=== PATIENT | male | born 1995 | race Caucasian/White ===

== ENCOUNTER 2019-05-02 21:06 | Emergency (ER) | payer BC, SELFPAY ==
[2019-05-02 21:07] VITALS: BP 104/64; PULSE 92; RESP 21; TEMP 36.7; O2SAT 97; BMI 30.5
[2019-05-02 21:19] VITALS: BP 104/64; PULSE 79; RESP 24; TEMP 36.6; O2SAT 97
--- NOTE | 2019-05-02 21:21 | ED.VIS.GEN ---
History of Present Illness Chief Complaint: Shortness of Breath Detail of Chief Complaint: Sinus congestion x1.5 weeks, respiratory symptoms for 2 days Informant: Patient Onset: Days Context: Sudden Onset Timing: Continuous Quality: Cough, wheezing and dyspnea Location: Respiratory and sinuses Current Severity: Moderate Maximum Severity: Severe Worsened by: Activity Relieved by: Nothing Associated Symptoms: Headache, nasal congestion, shortness of breath and wheezing Narrative: Patient is a 23-year-old male who has history of asthmatic bronchitis who presents to the [facility] with malaise, headache, nasal congestion, cough with shortness of breath and wheezing. Nasal symptoms started 1.5 weeks ago. Cough and respiratory symptoms started 2 days ago. He does chew tobacco. He does admit to drinking. He denies fever, chills or night sweats. He denies change in vision or blurred vision. Does complain of his eyes being bloodshot. He denies myalgias arthralgias. He denies GI symptoms. He denies ill contacts. Prior similar symptoms: Yes - Year ago Recent Illness/Hospitalization: No - Past Medical History (1) History of bronchitis Status: Acute Past Medical History - Allergies and Home Meds Allergies/Adverse Reactions: Allergies No Known Allergies Allergy (Verified 05/02/19 21:30) Primary Care Physician: Care Physician,No Primary [Primary Care Provider] - Prior records reviewed: Yes Surgical History: no surgical history Lives: Alone Smoking Status: Current every day smoker Alcohol: Rare Drugs: None Review of Systems General: Denies: Chills, Fever, Malaise, Sweats Eyes: Denies: Visual changes - bilaterally, Blurred Vision - bilaterally ENT: Reports: Rhinorrhea. Denies: Bilateral ear pain, Sore throat Cardiovascular: Denies: Chest pain, Palpitations, Heart racing Respiratory: Reports: Dyspnea, Cough, Dyspnea on exertion. Denies: Sputum Gastrointestinal: Denies: Abdominal pain, Nausea, Vomiting, Diarrhea, Melena, Hematochezia Genitourinary: Denies: Dysuria, Hematuria, Frequency Musculoskeletal: Denies: Myalgias, Arthralgias, Neck pain, Back pain, Swelling, Extremity Pain Skin: Denies: Rash, Wounds Neurological: Reports: Headache. Denies: Weakness, Parasthesia Physical Exam Vital Signs/Narrative: Vital Signs Temp Pulse Resp BP Pulse Ox 05/02/19 21:07 98.0 F 92 21 H 104/64 97 Inital Vital Signs reviewed: Yes General: Well nourished, Well developed, No Acute Distress Head: Normocephalic, Atraumatic Eyes: Perrl, EOMI. Negative for: Pale conjunctiva, Scleral icterus ENT: Moist mucous membranes, No rhinorrhea, TM's clear Neck: Supple, Nontender Cardiovascular: Regular rate, Regular rhythm, No murmurs Respiratory: Chest nontender, Wheezing, Decreased Air Movement, Retractions. Negative for: No distress, CTA bilaterally Abdomen: Soft, Nontender, Nondistended, Normal bowel sounds Back: Nontender, Normal Inspection. Negative for: CVA tenderness Extremities: Nontender, No edema Skin: Normal color, No rash Neurological: Alert, Oriented x3, Cranial nerves II-XII grossly intact, Normal Strength, Normal Sensation Psychological: Normal affect, Normal Mood Diagnostic/Tx/Re-eval Chest X-Ray - ED: 2 View, Normal, Heart, Mediastinum, Bony Structures, No Acute Disease, - - Chest x-ray was in interpreted by me as normal other than hyperaeration. My read and reviewed was after radiologist had interpreted the x-ray. Impressions Chest X-Ray 05/02/19 21:50 IMPRESSION: Hyperinflated lungs. No acute cardiopulmonary disease process is seen. Electronically Signed: Pino Syed MD at 22:23 EST , Service support , 05/02/19 21:50 Chest PA and Lateral [RAD] Stat - Medical Decision Making Chest x-ray was obtained to assess for pneumonia versus bronchitis. He was treated with albuterol and prednisone. Will reevaluate after x-rays and treatment. Was reassessed at 2245. He is no longer wheezing. Is no longer coughing. Plan is to discharge with burst of prednisone, albuterol MDI with spacer and he was told to use the and inhaler when he has uncontrolled coughing. He requested a cough syrup. He was informed to use the inhaler. ED Disposition - Plan for ED Patient: Disposition: Home or Assisted Living Diagnosis: Acute bronchitis, Hyperactive airway disease Instructions: BRONCHITIS with Wheezing (Adult) Prescriptions: Prednisone [Deltasone] 40 mg PO DAILY #10 tab Prescription Printed Inhaler, Assist Devices [Space Chamber Plus] 1 ea MC UD #1 spacer Prescription Printed Albuterol Inhaler [Ventolin Hfa] 2 puff INHALATION Q4H PRN PRN #1 inhaler PRN Reason: Wheezing Prescription Printed Referrals: Care Physician,No Primary [Primary Care Provider] - Frank Joaquin III, MD [STAFF PHYSICIAN] - 3-5 Days if not improving
[2019-05-02 21:25] VITALS: PULSE 105; RESP 18
[2019-05-02] MEDS: Albuterol 2.5 MG/3 ML VIAL.NEB. INHALATION ×3 (21:27)
[2019-05-02] MEDS: predniSONE 20 MG Tablet 60 MG PO (21:30)
--- NOTE | 2019-05-02 21:50 | RAD_ITS ---
STUDY: X-RAY CHEST REASON FOR EXAM: Male, 23 years old. Cough TECHNIQUE: PA and lateral views of the chest. COMPARISON: None. FINDINGS: The lungs are hyperinflated. There is no demonstrated pleural abnormality. Normal size heart. Normal mediastinum and chacho. Normal visualized pulmonary arteries. Normal visualized aortic arch and descending thoracic aorta. Normal visualized thoracic spine. Normal visualized ribs, clavicles, and shoulders. There is no demonstrated abnormality of the visualized soft tissue structures of the upper abdomen. RAD/Chest PA and Lateral IMPRESSION: Hyperinflated lungs. No acute cardiopulmonary disease process is seen. Electronically Signed: Pino Syed MD at 22:23 EST , Service support ,
[2019-05-02 22:09] VITALS: BP 110/71; PULSE 87; RESP 20; TEMP 36.6; O2SAT 98
[2019-05-02 22:56] VITALS: BP 110/60; PULSE 87; RESP 16; O2SAT 100
== END 2019-05-02 22:57 | disposition home or self-care (01) ==
PROVIDERS: Emergency Provider Emergency Medicine
DX: J20.9 Acute bronchitis, unspecified (principal); J45.909 Unspecified asthma, uncomplicated; F17.220 Nicotine dependence, chewing tobacco, uncomplicated
CPT/HCPCS: 71046; 94640; 99251; 99283; G0463

== ENCOUNTER 2024-03-27 10:01 | Emergency (ER) | payer SELFPAY ==
[2024-03-27 10:01] VITALS: BP 154/90; PULSE 90; RESP 18; TEMP 36.8; O2SAT 99; BMI 36.7
[2024-03-27 11:26] VITALS: O2SAT 97
--- NOTE | 2024-03-27 11:38 | EX.ED.VIS.UR ---
HPI HPI - URI History of Present Illness Chief Complaint: Cold Sx Narrative Narrative: Patient presents with cough and congestion that has been getting worse over the past 3 days. Patient states today he is coughing up some green sputum. Patient states he has had some mild shortness of breath with this. Patient also admits to a headache. Patient admits to a sore throat. Patient describes his pain as sharp. Patient states nothing makes it worse and nothing makes it better. Patient denies any fevers or chills. ROS ROS ED Constitutional Constitutional ED: Denies chills or fever(s) Eyes Eyes: Denies blurry vision or change in vision ENT ENT ED: Reports sore throat; Denies rhinorrhea Cardiovascular Cardiovascular: Denies chest pain or palpitations Respiratory/Chest Respiratory/Chest: Reports cough and dyspnea Gastrointestinal Gastrointestinal: Reports diarrhea; Denies nausea or vomiting Genitourinary Genitourinary ED: Denies dysuria or hematuria Musculoskeletal Musculoskeletal: Denies back pain or neck pain Integumentary Denies abscess or rash Neurologic Neurologic: Reports headache(s); Denies weakness Allergic/Immunologic Allergic/Immunologic ED: Denies mouth swelling or urticaria PFSH PFS Medical History (Updated 03/27/24 @ 13:[address] German Zhang DO) Chronic neck and back pain Chest pain Severe headache Shortness of breath Home Medications ?Medication ?Instructions ?Recorded ?Last Taken ?Type azithromycin 250 mg tablet 250 mg PO DAILY 4 days #4 tabs 03/27/24 Unknown Rx Allergy/AdvReac Type Severity Reaction Status Date / Time No Known Allergies Allergy Verified 03/27/24 11:26 Surgical History (Updated 03/27/24 @ 11:[address] German Zhang DO) Hx of tonsillectomy Social History Smoking Status: Current some day smoker tobacco type: smokeless tobacco Smokeless tobacco user: chewing tobacco alcohol intake: current alcohol intake frequency: holidays/special occasions only EXAM Physical Exam Const Vital Signs: 03/27/24 10:01 03/27/24 11:25 03/27/24 11:26 Temperature 98.3 F Temperature Source Temporal Pulse Rate 90 Respiratory Rate 18 Respiratory Effort Normal Normal Respiratory Depth Normal Respiratory Pattern Normal Normal Blood Pressure 154/90 H Blood Pressure Mean 111 Pulse Ox 99 Oxygen Delivery Method Room Air Room Air Positive well nourished and well developed General Appearance ED: well developed and NAD HEENT Reports moist mucous membranes normocephalic Neck supple, no meningeal signs and no JVD Resp normal respiratory effort and clear to auscultation bilaterally Cardio Rate: regular rate Rhythm: regular rhythm GI non-tender and non-distended Palpation: soft Neuro oriented x3, CN's II-XII intact bilaterally and no sensory deficits noted Sensorium / Orientation: alert Motor Exam: strength 5/5 throughout Psych mental status grossly normal MDM MDM MDM Narrative Medical decision making narrative: Differential diagnosis includes strep pharyngitis, viral pharyngitis, bronchitis, and pneumonia. Chest x-ray will be obtained to assess for pneumonia and bronchitis. Rapid strep will be obtained to assess for strep pharyngitis. COVID-19, RSV, and influenza PCR will be obtained to assess for viral illness. Lab Data Lab results narrative: COVID-19 PCR was reviewed and was negative. Influenza PCR was reviewed and was negative for influenza A and influenza B. RSV PCR was reviewed and was negative. Radiography Chest X-Ray - ED: 2 View, Read by ED Physician, Read by Radiologist and Left Infiltrate Diagnostic Testing: Clinical Impression(s) from Imaging Studies Chest X-Ray 03/27/24 11:43 IMPRESSION: Mild left basilar opacity, likely pneumonia. Electronically Signed: Naomi Weaver MD at 12:50 EDT Reading Location ID and State: [facility] / [place] Tel , Service support , PA and lateral chest x-ray was obtained. There are 2 views. On my independent interpretation, lung collier show a left basilar infiltrate. There is normal cardiac silhouette. Bony thorax is normal. Radiologist also interpreted the x-ray and agrees. Treatment and Re-Evaluation Narrative: Tobacco cessation was discussed. The patient was advised of his findings. Patient was given a dose of Zithromax here. Patient was given a prescription for Zithromax. Patient was instructed to follow-up with his primary care physician in 5 to 7 days. Patient was instructed return if worse in any way. Patient instructed use [id number] cough medications and decongestant as needed. Patient understood and was agreeable with the plan. All questions were answered. Discharge Plan Triage Chief Complaint: Cold Sx ED Provider: German Zhang Dx/Rx/DC Orders Clinical Impression: Pneumonia, Tobacco use Instructions: ED Pneumonia (Adult) Prescriptions: Changed azithromycin 250 mg tablet 250 mg PO DAILY 4 Days Qty: 4 0RF Rx Instructions: 250 mg orally; Primary Care Provider: Care Physician,No Primary Referrals: John Paul Renee MD [Med Staff - Active Staff] - 5-7 Days Care Physician,No Primary [Primary Care Provider] - Print Language: Burmese Disposition Disposition: Home, Self Care
--- NOTE | 2024-03-27 11:43 | RAD_ITS ---
HISTORY: Cough. TECHNIQUE: XR Chest 2 Views. COMPARISON: 05/02/2019. FINDINGS: CARDIOMEDIASTINAL BORDERS: Cardiac silhouette within normal limits in size. Mediastinal contour unremarkable. LUNGS: Mild consolidation in the left lung base. PLEURA: No pleural effusion or pneumothorax seen. OSSEOUS STRUCTURES: Unremarkable. RAD/Chest PA and Lateral IMPRESSION: Mild left basilar opacity, likely pneumonia. Electronically Signed: Naomi Weaver MD at 12:50 EDT ,
[2024-03-27] MEDS: Azithromycin 250 MG Tablet 500 MG PO (13:36)
[2024-03-27 13:40] VITALS: BP 134/91; PULSE 112; RESP 20; TEMP 36.6; O2SAT 99
== END 2024-03-27 13:41 | disposition home or self-care (01) ==
PROVIDERS: Emergency Provider Emergency Medicine; Visit Provider Emergency Medicine
DX: J18.9 Pneumonia, unspecified organism (principal)
CPT/HCPCS: 71046; 87631; 87651; 99283

== ENCOUNTER → 2024-11-07 04:00 | Outpatient (REF) | payer MEDICAID, SELFPAY ==
--- OUTSIDE RECORDS SUMMARY | 2024-11-07 03:58 | XMS RPT_ITS | CCD ---
Author Organization [facility] Care Team Providers Care Preparation Department Supervisor Name Role Phone PHYSICIAN, NONE Primary Care Physician Unavailab le PHYSICIAN, NONE Primary Care Unavailable RAQUEL LOAIZA MD Attending Unavailable German Zhang Attending Unavailable Care Physician, No Primary Primary Care Unava GABRIELE Day Consulting Unavailable GANGA CASTELLANO Admitting Unavailable GANGA CASTELLANO Attending Unavailable NOAH COLVIN Referring Unavailable Generic Provider , No Assigned Pcp Primary Car e Provider Unavailable Sara Montelongo Unavailable Unavailable Allergies Allergy Classification Reported Allergen(s) Allergy Type Date of Onset Reaction(s) Facility (2 sources) Cat; Translations: [CATS] Propensity to adverse reactions (disorder) 9 [facility] Repository (1 source) Dust; Translations: [DUST] Propensity to adverse reactions (disorder) 9 [facility] Medications Current Medications Medication Drug Class(es) Dates Sig (Normalized) Sig (Original) acetaminophen 325 mg oral tablet (2 sources) Start: 11-06-2024 take 3 tablets by mouth every six hours acetaminophen (Tylenol) 325 mg tablet Indications: Displaced comminuted fracture of shaft of right fibula, initial encounter for closed fracture Take 3 tablets (975 mg) by mouth every 6 hours. 11/06/2024 Active Start: 11-01-2024 take 975 mg by mouth every six hours as needed for pain 975 mg, oral, Every 6 hours scheduled, First dose on [place] 11/01/24 at 1900, If ordered PRN for pain, nurse is permitted to administer this medication for higher pain scores based on patient preference? Yes calcium carbonate 1500 mg / cholecalciferol 0.01 mg oral tablet (2 sources) Vitamin D Start: 11-02-2024 End: 11-06-2024 take 1 tablet by mouth twice daily calcium carbonate-vitamin D3 600 mg-10 mcg (400 unit) tablet Indications: Displaced comminuted fracture of shaft of right fibula, initial encounter for closed fracture Take 1 tablet by mouth 2 times a day. 11/06/2024 Active cephalexin 500 mg oral capsule (1 source) Cephalosporin Antibacterial Start: 02-23-2024 End: 03-01-2024 cephalexin 500 mg oral capsule Dose : 500 mg = 1 cap(s), Oral, q8h, # 30 cap(s), 0 Refill(s), 03/01/24 11:13:00 PM EDT, 104.5 Start Date: 02/23/24 Stop Date: 03/01/24 Status: Ordered doxycycline hyclate 100 mg oral capsule (1 source) Tetracycline-clas s Drug Start: 02-23-2024 End: 03-04-2024 doxycycline hyclate 100 mg oral capsule Dose : 100 mg = 1 cap(s), Oral, BID, X 10 day(s), # 20 cap(s), 0 Refill(s), 03/04/24 11:12:00 PM EDT, 104.5 Start Date: 02/23/24 Stop Date: 03/04/24 Status: Ordered 0.3 ml enoxaparin sodium 100 mg/ml prefilled syringe (2 sources) Low Molecular Weight Heparin Start: 11-06-2024 inject 0.3 mL by subcutaneous injection every twelve hours enoxaparin (Lovenox) 30 mg/0.3 mL syringe Indications: Displaced comminuted fracture of shaft of right fibula, initial encounter for closed fracture Inject 0.3 mL (30 mg) under the skin every 12 hours. 11/06/2024 Active Start: 11-01-2024 inject 30 mg by subc utaneous injection every twelve hours 30 mg, subcutaneous, Every 12 hours, First dose on Tue11/01/24 at 1900 folic acid 1 mg oral tablet (2 sources) Start: 11-07-2024 take 1 tablet by mouth once daily folic acid (Folvite) 1 mg tablet Indications: Alcohol use Take 1 tablet (1 mg) by mouth once daily. 11/07/2024 Active Start: 11-01-2024 take 1 mg by mouth once daily 1 mg, oral, Daily, First dose on Tue11/01/24 at 0900 Lotrimin Ultra Athlete's Foot 1% topical cream (1 source) Start: 02-23-2024 End: 03-01-2024 Lotrimin Ultra Athlete's Foot 1% topical cream Apply 1 paz, Topical, BID, # 12 gram(s), 0 Refill(s), Cream, 104.5 Start Date: 02/23/24 Stop Date: 03/01/24 Status: Ordered melatonin 3 mg oral tablet (2 sources) Start: 11-01-2024 melatonin 3 mg tablet Indications: Insomnia, unspecified type Take 1 tablet (3 mg) by mouth as needed at bedtime for sleep. 11/06/2024 Active methocarbamol 500 mg oral tablet (3 sources) Muscle Relaxant Start: 11-05-2024 take 1 tablet by mouth every six hours methocarbamol (Robaxin) 500 mg tablet Indications: Displaced comminuted fracture of shaft of right fibula, initial encounter for closed fracture Take 1 tablet (500 mg) by mouth every 6 hours. 11/06/2024 Active Start: 11-02-2024 End: 11-02-2024 take 500 mg by mouth every eight hours 500 mg, oral, Every 8 hours scheduled, First dose (after last modification) on Tue11/02/24 at 1030 multivitamin with minerals 1 tablet (1 source) Start: 11-01-2024 take 1 tablet by mouth once daily 1 tablet, oral, Daily, First dose on Tue11/01/24 at 0900 multivitamin with minerals tablet (1 source) Start: 11-07-2024 take 1 tablet by mouth once daily multivitamin with minerals tablet Indications: Alcohol use Take 1 tablet by mouth once daily. 11/07/2024 Active 24 hr nicotine 0.583 mg/hr transdermal system (2 sources) Cholinergic Nicotinic Agonist Start: 11-07-2024 apply 1 dose transdermal route every twenty-four hours nicotine (Nicoderm CQ) 14 mg/24 hr patch Indications: Cigarette smoker Place 1 patch over 24 hours on the skin once daily. 11/07/2024 Active Start: 11-03-2024 apply 1 dose transde rmal route once daily 1 patch, transdermal, Administer over 24 Hours, Daily, First dose on Tue11/03/24 at 1245 oxyCODONE hydrochloride 5 mg oral tablet (3 sources) Opioid Agonist Start: 11-01-2024 End: 11-09-2024 take 1 tablet by mouth every six hours for pain oxyCODONE (Roxicodone) 5 mg immediate release tablet Indications: Displaced comminuted fracture of shaft of right fibula, initial encounter for closed fracture Take 1 tablet (5 mg) by mouth every 6 hours if needed for severe pain (7 - 10) for up to 3 days. 6 tablet 11/06/2024 11/09/2024 Active Start: 11-01-2024 take 1 tablet by rose th every four hours as needed 10 mg, oral, Every 4 hours PRN, pain severe (7-10), first line, Starting on Zuly 11/01/24 at 1835, If ordered PRN for pain, nurse is permitted to administer this medication for higher pain scores based on patient preference? Yes oxygen (O2) therapy (1 source) Start: 11-01-2024 PHENobarbital 64.8 mg oral tablet (3 sources) Start: 11-06-2024 take 1 tablet by mouth every six hours PHENobarbital (Luminal) 64.8 mg tablet Indications: Alcohol use Take 1 tablet (64.8 mg) by mouth every 6 hours if needed (RASS >=2 (agitation) AND/OR >=2 of the LYNDA symptoms (SBP > 160 mmHG, HR >110bpm, diaphoresis, tremors, hallucinations)). 11/06/2024 Active Start: 11-01-2024 take 1 tablet by rose th every six hours as needed 64.8 mg, oral, Every 6 hours PRN, RASS >=2 (agitation) AND/OR >=2 of the LYNDA symptoms (SBP > 160 mmHG, HR >110bpm, diaphoresis, tremors, hallucinations), Starting on Zuly 11/01/24 at 0412 Start: 11-01-2024 End: 11-01-2024 165.75 mg (rounded from 164. 16 mg = 2.4 mg/kg 68.4 kg [place] weight), intramuscular, Once, On Zuly 11/01/24 at 0415, For 1 dose polyethylene glycol 3350 56077 mg powder for oral solution (2 sources) Osmotic Laxative Start: 11-07-2024 polyethylene glycol (Glycolax, Miralax) 17 gram packet Indications: Drug-induced constipation Take 17 g by mouth once daily. 11/07/2024 Active Start: 11-01-2024 17 g, oral, Da alexandrea, First dose on [facility] 11/01/24 at 1900, Bowel Regimen - for prevention of constipation. thiamine 100 mg oral tablet (3 sources) Start: 11-07-2024 take 1 tablet by mouth once daily thiamine (Vitamin B-1) 100 mg tablet Indications: Alcohol use Take 1 tablet (100 mg) by mouth once daily. 11/07/2024 Active Start: 11-04-2024 100 mg, oral, Daily, First dose on [place] 11/04/24 at 0900, To start after three days of IV Start: 11-01-2024 End: 11-04-2024 100 mg, intravenous, Daily, First dose on [facility] 11/01/24 at 0900, For 3 doses, For IV push use, administer over 1-2 minutes. Completed/Discontinued Medications Medication Drug Class(es) Dates Sig (Normalized) Sig (Original) calcium chloride 0.0014 meq/ml / potassium chloride 0.004 meq/ml / sodium chloride 0.103 meq/ml / sodium lactate 0.028 meq/ml injectable solution (2 sources) Start: 11-01-2024 End: 11-01-2024 take 100 mL intravenously every hour 100 mL/hr, intravenous, Continuous, Starting on [facility] 11/01/24 at 1430, For 1 day, Recovery (only) Start: 11-01-2024 End: 11-01-2024 1,000 mL, intravenous, at 99 9 mL/hr, Administer over 1 Hours, Once, On [facility] 11/01/24 at 1055, For 1 dose ceFAZolin 2000 mg injection (1 source) Cephalosporin Antibacterial Start: 11-01-2024 End: 11-02-2024 take 2 g intravenously every eight hours 2 g, intravenous, Administer over 30 Minutes, Every 8 hours, First dose on [facility] 11/01/24 at 2100, For 2 doses, premix bag, Dosing of this medication varies based on severity of illness. Does this patient have sepsis or concern for sepsis (probable or documented infection plus systemic manifestations of infection)? No, Suspected Indication (Select all that apply): Surgical Prophylaxis, Indications: Surgical Prophylaxis 0.5 ml HYDROmorphone hydrochloride 1 mg/ml prefilled syringe (3 sources) Opioid Agonist Start: 11-01-2024 End: 11-05-2024 0.2 mg, intravenous, Every 2 hour PRN, pain breakthrough, Starting on Tue11/01/24 at 1835 Start: 11-01-2024 End: 11-01-2024 0.5 mg, intravenous, Every 5 min PRN, pain severe (7-10), first line, Starting on Tue11/01/24 at 1405, Recovery (only), Max total of 4 mg regardless of dose. Start: 11-01-2024 End: 11-02-2024 0.4 mg, intravenous, Every 3 hours PRN, pain severe (7-10), first line, Starting on Tue11/01/24 at 0753 iohexol (OMNIPaque) 350 mg iodine/mL solution 100 mL (1 source) Start: 11-01-2024 End: 11-01-2024 100 mL, intravenous, Once in imaging, Starting on Tue11/01/24 at 0017, For 1 dose 1 ml morphine sulfate 4 mg/ml injection (1 source) Opioid Agonist Start: 10-31-2024 End: 10-31-2024 2 mg, intravenous, Once, On Tue10/31/24 at 1945, For 1 dose Problems Problem Classification Problem Date Documented Da te Episodic/Chronic Alcohol-related disorders (1 source) Current drinker; Translations: [Alcohol use] 11-06-2024 Chronic Fracture of lower limb (8 sources) Displaced comminuted fracture of shaft of right fibula, initial encounter for closed fracture; Translations: [Closed fracture of shaft of fibula] Onset: 10-31-2024 Episodic Other gastrointestinal disorders (1 source) Drug-induced constipation; Translations: [Drug induced constipation] 11-06-2024 Episodic Other nutritional; endocrine; and metabolic disorders (2 sources) Obesity; Translations: [Obesity, unspecified] Onset: 11-01-2024 11-01-2024 Chronic Residual codes; unclassified (1 source) Insomnia; Translations: [Insomnia, unspecified] 11-06-2024 Episodic Substance-related disorders (1 source) Cigarette smoker ; Translations: [Nicotine dependence, cigarettes, uncomplicated] 11-06-2024 Chronic Unclassified (1 source) Cough, unspecified; Translations: [Cough, unspecified] Onset: 04-16-2024 Results Test Name Value Interpretation Reference Range Facility CBC panel Auto (Bld)on 11-03 Erythrocyte distribution width (RBC) [Ratio] 12.2 % 11.5 - 14.5 % [facility] Hematocrit (Bld) [Volume fraction] 42.7 % 41.0 - 52.0 % [facility] Hemoglobin (Bld) [Mass/Vol] 13.6 g/dL 13.5 - 17.5 g/dL [facility] Interpretation and review of laboratory results Abnormal [facility] MCH (RBC) [Entitic mass] 30 pg 26.0 - 34.0 pg [facility] MCHC (RBC) [Mass/Vol] 31.9 g/dL Low 32.0 - 36.0 g/dL [facility] MCV (RBC) [Entitic vol] 94 fL 80 - 100 fL [facility] Nucleated RBC/100 WBC (Bld) [Ratio] 0 % [facility] Platelets (Bld) [#/Vol] 174 10*3/uL [facility] RBC (Bld) [#/Vol] 4.54 10*6/uL [facility] WBC (Bld) [#/Vol] 8 10*3/uL [facility] Erythrocyte distribution width (RBC) [Ratio] 12.2 % Normal 11.5-14.5 [facility] Comment on above: Performed By: #### 5 8410-2 ####MIRANDA Sims ([id number])[facility] ([facility])[id number] [place] [address] Hematocrit (Bld) [Volume fraction] 42.7 % Normal 41.0-52.0 [facility] Comment on above: Performed By: #### 5 8410-2 ####MIRANDA Sims ([id number])[facility] ([facility])[id number] [place] [address] Hemoglobin (Bld) [Mass/Vol] 13.6 g/dL Normal 13.5-17.5 [facility] Comment on above: Performed By: #### 5 8410-2 ####MIRANDA Sims ([id number])[facility] ([facility])[address] [place] [address] MCH (RBC) [Entitic mass] 30.0 pg Normal 26.0-34.0 [facility] Comment on above: Performed By: #### 5 8410-2 ####MIRANDA Sims ([id number])[facility] ([facility])[address] [place] [address] MCHC (RBC) [Mass/Vol] 31.9 g/dL Low 32.0-36.0 [facility] Comment on above: Performed By: #### 5 8410-2 ####MIRANDA Sims ([id number])[facility] ([facility])[id number] [place] [address] MCV (RBC) [Entitic vol] 94 fL Normal 80-100 [facility] Comment on above: Performed By: #### 5 8410-2 ####MIRANDA Sims ([id number])[facility] ([facility])[address] [place] [address] Nucleated RBC/100 WBC (Bld) [Ratio] 0.0 /100 WBCs Normal 0.0-0.0 [facility] Comment on above: Performed By: #### 5 8410-2 ####MIRANDA Sims ([id number])[facility] ([facility])[address] [place] [address] Platelets (Bld) [#/Vol] 174 x10*3/uL Normal 150-450 [facility] Comment on above: Performed By: #### 5 8410-2 ####MIRANDA Sims ([id number])[facility] ([facility])[address] [place] [address] RBC (Bld) [#/Vol] 4.54 x10*6/uL Normal 4.50-5.90 [facility] Comment on above: Performed By: #### 5 8410-2 ####MIRANDA Sims ([id number])[facility] ([facility])[address] [place] [address] WBC (Bld) [#/Vol] 8.0 x10*3/uL Normal 4.4-11.3 [facility] Comment on above: Performed By: #### 5 8410-2 ####MIRANDA Sims ([id number])[facility] ([facility])[address] [place] [address] CBC panel Auto (Bld)on 11-02 Erythrocyte distribution width (RBC) [Ratio] 12.1 % 11.5 - 14.5 % [facility] Hematocrit (Bld) [Volume fraction] 41.3 % 41.0 - 52.0 % [facility] Hemoglobin (Bld) [Mass/Vol] 13.6 g/dL 13.5 - 17.5 g/dL [facility] Interpretation and review of laboratory results Abnormal [facility] MCH (RBC) [Entitic mass] 29.8 pg 26.0 - 34.0 pg [facility] MCHC (RBC) [Mass/Vol] 32.9 g/dL 32.0 - 36.0 g/dL [facility] MCV (RBC) [Entitic vol] 90 fL 80 - 100 fL [facility] Nucleated RBC/100 WBC (Bld) [Ratio] 0 % [facility] Platelets (Bld) [#/Vol] 209 10*3/uL [facility] RBC (Bld) [#/Vol] 4.57 10*6/uL [facility] WBC (Bld) [#/Vol] 13.9 10*3/uL [facility] Erythrocyte distribution width (RBC) [Ratio] 12.1 % Normal 11.5-14.5 [facility] Comment on above: Performed By: #### 5 8410-2 ####MIRANDA Sims ([id number])[facility] ([facility])[address] [place] [address] Hematocrit (Bld) [Volume fraction] 41.3 % Normal 41.0-52.0 [facility] Comment on above: Performed By: #### 5 8410-2 ####MIRANDA Sims ([id number])[facility] ([facility])[address] [place] [address] Hemoglobin (Bld) [Mass/Vol] 13.6 g/dL Normal 13.5-17.5 [facility] Comment on above: Performed By: #### 5 8410-2 ####MIRANDA Sims ([id number])[facility] ([facility])[address] [place] [address] MCH (RBC) [Entitic mass] 29.8 pg Normal 26.0-34.0 [facility] Comment on above: Performed By: #### 5 8410-2 ####MIRANDA Sims ([id number])[facility] ([facility])[address] [place] [address] MCHC (RBC) [Mass/Vol] 32.9 g/dL Normal 32.0-36.0 [facility] Comment on above: Performed By: #### 5 8410-2 ####MIRANDA Sims ([id number])[facility] ([facility])[address] [place] [address] MCV (RBC) [Entitic vol] 90 fL Normal 80-100 [facility] Comment on above: Performed By: #### 5 8410-2 ####MIRANDA Sims ([id number])[facility] ([facility])[address] [place] [address] Nucleated RBC/100 WBC (Bld) [Ratio] 0.0 /100 WBCs Normal 0.0-0.0 [facility] Comment on above: Performed By: #### 5 8410-2 ####MIRANDA Sims ([id number])[facility] ([facility])[address] [place] [address] Platelets (Bld) [#/Vol] 209 x10*3/uL Normal 150-450 [facility] Comment on above: Performed By: #### 5 8410-2 ####MIRANDA Sims ([id number])[facility] ([facility])[address] [place] [address] RBC (Bld) [#/Vol] 4.57 x10*6/uL Normal 4.50-5.90 [facility] Comment on above: Performed By: #### 5 8410-2 ####MIRANDACHATO ARANDABETTYE L ([id number])[facility] ([facility])[address] [place] [address] WBC (Bld) [#/Vol] 13.9 x10*3/uL High 4.4-11.3 [facility] Comment on above: Performed By: #### 5 8410-2 ####MIRANDA ROSIBETTYE L ([id number])[facility] ([facility])[address] [place] [address] Renal function 2000 panelon 11-02-2024 Albumin BCP dye [Mass/Vol] 3.9 g/dL 3.4 - 5.0 g/dL [facility] Anion gap [Moles/Vol] 14 mmol/L 10 - 20 mmol/L [facility] Calcium [Mass/Vol] 8.9 mg/dL 8.6 - 10. 6 mg/dL [facility] Chloride [Moles/Vol] 100 mmol/L 98 - 10 7 mmol/L [facility] CO2 [Moles/Vol] 28 mmol/L 21 - 32 mmol/L [facility] Creatinine [Mass/Vol] 1.02 mg/dL 0.50 - 1.30 mg/dL [facility] eGFR - PINF [facility] Comment on above: Calculations of davey mated GFR are performed using the 2020 CKD-EPI Study Refit equation without the race variable for the IDMS-Traceable creatinine methods. https://jasn.asnjournals.org/content//ASN.91300 92626 Glucose [Mass/Vol] 170 mg/dL High 74 - 99 mg/dL [facility] Interpretation and review of laboratory results Abnormal [facility] Phosphate [Mass/Vol] 3.3 mg/dL 2.5 - 4 .9 mg/dL [facility] Potassium [Moles/Vol] 4.2 mmol/L 3.5 - 5.3 mmol/L [facility] Sodium [Moles/Vol] 138 mmol/L 136 - 145 mmol/L [facility] Urea nitrogen [Mass/Vol] 14 mg/dL 6 - 23 mg/dL [facility] Albumin BCP dye [Mass/Vol] 3.9 g/dL Normal 3.4-5.0 [facility] Comment on above: Performed By: #### 2 4362-6 ####MIRANDA Sims ([id number])[facility] ([facility])[address] [place] [address] Anion gap [Moles/Vol] 14 mmol/L Normal 10-20 [facility] Comment on above: Performed By: #### 2 4362-6 ####MIRANDA Sims ([id number])[facility] ([facility])[address] [place] [address] Calcium [Mass/Vol] 8.9 mg/dL Normal 8.6-10.6 [facility] Comment on above: Performed By: #### 2 4362-6 ####MIRANDA Sims ([id number])[facility] ([facility])[address] [place] [address] Chloride [Moles/Vol] 100 mmol/L Normal 98-107 [facility] Comment on above: Performed By: #### 2 4362-6 ####MIRANDA Sims ([id number])[facility] ([facility])[address] [place] [address] CO2 [Moles/Vol] 28 mmol/L Normal 21-32 [facility] Comment on above: Performed By: #### 2 4362-6 ####MIRANDA Sims ([id number])[facility] ([facility])[address] [place] [address] Creatinine [Mass/Vol] 1.02 mg/dL Normal 0.50-1.30 [facility] Comment on above: Performed By: #### 2 4362-6 ####MIRANDA Sims ([id number])[facility] ([facility])[address] [place] [address] GFR/1.73 sq M.predicted MDRD (S/P/Bld) [Vol rate/Area] mL/min/{1.73_m2} Normal >60 [facility] Comment on above: Result Comment: Calc ulations of estimated GFR are performed using the 2020 CKD-EPI Study Refit equation without the race variable for the IDMS-Traceable creatinine methods. https://jasn.asnjournals.org/content/early/ASN.47403 55888 Performed By: #### 2 4362-6 ####MIRANDA Sims ([id number])[facility] ([facility])[address] [place] [address] Glucose [Mass/Vol] 170 mg/dL High 74-99 [facility] Comment on above: Performed By: #### 2 4362-6 ####MIRANDA Sims ([id number])[facility] ([facility])[address] [place] [address] Phosphate [Mass/Vol] 3.3 mg/dL Normal 2.5-4.9 [facility] Comment on above: Performed By: #### 2 4362-6 ####MIRANDA Sims ([id number])[facility] ([facility])[address] [place] [address] Potassium [Moles/Vol] 4.2 mmol/L Normal 3.5-5.3 [facility] Comment on above: Performed By: #### 2 4362-6 ####MIRANDA GONZALEZ L ([id number])[facility] ([facility])[address] [place] [address] Sodium [Moles/Vol] 138 mmol/L Normal 136-145 [facility] Comment on above: Performed By: #### 2 4362-6 ####MIRANDA GONZALEZ L ([id number])[facility] ([facility])[address] [place] [address] Urea nitrogen [Mass/Vol] 14 mg/dL Normal 6-23 [facility] Comment on above: Performed By: #### 2 4362-6 ####MIRANDA Sims ([id number])[facility] ([facility])[address] [place] [address] TSH WITH REFLEX TO FREE T4 I F ABNORMALon 11-02-2024 TSH Qn 1.52 m[IU]/L Normal 0.44-3.98 [facility] Comment on above: Order Comment: TSH t esting is performed using different testing methodology at [facility] than at [facility]. Direct result comparisons should only be made within the same method. Performed By: #### T HYDS ####MIRANDA Sims ([id number])[facility] ([facility])[address] [place] [address] TSH with reflex to Free T4 i f abnormalon 11-02-2024 Interpretation and review of laboratory results Normal [facility] TSH Qn 1.52 m[IU]/L [facility] TSH testing is performed using different testing methodology at [facility] than at [facility]. Direct result comparisons should only be made within the same method. [facility] Blood type and Indirect anti body screen panel (Bld)on 11-01-2024 ABO group Nom (Bld) A [facility] Blood group antibody screen Ql Negative [facility] D Ag Ql (Bld) Positive [facility] CBC panel Auto (Bld)on 11-01 Erythrocyte distribution width (RBC) [Ratio] 12.3 % 11.5 - 14.5 % [facility] Hematocrit (Bld) [Volume fraction] 45.5 % 41.0 - 52.0 % [facility] Hemoglobin (Bld) [Mass/Vol] 15.2 g/dL 13.5 - 17.5 g/dL [facility] Interpretation and review of laboratory results Normal [facility] MCH (RBC) [Entitic mass] 30.4 pg 26.0 - 34.0 pg [facility] MCHC (RBC) [Mass/Vol] 33.4 g/dL 32.0 - 36.0 g/dL [facility] MCV (RBC) [Entitic vol] 91 fL 80 - 100 fL [facility] Nucleated RBC/100 WBC (Bld) [Ratio] 0 % [facility] Platelets (Bld) [#/Vol] 204 10*3/uL [facility] RBC (Bld) [#/Vol] 5 10*6/uL [facility] WBC (Bld) [#/Vol] 10.2 10*3/uL [facility] Erythrocyte distribution width (RBC) [Ratio] 12.3 % Normal 11.5-14.5 [facility] Comment on above: Performed By: #### 5 8410-2 ####MIRANDA Sims ([id number])[facility] ([facility])[address] [place] [address] Hematocrit (Bld) [Volume fraction] 45.5 % Normal 41.0-52.0 [facility] Comment on above: Performed By: #### 5 8410-2 ####MIRANDA Sims ([id number])[facility] ([facility])[id number] [place] [address] Hemoglobin (Bld) [Mass/Vol] 15.2 g/dL Normal 13.5-17.5 [facility] Comment on above: Performed By: #### 5 8410-2 ####MIRANDA Sims ([id number])[facility] ([facility])[id number] [place] [address] MCH (RBC) [Entitic mass] 30.4 pg Normal 26.0-34.0 [facility] Comment on above: Performed By: #### 5 8410-2 ####MIRANDA Sims ([id number])[facility] ([facility])[id number] [place] [address] MCHC (RBC) [Mass/Vol] 33.4 g/dL Normal 32.0-36.0 [facility] Comment on above: Performed By: #### 5 8410-2 ####MIRANDA GONZALEZ L ([id number])[facility] ([facility])[address] [place] [address] MCV (RBC) [Entitic vol] 91 fL Normal 80-100 [facility] Comment on above: Performed By: #### 5 8410-2 ####MIRANDA STEVEMODEEPA L ([id number])[facility] ([facility])[address] [place] [address] Nucleated RBC/100 WBC (Bld) [Ratio] 0.0 /100 WBCs Normal 0.0-0.0 [facility] Comment on above: Performed By: #### 5 8410-2 ####MIRANDA GONZALEZ L ([id number])[facility] ([facility])[id number] [place] [address] Platelets (Bld) [#/Vol] 204 x10*3/uL Normal 150-450 [facility] Comment on above: Performed By: #### 5 8410-2 ####MIRANDA STEVEMODEEPA L ([id number])[facility] ([facility])[id number] [place] [address]69 RBC (Bld) [#/Vol] 5.00 x10*6/uL Normal 4.50-5.90 [facility] Comment on above: Performed By: #### 5 8410-2 ####MIRANDA STEVEMOTZBETTYE L ([id number])[facility] ([facility])[address] [place] [address] WBC (Bld) [#/Vol] 10.2 x10*3/uL Normal 4.4-11.3 [facility] Comment on above: Performed By: #### 5 8410-2 ####MIRANDA STEVEMOTZER L ([id number])[facility] ([facility])[id number] [place] [address] Cervical spine WO contras ton 11-01-2024 1. No acute fracture or traumatic malalignment of the cervical spine. I personally reviewed the images/study and resident's interpretation and I agree with the findings as stated by Anisa Mena MD (resident radiologist). This study was analyzed and interpreted at [place], [place]. MACRO: None. Signed by: Julián Mendez 11/01/2024 1:04 AM Dictation workstation: [id number] MMODAL Interpreted By: Julián Mendez and Hofer Lindsay STUDY: CT CERVICAL SPINE WO IV CONTRAST; 11/01/2024 12:31 am INDICATION: Signs/Symptoms:fall/s eizure. COMPARISON: None. ACCESSION NUMBER(S): [id number] ORDERING CLINICIAN: EDNA CHOUDHARY TECHNIQUE: Axial noncontrast images of the cervical spine with coronal and sagittal reconstructed images. FINDINGS: PREVERTEBRAL SOFT TISSUES: Within normal limits. CRANIOCERVICAL JUNCTION: Intact. ALIGNMENT: Straightening of the normal cervical lordosis, which may be positional or related to spasm. VERTEBRAE: No acute fracture. Vertebral body heights are maintained. SPINAL CANAL/INTERVERTEBRAL DISCS: No high-grade spinal canal stenosis. No significant disc height loss. NEURAL FORAMINA: No significant neural foraminal stenosis. OTHER: The visualized upper lung collier are clear. MMODAL Julián Mendez MD - 11/01/2024 Interpreted By: Julián Mendez and Hofer Lindsay STUDY: CT CERVICAL SPINE WO IV CONTRAST; 11/01/2024 12:31 am INDICATION: Signs/Symptoms:fall/s eizure. COMPARISON: None. ACCESSION NUMBER(S): [id number] ORDERING CLINICIAN: EDNA CHOUDHARY TECHNIQUE: Axial noncontrast images of the cervical spine with coronal and sagittal reconstructed images. FINDINGS: PREVERTEBRAL SOFT TISSUES: Within normal limits. CRANIOCERVICAL JUNCTION: Intact. ALIGNMENT: Straightening of the normal cervical lordosis, which may be positional or related to spasm. VERTEBRAE: No acute fracture. Vertebral body heights are maintained. SPINAL CANAL/INTERVERTEBRAL DISCS: No high-grade spinal canal stenosis. No significant disc height loss. NEURAL FORAMINA: No significant neural foraminal stenosis. OTHER: The visualized upper lung collier are clear. IMPRESSION: 1. No acute fracture or traumatic malalignment of the cervical spine. I personally reviewed the images/study and resident's interpretation and I agree with the findings as stated by Anisa Mena MD (resident radiologist). This study was analyzed and interpreted at [facility], [place], [place]. MACRO: None. Signed by: Julián Mendez 11/01/2024 1:04 AM Dictation workstation: [id number] [facility] Work Phone: [facility] Work Phone: Creatine Kinaseon 11-01-2024 CK [Catalytic activity/Vol] 56 U/L 0 - 325 U/L [facility] Creatine kinaseon 11-01-2024 CK [Catalytic activity/Vol] 56 U/L Normal 0-325 [facility] Comment on above: Performed By: #### 2 157-6 ####MIRANDA Sims ([id number])[facility] ([facility])[address] [place] [address] DRUG SCREEN,URINEon 11-02-19 25 Amphetamines Screen Ql (U) Negative Presumptive Negative [facility] Comment on above: CUTOFF LEVEL: 500 NG /ML Cross-reactivity has been reported with high concentrations of the following drugs: buproprion, chloroquine, chlorpromazine, ephedrine, mephentermine, fenfluramine, phentermine, phenylpropanolamine, pseudoephedrine, and propranolol. Barbiturates Screen Ql (U) Negative Presumptive Negative [facility] Comment on above: CUTOFF LEVEL: 200 NG /ML Benzodiazepines Ql (U) Negative Presu mptive Negative [facility] Comment on above: CUTOFF LEVEL: 200 NG /ML Benzoylecgonine Screen Ql (U) Positive Abnormal Presumptive Negative [facility] Comment on above: CUTOFF LEVEL: 150 NG /ML Cannabinoids Screen Ql (U) Positive Abnormal Presumptive Negative [facility] Comment on above: CUTOFF LEVEL: 50 NG/ ML fentaNYL+Norfentanyl Screen Ql (U) Negative Presumptive Negative [facility] Comment on above: CUTOFF LEVEL: 5 NG/M L Interpretation and review of laboratory results Abnormal [facility] Methadone Screen Ql (U) Negative Presumptive Negative [facility] Comment on above: CUTOFF LEVEL: 150 NG /ML The metabolite Z-ifzbe-pzehjnhfhzyoqz (LAAM) is not detected by this method in concentrations that would be found in the urine of patients on LAAM therapy. Opiates Screen Ql (U) Negative Presum ptive Negative [facility] Comment on above: CUTOFF LEVEL: 300 NG /ML The opiate screen does not detect fentanyl, meperidine, or tramadol. Oxycodone is not consistently detected (refer to Oxycodone Screen, Urine result). oxyCODONE+oxyMORphone Screen Ql (U) Negative Presumptive Negative [facility] Comment on above: CUTOFF LEVEL: 100 NG /ML This test will accurately detect both oxycodone and oxymorphone. Phencyclidine Ql (U) Negative Presump tive Negative [facility] Comment on above: CUTOFF LEVEL: 25 NG/ ML Cross-reactivity has been reported with dextromethorphan. Drug screen results are presumptive and should not be used to assess compliance with prescribed medication. Contact the performing [facility] laboratory to add-on definitive confirmatory testing if clinically indicated. Toxicology screening results are reported qualitatively. The concentration must be greater than or equal to the cutoff to be reported as positive. The concentration at which the screening test can detect an individual drug or metabolite varies. The absence of expected drug(s) and/or drug metabolite(s) may indicate non-compliance, inappropriate timing of specimen collection relative to drug administration, poor drug absorption, diluted/adulterated urine, or limitations of testing. For medical purposes only; not valid for forensic use. Interpretive questions should be directed to the laboratory medical directors. [facility] Amphetamines Screen Ql (U) Negative Normal Presumptive Negative [facility] Comment on above: Order Comment: Drug screen results are presumptive and should not be used to assesscompliance with prescribed medication. Contact the performing [facility] laboratoryto add-on definitive confirmatory testing if clinically indicated.Toxicology screening results are reported qualitatively. The concentration must???be greater than or equal to the cutoff to be reported as positive. The concentrationat which the screening test can detect an individual drug or metabolite varies.The absence of expected drug(s) and/or drug metabolite(s) may indicate non-compliance,inappropriate timing of specimen collection relative to drug administration, poor drugabsorption, diluted/adulterated urine, or limitations of testing. For medical purposesonly; not valid for forensic use.Interpretive questions should be directed to the laboratory medical directors. Result Comment: CUTO FF LEVEL: 500 NG/ML Cross-reactivity has been reported with high concentrations of the following drugs: buproprion, chloroquine, chlorpromazine, ephedrine, mephentermine, fenfluramine, phentermine, phenylpropanolamine, pseudoephedrine, and propranolol. Performed By: #### D RUG3 ####MIRANDA Sims ([id number])[facility] ([facility])[address] [place] [address] Barbiturates Screen Ql (U) Negative Normal Presumptive Negative [facility] Comment on above: Order Comment: Drug screen results are presumptive and should not be used to assesscompliance with prescribed medication. Contact the performing [facility] laboratoryto add-on definitive confirmatory testing if clinically indicated.Toxicology screening results are reported qualitatively. The concentration must???be greater than or equal to the cutoff to be reported as positive. The concentrationat which the screening test can detect an individual drug or metabolite varies.The absence of expected drug(s) and/or drug metabolite(s) may indicate non-compliance,inappropriate timing of specimen collection relative to drug administration, poor drugabsorption, diluted/adulterated urine, or limitations of testing. For medical purposesonly; not valid for forensic use.Interpretive questions should be directed to the laboratory medical directors. Result Comment: CUTO FF LEVEL: 200 NG/ML Performed By: #### D RUG3 ####MIRANDA Sims ([id number])[facility] ([facility])[address] [place], [place] [phone] Benzodiazepines Ql (U) Negative Normal Presu mptive Negative [facility] Comment on above: Order Comment: Drug screen results are presumptive and should not be used to assesscompliance with prescribed medication. Contact the performing [facility] laboratoryto add-on definitive confirmatory testing if clinically indicated.Toxicology screening results are reported qualitatively. The concentration must???be greater than or equal to the cutoff to be reported as positive. The concentrationat which the screening test can detect an individual drug or metabolite varies.The absence of expected drug(s) and/or drug metabolite(s) may indicate non-compliance,inappropriate timing of specimen collection relative to drug administration, poor drugabsorption, diluted/adulterated urine, or limitations of testing. For medical purposesonly; not valid for forensic use.Interpretive questions should be directed to the laboratory medical directors. Result Comment: CUTO FF LEVEL: 200 NG/ML Performed By: #### D RUG3 ####MIRANDA Sims ([id number])[facility] ([facility])[address] [place] [address] Benzoylecgonine Screen Ql (U) Positive Abnormal Presumptive Negative [facility] Comment on above: Order Comment: Drug screen results are presumptive and should not be used to assesscompliance with prescribed medication. Contact the performing [facility] laboratoryto add-on definitive confirmatory testing if clinically indicated.Toxicology screening results are reported qualitatively. The concentration must???be greater than or equal to the cutoff to be reported as positive. The concentrationat which the screening test can detect an individual drug or metabolite varies.The absence of expected drug(s) and/or drug metabolite(s) may indicate non-compliance,inappropriate timing of specimen collection relative to drug administration, poor drugabsorption, diluted/adulterated urine, or limitations of testing. For medical purposesonly; not valid for forensic use.Interpretive questions should be directed to the laboratory medical directors. Result Comment: CUTO FF LEVEL: 150 NG/ML Performed By: #### D RUG3 ####MIRANDA Sims ([id number])[facility] ([facility])[address] [place], [place] [phone] Cannabinoids Screen Ql (U) Positive Abnormal Presumptive Negative [facility] Comment on above: Order Comment: Drug screen results are presumptive and should not be used to assesscompliance with prescribed medication. Contact the performing [facility] laboratoryto add-on definitive confirmatory testing if clinically indicated.Toxicology screening results are reported qualitatively. The concentration must???be greater than or equal to the cutoff to be reported as positive. The concentrationat which the screening test can detect an individual drug or metabolite varies.The absence of expected drug(s) and/or drug metabolite(s) may indicate non-compliance,inappropriate timing of specimen collection relative to drug administration, poor drugabsorption, diluted/adulterated urine, or limitations of testing. For medical purposesonly; not valid for forensic use.Interpretive questions should be directed to the laboratory medical directors. Result Comment: CUTO FF LEVEL: 50 NG/ML Performed By: #### D RUG3 ####MIRANDA ARANDAER L ([id number])[facility] ([facility])[address] [place] [address] fentaNYL+Norfentanyl Screen Ql (U) Negative Normal Presumptive Negative [facility] Comment on above: Order Comment: Drug screen results are presumptive and should not be used to assesscompliance with prescribed medication. Contact the performing [facility] laboratoryto add-on definitive confirmatory testing if clinically indicated.Toxicology screening results are reported qualitatively. The concentration must???be greater than or equal to the cutoff to be reported as positive. The concentrationat which the screening test can detect an individual drug or metabolite varies.The absence of expected drug(s) and/or drug metabolite(s) may indicate non-compliance,inappropriate timing of specimen collection relative to drug administration, poor drugabsorption, diluted/adulterated urine, or limitations of testing. For medical purposesonly; not valid for forensic use.Interpretive questions should be directed to the laboratory medical directors. Result Comment: CUTO FF LEVEL: 5 NG/ML Performed By: #### D RUG3 ####MIRANDA ARANDAER L ([id number])[facility] ([facility])[address] [place], [place] [phone] Methadone Screen Ql (U) Negative Normal Presumptive Negative [facility] Comment on above: Order Comment: Drug screen results are presumptive and should not be used to assesscompliance with prescribed medication. Contact the performing [facility] laboratoryto add-on definitive confirmatory testing if clinically indicated.Toxicology screening results are reported qualitatively. The concentration must???be greater than or equal to the cutoff to be reported as positive. The concentrationat which the screening test can detect an individual drug or metabolite varies.The absence of expected drug(s) and/or drug metabolite(s) may indicate non-compliance,inappropriate timing of specimen collection relative to drug administration, poor drugabsorption, diluted/adulterated urine, or limitations of testing. For medical purposesonly; not valid for forensic use.Interpretive questions should be directed to the laboratory medical directors. Result Comment: CUTO FF LEVEL: 150 NG/ML The metabolite X-awtra-dcrrvevkkcynko (LAAM) is not detected by this method in concentrations that would be found in the urine of patients on LAAM therapy. Performed By: #### D RUG3 ####MIRANDA Sims ([id number])[facility] ([facility])[address] [place], [place] [phone] Opiates Screen Ql (U) Negative Normal Presum ptive Negative [facility] Comment on above: Order Comment: Drug screen results are presumptive and should not be used to assesscompliance with prescribed medication. Contact the performing [facility] laboratoryto add-on definitive confirmatory testing if clinically indicated.Toxicology screening results are reported qualitatively. The concentration must???be greater than or equal to the cutoff to be reported as positive. The concentrationat which the screening test can detect an individual drug or metabolite varies.The absence of expected drug(s) and/or drug metabolite(s) may indicate non-compliance,inappropriate timing of specimen collection relative to drug administration, poor drugabsorption, diluted/adulterated urine, or limitations of testing. For medical purposesonly; not valid for forensic use.Interpretive questions should be directed to the laboratory medical directors. Result Comment: CUTO FF LEVEL: 300 NG/ML The opiate screen does not detect fentanyl, meperidine, or tramadol. Oxycodone is not consistently detected (refer to Oxycodone Screen, Urine result). Performed By: #### D RUG3 ####MIRANDA Sims ([id number])[facility] ([facility])[address] [place], [place] [phone] oxyCODONE+oxyMORphone Screen Ql (U) Negative Normal Presumptive Negative [facility] Comment on above: Order Comment: Drug screen results are presumptive and should not be used to assesscompliance with prescribed medication. Contact the performing [facility] laboratoryto add-on definitive confirmatory testing if clinically indicated.Toxicology screening results are reported qualitatively. The concentration must???be greater than or equal to the cutoff to be reported as positive. The concentrationat which the screening test can detect an individual drug or metabolite varies.The absence of expected drug(s) and/or drug metabolite(s) may indicate non-compliance,inappropriate timing of specimen collection relative to drug administration, poor drugabsorption, diluted/adulterated urine, or limitations of testing. For medical purposesonly; not valid for forensic use.Interpretive questions should be directed to the laboratory medical directors. Result Comment: CUTO FF LEVEL: 100 NG/ML This test will accurately detect both oxycodone and oxymorphone. Performed By: #### [place] RUG3 ####MIRANDA Sims ([id number])[facility] ([facility])[address] [place] [address] Phencyclidine Ql (U) Negative Normal Presump tive Negative [facility] Comment on above: Order Comment: Drug screen results are presumptive and should not be used to assesscompliance with prescribed medication. Contact the performing [facility] laboratoryto add-on definitive confirmatory testing if clinically indicated.Toxicology screening results are reported qualitatively. The concentration must???be greater than or equal to the cutoff to be reported as positive. The concentrationat which the screening test can detect an individual drug or metabolite varies.The absence of expected drug(s) and/or drug metabolite(s) may indicate non-compliance,inappropriate timing of specimen collection relative to drug administration, poor drugabsorption, diluted/adulterated urine, or limitations of testing. For medical purposesonly; not valid for forensic use.Interpretive questions should be directed to the laboratory medical directors. Result Comment: CUTO FF LEVEL: 25 NG/ML Cross-reactivity has been reported with dextromethorphan. Performed By: #### [place] RUG3 ####MIRANDA Sims ([id number])[facility] ([facility])[address] [place] [address] FL FLUORO IMAGES NO CHARGEon 11-01-2024 FL FLUORO IMAGES NO CHARGE These images are not reportable by radiology and will not be interpreted by Radiologists. Normal [facility] Lactateon 11-01-2024 Lactate [Moles/Vol] 1.2 mmol/L 0.4 - 2. 0 mmol/L [facility] Lactate [Moles/Vol] 1.2 mmol/L Normal 0.4-2.0 [facility] Comment on above: Order Comment: Venip uncture immediately after or during the administration of Metamizole may lead to falsely low results. Testing should be performed immediately prior to Metamizole dosing. Performed By: #### 2 524-7 ####MIRANDA Sims ([id number])[facility] ([facility])[address] [place] [address] Lactate [Moles/Vol]on 2024 Venipuncture immediately after or during the administration of Metamizole may lead to falsely low results. Testing should be performed immediately prior to Metamizole dosing. [facility] No Panel Informationon 11-01 Interpretation and review of laboratory results Normal [facility] CT CHEST/ABDOMEN/PELVIS: *No acute traumatic injury. CT THORACIC AND LUMBAR SPINE: *No acute fracture or traumatic malalignment. I personally reviewed the images/study and I agree with the findings as stated by resident Horacio Loera. This study was interpreted at [place], [place]. MACRO: None. Signed by: Julián Mendez 11/01/2024 1:14 AM Dictation workstation: [id number] [facility] Interpreted By: Julián Mendez and Ritchie Brandon STUDY: CT CHEST ABDOMEN PELVIS W IV CONTRAST; CT THORACIC SPINE RETROSPECTIVE RECONSTRUCTION PROTOCOL; CT LUMBAR SPINE RETROSPECTIVE RECONSTRUCTION PROTOCOL; 11/01/2024 12:31 am INDICATION: Signs/Symptoms:fall/s eizure. COMPARISON: Radiograph of the chest 10/31/2024. ACCESSION NUMBER(S): [id number]; [id number]; [id number] ORDERING CLINICIAN: EDNA CHOUDHARY TECHNIQUE: Contiguous axial CT images of the chest, abdomen, and pelvis were obtained after the intravenous administration of 100 mL Omnipaque 350 IV contrast. Coronal and sagittal reformatted images were reconstructed from the axial data. Multiplanar reformatted images of the thoracic and lumbar spine were reconstructed from source data of concurrent CT chest/abdomen/pelvis acquisition. FINDINGS: CT CHEST: MEDIASTINUM AND LYMPH NODES: The esophagus appears within normal limits. No enlarged intrathoracic or axillary lymph nodes by imaging criteria. No pneumomediastinum. VESSELS: Normal caliber thoracic aorta. No evidence of traumatic aortic injury. No significant aortic atherosclerosis. HEART: Normal size. No significant coronary artery calcifications. No significant pericardial effusion. LUNG, AIRWAYS, PLEURA: No pulmonary contusion, laceration, pleural effusion or pneumothorax. CHEST WALL SOFT TISSUES: No discernible acute abnormality. OSSEOUS STRUCTURES: No acute osseous abnormality. CT ABDOMEN/PELVIS: ABDOMINAL WALL: Small fat containing umbilical hernia. Fat containing right inguinal hernia. LIVER: Normal attenuation. No focal lesions. No traumatic abnormality. BILE DUCTS: No significant intrahepatic or extrahepatic dilatation. GALLBLADDER: No significant abnormality. PANCREAS: No significant abnormality. SPLEEN: No significant abnormality. ADRENALS: No significant abnormality. KIDNEYS, URETERS, BLADDER: No significant abnormality. REPRODUCTIVE ORGANS: No significant abnormality. VESSELS: No acute vascular injury. LYMPH NODES/RETROPERITONEUM : No acute retroperitoneal abnormality. No enlarged lymph nodes. BOWEL/MESENTERY/PERIT ONEUM: No bowel wall thickening or dilatation. Normal appendix. No ascites, free air or fluid collection. MUSCULOSKELETAL: Mild amount of degenerative/scleroti c changes involving the sacroiliac joints. No evidence of acute osseous abnormality. CT THORACIC SPINE: PARASPINAL SOFT TISSUES: No paravertebral fluid collection or significant edema. ALIGNMENT: No traumatic spondylolisthesis or traumatic facet widening. VERTEBRAE: No acute fracture. Vertebral body heights are maintained. SPINAL CANAL/INTERVERTEBRAL DISCS: No high-grade spinal canal stenosis. No significant disc height loss. CT LUMBAR SPINE: PARASPINAL SOFT TISSUES: No paravertebral fluid collection or significant edema. ALIGNMENT: No traumatic spondylolisthesis or traumatic facet widening. VERTEBRAE: No acute fracture. Vertebral body heights are maintained. SPINAL CANAL/INTERVERTEBRAL DISCS: No high-grade spinal canal stenosis. No significant disc height loss. NEURAL FORAMINA: No significant neural foraminal stenosis. [facility] Julián Mendez MD - 11/01/2024 Interpreted By: Julián Mendez and Ritchie Brandon STUDY: CT CHEST ABDOMEN PELVIS W IV CONTRAST; CT THORACIC SPINE RETROSPECTIVE RECONSTRUCTION PROTOCOL; CT LUMBAR SPINE RETROSPECTIVE RECONSTRUCTION PROTOCOL; 11/01/2024 12:31 am INDICATION: Signs/Symptoms:fall/s eizure. COMPARISON: Radiograph of the chest 10/31/2024. ACCESSION NUMBER(S): [id number]; [id number]; [id number] ORDERING CLINICIAN: EDNA CHOUDHARY TECHNIQUE: Contiguous axial CT images of the chest, abdomen, and pelvis were obtained after the intravenous administration of 100 mL Omnipaque 350 IV contrast. Coronal and sagittal reformatted images were reconstructed from the axial data. Multiplanar reformatted images of the thoracic and lumbar spine were reconstructed from source data of concurrent CT chest/abdomen/pelvis acquisition. FINDINGS: CT CHEST: MEDIASTINUM AND LYMPH NODES: The esophagus appears within normal limits. No enlarged intrathoracic or axillary lymph nodes by imaging criteria. No pneumomediastinum. VESSELS: Normal caliber thoracic aorta. No evidence of traumatic aortic injury. No significant aortic atherosclerosis. HEART: Normal size. No significant coronary artery calcifications. No significant pericardial effusion. LUNG, AIRWAYS, PLEURA: No pulmonary contusion, laceration, pleural effusion or pneumothorax. CHEST WALL SOFT TISSUES: No discernible acute abnormality. OSSEOUS STRUCTURES: No acute osseous abnormality. CT ABDOMEN/PELVIS: ABDOMINAL WALL: Small fat containing umbilical hernia. Fat containing right inguinal hernia. LIVER: Normal attenuation. No focal lesions. No traumatic abnormality. BILE DUCTS: No significant intrahepatic or extrahepatic dilatation. GALLBLADDER: No significant abnormality. PANCREAS: No significant abnormality. SPLEEN: No significant abnormality. ADRENALS: No significant abnormality. KIDNEYS, URETERS, BLADDER: No significant abnormality. REPRODUCTIVE ORGANS: No significant abnormality. VESSELS: No acute vascular injury. LYMPH NODES/RETROPERITONEUM : No acute retroperitoneal abnormality. No enlarged lymph nodes. BOWEL/MESENTERY/PERIT ONEUM: No bowel wall thickening or dilatation. Normal appendix. No ascites, free air or fluid collection. MUSCULOSKELETAL: Mild amount of degenerative/scleroti c changes involving the sacroiliac joints. No evidence of acute osseous abnormality. CT THORACIC SPINE: PARASPINAL SOFT TISSUES: No paravertebral fluid collection or significant edema. ALIGNMENT: No traumatic spondylolisthesis or traumatic facet widening. VERTEBRAE: No acute fracture. Vertebral body heights are maintained. SPINAL CANAL/INTERVERTEBRAL DISCS: No high-grade spinal canal stenosis. No significant disc height loss. CT LUMBAR SPINE: PARASPINAL SOFT TISSUES: No paravertebral fluid collection or significant edema. ALIGNMENT: No traumatic spondylolisthesis or traumatic facet widening. VERTEBRAE: No acute fracture. Vertebral body heights are maintained. SPINAL CANAL/INTERVERTEBRAL DISCS: No high-grade spinal canal stenosis. No significant disc height loss. NEURAL FORAMINA: No significant neural foraminal stenosis. IMPRESSION: CT CHEST/ABDOMEN/PELVIS: *No acute traumatic injury. CT THORACIC AND LUMBAR SPINE: *No acute fracture or traumatic malalignment. I personally reviewed the images/study and I agree with the findings as stated by resident Horacio Loera. This study was interpreted at [place], [place]. MACRO: None. Signed by: Julián Mendez 11/01/2024 1:14 AM Dictation workstation: [id number] [facility] Work Phone: [facility] Work Phone: Radiology Study observation (narrative) [facility] Work Phone: Renal function 2000 panelon 11-01-2024 Albumin BCP dye [Mass/Vol] 4.4 g/dL 3.4 - 5.0 g/dL [facility] Anion gap [Moles/Vol] 12 mmol/L 10 - 20 mmol/L [facility] Calcium [Mass/Vol] 9.2 mg/dL 8.6 - 10. 6 mg/dL [facility] Chloride [Moles/Vol] 102 mmol/L 98 - 10 7 mmol/L [facility] CO2 [Moles/Vol] 28 mmol/L 21 - 32 mmol/L [facility] Creatinine [Mass/Vol] 0.9 mg/dL 0.50 - 1.30 mg/dL [facility] eGFR - PINF [facility] Comment on above: Calculations of davey mated GFR are performed using the 2020 CKD-EPI Study Refit equation without the race variable for the IDMS-Traceable creatinine methods. https://jasn.asnjournals.org/content//ASN.66295 84894 Glucose [Mass/Vol] 102 mg/dL High 74 - 99 mg/dL [facility] Interpretation and review of laboratory results Abnormal [facility] Phosphate [Mass/Vol] 3.5 mg/dL 2.5 - 4 .9 mg/dL [facility] Potassium [Moles/Vol] 4.5 mmol/L 3.5 - 5.3 mmol/L [facility] Sodium [Moles/Vol] 137 mmol/L 136 - 145 mmol/L [facility] Urea nitrogen [Mass/Vol] 13 mg/dL 6 - 23 mg/dL [facility] Albumin BCP dye [Mass/Vol] 4.4 g/dL Normal 3.4-5.0 [facility] Comment on above: Performed By: #### 2 4362-6 ####MIRANDA Sims ([id number])[facility] ([facility])[address] [place] [address] Anion gap [Moles/Vol] 12 mmol/L Normal 10-20 [facility] Comment on above: Performed By: #### 2 4362-6 ####MIRANDA GONZALEZ L ([id number])[facility] ([facility])[address] [place] [address] Calcium [Mass/Vol] 9.2 mg/dL Normal 8.6-10.6 [facility] Comment on above: Performed By: #### 2 4362-6 ####MIRANDA Sims ([id number])[facility] ([facility])[address] [place] [address] Chloride [Moles/Vol] 102 mmol/L Normal 98-107 [facility] Comment on above: Performed By: #### 2 4362-6 ####MIRANDA GONZALEZ L ([id number])[facility] ([facility])[address] [place] [address] CO2 [Moles/Vol] 28 mmol/L Normal 21-32 [facility] Comment on above: Performed By: #### 2 4362-6 ####MIRANDA GONZALEZ L ([id number])[facility] ([facility])[address] [place] [address] Creatinine [Mass/Vol] 0.90 mg/dL Normal 0.50-1.30 [facility] Comment on above: Performed By: #### 2 4362-6 ####MIRANDA GONZALEZ L ([id number])[facility] ([facility])[address] [place] [address] GFR/1.73 sq M.predicted MDRD (S/P/Bld) [Vol rate/Area] mL/min/{1.73_m2} Normal >60 [facility] Comment on above: Result Comment: Calc ulations of estimated GFR are performed using the 2020 CKD-EPI Study Refit equation without the race variable for the IDMS-Traceable creatinine methods. https://jasn.asnjournals.org/content//ASN.30353 05683 Performed By: #### 2 4362-6 ####MIRANDA Sims ([id number])[facility] ([facility])[address] [facility] [place] [place] [address] Glucose [Mass/Vol] 102 mg/dL High 74-99 [facility] Comment on above: Performed By: #### 2 4362-6 ####MIRANDA Sims ([id number])[facility] ([facility])[address] [place] [address] Phosphate [Mass/Vol] 3.5 mg/dL Normal 2.5-4.9 [facility] Comment on above: Performed By: #### 2 4362-6 ####MIRANDA Sims ([id number])[facility] ([facility])[address] [place] [address] Potassium [Moles/Vol] 4.5 mmol/L Normal 3.5-5.3 [facility] Comment on above: Performed By: #### 2 4362-6 ####MIRANDA GONZALEZ L ([id number])[facility] ([facility])[address] [place] [address] Sodium [Moles/Vol] 137 mmol/L Normal 136-145 [facility] Comment on above: Performed By: #### 2 4362-6 ####MIRANDA GONZALEZ L ([id number])[facility] ([facility])[address] [facility] [place] [address] Urea nitrogen [Mass/Vol] 13 mg/dL Normal 6-23 [facility] Comment on above: Performed By: #### 2 4362-6 ####MIRANDA STEVEMOTZBETTYE L ([id number])[facility] ([facility])[address] [facility] [place] [address] XR tomography Unspecified vanessa dy regionon 11-01-2024 These images are not reportable by radiology and will not be interpreted by Radiologists. IMAGING Blood type and Indirect anti body screen panel (Bld)on 10-31-2024 ABO group Nom (Bld) A Normal [facility] Comment on above: Performed By: #### 3 4532-2 ####MIRANDA Sims ([id number])[facility] ([facility])[address] [place] [address] Blood group antibody screen Ql Negative Normal [facility] Comment on above: Performed By: #### 3 4532-2 ####MIRANDA Sims ([id number])[facility] ([facility] [place] [address] D Ag Ql (Bld) Positive [facility] Comment on above: Performed By: #### 3 4532-2 ####MIRANDA Sims ([id number])[facility] ([facility])[address] [place] [address] CBC W Auto Differential pane l (Bld)on 10-31-2024 Basophils (Bld) [#/Vol] 0.07 10*3/uL [facility] Basophils/100 WBC (Bld) 0.5 % 0.0 - 2.0 % [facility] Eosinophils (Bld) [#/Vol] 0.09 10*3/uL [facility] Eosinophils/100 WBC (Bld) 0.7 % 0.0 - 6.0 % [facility] Erythrocyte distribution width (RBC) [Ratio] 12 % 11.5 - 14.5 % [facility] Hematocrit (Bld) [Volume fraction] 45.9 % 41.0 - 52.0 % [facility] Hemoglobin (Bld) [Mass/Vol] 16.3 g/dL 13.5 - 17.5 g/dL [facility] Immature granulocytes (Bld) [#/Vol] 0.09 10*3/uL [facility] Immature granulocytes/100 WBC (Bld) 0.7 % 0.0 - 0.9 % [facility] Comment on above: Immature Granulocyte Count (IG) includes promyelocytes, myelocytes and metamyelocytes but does not include bands. Percent differential counts (%) should be interpreted in the context of the absolute cell counts (cells/UL). Interpretation and review of laboratory results Abnormal [facility] Lymphocytes (Bld) [#/Vol] 2.28 10*3/uL [facility] Lymphocytes/100 WBC (Bld) 16.5 % 13.0 - 44.0 % [facility] MCH (RBC) [Entitic mass] 30.2 pg 26.0 - 34.0 pg [facility] MCHC (RBC) [Mass/Vol] 35.5 g/dL 32.0 - 36.0 g/dL [facility] MCV (RBC) [Entitic vol] 85 fL 80 - 100 fL [facility] Monocytes (Bld) [#/Vol] 0.96 10*3/uL [facility] Monocytes/100 WBC (Bld) 7 % 2.0 - 10.0 % [facility] Neutrophils (Bld) [#/Vol] 10.32 10*3/uL High [facility] Comment on above: Percent differential counts (%) should be interpreted in the context of the absolute cell counts (cells/uL). Neutrophils/100 WBC (Bld) 74.6 % 40.0 - 80.0 % [facility] Nucleated RBC/100 WBC (Bld) [Ratio] 0 % [facility] Platelets (Bld) [#/Vol] 230 10*3/uL [facility] RBC (Bld) [#/Vol] 5.4 10*6/uL [facility] WBC (Bld) [#/Vol] 13.8 10*3/uL [facility] Basophils (Bld) [#/Vol] 0.07 x10*3/uL Normal 0.00-0.10 [facility] Comment on above: Performed By: #### 5 7021-8 #### MIRANDA Sims ([id number]) [facility] ([facility]) [address] [place] [address] Basophils/100 WBC (Bld) 0.5 % Normal 0.0-2.0 [facility] Comment on above: Performed By: #### 5 7021-8 #### MIRANDA Sims ([id number]) [facility] ([facility]) [address] [place] [address] Eosinophils (Bld) [#/Vol] 0.09 x10*3/uL Normal 0.00-0.70 [facility] Comment on above: Performed By: #### 5 7021-8 #### MIRANDA Sims ([id number]) [facility] ([facility]) [address] [place] [address] Eosinophils/100 WBC (Bld) 0.7 % Normal 0.0-6.0 [facility] Comment on above: Performed By: #### 5 7021-8 #### MIRANDA Sims ([id number]) [facility] ([facility]) [address] [place] [address] Erythrocyte distribution width (RBC) [Ratio] 12.0 % Normal 11.5-14.5 [facility] Comment on above: Performed By: #### 5 7021-8 #### MIRANDA Sims ([id number]) [facility] ([facility]) [address] [place] [address] Hematocrit (Bld) [Volume fraction] 45.9 % Normal 41.0-52.0 [facility] Comment on above: Performed By: #### 5 7021-8 #### MIRANDA Sims ([id number]) [facility] ([facility]) [address] [place] [address] Hemoglobin (Bld) [Mass/Vol] 16.3 g/dL Normal 13.5-17.5 [facility] Comment on above: Performed By: #### 5 7021-8 #### MIRANDA Sims ([id number]) [facility] ([facility]) [address] [place] [address] Immature granulocytes (Bld) [#/Vol] 0.09 x10*3/uL Normal 0.00-0.70 [facility] Comment on above: Performed By: #### 5 7021-8 #### MIRANDA Sims ([id number]) [facility] ([facility]) [id number] [place] [address] Immature granulocytes/100 WBC (Bld) 0.7 % Normal 0.0-0.9 [facility] Comment on above: Result Comment: Zora ture Granulocyte Count (IG) includes promyelocytes, myelocytes and metamyelocytes but does not include bands. Percent differential counts (%) should be interpreted in the context of the absolute cell counts (cells/UL). Performed By: #### 5 7021-8 #### MIRANDA Sims ([id number]) [facility] ([facility]) [address] [place] [address] Lymphocytes (Bld) [#/Vol] 2.28 x10*3/uL Normal 1.20-4.80 [facility] Comment on above: Performed By: #### 5 7021-8 #### MIRANDA Sims ([id number]) [facility] ([facility]) [address] [place] [address] Lymphocytes/100 WBC (Bld) 16.5 % Normal 13.0-44.0 [facility] Comment on above: Performed By: #### 5 7021-8 #### MIRANDA Sims ([id number]) [facility] ([facility]) [address] [place] [address] MCH (RBC) [Entitic mass] 30.2 pg Normal 26.0-34.0 [facility] Comment on above: Performed By: #### 5 7021-8 #### MIRANDA Sims ([id number]) [facility] ([facility]) [address] [place] [address] MCHC (RBC) [Mass/Vol] 35.5 g/dL Normal 32.0-36.0 [facility] Comment on above: Performed By: #### 5 7021-8 #### MIRANDA Sims ([id number]) [facility] ([facility]) [address] [place] [address] 28818 MCV (RBC) [Entitic vol] 85 fL Normal 80-100 [facility] Comment on above: Performed By: #### 5 7021-8 #### MIRANDA Sims ([id number]) [facility] ([facility]) [address] [place] [address] Monocytes (Bld) [#/Vol] 0.96 x10*3/uL Normal 0.10-1.00 [facility] Comment on above: Performed By: #### 5 7021-8 #### MIRANDA Sims ([id number]) [facility] ([facility]) [address] [place] [address] 21752 Monocytes/100 WBC (Bld) 7.0 % Normal 2.0-10.0 [facility] Comment on above: Performed By: #### 5 7021-8 #### MIRANDA Sims ([id number]) [facility] ([facility]) [address] [place] [address] Neutrophils (Bld) [#/Vol] 10.32 x10*3/uL High 1.20-7.70 [facility] Comment on above: Result Comment: Perc ent differential counts (%) should be interpreted in the context of the absolute cell counts (cells/uL). Performed By: #### 5 7021-8 #### MIRANDA Sims ([id number]) [facility] ([facility]) [address] [place] [address] 25961 Neutrophils/100 WBC (Bld) 74.6 % Normal 40.0-80.0 [facility] Comment on above: Performed By: #### 5 7021-8 #### MIRANDA Sims ([id number]) [facility] ([facility]) [address] [place] [address] 18541 Nucleated RBC/100 WBC (Bld) [Ratio] 0.0 /100 WBCs Normal 0.0-0.0 [facility] Comment on above: Performed By: #### 5 7021-8 #### MIRANDA Sims ([id number]) [facility] ([facility]) [address] [place] [address] Platelets (Bld) [#/Vol] 230 x10*3/uL Normal 150-450 [facility] Comment on above: Performed By: #### 5 7021-8 #### MIRANDA KYAWTZER L ([id number]) [facility] ([facility]) [address] [place] [address] RBC (Bld) [#/Vol] 5.40 x10*6/uL Normal 4.50-5.90 [facility] Comment on above: Performed By: #### 5 7021-8 #### MIRANDA SCHMOTZER L ([id number]) [facility] ([facility]) [address] [place] [address] WBC (Bld) [#/Vol] 13.8 x10*3/uL High 4.4-11.3 [facility] Comment on above: Performed By: #### 5 7021-8 #### MIRANDA EVIMOTZER L ([id number]) [facility] ([facility]) [address] [place] [address] CT ANKLE RIGHT WO IV CONTRAS Ton 10-31-2024 CT ANKLE RIGHT WO IV CONTRAST Interpreted By: Julián Mendez and Ritchie Brandon STUDY: CT of right foot without contrast. INDICATION: Signs/Symptoms:ankle fx COMPARISON: Radiographs of the ankle 10/31/2024. ACCESSION NUMBER(S): [id number] ORDERING CLINICIAN: NOAH COLVIN TECHNIQUE: Contiguous axial CT images were obtained at 2 mm slice thickness of the right ankle without contrast. Coronal and sagittal reconstructions were performed. FINDINGS: Bones and joints: Redemonstration of acute comminuted fracture of the distal fibular diaphysis with minimal posterior displacement of the distal fracture fragment of 0.3 cm. There is no evidence of intra-articular extension/propagation of the fracture line into the ankle mortise. No definite widening of the syndesmosis. There is an acute avulsion fracture visualized of the tip of the distal medial malleolus (series 205, image 38). There appears to be mild amount of widening of the medial clear space in regards to the measurement interval between the lateral border of the medial malleolus in the medial side of the talus which measures up to 0.7 cm. Osseous structures of the hindfoot and forefoot are within normal limits. Midfoot joints including talonavicular, naviculocuneiform, calcaneocuboid joints are within normal limits. Soft tissues: There is a small tibiotalar joint effusion with soft tissue hematoma/stranding adjacent to the distal tibial avulsion fracture and the spiral fracture of the fibula. IMPRESSION: 1. Acute comminuted fracture of the distal fibular diaphysis with minimal posterior displacement of the distal fracture fragment as above without evidence syndesmotic widening. 2. Acute avulsion fracture of the distal tip of the medial malleolus. 3. Small tibiotalar joint effusion with suggestion of 7 mm of widening of the medial clear space, a component of which could be positional, however, a deltoid ligament injury is not excluded. I personally reviewed the images/study and I agree with the findings as stated by resident Horacoi Loera. This study was interpreted at [place], [place]. MACRO: None Signed by: Julián Mendez 10/31/2024 11:31 PM Dictation workstation: [id number] Normal [facility] CT Ankle - right WO contrast on 10-31-2024 1. Acute comminuted fracture of the distal fibular diaphysis with minimal posterior displacement of the distal fracture fragment as above without evidence syndesmotic widening. 2. Acute avulsion fracture of the distal tip of the medial malleolus. 3. Small tibiotalar joint effusion with suggestion of 7 mm of widening of the medial clear space, a component of which could be positional, however, a deltoid ligament injury is not excluded. I personally reviewed the images/study and I agree with the findings as stated by resident Horacio Loera. This study was interpreted at [place], [place]. MACRO: None Signed by: Julián Mendez 10/31/2024 11:31 PM Dictation workstation: [id number] [facility] Interpreted By: Julián Mendez and Ritchie Brandon STUDY: CT of right foot without contrast. INDICATION: Signs/Symptoms:ankle fx COMPARISON: Radiographs of the ankle 10/31/2024. ACCESSION NUMBER(S): [id number] ORDERING CLINICIAN: NAOH COLVIN TECHNIQUE: Contiguous axial CT images were obtained at 2 mm slice thickness of the right ankle without contrast. Coronal and sagittal reconstructions were performed. FINDINGS: Bones and joints: Redemonstration of acute comminuted fracture of the distal fibular diaphysis with minimal posterior displacement of the distal fracture fragment of 0.3 cm. There is no evidence of intra-articular extension/propagation of the fracture line into the ankle mortise. No definite widening of the syndesmosis. There is an acute avulsion fracture visualized of the tip of the distal medial malleolus (series 205, image 38). There appears to be mild amount of widening of the medial clear space in regards to the measurement interval between the lateral border of the medial malleolus in the medial side of the talus which measures up to 0.7 cm. Osseous structures of the hindfoot and forefoot are within normal limits. Midfoot joints including talonavicular, naviculocuneiform, calcaneocuboid joints are within normal limits. Soft tissues: There is a small tibiotalar joint effusion with soft tissue hematoma/stranding adjacent to the distal tibial avulsion fracture and the spiral fracture of the fibula. [facility] Julián Mendez MD - 10/31/2024 Interpreted By: Julián Mendez and Ritchie Brandon STUDY: CT of right foot without contrast. INDICATION: Signs/Symptoms:ankle fx COMPARISON: Radiographs of the ankle 10/31/2024. ACCESSION NUMBER(S): [id number] ORDERING CLINICIAN: NOAH COLVIN TECHNIQUE: Contiguous axial CT images were obtained at 2 mm slice thickness of the right ankle without contrast. Coronal and sagittal reconstructions were performed. FINDINGS: Bones and joints: Redemonstration of acute comminuted fracture of the distal fibular diaphysis with minimal posterior displacement of the distal fracture fragment of 0.3 cm. There is no evidence of intra-articular extension/propagation of the fracture line into the ankle mortise. No definite widening of the syndesmosis. There is an acute avulsion fracture visualized of the tip of the distal medial malleolus (series 205, image 38). There appears to be mild amount of widening of the medial clear space in regards to the measurement interval between the lateral border of the medial malleolus in the medial side of the talus which measures up to 0.7 cm. Osseous structures of the hindfoot and forefoot are within normal limits. Midfoot joints including talonavicular, naviculocuneiform, calcaneocuboid joints are within normal limits. Soft tissues: There is a small tibiotalar joint effusion with soft tissue hematoma/stranding adjacent to the distal tibial avulsion fracture and the spiral fracture of the fibula. IMPRESSION: 1. Acute comminuted fracture of the distal fibular diaphysis with minimal posterior displacement of the distal fracture fragment as above without evidence syndesmotic widening. 2. Acute avulsion fracture of the distal tip of the medial malleolus. 3. Small tibiotalar joint effusion with suggestion of 7 mm of widening of the medial clear space, a component of which could be positional, however, a deltoid ligament injury is not excluded. I personally reviewed the images/study and I agree with the findings as stated by resident Horacio Loera. This study was interpreted at [place], [place]. MACRO: None Signed by: Julián Mendez 10/31/2024 11:31 PM Dictation workstation: [id number] [facility] Work Phone: [facility] Work Phone: CT CERVICAL SPINE WO IV CONT [facility] 10-31-2024 CT CERVICAL SPINE WO IV CONTRAST Interpreted By: Julián Mendez and Hofer Lindsay STUDY: CT CERVICAL SPINE WO IV CONTRAST; 11/01/2024 12:31 am INDICATION: Signs/Symptoms:fall/s eizure. COMPARISON: None. ACCESSION NUMBER(S): [id number] ORDERING CLINICIAN: EDNA CHOUDHARY TECHNIQUE: Axial noncontrast images of the cervical spine with coronal and sagittal reconstructed images. FINDINGS: PREVERTEBRAL SOFT TISSUES: Within normal limits. CRANIOCERVICAL JUNCTION: Intact. ALIGNMENT: Straightening of the normal cervical lordosis, which may be positional or related to spasm. VERTEBRAE: No acute fracture. Vertebral body heights are maintained. SPINAL CANAL/INTERVERTEBRAL DISCS: No high-grade spinal canal stenosis. No significant disc height loss. NEURAL FORAMINA: No significant neural foraminal stenosis. OTHER: The visualized upper lung collier are clear. IMPRESSION: 1. No acute fracture or traumatic malalignment of the cervical spine. I personally reviewed the images/study and resident's interpretation and I agree with the findings as stated by Anisa Mena MD (resident radiologist). This study was analyzed and interpreted at [facility], [place], [place]. MACRO: None. Signed by: Julián Mendez 11/01/2024 1:04 AM Dictation workstation: [id number] Normal [facility] CT CHEST ABDOMEN PELVIS W IV CONTRASTon 10-31-2024 CT CHEST ABDOMEN PELVIS W IV CONTRAST Interpreted By: Julián Mendez, and Evaristo Leonard STUDY: CT CHEST ABDOMEN PELVIS W IV CONTRAST; CT THORACIC SPINE RETROSPECTIVE RECONSTRUCTION PROTOCOL; CT LUMBAR SPINE RETROSPECTIVE RECONSTRUCTION PROTOCOL; 11/01/2024 12:31 am INDICATION: Signs/Symptoms:fall/s eizure. COMPARISON: Radiograph of the chest 10/31/2024. ACCESSION NUMBER(S): [id number]; [id number]; [id number] ORDERING CLINICIAN: EDNA CHOUDHARY TECHNIQUE: Contiguous axial CT images of the chest, abdomen, and pelvis were obtained after the intravenous administration of 100 mL Omnipaque 350 IV contrast. Coronal and sagittal reformatted images were reconstructed from the axial data. Multiplanar reformatted images of the thoracic and lumbar spine were reconstructed from source data of concurrent CT chest/abdomen/pelvis acquisition. FINDINGS: CT CHEST: MEDIASTINUM AND LYMPH NODES: The esophagus appears within normal limits. No enlarged intrathoracic or axillary lymph nodes by imaging criteria. No pneumomediastinum. VESSELS: Normal caliber thoracic aorta. No evidence of traumatic aortic injury. No significant aortic atherosclerosis. HEART: Normal size. No significant coronary artery calcifications. No significant pericardial effusion. LUNG, AIRWAYS, PLEURA: No pulmonary contusion, laceration, pleural effusion or pneumothorax. CHEST WALL SOFT TISSUES: No discernible acute abnormality. OSSEOUS STRUCTURES: No acute osseous abnormality. CT ABDOMEN/PELVIS: ABDOMINAL WALL: Small fat containing umbilical hernia. Fat containing right inguinal hernia. LIVER: Normal attenuation. No focal lesions. No traumatic abnormality. BILE DUCTS: No significant intrahepatic or extrahepatic dilatation. GALLBLADDER: No significant abnormality. PANCREAS: No significant abnormality. SPLEEN: No significant abnormality. ADRENALS: No significant abnormality. KIDNEYS, URETERS, BLADDER: No significant abnormality. REPRODUCTIVE ORGANS: No significant abnormality. VESSELS: No acute vascular injury. LYMPH NODES/RETROPERITONEUM : No acute retroperitoneal abnormality. No enlarged lymph nodes. BOWEL/MESENTERY/PERIT ONEUM: No bowel wall thickening or dilatation. Normal appendix. No ascites, free air or fluid collection. MUSCULOSKELETAL: Mild amount of degenerative/scleroti c changes involving the sacroiliac joints. No evidence of acute osseous abnormality. CT THORACIC SPINE: PARASPINAL SOFT TISSUES: No paravertebral fluid collection or significant edema. ALIGNMENT: No traumatic spondylolisthesis or traumatic facet widening. VERTEBRAE: No acute fracture. Vertebral body heights are maintained. SPINAL CANAL/INTERVERTEBRAL DISCS: No high-grade spinal canal stenosis. No significant disc height loss. CT LUMBAR SPINE: PARASPINAL SOFT TISSUES: No paravertebral fluid collection or significant edema. ALIGNMENT: No traumatic spondylolisthesis or traumatic facet widening. VERTEBRAE: No acute fracture. Vertebral body heights are maintained. SPINAL CANAL/INTERVERTEBRAL DISCS: No high-grade spinal canal stenosis. No significant disc height loss. NEURAL FORAMINA: No significant neural foraminal stenosis. IMPRESSION: CT CHEST/ABDOMEN/PELVIS: *No acute traumatic injury. CT THORACIC AND LUMBAR SPINE: *No acute fracture or traumatic malalignment. I personally reviewed the images/study and I agree with the findings as stated by resident Horacio Loera. This study was interpreted at [place], [place]. MACRO: None. Signed by: Julián Mendez 11/01/2024 1:14 AM Dictation workstation: [id number] Normal [facility] CT HEAD WO IV CONTRASTon CT HEAD WO IV CONTRAST Interpreted By: Julián Mendez and Ritchie Brandon STUDY: CT HEAD WO IV CONTRAST; 10/31/2024 9:49 pm INDICATION: Signs/Symptoms:mult falls, LOC vs seizure COMPARISON: None. ACCESSION NUMBER(S): [id number] ORDERING CLINICIAN: NOAH COLVIN TECHNIQUE: Axial noncontrast CT images of head with coronal and sagittal reconstructed images. FINDINGS: CT HEAD: BRAIN PARENCHYMA: No acute intraparenchymal hemorrhage or parenchymal evidence of acute large territory ischemic infarct. No mass-effect. Loomis-white matter distinction is preserved. VENTRICLES and EXTRA-AXIAL SPACES: No acute extra-axial or intraventricular hemorrhage. No effacement of cerebral sulci. Ventricles and sulci are age-concordant. PARANASAL SINUSES/MASTOIDS: No hemorrhage or air-fluid levels within the visualized paranasal sinuses. The mastoids are well aerated. CALVARIUM/ORBITS: No skull fracture. The orbits and globes are intact to the extent visualized. EXTRACRANIAL SOFT TISSUES: No discernible hematoma. IMPRESSION: CT HEAD: *No acute intracranial abnormality or calvarial fracture. I personally reviewed the images/study and I agree with the findings as stated by resident Horacio Loera. This study was interpreted at [place], [place]. MACRO: None. Signed by: Julián Mendez 10/31/2024 10:31 PM Dictation workstation: [id number] Normal [facility] CT Head WO contraston 2024 CT HEAD: *No acute intracranial abnormality or calvarial fracture. I personally reviewed the images/study and I agree with the findings as stated by resident Horacio Loera. This study was interpreted at [place], [place]. MACRO: None. Signed by: Julián Mendez 10/31/2024 10:31 PM Dictation workstation: [id number] [facility] Interpreted By: Julián Mendez and Ritchie Brandon STUDY: CT HEAD WO IV CONTRAST; 10/31/2024 9:49 pm INDICATION: Signs/Symptoms:mult falls, LOC vs seizure COMPARISON: None. ACCESSION NUMBER(S): [id number] ORDERING CLINICIAN: NOAH COLVIN TECHNIQUE: Axial noncontrast CT images of head with coronal and sagittal reconstructed images. FINDINGS: CT HEAD: BRAIN PARENCHYMA: No acute intraparenchymal hemorrhage or parenchymal evidence of acute large territory ischemic infarct. No mass-effect. Loomis-white matter distinction is preserved. VENTRICLES and EXTRA-AXIAL SPACES: No acute extra-axial or intraventricular hemorrhage. No effacement of cerebral sulci. Ventricles and sulci are age-concordant. PARANASAL SINUSES/MASTOIDS: No hemorrhage or air-fluid levels within the visualized paranasal sinuses. The mastoids are well aerated. CALVARIUM/ORBITS: No skull fracture. The orbits and globes are intact to the extent visualized. EXTRACRANIAL SOFT TISSUES: No discernible hematoma. [facility] Julián Mendez MD - 10/31/2024 Interpreted By: Julián Mendez and Ritchie Brandon STUDY: CT HEAD WO IV CONTRAST; 10/31/2024 9:49 pm INDICATION: Signs/Symptoms:mult falls, LOC vs seizure COMPARISON: None. ACCESSION NUMBER(S): [id number] ORDERING CLINICIAN: NOAH COLVIN TECHNIQUE: Axial noncontrast CT images of head with coronal and sagittal reconstructed images. FINDINGS: CT HEAD: BRAIN PARENCHYMA: No acute intraparenchymal hemorrhage or parenchymal evidence of acute large territory ischemic infarct. No mass-effect. Loomis-white matter distinction is preserved. VENTRICLES and EXTRA-AXIAL SPACES: No acute extra-axial or intraventricular hemorrhage. No effacement of cerebral sulci. Ventricles and sulci are age-concordant. PARANASAL SINUSES/MASTOIDS: No hemorrhage or air-fluid levels within the visualized paranasal sinuses. The mastoids are well aerated. CALVARIUM/ORBITS: No skull fracture. The orbits and globes are intact to the extent visualized. EXTRACRANIAL SOFT TISSUES: No discernible hematoma. IMPRESSION: CT HEAD: *No acute intracranial abnormality or calvarial fracture. I personally reviewed the images/study and I agree with the findings as stated by resident Horacio Loera. This study was interpreted at [place], [place]. MACRO: None. Signed by: Julián Mendez 10/31/2024 10:31 PM Dictation workstation: [id number] [facility] Work Phone: [facility] Work Phone: CT LUMBAR SPINE RETROSPECTIV E RECONSTRUCTION PROTOCOLon 10-31-2024 CT LUMBAR SPINE RETROSPECTIVE RECONSTRUCTION PROTOCOL Interpreted By: Julián Mendez and Ritchie Brandon STUDY: CT CHEST ABDOMEN PELVIS W IV CONTRAST; CT THORACIC SPINE RETROSPECTIVE RECONSTRUCTION PROTOCOL; CT LUMBAR SPINE RETROSPECTIVE RECONSTRUCTION PROTOCOL; 11/01/2024 12:31 am INDICATION: Signs/Symptoms:fall/s eizure. COMPARISON: Radiograph of the chest 10/31/2024. ACCESSION NUMBER(S): [id number]; [id number]; [id number] ORDERING CLINICIAN: EDNA CHOUDHARY TECHNIQUE: Contiguous axial CT images of the chest, abdomen, and pelvis were obtained after the intravenous administration of 100 mL Omnipaque 350 IV contrast. Coronal and sagittal reformatted images were reconstructed from the axial data. Multiplanar reformatted images of the thoracic and lumbar spine were reconstructed from source data of concurrent CT chest/abdomen/pelvis acquisition. FINDINGS: CT CHEST: MEDIASTINUM AND LYMPH NODES: The esophagus appears within normal limits. No enlarged intrathoracic or axillary lymph nodes by imaging criteria. No pneumomediastinum. VESSELS: Normal caliber thoracic aorta. No evidence of traumatic aortic injury. No significant aortic atherosclerosis. HEART: Normal size. No significant coronary artery calcifications. No significant pericardial effusion. LUNG, AIRWAYS, PLEURA: No pulmonary contusion, laceration, pleural effusion or pneumothorax. CHEST WALL SOFT TISSUES: No discernible acute abnormality. OSSEOUS STRUCTURES: No acute osseous abnormality. CT ABDOMEN/PELVIS: ABDOMINAL WALL: Small fat containing umbilical hernia. Fat containing right inguinal hernia. LIVER: Normal attenuation. No focal lesions. No traumatic abnormality. BILE DUCTS: No significant intrahepatic or extrahepatic dilatation. GALLBLADDER: No significant abnormality. PANCREAS: No significant abnormality. SPLEEN: No significant abnormality. ADRENALS: No significant abnormality. KIDNEYS, URETERS, BLADDER: No significant abnormality. REPRODUCTIVE ORGANS: No significant abnormality. VESSELS: No acute vascular injury. LYMPH NODES/RETROPERITONEUM : No acute retroperitoneal abnormality. No enlarged lymph nodes. BOWEL/MESENTERY/PERIT ONEUM: No bowel wall thickening or dilatation. Normal appendix. No ascites, free air or fluid collection. MUSCULOSKELETAL: Mild amount of degenerative/scleroti c changes involving the sacroiliac joints. No evidence of acute osseous abnormality. CT THORACIC SPINE: PARASPINAL SOFT TISSUES: No paravertebral fluid collection or significant edema. ALIGNMENT: No traumatic spondylolisthesis or traumatic facet widening. VERTEBRAE: No acute fracture. Vertebral body heights are maintained. SPINAL CANAL/INTERVERTEBRAL DISCS: No high-grade spinal canal stenosis. No significant disc height loss. CT LUMBAR SPINE: PARASPINAL SOFT TISSUES: No paravertebral fluid collection or significant edema. ALIGNMENT: No traumatic spondylolisthesis or traumatic facet widening. VERTEBRAE: No acute fracture. Vertebral body heights are maintained. SPINAL CANAL/INTERVERTEBRAL DISCS: No high-grade spinal canal stenosis. No significant disc height loss. NEURAL FORAMINA: No significant neural foraminal stenosis. IMPRESSION: CT CHEST/ABDOMEN/PELVIS: *No acute traumatic injury. CT THORACIC AND LUMBAR SPINE: *No acute fracture or traumatic malalignment. I personally reviewed the images/study and I agree with the findings as stated by resident Horacio Loera. This study was interpreted at [facility], [place], [place]. MACRO: None. Signed by: Julián Mendez 11/01/2024 1:14 AM Dictation workstation: [id number] Normal [facility] CT THORACIC SPINE RETROSPECT IVONE RECONSTRUCTION PROTOCOLon 10-31-2024 CT THORACIC SPINE RETROSPECTIVE RECONSTRUCTION PROTOCOL Interpreted By: Julián Mendez and Evaristo Leonard STUDY: CT CHEST ABDOMEN PELVIS W IV CONTRAST; CT THORACIC SPINE RETROSPECTIVE RECONSTRUCTION PROTOCOL; CT LUMBAR SPINE RETROSPECTIVE RECONSTRUCTION PROTOCOL; 11/01/2024 12:31 am INDICATION: Signs/Symptoms:fall/s eizure. COMPARISON: Radiograph of the chest 10/31/2024. ACCESSION NUMBER(S): [id number]; [id number]; [id number] ORDERING CLINICIAN: EDNA CHOUDHARY TECHNIQUE: Contiguous axial CT images of the chest, abdomen, and pelvis were obtained after the intravenous administration of 100 mL Omnipaque 350 IV contrast. Coronal and sagittal reformatted images were reconstructed from the axial data. Multiplanar reformatted images of the thoracic and lumbar spine were reconstructed from source data of concurrent CT chest/abdomen/pelvis acquisition. FINDINGS: CT CHEST: MEDIASTINUM AND LYMPH NODES: The esophagus appears within normal limits. No enlarged intrathoracic or axillary lymph nodes by imaging criteria. No pneumomediastinum. VESSELS: Normal caliber thoracic aorta. No evidence of traumatic aortic injury. No significant aortic atherosclerosis. HEART: Normal size. No significant coronary artery calcifications. No significant pericardial effusion. LUNG, AIRWAYS, PLEURA: No pulmonary contusion, laceration, pleural effusion or pneumothorax. CHEST WALL SOFT TISSUES: No discernible acute abnormality. OSSEOUS STRUCTURES: No acute osseous abnormality. CT ABDOMEN/PELVIS: ABDOMINAL WALL: Small fat containing umbilical hernia. Fat containing right inguinal hernia. LIVER: Normal attenuation. No focal lesions. No traumatic abnormality. BILE DUCTS: No significant intrahepatic or extrahepatic dilatation. GALLBLADDER: No significant abnormality. PANCREAS: No significant abnormality. SPLEEN: No significant abnormality. ADRENALS: No significant abnormality. KIDNEYS, URETERS, BLADDER: No significant abnormality. REPRODUCTIVE ORGANS: No significant abnormality. VESSELS: No acute vascular injury. LYMPH NODES/RETROPERITONEUM : No acute retroperitoneal abnormality. No enlarged lymph nodes. BOWEL/MESENTERY/PERIT ONEUM: No bowel wall thickening or dilatation. Normal appendix. No ascites, free air or fluid collection. MUSCULOSKELETAL: Mild amount of degenerative/scleroti c changes involving the sacroiliac joints. No evidence of acute osseous abnormality. CT THORACIC SPINE: PARASPINAL SOFT TISSUES: No paravertebral fluid collection or significant edema. ALIGNMENT: No traumatic spondylolisthesis or traumatic facet widening. VERTEBRAE: No acute fracture. Vertebral body heights are maintained. SPINAL CANAL/INTERVERTEBRAL DISCS: No high-grade spinal canal stenosis. No significant disc height loss. CT LUMBAR SPINE: PARASPINAL SOFT TISSUES: No paravertebral fluid collection or significant edema. ALIGNMENT: No traumatic spondylolisthesis or traumatic facet widening. VERTEBRAE: No acute fracture. Vertebral body heights are maintained. SPINAL CANAL/INTERVERTEBRAL DISCS: No high-grade spinal canal stenosis. No significant disc height loss. NEURAL FORAMINA: No significant neural foraminal stenosis. IMPRESSION: CT CHEST/ABDOMEN/PELVIS: *No acute traumatic injury. CT THORACIC AND LUMBAR SPINE: *No acute fracture or traumatic malalignment. I personally reviewed the images/study and I agree with the findings as stated by resident Horacio Loera. This study was interpreted at [place], [place]. MACRO: None. Signed by: Julián Mendez 11/01/2024 1:14 AM Dictation workstation: [id number] Normal [facility] Comprehensive metabolic 2000 panelon 10-31-2024 Albumin BCP dye [Mass/Vol] 4.8 g/dL 3.4 - 5.0 g/dL [facility] ALP [Catalytic activity/Vol] 89 U/L 33 - 120 U/L [facility] ALT With P-5'-P [Catalytic activity/Vol] 39 U/L 10 - 52 U/L [facility] Comment on above: Patients treated wit h Sulfasalazine may generate falsely decreased results for ALT. Anion gap [Moles/Vol] 12 mmol/L 10 - 20 mmol/L [facility] AST With P-5'-P [Catalytic activity/Vol] 24 U/L 9 - 39 U/L [facility] Bilirubin [Mass/Vol] 0.6 mg/dL 0.0 - 1 .2 mg/dL [facility] Calcium [Mass/Vol] 10.1 mg/dL 8.6 - 10. 6 mg/dL [facility] Chloride [Moles/Vol] 98 mmol/L 98 - 10 7 mmol/L [facility] CO2 [Moles/Vol] 29 mmol/L 21 - 32 mmol/L [facility] Creatinine [Mass/Vol] 1.14 mg/dL 0.50 - 1.30 mg/dL [facility] GFR/1.73 sq M.predicted among non-blacks MDRD (S/P/Bld) [Vol rate/Area] 88 mL/min/{1.73_m2} - PINF [facility] Comment on above: Calculations of davey mated GFR are performed using the 2020 CKD-EPI Study Refit equation without the race variable for the IDMS-Traceable creatinine methods. https://jasn.asnjournals.org/content/early/ASN.39356 75006 Glucose [Mass/Vol] 101 mg/dL High 74 - 99 mg/dL [facility] Interpretation and review of laboratory results Abnormal [facility] Potassium [Moles/Vol] 4.4 mmol/L 3.5 - 5.3 mmol/L [facility] Protein [Mass/Vol] 8.2 g/dL 6.4 - 8.2 g/dL [facility] Sodium [Moles/Vol] 135 mmol/L Low 136 - 145 mmol/L [facility] Urea nitrogen [Mass/Vol] 15 mg/dL 6 - 23 mg/dL [facility] Albumin BCP dye [Mass/Vol] 4.8 g/dL Normal 3.4-5.0 [facility] Comment on above: Performed By: #### 2 4323-8 #### MIRANDA Sims ([id number]) [facility] ([facility]) [address] [place] [address] ALP [Catalytic activity/Vol] 89 U/L Normal 33-120 [facility] Comment on above: Performed By: #### 2 4323-8 #### MIRANDA Sims ([id number]) [facility] ([facility]) [address] [place] [address] ALT With P-5'-P [Catalytic activity/Vol] 39 U/L Normal 10-52 [facility] Comment on above: Result Comment: Chloe ents treated with Sulfasalazine may generate falsely decreased results for ALT. Performed By: #### 2 4323-8 #### MIRANDA Sims ([id number]) [facility] ([facility]) [address] [place] [address] Anion gap [Moles/Vol] 12 mmol/L Normal 10-20 [facility] Comment on above: Performed By: #### 2 4323-8 #### MIRANDA Sims ([id number]) [facility] ([facility]) [address] [place] [address] AST With P-5'-P [Catalytic activity/Vol] 24 U/L Normal 9-39 [facility] Comment on above: Performed By: #### 2 4323-8 #### MIRANDA GONZALEZ L ([id number]) [facility] ([facility]) [address] [place] [address] Bilirubin [Mass/Vol] 0.6 mg/dL Normal 0.0-1.2 [facility] Comment on above: Performed By: #### 2 4323-8 #### MIRANDA Sims ([id number]) [facility] ([facility]) [address] [place] [address] Calcium [Mass/Vol] 10.1 mg/dL Normal 8.6-10.6 [facility] Comment on above: Performed By: #### 2 4323-8 #### MIRANDA GONZALEZ L ([id number]) [facility] ([facility]) [address] [place] [address] Chloride [Moles/Vol] 98 mmol/L Normal 98-107 [facility] Comment on above: Performed By: #### 2 4323-8 #### MIRANDA GONZALEZ L ([id number]) [facility] ([facility]) [address] [place] [address] CO2 [Moles/Vol] 29 mmol/L Normal 21-32 [facility] Comment on above: Performed By: #### 2 4323-8 #### MIRANDA Sims ([id number]) [facility] ([facility]) [address] [place] [address] Creatinine [Mass/Vol] 1.14 mg/dL Normal 0.50-1.30 [facility] Comment on above: Performed By: #### 2 4323-8 #### MIRANDA Sims ([id number]) [facility] ([facility]) [address] [place] [address] 68908 Glomerular filtration rate/1.73 sq M.predicted 88 mL/min/1.73m*2 Normal >60 [facility] Comment on above: Result Comment: Calc ulations of estimated GFR are performed using the 2020 CKD-EPI Study Refit equation without the race variable for the IDMS-Traceable creatinine methods. https://jasn.asnjournals.org/content/early//ASN.02932 25350 Performed By: #### 2 4323-8 #### MIRANDA Sims ([id number]) [facility] ([facility]) [address] [place] [address] Glucose [Mass/Vol] 101 mg/dL High 74-99 [facility] Comment on above: Performed By: #### 2 4323-8 #### MIRANDA Sims ([id number]) [facility] ([facility]) [address] [place] [address] Potassium [Moles/Vol] 4.4 mmol/L Normal 3.5-5.3 [facility] Comment on above: Performed By: #### 2 4323-8 #### MIRANDA Sism ([id number]) [facility] ([facility]) [address] [place] [address]13 Protein [Mass/Vol] 8.2 g/dL Normal 6.4-8.2 [facility] Comment on above: Performed By: #### 2 4323-8 #### MIRANDA Sims ([id number]) [facility] ([facility]) [address] [place] [address] Sodium [Moles/Vol] 135 mmol/L Low 136-145 [facility] Comment on above: Performed By: #### 2 4323-8 #### MIRANDA Sims ([id number]) [facility] ([facility]) [address] [place] [address] 16187 Urea nitrogen [Mass/Vol] 15 mg/dL Normal 6- [facility] Comment on above: Performed By: #### 2 4323-8 #### MIRANDA Sims ([id number]) [facility] ([facility]) [address] [place] [address] ECG 12 leadOrdered By: Linda Rich on 10-31-2024 Atrial Rate 99 BPM [facility] Work Phone: [phone] P [place] 58 degrees [facility] Work Phone: [phone] P Offset 200 [facility] Work Phone: [phone] P Onset 148 [facility] Work Phone: [phone] DC Interval 156 ms [facility] Work Phone: [phone] Q Onset 226 ms [facility] Work Phone: [phone] QRS Count 16 beats [facility] Work Phone: [phone] QRS Duration 92 ms [facility] Work Phone: [phone] QT Interval 340 ms [facility] Work Phone: [phone] QTC Calculation(Bazett) 436 [facility] Work Phone: [phone] QTC Fredericia 401 [facility] Work Phone: [phone] R [place] 55 degrees [facility] Work Phone: [phone] T [place] 56 degrees [facility] Work Phone: [phone] T Offset 396 ms [facility] Work Phone: [phone] Ventricular Rate 99 BPM [facility] Work Phone: [facility] Work Phone: ECG 12 leadon 10-31-2024 Normal sinus rhythm Nonspecific ST abnormality Abnormal ECG No previous ECGs available See ED provider note for full interpretation and clinical correlation Confirmed by Linda Rich ([id number]) on 10/31/2024 7:19:36 PM Linda Madsen, DIRECT SALES CONSULTANT-[facility] - 10/31/2024 Normal sinus rhythm Nonspecific ST abnormality Abnormal ECG No previous ECGs available See ED provider note for full interpretation and clinical correlation Confirmed by Linda Rich ([id number]) on 10/31/2024 7:19:36 PM [facility] Work Phone: Ethanolon 10-31-2024 Ethanol [Mass/Vol] mg/dL NINF - 10 mg/dL [facility] Comment on above: For medical use only . Ethanol [Mass/Vol] mg/dL Normal <=10 [facility] Comment on above: Result Comment: For medical use only. Performed By: #### 5 643-2 ####MIRANDA Sims ([id number])[facility] ([facility])[address] [place] [address] Ethanol [Mass/Vol]on 025 Interpretation and review of laboratory results Normal [facility] Gas panel (BldV)on 5 Anion gap 4 (BldV) [Moles/Vol] 9 mmol/L Low 10.0 - 25.0 mmol/L [facility] Base excess Calc (BldV) [Moles/Vol] 2.7 mmol/L -2.0 - 3.0 mmol/L [facility] Calcium.ionized (BldV) [Moles/Vol] 1.23 mmol/L 1.10 - 1.33 mmol/L [facility] Chloride (BldV) [Moles/Vol] 99 mmol/L 98 - 107 mmol/L [facility] CO2 (BldV) [Partial pressure] 54 mm[Hg] High [facility] Glucose [Mass/Vol] 110 mg/dL High 74 - 99 mg/dL [facility] H[facility]3 (Bld) [Moles/Vol] 29.8 mmol/L High 22.0 - 26.0 mmol/L [facility] Hematocrit Est (Bld) [Volume fraction] 48 % 41.0 - 52.0 % [facility] Hemoglobin (Bld) [Mass/Vol] 16.1 g/dL 13.5 - 17.5 g/dL [facility] Inhaled oxygen concentration 21 % [facility] Interpretation and review of laboratory results Abnormal [facility] Lactate (BldV) [Moles/Vol] 1.3 mmol/L 0.4 - 2.0 mmol/L [facility] Oxygen (BldV) [Partial pressure] 24 mm[Hg] Low [facility] Oxygen saturation in Venous blood 37 % Low 45 - 75 % [facility] Oxyhemoglobin (BldV) [Mass fraction] 36.4 % Low 45.0 - 75.0 % [facility] pH (BldV) 7.35 [pH] 7.33 - 7.43 pH [facility] Potassium (BldV) [Moles/Vol] 4.6 mmol/L 3.5 - 5.3 mmol/L [facility] Sodium (BldV) [Moles/Vol] 133 mmol/L Low 136 - 145 mmol/L [facility] Anion gap 4 (BldV) [Moles/Vol] 9.0 mmol/L Low 10.0-25.0 [facility] Comment on above: Performed By: #### 2 4339-4 #### MIRANDA Sims ([id number]) [facility] ([facility]) [address] [place] [address] Base excess Calc (BldV) [Moles/Vol] 2.7 mmol/L Normal -2.0-3.0 [facility] Comment on above: Performed By: #### 2 4339-4 #### MIRANDA Sims ([id number]) [facility] ([facility]) [address] [place] [address]207 Calcium.ionized (BldV) [Moles/Vol] 1.23 mmol/L Normal 1.10-1.33 [facility] Comment on above: Performed By: #### 2 4339-4 #### MIRANDA Sims ([id number]) [facility] ([facility]) [address] [place] [address]169 Chloride (BldV) [Moles/Vol] 99 mmol/L Normal 98-107 [facility] Comment on above: Performed By: #### 2 4339-4 #### MIRANDA Sims ([id number]) [facility] ([facility]) [address] [place] [address] 25602 CO2 (BldV) [Partial pressure] 54 mm Hg High 41-51 [facility] Comment on above: Performed By: #### 2 4339-4 #### MIRANDA Sims ([id number]) [facility] ([facility]) [address] [place] [address]15 Glucose [Mass/Vol] 110 mg/dL High 74-99 [facility] Comment on above: Performed By: #### 2 4339-4 #### MIRANDA Smis ([id number]) [facility] ([facility]) [address] [place] [address] 62997 HCO3 (Bld) [Moles/Vol] 29.8 mmol/L High 22.0-26.0 [facility] Comment on above: Performed By: #### 2 4339-4 #### MIRANDA Sims ([id number]) [facility] ([facility]) [address] [place] [address] 89190 Hematocrit Est (Bld) [Volume fraction] 48.0 % Normal 41.0-52.0 [facility] Comment on above: Performed By: #### 2 4339-4 #### MIRANDA Sims ([id number]) [facility] ([facility]) [address] [place] [address] 32232 Hemoglobin (Bld) [Mass/Vol] 16.1 g/dL Normal 13.5-17.5 [facility] Comment on above: Performed By: #### 2 4339-4 #### MIRANDA Sims ([id number]) [facility] ([facility]) [address] [place] [address] 50915 Inhaled oxygen concentration 21 % Normal [facility] Comment on above: Performed By: #### 2 4339-4 #### MIRANDA Sims ([id number]) [facility] ([facility]) [address] [place] [address] 35419 Lactate (BldV) [Moles/Vol] 1.3 mmol/L Normal 0.4-2.0 [facility] Comment on above: Performed By: #### 2 4339-4 #### MIRANDA Sims ([id number]) [facility] ([facility]) [address] [place] [address] 14610 Oxygen (BldV) [Partial pressure] 24 mm Hg Low 35-45 [facility] Comment on above: Performed By: #### 2 4339-4 #### MIRANDA Sims ([id number]) [facility] ([facility]) [address] [place] [address] 87330 Oxygen saturation in Venous blood 37 % Low 45-75 [facility] Comment on above: Performed By: #### 2 4339-4 #### MIRANDA Sims ([id number]) [facility] ([facility]) [address] [place] [address] 08956 Oxyhemoglobin (BldV) [Mass fraction] 36.4 % Low 45.0-75.0 [facility] Comment on above: Performed By: #### 2 4339-4 #### MIRANDA Sims ([id number]) [facility] ([facility]) [address] [place] [address] 27935 pH (BldV) 7.35 [pH] Normal 7.33-7.43 [facility] Comment on above: Performed By: #### 2 4339-4 #### MIRANDA Sims ([id number]) [facility] ([facility]) [address] [place] [address] 99773 Potassium (BldV) [Moles/Vol] 4.6 mmol/L Normal 3.5-5.3 [facility] Comment on above: Performed By: #### 2 4339-4 #### MIRANDA Sims ([id number]) [facility] ([facility]) [address] [place] [address] 84124 Sodium (BldV) [Moles/Vol] 133 mmol/L Low 136-145 [facility] Comment on above: Performed By: #### 2 4339-4 #### MIRANDA Sims ([id number]) [facility] ([facility]) [address] [place] [address] 60099 Glucose Test strip manual (B ld) [Mass/Vol]on 10-31-2024 Glucose [Mass/Vol] 108 mg/dL High 74 - 99 mg/dL [facility] Interpretation and review of laboratory results Abnormal [facility] Glucose [Mass/Vol] 108 mg/dL High 74-99 [facility] Comment on above: Performed By: #### 2 341-6 #### MIRANDA Sims ([id number]) [facility] ([facility]) [address] [place] [address] 46129 Magnesiumon 10-31-2024 Magnesium [Mass/Vol] 2.37 mg/dL 1.60 - 2.40 mg/dL [facility] Magnesium [Mass/Vol] 2.37 mg/dL Normal 1.60-2.40 [facility] Comment on above: Performed By: #### 1 9123-9 #### MIRANDA Sims ([id number]) [facility] ([facility]) [address] [place] [address] 55753 Magnesium [Mass/Vol]on 10-31 Interpretation and review of laboratory results Normal [facility] No Panel Informationon 10-31 Radiology Study observation (narrative) [facility] Work Phone: [facility] Comminuted distal fibular fracture with additional medial malleolar avulsion injury. Suspected medial clear space widening. No evidence of syndesmotic widening. MACRO: None Signed by: Bryson Fam 10/31/2024 6:41 PM Dictation workstation: [id number] MMODAL Interpreted By: Bryson Fam, STUDY: XR TIBIA FIBULA RIGHT 2 VIEWS; XR ANKLE RIGHT 3+ VIEWS; XR KNEE RIGHT 4+ VIEWS; ; 10/31/2024 6:31 pm; 10/31/2024 6:32 pm INDICATION: Signs/Symptoms:pain after injury; Signs/Symptoms:r/o fx. COMPARISON: None. ACCESSION NUMBER(S): [id number]; [id number]; [id number] ORDERING CLINICIAN: NOAH STUART FINDINGS: Four views of the right knee. Two views of the right tibia/fibula. Three views of the right ankle. Soft tissue swelling about the ankle. There an avulsion fracture of the medial malleolus. Obliquely oriented comminuted distal fibular fracture above the level of the distal tibiofibular syndesmosis. There is suspected medial clear space widening. No evidence of syndesmotic widening. MMODAL Bryson Fam MD - 10/31/2024 Interpreted By: Bryson Fam, STUDY: XR TIBIA FIBULA RIGHT 2 VIEWS; XR ANKLE RIGHT 3+ VIEWS; XR KNEE RIGHT 4+ VIEWS; ; 10/31/2024 6:31 pm; 10/31/2024 6:32 pm INDICATION: Signs/Symptoms:pain after injury; Signs/Symptoms:r/o fx. COMPARISON: None. ACCESSION NUMBER(S): [id number]; [id number]; [id number] ORDERING CLINICIAN: NOAH STUART FINDINGS: Four views of the right knee. Two views of the right tibia/fibula. Three views of the right ankle. Soft tissue swelling about the ankle. There an avulsion fracture of the medial malleolus. Obliquely oriented comminuted distal fibular fracture above the level of the distal tibiofibular syndesmosis. There is suspected medial clear space widening. No evidence of syndesmotic widening. IMPRESSION: Comminuted distal fibular fracture with additional medial malleolar avulsion injury. Suspected medial clear space widening. No evidence of syndesmotic widening. MACRO: None Signed by: Bryson Fam 10/31/2024 6:41 PM Dictation workstation: [id number] [facility] Work Phone: Radiology Study observation (narrative) [facility] Work Phone: No Panel InformationOrdered By: Bryson Fam on 10-31-2024 [facility] Work Phone: PT and aPTT panel Coag (PPP) on 10-31-2024 aPTT Coag (PPP) [Time] 26 s [facility] INR Coag (PPP) [Relative time] 1 {INR} 0.9 - 1.1 [facility] Interpretation and review of laboratory results Normal [facility] PT Coag (PPP) [Time] 11 s [facility] The APTT is no longe r used for monitoring Unfractionated Heparin Therapy. For monitoring Heparin Therapy, use the Heparin Assay. [facility] aPTT Coag (PPP) [Time] 26 s Normal 26-36 [facility] Comment on above: Order Comment: The A PTT is no longer used for monitoring Unfractionated Heparin Therapy. For monitoring Heparin Therapy, use the Heparin Assay. Performed By: #### 3 4529-8 ####MIRANDA Sims ([id number])[facility] ([facility])[address] [place] [address] 41865 INR Coag (PPP) [Relative time] 1.0 Normal 0.9-1.1 [facility] Comment on above: Order Comment: The A PTT is no longer used for monitoring Unfractionated Heparin Therapy. For monitoring Heparin Therapy, use the Heparin Assay. Performed By: #### 3 4529-8 ####MIRANDA Sims ([id number])[facility] ([facility])[address] [place] [address] 40701 PT Coag (PPP) [Time] 11.0 s Normal 9.8-12.4 [facility] Comment on above: Order Comment: The A PTT is no longer used for monitoring Unfractionated Heparin Therapy. For monitoring Heparin Therapy, use the Heparin Assay. Performed By: #### 3 4529-8 ####MIRANDA Sims ([id number])[facility] ([facility])[address] [place] [address] Tropinin I.cardiac panel Hig h sensitivity methodon 10-31-2024 Interpretation and review of laboratory results Normal [facility] Less than 99th percentile of normal range cutoff- Female and children under 18 years old <35 ng/L; Male <54 ng/L: Negative Repeat testing should be performed if clinically indicated. Female and children under 18 years old 35-120 ng/L; Male 54-120 ng/L: Consistent with possible cardiac damage and possible increased clinical risk. Serial measurements may help to assess extent of myocardial damage. >120 ng/L: Consistent with cardiac damage, increased clinical risk and myocardial infarction. Serial measurements may help assess extent of myocardial damage. NOTE: Children less than 1 year old may have higher baseline troponin levels and results should be interpreted in conjunction with the overall clinical context. NOTE: Troponin I testing is performed using a different testing methodology at [facility] than at other [facility]. Direct result comparisons should only be made within the same method. [facility] Interpretation and review of laboratory results Normal [facility] Less than 99th percentile of normal range cutoff- Female and children under 18 years old <35 ng/L; Male <54 ng/L: Negative Repeat testing should be performed if clinically indicated. Female and children under 18 years old 35-120 ng/L; Male 54-120 ng/L: Consistent with possible cardiac damage and possible increased clinical risk. Serial measurements may help to assess extent of myocardial damage. >120 ng/L: Consistent with cardiac damage, increased clinical risk and myocardial infarction. Serial measurements may help assess extent of myocardial damage. NOTE: Children less than 1 year old may have higher baseline troponin levels and results should be interpreted in conjunction with the overall clinical context. NOTE: Troponin I testing is performed using a different testing methodology at [facility] than at other [facility]. Direct result comparisons should only be made within the same method. [facility] Troponin I, High Sensitivity , Initialon 10-31-2024 Tropinin I.cardiac panel High sensitivity method ng/L 0 - 53 ng/L [facility] Troponin I.cardiac panelon 0 10-31-2024 Tropinin I.cardiac panel High sensitivity method <3 Normal 0-53 [facility] Comment on above: Order Comment: Less than 99th percentile of normal range cutoff-Female and children under 18 years old <35 ng/L; Male <54 ng/L: NegativeRepeat testing should be performed if clinically indicated.Female and children under 18 years old 35-120 ng/L; Male 54-120 ng/L:Consistent with possible cardiac damage and possible increased clinicalrisk. Serial measurements may help to assess extent of myocardial damage.>120 ng/L: Consistent with cardiac damage, increased clinical risk andmyocardial infarction. Serial measurements may help assess extent ofmyocardial damage.NOTE: Children less than 1 year old may have higher baseline troponinlevels and results should be interpreted in conjunction with the overallclinical context.NOTE: Troponin I testing is performed using a differenttesting methodology at [facility] than at [facility]. Direct result comparisons should onlybe made within the same method. Performed By: #### 8 9577-1 ####MIRANDA Sims ([id number])[facility] ([facility])[address] [place] [address] Tropinin I.cardiac panel High sensitivity method <3 Normal 0-53 [facility] Comment on above: Order Comment: Less than 99th percentile of normal range cutoff- Female and children under 18 years old <35 ng/L; Male <54 ng/L: Negative Repeat testing should be performed if clinically indicated. Female and children under 18 years old 35-120 ng/L; Male 54-120 ng/L: Consistent with possible cardiac damage and possible increased clinical risk. Serial measurements may help to assess extent of myocardial damage. >120 ng/L: Consistent with cardiac damage, increased clinical risk and myocardial infarction. Serial measurements may help assess extent of myocardial damage. NOTE: Children less than 1 year old may have higher baseline troponin levels and results should be interpreted in conjunction with the overall clinical context. NOTE: Troponin I testing is performed using a different testing methodology at [facility] than at other [facility]. Direct result comparisons should only be made within the same method. Performed By: #### 8 9577-1 #### MIRANDA Sims ([id number]) [facility] ([facility]) [address] [place] [address] Troponin, High Sensitivity, 1 Houron 10-31-2024 Tropinin I.cardiac panel High sensitivity method ng/L 0 - 53 ng/L [facility] XR ANKLE RIGHT 3+ VIEWSon XR ANKLE RIGHT 3+ VIEWS Interpreted By: Julián Mendez and Ritchie Brandon STUDY: XR ANKLE RIGHT 3+ VIEWS; ; 10/31/2024 9:38 pm INDICATION: Signs/Symptoms:post reduction. COMPARISON: Radiograph of the right ankle 10/31/2024, 6:32 p.m.. ACCESSION NUMBER(S): [id number] ORDERING CLINICIAN: NOAH COLVIN TECHNIQUE: Three views of the right ankle were provided for review. FINDINGS: Redemonstration of comminuted distal fibular fracture above the level of the distal tibiofibular syndesmosis with similar alignment to prior examination. Interval casting/splinting material which obscures the avulsion fracture of the distal tip of the medial malleolus. The degree of medial clear space widening is less conspicuous on current examination. IMPRESSION: *Comminuted fibula fracture with similar alignment compared to prior imaging. Previously described medial malleolus avulsion fracture is not well visualized, likely obscured by overlying cast material. I personally reviewed the images/study and I agree with the findings as stated by resident Horacio Loera. This study was interpreted at [place], [place]. MACRO: None Signed by: Julián Mendez 10/31/2024 10:25 PM Dictation workstation: [id number] Normal [facility] XR ANKLE RIGHT 3+ VIEWS Interpreted By: Bryson Fam, STUDY: XR TIBIA FIBULA RIGHT 2 VIEWS; XR ANKLE RIGHT 3+ VIEWS; XR KNEE RIGHT 4+ VIEWS; ; 10/31/2024 6:31 pm; 10/31/2024 6:32 pm INDICATION: Signs/Symptoms:pain after injury; Signs/Symptoms:r/o fx. COMPARISON: None. ACCESSION NUMBER(S): [id number]; [id number]; [id number] ORDERING CLINICIAN: NOAH COLVIN; IKE STUART FINDINGS: Four views of the right knee. Two views of the right tibia/fibula. Three views of the right ankle. Soft tissue swelling about the ankle. There an avulsion fracture of the medial malleolus. Obliquely oriented comminuted distal fibular fracture above the level of the distal tibiofibular syndesmosis. There is suspected medial clear space widening. No evidence of syndesmotic widening. IMPRESSION: Comminuted distal fibular fracture with additional medial malleolar avulsion injury. Suspected medial clear space widening. No evidence of syndesmotic widening. MACRO: None Signed by: Bryson Fam 10/31/2024 6:41 PM Dictation workstation: [id number] Normal [facility] XR Ankle - right 3 Viewson 0 10-31-2024 *Comminuted fibula fracture with similar alignment compared to prior imaging. Previously described medial malleolus avulsion fracture is not well visualized, likely obscured by overlying cast material. I personally reviewed the images/study and I agree with the findings as stated by resident Horacio Loera. This study was interpreted at [place], [place]. MACRO: None Signed by: Julián Mendez 10/31/2024 10:25 PM Dictation workstation: [id number] [facility] Interpreted By: Julián Mendez and Ritchie Brandon STUDY: XR ANKLE RIGHT 3+ VIEWS; ; 10/31/2024 9:38 pm INDICATION: Signs/Symptoms:post reduction. COMPARISON: Radiograph of the right ankle 10/31/2024, 6:32 p.m.. ACCESSION NUMBER(S): [id number] ORDERING CLINICIAN: NOAH COLVIN TECHNIQUE: Three views of the right ankle were provided for review. FINDINGS: Redemonstration of comminuted distal fibular fracture above the level of the distal tibiofibular syndesmosis with similar alignment to prior examination. Interval casting/splinting material which obscures the avulsion fracture of the distal tip of the medial malleolus. The degree of medial clear space widening is less conspicuous on current examination. [facility] Julián Mendez MD - 10/31/2024 Interpreted By: VanessaJulián mniaya and Ritchie Brandon STUDY: XR ANKLE RIGHT 3+ VIEWS; ; 10/31/2024 9:38 pm INDICATION: Signs/Symptoms:post reduction. COMPARISON: Radiograph of the right ankle 10/31/2024, 6:32 p.m.. ACCESSION NUMBER(S): [id number] ORDERING CLINICIAN: NOAH COLVIN TECHNIQUE: Three views of the right ankle were provided for review. FINDINGS: Redemonstration of comminuted distal fibular fracture above the level of the distal tibiofibular syndesmosis with similar alignment to prior examination. Interval casting/splinting material which obscures the avulsion fracture of the distal tip of the medial malleolus. The degree of medial clear space widening is less conspicuous on current examination. IMPRESSION: *Comminuted fibula fracture with similar alignment compared to prior imaging. Previously described medial malleolus avulsion fracture is not well visualized, likely obscured by overlying cast material. I personally reviewed the images/study and I agree with the findings as stated by resident Horacio Loera. This study was interpreted at [place], [place]. MACRO: None Signed by: Julián Mendez 10/31/2024 10:25 PM Dictation workstation: [id number] [facility] Work Phone: Radiology Study observation (narrative) [facility] Work Phone: XR Ankle - right 3 ViewsOrde red By: Julián Mendez on 10-31-2024 [facility] Work Phone: XR CHEST 1 VIEWon 10-31-2024 XR CHEST 1 VIEW Interpreted By: Bryson Fam, STUDY: XR CHEST 1 VIEW; 10/31/2024 6:32 pm INDICATION: Signs/Symptoms:preop. COMPARISON: None. ACCESSION NUMBER(S): [id number] ORDERING CLINICIAN: IKE STUART FINDINGS: AP radiograph of the chest was provided. CARDIOMEDIASTINAL SILHOUETTE: Cardiomediastinal silhouette is normal in size and configuration. LUNGS: No focal consolidation, pleural effusion, or pneumothorax. ABDOMEN: No remarkable upper abdominal findings. BONES: No acute osseous changes. IMPRESSION: 1. No evidence of acute cardiopulmonary process. MACRO: None Signed by: Bryson Fam 10/31/2024 6:41 PM Dictation workstation: [id number] [facility] XR Chest Single viewon 10-31 1. No evidence of acute cardiopulmonary process. MACRO: None Signed by: Bryson Fam 10/31/2024 6:41 PM Dictation workstation: [id number] [facility] Interpreted By: Bryson Fam, STUDY: XR CHEST 1 VIEW; 10/31/2024 6:32 pm INDICATION: Signs/Symptoms:preop. COMPARISON: None. ACCESSION NUMBER(S): [id number] ORDERING CLINICIAN: IKE STUART FINDINGS: AP radiograph of the chest was provided. CARDIOMEDIASTINAL SILHOUETTE: Cardiomediastinal silhouette is normal in size and configuration. LUNGS: No focal consolidation, pleural effusion, or pneumothorax. ABDOMEN: No remarkable upper abdominal findings. BONES: No acute osseous changes. MMODAL Bryson Fam MD - 10/31/2024 Interpreted By: Bryson Fam, STUDY: XR CHEST 1 VIEW; 10/31/2024 6:32 pm INDICATION: Signs/Symptoms:preop. COMPARISON: None. ACCESSION NUMBER(S): [id number] ORDERING CLINICIAN: IKE STUART FINDINGS: AP radiograph of the chest was provided. CARDIOMEDIASTINAL SILHOUETTE: Cardiomediastinal silhouette is normal in size and configuration. LUNGS: No focal consolidation, pleural effusion, or pneumothorax. ABDOMEN: No remarkable upper abdominal findings. BONES: No acute osseous changes. IMPRESSION: 1. No evidence of acute cardiopulmonary process. MACRO: None Signed by: Bryson Fam 10/31/2024 6:41 PM Dictation workstation: [id number] [facility] Work Phone: [facility] Work Phone: XR KNEE RIGHT 4+ VIEWSon XR KNEE RIGHT 4+ VIEWS Interpreted By: Bryson Fam, STUDY: XR TIBIA FIBULA RIGHT 2 VIEWS; XR ANKLE RIGHT 3+ VIEWS; XR KNEE RIGHT 4+ VIEWS; ; 10/31/2024 6:31 pm; 10/31/2024 6:32 pm INDICATION: Signs/Symptoms:pain after injury; Signs/Symptoms:r/o fx. COMPARISON: None. ACCESSION NUMBER(S): [id number]; [id number]; [id number] ORDERING CLINICIAN: NOAH STUART FINDINGS: Four views of the right knee. Two views of the right tibia/fibula. Three views of the right ankle. Soft tissue swelling about the ankle. There an avulsion fracture of the medial malleolus. Obliquely oriented comminuted distal fibular fracture above the level of the distal tibiofibular syndesmosis. There is suspected medial clear space widening. No evidence of syndesmotic widening. IMPRESSION: Comminuted distal fibular fracture with additional medial malleolar avulsion injury. Suspected medial clear space widening. No evidence of syndesmotic widening. MACRO: None Signed by: Bryson Fam 10/31/2024 6:41 PM Dictation workstation: [id number] [facility] XR TIBIA FIBULA RIGHT 2 VIEW Son 10-31-2024 XR TIBIA FIBULA RIGHT 2 VIEWS Interpreted By: Bryson Fam, STUDY: XR TIBIA FIBULA RIGHT 2 VIEWS; XR ANKLE RIGHT 3+ VIEWS; XR KNEE RIGHT 4+ VIEWS; ; 10/31/2024 6:31 pm; 10/31/2024 6:32 pm INDICATION: Signs/Symptoms:pain after injury; Signs/Symptoms:r/o fx. COMPARISON: None. ACCESSION NUMBER(S): [id number]; [id number]; [id number] ORDERING CLINICIAN: NOAH STUART FINDINGS: Four views of the right knee. Two views of the right tibia/fibula. Three views of the right ankle. Soft tissue swelling about the ankle. There an avulsion fracture of the medial malleolus. Obliquely oriented comminuted distal fibular fracture above the level of the distal tibiofibular syndesmosis. There is suspected medial clear space widening. No evidence of syndesmotic widening. IMPRESSION: Comminuted distal fibular fracture with additional medial malleolar avulsion injury. Suspected medial clear space widening. No evidence of syndesmotic widening. MACRO: None Signed by: Bryson Fam 10/31/2024 6:41 PM Dictation workstation: [id number] [facility] XR Tibia and Fibula - right 2 Viewson 10-31-2024 Radiology Study observation (narrative) [facility] Work Phone: Chest PA and Lateralon 03-27 Chest PA and Lateral [facility] Imaging Services [address] [place] [address] Chest PA and Lateral MR#: [id number] Acct: [id number] Name: AVTARJAVED Rep #: [id number] : 1995 M 28 From: Naomi dillon MD PCP: Care Physician,No Primary Status: REG ER Study: Chest PA and Lateral Date of Exam: 03/27/24 Exam# [id number] Ordering Dr: German Zhang DO [id number] HISTORY: Cough. TECHNIQUE: XR Chest 2 Views. COMPARISON: 05/02/2019. FINDINGS: CARDIOMEDIASTINAL BORDERS: Cardiac silhouette within normal limits in size. Mediastinal contour unremarkable. LUNGS: Mild consolidation in the left lung base. PLEURA: No pleural effusion or pneumothorax seen. OSSEOUS STRUCTURES: Unremarkable. RAD/Chest PA and Lateral IMPRESSION: Mild left basilar opacity, likely pneumonia. Electronically Signed: Naomi Weaver MD at 12:50 EDT , CC: Dr. German Zhang DO; No Primary Care Physician Central Office Trouble Shooter: Signed Normal [facility] Emergency Department Summary on 03-27-2024 Emergency Department Summary [facility] Medical Records Department [address] [place] [address] Emergency Department Summary 03/27/24 MR#: [id number] Acct: [id number] Name: JAVED REYES Rep #: [id number] : 1995 28 From: German Zhang DO PCP: Care Physician,No Primary Status:DEP ER Location: ED HPI HPI - URI History of Present Illness Chief Complaint: Cold Sx Narrative Narrative: Patient presents with cough and congestion that has been getting worse over the past 3 days. Patient states today he is coughing up some green sputum. Patient states he has had some mild shortness of breath with this. Patient also admits to a headache. Patient admits to a sore throat. Patient describes his pain as sharp. Patient states nothing makes it worse and nothing makes it better. Patient denies any fevers or chills. ROS ROS ED Constitutional Constitutional ED: Denies chills or fever(s) Eyes Eyes: Denies blurry vision or change in vision ENT ENT ED: Reports sore throat; Denies rhinorrhea Cardiovascular Cardiovascular: Denies chest pain or palpitations Respiratory/Chest Respiratory/Chest: Reports cough and dyspnea Gastrointestinal Gastrointestinal: Reports diarrhea; Denies nausea or vomiting Genitourinary Genitourinary ED: Denies dysuria or hematuria Musculoskeletal Musculoskeletal: Denies back pain or neck pain Integumentary Denies abscess or rash Neurologic Neurologic: Reports headache(s); Denies weakness Allergic/Immunologic Allergic/Immunologic ED: Denies mouth swelling or urticaria PFSH PFSH Medical History (Updated 03/27/24 @ 13:[address] German Zhang DO) Chronic neck and back pain Chest pain Severe headache Shortness of breath Home Medications ???Medication ???Instructions ???Recorded ???Last Taken ???Type azithromycin 250 mg tablet 250 mg PO DAILY 4 days #4 tabs 03/27/24 Unknown Rx Allergy/AdvReac Type Severity Reaction Status Date / Time No Known Allergies Allergy Verified 03/27/24 11:26 Surgical History (Updated 03/27/24 @ 11:[address] German Zhang DO) Hx of tonsillectomy Social History Smoking Status: Current some day smoker tobacco type: smokeless tobacco Smokeless tobacco user: chewing tobacco alcohol intake: current alcohol intake frequency: holidays/special occasions only EXAM Physical Exam Const Vital Signs: 03/27/24 10:01 03/27/24 11:25 03/27/24 11:26 Temperature 98.3 F Temperature Source Temporal Pulse Rate 90 Respiratory Rate 18 Respiratory Effort Normal Normal Respiratory Depth Normal Respiratory Pattern Normal Normal Blood Pressure 154/90 H Blood Pressure Mean 111 Pulse Ox 99 Oxygen Delivery Method Room Air Room Air Positive well nourished and well developed General Appearance ED: well developed and NAD HEENT Reports moist mucous membranes normocephalic Neck supple, no meningeal signs and no JVD Resp normal respiratory effort and clear to auscultation bilaterally Cardio Rate: regular rate Rhythm: regular rhythm GI non-tender and non-distended Palpation: soft Neuro oriented x3, CN's II-XII intact bilaterally and no sensory deficits noted Sensorium / Orientation: alert Motor Exam: strength 5/5 throughout Psych mental status grossly normal MDM MDM MDM Narrative Medical decision making narrative: Differential diagnosis includes strep pharyngitis, viral pharyngitis, bronchitis, and pneumonia. Chest x-ray will be obtained to assess for pneumonia and bronchitis. Rapid strep will be obtained to assess for strep pharyngitis. COVID-19, RSV, and influenza PCR will be obtained to assess for viral illness. Lab Data Lab results narrative: COVID-19 PCR was reviewed and was negative. Influenza PCR was reviewed and was negative for influenza A and influenza B. RSV PCR was reviewed and was negative. Radiography Chest X-Ray - ED: 2 View, Read by ED Physician, Read by Radiologist and Left Infiltrate Diagnostic Testing: Clinical Impression(s) from Imaging Studies Chest X-Ray 03/27/24 11:43 IMPRESSION: Mild left basilar opacity, likely pneumonia. Electronically Signed: Naomi Weaver MD at 12:50 EDT , PA and lateral chest x-ray was obtained. There are 2 views. On my independent interpretation, lung collier show a left basilar infiltrate. There is normal cardiac silhouette. Bony thorax is normal. Radiologist also interpreted the x-ray and agrees. Treatment and Re-Evaluation Narrative: Tobacco cessation was discussed. The patient was advised of his findings. Patient was given a dose of Zithromax here. Patient was given a prescription for Zithromax. Pa (more content not included)... Normal [facility] M100.677on 03-27-2024 M100.677 Negative Normal [facility] Comment on above: Performed By: #### M 100.677, M100.678 #### [facility] [address] [place], [place], [address] M100.678on 03-27-2024 M100.678 Pending SARS-CoV-2 (COVID 19) Negative INFLUENZA A Negative INFLUENZA B Negative RSV PCR Negative Normal [facility] Comment on above: Performed By: #### M 100.677, M100.678 #### [facility] [address] [place], [place], [address] ED NOTEon 09-02-2023 ED NOTE HNO ID: [id number] Author: FLAQUITO CHOI RN Service: Emergency Medicine Author Type: Registered Nurse Type: ED Notes Filed: 09/03/2023 20:32 Note Text: Emergency Services: ED Call Back Questionnaire SERVICE DATE: 09/02/2023 Are you feeling better? No Any questions about discharge instructions and follow-up care? No Were you able to make a follow up appointment? Yes Do you have any further questions? No Is there anything that we could have done differently to improve your ED visit? No SIGNATURE: Flaquito Choi RN PATIENT NAME: Javed Reyes DATE: September 03, 2023 TIME: 8:32 PM Normal [facility] ED PROV NOTEon 09-02-2023 ED PROV NOTE HNO ID: [id number] Author: LIBERTAD SALES MD Service: Emergency Medicine Author Type: Physician Type: ED Provider Notes Filed: 09/02/2023 13:00 Note Text: ED Provider Note Patient Name: Javed Reyes : 1995 SERVICE DATE: 09/02/23 History Patient presents with: Sinus Problem Cough Flu Like Symptoms Headache HPI 28-year-old gentleman with history as below, denies known pulmonary history but does have extensive smoking history presenting with complaints of headache, congestion, sinus pressure and cough. History is provided by patient. Reports that he has had symptoms for about a month now but it seems to be acutely worsened last few days. Reports sinus pain, pressure, congestion postnasal drip and dry cough. States that he is unable to get any sleep or relief. Has tried some OTC but not getting any improvement. Denies history of asthma, COPD but states that he just keeps coughing time he tries to lay back. Due to feeling unwell still not able to work today presents for ED assessment. Does have a history of recurrent sinus infections with weather changes. No chest pain, no shortness of breath PAST MEDICAL HISTORY Diagnosis Date Brain trauma (HCC) PAST SURGICAL HISTORY Procedure Laterality Date TONSILLECTOMY HX FAMILY HISTORY Problem Relation Age of Onset other (lupus) Mother Psoriasis Father other (prediabetic) Maternal Grandmother Heart Attack Maternal Grandfather other (hypothyroid) Sister Social History Tobacco Use Smoking status: Former Types: Cigarettes Smokeless tobacco: Current Types: Chew Vaping Use Vaping Use: Never used Substance and Sexual Activity Alcohol use: Yes Comment: is quitting- has been one month without Drug use: Yes Types: Marijuana Comment: Once a week Sexual activity: Not Currently ALLERGIES Allergen Reactions Cats Other: See Comments Sneezing and itching Dust Other: See Comments Sneezing Review of Systems As per HPI Physical Exam Vitals BP Pulse Temp Temp src Resp SpO2 Weight Height 09/02/23 1142 09/02/23 1142 09/02/23 1142 -- 09/02/23 1142 09/02/23 1142 09/02/23 1139 09/02/23 1139 152/101 (!) 110 (!) 35.6 ?C (96.1 ?F) 20 98 % 104.3 kg (230 lb) 1.753 m (5' 9) Physical Exam Patient does look as if he feels unwell but not acutely ill. Slightly tachycardic on triage Maxillary pain bilaterally on palpation. Clear congestion noted Oropharynx with mild erythema, no exudate. Heart RRR w/o murmurs; Distal pulses intact Lungs CTAB Abd soft, NT, ND Patient moves all 4 extremities spontaneously and without deficit Diagnostic Testing ED Labs Ordered and Reviewed COVID AND INFLUENZA A/B AND RSV NAAT, EXPEDITED - Normal Narrative: This test has been authorized by FDA under an Emergency Use Authorization (EUA). Procedures ED Course / Clinical Impression Clinical Impressions as of 09/02/23 1256 Acute non-recurrent sinusitis, unspecified location COVID-19 test performed per [facility] policy for suspected COVID community exposure. MDM / Disposition / Plan MDM Patient is a 28-year-old male with history as above presenting with complaints of flu-like symptoms, URI. History and exam as above. Medical record reviewed. HPI obtained from patient DDx considered: Concern at this time for possible sinus infection given the duration of this patient's symptoms however also consider possible superimposed viral syndrome given acute worsening last few days. 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 He is having a hacking dry cough concern at this time for bronchospasm potentially exacerbated by viral illness versus sinusitis. ED COURSE: On assessment lung collier are clear so I have low suspicion for pneumonia, cough is also dry. He is given albuterol treatment for the bronchospasm with significant improvement and resolution of cough essentially. Viral testing was obtained given potential exposure but was negative for flu, COVID, RSV. Given patient is having this persisting symptoms for about a month now with second sickness in last few days recommended treatment for suspected bacterial sinusitis. Patient agreeable with plan of care. Will prescribe Augmentin, albuterol inhaler and plan for close outpatient follow-up. OTC adjuncts reviewed. Patient agreeable comfortable plan of care. Return precautions discussed Patient discharged from the Emergency Department. I do not feel that the patient's evaluation reveals any acute reason for admission at this time. I instructed them to either follow up with their primary care physician or promptly return to the Emergency Department for reevaluation should symptoms worsen or new symptoms develop. I explained what symptoms would indicate the need to return to the Emergency Department. Shared decision roopa (more content not included)... Normal [facility] FLUABV+SARS-CoV-2+RSV Pnl Re sp TOMAS+probeon 09-02-2023 FLUABV+SARS-CoV-2+RSV Pnl Resp TOMAS+probe COVID 19 RESULT: Not detected The method used is RT-PCR or an equivalent NAAT method. Reference Range(the expected result in uninfected individuals): Not detected INFLUENZA A PCR: Not detected INFLUENZA B PCR: Not detected RSV PCR: Not detected Normal [facility] Comment on above: Performed By: #### 9 [id number] #### [facility] CLIA [id number] [address] [place] [id number] [place] Vital Signs Date Time Vital Sign Value Performing Clinician Facility 11-06-2024 15:30-0400 Body temperature 97.3 [degF] Noah Colvin MD Work Phone: [facility] 11-06-2024 15:30-0400 Diastolic blood pressure 75 mm[Hg] Noah Colvin MD Work Phone: [facility] 11-06-2024 15:30-0400 Heart rate 70 /min Noah Colvin MD Work Phone: [facility] 11-06-2024 15:30-0400 Respiratory rate 15 /min Noah Colvin MD Work Phone: [facility] 11-06-2024 15:30-0400 SaO2% (BldA) [Mass fraction] 99 % Noah Colvin MD Work Phone: [facility] 11-06-2024 15:30-0400 Systolic blood pressure 109 mm[Hg] Noah Colvin MD Work Phone: [facility] 10-31-2024 19:12-0400 Body temperature 37 Noah Colvin MD Work Phone: [facility] 10-31-2024 19:05-0400 Body temperature 37.0 degrees Celsius [facility] Comment on above: Performed By: #### [id number] #### MIRANDA Sims ([id number]) [facility] ([facility]) [address] [place] [address] 10-31-2024 16:43-0400 Body height 172.7 cm Noah Colvin MD Work Phone: [facility] 10-31-2024 16:43-0400 Body mass index (BMI) [Ratio] 39.53 kg/m2 Noah Colvin MD Work Phone: [facility] 10-31-2024 16:43-0400 Body weight 117.94 kg Noah Colvin MD Work Phone: [facility] 02-23-2024 21:49-0400 Blood Pressure Location RAQUEL LOAIZA MD [facility] 02-23-2024 21:49-0400 Blood Pressure Method RAQUEL LOAIZA MD [facility] 02-23-2024 21:49-0400 Body height 172.7 cm RAQUEL LOAIZA MD [facility] 02-23-2024 21:49-0400 Body temperature 96.98 [degF] RAQUEL LOAIZA MD [facility] 02-23-2024 21:49-0400 Body weight 104.5 kg RAQUEL LOAIZA MD [facility] 02-23-2024 21:49-0400 Diastolic Blood Pressure Non-Invasive 78 mm[Hg] RAQUEL LOAIZA MD [facility] 02-23-2024 21:49-0400 Heart rate 98 /min RAQUEL LOAIZA MD [facility] 02-23-2024 21:49-0400 Respiratory rate 16 /min RAQUEL LOAIZA MD [facility] 02-23-2024 21:49-0400 Systolic Blood Pressure Non-Invasive 130 mm[Hg] RAQUEL LOAIZA MD [facility] Encounters Encounter Date Encounter Type Care Provider Facility Start: 10-31-2024 End: 11-06-2024 [facility] above: Displaced comminuted fracture of shaft of right fibula, initial encounter for closed fracture (Primary Dx); Alcohol use; Insomnia, unspecified type; Cigarette smoker; Drug-induced constipation Start: 10-31-2024 End: 10-31-2024 Emergency department patient visit [facility] Start: 03-27-2024 End: 03-27-2024 Emergency department patient visit German Zhang Facility:[facility] Start: 02-23-2024 End: 02-23-2024 Emergency department patient visit RAQUEL LOAIZA MD [facility] Start: 09-02-2023 Emergency department patient visit Facility:[facility] Procedures Date Procedure Procedure Detail Performing Clinician Start: 11-03-2024 Blood count complete automated Sushma Lopez PA-C Work Phone: Start: 11-02-2024 Renal function panel Ra garry Fitzgerald PA-C Work Phone: Start: 11-01-2024 PULSE OXIMETRY, CONTINUOUS Davis Echols DO Work Phone: Start: 11-01-2024 XR tomography Unspec ified body region Jhonny Bullock MD Work Phone: Start: 11-01-2024 End: 11-01-2024 Open tx distal fibular fracture lat malleolus Ike Stuart MD Work Phone: Start: 11-01-2024 Renal function panel Johnathon Shabazz MD Work Phone: Start: 11-01-2024 Drug tst prsmv instr mnt chem analyzers pr date Edna Choudhary PA-C Work Phone: Start: 11-01-2024 Ct cervical spine w/ o contrast material Edna NOLASCO-C Work Phone: Start: 11-01-2024 CT Thoracic spine WO contrast Edna NOLASCO-C Work Phone: Start: 11-01-2024 Ct thorax w/contrast material Edna NOLASCO-C Work Phone: Start: 10-31-2024 Blood typing serolog ic rh (d) Jhonny Bullock MD Work Phone: Start: 10-31-2024 Prothrombin time Jhonny Bullock MD Work Phone: Start: 10-31-2024 Ct head/brain w/o co ntrast material Noah Colvin MD Work Phone: Start: 10-31-2024 Ct lower extremity w /o contrast material Jhonny Bullock MD Work Phone: Start: 10-31-2024 Radex ankle complete minimum 3 views Noah Colvin MD Work Phone: Start: 10-31-2024 Assay of troponin quantitative Noah Colvin MD Work Phone: Start: 10-31-2024 Comprehensive metabo lic panel Noah Colvin MD Work Phone: Start: 10-31-2024 Ethanol [Mass/volume ] in Serum or Plasma Noah Colvin MD Work Phone: Start: 10-31-2024 Troponin I.cardiac p humberto - Serum or Plasma by High sensitivity method Noah Colvin MD Work Phone: Start: 10-31-2024 Radiologic exam ches t single view Francisco Ogden MD Work Phone: Start: 10-31-2024 End: 10-31-2024 Radiologic exam knee complete 4/more views Francisco Ogden MD Work Phone: Start: 10-31-2024 Glucose quantitative blood xcpt reagent strip Noah Colvin MD Work Phone: Start: 10-31-2024 Ecg routine ecg w/le ast 12 lds trcg only w/o i&r Noah Colvin MD Work Phone: Plan of Treatment Date Care Activity Detail Author Start: 2043 Zoster Vaccines (1 o f 2) Zoster Vaccines (1 of 2) [facility] Start: 01-28-2025 Influenza vaccination Influenz a Vaccine (Season Ended) [facility] Start: 11-20-2024 End: 11-20-2024 Patient encounter procedure 11/20/2024 1:00 PM EDT Office Visit [facility] [id number] [facility] [address]th [place] [id number] Toña Castillo PA-C [id number] [place] [address] [facility] Start: 01-29-2024 COVID-19 Vaccine ( season) COVID-19 Vaccine ( season) [facility] Start: 07-13-2020 Pneumococcal Vaccine : Pediatrics and At-Risk Adult Patients (2 of 2 - PCV) Pneumococcal Vaccine: Pediatrics and At-Risk Adult Patients (2 of 2 - PCV) [facility] Start: 2015 DTaP/Tdap/Td Vaccine s (1 - Tdap) DTaP/Tdap/Td Vaccines (1 - Tdap) [facility] Start: 2012 Hepatitis B Vaccines (1 of 3 - 19+ 3-dose series) Hepatitis B Vaccines (1 of 3 - 19+ 3-dose series) [facility] Start: 2011 Hepatitis C screening Hepatitis C Sc reening [facility] Start: 2006 Varicella vaccination Varicell a Vaccines (1 of 2 - 13+ 2-dose series) [facility] Start: 1994 MMR Vaccines (1 of 1 - Standard series) MMR Vaccines (1 of 1 - Standard series) [facility] Start: 1993 HIV screening HIV Screening [facility] Start: 1993 Lipid panel Lipid Panel [facility] Start: 1993 Yearly Adult Physical Yearly Adult P hysical [facility] Electrocardiogram, 12-lead PRN ACS symptoms Electrocardiogram, 12-lead PRN ACS symptoms ECG Routine As needed until discontinued starting 11/01/2024 [facility] Work Phone: Comment on above: As needed until disc ontinued starting 11/01/2024 End: 11-01-2024 Incentive spirometry Instruct Incentive spirometry Instruct Respiratory Care Routine Once for 1 Occurrences starting 11/01/2024 until 11/01/2024 [facility] Service Area Work Phone: Comment on above: Once for 1 Occurrenc es starting 11/01/2024 until 11/01/2024 Payers Date Payer Category Payer Medicaid MEDICAID [id number] 2024 Medicaid [id number] 2024 Self-pay 1997 Unknown [id number] 1993 Unknown [id number] 1993 Unknown [id number] 1993 Unknown [id number] Unknown [id number] Social History Date Type Detail Facility Start: 02-23-2024 Tobacco smoking status Light tobacco smoker (finding) [facility] Start: 1995 Sex Assigned At Male [facility] Start: 11-01-2024 Tobacco smoking status NHIS Smokes tobacco daily [facility] History of tobacco use Cigarette Smoker [facility] Work Phone: Start: 11-01-2024 Tobacco use and exposure Smokeless tobacco non-user [facility] Work Phone: Start: 11-01-2024 Alcoholic beverage intake Current drinker of alcohol (finding) [facility] Work Phone: Start: 11-01-2024 End: 11-02-2024 History of Social function [facility] Start: 11-01-2024 End: 11-02-2024 [facility] Utilities [facility] Has the electric, [employer], oil, or water company threatened to shut off services in your home in past 12Mo Yes [facility] Within the last year , have you been afraid of your partner or ex-partner? No [facility] Work Phone: How often to you hav e a drink containing alcohol? 4 or more times a week [facility] Work Phone: How many standard dr inks containing alcohol do you have on a typical day? 7 to 9 [facility] Work Phone: How often do you hav e 6 or more drinks on 1 occasion? Weekly [facility] Work Phone: How hard is it for y ou to pay for the very basics like food, housing, medical care, and heating Not very hard [facility] (I/We) worried pablo er (my/our) food would run out before (I/we) got money to buy more. Often true [facility] Work Phone: In the past 12 month s, has lack of transportation kept you from medical appointments or from getting medications? No [facility] Work Phone: Start: 10-31-2024 Gender identity Identifies as male gender (finding) [facility] Work Phone: Start: 10-22-2024 End: 11-01-2024 Exposure to SARS-CoV-2 (event) Not sure [facility] Work Phone: Medical Equipment Procedure Code Equipment Code Equipment Origin al Text Equipment Identifier Dates Device, Syndemos is Fixation, [place] Synchfix P5 - [id number] Start: 11-01-2024 Device, Syndemos is Fixation, [place] Synchfix P5 - [id number] Start: 11-01-2024 Plate, Fibula, Distal Lateral, 2.7/3.5mm 137mm 8h, Right - [id number] Start: 11-01-2024 Screw, Cortex 2. 7mm, T8, 20mm - [id number] Start: 11-01-2024 Screw, Cortex 2. 7mm, T8, 16mm - [id number] Start: 11-01-2024 Screw, Cortex 2. 7mm, T8, 22mm - [id number] Start: 11-01-2024 Screw, Cory 3.5 X 14 Ti - [id number] Start: 11-01-2024 Screw, Cory 3.5 X 16 Ti - [id number] Start: 11-01-2024 Screw, Cory 3.5 X 18 Ti - [id number] Start: 11-01-2024 Screw, Locking, 2.7mm, T8, 8mm - [id number] Start: 11-01-2024 Screw, Locking, 2.7mm, T8, 12mm - [id number] Start: 11-01-2024 Screw, Locking, 2.7mm, T8, 16mm - [id number] Start: 11-01-2024 Functional Status Date Assessment Result Facility 11-01-2024 Total score [AUDIT-C] 10 025 6:42 PM JANINET Emily Fernandez RN [facility] Work Phone: 11-01-2024 Patient Health Questionnaire 2 item (PHQ-2) [Reported] [facility] Work Phone: 10-31-2024 [place] - suicide s everity rating scale screener - recent [C-SSRS] [facility] Work Phone: 02-23-2024 Functional Status Assistive Device None [facility] 02-23-2024 Functional Status Standard Safet y ID band on, Allergy Band on, Call device within reach, Bed in low position, Wheels locked, personal items within reach, Bedside Cart Locked, Visitor at bedside [facility] Work Phone: Mental Status Date Assessment Result Facility 02-23-2024 Mental Status Orientation Oriented x 4 [facility] [place] 02-23-2024 Mental Status [facility] Clinical Notes 02-23-2024 to 11-06-2024 Enoch Jean-Baptiste RN - 11/06/2024 4:19 PM EDSharon Jean-Baptiste RN - 11/06/2024 4:19 PM EDTRagarry Fitzgerald PA-C - 11/06/2024 1:48 PM EDTCare Plan - Enoch Jean-Baptiste RN - 11/06/2024 11:26 AM EDT Note Date & Type Note Facility 11-06-2024 Nurse Note Patient has been discharged to [facility] via community care ambulance. Vitals stable, all IV's removed and after visit summary reviewed with patient. [facility] 11-06-2024 Nurse Note Patient has been discharged to [facility] via community care ambulance. Vitals stable, all IV's removed and after visit summary reviewed with patient. documented in this encounter [facility] Work Phone: 11-06-2024 Hospital course Narrative Discharge Diagnosis Displaced comminuted fracture of shaft of right fibula, initial encounter for closed fracture Issues Requiring Follow-Up Right distal fibula fracture, right ankle repair Test Results Pending At Discharge Pending Labs No current pending labs. Hospital Course 29 yo M s/p seizure with fall. Imaging revealed R fibula fracture. Hx of polysubstance use. Neuro consulted due to concern for seizure activity. Recommend likely substance related with no further workup or interventions necessary, no follow up needed. Ortho consulted, planning for surgical intervention, cleared for OR by trauma. Admitted to [facility]. Taken to OR on 11/01 for R ankle ORIF. Patient to follow up outpatient in [address] Stuart. PT/OT worked with patient while admitted, pt discharged to SNF at time of discharge. Pt sent with scripts and meds continued, follow up appointments placed. Pain well controlled, eating and drinking well. Pt verbalized understanding of discharge instructions. Pertinent Physical Exam At Time of Discharge Physical Exam Constitutional: General: He is not in acute distress. Appearance: He is not toxic-appearing. HENT: Head: Normocephalic and atraumatic. Mouth/Throat: Mouth: Mucous membranes are moist. Eyes: Extraocular Movements: Extraocular movements intact. Conjunctiva/sclera: Conjunctivae normal. Pulmonary: Effort: Pulmonary effort is normal. No respiratory distress. Breath sounds: Normal breath sounds. Comments: On room air Abdominal: General: There is no distension. Musculoskeletal: Comments: Right lower extremity in SLS, able to wiggle toes, sensation intact, dorsi/plantarflexion of toes right lower extremity 3/5, limited due to splint. Left lower extremity 5/5, sensation intact. Moving all extremities spontaneously Skin: General: Skin is warm and dry. Capillary Refill: Capillary refill takes less than 2 seconds. Neurological: Mental Status: He is alert and oriented to person, place, and time. Comments: GCS 15 Psychiatric: Mood and Affect: Mood normal. Behavior: Behavior normal. Home Medications Medication List START taking these medications acetaminophen 325 mg tablet; Commonly known as: Tylenol; Take 3 tablets (975 mg) by mouth every 6 hours. calcium carbonate-vitamin D3 600 mg-10 mcg (400 unit) tablet; Take 1 tablet by mouth 2 times a day. enoxaparin 30 mg/0.3 mL syringe; Commonly known as: Lovenox; Inject 0.3 mL (30 mg) under the skin every 12 hours. folic acid 1 mg tablet; Commonly known as: Folvite; Take 1 tablet (1 mg) by mouth once daily.; Start taking on: November 07, 2024 melatonin 3 mg tablet; Take 1 tablet (3 mg) by mouth as needed at bedtime for sleep. methocarbamol 500 mg tablet; Commonly known as: Robaxin; Take 1 tablet (500 mg) by mouth every 6 hours. multivitamin with minerals tablet; Take 1 tablet by mouth once daily.; Start taking on: November 07, 2024 nicotine 14 mg/24 hr patch; Commonly known as: Nicoderm CQ; Place 1 patch over 24 hours on the skin once daily.; Start taking on: November 07, 2024 oxyCODONE 5 mg immediate release tablet; Commonly known as: Roxicodone; Take 1 tablet (5 mg) by mouth every 6 hours if needed for severe pain (7 - 10) for up to 3 days. PHENobarbital 64.8 mg tablet; Commonly known as: Luminal; Take 1 tablet (64.8 mg) by mouth every 6 hours if needed (RASS >=2 (agitation) AND/OR >=2 of the LYNDA symptoms (SBP > 160 mmHG, HR >110bpm, diaphoresis, tremors, hallucinations)). polyethylene glycol 17 gram packet; Commonly known as: Glycolax, Miralax; Take 17 g by mouth once daily.; Start taking on: November 07, 2024 thiamine 100 mg tablet; Commonly known as: Vitamin B-1; Take 1 tablet (100 mg) by mouth once daily.; Start taking on: November 07, 2024 Outpatient Follow-Up Future Appointments Date Time Provider Department Center 11/20/2024 1:00 PM Toña Castillo PA-C [id number] Academic Anna Fitzgerald PA-C documented in this encounter [facility] Work Phone: 11-06-2024 Plan of care note The patient's goals for the shift include The clinical goals for the shift include remain free from falls [facility] Work Phone: 11-06-2024 Miscellaneous Notes The patient's goals for the shift include The clinical goals for the shift include remain free from falls The patient's goals for the shift include The clinical goals for the shift include pain control CHW met with patient at bedside, Patient stated that he is interested in community resources in [facility], Patient stated he received out to a facility for rehab [place] near his area after discharge. CHW provided a [facility] resources to assist with food housing financial assistance etc, [employer] for guidances and support, Patient mentioned applying for disability. CHW provided disability resources information, including steps on how to apply online. CHW also provided the rehab center patient is interested contact information. Community Resource Name: Phone Number: Staff Member: Discussed the following topics on behalf of the patient: [] Behavioral Health Assistance [] Case Management [] Customer Engagement Analyst Assistance [] Digital Equity Assistance [] Dental Health Assistance [] Education Assistance [] Employment Assistance [] Financial Strain Relief Assistance [x] Food Insecurity Assistance [] Healthcare Coverage Assistance [x] Housing Stability Assistance [] IP Violence Relief Assistance [] Legal Assistance [] Physical Activity Assistance [] Social Connection Assistance [] Stress Relief Assistance [] Substance Abuse Assistance [] Transportation Assistance [] Utility Assistance [x] Other: [insert comment here] Next Steps: MARIA DE JESUS Foster The patient's goals for the shift include The clinical goals for the shift include patient will remain free from injuries Problem: Skin Goal: Decreased wound size/increased tissue granulation at next dressing change Outcome: Progressing Goal: Participates in plan/prevention/treatment measures Outcome: Progressing Goal: Prevent/manage excess moisture Outcome: Progressing Goal: Prevent/minimize sheer/friction injuries Outcome: Progressing Goal: Promote/optimize nutrition Outcome: Progressing Goal: Promote skin healing Outcome: Progressing Problem: Safety - Adult Goal: Free from fall injury Outcome: Progressing Problem: Discharge Planning Goal: Discharge to home or other facility with appropriate resources Outcome: Progressing Problem: Chronic Conditions and Co-morbidities Goal: Patient's chronic conditions and co-morbidity symptoms are monitored and maintained or improved Outcome: Progressing Problem: Nutrition Goal: Nutrient intake appropriate for maintaining nutritional needs Outcome: Progressing The patient's goals for the shift include The clinical goals for the shift include Pt pain will be contolled The patient's goals for the shift include The clinical goals for the shift include pts pain will be controlled through shift Problem: Skin Goal: Decreased wound size/increased tissue granulation at next dressing change Outcome: Progressing Flowsheets (Taken 11/02/2024213) Decreased wound size/increased tissue granulation at next dressing change: Promote sleep for wound healing Goal: Participates in plan/prevention/treatment measures Outcome: Progressing Flowsheets (Taken 11/02/2024213) Participates in plan/prevention/treatment measures: Increase activity/out of bed for meals Elevate heels Goal: Prevent/manage excess moisture Outcome: Progressing Flowsheets (Taken 11/02/2024213) Prevent/manage excess moisture: Monitor for/manage infection if present Cleanse incontinence/protect with barrier cream Goal: Prevent/minimize sheer/friction injuries Outcome: Progressing Flowsheets (Taken 11/02/2024213) Prevent/minimize sheer/friction injuries: HOB 30 degrees or less Turn/reposition every 2 hours/use positioning/transfer devices Goal: Promote/optimize nutrition Outcome: Progressing Flowsheets (Taken 11/02/2024213) Promote/optimize nutrition: Assist with feeding Monitor/record intake including meals Goal: Promote skin healing Outcome: Progressing Flowsheets (Taken 11/02/2024213) Promote skin healing: Assess skin/pad under line(s)/device(s) Turn/reposition every 2 hours/use positioning/transfer devices 29 yo M s/p seizure with fall. Imaging revealed R fibula fracture. Hx of polysubstance use. Neuro consulted due to concern for seizure activity. Recommend likely substance related with no further workup or interventions necessary, no follow up needed. Ortho consulted, planning for surgical intervention, cleared for OR by trauma. Admitted to [facility]. Taken to OR on 11/01 for R ankle ORIF. Patient to follow up outpatient in [address] Stuart. PT/OT worked with patient while admitted, pt discharged to SNF at time of discharge. Pt sent with scripts and meds continued, follow up appointments placed. Pain well controlled, eating and drinking well. Pt verbalized understanding of discharge instructions. Neurology Final Assessment and Plan: # Convulsive syncope in the setting of polysubstance use and dehydration Javed Reyes is a 29 y.o. male with a prior history of ADHD and current polysubstance use (alcohol, tobacco, cocaine, marijuana) presenting to ED for first-time seizure-like event for which neurology was consulted. As noted in the history above patient recently involved with heavy binge drinking as well as cocaine/marijuana and tobacco use and appears severely dehydrated in the heat today waiting for his friend to pick him up when he had a spell loss of consciousness with reported convulsions. Patient is certainly at risk for provoked seizures in the setting of heavy binge drinking although does appear prodromal symptoms likely in the setting of severe dehydration could have contributed to a convulsive syncopal spell, will defer further syncope workup to primary. Given the brief duration and return to baseline I estimate this is more likely although provoked seizure certainly still possible. Regardless this is the first time event in the setting of severe substance use no further testing at this time no indication for antiepileptic therapy at this time. Patient is currently admitted under trauma/Ortho for correction of right ankle fracture. Counseled patient on the dangers of seizures as well as current substance abuse he is open to receiving counseling/resources and willing to stop at this time - resources to be provided per primary. Neurology will sign off. documented in this encounter [facility] Work Phone: 11-06-2024 History of Presen t illness Narrative [employer] Note: Patient discussed with medical team (trauma PA), per trauma team patient is medically ready. Discharge dispo: Plan for patient to discharge to [facility]. TCC met with patient introduced self and role to discuss discharge plan. TCC informed patient that he was accepted by [facility] and able to discharge to facility. Patient expressed wanting to discharge [facility] stating he wants to be in [facility] near his friends. TCC informed patient there has not been an official acceptance from [facility]. Patient requested for TCC to follow up with facility stating he spoke with facilities admit team who stated facility is able to accept patient. TCC sent updated clinicals to patient's FOC and requested update on acceptance. Yeny Tomas RN BSN [employer] [facility] TRAUMA SERVICE - PROGRESS NOTE Patient Name: Javed Reyes Admit Date: [id number] : 1995 AGE: 29 y.o. GENDER: male MECHANISM OF INJURY: Patient is a 29 year old male who presented after intoxication and being found down. Concern for seizure. Patient was brought to ED and found to have right distal fibular fracture. LOC (yes/no?): yes Anticoagulant / Anti-platelet Rx? (for what dx?): denies Referring Facility Name (N/A for scene EMR run): n/a INJURIES: Right distal fibular fracture OTHER MEDICAL PROBLEMS: Possible seizure Substance abuse INCIDENTAL FINDINGS: None PROCEDURES: ORIF right ankle with syndesmotic fixation 11/[address] Stuart TODAY'S ASSESSMENT AND PLAN OF CARE: ## right distal fibular fx - ortho consulted, recs - ORIF right ankle with syndesmotic fixation 11/01 - NWB RLE in SLS - follow up [address] Stuart - IV pain medications discontinued 11/05 - PT/OT -> no PT or OT needed at discharge ## LOC with reported convulsions - concern for seizure activity - neurology consulted, recs: - possible provoked seizure - pt with history of multiple substance use, likely cause vs or combination with dehydration - no further workup needed - no need for AEDs ## anesthesia concerns pre-op and intra-op - concern for SAL - pt ordered for continuous pulse ox post-op - 2L NC this morning 11/05 - wean as tolerated - concern for thyroid disease - TSH within normal limits ## FEN/GI - regular diet - BR ## DVT ppx - lovenox - SCD to left leg Dispo: continue RNF. Med ready. Patient homeless, can possibly get SNF placement per Pt seen and discussed with attending Dr. Navarro Total face to face time spent with patient/family of 20 minutes, with >50% of the time spent discussing plan of care/management, counseling/educating on disease processes, explaining results of diagnostic testing. Anna Fitzgerald PA-C Trauma, Critical Care, Acute Care Surgery Floor: [id number] TSICU: [id number] CHIEF COMPLAINT / OVERNIGHT EVENTS: No acute events overnight. Pt this morning notes that pain has improved, pain with getting up but moving a little better. Pt still noting significant pain with moving. Eating and drinking well. MEDICAL HISTORY / ROS: Admission history and ROS reviewed. Pertinent changes as follows: PHYSICAL EXAM: Heart Rate: [63-93] Temp: [36 C (96.8 F)-36.9 C (98.4 F)] Resp: [17-18] BP: (117-138)/(80-90) SpO2: [96 %-99 %] Physical Exam Vitals reviewed. Constitutional: General: He is not in acute distress. HENT: Head: Normocephalic and atraumatic. Nose: Nose normal. Mouth/Throat: Mouth: Mucous membranes are moist. Eyes: Extraocular Movements: Extraocular movements intact. Conjunctiva/sclera: Conjunctivae normal. Cardiovascular: Rate and Rhythm: Normal rate. Pulmonary: Effort: Pulmonary effort is normal. No respiratory distress. Breath sounds: Normal breath sounds. Comments: On 2L NC Abdominal: General: There is no distension. Musculoskeletal: Comments: SLS on right lower extremity. Can wiggle toes bilaterally, moving extremities spontaneously with exception of right leg, limited due to splint. Skin: General: Skin is warm and dry. Neurological: Mental Status: He is alert and oriented to person, place, and time. Comments: GCS 15 Psychiatric: Mood and Affect: Mood normal. Behavior: Behavior normal. IMAGING SUMMARY: (summary of new imaging findings, not a copy of dictation) LABS: Results from last 7 days Lab Units 11/03/24 1110 11/02/24 0811/01/24 11110/31/24 1905 WBC AUTO x10*3/uL 8.0 13.9* 10.2 13.8* HEMOGLOBIN g/dL 13.6 13.6 15.2 16.3 HEMATOCRIT % 42.7 41.3 45.5 45.9 PLATELETS AUTO x10*3/uL 174 209 204 230 NEUTROS PCT AUTO % -- -- -- 74.6 LYMPHS PCT AUTO % -- -- -- 16.5 MONOS PCT AUTO % -- -- -- 7.0 EOS PCT AUTO % -- -- -- 0.7 Results from last 7 days Lab Units 10/31/24 2228 APTT seconds 26 INR 1.0 Results from last 7 days Lab Units 11/02/24 0818 11/01/24 1113 10/31/24 1905 SODIUM mmol/L 138 137 135* POTASSIUM mmol/L 4.2 4.5 4.4 CHLORIDE mmol/L 100 102 98 CO2 mmol/L 28 28 29 BUN mg/dL 14 13 15 CREATININE mg/dL 1.02 0.90 1.14 CALCIUM mg/dL 8.9 9.2 10.1 PROTEIN TOTAL g/dL -- -- 8.2 BILIRUBIN TOTAL mg/dL -- -- 0.6 ALK PHOS U/L -- -- 89 ALT U/L -- -- 39 AST U/L -- -- 24 GLUCOSE mg/dL 170* 102* 101* Results from last 7 days Lab Units 10/31/24 1905 BILIRUBIN TOTAL mg/dL 0.6 I have reviewed all medications, laboratory results, and imaging pertinent for today's encounter. [facility] TRAUMA SERVICE - PROGRESS NOTE Patient Name: Javed Reyes Admit Date: [id number] : 1995 AGE: 29 y.o. GENDER: male MECHANISM OF INJURY: Patient is a 29 year old male who presented after intoxication and being found down. Concern for seizure. Patient was brought to ED and found to have right distal fibular fracture. LOC (yes/no?): yes Anticoagulant / Anti-platelet Rx? (for what dx?): denies Referring Facility Name (N/A for scene EMR run): n/a INJURIES: Right distal fibular fracture OTHER MEDICAL PROBLEMS: Possible seizure Substance abuse INCIDENTAL FINDINGS: None PROCEDURES: ORIF right ankle with syndesmotic fixation 11/[address] Stuart TODAY'S ASSESSMENT AND PLAN OF CARE: ## right distal fibular fx - ortho consulted, recs - ORIF right ankle with syndesmotic fixation 11/01 - NWB RLE in [facility] - follow up [address] Stuart - PT/OT -> no PT or OT needed at discharge ## LOC with reported convulsions - concern for seizure activity - neurology consulted, recs: - possible provoked seizure - pt with history of multiple substance use, likely cause vs or combination with dehydration - no further workup needed - no need for AEDs ## anesthesia concerns pre-op and intra-op - concern for SAL - pt ordered for continuous pulse ox post-op - 2L NC this morning 11/04 - wean as tolerated - concern for thyroid disease - TSH within normal limits ## FEN/GI - regular diet - BR ## DVT ppx - lovenox - SCD to left leg Dispo: continue RNF. Med ready. Patient homeless, working on dispo plan. Likely DC Tuesday to Javed's home vs friend's house Pt discussed with attending Dr. Dunlap Total face to face time spent with patient/family of 20 minutes, with >50% of the time spent discussing plan of care/management, counseling/educating on disease processes, explaining results of diagnostic testing. Anna Fitzgerald PA-C Trauma, Critical Care, Acute Care Surgery Floor: [id number] TSICU: [id number] CHIEF COMPLAINT / OVERNIGHT EVENTS: No acute events overnight. Pt this morning notes pain medicines help control pain, eating well. Denies any concerns at present MEDICAL HISTORY / ROS: Admission history and ROS reviewed. Pertinent changes as follows: PHYSICAL EXAM: Heart Rate: [73-97] Temp: [35.4 C (95.7 F)-36.5 C (97.7 F)] Resp: [17-19] BP: (108-155)/(73-82) SpO2: [94 %-99 %] Physical Exam Vitals reviewed. Constitutional: General: He is not in acute distress. HENT: Head: Normocephalic and atraumatic. Nose: Nose normal. Mouth/Throat: Mouth: Mucous membranes are moist. Eyes: Extraocular Movements: Extraocular movements intact. Conjunctiva/sclera: Conjunctivae normal. Cardiovascular: Rate and Rhythm: Normal rate. Pulmonary: Effort: Pulmonary effort is normal. No respiratory distress. Breath sounds: Normal breath sounds. Comments: On 2L NC Abdominal: General: There is no distension. Palpations: Abdomen is soft. Tenderness: There is no abdominal tenderness. Musculoskeletal: Comments: SLS on right lower extremity. Right lower extremity toes 2/5 with dorsi/plantarflexion, able to wiggle toes. Dorsi/plantarflexion 5/5 left lower extremity. Gripper Machine Operator strength 5/5 bilaterally. sensation intact throughout all extremities, moving all extremities spontaneously Skin: General: Skin is warm and dry. Neurological: Mental Status: He is alert and oriented to person, place, and time. Comments: GCS 15 Psychiatric: Mood and Affect: Mood normal. Behavior: Behavior normal. IMAGING SUMMARY: (summary of new imaging findings, not a copy of dictation) LABS: Results from last 7 days Lab Units 11/03/24 1110 11/02/24 0818 11/01/24 11110/31/24 1905 WBC AUTO x10*3/uL 8.0 13.9* 10.2 13.8* HEMOGLOBIN g/dL 13.6 13.6 15.2 16.3 HEMATOCRIT % 42.7 41.3 45.5 45.9 PLATELETS AUTO x10*3/uL 174 209 204 230 NEUTROS PCT AUTO % -- -- -- 74.6 LYMPHS PCT AUTO % -- -- -- 16.5 MONOS PCT AUTO % -- -- -- 7.0 EOS PCT AUTO % -- -- -- 0.7 Results from last 7 days Lab Units 10/31/24 2228 APTT seconds 26 INR 1.0 Results from last 7 days Lab Units 11/02/24 0818 11/01/24 1113 10/31/24 1905 SODIUM mmol/L 138 137 135* POTASSIUM mmol/L 4.2 4.5 4.4 CHLORIDE mmol/L 100 102 98 CO2 mmol/L 28 28 29 BUN mg/dL 14 13 15 CREATININE mg/dL 1.02 0.90 1.14 CALCIUM mg/dL 8.9 9.2 10.1 PROTEIN TOTAL g/dL -- -- 8.2 BILIRUBIN TOTAL mg/dL -- -- 0.6 ALK PHOS U/L -- -- 89 ALT U/L -- -- 39 AST U/L -- -- 24 GLUCOSE mg/dL 170* 102* 101* Results from last 7 days Lab Units 10/31/24 1905 BILIRUBIN TOTAL mg/dL 0.6 I have reviewed all medications, laboratory results, and imaging pertinent for today's encounter. Javed Reyes is a 29 y.o. male on day 2 of admission presenting with Displaced comminuted fracture of shaft of right fibula, initial encounter for closed fracture. Subjective SW stopped by pt's room after VM message left on phone. Pt had received VM and thanked SW for stopping by. Pt confirmed his housing situation and SW educated pt about PT/OT recommendations and SNF's base their ability to accept pts. Pt voiced understanding and reported today he tried went to the bathroom and had a hard time putting any weight on his foot and the pain is bad. SW advised that he talk with the doctor again and PT/OT. No return call or note in [facility] regarding referral to [facility]. Pt was updated regarding this agency for those who need medical care and in a housing crisis. Objective Physical Exam Assessment & Plan SW will continue to follow pt for a safe discharge. SW will update Trauma Team regarding pt's pain and feelings about needing PT. CHRISTINE VARGAS [facility] TRAUMA SERVICE - PROGRESS NOTE Patient Name: Javed Reyes Admit Date: [id number] : 1995 AGE: 29 y.o. GENDER: male MECHANISM OF INJURY: Patient is a 29 year old male who presented after intoxication and being found down. Concern for seizure. Patient was brought to ED and found to have right distal fibular fracture. LOC (yes/no?): yes Anticoagulant / Anti-platelet Rx? (for what dx?): denies Referring Facility Name (N/A for scene EMR run): n/a INJURIES: Right distal fibular fracture OTHER MEDICAL PROBLEMS: Possible seizure Substance abuse INCIDENTAL FINDINGS: None PROCEDURES: ORIF right ankle with syndesmotic fixation 11/[address] Stuart TODAY'S ASSESSMENT AND PLAN OF CARE: ## right distal fibular fx - ortho consulted, recs - ORIF right ankle with syndesmotic fixation 11/01 - NWB RLE in [facility] - follow up [address] Stuart - PT/OT -> no PT or OT needed at discharge ## LOC with reported convulsions - concern for seizure activity - neurology consulted, recs: - possible provoked seizure - pt with history of multiple substance use, likely cause vs or combination with dehydration - no further workup needed - no need for AEDs ## anesthesia concerns pre-op and intra-op - concern for SAL - pt ordered for continuous pulse ox post-op: satting well - concern for thyroid disease - TSH within normal limits ## FEN/GI - regular diet - BR ## DVT ppx - lovenox - SCD to left leg Dispo: continue RNF. Med ready. Patient homeless, working on dispo plan. Likely DC Tuesday to Javed's home vs friend's house Pt discussed with attending Dr. Dunlap Total face to face time spent with patient/family of 25 minutes, with >50% of the time spent discussing plan of care/management, counseling/educating on disease processes, explaining results of diagnostic testing. Anna Fitzgerald PA-C Trauma, Critical Care, Acute Care Surgery Floor: [id number] TSICU: [id number] CHIEF COMPLAINT / OVERNIGHT EVENTS: No acute events overnight. MEDICAL HISTORY / ROS: Admission history and ROS reviewed. Pertinent changes as follows: PHYSICAL EXAM: Heart Rate: [64-96] Temp: [35.6 C (96.1 F)-36.6 C (97.9 F)] Resp: [16-17] BP: (113-125)/(73-83) SpO2: [93 %-98 %] Physical Exam Vitals reviewed. Constitutional: General: He is not in acute distress. HENT: Head: Normocephalic and atraumatic. Nose: Nose normal. Mouth/Throat: Mouth: Mucous membranes are moist. Eyes: Extraocular Movements: Extraocular movements intact. Conjunctiva/sclera: Conjunctivae normal. Cardiovascular: Rate and Rhythm: Normal rate. Pulmonary: Effort: Pulmonary effort is normal. No respiratory distress. Breath sounds: Normal breath sounds. Comments: On room air, satting well Abdominal: General: There is no distension. Palpations: Abdomen is soft. Musculoskeletal: Comments: Able to wiggle toes right lower extremity. Dorsi/plantarflexion 5/5 left lower extremity. Gripper Machine Operator strength 5/5 bilaterally. sensation intact throughout all extremities, moving all extremities spontaneously Skin: General: Skin is warm and dry. Neurological: Mental Status: He is alert and oriented to person, place, and time. Comments: GCS 15 Psychiatric: Mood and Affect: Mood normal. Behavior: Behavior normal. IMAGING SUMMARY: (summary of new imaging findings, not a copy of dictation) LABS: Results from last 7 days Lab Units 11/03/24 1110 11/02/24 0818 11/01/24 1113 10/31/24 1905 WBC AUTO x10*3/uL 8.0 13.9* 10.2 13.8* HEMOGLOBIN g/dL 13.6 13.6 15.2 16.3 HEMATOCRIT % 42.7 41.3 45.5 45.9 PLATELETS AUTO x10*3/uL 174 209 204 230 NEUTROS PCT AUTO % -- -- -- 74.6 LYMPHS PCT AUTO % -- -- -- 16.5 MONOS PCT AUTO % -- -- -- 7.0 EOS PCT AUTO % -- -- -- 0.7 Results from last 7 days Lab Units 10/31/24 2228 APTT seconds 26 INR 1.0 Results from last 7 days Lab Units 11/02/24 0818 11/01/24 1113 10/31/24 1905 SODIUM mmol/L 138 137 135* POTASSIUM mmol/L 4.2 4.5 4.4 CHLORIDE mmol/L 100 102 98 CO2 mmol/L 28 28 29 BUN mg/dL 14 13 15 CREATININE mg/dL 1.02 0.90 1.14 CALCIUM mg/dL 8.9 9.2 10.1 PROTEIN TOTAL g/dL -- -- 8.2 BILIRUBIN TOTAL mg/dL -- -- 0.6 ALK PHOS U/L -- -- 89 ALT U/L -- -- 39 AST U/L -- -- 24 GLUCOSE mg/dL 170* 102* 101* Results from last 7 days Lab Units 10/31/24 1905 BILIRUBIN TOTAL mg/dL 0.6 I have reviewed all medications, laboratory results, and imaging pertinent for today's encounter. Social Work Assessment: 11/02/24 1133 Discharge Planning Living Arrangements Other (Comment) (homeless) Support Systems Friends/neighbors Assistance Needed none Type of Residence Homeless Do you have animals or pets at home? No Who is requesting discharge planning? Provider Home or Post Acute Services None Expected Discharge Disposition Home Financial Resource Strain How hard is it for you to pay for the very basics like food, housing, medical care, and heating? Not very Housing Stability In the last 12 months, was there a time when you were not able to pay the mortgage or rent on time? Y At any time in the past 12 months, were you homeless or living in a penitentiary (including now)? Y Transportation Needs In the past 12 months, has lack of transportation kept you from medical appointments or from getting medications? no In the past 12 months, has lack of transportation kept you from meetings, work, or from getting things needed for daily living? No Patient Choice Provider Choice list and [facility] website (https://medicare.gov/care-comp are#search) for post-acute Quality and Resource Measure Data were provided and reviewed with: Patient PCP: NONE DME: none previously Pharmacy: none EMERGENCY DISPATCH OPERATOR spoke with the patient on this date. Patient is homeless and hopping from couch to couch. Patient came in due to a displaced right fibula fracture. PT saw and recommended no needs. PT explained that patient is nonweight bearing to the right leg but is doing well on the walker. EMERGENCY DISPATCH OPERATOR explained that this EMERGENCY DISPATCH OPERATOR can order a walker for the patient. Patient explained that hed be interested in going to a physical rehab at discharge. EMERGENCY DISPATCH OPERATOR explained that she could send out some referrals but that she cannot guarantee he will be accepted due to his age and the fact he doesn't have PT or OT needs. EMERGENCY DISPATCH OPERATOR texted patient an [place] and SNF list. Patient also agreed to blanket referral. Patient confirmed he would find a place to say if he cannot go to SNF or [place]. Patient tested positive for cocaine and cannibis. EMERGENCY DISPATCH OPERATOR spoke with him about it. 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 EMERGENCY DISPATCH OPERATOR offered substance abuse resources or a referral to [facility], Patient explained that he doesn't not think he needs any resources and that he will just stop cold turkey. EMERGENCY DISPATCH OPERATOR will continue to follow ADD 11/02/24 2:59PM EMERGENCY DISPATCH OPERATOR attempted to call patient again to discuss alternate discharge plans besides SNF/AR since patient doesn't have therapy needs. EMERGENCY DISPATCH OPERATOR was unable to reach patient via phone. EMERGENCY DISPATCH OPERATOR spoke with patient's PA about making a [facility]' referral for the patient. EMERGENCY DISPATCH OPERATOR will continue to follow LISA Mims, LAUREN-S Occupational Therapy Evaluation Patient Name: Javed Reyes Today's Date: 11/02/2024 Room: [facility] Time Calculation Start Time: 930 Stop Time: 940 Time Calculation (min): 10 min Assessment IP OT Assessment OT Assessment: Pt demos the ability to complete ADLs and functional transfers close to baseline at this time. He demos ability to maintain NWB and perform functional mobility with FWW with SBA. Although pt is homeless, he has no further acute OT needs at this time. Signing off. Barriers to Discharge Home: Social Drivers of Health considerations Social Drivers of Health Considerations: Housing insecurity Evaluation/Treatment Tolerance: Patient tolerated treatment well Medical Staff Made Aware: Yes End of Session Communication: Bedside nurse End of Session Patient Position: Bed, 3 rail up, Alarm on Plan: Inpatient Plan No Skilled OT: No acute OT goals identified OT Frequency: OT eval only OT Discharge Recommendations: No OT needed after discharge, No further acute OT Equipment Recommended upon Discharge: Wheeled walker OT Recommended Transfer Status: Stand by assist, Assist of 1 OT - OK to Discharge: Yes OT Assessment Barriers to Discharge: None Evaluation/Treatment Tolerance: Patient tolerated treatment well Medical Staff Made Aware: Yes Strengths: Capable of completing ADLs semi/independent, Attitude of self, Premorbid level of function Barriers to Participation: Financial security Subjective Current Problem: 1. Displaced comminuted fracture of shaft of right fibula, initial encounter for closed fracture Case Request Operating Room: ORIF, ANKLE Case Request Operating Room: ORIF, ANKLE calcium carbonate-vitamin D3 600 mg-10 mcg (400 unit) tablet General: Reason for Referral: syncope and ankle fracture - ORIF R ankle, syndesmotic fixation on 11/01/[address] Stuart Past Medical History Relevant to Rehab: polysubstance abuse including ETOH and cocaine Prior to Session Communication: Bedside nurse Patient Position Received: Bed, 3 rail up, Alarm on Family/Caregiver Present: No General Comment: Pt pleasant and agreeable to OT evaluation Precautions: LE Weight Bearing Status: Right Non-Weight Bearing Medical Precautions: Fall precautions Pain: Pain Assessment Pain Assessment: 0-10 0-10 (Numeric) Pain Score: 6 Pain Type: Surgical pain Pain Location: Ankle Pain Orientation: Right Pain Interventions: Repositioned Response to Interventions: Content/relaxed Objective Cognition: Overall Cognitive Status: Within Functional Limits Arousal/Alertness: Appropriate responses to stimuli Orientation Level: Oriented X4 Following Commands: Follows all commands and directions without difficulty Home Living: Type of Home: Homeless Home Adaptive Equipment: None Prior Function: Level of Hitchcock: Independent with ADLs and functional transfers, Independent with homemaking with ambulation ADL Assistance: Independent Homemaking Assistance: Independent Ambulatory Assistance: Independent Vocational: Unemployed Leisure: Making music, guitar, cooking Hand Dominance: Right Prior Function Comments: - falls IADL History: Homemaking Responsibilities: Yes Meal Prep Responsibility: Primary Laundry Responsibility: Primary Cleaning Responsibility: Primary Bill Paying/Finance Responsibility: Primary Shopping Responsibility: Primary Homemaking Comments: Currently homeless Current License: No Mode of Transportation: Bicycle Occupation: Unemployed Leisure and Hobbies: Making music, guitar, cooking ADL: Eating Assistance: Independent (Anticipated) Grooming Assistance: Independent (Anticipated - seated) Bathing Assistance: Minimal (Anticipated) UE Dressing Assistance: Independent LE Dressing Assistance: Stand by LE Dressing Deficit: Supervision/safety Toileting Assistance with Device: Stand by Toileting Deficit: Supervison/safety ADL Comments: Good adherence to NWB Activity Tolerance: Endurance: Tolerates 10 - 20 min exercise with multiple rests Balance: Dynamic Standing Balance Dynamic Standing-Balance Support: Bilateral upper extremity supported Dynamic Standing-Level of Assistance: Close supervision Dynamic Standing-Comments: FWW Static Sitting Balance Static Sitting-Balance Support: No upper extremity supported, Feet supported Static Sitting-Level of Assistance: Independent Static Sitting-Comment/Number of Minutes: EOB Static Standing Balance Static Standing-Balance Support: Bilateral upper extremity supported Static Standing-Level of Assistance: Distant supervision Static Standing-Comment/Number of Minutes: FWW Bed Mobility/Transfers: Bed Mobility Bed Mobility: Yes Bed Mobility 1 Bed Mobility 1: Supine to sitting, Sitting to supine Level of Assistance 1: Independent Bed Mobility Comments 1: increased pain with bed mobility Functional Mobility Functional Mobility Performed: Yes Functional Mobility 1 Surface 1: Level tile Device 1: Rolling walker Assistance 1: Close supervision Comments 1: in/out of bathroom, hopping on L LE and Transfers Transfer: Yes Transfer 1 Transfer From 1: Sit to, Stand to Transfer to 1: Stand, Sit Technique 1: Sit to stand, Stand to sit Transfer Device 1: Walker Transfer Level of Assistance 1: Close supervision Trials/Comments 1: SBA - cues for hand placement Transfers 2 Transfer From 2: Bed to Transfer to 2: Toilet Technique 2: (Ambulating) Transfer Device 2: Walker Transfer Level of Assistance 2: Close supervision Trials/Comments 2: Use of grab bar - cues for positioning IADL's: Homemaking Responsibilities: Yes Meal Prep Responsibility: Primary Laundry Responsibility: Primary Cleaning Responsibility: Primary Bill Paying/Finance Responsibility: Primary Shopping Responsibility: Primary Homemaking Comments: Currently homeless Current License: No Mode of Transportation: Bicycle Occupation: Unemployed Leisure and Hobbies: Making music, guitar, cooking Vision: Vision - Basic Assessment Current Vision: No visual deficits and Sensation: Light Touch: No apparent deficits Strength: Strength Comments: Pineda UYoselin WFL Perception: Inattention/Neglect: Appears intact Coordination: Movements are Fluid and Coordinated: Yes Hand Function: Hand Function Gross Grasp: Functional Coordination: Functional Extremities: RUE RUE : Within Functional Limits, LUE LUE: Within Functional Limits, , and Outcome Measures: [facility] Daily Activity Putting on and taking off regular lower body clothing: A little Bathing (including washing, rinsing, drying): A little Putting on and taking off regular upper body clothing: None Toileting, which includes using toilet, bedpan or urinal: A little Taking care of personal grooming such as brushing teeth: None Eating Meals: None Daily Activity - Total Score: 21 , OT Adult Other Outcome Measures 4AT: 4 AT - Education Documentation Body Mechanics, taught by Moshe Mclain OT at 11/02/2024 10:32 AM. Learner: Patient Readiness: Acceptance Method: Explanation, Demonstration Response: Verbalizes Understanding, Demonstrated Understanding Comment: ADLs and safety Precautions, taught by Moshe Mclain OT at 11/02/2024 10:32 AM. Learner: Patient Readiness: Acceptance Method: Explanation, Demonstration Response: Verbalizes Understanding, Demonstrated Understanding Comment: ADLs and safety ADL Training, taught by Moshe Mclain OT at 11/02/2024 10:32 AM. Learner: Patient Readiness: Acceptance Method: Explanation, Demonstration Response: Verbalizes Understanding, Demonstrated Understanding Comment: ADLs and safety Education Comments No comments found. 11/02/24 at 10:35 AM Moshe Mclain OT Rehab Office: [phone] Physical Therapy Physical Therapy Evaluation Patient Name: Javed Reyes Department: [place] [id number] Room: 8058/8058-A Today's Date: 11/02/2024 Time Calculation Start Time: 821 Stop Time: 834 Time Calculation (min): 13 min Assessment/Plan PT Assessment PT Assessment Results: Decreased mobility Rehab Prognosis: (No acute PT needs.) Barriers to Discharge Home: Social Drivers of Health considerations Social Drivers of Health Considerations: Housing insecurity (Pt reports he's currently homeless. PT reached out to for further follow up. Otherwise no acute PT/rehab needs.) Evaluation/Treatment Tolerance: Patient tolerated treatment well End of Session Communication: Bedside nurse Assessment Comment: 29 y.o. M s/p fall admitted for work up of seizure and s/p ORIF of R ankle. Demonstrating independent gait with use of a wheeled walker for NWB RLE. Currently without acute PT needs though patient noting housing insecurity. made are. End of Session Patient Position: Bed, 3 rail up, Alarm off, not on at start of session IP OR SWING BED PT PLAN Inpatient or Swing Bed: Inpatient PT Plan Treatment/Interventions: (No planned interventions.) PT Plan: Ongoing PT PT Eval Only Reason: No acute PT needs identified PT Frequency: PT eval only PT Discharge Recommendations: No further acute PT, No PT needed after discharge Equipment Recommended upon Discharge: Wheeled walker PT Recommended Transfer Status: Independent PT - OK to Discharge: Yes Subjective PT Visit Info: PT Received On: 11/02/24 General Visit Information: General Reason for Referral: ankle fx, seizure work up. Past Medical History Relevant to Rehab: 29 y.o. male with a prior history of ADHD and current polysubstance use (alcohol, tobacco, cocaine, marijuana) presenting to ED for first-time seizure-like event and fall with ankle fx. Now s/p ORIF R ankle, syndesmotic fixation on 11/01/24. Post op pain. Prior to Session Communication: Bedside nurse Patient Position Received: Bed, 3 rail up, Alarm off, not on at start of session Preferred Learning Style: verbal, auditory General Comment: Pt resting in bed upon entry. Pleasant and cooperative. Noting post op pain though willing to work with PT. Home Living: Home Living Type of Home: Homeless Lives With: (pt reports not having any assist.) Home Adaptive Equipment: None Home Living Comments: Pt reports not having any available assist. Prior Level of Function: Prior Function Per Pt/Caregiver Report Level of Hitchcock: Independent with ADLs and functional transfers ADL Assistance: Independent Homemaking Assistance: Independent Ambulatory Assistance: Independent Prior Function Comments: No concerns with mobility at baseline. Precautions: Precautions LE Weight Bearing Status: Right Non-Weight Bearing Medical Precautions: Fall precautions Objective Pain: Pain Assessment Pain Assessment: 0-10 0-10 (Numeric) Pain Score: 6 Pain Type: Acute pain, Surgical pain Pain Location: Ankle Pain Orientation: Right Cognition: Cognition Overall Cognitive Status: Within Functional Limits Orientation Level: Oriented X4 Attention: Within Functional Limits Memory: Within Funtional Limits Insight: Within function limits Impulsive: Within functional limits Processing Speed: Within funtional limits General Assessments: Activity Tolerance Endurance: Decreased tolerance for upright activites Activity Tolerance Comments: post op pain Sensation Light Touch: No apparent deficits Strength Strength Comments: BUE WFL. LLE WFL. RLE grossly 4/5. Strength Strength Comments: BUE WFL. LLE WFL. RLE grossly 4/5. Perception Inattention/Neglect: Appears intact Coordination Movements are Fluid and Coordinated: Yes Postural Control Postural Control: Within Functional Limits Static Sitting Balance Static Sitting-Level of Assistance: Close supervision Static Standing Balance Static Standing-Balance Support: Bilateral upper extremity supported (on a wheeled walker) Static Standing-Level of Assistance: Contact guard Functional Assessments: Bed Mobility Bed Mobility: Yes Bed Mobility 1 Bed Mobility 1: Supine to sitting, Sitting to supine Level of Assistance 1: Independent Transfers Transfer: Yes Transfer 1 Transfer From 1: Sit to, Stand to Transfer to 1: Stand, Sit Transfer Level of Assistance 1: Close supervision Ambulation/Gait Training Ambulation/Gait Training Performed: Yes Ambulation/Gait Training 1 Surface 1: Level tile Device 1: Rolling walker Assistance 1: Close supervision Quality of Gait 1: (Safe demonstration of NWB RLE with a wheeled walker. Demonstrated good BUE strength to compensate.) Comments/Distance (ft) 1: 20ft Outcome Measures: [facility] Basic Mobility Turning from your back to your side while in a flat bed without using bedrails: None Moving from lying on your back to sitting on the side of a flat bed without using bedrails: None Moving to and from bed to chair (including a wheelchair): None Standing up from a chair using your arms (e.g. wheelchair or bedside chair): None To walk in hospital room: A little Climbing 3-5 steps with railing: A little Basic Mobility - Total Score: 22 Education Documentation Precautions, taught by Milton Inman PT at 11/02/2024 9:18 AM. Learner: Patient Readiness: Acceptance Method: Explanation Response: Verbalizes Understanding Comment: Gait training/use of a walker for NWB RLE. Mobility Training, taught by Milton Inman PT at 11/02/2024 9:18 AM. Learner: Patient Readiness: Acceptance Method: Explanation Response: Verbalizes Understanding Comment: Gait training/use of a walker for NWB RLE. Education Comments No comments found. Pharmacy Medication History Review Javed Reyes is a 29 y.o. male admitted for Displaced comminuted fracture of shaft of right fibula, initial encounter for closed fracture. Pharmacy reviewed the patient's [id number] medications and allergies for accuracy. Medications ADDED: None Medications CHANGED: None Medications REMOVED: None The list below reflects the updated [employer] list. None The list below reflects the updated allergy list. Please review each documented allergy for additional clarification and justification. Allergies Reviewed by Anupam Ellis PharmD on 11/02/2024 No Known Allergies Patient accepts M2B at discharge. Sources: [facility]AS Pharmacy dispense history Patient Interview Good historian Care Everywhere Additional Comments: No recent dispense history per OAS report No recent pharmacy dispense history No recent chart review notes Patient denied taking any prescription medications, vitamins, supplements or OTCs [employer] Anuapm Ellis PharmD Transitions of Care Pharmacist 11/02/24 Secure Chat preferred If no response call [phone] or [employer] [facility] TRAUMA [facility] - PROGRESS NOTE Patient Name: Javed Reyes Admit Date: [id number] : 1995 AGE: 29 y.o. GENDER: male MECHANISM OF INJURY: Patient is a 29 year old male who presented after intoxication and being found down. Concern for seizure. Patient was brought to ED and found to have right distal fibular fracture. LOC (yes/no?): yes Anticoagulant / Anti-platelet Rx? (for what dx?): denies Referring Facility Name (N/A for scene EMR run): n/a INJURIES: Right distal fibular fracture OTHER MEDICAL PROBLEMS: Possible seizure Substance abuse INCIDENTAL FINDINGS: None PROCEDURES: ORIF right ankle with syndesmotic fixation 11/[address] Stuart TODAY'S ASSESSMENT AND PLAN OF CARE: ## right distal fibular fx - ortho consulted, recs - ORIF right ankle with syndesmotic fixation 11/01 - NWB RLE in [facility] - follow up [address] Stuart - PT/OT -> no PT or OT needed at discharge ## LOC with reported convulsions - concern for seizure activity - neurology consulted, recs: - possible provoked seizure - pt with history of multiple substance use, likely cause vs or combination with dehydration - no further workup needed - no need for AEDs ## anesthesia concerns pre-op and intra-op - concern for SAL - pt ordered for continuous pulse ox post-op: satting well - concern for thyroid disease - TSH within normal limits ## FEN/GI - regular diet - BR ## DVT ppx - lovenox - SCD to left leg Dispo: continue RNF, working on pain control Pt discussed with attending Dr. Dunlap Total face to face time spent with patient/family of 25 minutes, with >50% of the time spent discussing plan of care/management, counseling/educating on disease processes, explaining results of diagnostic testing. Anna Fitzgerald PA-C Trauma, Critical Care, Acute Care Surgery Floor: [id number] TSICU: [id number] CHIEF COMPLAINT / OVERNIGHT EVENTS: No acute events overnight. Pt this morning using walker to ambulate in room to bed. Pt notes when in bed pain is ok, however when moving pain gets significantly worse. Eating and drinking going well, pt requesting gatorade. No other questions or concerns at present. MEDICAL HISTORY / ROS: Admission history and ROS reviewed. Pertinent changes as follows: PHYSICAL EXAM: Heart Rate: [73-106] Temp: [36 C (96.8 F)-36.9 C (98.4 F)] Resp: [10-25] BP: (113-165)/(62-98) SpO2: [92 %-99 %] Physical Exam Vitals reviewed. Constitutional: General: He is not in acute distress. HENT: Head: Normocephalic and atraumatic. Nose: Nose normal. Mouth/Throat: Mouth: Mucous membranes are moist. Eyes: Extraocular Movements: Extraocular movements intact. Conjunctiva/sclera: Conjunctivae normal. Cardiovascular: Rate and Rhythm: Normal rate. Pulmonary: Effort: Pulmonary effort is normal. No respiratory distress. Breath sounds: Normal breath sounds. Comments: On room air, satting well Abdominal: General: There is no distension. Palpations: Abdomen is soft. Musculoskeletal: Comments: Able to wiggle toes right lower extremity, able to flex and extend right toes, 2/5 strength. Dorsi/plantarflexion 5/5 left lower extremity. Gripper Machine Operator strength 5/5 bilaterally. sensation intact throughout all extremities, moving all extremities spontaneously Skin: General: Skin is warm and dry. Neurological: Mental Status: He is alert and oriented to person, place, and time. Comments: GCS 15 Psychiatric: Mood and Affect: Mood normal. Behavior: Behavior normal. IMAGING SUMMARY: (summary of new imaging findings, not a copy of dictation) LABS: Results from last 7 days Lab Units 11/01/24 1113 10/31/24 1905 WBC AUTO x10*3/uL 10.2 13.8* HEMOGLOBIN g/dL 15.2 16.3 HEMATOCRIT % 45.5 45.9 PLATELETS AUTO x10*3/uL 204 230 NEUTROS PCT AUTO % -- 74.6 LYMPHS PCT AUTO % -- 16.5 MONOS PCT AUTO % -- 7.0 EOS PCT AUTO % -- 0.7 Results from last 7 days Lab Units 10/31/24 2228 APTT seconds 26 INR 1.0 Results from last 7 days Lab Units 11/01/24 1113 10/31/24 1905 SODIUM mmol/L 137 135* POTASSIUM mmol/L 4.5 4.4 CHLORIDE mmol/L 102 98 CO2 mmol/L 28 29 BUN mg/dL 13 15 CREATININE mg/dL 0.90 1.14 CALCIUM mg/dL 9.2 10.1 PROTEIN TOTAL g/dL -- 8.2 BILIRUBIN TOTAL mg/dL -- 0.6 ALK PHOS U/L -- 89 ALT U/L -- 39 AST U/L -- 24 GLUCOSE mg/dL 102* 101* Results from last 7 days Lab Units 10/31/24 1905 BILIRUBIN TOTAL mg/dL 0.6 I have reviewed all medications, laboratory results, and imaging pertinent for today's encounter. [facility] TRAUMA SERVICE - PROGRESS NOTE Patient Name: Javed Reyes Admit Date: 6030704 : 1995 AGE: 29 y.o. GENDER: male MECHANISM OF INJURY: Patient is a 29 year old male who presented after intoxication and being found down. Concern for seizure. Patient was brought to ED and found to have right distal fibular fracture. LOC (yes/no?): yes Anticoagulant / Anti-platelet Rx? (for what dx?): denies Referring Facility Name (N/A for scene EMR run): n/a INJURIES: Right distal fibular fracture OTHER MEDICAL PROBLEMS: Possible seizure Substance abuse INCIDENTAL FINDINGS: None PROCEDURES: To OR with ortho today TODAY'S ASSESSMENT AND PLAN OF CARE: R distal fibular fracture -to OR with ortho today -clear for OR 2. Questionable seizure -neurology consulted and evaluated -feels this was likely a syncopal convulsive event secondary to hypovolemia and substance abuse -continue IV hydration 3. Hx of substance abuse -phenobarb taper ordered Dvt ppx: lovenox CHIEF COMPLAINT / OVERNIGHT EVENTS: Right lower extremity pain. States he does not remember much of event. MEDICAL HISTORY / ROS: Admission history and ROS reviewed. Pertinent changes as follows: none PHYSICAL EXAM: Heart Rate: [80-92] Temp: [36.7 C (98 F)-37.2 C (98.9 F)] Resp: [14-22] BP: (118-152)/(73-95) Height: [172.7 cm (5' 8)] Weight: [118 kg (260 lb)] SpO2: [95 %-98 %] Physical Exam Constitutional: Comments: Drowsy but arousable HENT: Head: Normocephalic and atraumatic. Eyes: Extraocular Movements: Extraocular movements intact. Cardiovascular: Rate and Rhythm: Normal rate and regular rhythm. Pulmonary: Effort: No respiratory distress. Breath sounds: No stridor. Abdominal: General: There is no distension. Palpations: Abdomen is soft. Tenderness: There is no abdominal tenderness. Musculoskeletal: General: Swelling present. Cervical back: No rigidity or tenderness. Comments: RLE swelling and pain to palpation Skin: General: Skin is warm and dry. Neurological: General: No focal deficit present. Mental Status: He is oriented to person, place, and time. IMAGING SUMMARY: (summary of new imaging findings, not a copy of dictation) CTH/ c spine: negative CT C/A/P: negative XR RLE: distal fibular fracture LABS: Results from last 7 days Lab Units 11/01/24 1113 10/31/24 1905 WBC AUTO x10*3/uL 10.2 13.8* HEMOGLOBIN g/dL 15.2 16.3 HEMATOCRIT % 45.5 45.9 PLATELETS AUTO x10*3/uL 204 230 NEUTROS PCT AUTO % -- 74.6 LYMPHS PCT AUTO % -- 16.5 MONOS PCT AUTO % -- 7.0 EOS PCT AUTO % -- 0.7 Results from last 7 days Lab Units 10/31/24 2228 APTT seconds 26 INR 1.0 Results from last 7 days Lab Units 11/01/24 1113 10/31/24 1905 SODIUM mmol/L 137 135* POTASSIUM mmol/L 4.5 4.4 CHLORIDE mmol/L 102 98 CO2 mmol/L 28 29 BUN mg/dL 13 15 CREATININE mg/dL 0.90 1.14 CALCIUM mg/dL 9.2 10.1 PROTEIN TOTAL g/dL -- 8.2 BILIRUBIN TOTAL mg/dL -- 0.6 ALK PHOS U/L -- 89 ALT U/L -- 39 AST U/L -- 24 GLUCOSE mg/dL 102* 101* Results from last 7 days Lab Units 10/31/24 1905 BILIRUBIN TOTAL mg/dL 0.6 I have reviewed all medications, laboratory results, and imaging pertinent for today's encounter. Liset Shabazz MD Surgical Critical Care Fellow Cosigned by Javed Espinoza MD at 11/02/2024 12:45 AM EDT Associated attestation - Javed Espinoza MD - 11/02/2024 12:45 AM EDT The patient was in the OR during my rounds. documented in this encounter [facility] Work Phone: 11-05-2024 Plan of care note The patient's goals for the shift include The clinical goals for the shift include pain control [facility] 11-05-2024 Plan of care note CHW met with patient at bedside, Patient stated that he is interested in community resources in [facility], Patient stated he received out to a facility for rehab [place] near his area after discharge. CHW provided a [facility] resources to assist with food housing financial assistance etc, [employer] for guidances and support, Patient mentioned applying for disability. CHW provided disability resources information, including steps on how to apply online. CHW also provided the rehab center patient is interested contact information. Community Resource Name: Phone Number: Staff Member: Discussed the following topics on behalf of the patient: [] Behavioral Health Assistance [] Case Management [] Customer Engagement Analyst Assistance [] Digital Equity Assistance [] Dental Health Assistance [] Education Assistance [] Employment Assistance [] Financial Strain Relief Assistance [x] Food Insecurity Assistance [] Healthcare Coverage Assistance [x] Housing Stability Assistance [] IP Violence Relief Assistance [] Legal Assistance [] Physical Activity Assistance [] Social Connection Assistance [] Stress Relief Assistance [] Substance Abuse Assistance [] Transportation Assistance [] Utility Assistance [x] Other: [insert comment here] Next Steps: MARIA DE JESUS Foster ast [facility] 11-05-2024 Plan of care note The patient's goals for the shift include The clinical goals for the shift include patient will remain free from injuries Problem: Skin Goal: Decreased wound size/increased tissue granulation at next dressing change Outcome: Progressing Goal: Participates in plan/prevention/treatment measures Outcome: Progressing Goal: Prevent/manage excess moisture Outcome: Progressing Goal: Prevent/minimize sheer/friction injuries Outcome: Progressing Goal: Promote/optimize nutrition Outcome: Progressing Goal: Promote skin healing Outcome: Progressing Problem: Safety - Adult Goal: Free from fall injury Outcome: Progressing Problem: Discharge Planning Goal: Discharge to home or other facility with appropriate resources Outcome: Progressing Problem: Chronic Conditions and Co-morbidities Goal: Patient's chronic conditions and co-morbidity symptoms are monitored and maintained or improved Outcome: Progressing Problem: Nutrition Goal: Nutrient intake appropriate for maintaining nutritional needs Outcome: Progressing [facility] 11-02-2024 Plan of care note The patient's goals for the shift include The clinical goals for the shift include Pt pain will be contolled [facility] 11-02-2024 Hospital Discharg e instructions Ivelisse Lorenzo MD - 11/02/2024 5:31 AM EDT Orthopaedic Surgery Discharge Instructions: Follow-Up Instructions You will need to be seen in clinic by Dr. Ike Stuart in 2 weeks for a post-operative evaluation. You will need to call and schedule an appointment, unless there is a previous appointment that appears on your discharge instructions. The direct orthopaedic clinic appointment line phone number is [phone]. Please do not delay in calling to make this appointment. You should also follow up with your primary care provider in 1-2 weeks. Activity Restrictions 1) No driving until further instructed by your orthopaedic physician, which will be addressed at your outpatient appointments. 2) No driving or operating heavy machinery while taking narcotic pain medication. 3) Weight bearing status --> non-weightbearing right lower extremity Splint/Cast care instructions: 1) Keep your splint on until your follow up visit with your surgeon. 2) Do not get your splint/cast wet for any reason. This includes protecting it from shower water, bath water, and the rain. If the cast/splint becomes wet for any reason, you need to be seen immediately, either in the emergency department or in the first available clinic appointment, in order to have the splint/cast changed. Allowing a wet splint/cast to sit on your skin may cause skin breakdown and infection. 3) Do not stick any sharp objects (knives, forks, clothes hangers, etc) inside your splint/cast to itch. These objects scratch the skin, which may become infected. Alternatively, you may blow a fine unhairer, on the cool air setting, in order to provide some relief. 4) You should keep your operative or injured extremity elevated at or above the level of your heart for the first 48-72 hours. This will help minimize the swelling in the immediate aftermath from surgery or from an acute fracture/injury. 5) You may ice your injured/operative extremity, which is especially useful to minimize swelling, in the first 48-72 hours. Make sure that the ice is not in direct contact with your skin, and that the ice does not leak out of it's bag. It will take ~30 minutes for the ice/cooling to move through your splint/cast material, but it will do so. Double-bagging ice is an effective technique. 6) If you begin to experience progressive and rapidly increasing pain that seems out of proportion to what you normally have been experiencing from your baseline pain after surgery/injury, or if your hand or foot become numb or turn blue and cold - you NEED TO CALL US IMMEDIATELY. Alternatively, you may come into the emergency department IMMEDIATELY for an emergent evaluation. documented in this encounter [facility] Work Phone: 11-02-2024 Plan of care note The patient's goals for the shift include The clinical goals for the shift include pts pain will be controlled through shift Problem: Skin Goal: Decreased wound size/increased tissue granulation at next dressing change Outcome: Progressing Flowsheets (Taken 11/02/2024213) Decreased wound size/increased tissue granulation at next dressing change: Promote sleep for wound healing Goal: Participates in plan/prevention/treatment measures Outcome: Progressing Flowsheets (Taken 11/02/2024213) Participates in plan/prevention/treatment measures: Increase activity/out of bed for meals Elevate heels Goal: Prevent/manage excess moisture Outcome: Progressing Flowsheets (Taken 11/02/2024213) Prevent/manage excess moisture: Monitor for/manage infection if present Cleanse incontinence/protect with barrier cream Goal: Prevent/minimize sheer/friction injuries Outcome: Progressing Flowsheets (Taken 11/02/2024213) Prevent/minimize sheer/friction injuries: HOB 30 degrees or less Turn/reposition every 2 hours/use positioning/transfer devices Goal: Promote/optimize nutrition Outcome: Progressing Flowsheets (Taken 11/02/2024213) Promote/optimize nutrition: Assist with feeding Monitor/record intake including meals Goal: Promote skin healing Outcome: Progressing Flowsheets (Taken 11/02/2024213) Promote skin healing: Assess skin/pad under line(s)/device(s) Turn/reposition every 2 hours/use positioning/transfer devices [facility] 11-01-2024 Hospital Note Formatting of t his note might be different from the original. 29 yo M s/p seizure with fall. Imaging revealed R fibula fracture. Hx of polysubstance use. Neuro consulted due to concern for seizure activity. Recommend likely substance related with no further workup or interventions necessary, no follow up needed. Ortho consulted, planning for surgical intervention, cleared for OR by trauma. Admitted to [facility]. Taken to OR on 11/01 for R ankle ORIF. Patient to follow up outpatient in [address] Stuart. PT/OT worked with patient while admitted, pt discharged to SNF at time of discharge. Pt sent with scripts and meds continued, follow up appointments placed. Pain well controlled, eating and drinking well. Pt verbalized understanding of discharge instructions. [facility] Work Phone: 11-01-2024 foreign exchange services manager Note Neurology Final Assessment and Plan: # Convulsive syncope in the setting of polysubstance use and dehydration Javed Reyes is a 29 y.o. male with a prior history of ADHD and current polysubstance use (alcohol, tobacco, cocaine, marijuana) presenting to ED for first-time seizure-like event for which neurology was consulted. As noted in the history above patient recently involved with heavy binge drinking as well as cocaine/marijuana and tobacco use and appears severely dehydrated in the heat today waiting for his friend to pick him up when he had a spell loss of consciousness with reported convulsions. Patient is certainly at risk for provoked seizures in the setting of heavy binge drinking although does appear prodromal symptoms likely in the setting of severe dehydration could have contributed to a convulsive syncopal spell, will defer further syncope workup to primary. Given the brief duration and return to baseline I estimate this is more likely although provoked seizure certainly still possible. Regardless this is the first time event in the setting of severe substance use no further testing at this time no indication for antiepileptic therapy at this time. Patient is currently admitted under trauma/Ortho for correction of right ankle fracture. Counseled patient on the dangers of seizures as well as current substance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 neurology was consulted. As noted in the history above patient recently involved with heavy binge drinking as well as cocaine/marijuana and tobacco use and appears severely dehydrated in the heat today waiting for his friend to pick him up when he had a spell loss of consciousness with reported convulsions. Patient is certainly at risk for provoked seizures in the setting of heavy binge drinking although does appear prodromal symptoms likely in the setting of severe dehydration could have contributed to a convulsive syncopal spell, will defer further syncope workup to primary. Given the brief duration and return to baseline I estimate this is more likely although provoked seizure certainly still possible. Regardless this is the first time event in the setting of severe substance use no further testing at this time no indication for antiepileptic therapy at this time. Patient is currently admitted under trauma/Ortho for correction of right ankle fracture. Counseled patient on the dangers of seizures as well as current substance abuse he is open to receiving counseling/resources and willing to stop at this time - resources to be provided per primary. Will formally staffed in a.m. with neurology attending if further testing is indicated this time we will reach out to primary. Davis Curry DO Cosigned by Anupam Mclean DO at 11/01/2024 6:32 PM EDT Associated attestation - Anupam Mclean DO - 11/01/2024 6:32 PM EDT I reviewed the resident/fellow's documentation and discussed the patient with the resident/fellow. I agree with the resident/fellow's medical decision making as documented in the note. I attempted to see the patient on multiple occasions today (11/01), however, he was in the operating room/recovery room following repair of his tibial fracture. The event described is most consistent with convulsive syncope. There is a low suspicion for seizure at this time, though he is at heightened risk given his alcohol and drug use. No need for EEG or antiepileptic medication at this time. Please see the neurology significant event note dated 11/01 for our detailed recommendations. documented in this encounter [facility] Work Phone: 10-31-2024 History and physical note [facility] - HISTORY AND PHYSICAL / CONSULT Patient Name: Javed Reyes Admit Date: [id number] : 1995 AGE: 29 y.o. GENDER: male ======== MECHANISM OF INJURY / CHIEF COMPLAINT: 29 yo M s/p possible seizure after being in the heat today and feeling dehydrated. Drank 2 beers today, had a few cigarettes and smoked marijuana. Denies prior confirmed seizure history but did recall does one other event of convulsions 1 week ago X1 when high on marijuana LOC (yes/no?): yes Anticoagulant / Anti-platelet Rx? (for what dx?): denies Referring Facility Name (N/A for scene EMR run): n/a INJURIES: #distal fibular fx with medial malleolar avulsion OTHER MEDICAL PROBLEMS: Denies INCIDENTAL FINDINGS: N/a ======== ADMISSION PLAN OF CARE: #distal fibular fx with medial malleolar avulsion -ortho consulted, recommending surgical intervention -RCRI of 0, clear for the OR from trauma perspective -multimodal pain control #possible seizure/syncopal fall -martini scan negative -tox screen -neuro consulted, recommend no further seizure workup as likely related to severe substance use #DVT ppx -Lovenox -SCDs #GI -NPO at midnight except clears 2 hrs prior to OR #ETOH -phenobarb taper -thiamine and folic acid Consultants notified (specialty, provider name, time): ortho Dispo: Admit to [facility] for PT/OT Pt seen and discussed with attending Dr. Castellano Total face to face time spent with patient/family of 30 minutes, with >50% of the time spent discussing plan of care/management, counseling/educating on disease processes, explaining results of diagnostic testing. I have reviewed all medications, laboratory results, and imaging pertinent for today's encounter. Edna Choudhary PA-C Trauma, Critical Care, Acute Care Surgery [facility] [id number] [facility] [id number] ======== PAST MEDICAL HISTORY: PMH: denies, one prior event 1.5 weeks ago where he had convulsions after smoking marijuana SOCIAL HISTORY: Smoking: cigarettes Alcohol: works in [employer] industry, often has a few drinks after work, endorses drinking most days, no withdrawal history Drug use: occasional coke use, frequent marijuana use MEDICATIONS: denies ALLERGIES: denies PHYSICAL EXAM: PRIMARY SURVEY: Airway Airway is patent. Breathing Breathing is normal. Right breath sounds are normal. Left breath sounds are normal. Circulation Cardiac rhythm is regular. Rate is regular. There is no murmur present. There is no pericardial rub present. Pulses Radial: 2+ on the right; 2+ on the left. Femoral: 2+ on the right; 2+ on the left. Pedal: 2+ on the right; 2+ on the left. Disability Caitlyn Coma Score Eye:4 Verbal:5 Motor:6 15 Pupils Right Pupil: round and reactive Left Pupil: round and reactive Motor Strength Gripper Machine Operator strength: 5/5 on the right 5/5 on the left Dorsiflex strength: 0/5 on the right 5/5 on the left Plantarflex strength: 0/5 on the right 5/5 on the left The patient does not have a sensory deficit. Interventions: Able to wiggle toes on right. RLE is in cast so mobility for plantar/dorsiflexion is limited. Pain well controlled. Sensation intact all extremities. SECONDARY SURVEY/PHYSICAL EXAM: Physical Exam Constitutional: Appearance: He is obese. HENT: Head: Normocephalic and atraumatic. Right Ear: External ear normal. Left Ear: External ear normal. Nose: Nose normal. Mouth/Throat: Mouth: Mucous membranes are moist. Pharynx: Oropharynx is clear. Eyes: Extraocular Movements: Extraocular movements intact. Pupils: Pupils are equal, round, and reactive to light. Cardiovascular: Rate and Rhythm: Normal rate and regular rhythm. Pulses: Normal pulses. Heart sounds: Normal heart sounds. Pulmonary: Effort: Pulmonary effort is normal. Breath sounds: Normal breath sounds. Abdominal: Palpations: Abdomen is soft. Tenderness: There is no abdominal tenderness. Musculoskeletal: General: Tenderness and signs of injury present. Normal range of motion. Cervical back: Normal range of motion. No tenderness. Comments: RLE in splint with overlying shabana wrap Skin: General: Skin is warm and dry. Capillary Refill: Capillary refill takes less than 2 seconds. Neurological: General: No focal deficit present. Mental Status: He is alert and oriented to person, place, and time. Sensory: No sensory deficit. IMAGING SUMMARY: (summary of findings, not a copy of dictation) CXR: no acute cardiopulmonary process R knee/R tib/fib/Ankle: distal fibular fx with medial malleolar avulsion CT Head/C/T/L/CAP: negative for traumatic injuries LABS: Results from last 7 days Lab Units 10/31/24 1905 WBC AUTO x10*3/uL 13.8* HEMOGLOBIN g/dL 16.3 HEMATOCRIT % 45.9 PLATELETS AUTO x10*3/uL 230 NEUTROS PCT AUTO % 74.6 LYMPHS PCT AUTO % 16.5 MONOS PCT AUTO % 7.0 EOS PCT AUTO % 0.7 Results from last 7 days Lab Units 10/31/24 1905 SODIUM mmol/L 135* POTASSIUM mmol/L 4.4 CHLORIDE mmol/L 98 CO2 mmol/L 29 BUN mg/dL 15 CREATININE mg/dL 1.14 CALCIUM mg/dL 10.1 PROTEIN TOTAL g/dL 8.2 BILIRUBIN TOTAL mg/dL 0.6 ALK PHOS U/L 89 ALT U/L 39 AST U/L 24 GLUCOSE mg/dL 101* Results from last 7 days Lab Units 10/31/24 1905 BILIRUBIN TOTAL mg/dL 0.6 I have reviewed all laboratory and imaging results ordered/pertinent for this encounter. Cosigned by Ganga Castellano DO at 11/01/2024 10:54 AM EDT Associated attestation - Ganga Castellano DO - 11/01/2024 10:54 AM EDT I saw and evaluated the patient. I personally obtained the bejarano and critical portions of the history and physical exam or was physically present for bejarano and critical portions performed by the resident/fellow. I reviewed the resident/fellow's documentation and discussed the patient with the resident/fellow. I agree with the resident/fellow's medical decision making as documented in the note. Cleared for OR with orthopedic surgery. Appreciate neurology consult. Ganga Castellano DO [facility] Work Phone: 10-31-2024 History and physical note [facility] TRAUMA [facility] - HISTORY AND PHYSICAL / CONSULT Patient Name: Javed Reyes Admit Date: [id number] : 1995 AGE: 29 y.o. GENDER: male ======== MECHANISM OF INJURY / CHIEF COMPLAINT: 29 yo M s/p possible seizure after being in the heat today and feeling dehydrated. Drank 2 beers today, had a few cigarettes and smoked marijuana. Denies prior confirmed seizure history but did recall does one other event of convulsions 1 week ago X1 when high on marijuana LOC (yes/no?): yes Anticoagulant / Anti-platelet Rx? (for what dx?): denies Referring Facility Name (N/A for scene EMR run): n/a INJURIES: #distal fibular fx with medial malleolar avulsion OTHER MEDICAL PROBLEMS: Denies INCIDENTAL FINDINGS: N/a ======== ADMISSION PLAN OF CARE: #distal fibular fx with medial malleolar avulsion -ortho consulted, recommending surgical intervention -RCRI of 0, clear for the OR from trauma perspective -multimodal pain control #possible seizure/syncopal fall -martini scan negative -tox screen -neuro consulted, recommend no further seizure workup as likely related to severe substance use #DVT ppx -Lovenox -SCDs #GI -NPO at midnight except clears 2 hrs prior to OR #ETOH -phenobarb taper -thiamine and folic acid Consultants notified (specialty, provider name, time): ortho Dispo: Admit to [facility] for PT/OT Pt seen and discussed with attending Dr. Castellano Total face to face time spent with patient/family of 30 minutes, with >50% of the time spent discussing plan of care/management, counseling/educating on disease processes, explaining results of diagnostic testing. I have reviewed all medications, laboratory results, and imaging pertinent for today's encounter. 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 Breathing Breathing is normal. Right breath sounds are normal. Left breath sounds are normal. Circulation Cardiac rhythm is regular. Rate is regular. There is no murmur present. There is no pericardial rub present. Pulses Radial: 2+ on the right; 2+ on the left. Femoral: 2+ on the right; 2+ on the left. Pedal: 2+ on the right; 2+ on the left. Disability Caitlyn Coma Score Eye:4 Verbal:5 Motor:6 15 Pupils Right Pupil: round and reactive Left Pupil: round and reactive Motor Strength Gripper Machine Operator strength: 5/5 on the right 5/5 on the left Dorsiflex strength: 0/5 on the right 5/5 on the left Plantarflex strength: 0/5 on the right 5/5 on the left The patient does not have a sensory deficit. Interventions: Able to wiggle toes on right. RLE is in cast so mobility for plantar/dorsiflexion is limited. Pain well controlled. Sensation intact all extremities. SECONDARY SURVEY/PHYSICAL EXAM: Physical Exam Constitutional: Appearance: He is obese. HENT: Head: Normocephalic and atraumatic. Right Ear: External ear normal. Left Ear: External ear normal. Nose: Nose normal. Mouth/Throat: Mouth: Mucous membranes are moist. Pharynx: Oropharynx is clear. Eyes: Extraocular Movements: Extraocular movements intact. Pupils: Pupils are equal, round, and reactive to light. Cardiovascular: Rate and Rhythm: Normal rate and regular rhythm. Pulses: Normal pulses. Heart sounds: Normal heart sounds. Pulmonary: Effort: Pulmonary effort is normal. Breath sounds: Normal breath sounds. Abdominal: Palpations: Abdomen is soft. Tenderness: There is no abdominal tenderness. Musculoskeletal: General: Tenderness and signs of injury present. Normal range of motion. Cervical back: Normal range of motion. No tenderness. Comments: RLE in splint with overlying shabana wrap Skin: General: Skin is warm and dry. Capillary Refill: Capillary refill takes less than 2 seconds. Neurological: General: No focal deficit present. Mental Status: He is alert and oriented to person, place, and time. Sensory: No sensory deficit. IMAGING SUMMARY: (summary of findings, not a copy of dictation) CXR: no acute cardiopulmonary process R knee/R tib/fib/Ankle: distal fibular fx with medial malleolar avulsion CT Head/C/T/L/CAP: negative for traumatic injuries LABS: Results from last 7 days Lab Units 10/31/24 1905 WBC AUTO x10*3/uL 13.8* HEMOGLOBIN g/dL 16.3 HEMATOCRIT % 45.9 PLATELETS AUTO x10*3/uL 230 NEUTROS PCT AUTO % 74.6 LYMPHS PCT AUTO % 16.5 MONOS PCT AUTO % 7.0 EOS PCT AUTO % 0.7 Results from last 7 days Lab Units 10/31/24 1905 SODIUM mmol/L 135* POTASSIUM mmol/L 4.4 CHLORIDE mmol/L 98 CO2 mmol/L 29 BUN mg/dL 15 CREATININE mg/dL 1.14 CALCIUM mg/dL 10.1 PROTEIN TOTAL g/dL 8.2 BILIRUBIN TOTAL mg/dL 0.6 ALK PHOS U/L 89 ALT U/L 39 AST U/L 24 GLUCOSE mg/dL 101* Results from last 7 days Lab Units 10/31/24 1905 BILIRUBIN TOTAL mg/dL 0.6 I have reviewed all laboratory and imaging results ordered/pertinent for this encounter. Cosigned by Ganga Castellano DO at 11/01/2024 10:54 AM EDT Associated attestation - Ganga Castellano DO - 11/01/2024 10:54 AM EDT I saw and evaluated the patient. I personally obtained the bejarano and critical portions of the history and physical exam or was physically present for bejarano and critical portions performed by the resident/fellow. I reviewed the resident/fellow's documentation and discussed the patient with the resident/fellow. I agree with the resident/fellow's medical decision making as documented in the note. Cleared for OR with orthopedic surgery. Appreciate neurology consult. Ganga Castellano DO documented in this encounter [facility] Work Phone: 10-31-2024 Emergency department Note History of Present Illness History provided by: Patient Limitations to History: Distracting Injury/Severe Pain External Records Reviewed with Brief Summary: None HPI: Javed Reyes is a 29 y.o. male with significant pmhx including polysubstance abuse including ETOH and cocaine presenting to ER for syncope and ankle fracture. Nuvia has been drinking a lot more than usual due to problems with housing and friends. Reports that he was at a restaurant when he lost consciousness and woke up on the floor. Upon waking his ankle was injured. Reports has not had syncope episode before. Reports witnesses state he may have had a seizure. Reports he had been using cocaine, marijuana and alcohol all together prior to seizure. Reports he has had seizure episode before. Denies headaches. Reports severe pain to the RLE. Physical Exam Triage vitals: T 36.7 C (98 F) HR 92 BP 118/73 RR 18 O2 95 % None (Room air) Physical Exam Constitutional: Appearance: He is obese. HENT: Head: Normocephalic and atraumatic. Nose: Nose normal. Mouth/Throat: Mouth: Mucous membranes are dry. Pharynx: Oropharynx is clear. No oropharyngeal exudate. Eyes: Pupils: Pupils are equal, round, and reactive to light. Comments: Left eye ptosis Cardiovascular: Rate and Rhythm: Normal rate. Pulmonary: Effort: Pulmonary effort is normal. Musculoskeletal: General: Tenderness and signs of injury present. Cervical back: Normal range of motion. Comments: Right ankle is diffusely erythematous. Non-pitting edema localized to ankle joint. It is Tender to touch. ROM and strength testing deferred at this time due to pain, ecchymosis noted to Right ankle Skin: General: Skin is warm and dry. Neurological: Mental Status: He is alert and oriented to person, place, and time. Mental status is at baseline. Medical Decision Making & ED Course Medical Decision Makin y.o. male presenting for evaluation of new onset of syncope which possibly led to a new right closed ankle fracture made worse by patient's pmhx of polysubstance abuse including cocaine and ETOH abuse. Neurologically intact. CT Head wo contrast ordered. Syncope episode possibly d/t chronic cocaine and EtOH abuse. Orthopedic and trauma consulted for evaluation of ankle fracture and new syncope episode. The fibula and tibia fracture was partially reduced in the ER. It will require surgical intervention. Patient will be admitted to trauma Dr. Castellano. Neurology has been consulted for seizures. Caitlyn Coma Scale Score: 15 Differential diagnoses considered include but are not limited to: closed, comminuted ankle fracture, Social Determinants of Health which Significantly Impact Care: None identified The following actions were taken to address these social determinants: Patient offered evaluation by Social Work EKG Independent Interpretation: EKG not obtained Independent Result Review and Interpretation: Relevant laboratory and radiographic results were reviewed and independently interpreted by myself. As necessary, they are commented on in the ED Course. Chronic conditions affecting the patient's care: As documented above in MDM The patient was discussed with the following consultants/services: None Care Considerations: As documented above in [facility] ED Course: ED Course as of 11/06/24442 Wed Oct 31, [id number] BLOOD GAS VENOUS FULL PANEL(!) VBG notable for hypercapnia with a PCO2 of 54 but normal pH and no other significant abnormalities appreciated. [RS] 1916 X-ray imaging personally interpreted by me showing no evidence of focal infiltrate, pulmonary edema or pleural effusion. Right knee, tib-fib and ankle x-rays reviewed which does show a distal comminuted fibular fracture with a right medial malleoli avulsion fracture. Will consult orthopedic surgery and have them evaluate the patient. [RS] 192 ECG 12 lead EKG personally interpreted by me showing normal sinus rhythm at a rate of 99 bpm with normal axis. Intervals are within normal limits. There is no ST elevation or depression appreciated. No concerning T wave abnormalities. No DIVINA. No previous EKGs available for comparison. [RS] ED Course User Index [RS] Noah Betancur DO Diagnoses as of 11/06/24442 Displaced comminuted fracture of shaft of right fibula, initial encounter for closed fracture Disposition As a result of their workup, the patient will require admission to the hospital. The patient was informed of his diagnosis. The patient was given the opportunity to ask questions and I answered them. The patient agreed to be admitted to the hospital. Patient seen and discussed with ED attending physician. Patrick Poole DPM Emergency Medicine Patrick Poole DPM Resident 11/01/24 0135 Patrick Poole DPM Resident 11/01/24 1805 The patient was seen by the resident/fellow. I have personally performed a substantive portion of the encounter. I have seen and examined the patient; agree with the workup, evaluation, MDM, management and diagnosis. The care plan has been discussed with the resident; I have reviewed the resident s note and agree with the documented findings. Noah Colvin MD 11/06/24442 Pt states that he possibly had a seizure per what he was told by bystanders, pt states that he just remembers walking into the restaurant and then waking up on the ground, pt states that he had a similar episode last week, pt states that he did drink 2 beers today and smoked some marijuana, pt is also c/o right ankle pain documented in this encounter [facility] Work Phone: 10-31-2024 Physician Emergency department Note History of Present Illness History provided by: Patient Limitations to History: Distracting Injury/Severe Pain External Records Reviewed with Brief Summary: None HPI: Javed Reyes is a 29 y.o. male with significant pmhx including polysubstance abuse including ETOH and cocaine presenting to ER for syncope and ankle fracture. Reports has been drinking a lot more than usual due to problems with housing and friends. Reports that he was at a restaurant when he lost consciousness and woke up on the floor. Upon waking his ankle was injured. Reports has not had syncope episode before. Reports witnesses state he may have had a seizure. Reports he had been using cocaine, marijuana and alcohol all together prior to seizure. Reports he has had seizure episode before. Denies headaches. Reports severe pain to the RLE. Physical Exam Triage vitals: T 36.7 C (98 F) HR 92 BP 118/73 RR 18 O2 95 % None (Room air) Physical Exam Constitutional: Appearance: He is obese. HENT: Head: Normocephalic and atraumatic. Nose: Nose normal. Mouth/Throat: Mouth: Mucous membranes are dry. Pharynx: Oropharynx is clear. No oropharyngeal exudate. Eyes: Pupils: Pupils are equal, round, and reactive to light. Comments: Left eye ptosis Cardiovascular: Rate and Rhythm: Normal rate. Pulmonary: Effort: Pulmonary effort is normal. Musculoskeletal: General: Tenderness and signs of injury present. Cervical back: Normal range of motion. Comments: Right ankle is diffusely erythematous. Non-pitting edema localized to ankle joint. It is Tender to touch. ROM and strength testing deferred at this time due to pain, ecchymosis noted to Right ankle Skin: General: Skin is warm and dry. Neurological: Mental Status: He is alert and oriented to person, place, and time. Mental status is at baseline. Medical Decision Making & ED Course Medical Decision Makin y.o. male presenting for evaluation of new onset of syncope which possibly led to a new right closed ankle fracture made worse by patient's pmhx of polysubstance abuse including cocaine and ETOH abuse. Neurologically intact. CT Head wo contrast ordered. Syncope episode possibly d/t chronic cocaine and EtOH abuse. Orthopedic and trauma consulted for evaluation of ankle fracture and new syncope episode. The fibula and tibia fracture was partially reduced in the ER. It will require surgical intervention. Patient will be admitted to trauma Dr. Castellano. Neurology has been consulted for seizures. Caitlyn Coma Scale Score: 15 Differential diagnoses considered include but are not limited to: closed, comminuted ankle fracture, Social Determinants of Health which Significantly Impact Care: None identified The following actions were taken to address these social determinants: Patient offered evaluation by Social Work EKG Independent Interpretation: EKG not obtained Independent Result Review and Interpretation: Relevant laboratory and radiographic results were reviewed and independently interpreted by myself. As necessary, they are commented on in the ED Course. Chronic conditions affecting the patient's care: As documented above in [facility] The patient was discussed with the following consultants/services: None Care Considerations: As documented above in [facility] ED Course: ED Course as of 11/06/24 0443 TueOct 31, [id number] BLOOD GAS VENOUS FULL PANEL(!) VBG notable for hypercapnia with a PCO2 of 54 but normal pH and no other significant abnormalities appreciated. [RS] 191 X-ray imaging personally interpreted by me showing no evidence of focal infiltrate, pulmonary edema or pleural effusion. Right knee, tib-fib and ankle x-rays reviewed which does show a distal comminuted fibular fracture with a right medial malleoli avulsion fracture. Will consult orthopedic surgery and have them evaluate the patient. [RS] 192 ECG 12 lead EKG personally interpreted by me showing normal sinus rhythm at a rate of 99 bpm with normal axis. Intervals are within normal limits. There is no ST elevation or depression appreciated. No concerning T wave abnormalities. No DIVINA. No previous EKGs available for comparison. [RS] ED Course User Index [RS] Noah Echevarriaese, DO Diagnoses as of 11/06/24442 Displaced comminuted fracture of shaft of right fibula, initial encounter for closed fracture Disposition As a result of their workup, the patient will require admission to the hospital. The patient was informed of his diagnosis. The patient was given the opportunity to ask questions and I answered them. The patient agreed to be admitted to the hospital. Patient seen and discussed with ED attending physician. Patrick Poole DPM Emergency Medicine Patrick Poole DPM Resident 11/01/24 0135 Patrick Poole DPM Resident 11/01/24 1805 The patient was seen by the resident/fellow. I have personally performed a substantive portion of the encounter. I have seen and examined the patient; agree with the workup, evaluation, MDM, management and diagnosis. The care plan has been discussed with the resident; I have reviewed the resident s note and agree with the documented findings. Noah Colvin MD 11/06/24442 [facility] Work Phone: 10-31-2024 Emergency department Triage note Pt states that he possibly had a seizure per what he was told by bystanders, pt states that he just remembers walking into the restaurant and then waking up on the ground, pt states that he had a similar episode last week, pt states that he did drink 2 beers today and smoked some marijuana, pt is also c/o right ankle pain [facility] Work Phone: 02-24-2024 Hospital Discharg e instructions Patient Education 02/23/2024 23:12:16 Athlete s Foot Athlete s Foot Athlete s foot (tinea pedis) is caused by a fungal infection in the skin. It affects the skin between the toes, causing cracks in the skin called fissures. It can also affect the bottom of the foot where it causes dry white scales and peeling of the skin. This infection is more likely to occur when the foot is in hot, sweaty socks and shoes for long periods of time. You may feel itching and burning between your toes. This infection is treated with skin creams or medicine taken by mouth. Home care The following are general care guidelines: It is important to keep the feet dry. Use absorbent cotton socks and change them if they become sweaty. Or wear an open-toe shoe or sandal. Wash the feet at least once a day with soap and water. Apply the antifungal cream as prescribed. Some antifungal creams are available without a prescription. It may take a week before the rash starts to improve. It can take about 3 to 4 weeks to completely clear. Continue the medicine until the rash is all gone. Use [id number]-[id number] antifungal powders or sprays on your feet after exposure to high-risk environments, such as public showers, gyms, and locker rooms. This can help prevent future infections. Wearing appropriate shoes in these situations can help. Prevention The following tips may help prevent athlete s foot: Don't share shoes or socks with someone who has athlete's foot. Don't walk barefoot in places where a fungal infection can spread quickly such as locker rooms, showers, and swimming pools. Change socks regularly. Alternate shoes to assist in drying. Follow-up care Follow up with your healthcare provider as recommended if the rash does not improve after 10 days of treatment, or if the rash continues to spread. When to seek medical care Get medical attention right away if any of the following occur: Fever of 100.4 F (38 C) or higher, or as directed Increasing redness or swelling of the foot Infection comes back soon after treatment Pus draining from cracks in the skin [phone] [employer]. [address] [place] [address]. All rights reserved. This information is not intended as a substitute for professional medical care. Always follow your healthcare professional's instructions. 02/23/2024 23:12:08 Abscess, Incision And Drainage Abscess (Incision & Drainage) An abscess is sometimes called a boil. It happens when bacteria get trapped under the skin and start to grow. Pus forms inside the abscess as the body responds to the bacteria. An abscess can happen with an insect bite, ingrown hair, blocked oil gland, pimple, cyst, or puncture wound. Your healthcare provider has drained the pus from your abscess. If the abscess pocket was large, your healthcare provider may have put in gauze packing. Your provider will need to remove it on your next visit. He or she may also replace it at that time. You may not need antibiotics to treat a simple abscess, unless the infection is spreading into the skin around the wound (cellulitis). The wound will take about 1 to 2 weeks to heal, depending on the size of the abscess. Healthy tissue will grow from the bottom and sides of the opening until it seals over. Home care These tips can help your wound heal: The wound may drain for the first 2 days. Cover the wound with a clean dry dressing. Change the dressing if it becomes soaked with blood or pus. If a gauze packing was placed inside the abscess pocket, you may be told to remove it yourself. You may do this in the shower. Once the packing is removed, you should wash the area in the shower, or clean the area as directed by your provider. Continue to do this until the skin opening has closed. Make sure you wash your hands after changing the packing or cleaning the wound. If you were prescribed antibiotics, take them as directed until they are all gone. You may use acetaminophen or ibuprofen to control pain, unless another pain medicine was prescribed. If you have liver disease or ever had a stomach ulcer, talk with your doctor before using these medicines. Follow-up care Follow up with your healthcare provider, or as advised. If a gauze packing was put in your wound, it should be removed in 1 to 2 days. Check your wound every day for any signs that the infection is getting worse. The signs are listed below. When to seek medical advice Call your healthcare provider right away if any of these occur: Increasing redness or swelling Red streaks in the skin leading away from the wound Increasing local pain or swelling Continued pus draining from the wound 2 days after treatment Fever of 100.4 F (38 C) or higher, or as directed by your healthcare provider Boil returns when you are at home [id number] [employer]. [address] [place] [id number]. All rights reserved. This information is not intended as a substitute for professional medical care. Always follow your healthcare professional's instructions. Follow Up Care 02/23/2024 21:43:59 [facility] [phone] Address:Unknown When:[facility] Note Discharge Instructions Thank you for allowing [facility] to assist you with your healthcare needs. The following is important discharge information regarding your hospital visit. What to Do Next Instructions from Your Care Team No qualifying data available. Post Acute Orders No qualifying data available. You Need to Schedule the Following Appointments Follow Up with [facility] [phone] When:Within 2-4 days Allergies Cats Dust Medications Please ask your primary doctor or pharmacist before taking any other medication not listed, including over the counter drugs, herbal medications, vitamins and or supplements as they may interact with your home medications. What How Much When Instructions Last Dose New butenafine topical (Lotrimin Ultra Athlete's Foot 1% topical cream) 1 application Topical Two (2) times a day Printed Prescription New cephalexin (cephalexin 500 mg oral capsule) 1 cap by mouth Every 8 hours Printed Prescription New doxycycline (doxycycline hyclate 100 mg oral capsule) 1 cap by mouth Two (2) times a day Duration: 10 Days Printed Prescription Please take this list to your next doctor s visit. Bring all medications you take, including over the counter medications, herbals and other supplements with you to your doctor s visit. Patients and families are reminded to discard old lists and to update any records with all medication providers or retail pharmacies. Medication Leaflets butenafine topical (bue TEN a fine TOP i iliana) Lotrimin Ultra Athlete's Foot, Lotrimin Ultra Jock Itch What is the most important information I should know about butenafine topical? Follow all directions on the label and package. Use exactly as directed. Tell your healthcare provider if you use other medicines or have other medical conditions or allergies. What is butenafine topical? Butenafine topical (for the skin) is used in adults and children at least 12 years old to treat fungal skin infections such as athlete's foot, jock itch, and ringworm. Butenafine topical (for the skin) also helps relieve symptoms associated with fungal skin infections including itching, burning, cracking, and scaling. Butenafine topical may also be used for purposes not listed in this medication guide. What should I discuss with my healthcare provider before using butenafine topical? You should not use butenafine topical if you are allergic to it. Do not use butenafine topical for the nails, scalp, in or near the mouth or eye, or vaginal yeast infections. Ask a doctor or pharmacist before using this medicine if you have health problems or use other medications, or if you are or . Do not give this medicine to a child younger than 12 years old without medical advice. How should I use butenafine topical? Use exactly as directed on the label, or as prescribed by your doctor. Do not use in larger amounts or for longer than recommended. Do not take by mouth. Topical medicine is for use only on the skin. Depending on what it is used for, butenafine topical is usually applied 1 to 2 times a day. Do not use this medicine more often or longer than directed. Your doctor can help determine how long you should use this medicine. Wash your hands before and after applying this medicine. Use a mild soap to clean the skin area to be treated. Apply the medicine once the affected area is completely dry. If you are using butenafine topical on your feet, apply the medicine to all areas including between and around your toes. Keep using this medicine even if your symptoms quickly improve. Your symptoms may improve before the infection is completely cleared. Call your doctor if your symptoms do not improve, or if they get worse. Do not use butenafine topical to treat any condition that has not been checked by your doctor. Store at room temperature away from moisture and heat. What happens if I miss a dose? Apply the medicine as soon as you can, but skip the missed dose if it is almost time for your next dose. Do not apply two doses at one time. What happens if I overdose? Seek emergency medical attention or call the Poison Help line at if anyone has accidentally swallowed the medicine. What should I avoid while using butenafine topical? Do not get this medicine in your eyes. If contact does occur, rinse with water. Avoid using other medications on the areas you applied butenafine topical, unless your doctor tells you to. Avoid wearing tight-fitting shoes that do not allow air circulation. Change your shoes and socks at least once daily while treating athlete's foot. What are the possible side effects of butenafine topical? Get emergency medical help if you have signs of an allergic reaction: hives, difficult breathing, swelling of your face, lips, tongue, or throat. Stop using butenafine topical and call your doctor at once if you have: severe burning, stinging, or irritation after using this medicine; or any new or worsening skin symptoms. Common side effects may include: stinging, burning, or itching where the medicine was applied. This is not a complete list of side effects and others may occur. Call your doctor for medical advice about side effects. You may report side effects to FDA at 7-059-ZBD-9215. What other drugs will affect butenafine topical? Medicine used on the skin is not likely to be affected by other drugs you use, but many drugs can interact. Tell your doctor about all your current medicines, including prescription and eybj-ygr-[id number] medicines, vitamins, and herbal products. Where can I get more information? Your doctor or pharmacist can provide more information about butenafine topical. Remember, keep this and all other medicines out of the reach of children, never share your medicines with others, and use this medication only for the indication prescribed. Every effort has been made to ensure that the information provided by [employer]. ('[employer]') is accurate, up-to-date, and complete, but no guarantee is made to that effect. Drug information contained herein may be time sensitive. Clinical Data information has been compiled for use by healthcare practitioners and consumers in the [place] and therefore Clinical Data does not warrant that uses outside of the [place] are appropriate, unless specifically indicated otherwise. [employer] drug information does not endorse drugs, diagnose patients or recommend therapy. [employer] drug information is an informational resource designed to assist licensed healthcare practitioners in caring for their patients and/or to serve consumers viewing this service as a supplement to, and not a substitute for, the expertise, skill, knowledge and judgment of healthcare practitioners. The absence of a warning for a given drug or drug combination in no way should be construed to indicate that the drug or drug combination is safe, effective or appropriate for any given patient. [facility] does not assume any responsibility for any aspect of healthcare administered with the aid of information [facility] provides. The information contained herein is not intended to cover all possible uses, directions, precautions, warnings, drug interactions, allergic reactions, or adverse effects. If you have questions about the drugs you are taking, check with your doctor, nurse or pharmacist. Copyright 3369-0809 [facility]. Version: 5.01. Revision Date: 08/04/2023. cephalexin (sef a FRANK in) What is the most important information I should know about cephalexin? You should not use this medicine if you are allergic to cephalexin or to similar antibiotics, such as Ceftin, Cefzil, Omnicef, and others. Tell your doctor if you are allergic to any drugs, especially penicillins or other antibiotics. What is cephalexin? Cephalexin is a cephalosporin (SEF a low spor in) antibiotic that is used to treat bacterial infections of the lungs, ear, skin, bones, bladder, and kidneys. Cephalexin is used to treat infections in adults and children who are at least 1 year old. Cephalexin may also be used for purposes not listed in this medication guide. What should I discuss with my healthcare provider before taking cephalexin? You should not use this medicine if you are allergic to cephalexin or any other cephalosporin antibiotic (cefdinir, cefadroxil, cefoxitin, cefprozil, ceftriaxone, cefuroxime, Omnicef, and others). Tell your doctor if you have ever had: an allergy to any drug (especially penicillin); liver or kidney disease; or intestinal problems, such as colitis. The liquid form of cephalexin may contain sugar. This may affect you if you have diabetes. Tell your doctor if you are or breast-feeding. How should I take cephalexin? Follow all directions on your prescription label and read all medication guides or instruction sheets. Use the medicine exactly as directed. Do not use cephalexin to treat any condition that has not been checked by your doctor. Measure liquid medicine carefully. Use the dosing syringe provided, or use a medicine dose-measuring device (not a kitchen spoon). Use this medicine for the full prescribed length of time, even if your symptoms quickly improve. Skipping doses can increase your risk of infection that is resistant to medication. Cephalexin will not treat a viral infection such as the flu or a common cold. Do not share cephalexin with another person, even if they have the same symptoms you have. This medicine can affect the results of certain medical tests. Tell any doctor who treats you that you are using cephalexin. Store the tablets and capsules at room temperature away from moisture, heat, and light. Store the liquid medicine in the refrigerator. Throw away any unused liquid after 14 days. What happens if I miss a dose? Take the medicine as soon as you can, but skip the missed dose if it is almost time for your next dose. Do not take two doses at one time. What happens if I overdose? Seek emergency medical attention or call the Poison Help line at . Overdose symptoms may include nausea, vomiting, stomach pain, diarrhea, and blood in your urine. What should I avoid while taking cephalexin? Antibiotic medicines can cause diarrhea, which may be a sign of a new infection. If you have diarrhea that is watery or bloody, call your doctor before using anti-diarrhea medicine. What are the possible side effects of cephalexin? Get emergency medical help if you have signs of an allergic reaction (hives, difficult breathing, swelling in your face or throat) or a severe skin reaction (fever, sore throat, burning eyes, skin pain, red or purple skin rash with blistering and peeling). Call your doctor at once if you have: severe stomach pain, diarrhea that is watery or bloody (even if it occurs months after your last dose); unusual tiredness, feeling light-headed or short of breath; easy bruising, unusual bleeding, purple or red spots under your skin; a seizure; pale skin, cold hands and feet; yellowed skin, dark colored urine; fever, weakness; or pain in your side or lower back, painful urination. Common side effects may include: diarrhea; nausea, vomiting; indigestion, stomach pain; or vaginal itching or discharge. This is not a complete list of side effects and others may occur. Call your doctor for medical advice about side effects. You may report side effects to FDA at 1-740-EFH-4267. What other drugs will affect cephalexin? Tell your doctor about all your other medicines, especially: metformin; or probenecid. This list is not complete. Other drugs may affect cephalexin, including prescription and tkuz-gkv-mcgpvvd medicines, vitamins, and herbal products. Not all possible drug interactions are listed here. Where can I get more information? Your pharmacist can provide more information about cephalexin. Remember, keep this and all other medicines out of the reach of children, never share your medicines with others, and use this medication only for the indication prescribed. Every effort has been made to ensure that the information provided by [employer]. ('[employer]') is accurate, up-to-date, and complete, but no guarantee is made to that effect. Drug information contained herein may be time sensitive. Clinical Data information has been compiled for use by healthcare practitioners and consumers in the [place] and therefore Clinical Data does not warrant that uses outside of the [place] are appropriate, unless specifically indicated otherwise. [employer] drug information does not endorse drugs, diagnose patients or recommend therapy. [employer] drug information is an informational resource designed to assist licensed healthcare practitioners in caring for their patients and/or to serve consumers viewing this service as a supplement to, and not a substitute for, the expertise, skill, knowledge and judgment of healthcare practitioners. The absence of a warning for a given drug or drug combination in no way should be construed to indicate that the drug or drug combination is safe, effective or appropriate for any given patient. [employer] does not assume any responsibility for any aspect of healthcare administered with the aid of information [employer] provides. The information contained herein is not intended to cover all possible uses, directions, precautions, warnings, drug interactions, allergic reactions, or adverse effects. If you have questions about the drugs you are taking, check with your doctor, nurse or pharmacist. Copyright 3195-6519 [employer]. Version: .. Revision Date: 12/29/2022. doxycycline (oral/injection) (DOX mauricio romo) Acticlate, Adoxa, Alodox, Avidoxy, Doryx, Doryx MPC, Lymepak, Mondoxyne NL, Monodox, Morgidox, Morgidox 7x933oh, Morgidox 0h212lk, Okebo, Oracea, Targadox, Vibramycin, Vibramycin Monohydrate What is the most important information I should know about doxycycline? You should not take this medicine if you are allergic to any tetracycline antibiotic. Children younger than 8 years old should use doxycycline only in cases of severe or life-threatening conditions. This medicine can cause permanent yellowing or graying of the teeth in children Using doxycycline during could harm the unborn baby or cause permanent tooth discoloration later in the baby's life. What is doxycycline? Doxycycline is a tetracycline antibiotic that Doxycycline is used to treat many different bacterial infections, such as acne, urinary tract infections, intestinal infections, eye infections, gonorrhea, chlamydia, periodontitis (gum disease), and others. Doxycycline is also used to treat blemishes, bumps, and acne-like lesions caused by rosacea. Doxycycline will not treat facial redness caused by rosacea. Some forms of doxycycline are used to prevent malaria, to treat anthrax, or to treat infections caused by mites, ticks, or lice. Doxycycline may also be used for purposes not listed in this medication guide. What should I discuss with my healthcare provider before taking doxycycline? You should not take this medicine if you are allergic to doxycycline or other tetracycline antibiotics such as demeclocycline, minocycline, tetracycline, or tigecycline. Tell your doctor if you have ever had: liver disease; kidney disease; asthma or sulfite allergy; increased pressure inside your skull; or if you also take isotretinoin, seizure medicine, or a blood thinner such as warfarin (Coumadin). If you are using doxycycline to treat gonorrhea, your doctor may test you to make sure you do not also have syphilis, another sexually transmitted disease. Taking this medicine during may affect tooth and bone development in the unborn baby. Taking doxycycline during the last half of can cause permanent tooth discoloration later in the baby's life. Tell your doctor if you are or if you become . Doxycycline can make control pills less effective. Ask your doctor about using a non-hormonal control (condom, diaphragm with spermicide) to prevent . Doxycycline can pass into breast milk and may affect bone and tooth development in a nursing . Do not breastfeed while you are taking doxycycline. Doxycycline can cause permanent yellowing or graying of the teeth in children younger than 8 years old. Children should use doxycycline only in cases of severe or life-threatening conditions such as anthrax or [place] spotted fever. The benefit of treating a serious condition may outweigh any risks to the child's tooth development. How should I take doxycycline? Follow all directions on your prescription label and read all medication guides or instruction sheets. Use the medicine exactly as directed. Take doxycycline with a full glass of water. Drink plenty of liquids while you are taking doxycycline. Read and carefully follow any Instructions for Use provided with your medicine. Ask your doctor or pharmacist if you do not understand these instructions. Most brands of doxycyline may be taken with food or milk if the medicine upsets your stomach. Different brands of doxycycline may have different instructions about taking them with or without food. Take Oracea on an empty stomach, at least 1 hour before or 2 hours after a meal. You may need to split a doxycycline tablet to get the correct dose. Follow your doctor's instructions. Swallow a delayed-release capsule or tablet whole. Do not crush, chew, break, or open it. Measure liquid medicine with the dosing syringe provided, or with a special dose-measuring spoon or medicine cup. If you do not have a dose-measuring device, ask your pharmacist for one. If you take doxycycline to prevent malaria: Start taking the medicine 1 or 2 days before entering an area where malaria is common. Continue taking the medicine every day during your stay and for at least 4 weeks after you leave the area. Doxycycline is usually given by injection only if you are unable to take the medicine by mouth. A healthcare provider will give you this injection as an infusion into a vein. Use this medicine for the full prescribed length of time, even if your symptoms quickly improve. Skipping doses can increase your risk of infection that is resistant to medication. Doxycycline will not treat a viral infection such as the flu or a common cold. Store at room temperature away from moisture, heat, and light. Throw away any unused medicine after the expiration date on the label has passed. Using doxycycline can cause damage to your kidneys. What happens if I miss a dose? Take the medicine as soon as you can, but skip the missed dose if it is almost time for your next dose. Do not take two doses at one time. What happens if I overdose? Seek emergency medical attention or call the Poison Help line at . What should I avoid while taking doxycycline? Do not take iron supplements, multivitamins, calcium supplements, antacids, or laxatives within 2 hours before or after taking doxycycline. Avoid taking any other antibiotics with doxycycline unless your doctor has told you to. Doxycycline could make you sunburn more easily. Avoid sunlight or tanning beds. Wear protective clothing and use sunscreen (SPF 30 or higher) when you are outdoors. Antibiotic medicines can cause diarrhea, which may be a sign of a new infection. If you have diarrhea that is watery or bloody, call your doctor. Do not use anti-diarrhea medicine unless your doctor tells you to. What are the possible side effects of doxycycline? Get emergency medical help if you have signs of an allergic reaction (hives, difficult breathing, swelling in your face or throat) or a severe skin reaction (fever, sore throat, burning in your eyes, skin pain, red or purple skin rash that spreads and causes blistering and peeling). Seek medical treatment if you have a serious drug reaction that can affect many parts of your body. Symptoms may include: skin rash, fever, swollen glands, flu-like symptoms, muscle aches, severe weakness, unusual bruising, or yellowing of your skin or eyes. This reaction may occur several weeks after you began using doxycycline. Call your doctor at once if you have: severe stomach pain, diarrhea that is watery or bloody; throat irritation, trouble swallowing; chest pain, irregular heart rhythm, feeling short of breath; little or no urination; low white blood cell counts--fever, chills, swollen glands, body aches, weakness, pale skin, easy bruising or bleeding; increased pressure inside the skull--severe headaches, ringing in your ears, dizziness, nausea, vision problems, pain behind your eyes; or signs of liver or pancreas problems--loss of appetite, upper stomach pain (that may spread to your back), tiredness, nausea or vomiting, fast heart rate, dark urine, jaundice (yellowing of the skin or eyes). Common side effects may include: nausea, vomiting, upset stomach, loss of appetite; mild diarrhea; skin rash or itching; darkened skin color; or vaginal itching or discharge. This is not a complete list of side effects and others may occur. Call your doctor for medical advice about side effects. You may report side effects to FDA at 8-398-JNL-3989. What other drugs will affect doxycycline? Sometimes it is not safe to use certain medications at the same time. Some drugs can affect your blood levels of other drugs you take, which may increase side effects or make the medications less effective. Other drugs may affect doxycycline, including prescription and siyd-ejt-uwzlogk medicines, vitamins, and herbal products. Tell your doctor about all your current medicines and any medicine you start or stop using. Where can I get more information? Your pharmacist can provide more information about doxycycline. Remember, keep this and all other medicines out of the reach of children, never share your medicines with others, and use this medication only for the indication prescribed. Every effort has been made to ensure that the information provided by [employer]. ('[employer]') is accurate, up-to-date, and complete, but no guarantee is made to that effect. Drug information contained herein may be time sensitive. Clinical Data information has been compiled for use by healthcare practitioners and consumers in the [place] and therefore Clinical Data does not warrant that uses outside of the [place] are appropriate, unless specifically indicated otherwise. [employer] drug information does not endorse drugs, diagnose patients or recommend therapy. [employer] drug information is an informational resource designed to assist licensed healthcare practitioners in caring for their patients and/or to serve consumers viewing this service as a supplement to, and not a substitute for, the expertise, skill, knowledge and judgment of healthcare practitioners. The absence of a warning for a given drug or drug combination in no way should be construed to indicate that the drug or drug combination is safe, effective or appropriate for any given patient. Clinical Data does not assume any responsibility for any aspect of healthcare administered with the aid of information Clinical Data provides. The information contained herein is not intended to cover all possible uses, directions, precautions, warnings, drug interactions, allergic reactions, or adverse effects. If you have questions about the drugs you are taking, check with your doctor, nurse or pharmacist. Copyright 3582-8531 [employer]. Version: 25.. Revision Date: 02/02/2023. Education Materials Athlete s Foot Athlete s foot (tinea pedis) is caused by a fungal infection in the skin. It affects the skin between the toes, causing cracks in the skin called fissures. It can also affect the bottom of the foot where it causes dry white scales and peeling of the skin. This infection is more likely to occur when the foot is in hot, sweaty socks and shoes for long periods of time. You may feel itching and burning between your toes. This infection is treated with skin creams or medicine taken by mouth. Home care The following are general care guidelines: It is important to keep the feet dry. Use absorbent cotton socks and change them if they become sweaty. Or wear an open-toe shoe or sandal. Wash the feet at least once a day with soap and water. Apply the antifungal cream as prescribed. Some antifungal creams are available without a prescription. It may take a week before the rash starts to improve. It can take about 3 to 4 weeks to completely clear. Continue the medicine until the rash is all gone. Use yiot-qbm-rfbdpll antifungal powders or sprays on your feet after exposure to high-risk environments, such as public showers, gyms, and locker rooms. This can help prevent future infections. Wearing appropriate shoes in these situations can help. Prevention The following tips may help prevent athlete s foot: Don't share shoes or socks with someone who has athlete's foot. Don't walk barefoot in places where a fungal infection can spread quickly such as locker rooms, showers, and swimming pools. Change socks regularly. Alternate shoes to assist in drying. Follow-up care Follow up with your healthcare provider as recommended if the rash does not improve after 10 days of treatment, or if the rash continues to spread. When to seek medical care Get medical attention right away if any of the following occur: Fever of 100.4 F (38 C) or higher, or as directed Increasing redness or swelling of the foot Infection comes back soon after treatment Pus draining from cracks in the skin [id number] [employer]. [address] [place] [id number]. All rights reserved. This information is not intended as a substitute for professional medical care. Always follow your healthcare professional's instructions. Abscess (Incision & Drainage) An abscess is sometimes called a boil. It happens when bacteria get trapped under the skin and start to grow. Pus forms inside the abscess as the body responds to the bacteria. An abscess can happen with an insect bite, ingrown hair, blocked oil gland, pimple, cyst, or puncture wound. Your healthcare provider has drained the pus from your abscess. If the abscess pocket was large, your healthcare provider may have put in gauze packing. Your provider will need to remove it on your next visit. He or she may also replace it at that time. You may not need antibiotics to treat a simple abscess, unless the infection is spreading into the skin around the wound (cellulitis). The wound will take about 1 to 2 weeks to heal, depending on the size of the abscess. Healthy tissue will grow from the bottom and sides of the opening until it seals over. Home care These tips can help your wound heal: The wound may drain for the first 2 days. Cover the wound with a clean dry dressing. Change the dressing if it becomes soaked with blood or pus. If a gauze packing was placed inside the abscess pocket, you may be told to remove it yourself. You may do this in the shower. Once the packing is removed, you should wash the area in the shower, or clean the area as directed by your provider. Continue to do this until the skin opening has closed. Make sure you wash your hands after changing the packing or cleaning the wound. If you were prescribed antibiotics, take them as directed until they are all gone. You may use acetaminophen or ibuprofen to control pain, unless another pain medicine was prescribed. If you have liver disease or ever had a stomach ulcer, talk with your doctor before using these medicines. Follow-up care Follow up with your healthcare provider, or as advised. If a gauze packing was put in your wound, it should be removed in 1 to 2 days. Check your wound every day for any signs that the infection is getting worse. The signs are listed below. When to seek medical advice Call your healthcare provider right away if any of these occur: Increasing redness or swelling Red streaks in the skin leading away from the wound Increasing local pain or swelling Continued pus draining from the wound 2 days after treatment Fever of 100.4 F (38 C) or higher, or as directed by your healthcare provider Boil returns when you are at home [phone] [employer]. [address] [place] [address], [place] [address]. All rights reserved. This information is not intended as a substitute for professional medical care. Always follow your healthcare professional's instructions. Additional Information VACCINATE! IT SAVES LIVES! Members of the community who have not yet received the COVID-19 vaccine and would like to receive it can visit one of [facility] vaccine clinics. There are many vaccine clinic locations within the [facility]. For locations and available times, please visit [email or web address].[email or web address] .gov/. It is important to note that some COVID mobile vaccine clinics are held outdoors and may be canceled in rainy or stormy conditions. To learn more about pediatric vaccinations (ages 5-11), we invite you to visit the [facility] webpage. [email or web address] To learn more about the COVID-19 vaccine, we invite you to visit the CDC website for a list of frequently asked questions. https://www.cdc.gov/coronavirus /2019-ncov/vaccines/faq.html [place] [facility] Patient Portal Access Instructions: Stay connected with your healthcare team and access your personal medical information anytime with the [facility] Patient Portal. If you would like a full copy of your medical records please contact the [facility] Medical Records Department Tuesday through Tuesday between 8a.m. and 4:30p.m. Please follow the directions below to access the portal: 1.Access the email account you provided upon registration to the hospital.2.Look for an invitation email from [facility].3.Open the email and access the invitation link: Accept Invitation to [facility]4.Fill in the required collier to create your account. Sign into www.[employer] with your username and password that you created in the above steps to stay up to date. You can then view a summary of results, a summary of your visits, and the ability to download your summaries to your computer or send the information securely to a physician. Remember that your healthcare information is confidential, so carefully consider who you will allow to register on the [facility] Patient Portal for access to your information. You can also access the [facility] Patient Portal on the [employer] paz. Simply click on Health Records under Health Data and then click on the [facility] logo. HOW TO SAFELY DISPOSE OF PRESCRIPTION MEDICATIONS Please use one of the following methods to safely dispose of your unused medications. 1.Use a drug disposal kit: the drug disposal pouch allows you to safely discard your old and unused drugs. Ask your nurse to give you one when you are discharged.2.Visit a local take-back location: Many local pharmacies and police departments have programs that collect old and unwanted prescription drugs. Call your local pharmacy or go to http://Kenshoo.Singular/4D8Pg6k to find one close to you.3.Make use of household items: Use cat litter or old coffee grounds to dispose medications if other options are not available. Mix your drugs with these household products, seal them in an airtight container and throw it into the garbage. Call [facility]: [phone] to be sure your drugs can be disposed of in this way. Some medicines may require a different approach.4.Never flush your medications down the toilet. IF YOU HAVE BEEN PRESCRIBED AN OPIOIDS FOR PAIN If you have been prescribed an opioid (such as hydrocodone, oxycodone or morphine), it is critical to understand the possible side effects and risks of opioid pain medications. Even when taken as directed, opioids can have several side effects including: Tolerance, meaning you might need to take more of a medication for the same pain relief. Nausea, vomiting and/or constipation. Sleepiness, dizziness, dry mouth, confusion, depression or itching. Physical dependence, meaning you have withdrawal symptoms when a medication is stopped ? this can develop within a few days. KNOW YOUR RESPONSIBILITIES It is important to know exactly how much and how often to take the opioid pain medications you are prescribed. Never take opioids in higher amounts or more often than prescribed. Do not combine opioids with alcohol or other drugs that cause drowsiness, such as benzodiazepines, also known as benzos, including diazepam and alprazolam, muscle relaxants or sleep aids. Never sell or share prescription opioids. This is illegal. Store opioids in a secure place and out of reach of others (including children, family, friends and visitors). The last page(s) of this document has been signed and retained as a CHART COPY Signatures Patient Education Materials Athlete s Foot Abscess, Incision And Drainage Medication Leaflets butenafine topical, cephalexin, doxycycline (oral/injection) My discharge plan and instructions have been reviewed and explained to me and I,JAVED REYES understand my current condition and have read and understand these discharge instructions. I have received a written copy of the plan/instructions. If I have questions, I am aware that I should contact my doctor. 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 Signature: Date/Time: Relationship to Patient: Witness Name/Signature: Date/Time: [facility] Evaluation + Plan note No data available for this section [facility] Evaluation note Diagnosis Displaced comminuted fracture of shaft of right fibula, initial encounter for closed fracture- Primary Displaced comminuted fracture of shaft of right fibula, initial encounter for closed fracture Alcohol use Other problems related to lifestyle Insomnia, unspecified type Cigarette smoker Tobacco use disorder Drug-induced constipation Other constipation Avulsion fracture of medial malleolus of right tibia Obesity Obesity, unspecified documented in this encounter [facility] Work Phone: Summary Purpose Family History No Family History Records Found No data available for this section No Family History Records FoundNo Family History Records FoundNo Family History Records Found Advance Directives Date Activated Date Inactivated Comments 11/01/2024 6:35 PM Question Answer Comments Plan of Care: Code Status Discussion Not Compl eted Decision Maker: Provider Rationale: Patient condition does not warra nt discussion Additional Source Comments (unrecognized sect ion and content) No Status Records FoundNo Status Records FoundNo Status Records FoundNo Status Records Found INFORMATION SOURCE (unrecogn ized section and content) DATE CREATED AUTHOR 09/03/2023 [facility] DATE CREATED AUTHOR AUTHOR'S ORGANIZ ATION 02/29/2024 [facility] DATE CREATED AUTHOR AUTHOR'S ORGANIZ ATION 04/17/2024 [facility] DATE CREATED AUTHOR AUTHOR'S ORGANIZ ATION 11/06/2024 [facility] Reason for Visit (unrecogniz ed section and content) Reason Comments Syncope Ankle Pain Specialty Diagnoses / Procedures Referred By Toby t Referred To Contact Diagnoses Displaced comminuted fracture of shaft of right fibula, [place] [address] [place] [address] Phone: tel: fax: [facility] [address] [place] [address] Phone: tel: fax: Referral ID Status Reason Start Date Expiration Date Visits Re quested Visits Authorized [id number] Scheduled Active and Recently Administ ered Medications (unrecognized section and content) Medication Order 11/04/2024 11/05/2024 11/06/2024 acetaminophen (Tylenol) tablet 975 mg 975 mg, oral, Every 6 hours scheduled, First dose on Zuly 11/01/24 at 1900, If ordered PRN for pain, nurse is permitted to administer this medication for higher pain scores based on patient preference? Yes 0034 (Given - Provider: Do Varela RN)0625 (Given - Provider: Do Varela RN)1200 (Not Given - Provider: Uziel Ibarra RN - Reason: Other - Comment: pt. sleeping)1809 (Given - Provider: Uziel Ibarra RN) 0051 (Given - Provider: Nika Morrell RN)0557 (Given - Provider: Nika Morrell RN)1347 (Given - Provider: Uziel Ibarra RN)1835 (Given - Provider: Uziel Ibarra RN)2328 (Not Given - Provider: Meghann Johnson RN - Reason: Other) 0524 (Given - Provider: Meghann Johnson RN)1204 (Given - Provider: Enoch Jean-Baptiste RN)1800 (Due) enoxaparin (Lovenox) syringe 30 mg 30 mg, subcutaneous, Every 12 hours, First dose on Zuly 11/01/24 at 1900 0624 (Given - Provider: Do Varela RN)1809 (Given - Provider: Uziel Ibarra RN) 0557 (Given - Provider: Nika Morrell RN)1835 (Given - Provider: Uziel Ibarra RN) 0830 (Given - Provider: Enoch Jean-Baptiste RN - Comment: rn work flow)1900 (Due) folic acid (Folvite) tablet 1 mg 1 mg, oral, Daily, First dose on Zuly 11/01/24 at 0900 0938 (Given - Provider: Uziel Ibarra RN) 0823 (Given - Provider: Enoch Jean-Baptiste RN) 0830 (Given - Provider: Enoch Jean-Baptiste RN) methocarbamol (Robaxin) tablet 500 mg 500 mg, oral, Every 6 hours scheduled, First dose on 11/05/24 at 1345 1347 (Given - Provider: Uziel Ibarra RN)1835 (Given - Provider: Uziel Ibarra RN)2328 (Given - Provider: Meghann Johnson RN) 0524 (Given - Provider: Meghann Johnson RN)1204 (Given - Provider: Enoch Jean-Baptiste RN)1800 (Due) multivitamin with minerals 1 tablet 1 tablet, oral, Daily, First dose on Zuly 11/01/24 at 0900 0938 (Given - Provider: Uziel Ibarra RN) 0823 (Given - Provider: Enoch Jean-Baptiste RN) 0830 (Given - Provider: Enoch Jean-Baptiste RN) nicotine (Nicoderm CQ) 14 mg/24 hr patch 1 patch 1 patch, transdermal, Administer over 24 Hours, Daily, First dose on 11/03/24 at 1245 0830 (Medication Removed - Provider: Uziel Ibarra RN)0938 (Medication Applied - Provider: Uziel Ibarra RN) 0824 (Medication Applied - Provider: Enoch Jean-Baptiste RN) 0827 (Medication Removed - Provider: Enoch Jean-Baptiste RN)0830 (Medication Applied - Provider: Enoch Jean-Baptiste RN) PHENobarbital (Luminal) tablet 32.4 mg (COMPLETED)(Linked Group 1) 32.4 mg, oral, 3 times daily, First dose on Tue11/04/24 at 0900, For 6 doses, Days 3 and 4 0938 (Given - Provider: Uziel Ibarra RN)1810 (Given - Provider: Uziel Ibarra RN)2303 (Given - Provider: Uziel Ibarra RN) 08 (Given - Provider: Enoch Jean-Baptiste RN)170 (Given - Provider: Uziel Ibarra RN)2118 (Given - Provider: Meghann Johnson RN) polyethylene glycol (Glycolax, Miralax) packet 17 g 17 g, oral, Daily, First dose on Zuly 11/01/24 at 1900, Bowel Regimen - for prevention of constipation. 0937 (Not Given - Provider: Uziel Ibarra RN - Reason: Patient/family refused - Comment: bm this morning) 0824 (Given - Provider: Enoch Jean-Baptiste, RIKY) 0830 (Given - Provider: Enoch Jean-Baptiste RN) thiamine (Vitamin B-1) tablet 100 mg 100 mg, oral, Daily, First dose on 11/04/24 at 0900, To start after three days of IV 0938 (Given - Provider: Uziel Ibarra RN) 0823 (Given - Provider: Enoch Jean-Baptiste RN) 0830 (Given - Provider: Enoch Jean-Baptiste RN) PRN Medication Order 11/04/2024 11/05/2024 11/06/2024 HYDROmorphone (Dilaudid) injection 0.2 mg (CANCELED) 0.2 mg, intravenous, Every 2 hour PRN, pain breakthrough, Starting on Zuly 11/01/24 at 1835 2111 (Given - Provider: Uziel Ibarra RN) melatonin tablet 3 mg 3 mg, oral, Nightly PRN, sleep, Starting on Zuly 11/01/24 at 1835 oxyCODONE (Roxicodone) immediate release tablet 10 mg 10 mg, oral, Every 4 hours PRN, pain severe (7-10), first line, Starting on Zuly 11/01/24 at 1835, If ordered PRN for pain, nurse is permitted to administer this medication for higher pain scores based on patient preference? Yes 0942 (Given - Provider: Uziel Ibarra RN)181 (Given - Provider: Uziel Ibarra RN) 101 (Given - Provider: Enoch Zabrocki, RN)1838 (Given - Provider: Uziel Ibarra, RIKY)2328 (Given - Provider: Meghann Johnson, RIKY) 0915 (Given - Provider: Enoch Jean-Baptiste RN) oxyCODONE (Roxicodone) immediate release tablet 5 mg 5 mg, oral, Every 6 hours PRN, pain moderate (4-6), first line, Starting on Zuly 11/01/24 at 1835, If ordered PRN for pain, nurse is permitted to administer this medication for higher pain scores based on patient preference? Yes 1458 (Return to Cabinet - Provider: Uziel Ibarra RN) 0058 (Given - Provider: Nika Morrell RN) oxygen (O2) therapy inhalation, Continuous PRN - O2/gases, other, Starting on Zuly 11/01/24 at 1835, Device: Nasal Cannula, Rate in liters per minute: 2 LPM, Keep O2 Sat Above: 92% PHENobarbital (Luminal) tablet 64.8 mg 64.8 mg, oral, Every 6 hours PRN, RASS >=2 (agitation) AND/OR >=2 of the LYNDA symptoms (SBP > 160 mmHG, HR >110bpm, diaphoresis, tremors, hallucinations), Starting on Zuly 11/01/24 at 0412 Linked Groups Order Group 1: PHENobarbital (Luminal) tablet 64.8 mg (COMPLETED) 64.8 mg, oral, 3 times daily, First dose on Tue11/02/24 at 0900, For 6 doses, Days 1 and 2 Followed by PHENobarbital (Luminal) tablet 32.4 mg (COMPLETED)Jump to med 32.4 mg, oral, 3 times daily, First dose on Tue11/04/24 at 0900, For 6 doses, Days 3 and 4 Care Teams (unrecognized sec tion and content) Preparation Department Supervisor Relationship Specialty Start Date End Date Generic Provider, No Assigned Pcp, [place] [address] PCP - General Flatwork Ironer 10/31/24 Sara Garcia, [facility] Hay BalerOutside Collector 11/06/24 FOR RECORDS PERTAINING TO PATIENTS WHO ARE OR HAVE BEEN ENROLLED IN A CHEMICAL DEPENDENCY/SUBSTANCEABUSE PROGRAM, SOME INFORMATION MAY BE OMITTED. This clinical summary was aggregated from multiple sources. Caution should be exercised in using it in the provision of clinical care. This summary normalizes information from multiple sources, and as a consequence, information in this document may materially change the coding, format and clinical context of patient data. In addition, data may be omitted in some cases. CLINICAL DECISIONS SHOULD BE BASED ON THE PRIMARY CLINICAL RECORDS. [facility] [employer] [facility]. provides no warranty or guarantee of the accuracy or completeness of information in this document.
--- OUTSIDE RECORDS SUMMARY | 2024-11-07 03:58 | XMS RPT_ITS | CCD ---
Author Organization [facility] Care Team Providers Care Proof Plate Maker Name Role Phone PHYSICIAN, NONE Primary Care [...] Propensity to adverse reactions (disorder) 9 Dust [facility] (1 source) Dust; Translations: [DUST] Propensity to adverse reactions (disorder) 9 [facility] Medications Current Medications Medication Drug Class(es) [...] 16 mg = 2.4 mg/kg 68.4 kg [place] weight), intramuscular, Once, On [place] 11/01/24 at 0415, For 1 dose polyethylene glycol 3350 15317 mg powder for oral solution (2 sources) Osmotic Laxative Start: 11-07-2024 polyethylene glycol (Glycolax, Miralax) 17 gram packet Indications: Drug-induced constipation Take 17 g by mouth once daily. 11/07/2024 Active Start: 11-01-2024 17 g, oral, Da alexandrea, First dose on [facility] 11/01/24 at 1900, Bowel Regimen - for prevention of constipation. thiamine 100 mg oral tablet (3 sources) Start: 11-07-2024 take 1 tablet by mouth once daily thiamine (Vitamin B-1) 100 mg tablet Indications: Alcohol use Take 1 tablet (100 mg) by mouth once daily. 11/07/2024 Active Start: 11-04-2024 100 mg, oral, Daily, First dose on [place] 11/04/24 at 0900, To start after three days of IV Start: 11-01-2024 End: 11-04-2024 100 mg, intravenous, Daily, First dose on [facility] 11/01/24 at 0900, For 3 doses, [...] hour 100 mL/hr, intravenous, Continuous, Starting on [facility] 11/01/24 at 1430, For 1 day, Recovery (only) Start: 11-01-2024 End: 11-01-2024 1,000 mL, intravenous, at 99 9 mL/hr, Administer over 1 Hours, Once, On [facility] 11/01/24 at 1055, For 1 dose ceFAZolin 2000 mg injection (1 source) Cephalosporin Antibacterial Start: 11-01-2024 End: 11-02-2024 take 2 g intravenously every eight hours 2 g, intravenous, Administer over 30 Minutes, Every 8 hours, First dose on [facility] 11/01/24 at 2100, For 2 doses, [...] [Ratio] 12.2 % 11.5 - 14.5 % [facility] Hematocrit (Bld) [Volume fraction] 42.7 % 41.0 - 52.0 % [facility] Hemoglobin (Bld) [Mass/Vol] 13.6 g/dL 13.5 - 17.5 g/dL [facility] Interpretation and review of laboratory results Abnormal [facility] MCH (RBC) [Entitic mass] 30 pg 26.0 - 34.0 pg [facility] MCHC (RBC) [Mass/Vol] 31.9 g/dL Low 32.0 - 36.0 g/dL [facility] MCV (RBC) [Entitic vol] 94 fL 80 - 100 fL [facility] Nucleated RBC/100 WBC (Bld) [Ratio] 0 % [facility] Platelets (Bld) [#/Vol] 174 10*3/uL [facility] RBC (Bld) [#/Vol] 4.54 10*6/uL [facility] WBC (Bld) [#/Vol] 8 10*3/uL [facility] Erythrocyte distribution width (RBC) [Ratio] 12.2 % Normal 11.5-14.5 [facility] Comment on above: Performed By: #### 5 8410-2 ####MIRANDA Sims ([id number])[facility] ([facility])[address] [place] [address] Hematocrit (Bld) [Volume fraction] 42.7 % Normal 41.0-52.0 [facility] Comment on above: Performed By: #### 5 8410-2 ####MIRANDA Sims ([id number])[facility] ([facility])[address] [place] [address] Hemoglobin (Bld) [Mass/Vol] 13.6 g/dL Normal 13.5-17.5 [facility] Comment on above: Performed By: #### 5 8410-2 ####MIRANDA Sims ([id number])[facility] ([facility])[address] [place] [address] MCH (RBC) [Entitic mass] 30.0 pg Normal 26.0-34.0 [facility] Comment on above: Performed By: #### 5 8410-2 ####MIRANDA Sims ([id number])[facility] ([facility])[address] [place] [address] MCHC (RBC) [Mass/Vol] 31.9 g/dL Low 32.0-36.0 [facility] Comment on above: Performed By: #### 5 8410-2 ####MIRANDA Sims ([id number])[facility] ([facility])[address] [place] [address] MCV (RBC) [Entitic vol] 94 fL Normal 80-100 [facility] Comment on above: Performed By: #### 5 8410-2 ####MIRANDA Sims ([id number])[facility] ([facility])[address] [place] [address] Nucleated RBC/100 WBC (Bld) [Ratio] 0.0 /100 WBCs Normal 0.0-0.0 [facility] Comment on above: Performed By: #### 5 8410-2 ####MIRANDA Sims ([id number])[facility] ([facility])[address] [place] [address] Platelets (Bld) [#/Vol] 174 x10*3/uL Normal 150-450 [facility] Comment on above: Performed By: #### 5 8410-2 ####MIRANDA Sims ([id number])[facility] ([facility])[address] [place] [address] RBC (Bld) [#/Vol] 4.54 x10*6/uL Normal 4.50-5.90 [facility] Comment on above: Performed By: #### 5 8410-2 ####MIRANDA Sims ([id number])[facility] ([facility])[address] [place] [address] WBC (Bld) [#/Vol] 8.0 x10*3/uL Normal 4.4-11.3 [facility] Comment on above: Performed By: #### 5 8410-2 ####MIRANDA Sims ([id number])[facility] ([facility])[address] [place] [address] CBC panel Auto (Bld)on 11-02 Erythrocyte distribution width (RBC) [Ratio] 12.1 % 11.5 - 14.5 % [facility] Hematocrit (Bld) [Volume fraction] 41.3 % 41.0 - 52.0 % [facility] Hemoglobin (Bld) [Mass/Vol] 13.6 g/dL 13.5 - 17.5 g/dL [facility] Interpretation and review of laboratory results Abnormal [facility] MCH (RBC) [Entitic mass] 29.8 pg 26.0 - 34.0 pg [facility] MCHC (RBC) [Mass/Vol] 32.9 g/dL 32.0 - 36.0 g/dL [facility] MCV (RBC) [Entitic vol] 90 fL 80 - 100 fL [facility] Nucleated RBC/100 WBC (Bld) [Ratio] 0 % [facility] Platelets (Bld) [#/Vol] 209 10*3/uL [facility] RBC (Bld) [#/Vol] 4.57 10*6/uL [facility] WBC (Bld) [#/Vol] 13.9 10*3/uL [facility] Erythrocyte distribution width (RBC) [Ratio] 12.1 % Normal 11.5-14.5 [facility] Comment on above: Performed By: #### 5 8410-2 ####MIRANDA Sims ([id number])[facility] ([facility])[address] [place] [address] Hematocrit (Bld) [Volume fraction] 41.3 % Normal 41.0-52.0 [facility] Comment on above: Performed By: #### 5 8410-2 ####MIRANDA Sims ([id number])[facility] ([facility])[address] [place] [address] Hemoglobin (Bld) [Mass/Vol] 13.6 g/dL Normal 13.5-17.5 [facility] Comment on above: Performed By: #### 5 8410-2 ####MIRANDA Sims ([id number])[facility] ([facility])[address] [place] [address] MCH (RBC) [Entitic mass] 29.8 pg Normal 26.0-34.0 [facility] Comment on above: Performed By: #### 5 8410-2 ####MIRANDA Sims ([id number])[facility] ([facility])[address] [place] [address] MCHC (RBC) [Mass/Vol] 32.9 g/dL Normal 32.0-36.0 [facility] Comment on above: Performed By: #### 5 8410-2 ####MIRANDA Sims ([id number])[facility] ([facility])[address] [place] [address] MCV (RBC) [Entitic vol] 90 fL Normal 80-100 [facility] Comment on above: Performed By: #### 5 8410-2 ####MIRANDA Sims ([id number])[facility] ([facility])[address] [place] [address] Nucleated RBC/100 WBC (Bld) [Ratio] 0.0 /100 WBCs Normal 0.0-0.0 [facility] Comment on above: Performed By: #### 5 8410-2 ####MIRANDA Sims ([id number])[facility] ([facility])[address] [place] [address] Platelets (Bld) [#/Vol] 209 x10*3/uL Normal 150-450 [facility] Comment on above: Performed By: #### 5 8410-2 ####MIRANDA Sims ([id number])[facility] ([facility])[address] [place] [address] RBC (Bld) [#/Vol] 4.57 x10*6/uL Normal 4.50-5.90 [facility] Comment on above: Performed By: #### 5 8410-2 ####MIRANDACHATO ARANDABETTYE L ([id number])[facility] ([facility])[address] [place] [address] WBC (Bld) [#/Vol] 13.9 x10*3/uL High 4.4-11.3 [facility] Comment on above: Performed By: #### 5 8410-2 ####MIRANDA ROSIBETTYE L ([id number])[facility] ([facility])[address] [place] [address] Renal function 2000 panelon 11-02-2024 Albumin BCP dye [Mass/Vol] 3.9 g/dL 3.4 - 5.0 g/dL [facility] Anion gap [Moles/Vol] 14 mmol/L 10 - 20 mmol/L [facility] Calcium [Mass/Vol] 8.9 mg/dL 8.6 - 10. 6 mg/dL [facility] Chloride [Moles/Vol] 100 mmol/L 98 - 10 7 mmol/L [facility] CO2 [Moles/Vol] 28 mmol/L 21 - 32 mmol/L [facility] Creatinine [Mass/Vol] 1.02 mg/dL 0.50 - 1.30 mg/dL [facility] eGFR - PINF [facility] Comment on above: Calculations of davey mated GFR are performed using the 2020 CKD-EPI Study Refit equation without the race variable for the IDMS-Traceable creatinine methods. https://jasn.asnjournals.org/content//ASN.15572 94051 Glucose [Mass/Vol] 170 mg/dL High 74 - 99 mg/dL [facility] Interpretation and review of laboratory results Abnormal [facility] Phosphate [Mass/Vol] 3.3 mg/dL 2.5 - 4 .9 mg/dL [facility] Potassium [Moles/Vol] 4.2 mmol/L 3.5 - 5.3 mmol/L [facility] Sodium [Moles/Vol] 138 mmol/L 136 - 145 mmol/L [facility] Urea nitrogen [Mass/Vol] 14 mg/dL 6 - 23 mg/dL [facility] Albumin BCP dye [Mass/Vol] 3.9 g/dL Normal 3.4-5.0 [facility] Comment on above: Performed By: #### 2 4362-6 ####MIRANDA Sims ([id number])[facility] ([facility])[address] [place] [address] Anion gap [Moles/Vol] 14 mmol/L Normal 10-20 [facility] Comment on above: Performed By: #### 2 4362-6 ####MIRANDA Sims ([id number])[facility] ([facility])[address] [place] [address] Calcium [Mass/Vol] 8.9 mg/dL Normal 8.6-10.6 [facility] Comment on above: Performed By: #### 2 4362-6 ####MIRANDA Sims ([id number])[facility] ([facility])[address] [place] [address] Chloride [Moles/Vol] 100 mmol/L Normal 98-107 [facility] Comment on above: Performed By: #### 2 4362-6 ####MIRANDA Sims ([id number])[facility] ([facility])[address] [place] [address] CO2 [Moles/Vol] 28 mmol/L Normal 21-32 [facility] Comment on above: Performed By: #### 2 4362-6 ####MIRANDA Sims ([id number])[facility] ([facility])[address] [place] [address] Creatinine [Mass/Vol] 1.02 mg/dL Normal 0.50-1.30 [facility] Comment on above: Performed By: #### 2 4362-6 ####MIRANDA Sims ([id number])[facility] ([facility])[address] [place] [address] GFR/1.73 sq M.predicted MDRD (S/P/Bld) [Vol rate/Area] mL/min/{1.73_m2} Normal >60 [facility] Comment on above: Result Comment: Calc ulations of estimated GFR are performed using the 2020 CKD-EPI Study Refit equation without the race variable for the IDMS-Traceable creatinine methods. https://jasn.asnjournals.org/content/early/ASN.32833 88887 Performed By: #### 2 4362-6 ####MIRANDA Sims ([id number])[facility] ([facility])[address] [place] [address] Glucose [Mass/Vol] 170 mg/dL High 74-99 [facility] Comment on above: Performed By: #### 2 4362-6 ####MIRANDA Sims ([id number])[facility] ([facility])[address] [place] [address] Phosphate [Mass/Vol] 3.3 mg/dL Normal 2.5-4.9 [facility] Comment on above: Performed By: #### 2 4362-6 ####MIRANDA Sims ([id number])[facility] ([facility])[address] [place] [address] Potassium [Moles/Vol] 4.2 mmol/L Normal 3.5-5.3 [facility] Comment on above: Performed By: #### 2 4362-6 ####MIRANDA GONZALEZ L ([id number])[facility] ([facility])[address] [place] [address] Sodium [Moles/Vol] 138 mmol/L Normal 136-145 [facility] Comment on above: Performed By: #### 2 4362-6 ####MIRANDA GONZALEZ L ([id number])[facility] ([facility])[address] [place] [address] Urea nitrogen [Mass/Vol] 14 mg/dL Normal 6-23 [facility] Comment on above: Performed By: #### 2 4362-6 ####MIRANDA Sims ([id number])[facility] ([facility])[address] [place] [address] TSH WITH REFLEX TO FREE T4 I F ABNORMALon 11-02-2024 TSH Qn 1.52 m[IU]/L Normal 0.44-3.98 [facility] Comment on above: Order Comment: TSH t esting is performed using different testing methodology at [facility] than [facility]. Direct result comparisons should only be made within the same method. Performed By: #### T HYDS ####MIRANDA Sims ([id number])[facility] ([facility])[address] [place] [address] TSH with reflex to Free T4 i f abnormalon 11-02-2024 Interpretation and review of laboratory results Normal [facility] TSH Qn 1.52 m[IU]/L [facility] TSH testing is performed using different testing methodology at [facility] than [facility]. Direct result comparisons should only be made within the same method. [facility] Blood type and Indirect anti body screen panel (Bld)on 11-01-2024 ABO group Nom (Bld) A [facility] Blood group antibody screen Ql Negative [facility] D Ag Ql (Bld) Positive [facility] CBC panel Auto (Bld)on 11-01 Erythrocyte distribution width (RBC) [Ratio] 12.3 % 11.5 - 14.5 % [facility] Hematocrit (Bld) [Volume fraction] 45.5 % 41.0 - 52.0 % [facility] Hemoglobin (Bld) [Mass/Vol] 15.2 g/dL 13.5 - 17.5 g/dL [facility] Interpretation and review of laboratory results Normal [facility] MCH (RBC) [Entitic mass] 30.4 pg 26.0 - 34.0 pg [facility] MCHC (RBC) [Mass/Vol] 33.4 g/dL 32.0 - 36.0 g/dL [facility] MCV (RBC) [Entitic vol] 91 fL 80 - 100 fL [facility] Nucleated RBC/100 WBC (Bld) [Ratio] 0 % [facility] Platelets (Bld) [#/Vol] 204 10*3/uL [facility] RBC (Bld) [#/Vol] 5 10*6/uL [facility] WBC (Bld) [#/Vol] 10.2 10*3/uL [facility] Erythrocyte distribution width (RBC) [Ratio] 12.3 % Normal 11.5-14.5 [facility] Comment on above: Performed By: #### 5 8410-2 ####MIRANDA Sims ([id number])[facility] ([facility])[address] [place] [address] Hematocrit (Bld) [Volume fraction] 45.5 % Normal 41.0-52.0 [facility] Comment on above: Performed By: #### 5 8410-2 ####MIRANDA Sims ([id number])[facility] ([facility])[address] [place] [address] Hemoglobin (Bld) [Mass/Vol] 15.2 g/dL Normal 13.5-17.5 [facility] Comment on above: Performed By: #### 5 8410-2 ####MIRANDA Sims ([id number])[facility] ([facility])[address] [place] [address] MCH (RBC) [Entitic mass] 30.4 pg Normal 26.0-34.0 [facility] Comment on above: Performed By: #### 5 8410-2 ####MIRANDA Sims ([id number])[facility] ([facility])[address] [place] [address] MCHC (RBC) [Mass/Vol] 33.4 g/dL Normal 32.0-36.0 [facility] Comment on above: Performed By: #### 5 8410-2 ####MIRANDA GONZALEZ L ([id number])[facility] ([facility])[address] [place] [address] MCV (RBC) [Entitic vol] 91 fL Normal 80-100 [facility] Comment on above: Performed By: #### 5 8410-2 ####MIRANDA STEVEMODEEPA L ([id number])[facility] ([facility])[address] [place] [address] Nucleated RBC/100 WBC (Bld) [Ratio] 0.0 /100 WBCs Normal 0.0-0.0 [facility] Comment on above: Performed By: #### 5 8410-2 ####MIRANDA GONZALEZ L ([id number])[facility] ([facility])[address] [place] [address] Platelets (Bld) [#/Vol] 204 x10*3/uL Normal 150-450 [facility] Comment on above: Performed By: #### 5 8410-2 ####MIRANDA STEVEMODEEPA L ([id number])[facility] ([facility])[address] [place] [address] RBC (Bld) [#/Vol] 5.00 x10*6/uL Normal 4.50-5.90 [facility] Comment on above: Performed By: #### 5 8410-2 ####MIRANDA STEVEMOTZBETTYE L ([id number])[facility] ([facility])[address] [place] [address] WBC (Bld) [#/Vol] 10.2 x10*3/uL Normal 4.4-11.3 [facility] Comment on above: Performed By: #### 5 8410-2 ####MIRANDA STEVEMOTZER L ([id number])[facility] ([facility])[address] [place] [address] Cervical spine WO contras ton 11-01-2024 1. No acute fracture or traumatic malalignment of the cervical spine. I personally reviewed the images/study and resident's interpretation and I agree with the findings as stated by Anisa Mena MD (resident radiologist). This study was analyzed and interpreted at [place], [place]. MACRO: None. Signed by: Julián Mendez 11/01/2024 1:04 AM Dictation workstation: [id number] MMODAL Interpreted By: Juláin Mendez and Hofer Lindsay STUDY: CT CERVICAL SPINE WO IV CONTRAST; 11/01/2024 12:31 am INDICATION: Signs/Symptoms:fall/s eizure. COMPARISON: None. ACCESSION NUMBER(S): [id number] ORDERING CLINICIAN: EDNA CHOUDHARY TECHNIQUE: Axial noncontrast [...] INDICATION: Signs/Symptoms:fall/s eizure. COMPARISON: None. ACCESSION NUMBER(S): [id number] ORDERING CLINICIAN: EDNA CHOUDHARY TECHNIQUE: Axial noncontrast [...] This study was analyzed and interpreted at [facility], [place], [place]. MACRO: None. Signed by: Julián Mendez 11/01/2024 1:04 AM Dictation workstation: [id number] [facility] Work Phone: [facility] Work Phone: Creatine Kinaseon 11-01-2024 CK [Catalytic activity/Vol] 56 U/L 0 - 325 U/L [facility] Creatine kinaseon 11-01-2024 CK [Catalytic activity/Vol] 56 U/L Normal 0-325 [facility] Comment on above: Performed By: #### 2 157-6 ####MIRANDA Sims ([id number])[facility] ([facility])[address] [place] [address] DRUG SCREEN,URINEon 11-02-19 25 Amphetamines Screen Ql (U) Negative Presumptive Negative [facility] Comment on above: CUTOFF LEVEL: 500 NG /ML Cross-reactivity has been reported with high concentrations of the following drugs: buproprion, chloroquine, chlorpromazine, ephedrine, mephentermine, fenfluramine, phentermine, phenylpropanolamine, pseudoephedrine, and propranolol. Barbiturates Screen Ql (U) Negative Presumptive Negative [facility] Comment on above: CUTOFF LEVEL: 200 NG /ML Benzodiazepines Ql (U) Negative Presu mptive Negative [facility] Comment on above: CUTOFF LEVEL: 200 NG /ML Benzoylecgonine Screen Ql (U) Positive Abnormal Presumptive Negative [facility] Comment on above: CUTOFF LEVEL: 150 NG /ML Cannabinoids Screen Ql (U) Positive Abnormal Presumptive Negative [facility] Comment on above: CUTOFF LEVEL: 50 NG/ ML fentaNYL+Norfentanyl Screen Ql (U) Negative Presumptive Negative [facility] Comment on above: CUTOFF LEVEL: 5 NG/M L Interpretation and review of laboratory results Abnormal [facility] Methadone Screen Ql (U) Negative Presumptive Negative [facility] Comment on above: CUTOFF LEVEL: 150 NG /ML The metabolite K-athaj-[id number] (LAAM) is not detected by this method in concentrations that would be found in the urine of patients on LAAM therapy. Opiates Screen Ql (U) Negative Presum ptive Negative [facility] Comment on above: CUTOFF LEVEL: 300 NG /ML The opiate screen does not detect fentanyl, meperidine, or tramadol. Oxycodone is not consistently detected (refer to Oxycodone Screen, Urine result). oxyCODONE+oxyMORphone Screen Ql (U) Negative Presumptive Negative [facility] Comment on above: CUTOFF LEVEL: 100 NG /ML This test will accurately detect both oxycodone and oxymorphone. Phencyclidine Ql (U) Negative Presump tive Negative [facility] Comment on above: CUTOFF LEVEL: 25 NG/ ML Cross-reactivity has been reported with dextromethorphan. Drug screen results are presumptive and should not be used to assess compliance with prescribed medication. Contact the performing [facility] laboratory to add-on definitive confirmatory testing if [...] be directed to the laboratory medical directors. [facility] Amphetamines Screen Ql (U) Negative Normal Presumptive Negative [facility] Comment on above: Order Comment: Drug screen results are presumptive and should not be used to assesscompliance with prescribed medication. Contact the performing [facility] laboratoryto add-on definitive confirmatory testing if clinically [...] Performed By: #### D RUG3 ####MIRANDA Sims ([id number])[facility] ([facility])[address] [place] [address] Barbiturates Screen Ql (U) Negative Normal Presumptive Negative [facility] Comment on above: Order Comment: Drug screen results are presumptive and should not be used to assesscompliance with prescribed medication. Contact the performing [facility] laboratoryto add-on definitive confirmatory testing if clinically [...] Performed By: #### D RUG3 ####MIRANDA Sims ([id number])[facility] ([facility])[address] [place], [place] [id number] Benzodiazepines Ql (U) Negative Normal Presu mptive Negative [facility] Comment on above: Order Comment: Drug screen results are presumptive and should not be used to assesscompliance with prescribed medication. Contact the performing [facility] laboratoryto add-on definitive confirmatory testing if clinically [...] Performed By: #### D RUG3 ####MIRANDA Sims ([id number])[facility] ([facility])[address] [place] [address] Benzoylecgonine Screen Ql (U) Positive Abnormal Presumptive Negative [facility] Comment on above: Order Comment: Drug screen results are presumptive and should not be used to assesscompliance with prescribed medication. Contact the performing [facility] laboratoryto add-on definitive confirmatory testing if clinically [...] Performed By: #### D RUG3 ####MIRANDA Sims ([id number])[facility] ([facility])[address] [place], [place] [address] Cannabinoids Screen Ql (U) Positive Abnormal Presumptive Negative [facility] Comment on above: Order Comment: Drug screen results are presumptive and should not be used to assesscompliance with prescribed medication. Contact the performing [facility] laboratoryto add-on definitive confirmatory testing if clinically [...] By: #### D RUG3 ####MIRANDA ARANDAER L ([id number])[facility] ([facility])[address] [place] [address] fentaNYL+Norfentanyl Screen Ql (U) Negative Normal Presumptive Negative [facility] Comment on above: Order Comment: Drug screen results are presumptive and should not be used to assesscompliance with prescribed medication. Contact the performing [facility] laboratoryto add-on definitive confirmatory testing if clinically [...] By: #### D RUG3 ####MIRANDA ARANDAER L ([id number])[facility] ([facility])[address] [place], [place] [id number] Methadone Screen Ql (U) Negative Normal Presumptive Negative [facility] Comment on above: Order Comment: Drug screen results are presumptive and should not be used to assesscompliance with prescribed medication. Contact the performing [facility] laboratoryto add-on definitive confirmatory testing if clinically [...] CUTO FF LEVEL: 150 NG/ML The metabolite Y-fauof-jwrhvpjojjydtx (LAAM) is not detected by this method in concentrations that would be found in the urine of patients on LAAM therapy. Performed By: #### D RUG3 ####MIRANDA Sims ([id number])[facility] ([facility])[address] [place], [place] [address] Opiates Screen Ql (U) Negative Normal Presum ptive Negative [facility] Comment on above: Order Comment: Drug screen results are presumptive and should not be used to assesscompliance with prescribed medication. Contact the performing [facility] laboratoryto add-on definitive confirmatory testing if clinically [...] Performed By: #### D RUG3 ####MIRANDA Sims ([id number])[facility] ([facility])[address] [place], [place] [address] oxyCODONE+oxyMORphone Screen Ql (U) Negative Normal Presumptive Negative [facility] Comment on above: Order Comment: Drug screen results are presumptive and should not be used to assesscompliance with prescribed medication. Contact the performing [facility] laboratoryto add-on definitive confirmatory testing if clinically [...] Performed By: #### [place] RUG3 ####MIRANDA Sims ([id number])[facility] ([facility])[address] [place] [address] Phencyclidine Ql (U) Negative Normal Presump tive Negative [facility] Comment on above: Order Comment: Drug screen results are presumptive and should not be used to assesscompliance with prescribed medication. Contact the performing [facility] laboratoryto add-on definitive confirmatory testing if clinically [...] Performed By: #### [place] RUG3 ####MIRANDA Sims ([id number])[facility] ([facility])[address] [place] [address] FL FLUORO IMAGES NO CHARGEon 11-01-2024 FL FLUORO IMAGES NO CHARGE These images are not reportable by radiology and will not be interpreted by Radiologists. Normal [facility] Lactateon 11-01-2024 Lactate [Moles/Vol] 1.2 mmol/L 0.4 - 2. 0 mmol/L [facility] Lactate [Moles/Vol] 1.2 mmol/L Normal 0.4-2.0 [facility] Comment on above: Order Comment: Venip uncture immediately after or during the administration of Metamizole may lead to falsely low results. Testing should be performed immediately prior to Metamizole dosing. Performed By: #### 2 524-7 ####MIRANDA Sims ([id number])[facility] ([facility])[address] [place] [address] Lactate [Moles/Vol]on 2024 Venipuncture immediately after or during the administration of Metamizole may lead to falsely low results. Testing should be performed immediately prior to Metamizole dosing. [facility] No Panel Informationon 11-01 Interpretation and review of laboratory results Normal [facility] CT CHEST/ABDOMEN/PELVIS: *No acute traumatic injury. CT THORACIC AND LUMBAR SPINE: *No acute fracture or traumatic malalignment. I personally reviewed the images/study and I agree with the findings as stated by resident Horacio Loera. This study was interpreted at [place], [place]. MACRO: None. Signed by: Julián Mendez 11/01/2024 1:14 AM Dictation workstation: [id number] [facility] Interpreted By: Julián Mendez and Ritchie Brandon STUDY: CT CHEST ABDOMEN PELVIS W IV CONTRAST; CT THORACIC SPINE RETROSPECTIVE RECONSTRUCTION PROTOCOL; CT LUMBAR SPINE RETROSPECTIVE RECONSTRUCTION PROTOCOL; 11/01/2024 12:31 am INDICATION: Signs/Symptoms:fall/s eizure. COMPARISON: Radiograph of the chest 10/31/2024. ACCESSION NUMBER(S): [id number]; [id number]; [id number] ORDERING CLINICIAN: EDNA CHOUDHARY TECHNIQUE: Contiguous axial [...] Radiograph of the chest 10/31/2024. ACCESSION NUMBER(S): [id number]; [id number]; [id number] ORDERING CLINICIAN: EDNA CHOUDHARY TECHNIQUE: Contiguous axial [...] Horacio Loera. This study was interpreted at [place], [place]. MACRO: None. Signed by: Julián Mendez 11/01/2024 1:14 AM Dictation workstation: [id number] [facility] Work Phone: [facility] Work Phone: Radiology Study observation (narrative) [facility] Work Phone: Renal function 2000 panelon 11-01-2024 Albumin BCP dye [Mass/Vol] 4.4 g/dL 3.4 - 5.0 g/dL [facility] Anion gap [Moles/Vol] 12 mmol/L 10 - 20 mmol/L [facility] Calcium [Mass/Vol] 9.2 mg/dL 8.6 - 10. 6 mg/dL [facility] Chloride [Moles/Vol] 102 mmol/L 98 - 10 7 mmol/L [facility] CO2 [Moles/Vol] 28 mmol/L 21 - 32 mmol/L [facility] Creatinine [Mass/Vol] 0.9 mg/dL 0.50 - 1.30 mg/dL [facility] eGFR - PINF [facility] Comment on above: Calculations of davey mated GFR are performed using the 2020 CKD-EPI Study Refit equation without the race variable for the IDMS-Traceable creatinine methods. https://jasn.asnjournals.org/content//ASN.66778 68633 Glucose [Mass/Vol] 102 mg/dL High 74 - 99 mg/dL [facility] Interpretation and review of laboratory results Abnormal [facility] Phosphate [Mass/Vol] 3.5 mg/dL 2.5 - 4 .9 mg/dL [facility] Potassium [Moles/Vol] 4.5 mmol/L 3.5 - 5.3 mmol/L [facility] Sodium [Moles/Vol] 137 mmol/L 136 - 145 mmol/L [facility] Urea nitrogen [Mass/Vol] 13 mg/dL 6 - 23 mg/dL [facility] Albumin BCP dye [Mass/Vol] 4.4 g/dL Normal 3.4-5.0 [facility] Comment on above: Performed By: #### 2 4362-6 ####MIRANDA Sims ([id number])[facility] ([facility])[address] [place] [address] Anion gap [Moles/Vol] 12 mmol/L Normal 10-20 [facility] Comment on above: Performed By: #### 2 4362-6 ####MIRANDA GONZALEZ L ([id number])[facility] ([facility])[address] [place] [address] Calcium [Mass/Vol] 9.2 mg/dL Normal 8.6-10.6 [facility] Comment on above: Performed By: #### 2 4362-6 ####MIRANDA Sims ([id number])[facility] ([facility])[address] [place] [address] Chloride [Moles/Vol] 102 mmol/L Normal 98-107 [facility] Comment on above: Performed By: #### 2 4362-6 ####MIRANDA GONZALEZ L ([id number])[facility] ([facility])[address] [place] [address] CO2 [Moles/Vol] 28 mmol/L Normal 21-32 [facility] Comment on above: Performed By: #### 2 4362-6 ####MIRANDA GONZALEZ L ([id number])[facility] ([facility])[address] [place] [address] Creatinine [Mass/Vol] 0.90 mg/dL Normal 0.50-1.30 [facility] Comment on above: Performed By: #### 2 4362-6 ####MIRANDA GONZALEZ L ([id number])[facility] ([facility])[address] [place] [address] GFR/1.73 sq M.predicted MDRD (S/P/Bld) [Vol rate/Area] mL/min/{1.73_m2} Normal >60 [facility] Comment on above: Result Comment: Calc ulations of estimated GFR are performed using the 2020 CKD-EPI Study Refit equation without the race variable for the IDMS-Traceable creatinine methods. https://jasn.asnjournals.org/content//ASN.32391 25488 Performed By: #### 2 4362-6 ####MIRANDA Sims ([id number])[facility] ([facility])[address] [place] [address] Glucose [Mass/Vol] 102 mg/dL High 74-99 [facility] Comment on above: Performed By: #### 2 4362-6 ####MIRANDA Sims ([id number])[facility] ([facility])[address] [place] [address] Phosphate [Mass/Vol] 3.5 mg/dL Normal 2.5-4.9 [facility] Comment on above: Performed By: #### 2 4362-6 ####MIRANDA Sims ([id number])[facility] ([facility])[address] [place] [address] Potassium [Moles/Vol] 4.5 mmol/L Normal 3.5-5.3 [facility] Comment on above: Performed By: #### 2 4362-6 ####MIRANDA GONZALEZ L ([id number])[facility] ([facility])[address] [place] [address] Sodium [Moles/Vol] 137 mmol/L Normal 136-145 [facility] Comment on above: Performed By: #### 2 4362-6 ####MIRANDA GONZALEZ L ([id number])[facility] ([facility])[address] [place] [address] Urea nitrogen [Mass/Vol] 13 mg/dL Normal 6-23 [facility] Comment on above: Performed By: #### 2 4362-6 ####MIRANDA STEVEMOTZBETTYE L ([id number])[facility] ([facility])[address] [place] [address] XR tomography Unspecified vanessa dy regionon 11-01-2024 These images are not reportable by radiology and will not be interpreted by Radiologists. IMAGING Blood type and Indirect anti body screen panel (Bld)on 10-31-2024 ABO group Nom (Bld) A Normal [facility] Comment on above: Performed By: #### 3 4532-2 ####MIRANDA Sims ([id number])[facility] ([facility])[address] [place] [address] Blood group antibody screen Ql Negative Normal [facility] Comment on above: Performed By: #### 3 4532-2 ####MIRANDA Sims ([id number])[facility] [place] [address] D Ag Ql (Bld) Positive [facility] Comment on above: Performed By: #### 3 4532-2 ####MIRANDA Sims ([id number])[facility] ([facility])[address] [place] [address] CBC W Auto Differential pane l (Bld)on 10-31-2024 Basophils (Bld) [#/Vol] 0.07 10*3/uL [facility] Basophils/100 WBC (Bld) 0.5 % 0.0 - 2.0 % [facility] Eosinophils (Bld) [#/Vol] 0.09 10*3/uL [facility] Eosinophils/100 WBC (Bld) 0.7 % 0.0 - 6.0 % [facility] Erythrocyte distribution width (RBC) [Ratio] 12 % 11.5 - 14.5 % [facility] Hematocrit (Bld) [Volume fraction] 45.9 % 41.0 - 52.0 % [facility] Hemoglobin (Bld) [Mass/Vol] 16.3 g/dL 13.5 - 17.5 g/dL [facility] Immature granulocytes (Bld) [#/Vol] 0.09 10*3/uL [facility] Immature granulocytes/100 WBC (Bld) 0.7 % 0.0 - 0.9 % [facility] Comment on above: Immature Granulocyte Count (IG) includes promyelocytes, myelocytes and metamyelocytes but does not include bands. Percent differential counts (%) should be interpreted in the context of the absolute cell counts (cells/UL). Interpretation and review of laboratory results Abnormal [facility] Lymphocytes (Bld) [#/Vol] 2.28 10*3/uL [facility] Lymphocytes/100 WBC (Bld) 16.5 % 13.0 - 44.0 % [facility] MCH (RBC) [Entitic mass] 30.2 pg 26.0 - 34.0 pg [facility] MCHC (RBC) [Mass/Vol] 35.5 g/dL 32.0 - 36.0 g/dL [facility] MCV (RBC) [Entitic vol] 85 fL 80 - 100 fL [facility] Monocytes (Bld) [#/Vol] 0.96 10*3/uL [facility] Monocytes/100 WBC (Bld) 7 % 2.0 - 10.0 % [facility] Neutrophils (Bld) [#/Vol] 10.32 10*3/uL High [facility] Comment on above: Percent differential counts (%) should be interpreted in the context of the absolute cell counts (cells/uL). Neutrophils/100 WBC (Bld) 74.6 % 40.0 - 80.0 % [facility] Nucleated RBC/100 WBC (Bld) [Ratio] 0 % [facility] Platelets (Bld) [#/Vol] 230 10*3/uL [facility] RBC (Bld) [#/Vol] 5.4 10*6/uL [facility] WBC (Bld) [#/Vol] 13.8 10*3/uL [facility] Basophils (Bld) [#/Vol] 0.07 x10*3/uL Normal 0.00-0.10 [facility] Comment on above: Performed By: #### 5 7021-8 #### MIRANDA Sims ([id number]) [facility] ([facility]) [address] [place] [address] Basophils/100 WBC (Bld) 0.5 % Normal 0.0-2.0 [facility] Comment on above: Performed By: #### 5 7021-8 #### MIRANDA Sims ([id number]) [facility] ([facility]) [address] [place] [address] Eosinophils (Bld) [#/Vol] 0.09 x10*3/uL Normal 0.00-0.70 [facility] Comment on above: Performed By: #### 5 7021-8 #### MIRANDA Sims ([id number]) [facility] ([facility]) [address] [place] [address] Eosinophils/100 WBC (Bld) 0.7 % Normal 0.0-6.0 [facility] Comment on above: Performed By: #### 5 7021-8 #### MIRANDA Sims ([id number]) [facility] ([facility]) [address] [place] [address] 269[address] Erythrocyte distribution width (RBC) [Ratio] 12.0 % Normal 11.5-14.5 [facility] Comment on above: Performed By: #### 5 7021-8 #### MIRANDA Sims ([id number]) [facility] ([facility]) [address] [place] [address] Hematocrit (Bld) [Volume fraction] 45.9 % Normal 41.0-52.0 [facility] Comment on above: Performed By: #### 5 7021-8 #### MIRANDA Sims ([id number]) [facility] ([facility]) [address] [place] [address]73 Hemoglobin (Bld) [Mass/Vol] 16.3 g/dL Normal 13.5-17.5 [facility] Comment on above: Performed By: #### 5 7021-8 #### MIRANDA Sims ([id number]) [facility] ([facility]) [address] [place] [address] Immature granulocytes (Bld) [#/Vol] 0.09 x10*3/uL Normal 0.00-0.70 [facility] Comment on above: Performed By: #### 5 7021-8 #### MIRANDA Sims ([id number]) [facility] ([facility]) [address] [place] [address] Immature granulocytes/100 WBC (Bld) 0.7 % Normal 0.0-0.9 [facility] Comment on above: Result Comment: Zora ture Granulocyte Count (IG) includes promyelocytes, myelocytes and metamyelocytes but does not include bands. Percent differential counts (%) should be interpreted in the context of the absolute cell counts (cells/UL). Performed By: #### 5 7021-8 #### MIRANDA Sims ([id number]) [facility] ([facility]) [address] [place] [address] Lymphocytes (Bld) [#/Vol] 2.28 x10*3/uL Normal 1.20-4.80 [facility] Comment on above: Performed By: #### 5 7021-8 #### MIRANDA Sims ([id number]) [facility] ([facility]) [address] [place] [address]07[address] Lymphocytes/100 WBC (Bld) 16.5 % Normal 13.0-44.0 [facility] Comment on above: Performed By: #### 5 7021-8 #### MIRANDA Sims ([id number]) [facility] ([facility]) [address] [place] [address] MCH (RBC) [Entitic mass] 30.2 pg Normal 26.0-34.0 [facility] Comment on above: Performed By: #### 5 7021-8 #### MIRANDA Sims ([id number]) [facility] ([facility]) [address] [place] [address] 66[address] MCHC (RBC) [Mass/Vol] 35.5 g/dL Normal 32.0-36.0 [facility] Comment on above: Performed By: #### 5 7021-8 #### MIRANDA Sims ([id number]) [facility] ([facility]) [address] [place] [address] MCV (RBC) [Entitic vol] 85 fL Normal 80-100 [facility] Comment on above: Performed By: #### 5 7021-8 #### MIRANDA Sims ([id number]) [facility] ([facility]) [address] [place] [address] Monocytes (Bld) [#/Vol] 0.96 x10*3/uL Normal 0.10-1.00 [facility] Comment on above: Performed By: #### 5 7021-8 #### MIRANDA Sims ([id number]) [facility] ([facility]) [address] [place] [address]14[address] Monocytes/100 WBC (Bld) 7.0 % Normal 2.0-10.0 [facility] Comment on above: Performed By: #### 5 7021-8 #### MIRANDA Sims ([id number]) [facility] ([facility]) [address] [place] [address] 12205 Neutrophils (Bld) [#/Vol] 10.32 x10*3/uL High 1.20-7.70 [facility] Comment on above: Result Comment: Perc ent differential counts (%) should be interpreted in the context of the absolute cell counts (cells/uL). Performed By: #### 5 7021-8 #### MIRANDA Sims ([id number]) [facility] ([facility]) [address] [place] [address] Neutrophils/100 WBC (Bld) 74.6 % Normal 40.0-80.0 [facility] Comment on above: Performed By: #### 5 7021-8 #### MIRANDA Sims ([id number]) [facility] ([facility]) [address] [place] [address] 914[address] Nucleated RBC/100 WBC (Bld) [Ratio] 0.0 /100 WBCs Normal 0.0-0.0 [facility] Comment on above: Performed By: #### 5 7021-8 #### MIRANDA Sims ([id number]) [facility] ([facility]) [address] [place] [address] Platelets (Bld) [#/Vol] 230 x10*3/uL Normal 150-450 [facility] Comment on above: Performed By: #### 5 7021-8 #### MIRANDA KYAWTZER L ([id number]) [facility] ([facility]) [address] [place] [address] RBC (Bld) [#/Vol] 5.40 x10*6/uL Normal 4.50-5.90 [facility] Comment on above: Performed By: #### 5 7021-8 #### MIRANDA SCHMOTZER L ([id number]) [facility] ([facility]) [address] [place] [address] WBC (Bld) [#/Vol] 13.8 x10*3/uL High 4.4-11.3 [facility] Comment on above: Performed By: #### 5 7021-8 #### MIRANDA EVIMOTZER L ([id number]) [facility] ([facility]) [address] [place] [address] CT ANKLE RIGHT WO IV CONTRAS Ton 10-31-2024 CT ANKLE RIGHT WO IV CONTRAST Interpreted By: Julián Mendez and Ritchie Brandon STUDY: CT of right foot without contrast. INDICATION: Signs/Symptoms:ankle fx COMPARISON: Radiographs of the ankle 10/31/2024. ACCESSION NUMBER(S): [id number] ORDERING CLINICIAN: NOAH COLVIN TECHNIQUE: Contiguous axial [...] Horacio Loera. This study was interpreted at [place], [place]. MACRO: None Signed by: Julián Mendez 10/31/2024 11:31 PM Dictation workstation: [id number] Normal [facility] CT Ankle - right WO contrast on [...] Horacio Loera. This study was interpreted at [place], [place]. MACRO: None Signed by: Julián Mendez 10/31/2024 11:31 PM Dictation workstation: [id number] Interpreted By: Julián Mendez and Ritchie Brandon STUDY: CT of right foot without contrast. INDICATION: Signs/Symptoms:ankle fx COMPARISON: Radiographs of the ankle 10/31/2024. ACCESSION NUMBER(S): [id number] ORDERING CLINICIAN: NOAH COLVIN TECHNIQUE: Contiguous axial [...] Radiographs of the ankle 10/31/2024. ACCESSION NUMBER(S): [id number] ORDERING CLINICIAN: NOAH COLVIN TECHNIQUE: Contiguous axial [...] Horacio Loera. This study was interpreted at [place], [place]. MACRO: None Signed by: Julián Mendez 10/31/2024 11:31 PM Dictation workstation: [id number] [facility] Work Phone: [facility] Work Phone: CT CERVICAL SPINE WO IV CONT [facility] 10-31-2024 CT CERVICAL SPINE WO IV CONTRAST Interpreted By: Julián Mendez and Hofer Lindsay STUDY: CT CERVICAL SPINE WO IV CONTRAST; 11/01/2024 12:31 am INDICATION: Signs/Symptoms:fall/s eizure. COMPARISON: None. ACCESSION NUMBER(S): [id number] ORDERING CLINICIAN: EDNA CHOUDHARY TECHNIQUE: Axial noncontrast [...] This study was analyzed and interpreted at [facility], [place], [place]. MACRO: None. Signed by: Julián Mendez 11/01/2024 1:04 AM Dictation workstation: [id number] Normal [facility] CT CHEST ABDOMEN PELVIS W IV CONTRASTon 10-31-2024 CT CHEST ABDOMEN PELVIS W IV CONTRAST Interpreted By: Julián Mendez, and Evaristo Leonard STUDY: CT CHEST ABDOMEN PELVIS W IV CONTRAST; CT THORACIC SPINE RETROSPECTIVE RECONSTRUCTION PROTOCOL; CT LUMBAR SPINE RETROSPECTIVE RECONSTRUCTION PROTOCOL; 11/01/2024 12:31 am INDICATION: Signs/Symptoms:fall/s eizure. COMPARISON: Radiograph of the chest 10/31/2024. ACCESSION NUMBER(S): [id number]; [id number]; [id number] ORDERING CLINICIAN: EDNA CHOUDHARY TECHNIQUE: Contiguous axial [...] Horacio Loera. This study was interpreted at [place], [place]. MACRO: None. Signed by: Julián Mendez 11/01/2024 1:14 AM Dictation workstation: [id number] Normal [facility] CT HEAD WO IV CONTRASTon CT HEAD WO IV CONTRAST Interpreted By: Julián Mendez and Ritchie Brandon STUDY: CT HEAD WO IV CONTRAST; 10/31/2024 9:49 pm INDICATION: Signs/Symptoms:mult falls, LOC vs seizure COMPARISON: None. ACCESSION NUMBER(S): [id number] ORDERING CLINICIAN: NOAH COLVIN TECHNIQUE: Axial noncontrast [...] Horacio Loera. This study was interpreted at [place], [place]. MACRO: None. Signed by: Julián Mendez 10/31/2024 10:31 PM Dictation workstation: [id number] Normal [facility] CT Head WO contraston 2024 CT HEAD: *No acute intracranial abnormality or calvarial fracture. I personally reviewed the images/study and I agree with the findings as stated by resident Horacio Loera. This study was interpreted at [place], [place]. MACRO: None. Signed by: Julián Mendez 10/31/2024 10:31 PM Dictation workstation: [id number] MMODAL Interpreted By: Julián Mendez and Ritchie Brandon STUDY: CT HEAD WO IV CONTRAST; 10/31/2024 9:49 pm INDICATION: Signs/Symptoms:mult falls, LOC vs seizure COMPARISON: None. ACCESSION NUMBER(S): [id number] ORDERING CLINICIAN: NOAH COLVIN TECHNIQUE: Axial noncontrast [...] LOC vs seizure COMPARISON: None. ACCESSION NUMBER(S): [id number] ORDERING CLINICIAN: NOAH COLVIN TECHNIQUE: Axial noncontrast [...] Horacio Loera. This study was interpreted at [place], [place]. MACRO: None. Signed by: Julián Mendez 10/31/2024 10:31 PM Dictation workstation: [id number] [facility] Work Phone: [facility] Work Phone: CT LUMBAR SPINE RETROSPECTIV E RECONSTRUCTION PROTOCOLon 10-31-2024 CT LUMBAR SPINE RETROSPECTIVE RECONSTRUCTION PROTOCOL Interpreted By: Julián Mendez and Ritchie Brandon STUDY: CT CHEST ABDOMEN PELVIS W IV CONTRAST; CT THORACIC SPINE RETROSPECTIVE RECONSTRUCTION PROTOCOL; CT LUMBAR SPINE RETROSPECTIVE RECONSTRUCTION PROTOCOL; 11/01/2024 12:31 am INDICATION: Signs/Symptoms:fall/s eizure. COMPARISON: Radiograph of the chest 10/31/2024. ACCESSION NUMBER(S): [id number]; [id number]; [id number] ORDERING CLINICIAN: EDNA CHOUDHARY TECHNIQUE: Contiguous axial [...] Horacio Loera. This study was interpreted at [facility], [place], [place]. MACRO: None. Signed by: Julián Mendez 11/01/2024 1:14 AM Dictation workstation: [id number] Normal [facility] CT THORACIC SPINE RETROSPECT IVONE RECONSTRUCTION PROTOCOLon 10-31-2024 CT THORACIC SPINE RETROSPECTIVE RECONSTRUCTION PROTOCOL Interpreted By: Julián Mendez and Evaristo Leonard STUDY: CT CHEST ABDOMEN PELVIS W IV CONTRAST; CT THORACIC SPINE RETROSPECTIVE RECONSTRUCTION PROTOCOL; CT LUMBAR SPINE RETROSPECTIVE RECONSTRUCTION PROTOCOL; 11/01/2024 12:31 am INDICATION: Signs/Symptoms:fall/s eizure. COMPARISON: Radiograph of the chest 10/31/2024. ACCESSION NUMBER(S): [id number]; [id number]; [id number] ORDERING CLINICIAN: EDNA CHOUDHARY TECHNIQUE: Contiguous axial [...] Horacio Loera. This study was interpreted at [place], [place]. MACRO: None. Signed by: Julián Mendez 11/01/2024 1:14 AM Dictation workstation: [id number] Normal [facility] Comprehensive metabolic 2000 panelon 10-31-2024 Albumin BCP dye [Mass/Vol] 4.8 g/dL 3.4 - 5.0 g/dL [facility] ALP [Catalytic activity/Vol] 89 U/L 33 - 120 U/L [facility] Company ALT With P-5'-P [Catalytic activity/Vol] 39 U/L 10 - 52 U/L [facility] Comment on above: Patients treated wit h Sulfasalazine may generate falsely decreased results for ALT. Anion gap [Moles/Vol] 12 mmol/L 10 - 20 mmol/L [facility] AST With P-5'-P [Catalytic activity/Vol] 24 U/L 9 - 39 U/L [facility] Bilirubin [Mass/Vol] 0.6 mg/dL 0.0 - 1 .2 mg/dL [facility] Calcium [Mass/Vol] 10.1 mg/dL 8.6 - 10. 6 mg/dL [facility] Chloride [Moles/Vol] 98 mmol/L 98 - 10 7 mmol/L [facility] CO2 [Moles/Vol] 29 mmol/L 21 - 32 mmol/L [facility] Creatinine [Mass/Vol] 1.14 mg/dL 0.50 - 1.30 mg/dL [facility] GFR/1.73 sq M.predicted among non-blacks MDRD (S/P/Bld) [Vol rate/Area] 88 mL/min/{1.73_m2} - PINF [facility] Comment on above: Calculations of davey mated GFR are performed using the 2020 CKD-EPI Study Refit equation without the race variable for the IDMS-Traceable creatinine methods. https://jasn.asnjournals.org/content/early/ASN.80384 52471 Glucose [Mass/Vol] 101 mg/dL High 74 - 99 mg/dL [facility] Interpretation and review of laboratory results Abnormal [facility] Potassium [Moles/Vol] 4.4 mmol/L 3.5 - 5.3 mmol/L [facility] Protein [Mass/Vol] 8.2 g/dL 6.4 - 8.2 g/dL [facility] Sodium [Moles/Vol] 135 mmol/L Low 136 - 145 mmol/L [facility] Urea nitrogen [Mass/Vol] 15 mg/dL 6 - 23 mg/dL [facility] Albumin BCP dye [Mass/Vol] 4.8 g/dL Normal 3.4-5.0 [facility] Comment on above: Performed By: #### 2 4323-8 #### MIRANDA Sims ([id number]) [facility] ([facility]) [address] [place] [address] ALP [Catalytic activity/Vol] 89 U/L Normal 33-120 [facility] Comment on above: Performed By: #### 2 4323-8 #### MIRANDA Sims ([id number]) [facility] ([facility]) [address] [place] [address] ALT With P-5'-P [Catalytic activity/Vol] 39 U/L Normal 10-52 [facility] Comment on above: Result Comment: Chloe ents treated with Sulfasalazine may generate falsely decreased results for ALT. Performed By: #### 2 4323-8 #### MIRANDA Sims ([id number]) [facility] ([facility]) [address] [place] [address] Anion gap [Moles/Vol] 12 mmol/L Normal 10-20 [facility] Comment on above: Performed By: #### 2 4323-8 #### MIRANDA Sims ([id number]) [facility] ([facility]) [address] [place] [address] AST With P-5'-P [Catalytic activity/Vol] 24 U/L Normal 9-39 [facility] Comment on above: Performed By: #### 2 4323-8 #### MIRANDA GONZALEZ L ([id number]) [facility] ([facility]) [address] [place] [address] Bilirubin [Mass/Vol] 0.6 mg/dL Normal 0.0-1.2 [facility] Comment on above: Performed By: #### 2 4323-8 #### MIRANDA Sims ([id number]) [facility] ([facility]) [address] [place] [address] Calcium [Mass/Vol] 10.1 mg/dL Normal 8.6-10.6 [facility] Comment on above: Performed By: #### 2 4323-8 #### MIRANDA GONZALEZ L ([id number]) [facility] ([facility]) [address] [place] [address] Chloride [Moles/Vol] 98 mmol/L Normal 98-107 [facility] Comment on above: Performed By: #### 2 4323-8 #### MIRANDA GONZALEZ L ([id number]) [facility] ([facility]) [address] [place] [address] CO2 [Moles/Vol] 29 mmol/L Normal 21-32 [facility] Comment on above: Performed By: #### 2 4323-8 #### MIRANDA Sims ([id number]) [facility] ([facility]) [address] [place] [address] Creatinine [Mass/Vol] 1.14 mg/dL Normal 0.50-1.30 [facility] Comment on above: Performed By: #### 2 4323-8 #### MIRANDA Sims ([id number]) [facility] ([facility]) [address] [place] [address] Glomerular filtration rate/1.73 sq M.predicted 88 mL/min/1.73m*2 Normal >60 [facility] Comment on above: Result Comment: Calc ulations of estimated GFR are performed using the 2020 CKD-EPI Study Refit equation without the race variable for the IDMS-Traceable creatinine methods. https://jasn.asnjournals.org/content/early//ASN.38170 00672 Performed By: #### 2 4323-8 #### MIRANDA Sims ([id number]) [facility] ([facility]) [address] [place] [address]994 Glucose [Mass/Vol] 101 mg/dL High 74-99 [facility] Comment on above: Performed By: #### 2 4323-8 #### MIRANDA Sims ([id number]) [facility] ([facility]) [address] [place] [address] Potassium [Moles/Vol] 4.4 mmol/L Normal 3.5-5.3 [facility] Comment on above: Performed By: #### 2 4323-8 #### MIRANDA Sims ([id number]) [facility] ([facility]) [address] [place] [address] Protein [Mass/Vol] 8.2 g/dL Normal 6.4-8.2 [facility] Comment on above: Performed By: #### 2 4323-8 #### MIRANDA Sims ([id number]) [facility] ([facility]) [address] [place] [address] Sodium [Moles/Vol] 135 mmol/L Low 136-145 [facility] Comment on above: Performed By: #### 2 4323-8 #### MIRANDA Sims ([id number]) [facility] ([facility]) [address] [place] [address] 52163 Urea nitrogen [Mass/Vol] 15 mg/dL Normal 6- [facility] Comment on above: Performed By: #### 2 4323-8 #### MIRANDA Sims ([id number]) [facility] ([facility]) [address] [place] [address] 16443 ECG 12 leadOrdered By: Linda Rich on 10-31-2024 Atrial Rate 99 BPM [facility] Work Phone: [phone] P Buxton 58 degrees [facility] Work Phone: [phone] P Offset 200 [facility] Work Phone: [phone] P Onset 148 [facility] Work Phone: [phone] SC Interval 156 ms [facility] Work Phone: [phone] Q Onset 226 ms [facility] Work Phone: [phone] QRS Count 16 beats [facility] Work Phone: [phone] QRS Duration 92 ms [facility] Work Phone: [phone] QT Interval 340 ms [facility] Work Phone: [phone] QTC Calculation(Bazett) 436 [facility] Work Phone: [phone] QTC Fredericia 401 [facility] Work Phone: [phone] R Buxton 55 degrees [facility] Work Phone: [phone] T Buxton 56 degrees [facility] Work Phone: [phone] T Offset 396 ms [facility] Work Phone: [phone] Ventricular Rate 99 BPM [facility] Work Phone: [facility] Work Phone: ECG 12 leadon 10-31-2024 Normal sinus rhythm Nonspecific ST abnormality Abnormal ECG No previous ECGs available See ED provider note for full interpretation and clinical correlation Confirmed by Linda Rich ([id number]) on 10/31/2024 7:19:36 PM Linda Madsen, TRAFFIC INCIDENT MANAGEMENT MANAGER-[facility] - 10/31/2024 Normal sinus rhythm Nonspecific ST abnormality Abnormal ECG No previous ECGs available See ED provider note for full interpretation and clinical correlation Confirmed by Linda Rich ([id number]) on 10/31/2024 7:19:36 PM [facility] Work Phone: Ethanolon 10-31-2024 Ethanol [Mass/Vol] mg/dL NINF - 10 mg/dL [facility] Comment on above: For medical use only . Ethanol [Mass/Vol] mg/dL Normal <=10 [facility] Comment on above: Result Comment: For medical use only. Performed By: #### 5 643-2 ####MIRANDA Sims ([id number])[facility] ([facility])[address] [place] [address] Ethanol [Mass/Vol]on 025 Interpretation and review of laboratory results Normal [facility] Gas panel (BldV)on 5 Anion gap 4 (BldV) [Moles/Vol] 9 mmol/L Low 10.0 - 25.0 mmol/L [facility] Base excess Calc (BldV) [Moles/Vol] 2.7 mmol/L -2.0 - 3.0 mmol/L [facility] Calcium.ionized (BldV) [Moles/Vol] 1.23 mmol/L 1.10 - 1.33 mmol/L [facility] Chloride (BldV) [Moles/Vol] 99 mmol/L 98 - 107 mmol/L [facility] CO2 (BldV) [Partial pressure] 54 mm[Hg] High [facility] Glucose [Mass/Vol] 110 mg/dL High 74 - 99 mg/dL [facility] HCO3 (Bld) [Moles/Vol] 29.8 mmol/L High 22.0 - 26.0 mmol/L [facility] Hematocrit Est (Bld) [Volume fraction] 48 % 41.0 - 52.0 % [facility] Hemoglobin (Bld) [Mass/Vol] 16.1 g/dL 13.5 - 17.5 g/dL [facility] Inhaled oxygen concentration 21 % [facility] Interpretation and review of laboratory results Abnormal [facility] Lactate (BldV) [Moles/Vol] 1.3 mmol/L 0.4 - 2.0 mmol/L [facility] Oxygen (BldV) [Partial pressure] 24 mm[Hg] Low [facility] Oxygen saturation in Venous blood 37 % Low 45 - 75 % [facility] Oxyhemoglobin (BldV) [Mass fraction] 36.4 % Low 45.0 - 75.0 % [facility] pH (BldV) 7.35 [pH] 7.33 - 7.43 pH [facility] Potassium (BldV) [Moles/Vol] 4.6 mmol/L 3.5 - 5.3 mmol/L [facility] Sodium (BldV) [Moles/Vol] 133 mmol/L Low 136 - 145 mmol/L [facility] Anion gap 4 (BldV) [Moles/Vol] 9.0 mmol/L Low 10.0-25.0 [facility] Comment on above: Performed By: #### 2 4339-4 #### MIRANDA Sims ([id number]) [facility] ([facility]) [address] [place] [address] 22647 Base excess Calc (BldV) [Moles/Vol] 2.7 mmol/L Normal -2.0-3.0 [facility] Comment on above: Performed By: #### 2 4339-4 #### MIRANDA Sims ([id number]) [facility] ([facility]) [address] [place] [address] 96912 Calcium.ionized (BldV) [Moles/Vol] 1.23 mmol/L Normal 1.10-1.33 [facility] Comment on above: Performed By: #### 2 4339-4 #### MIRANDA Sims ([id number]) [facility] ([facility]) [address] [place] [address] Chloride (BldV) [Moles/Vol] 99 mmol/L Normal 98-107 [facility] Comment on above: Performed By: #### 2 4339-4 #### MIRANDA Sims ([id number]) [facility] ([facility]) [address] [place] [address] 09713 CO2 (BldV) [Partial pressure] 54 mm Hg High 41-51 [facility] Comment on above: Performed By: #### 2 4339-4 #### MIRANDA Sims ([id number]) [facility] ([facility]) [address] [place] [address] 82393 Glucose [Mass/Vol] 110 mg/dL High 74-99 [facility] Comment on above: Performed By: #### 2 4339-4 #### MIRANDA Sims ([id number]) [facility] ([facility]) [address] [place] [address] 71304 HCO3 (Bld) [Moles/Vol] 29.8 mmol/L High 22.0-26.0 [facility] Comment on above: Performed By: #### 2 4339-4 #### MIRANDA Sims ([id number]) [facility] ([facility]) [address] [place] [address] 75947 Hematocrit Est (Bld) [Volume fraction] 48.0 % Normal 41.0-52.0 [facility] Comment on above: Performed By: #### 2 4339-4 #### MIRANDA Sims ([id number]) [facility] ([facility]) [address] [place] [address] 20075 Hemoglobin (Bld) [Mass/Vol] 16.1 g/dL Normal 13.5-17.5 [facility] Comment on above: Performed By: #### 2 4339-4 #### MIRANDA Sims ([id number]) [facility] ([facility]) [address] [place] [address] 36475 Inhaled oxygen concentration 21 % Normal [facility] Comment on above: Performed By: #### 2 4339-4 #### MIRANDA Sims ([id number]) [facility] ([facility]) [address] [place] [address] 85416 Lactate (BldV) [Moles/Vol] 1.3 mmol/L Normal 0.4-2.0 [facility] Comment on above: Performed By: #### 2 4339-4 #### MIRANAD iSms ([id number]) [facility] ([facility]) [address] [place] [address] 76141 Oxygen (BldV) [Partial pressure] 24 mm Hg Low 35-45 [facility] Comment on above: Performed By: #### 2 4339-4 #### MIRANDA Sims ([id number]) [facility] ([facility]) [address] [place] [address] 00522 Oxygen saturation in Venous blood 37 % Low 45-75 [facility] Comment on above: Performed By: #### 2 4339-4 #### MIRANDA Sims ([id number]) [facility] ([facility]) [address] [place] [address] 44413 Oxyhemoglobin (BldV) [Mass fraction] 36.4 % Low 45.0-75.0 [facility] Comment on above: Performed By: #### 2 4339-4 #### MIRANDA Sims ([id number]) [facility] ([facility]) [address] [place] [address] 62492 pH (BldV) 7.35 [pH] Normal 7.33-7.43 [facility] Comment on above: Performed By: #### 2 4339-4 #### MIRANDA Sims ([id number]) [facility] ([facility]) [address] [place] [address] 83403 Potassium (BldV) [Moles/Vol] 4.6 mmol/L Normal 3.5-5.3 [facility] Comment on above: Performed By: #### 2 4339-4 #### MIRANDA Sims ([id number]) [facility] ([facility]) [address] [place] [address] 18314 Sodium (BldV) [Moles/Vol] 133 mmol/L Low 136-145 [facility] Comment on above: Performed By: #### 2 4339-4 #### MIRANDA Sims ([id number]) [facility] ([facility]) [address] [place] [address] 11318 Glucose Test strip manual (B ld) [Mass/Vol]on 10-31-2024 Glucose [Mass/Vol] 108 mg/dL High 74 - 99 mg/dL [facility] Interpretation and review of laboratory results Abnormal [facility] Glucose [Mass/Vol] 108 mg/dL High 74-99 [facility] Comment on above: Performed By: #### 2 341-6 #### MIRANDA Sims ([id number]) [facility] ([facility]) [address] [place] [address] 04410 Magnesiumon 10-31-2024 Magnesium [Mass/Vol] 2.37 mg/dL 1.60 - 2.40 mg/dL [facility] Magnesium [Mass/Vol] 2.37 mg/dL Normal 1.60-2.40 [facility] Comment on above: Performed By: #### 1 9123-9 #### MIRANDA Sims ([id number]) [facility] ([facility]) [address] [place] [address] 28713 Magnesium [Mass/Vol]on 10-31 Interpretation and review of laboratory results Normal [facility] No Panel Informationon 10-31 Radiology Study observation (narrative) [facility] Work Phone: [facility] Comminuted distal fibular fracture with additional medial malleolar avulsion injury. Suspected medial clear space widening. No evidence of syndesmotic widening. MACRO: None Signed by: Bryson Fam 10/31/2024 6:41 PM Dictation workstation: [id number] MMODAL Interpreted By: Bryson Fam, STUDY: XR TIBIA FIBULA RIGHT 2 VIEWS; XR ANKLE RIGHT 3+ VIEWS; XR KNEE RIGHT 4+ VIEWS; ; 10/31/2024 6:31 pm; 10/31/2024 6:32 pm INDICATION: Signs/Symptoms:pain after injury; Signs/Symptoms:r/o fx. COMPARISON: None. ACCESSION NUMBER(S): [id number]; [id number]; [id number] ORDERING CLINICIAN: NOAH STUART FINDINGS: Four views [...] injury; Signs/Symptoms:r/o fx. COMPARISON: None. ACCESSION NUMBER(S): [id number]; [id number]; [id number] ORDERING CLINICIAN: NOAH STUART FINDINGS: Four views [...] Bryson Fam 10/31/2024 6:41 PM Dictation workstation: [id number] [facility] Work Phone: Radiology Study observation (narrative) [facility] Work Phone: No Panel InformationOrdered By: Bryson Fam on 10-31-2024 [facility] Work Phone: PT and aPTT panel Coag (PPP) on 10-31-2024 aPTT Coag (PPP) [Time] 26 s [facility] INR Coag (PPP) [Relative time] 1 {INR} 0.9 - 1.1 [facility] Interpretation and review of laboratory results Normal [facility] PT Coag (PPP) [Time] 11 s [facility] The APTT is no longe r used for monitoring Unfractionated Heparin Therapy. For monitoring Heparin Therapy, use the Heparin Assay. [facility] aPTT Coag (PPP) [Time] 26 s Normal 26-36 [facility] Comment on above: Order Comment: The A PTT is no longer used for monitoring Unfractionated Heparin Therapy. For monitoring Heparin Therapy, use the Heparin Assay. Performed By: #### 3 4529-8 ####MIRANDA Sims ([id number])[facility] ([facility])[address] [place] [address] 84384 INR Coag (PPP) [Relative time] 1.0 Normal 0.9-1.1 [facility] Comment on above: Order Comment: The A PTT is no longer used for monitoring Unfractionated Heparin Therapy. For monitoring Heparin Therapy, use the Heparin Assay. Performed By: #### 3 4529-8 ####MIRANDA Sims ([id number])[facility] ([facility])[address] [place] [address] 73791 PT Coag (PPP) [Time] 11.0 s Normal 9.8-12.4 [facility] Comment on above: Order Comment: The A PTT is no longer used for monitoring Unfractionated Heparin Therapy. For monitoring Heparin Therapy, use the Heparin Assay. Performed By: #### 3 4529-8 ####MIRANDA Sims ([id number])[facility] ([facility])[address] [place] [address] Tropinin I.cardiac panel Hig h sensitivity methodon 10-31-2024 Interpretation and review of laboratory results Normal [facility] Less than 99th percentile of normal range [...] performed using a different testing methodology at [facility] than [facility]. Direct result comparisons should only be made within the same method. [facility] Interpretation and review of laboratory results Normal [facility] Less than 99th percentile of normal range [...] performed using a different testing methodology at [facility] than at other [facility]. Direct result comparisons should only be made within the same method. [facility] Troponin I, High Sensitivity , Initialon 10-31-2024 Tropinin I.cardiac panel High sensitivity method ng/L 0 - 53 ng/L [facility] Troponin I.cardiac panelon 0 10-31-2024 Tropinin I.cardiac panel High sensitivity method <3 Normal 0-53 [facility] Comment on above: Order Comment: Less than [...] is performed using a differenttesting methodology at [facility] than at [facility]. Direct result comparisons should onlybe made within the same method. Performed By: #### 8 9577-1 ####MIRANDA Sims ([id number])[facility] ([facility])[address] [place] [address] Tropinin I.cardiac panel High sensitivity method <3 Normal 0-53 [facility] Comment on above: Order Comment: Less than [...] performed using a different testing methodology at [facility] than at other [facility]. Direct result comparisons should only be made within the same method. Performed By: #### 8 9577-1 #### MIRANDA Sims ([id number]) [facility] ([facility]) [address] [place] [address] Troponin, High Sensitivity, 1 Houron 10-31-2024 Tropinin I.cardiac panel High sensitivity method ng/L 0 - 53 ng/L [facility] XR ANKLE RIGHT 3+ VIEWSon XR ANKLE RIGHT 3+ VIEWS Interpreted By: Julián Mendez and Ritchie Brandon STUDY: XR ANKLE RIGHT 3+ VIEWS; ; 10/31/2024 9:38 pm INDICATION: Signs/Symptoms:post reduction. COMPARISON: Radiograph of the right ankle 10/31/2024, 6:32 p.m.. ACCESSION NUMBER(S): [id number] ORDERING CLINICIAN: NOAH COLVIN TECHNIQUE: Three views [...] Horacio Loera. This study was interpreted at [place], [place]. MACRO: None Signed by: Julián Mendez 10/31/2024 10:25 PM Dictation workstation: [id number] Normal [facility] XR ANKLE RIGHT 3+ VIEWS Interpreted By: Bryson Fam, STUDY: XR TIBIA FIBULA RIGHT 2 VIEWS; XR ANKLE RIGHT 3+ VIEWS; XR KNEE RIGHT 4+ VIEWS; ; 10/31/2024 6:31 pm; 10/31/2024 6:32 pm INDICATION: Signs/Symptoms:pain after injury; Signs/Symptoms:r/o fx. COMPARISON: None. ACCESSION NUMBER(S): [id number]; [id number]; [id number] ORDERING CLINICIAN: NOAH COLVIN; IKE STUART FINDINGS: [...] Bryson Fam 10/31/2024 6:41 PM Dictation workstation: [id number] Normal [facility] XR Ankle - right 3 Viewson 0 10-31-2024 *Comminuted fibula fracture with similar alignment compared to prior imaging. Previously described medial malleolus avulsion fracture is not well visualized, likely obscured by overlying cast material. I personally reviewed the images/study and I agree with the findings as stated by resident Horacio Loera. This study was interpreted at [place], [place]. MACRO: None Signed by: Julián Mendez 10/31/2024 10:25 PM Dictation workstation: [id number] MMODAL Interpreted By: Julián Mendez and Ritchie Brandon STUDY: XR ANKLE RIGHT 3+ VIEWS; ; 10/31/2024 9:38 pm INDICATION: Signs/Symptoms:post reduction. COMPARISON: Radiograph of the right ankle 10/31/2024, 6:32 p.m.. ACCESSION NUMBER(S): [id number] ORDERING CLINICIAN: NOAH COLVIN TECHNIQUE: Three views [...] Mendez MD - 10/31/2024 Interpreted By: VanessaJulián minaya and Ritchie Brandon STUDY: XR ANKLE RIGHT 3+ VIEWS; ; 10/31/2024 9:38 pm INDICATION: Signs/Symptoms:post reduction. COMPARISON: Radiograph of the right ankle 10/31/2024, 6:32 p.m.. ACCESSION NUMBER(S): [id number] ORDERING CLINICIAN: NOAH COLVIN TECHNIQUE: Three views [...] Horacio Loera. This study was interpreted at [place], [place]. MACRO: None Signed by: Julián Mendez 10/31/2024 10:25 PM Dictation workstation: [id number] [facility] Work Phone: Radiology Study observation (narrative) [facility] Work Phone: XR Ankle - right 3 ViewsOrde red By: Julián Mendez on 10-31-2024 [facility] Work Phone: XR CHEST 1 VIEWon 10-31-2024 XR CHEST 1 VIEW Interpreted By: Bryson Fam, STUDY: XR CHEST 1 VIEW; 10/31/2024 6:32 pm INDICATION: Signs/Symptoms:preop. COMPARISON: None. ACCESSION NUMBER(S): [id number] ORDERING CLINICIAN: IKE STUART FINDINGS: AP radiograph of the chest was provided. CARDIOMEDIASTINAL SILHOUETTE: Cardiomediastinal silhouette is normal in size and configuration. LUNGS: No focal consolidation, pleural effusion, or pneumothorax. ABDOMEN: No remarkable upper abdominal findings. BONES: No acute osseous changes. IMPRESSION: 1. No evidence of acute cardiopulmonary process. MACRO: None Signed by: Bryson Fam 10/31/2024 6:41 PM Dictation workstation: [id number] [facility] XR Chest Single viewon 10-31 1. No evidence of acute cardiopulmonary process. MACRO: None Signed by: Bryson Fam 10/31/2024 6:41 PM Dictation workstation: [id number] MMODAL Interpreted By: Bryson Fam, STUDY: XR CHEST 1 VIEW; 10/31/2024 6:32 pm INDICATION: Signs/Symptoms:preop. COMPARISON: None. ACCESSION NUMBER(S): [id number] ORDERING CLINICIAN: IKE STUART FINDINGS: AP radiograph [...] pm INDICATION: Signs/Symptoms:preop. COMPARISON: None. ACCESSION NUMBER(S): [id number] ORDERING CLINICIAN: IKE STUART FINDINGS: AP radiograph of the chest was provided. CARDIOMEDIASTINAL SILHOUETTE: Cardiomediastinal silhouette is normal in size and configuration. LUNGS: No focal consolidation, pleural effusion, or pneumothorax. ABDOMEN: No remarkable upper abdominal findings. BONES: No acute osseous changes. IMPRESSION: 1. No evidence of acute cardiopulmonary process. MACRO: None Signed by: Bryson Fam 10/31/2024 6:41 PM Dictation workstation: [id number] [facility] [facility] Work Phone[facility] Work Phone: XR KNEE RIGHT 4+ VIEWSon XR KNEE RIGHT 4+ VIEWS Interpreted By: Bryson Fam, STUDY: XR TIBIA FIBULA RIGHT 2 VIEWS; XR ANKLE RIGHT 3+ VIEWS; XR KNEE RIGHT 4+ VIEWS; ; 10/31/2024 6:31 pm; 10/31/2024 6:32 pm INDICATION: Signs/Symptoms:pain after injury; Signs/Symptoms:r/o fx. COMPARISON: None. ACCESSION NUMBER(S): [id number]; [id number]; [id number] ORDERING CLINICIAN: NOAH STUART FINDINGS: Four views [...] Bryson Fam 10/31/2024 6:41 PM Dictation workstation: [id number] [facility] XR TIBIA FIBULA RIGHT 2 VIEW Son 10-31-2024 XR TIBIA FIBULA RIGHT 2 VIEWS Interpreted By: Bryson Fam, STUDY: XR TIBIA FIBULA RIGHT 2 VIEWS; XR ANKLE RIGHT 3+ VIEWS; XR KNEE RIGHT 4+ VIEWS; ; 10/31/2024 6:31 pm; 10/31/2024 6:32 pm INDICATION: Signs/Symptoms:pain after injury; Signs/Symptoms:r/o fx. COMPARISON: None. ACCESSION NUMBER(S): [id number]; [id number]; [id number] ORDERING CLINICIAN: NOAH STUART FINDINGS: Four views [...] Bryson Fam 10/31/2024 6:41 PM Dictation workstation: [id number] [facility] XR Tibia and Fibula - right 2 Viewson 10-31-2024 Radiology Study observation (narrative) [facility] Work Phone: Chest PA and Lateralon 03-27 Chest PA and Lateral [facility] Imaging Services [address] [place] [address] Chest PA and Lateral MR#: [id number] Acct: [id number] Name: AVTARJAVED Rep #: [id number] : 1995 M 28 From: Naomi dillon MD PCP: Care Physician,No Primary Status: REG ER Study: Chest PA and Lateral Date of Exam: 03/27/24 Exam# [id number] Ordering Dr: German Zhang DO [id number] HISTORY: Cough. TECHNIQUE: XR Chest 2 Views. [...] German Zhang DO; No Primary Care Physician Mercerizing Range Controller: Signed Normal [facility] Emergency Department Summary on 03-27-2024 Emergency Department Summary [facility] Medical Records Department [address] [place] [address] Emergency Department Summary 03/27/24 MR#: [id number] Acct: [id number] Name: JAVED REYES Rep #: [id number] : 1995 28 From: German Zhang DO [...] Zithromax. Pa (more content not included)... Normal [facility] M100.677on 03-27-2024 M100.677 Negative Normal [facility] Comment on above: Performed By: #### M 100.677, M100.678 #### [facility] [address] [place], [place], [address] M100.678on 03-27-2024 M100.678 Pending SARS-CoV-2 (COVID 19) Negative INFLUENZA A Negative INFLUENZA B Negative RSV PCR Negative Normal [facility] Comment on above: Performed By: #### M 100.677, M100.678 #### [facility] [address] [place], [place], [address] ED NOTEon 09-02-2023 ED NOTE HNO ID: [id number] Author: FLAQUITO CHOI RN Service: Emergency Medicine [...] September 03, 2023 TIME: 8:32 PM Normal [facility] ED PROV NOTEon 09-02-2023 ED PROV NOTE HNO ID: [id number] Author: LIBERTAD SALES MD Service: Emergency Medicine [...] sinusitis, unspecified location COVID-19 test performed per [facility] [place] policy for suspected COVID community exposure. MDM [...] last few days. 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 Normal [facility] FLUABV+SARS-CoV-2+RSV Pnl Re sp TOMAS+probeon 09-02-2023 FLUABV+SARS-CoV-2+RSV Pnl Resp TOMAS+probe COVID 19 RESULT: Not detected The method used is RT-PCR or an equivalent NAAT method. Reference Range(the expected result in uninfected individuals): Not detected INFLUENZA A PCR: Not detected INFLUENZA B PCR: Not detected RSV PCR: Not detected Normal [facility] Comment on above: Performed By: #### 9 [id number] #### [facility] CLIA [id number] [address] [place] [id number] [place] Vital Signs Date Time Vital Sign Value Performing Clinician Facility 11-06-2024 15:30-0400 Body temperature 97.3 [degF] Noah Colvin MD Work Phone: [facility] 11-06-2024 15:30-0400 Diastolic blood pressure 75 mm[Hg] Noah Colvin MD Work Phone: [facility] 11-06-2024 15:30-0400 Heart rate 70 /min Noah Colvin MD Work Phone: [facility] 11-06-2024 15:30-0400 Respiratory rate 15 /min Noah Colvin MD Work Phone: [facility] 11-06-2024 15:30-0400 SaO2% (BldA) [Mass fraction] 99 % Noah Colvin MD Work Phone: [facility] 11-06-2024 15:30-0400 Systolic blood pressure 109 mm[Hg] Noah Colvin MD Work Phone: [facility] 10-31-2024 19:12-0400 Body temperature 37 Noah Colvin MD Work Phone: [facility] 10-31-2024 19:05-0400 Body temperature 37.0 degrees Celsius [facility] Comment on above: Performed By: #### [id number] #### MIRANDA Sims ([id number]) [facility] ([facility]) [address] [place] [address] 10-31-2024 16:43-0400 Body height 172.7 cm Noah Colvin MD Work Phone: [facility] 10-31-2024 16:43-0400 Body mass index (BMI) [Ratio] 39.53 kg/m2 Noah Colvin MD Work Phone: [facility] 10-31-2024 16:43-0400 Body weight 117.94 kg Noah Colvin MD Work Phone: [facility] 02-23-2024 21:49-0400 Blood Pressure Location RAQUEL LOAIZA MD [facility] 02-23-2024 21:49-0400 Blood Pressure Method RAQUEL LOAIZA MD [facility] 02-23-2024 21:49-0400 Body height 172.7 cm ARQUEL LOAIZA MD [facility] 02-23-2024 21:49-0400 Body temperature 96.98 [degF] RAQUEL LOAIZA MD [facility] 02-23-2024 21:49-0400 Body weight 104.5 kg RAQUEL LOAIZA MD [facility] 02-23-2024 21:49-0400 Diastolic Blood Pressure Non-Invasive 78 mm[Hg] RAQUEL LOAIZA MD [facility] 02-23-2024 21:49-0400 Heart rate 98 /min RAQUEL LOAIZA MD [facility] 02-23-2024 21:49-0400 Respiratory rate 16 /min RAQUEL LOAIZA MD [facility] 02-23-2024 21:49-0400 Systolic Blood Pressure Non-Invasive 130 mm[Hg] RAQUEL LOAIZA MD [facility] Encounters Encounter Date Encounter Type Care Provider Facility Start: 10-31-2024 End: 11-06-2024 [facility] on above: Displaced comminuted fracture of shaft of right fibula, initial encounter for closed fracture (Primary Dx); Alcohol use; Insomnia, unspecified type; Cigarette smoker; Drug-induced constipation Start: 10-31-2024 End: 10-31-2024 Emergency department patient visit [facility] Start: 03-27-2024 End: 03-27-2024 Emergency department patient visit German Zhang Facility:[facility] Start: 02-23-2024 End: 02-23-2024 Emergency department patient visit RAQUEL LOAIZA MD [facility] Start: 09-02-2023 Emergency department patient visit Facility:[facility] Procedures Date Procedure Procedure Detail Performing Clinician [...] f 2) Zoster Vaccines (1 of 2) [facility] Start: 01-28-2025 Influenza vaccination Influenz a Vaccine (Season Ended) [facility] Start: 11-20-2024 End: 11-20-2024 Patient encounter procedure 11/20/2024 1:00 PM EDT Office Visit [facility] [address] [facility] [address] [place] [id number] Toña Castillo PA-C [address] [place] [address] [facility] Start: 01-29-2024 COVID-19 Vaccine ( season) COVID-19 Vaccine ( season) [facility] Start: 07-13-2020 Pneumococcal Vaccine : Pediatrics and At-Risk Adult Patients (2 of 2 - PCV) Pneumococcal Vaccine: Pediatrics and At-Risk Adult Patients (2 of 2 - PCV) [facility] Start: 2015 DTaP/Tdap/Td Vaccine s (1 - Tdap) DTaP/Tdap/Td Vaccines (1 - Tdap) [facility] Start: 2012 Hepatitis B Vaccines (1 of 3 - 19+ 3-dose series) Hepatitis B Vaccines (1 of 3 - 19+ 3-dose series) [facility] Start: 2011 Hepatitis C screening Hepatitis C Sc reening [facility] Start: 2006 Varicella vaccination Varicell a Vaccines (1 of 2 - 13+ 2-dose series) [facility] Start: 1994 MMR Vaccines (1 of 1 - Standard series) MMR Vaccines (1 of 1 - Standard series) [facility] Start: 1993 HIV screening HIV Screening [facility] Start: 1993 Lipid panel Lipid Panel [facility] Start: 1993 Yearly Adult Physical Yearly Adult P hysical [facility] Electrocardiogram, 12-lead PRN ACS symptoms Electrocardiogram, 12-lead PRN ACS symptoms ECG Routine As needed until discontinued starting 11/01/2024 [facility] Work Phone: Comment on above: As needed until disc ontinued starting 11/01/2024 End: 11-01-2024 Incentive spirometry Instruct Incentive spirometry Instruct Respiratory Care Routine Once for 1 Occurrences starting 11/01/2024 until 11/01/2024 [facility] Service Area Work Phone: Comment on above: Once for 1 Occurrenc es starting 11/01/2024 until 11/01/2024 Payers Date Payer Category Payer Medicaid MEDICAID [id number] 2024 Medicaid [id number] 2024 Self-pay 1997 Unknown [id number] 1995 Unknown [id number] 1995 Unknown [id number] 1995 Unknown [id number] Unknown [id number] Social History Date Type Detail Facility Start: 02-23-2024 Tobacco smoking status Light tobacco smoker (finding) [facility] Start: 1995 Sex Assigned At Male [facility] Start: 11-01-2024 Tobacco smoking status NHIS Smokes tobacco daily [facility] History of tobacco use Cigarette Smoker [facility] Work Phone: Start: 11-01-2024 Tobacco use and exposure Smokeless tobacco non-user [facility] Work Phone: Start: 11-01-2024 Alcoholic beverage intake Current drinker of alcohol (finding) [facility] Work Phone: Start: 11-01-2024 End: 11-02-2024 History of Social function [facility] Start: 11-01-2024 End: 11-02-2024 [facility] Utilities [facility] Has the electric, [email or web address], oil, or water company threatened to shut off services in your home in past 12Mo Yes [facility] Within the last year , have you been afraid of your partner or ex-partner? No [facility] Work Phone: How often to you hav e a drink containing alcohol? 4 or more times a week [facility] Work Phone: How many standard dr inks containing alcohol do you have on a typical day? 7 to 9 [facility] Work Phone: How often do you hav e 6 or more drinks on 1 occasion? Weekly [facility] Work Phone: How hard is it for y ou to pay for the very basics like food, housing, medical care, and heating Not very hard [facility] (I/We) worried pablo er (my/our) food would run out before (I/we) got money to buy more. Often true [facility] Work Phone: In the past 12 month s, has lack of transportation kept you from medical appointments or from getting medications? No [facility] Work Phone: Start: 10-31-2024 Gender identity Identifies as male gender (finding) [facility] Work Phone: Start: 10-22-2024 End: 11-01-2024 Exposure to SARS-CoV-2 (event) Not sure [facility] Work Phone: Medical Equipment Procedure Code Equipment Code Equipment Origin al Text Equipment Identifier Dates Device, Syndemos is Fixation, Gunlock Synchfix P5 - [id number] Start: 11-01-2024 Device, Syndemos is Fixation, Gunlock Synchfix P5 - [id number] Start: 11-01-2024 Plate, Fibula, Distal Lateral, 2.7/3.5mm 137mm 8h, Right - [id number] Start: 11-01-2024 Screw, Cortex 2. 7mm, T8, 20mm - [id number] Start: 11-01-2024 Screw, Cortex 2. 7mm, T8, 16mm - [id number] Start: 11-01-2024 Screw, Cortex 2. 7mm, T8, 22mm - [id number] Start: 11-01-2024 Screw, Cory 3.5 X 14 Ti - [id number] Start: 11-01-2024 Screw, Cory 3.5 X 16 Ti - [id number] Start: 11-01-2024 Screw, Cory 3.5 X 18 Ti - [id number] Start: 11-01-2024 Screw, Locking, 2.7mm, T8, 8mm - [id number] Start: 11-01-2024 Screw, Locking, 2.7mm, T8, 12mm - [id number] Start: 11-01-2024 Screw, Locking, 2.7mm, T8, 16mm - [id number] Start: 11-01-2024 Functional Status Date Assessment Result Facility 11-01-2024 Total score [AUDIT-C] 10 025 6:42 PM JANINET Emily Fernandez RN [facility] Work Phone: 11-01-2024 Patient Health Questionnaire 2 item (PHQ-2) [Reported] [facility] Work Phone: 10-31-2024 [place] - suicide s everity rating scale screener - recent [C-SSRS] [facility] Work Phone: 02-23-2024 Functional Status Assistive Device None [facility] 02-23-2024 Functional Status Standard Safet y ID band on, Allergy Band on, Call device within reach, Bed in low position, Wheels locked, personal items within reach, Bedside Cart Locked, Visitor at bedside [facility] Work Phone: Mental Status Date Assessment Result Facility 02-23-2024 Mental Status Orientation Oriented x 4 [facility] [place] 02-23-2024 Mental Status [facility] Clinical Notes 02-23-2024 to 11-06-2024 Enoch Jean-Baptiste RN - 11/06/2024 4:19 PM EDSharon Jean-Baptiste RN - 11/06/2024 4:19 PM EDTRagarry Fitzgerald PA-C - 11/06/2024 1:48 PM EDTCare Plan - Enoch Jean-Baptiste RN - 11/06/2024 11:26 AM EDT Note Date & Type Note Facility 11-06-2024 Nurse Note Patient has been discharged to [facility] via community care ambulance. Vitals stable, all IV's removed and after visit summary reviewed with patient. [facility] 11-06-2024 Nurse Note Patient has been discharged to [facility] via community care ambulance. Vitals stable, all IV's removed and after visit summary reviewed with patient. documented in this encounter [facility] Work Phone: 11-06-2024 Hospital course Narrative Discharge [...] cleared for OR by trauma. Admitted to [facility]. Taken to OR on 11/01 for R [...] Center 11/20/2024 1:00 PM Toña Castillo PA-C [id number] Academic Anna Fitzgerald PA-C documented in this encounter [facility] Work Phone: 11-06-2024 Plan of care note The patient's goals for the shift include The clinical goals for the shift include remain free from falls [facility] Work Phone: 11-06-2024 Miscellaneous Notes The patient's goals for the shift include The clinical goals for the shift include remain free from falls The patient's goals for the shift include The clinical goals for the shift include pain control CHW met with patient at bedside, Patient stated that he is interested in community resources in [facility], Patient stated he received out to a facility for rehab [place] near his area after discharge. CHW provided a [facility] resources to assist with food housing financial assistance etc, [employer] for guidances and support, Patient mentioned applying for disability. CHW provided disability resources information, including steps on how to apply online. CHW also provided the rehab center patient is interested contact information. Community Resource Name: Phone Number: Staff Member: Discussed the following topics on behalf of the patient: [] Behavioral Health Assistance [] Case Management [] Application Support Administrator Assistance [] Digital Equity Assistance [] Dental [...] cleared for OR by trauma. Admitted to [facility]. Taken to OR on 11/01 for R [...] will sign off. documented in this encounter [facility] Work Phone: 11-06-2024 History of Presen t illness Narrative Transitional Dough Raiser Note: Patient discussed with medical team (trauma PA), per trauma team patient is medically ready. Discharge dispo: Plan for patient to discharge to [facility]. TCC met with patient introduced self and role to discuss discharge plan. TCC informed patient that he was accepted by [facility] and able to discharge to facility. Patient expressed wanting to discharge [facility] stating he wants to be in [facility] near his friends. TCC informed patient there has not been an official acceptance from [facility]. Patient requested for TCC to follow up with facility stating he spoke with facilities admit team who stated facility is able to accept patient. TCC sent updated clinicals to patient's FOC and requested update on acceptance. Yeny Tomas RN BSN Transitional Dough Raiser [facility] TRAUMA SERVICE - PROGRESS NOTE Patient Name: [...] Trauma, Critical Care, Acute Care Surgery Floor: 39791 TSICU: 78554 CHIEF COMPLAINT / OVERNIGHT EVENTS: No acute [...] results, and imaging pertinent for today's encounter. [facility] TRAUMA SERVICE - PROGRESS NOTE Patient Name: [...] syndesmotic fixation 11/01 - NWB RLE in [facility] - follow up 2 weeks with [...] Trauma, Critical Care, Acute Care Surgery Floor: 56950 TSICU: 77899 CHIEF COMPLAINT / OVERNIGHT EVENTS: No acute [...] wiggle toes. Dorsi/plantarflexion 5/5 left lower extremity. Soybean Grower strength 5/5 bilaterally. sensation intact throughout all [...] PT/OT. No return call or note in [facility] regarding referral to [facility]. Pt was updated regarding this agency for those who need medical care and in a housing crisis. Objective Physical Exam Assessment & Plan SW will continue to follow pt for a safe discharge. SW will update Trauma Team regarding pt's pain and feelings about needing PT. CHRISTINE VARGAS [facility] TRAUMA SERVICE - PROGRESS NOTE Patient Name: [...] syndesmotic fixation 11/01 - NWB RLE in [facility] - follow up 2 weeks with [...] Trauma, Critical Care, Acute Care Surgery Floor: 80044 TSICU: 17931 CHIEF COMPLAINT / OVERNIGHT EVENTS: No acute [...] lower extremity. Dorsi/plantarflexion 5/5 left lower extremity. Soybean Grower strength 5/5 bilaterally. sensation intact throughout all [...] were you homeless or living in a fci (including now)? Y Transportation Needs In the past 12 months, has lack of transportation kept you from medical appointments or from getting medications? no In the past 12 months, has lack of transportation kept you from meetings, work, or from getting things needed for daily living? No Patient Choice Provider Choice list and [facility] website (https://medicare.gov/care-comp are#search) for post-acute Quality and Resource Measure Data were provided and reviewed with: Patient PCP: NONE DME: none previously Pharmacy: none [employer] PR[employer] FEEDER spoke with the patient on this date. Patient is homeless and hopping from couch to couch. Patient came in due to a displaced right fibula fracture. PT saw and recommended no needs. PT explained that patient is nonweight bearing to the right leg but is doing well on the walker. [employer] PR[employer]EDER explained that this [employer] PRESS FEEDER can order a walker for the patient. Patient explained that hed be interested in going to a physical rehab at discharge. PLAT[employer] PRESS FEEDER explained that she could send out some referrals but that she cannot guarantee he will be accepted due to his age and the fact he doesn't have PT or OT needs. [employer] PR[employer] FEEDER texted patient an [place] and SNF list. Patient also agreed to blanket referral. Patient confirmed he would find a place to say if he cannot go to SNF or [place]. Patient tested positive for cocaine and cannibis. PLAT[employer] PRESS FEEDER spoke with him about it. 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 PLAT[employer] PR[employer] FEEDER offered substance abuse resources or a referral to [facility], Patient explained that he doesn't not think he needs any resources and that he will just stop cold turkey. PLATEN PRESS FEEDER will continue to follow ADD 11/02/24 2:59PM PLAT[employer] PRESS FEEDER attempted to call patient again to discuss alternate discharge plans besides SNF/[place] since patient doesn't have therapy needs. [employer]ATEN PR[employer] FEEDER was unable to reach patient via phone. [employer] PR[employer] FE[employer]ER spoke with patient's PA about making a [facility]' referral for the patient. [employer]AT[employer] PR[employer] FEEDER will continue to follow LISA Mims, LAUREN-S Occupational Therapy Evaluation Patient Name: Javed Reyes Today's Date: 11/02/2024 Room: [facility] Time Calculation Start Time: 930 Stop [...] Adaptive Equipment: None Prior Function: Level of Dixie: Independent with ADLs and functional transfers, Independent [...] Within Functional Limits, , and Outcome Measures: [facility] Daily Activity Putting on and taking off [...] 10:35 AM Moshe Mclain OT Rehab Office: [phone] Physical Therapy Physical Therapy Evaluation Patient Name: Javed Reyes Department: [place] [address] Room: 8058/8058-A Today's Date: 11/02/2024 Time Calculation [...] Prior Function Per Pt/Caregiver Report Level of Dixie: Independent with ADLs and functional transfers ADL [...] compensate.) Comments/Distance (ft) 1: 20ft Outcome Measures: [facility] Basic Mobility Turning from your back to [...] for closed fracture. Pharmacy reviewed the patient's iwybi-zk-bjuvqdfxy medications and allergies for accuracy. Medications ADDED: None Medications CHANGED: None Medications REMOVED: None The list below reflects the updated ART FRAMING MANAGER list. None The list below reflects the [...] any prescription medications, vitamins, supplements or OTCs ART FRAMING MANAGER Anupam Ellis PharmD Transitions of Care Pharmacist 11/02/24 Secure Chat preferred If no response call [phone] or [employer] Rec [facility] TRAUMA SERVICE - PROGRESS NOTE Patient Name: [...] syndesmotic fixation 11/01 - NWB RLE in [facility] - follow up 2 weeks with [...] Trauma, Critical Care, Acute Care Surgery Floor: 02179 TSICU: 16045 CHIEF COMPLAINT / OVERNIGHT EVENTS: No acute [...] 2/5 strength. Dorsi/plantarflexion 5/5 left lower extremity. Soybean Grower strength 5/5 bilaterally. sensation intact throughout all [...] results, and imaging pertinent for today's encounter. [facility] TRAUMA SERVICE - PROGRESS NOTE Patient Name: [...] during my rounds. documented in this encounter [facility] Work Phone: 11-05-2024 Plan of care note The patient's goals for the shift include The clinical goals for the shift include pain control [facility] 11-05-2024 Plan of care note CHW met with patient at bedside, Patient stated that he is interested in community resources in [facility], Patient stated he received out to a facility for rehab [place] near his area after discharge. CHW provided a [facility] resources to assist with food housing financial assistance etc, [employer] for guidances and support, Patient mentioned applying for disability. CHW provided disability resources information, including steps on how to apply online. CHW also provided the rehab center patient is interested contact information. Community Resource Name: Phone Number: Staff Member: Discussed the following topics on behalf of the patient: [] Behavioral Health Assistance [] Case Management [] Application Support Administrator Assistance [] Digital Equity Assistance [] Dental [...] here] Next Steps: MARIA DE JESUS [facility] 11-05-2024 Plan of care note The [...] appropriate for maintaining nutritional needs Outcome: Progressing [facility] 11-02-2024 Plan of care note The patient's goals for the shift include The clinical goals for the shift include Pt pain will be contolled [facility] 11-02-2024 Hospital Discharg e instructions Ivelisse Lorenzo [...] orthopaedic clinic appointment line phone number is [phone]. Please do not delay in calling to [...] become infected. Alternatively, you may blow a religion department chair, on the cool air setting, in order [...] an emergent evaluation. documented in this encounter [facility] Work Phone: 11-02-2024 Plan of care note [...] line(s)/device(s) Turn/reposition every 2 hours/use positioning/transfer devices [facility] 11-01-2024 Hospital Note Formatting of t his [...] cleared for OR by trauma. Admitted to [facility]. Taken to OR on 11/01 for R ankle ORIF. Patient to follow up outpatient in [address] Stuart. PT/OT worked with patient while admitted, pt discharged to SNF at time of discharge. Pt sent with scripts and meds continued, follow up appointments placed. Pain well controlled, eating and drinking well. Pt verbalized understanding of discharge instructions. [facility] Work Phone: 11-01-2024 coding manager Note Neurology Final Assessment and Plan: [...] provided per primary. Neurology will sign off. [facility] Work Phone: 11-01-2024 Consult note Formatting of [...] friend was having surgery at a hospital [facility] and he went to visit afterwards he [...] a few seconds to minutes the director of employer services was present and at his side with [...] given rapid COORDINATION: In both upper extremities, wukkbh-nbdo-hfkidh was intact without dysmetria or overshoot. GAIT: [...] Horacio Loera. This study was interpreted at [place], [place]. MACRO: None. Signed by: Julián Mendez 11/01/2024 1:14 AM Dictation workstation: [id number] CT lumbar spine retrospective reconstruction protocol Result Date: 11/01/2024 CT CHEST/ABDOMEN/PELVIS: *No acute traumatic injury. CT THORACIC AND LUMBAR SPINE: *No acute fracture or traumatic malalignment. I personally reviewed the images/study and I agree with the findings as stated by resident Horacio Loera. This study was interpreted at [place], [place]. MACRO: None. Signed by: Julián Mendez 11/01/2024 1:14 AM Dictation workstation: [id number] CT thoracic spine retrospective reconstruction protocol Result Date: 11/01/2024 CT CHEST/ABDOMEN/PELVIS: *No acute traumatic injury. CT THORACIC AND LUMBAR SPINE: *No acute fracture or traumatic malalignment. I personally reviewed the images/study and I agree with the findings as stated by resident Horacio Loera. This study was interpreted at [place], [place]. MACRO: None. Signed by: Julián Mendez 11/01/2024 1:14 AM Dictation workstation: [id number] CT cervical spine wo IV contrast Result Date: 11/01/2024 1. No acute fracture or traumatic malalignment of the cervical spine. I personally reviewed the images/study and resident's interpretation and I agree with the findings as stated by Anisa Mena MD (resident radiologist). This study was analyzed and interpreted at [place], [place]. MACRO: None. Signed by: Julián Mendez 11/01/2024 1:04 AM Dictation workstation: [id number] CT ankle right wo IV contrast Result [...] Horacio Loera. This study was interpreted at [place], [place]. MACRO: None Signed by: Julián Mendez 10/31/2024 11:31 PM Dictation workstation: [id number] CT head wo IV contrast Result Date: 10/31/2024 CT HEAD: *No acute intracranial abnormality or calvarial fracture. I personally reviewed the images/study and I agree with the findings as stated by resident Horacio Loera. This study was interpreted at [place], [place]. MACRO: None. Signed by: Julián Mendez 10/31/2024 10:31 PM Dictation workstation: [id number] XR ankle right 3+ views Result Date: 10/31/2024 *Comminuted fibula fracture with similar alignment compared to prior imaging. Previously described medial malleolus avulsion fracture is not well visualized, likely obscured by overlying cast material. I personally reviewed the images/study and I agree with the findings as stated by resident Horacio Loera. This study was interpreted at [place], [place]. MACRO: None Signed by: Julián Mendze 10/31/2024 10:25 PM Dictation workstation: [id number] XR chest 1 view Result Date: 10/31/2024 1. No evidence of acute cardiopulmonary process. MACRO: None Signed by: Bryson Fam 10/31/2024 6:41 PM Dictation workstation: [id number] XR ankle right 3+ views Result Date: 10/31/2024 Comminuted distal fibular fracture with additional medial malleolar avulsion injury. Suspected medial clear space widening. No evidence of syndesmotic widening. MACRO: None Signed by: Bryson Alvinovince 10/31/2024 6:41 PM Dictation workstation: [id number] XR tibia fibula right 2 views Result Date: 10/31/2024 Comminuted distal fibular fracture with additional medial malleolar avulsion injury. Suspected medial clear space widening. No evidence of syndesmotic widening. MACRO: None Signed by: Bryson Alvinovince 10/31/2024 6:41 PM Dictation workstation: [id number] XR knee right 4+ views Result Date: 10/31/2024 Comminuted distal fibular fracture with additional medial malleolar avulsion injury. Suspected medial clear space widening. No evidence of syndesmotic widening. MACRO: None Signed by: Bryson Alvinovince 10/31/2024 6:41 PM Dictation workstation: [id number] Cardiology, Vascular, and Other Imaging ECG 12 [...] note dated 11/01 for our detailed recommendations. [facility] Work Phone: 11-01-2024 Consult note Formatting of [...] [facility] and he went to visit afterwards he [...] a few seconds to minutes the director of employer services was present and at his side with [...] given rapid COORDINATION: In both upper extremities, mxracz-izhd-juswdl was intact without dysmetria or overshoot. GAIT: [...] Horacio Loera. This study was interpreted at [place], [place]. MACRO: None. Signed by: Julián Mendez 11/01/2024 1:14 AM Dictation workstation: [id number] CT lumbar spine retrospective reconstruction protocol Result Date: 11/01/2024 CT CHEST/ABDOMEN/PELVIS: *No acute traumatic injury. CT THORACIC AND LUMBAR SPINE: *No acute fracture or traumatic malalignment. I personally reviewed the images/study and I agree with the findings as stated by resident Horacio Loera. This study was interpreted at [place], [place]. MACRO: None. Signed by: Julián Mendez 11/01/2024 1:14 AM Dictation workstation: [id number] CT thoracic spine retrospective reconstruction protocol Result Date: 11/01/2024 CT CHEST/ABDOMEN/PELVIS: *No acute traumatic injury. CT THORACIC AND LUMBAR SPINE: *No acute fracture or traumatic malalignment. I personally reviewed the images/study and I agree with the findings as stated by resident Horacio Loera. This study was interpreted at [place], [place]. MACRO: None. Signed by: Julián Mendez 11/01/2024 1:14 AM Dictation workstation: [id number] CT cervical spine wo IV contrast Result Date: 11/01/2024 1. No acute fracture or traumatic malalignment of the cervical spine. I personally reviewed the images/study and resident's interpretation and I agree with the findings as stated by Anisa Mena MD (resident radiologist). This study was analyzed and interpreted at [place], [place]. MACRO: None. Signed by: Julián Mendez 11/01/2024 1:04 AM Dictation workstation: [id number] CT ankle right wo IV contrast Result [...] Horacio Loera. This study was interpreted at [place], [place]. MACRO: None Signed by: Julián Mendez 10/31/2024 11:31 PM Dictation workstation: [id number] CT head wo IV contrast Result Date: 10/31/2024 CT HEAD: *No acute intracranial abnormality or calvarial fracture. I personally reviewed the images/study and I agree with the findings as stated by resident Horacio Loera. This study was interpreted at [place], [place]. MACRO: None. Signed by: Julián Mendez 10/31/2024 10:31 PM Dictation workstation: [id number] XR ankle right 3+ views Result Date: 10/31/2024 *Comminuted fibula fracture with similar alignment compared to prior imaging. Previously described medial malleolus avulsion fracture is not well visualized, likely obscured by overlying cast material. I personally reviewed the images/study and I agree with the findings as stated by resident Horacio Loera. This study was interpreted at [place], [place]. MACRO: None Signed by: Julián Mendez 10/31/2024 10:25 PM Dictation workstation: [id number] XR chest 1 view Result Date: 10/31/2024 1. No evidence of acute cardiopulmonary process. MACRO: None Signed by: Bryson Fam 10/31/2024 6:41 PM Dictation workstation: [id number] XR ankle right 3+ views Result Date: 10/31/2024 Comminuted distal fibular fracture with additional medial malleolar avulsion injury. Suspected medial clear space widening. No evidence of syndesmotic widening. MACRO: None Signed by: Bryson Fam 10/31/2024 6:41 PM Dictation workstation: [id number] XR tibia fibula right 2 views Result Date: 10/31/2024 Comminuted distal fibular fracture with additional medial malleolar avulsion injury. Suspected medial clear space widening. No evidence of syndesmotic widening. MACRO: None Signed by: Bryson Fam 10/31/2024 6:41 PM Dictation workstation: [id number] XR knee right 4+ views Result Date: 10/31/2024 Comminuted distal fibular fracture with additional medial malleolar avulsion injury. Suspected medial clear space widening. No evidence of syndesmotic widening. MACRO: None Signed by: Bryson Fam 10/31/2024 6:41 PM Dictation workstation: [id number] Cardiology, Vascular, and Other Imaging ECG 12 [...] our detailed recommendations. documented in this encounter [facility] Work Phone: 10-31-2024 History and physical note [facility] TRAUMA SERVICE - HISTORY AND PHYSICAL / [...] provider name, time): ortho Dispo: Admit to [facility] for PT/OT Pt seen and discussed with attending Dr. Castellano Total face to face time spent with patient/family of 30 minutes, with >50% of the time spent discussing plan of care/management, counseling/educating on disease processes, explaining results of diagnostic testing. I have reviewed all medications, laboratory results, and imaging pertinent for today's encounter. Edna Choudhary PA-C Trauma, Critical Care, Acute Care Surgery [facility]: [address] [facility] [id number] [facility] PAST MEDICAL HISTORY: PMH: denies, one prior event 1.5 weeks ago where he had convulsions after smoking marijuana SOCIAL HISTORY: Smoking: cigarettes Alcohol: works in [employer], often has a few drinks after [...] Left Pupil: round and reactive Motor Strength Soybean Grower strength: 5/5 on the right 5/5 on [...] surgery. Appreciate neurology consult. Ganga Castellano DO [facility] Work Phone: 10-31-2024 History and physical note [facility] TRAUMA SERVICE - HISTORY AND PHYSICAL / [...] provider name, time): ortho Dispo: Admit to [facility] for PT/OT Pt seen and discussed with attending Dr. Castellano Total face to face time spent with patient/family of 30 minutes, with >50% of the time spent discussing plan of care/management, counseling/educating on disease processes, explaining results of diagnostic testing. I have reviewed all medications, laboratory results, and imaging pertinent for today's encounter. Edna Choudhary PA-C Trauma, Critical Care, Acute Care Surgery [facility]: [address] [facility] [id number] ======== PAST MEDICAL HISTORY: PMH: denies, one [...] Left Pupil: round and reactive Motor Strength Soybean Grower strength: 5/5 on the right 5/5 on [...] Ganga Castellano DO documented in this encounter [facility] Work Phone: 10-31-2024 Emergency department Note History [...] None Care Considerations: As documented above in [facility] ED Course: ED Course as of 11/06/24442 [...] right ankle pain documented in this encounter [facility] Work Phone: 10-31-2024 Physician Emergency department Note [...] the patient's care: As documented above in [facility] The patient was discussed with the following consultants/services: None Care Considerations: As documented above in [facility] ED Course: ED Course as of 11/06/24 [...] the documented findings. Noah Colvin MD 11/06/24442 [facility] Work Phone: 10-31-2024 Emergency department Triage note [...] pt is also c/o right ankle pain [facility] Work Phone: 02-24-2024 Hospital Discharg e instructions [...] until the rash is all gone. Use fowl-hek-nglndbl antifungal powders or sprays on your feet [...] Pus draining from cracks in the skin 1395-6972 [employer]. [address] [place] [address]. All rights reserved. This information is not [...] Boil returns when you are at home 3839-6840 [employer]. [address] [place] [address]. All rights reserved. This information is not intended as a substitute for professional medical care. Always follow your healthcare professional's instructions. Follow Up Care 02/23/2024 21:43:59 With:[facility] [phone] Address:Unknown When:2-4 days [facility] Note Discharge Instructions Thank you for allowing [facility] to assist you with your healthcare needs. The following is important discharge information regarding your hospital visit. What to Do Next Instructions from Your Care Team No qualifying data available. Post Acute Orders No qualifying data available. You Need to Schedule the Following Appointments Follow Up with Call [phone] When:Within 2-4 days Allergies Cats Dust Medications [...] may report side effects to FDA at 2-123-OHX-0805. What other drugs will affect butenafine topical? Medicine used on the skin is not likely to be affected by other drugs you use, but many drugs can interact. Tell your doctor about all your current medicines, including prescription and mbjk-lrt-gdkvkbg medicines, vitamins, and herbal products. Where can I get more information? Your doctor or pharmacist can provide more information about butenafine topical. Remember, keep this and all other medicines out of the reach of children, never share your medicines with others, and use this medication only for the indication prescribed. Every effort has been made to ensure that the information provided by [employer]. ('[employer]') is accurate, up-to-date, and complete, but no guarantee is made to that effect. Drug information contained herein may be time sensitive. [employer] information has been compiled for use by healthcare practitioners and consumers in the [place] and therefore [employer] does not warrant that uses outside of the [place] are appropriate, unless specifically indicated otherwise. [employer]umbis drug information does not endorse drugs, diagnose patients or recommend therapy. [employer]is drug information is an informational resource designed [...] effective or appropriate for any given patient. [facility] does not assume any responsibility for any aspect of healthcare administered with the aid of information [facility] provides. The information contained herein is not intended to cover all possible uses, directions, precautions, warnings, drug interactions, allergic reactions, or adverse effects. If you have questions about the drugs you are taking, check with your doctor, nurse or pharmacist. Copyright 1035-7602 [facility] [place] [facility]. Version: 5.01. Revision Date: 08/04/2023. cephalexin (sef [...] may report side effects to FDA at 0-211-IYP-1916. What other drugs will affect cephalexin? Tell your doctor about all your other medicines, especially: metformin; or probenecid. This list is not complete. Other drugs may affect cephalexin, including prescription and sugx-uey-hxxnhwq medicines, vitamins, and herbal products. Not all [...] to ensure that the information provided by [employer]. ('[employer]) is accurate, up-to-date, and complete, but no guarantee is made to that effect. Drug information contained herein may be time sensitive. [employer] information has been compiled for use by healthcare practitioners and consumers in the [place] and therefore [employer] does not warrant that uses outside of the [place] are appropriate, unless specifically indicated otherwise. [employer] drug information does not endorse drugs, diagnose patients or recommend therapy. [employer]is drug information is an informational resource designed [...] effective or appropriate for any given patient. [employer] does not assume any responsibility for any aspect of healthcare administered with the aid of information [employer] provides. The information contained herein is not intended to cover all possible uses, directions, precautions, warnings, drug interactions, allergic reactions, or adverse effects. If you have questions about the drugs you are taking, check with your doctor, nurse or pharmacist. Copyright 9773-5714 [employer]. Version: .. Revision Date: 12/29/2022. doxycycline (oral/injection) (DOX mauricio romo) Acticlate, Adoxa, Alodox, Avidoxy, Doryx, Doryx MPC, Lymepak, Mondoxyne NL, Monodox, Morgidox, Morgidox 2x890pj, Morgidox 7r411ki, Okebo, Oracea, Targadox, Vibramycin, Vibramycin Monohydrate What [...] or life-threatening conditions such as anthrax or Ottertail spotted fever. The benefit of treating a [...] may report side effects to FDA at 0-305-QUN-4777. What other drugs will affect doxycycline? Sometimes it is not safe to use certain medications at the same time. Some drugs can affect your blood levels of other drugs you take, which may increase side effects or make the medications less effective. Other drugs may affect doxycycline, including prescription and wvgx-qbv-jlsxgnj medicines, vitamins, and herbal products. Tell your [...] to ensure that the information provided by [employer] ('[employer]') is accurate, up-to-date, and complete, but no guarantee is made to that effect. Drug information contained herein may be time sensitive. [employer] information has been compiled for use by healthcare practitioners and consumers in the [place] and therefore [employer] does not warrant that uses outside of the [place] are appropriate, unless specifically indicated otherwise. drumbis drug information does not endorse drugs, diagnose patients or recommend therapy. [employer]umbis drug information is an informational resource designed [...] effective or appropriate for any given patient. [employer] does not assume any responsibility for any aspect of healthcare administered with the aid of information [employer] provides. The information contained herein is not intended to cover all possible uses, directions, precautions, warnings, drug interactions, allergic reactions, or adverse effects. If you have questions about the drugs you are taking, check with your doctor, nurse or pharmacist. Copyright 7312-8793 [employer]. Version: 25.. Revision Date: 02/02/2023. Education Materials [...] until the rash is all gone. Use zroe-ubn-fwjarsw antifungal powders or sprays on your feet [...] Pus draining from cracks in the skin 5978-8759 [employer]. [address] [place] [address]. All rights reserved. This information is not [...] Boil returns when you are at home 1150-9280 [employer]. [address] [place] [address], [place] [address]. All rights reserved. This information is not intended as a substitute for professional medical care. Always follow your healthcare professional's instructions. Additional Information VACCINATE! IT SAVES LIVES! Members of the community who have not yet received the COVID-19 vaccine and would like to receive it can visit one of [facility] vaccine clinics. There are many vaccine clinic locations within the [facility]. For locations and available times, please visit www.gettheot.coronavirus.[place] .gov/. It is important to note that some COVID mobile vaccine clinics are held outdoors and may be canceled in rainy or stormy conditions. To learn more about pediatric vaccinations (ages 5-11), we invite you to visit the [facility] webpage. https://[email or web address].org/ pages/1831-Vfixr-Qofjqzoeezy-Fr wlawvfzo-Cclip-Fglsbwscp.html To learn more about the COVID-19 vaccine, we invite you to visit the CDC website for a list of frequently asked questions. https://www.cdc.gov/coronavirus /2019-ncov/vaccines/faq.html [facility] Patient Portal Access Instructions: Stay connected with your healthcare team and access your personal medical information anytime with the [facility] Patient Portal. If you would like a full copy of your medical records please contact the [facility] Medical Records Department Tuesday through Tuesday between 8a.m. and 4:30p.m. Please follow the directions below to access the portal: 1.Access the email account you provided upon registration to the hospital.2.Look for an invitation email from [facility].3.Open the email and access the invitation link: Accept Invitation to [facility]4.Fill in the required collier to create your account. Sign into [email or web address] with your username and password that you [...] you will allow to register on the [employer] [facility] Patient Portal for access to your information. You can also access the [facility] Patient Portal on the [employer] paz. Simply click on Health Records under [...] Call your local pharmacy or go to [email or web address] to find one close to you.3.Make use of household items: Use cat litter or old coffee grounds to dispose medications if other options are not available. Mix your drugs with these household products, seal them in an airtight container and throw it into the garbage. Call [facility]: [phone] to be sure your drugs can be [...] aware that I should contact my doctor. 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: Date/Time: Relationship to Patient: Witness Name/Signature: Date/Time: [facility] Evaluation + Plan note No data available for this section [facility] Evaluation note Diagnosis Displaced comminuted fracture of [...] Obesity Obesity, unspecified documented in this encounter [facility] Work Phone: Summary Purpose Family History No [...] section and content) DATE CREATED AUTHOR 09/03/2023 [facility] DATE CREATED AUTHOR AUTHOR'S ORGANIZ ATION 02/29/2024 [facility] DATE CREATED AUTHOR AUTHOR'S ORGANIZ ATION 04/17/2024 [facility] DATE CREATED AUTHOR AUTHOR'S ORGANIZ ATION 11/06/2024 [facility] Reason for Visit (unrecogniz ed section and content) Reason Comments Syncope Ankle Pain Specialty Diagnoses / Procedures Referred By Toby t Referred To Contact Diagnoses Displaced comminuted fracture of shaft of right fibula, initial [place] [address] [place] [address] Phone: tel: fax: [facility] [address] [place] [address] Phone: tel: fax: Referral ID Status Reason Start Date Expiration Date Visits Re quested Visits Authorized [id number] 1 Scheduled Active and Recently Administ ered [...] Care Teams (unrecognized sec tion and content) Proof Plate Maker Relationship Specialty Start Date End Date Generic Provider, No Assigned Pcp, [place] [id number] PCP - General Labor Representative 10/31/24 Sara Garcia, [facility] Line Repairer TowerBand Edger 11/06/24 FOR RECORDS PERTAINING TO PATIENTS WHO [...] BE BASED ON THE PRIMARY CLINICAL RECORDS. [facility] [employer] [facility]. provides no warranty or guarantee of the accuracy or completeness of information in this document.
[2024-11-07 07:40] LABS: Hematocrit 43.5 % (40-54); Hemoglobin 14.6 g/dL (13.0-16.5); Mean Corp Hgb Conc 33.6 g/dL (32-36); Mean Corpuscular Volume 89.3 fL (80-94); Mean Platelet Vol. 10.8 fl (6.2-12.0); Platelet Count 227 K/mm3 (150-450); RBC Distribution Width CV 12.3 % (11.6-14.6); Red Blood Count 4.87 M/mm3 (4.6-6.2); White Blood Count 8.1 K/mm3 (4.4-11.0)
[2024-11-07 08:01] LABS: ALB/GLOB Ratio 1.3 RATIO (0.9-2.4); AST(SGOT) 61 U/L (<=37); Alanine Aminotransfer ALT/SGPT 86 U/L (<=46); Albumin, Serum 4.1 g/dL (3.5-5.0); Alkaline Phosphatase 80 U/L (40-129); Anion Gap 11 (5-15); BUN 18 mg/dL (4-19); BUN/Creat Ratio 21.5 RATIO (10-20); Calcium,Total 9.7 mg/dL (7.6-11.0); Carbon Dioxide 25.1 mmol/L (21.0-32.0); Chloride 100 mmol/L (98-108); Creatinine, Serum 0.84 mg/dL (0.70-1.20); EST Glomerular Filtration Rate 120 (>60); Globulin 3.3 g/dL (2.2-4.2); Glucose 117 mg/dL (70-99); Potassium 4.2 mmol/L (3.3-5.1); Protein, Total 7.4 g/dL (5.9-8.4); Sodium Level 136 mmol/L (133-145); Total Bilirubin 0.27 mg/dL (0.00-1.30)
== END ==
LOC: OLS.SW 04:00
PROVIDERS: Referring Provider Internal Medicine; Visit Provider Internal Medicine
DX: Z02.2 Encounter for examination for admission to residential institution (principal); S82.839A Other fracture of upper and lower end of unspecified fibula, initial encounter for closed fracture
CPT/HCPCS: 36415; 80053; 85027

== ENCOUNTER → 2024-11-12 05:00 | Outpatient (REF) | payer MEDICAID, SELFPAY ==
--- OUTSIDE RECORDS SUMMARY | 2024-11-12 04:43 | XMS RPT_ITS | CCD ---
Author Organization [facility] Inform ion Partnership [facility] Care Team Providers Care Washer Assembler Name Role Phone PHYSICIAN, NONE Primary Care Physician Unavailab le PHYSICIAN, NONE Primary Care Unavailable RAQUEL LOAIZA MD Attending Unavailable Generic Provider MD, No Assigned Pcp Primary Car e Provider Unavailable Radha PRETTY, Sara Allen Unavailable Unavailable GABRIELE COHEN Consulting Unavailable GANGA CASTELLANO Admitting Unavailable GANGA CASTELLANO Attending Unavailable NOAH COLVIN Referring Unavailable German Zhang Attending Unavailable Care Physician, No Primary Primary Care Unava ilable Shabnam Bhatia Attending Unavailable Care Physician, No Primary Primary Care Unava ilable Allergies Allergy Classification Reported Allergen(s) Allergy Type Date of Onset Reaction(s) Facility (2 sources) Cat; Translations: [CATS] Propensity to adverse reactions (disorder) 9 Dust [facility] Repository (1 source) Dust; Translations: [DUST] Propensity to adverse reactions (disorder) 9 [facility] Repository Medications Current Medications Medication Drug [...] 16 mg = 2.4 mg/kg 68.4 kg Barnum weight), intramuscular, Once, On Zuly 11/01/24 at 0415, For 1 dose polyethylene glycol 3350 97806 mg powder for oral solution (2 sources) Osmotic Laxative Start: 11-07-2024 polyethylene glycol (Glycolax, Miralax) 17 gram packet Indications: Drug-induced constipation Take 17 g by mouth once daily. 11/07/2024 Active Start: 11-01-2024 17 g, oral, Da alexandrea, First dose on [facility] 11/01/24 at 1900, Bowel Regimen - for prevention of constipation. thiamine 100 mg oral tablet (3 sources) Start: 11-07-2024 take 1 tablet by mouth once daily thiamine (Vitamin B-1) 100 mg tablet Indications: Alcohol use Take 1 tablet (100 mg) by mouth once daily. 11/07/2024 Active Start: 11-04-2024 100 mg, oral, Daily, First dose on Tue11/04/24 at 0900, To start after three days of IV Start: 11-01-2024 End: 11-04-2024 100 mg, intravenous, Daily, First dose on [facility] 11/01/24 at 0900, For 3 doses, For IV push use, administer over 1-2 minutes. Completed/Discontinued Medications Medication Drug Class(es) Dates Sig (Normalized) Sig (Original) calcium chloride 0.0014 meq/ml / potassium chloride 0.004 meq/ml / sodium chloride 0.103 meq/ml / sodium lactate 0.028 meq/ml injectable solution (2 sources) Start: 11-01-2024 End: 11-01-2024 take 100 mL intravenously every hour 100 mL/hr, intravenous, Continuous, Starting on [facility] 11/01/24 at 1430, For 1 day, Recovery (only) Start: 11-01-2024 End: 11-01-2024 1,000 mL, intravenous, at 99 9 mL/hr, Administer over 1 Hours, Once, On [facility] 11/01/24 at 1055, For 1 dose ceFAZolin 2000 mg injection (1 source) Cephalosporin Antibacterial Start: 11-01-2024 End: 11-02-2024 take 2 g intravenously every eight hours 2 g, intravenous, Administer over 30 Minutes, Every 8 hours, First dose on [facility] 11/01/24 at 2100, For 2 doses, premix [...] Tue10/31/24 at 1945, For 1 dose Problems Active Problems Problem Classification Problem Date Documented Da te Episodic/Chronic Alcohol-related disorders (1 source) Current drinker; Translations: [Alcohol use] 11-06-2024 Chronic Fracture of lower limb (8 sources) Closed fracture of shaft of fibula; Translations: [Displaced comminuted fracture of shaft of right fibula, initial encounter for closed fracture] Onset: 10-31-2024 11-06-2024 Episodic Other gastrointestinal disorders (1 source) Drug-induced constipation; Translations: [Drug induced constipation] 11-06-2024 Episodic Other gastrointestinal disorders (2 sources) Drug induced constipation; Translations: [Drug induced constipation] Onset: 10-31-2024 Episodic Other nutritional; endocrine; and metabolic disorders (2 sources) Obesity; Translations: [Obesity, unspecified] Onset: 11-01-2024 11-01-2024 Chronic Residual codes; unclassified (1 source) Insomnia; Translations: [Insomnia, unspecified] 11-06-2024 Episodic Residual codes; unclassified (2 sources) Insomnia, unspecified; Translations: [Insomnia, unspecified] Onset: 10-31-2024 Episodic Substance-related disorders (3 sources) Cigarette smoker ; Translations: [Nicotine dependence, cigarettes, uncomplicated] Onset: 10-31-2024 11-06-2024 Chronic Unclassified (1 source) Alcohol use, unspecified, uncomplicated; Translations: [Alcohol use, unspecified, uncomplicated] Onset: 10-31-2024 Unclassified (1 source) Cough, unspecified; Translations: [Cough, unspecified] Onset: 04-16-2024 Past or Other Problems Problem Classification Problem Date Documented Da te Episodic/Chronic Unclassified (1 source) Alcohol use, unspecified, uncomplicated; Translations: [Alcohol use, unspecified, uncomplicated] Onset: 10-31-2024 Results Test Name Value Interpretation Reference Range Facility CBC-Complete Blood Cnt No Di ffon 11-07-2024 Erythrocyte distribution width (RBC) [Ratio] 12.3 % Normal 11.6-14.6 [facility] Comment on above: Order Comment: 106 Performed By: #### L 100.0500, L500.4050 #### [facility] [address] [place], [address] Hematocrit (Bld) [Volume fraction] 43.5 % Normal 40-54 [facility] Comment on above: Order Comment: 106 Performed By: #### L 100.0500, L500.4050 #### [facility] [address] [place], [address] Hemoglobin (Bld) [Mass/Vol] 14.6 g/dL Normal 13.0-16.5 [facility] Comment on above: Order Comment: 106 Performed By: #### L 100.0500, L500.4050 #### [facility] [address] [place], [address] MCH (RBC) [Entitic mass] 30.0 pg Normal 27.0-32.0 [facility] Comment on above: Order Comment: 106 Performed By: #### L 100.0500, L500.4050 #### [facility] [address] [place], [address] MCHC (RBC) [Mass/Vol] 33.6 g/dL Normal 32-36 [facility] Comment on above: Order Comment: 106 Performed By: #### L 100.0500, L500.4050 #### [facility] [address] [place], [address] MCV (RBC) [Entitic vol] 89.3 fL Normal 80-94 [facility] Comment on above: Order Comment: 106 Performed By: #### L 100.0500, L500.4050 #### [facility] [address] [place], [address] Platelet mean volume (Bld) [Entitic vol] 10.8 fL Normal 6.2-12.0 [facility] Comment on above: Order Comment: 106 Performed By: #### L 100.0500, L500.4050 #### [facility] [address] [place], [address] Platelets (Bld) [#/Vol] 227 10*3/uL Normal 150-450 [facility] Comment on above: Order Comment: 106 Performed By: #### L 100.0500, L500.4050 #### [facility] [address] [place], [address] RBC (Bld) [#/Vol] 4.87 10*6/uL Normal 4.6-6.2 [facility] Comment on above: Order Comment: 106 Performed By: #### L 100.0500, L500.4050 #### [facility] [address] [place], [address] RDW SD 40.0 fl Normal 35.1-43.9 [facility] Comment on above: Order Comment: 106 Performed By: #### L 100.0500, L500.4050 #### [facility] [address] [place], [address] WBC (Bld) [#/Vol] 8.1 10*3/uL Normal 4.4-11.0 [facility] Comment on above: Order Comment: 106 Performed By: #### L 100.0500, L500.4050 #### [facility] [address] [place], [address] Comprehensive Metabolic Prof ilon 11-07-2024 Albumin [Mass/Vol] 4.1 g/dL Normal 3.5-5.0 [facility] Comment on above: Order Comment: 106 Performed By: #### L 100.0500, L500.4050 #### [facility] [address] [place], [address] Albumin/Globulin [Mass ratio] 1.3 {ratio} Normal 0.9-2.4 [facility] Comment on above: Order Comment: 106 Performed By: #### L 100.0500, L500.4050 #### [facility] [address] [place], [address] ALK PHOS 80 U/L Normal 40-129 [facility] Comment on above: Order Comment: 106 Performed By: #### L 100.0500, L500.4050 #### [facility] [address] [place], [address] ALT [Catalytic activity/Vol] 86 U/L High <=46 [facility] Comment on above: Order Comment: 106 Performed By: #### L 100.0500, L500.4050 #### [facility] [address] [place], [address] AST [Catalytic activity/Vol] 61 U/L High <=37 [facility] Comment on above: Order Comment: 106 Performed By: #### L 100.0500, L500.4050 #### [facility] [address] [place], [address] Bilirubin [Mass/Vol] 0.27 mg/dL Normal 0.00-1.30 [facility] Comment on above: Order Comment: 106 Performed By: #### L 100.0500, L500.4050 #### [facility] [address] [place], [address] BUN/CRE 21.5 RATIO High 10-20 [facility] Comment on above: Order Comment: 106 Performed By: #### L 100.0500, L500.4050 #### [facility] [address] [place], [address] Calcium [Mass/Vol] 9.7 mg/dL Normal 7.6-11.0 [facility] Comment on above: Order Comment: 106 Performed By: #### L 100.0500, L500.4050 #### [facility] [address] [place], [address] Chloride [Moles/Vol] 100 mmol/L Normal 98-108 [facility] Comment on above: Order Comment: 106 Performed By: #### L 100.0500, L500.4050 #### [facility] [address] [place], [address] CO2 [Moles/Vol] 25.1 mmol/L Normal 21.0-32.0 [facility] Comment on above: Order Comment: 106 Performed By: #### L 100.0500, L500.4050 #### [facility] [address] [place], [address] Creatinine [Mass/Vol] 0.84 mg/dL Normal 0.70-1.20 [facility] Comment on above: Order Comment: 106 Performed By: #### L 100.0500, L500.4050 #### [facility] [address] [place], [address] GAP 11 Normal 5-15 [facility] Comment on above: Order Comment: 106 Performed By: #### L 100.0500, L500.4050 #### [facility] [address] [place], [address] GFR/1.73 sq M.predicted among non-blacks MDRD (S/P/Bld) [Vol rate/Area] 120 mL/min/{1.73_m2} Normal >60 [facility] Comment on above: Order Comment: 106 Result Comment: mL/m in/1.73m2 CKD-EPI Creatinine Equation (2020) Performed By: #### L 100.0500, L500.4050 #### [facility] [address] [place], [address] Globulin (S) [Mass/Vol] 3.3 g/dL Normal 2.2-4.2 [facility] Comment on above: Order Comment: 106 Performed By: #### L 100.0500, L500.4050 #### [facility] [address] [place], [address] Glucose [Mass/Vol] 117 mg/dL High 70-99 [facility] Comment on above: Order Comment: 106 Performed By: #### L 100.0500, L500.4050 #### [facility] [address] [place], [address] Potassium [Moles/Vol] 4.2 mmol/L Normal 3.3-5.1 [facility] Comment on above: Order Comment: 106 Performed By: #### L 100.0500, L500.4050 #### [facility] [address] [place], [address] Sodium [Moles/Vol] 136 mmol/L Normal 133-145 [facility] Comment on above: Order Comment: 106 Performed By: #### L 100.0500, L500.4050 #### [facility] [address] [place], [address] T PROT 7.4 g/dL Normal 5.9-8.4 [facility] Comment on above: Order Comment: 106 Performed By: #### L 100.0500, L500.4050 #### [facility] [address] [place], [address] Urea nitrogen [Mass/Vol] 18 mg/dL Normal 4-19 [facility] Comment on above: Order Comment: 106 Performed By: #### L 100.0500, L500.4050 #### [facility] [address] [place], [place], [address] CBC panel Auto (Bld)on 11-03 Erythrocyte distribution width (RBC) [Ratio] 12.2 % 11.5 - 14.5 % [facility] Hematocrit (Bld) [Volume fraction] 42.7 % 41.0 - 52.0 % [facility] Hemoglobin (Bld) [Mass/Vol] 13.6 g/dL 13.5 - 17.5 g/dL [facility] Interpretation and review of laboratory results Abnormal [facility] MCH (RBC) [Entitic mass] 30 pg 26.0 - 34.0 pg [facility] MCHC (RBC) [Mass/Vol] 31.9 g/dL Low 32.0 - 36.0 g/dL [facility] MCV (RBC) [Entitic vol] 94 fL 80 - 100 fL [facility] Nucleated RBC/100 WBC (Bld) [Ratio] 0 % [facility] Platelets (Bld) [#/Vol] 174 10*3/uL [facility] RBC (Bld) [#/Vol] 4.54 10*6/uL [facility] WBC (Bld) [#/Vol] 8 10*3/uL [facility] Erythrocyte distribution width (RBC) [Ratio] 12.2 % Normal 11.5-14.5 [facility] Comment on above: Performed By: #### 5 8410-2 ####MIRANDA Sims ([id number])[facility] ([facility])[address] [place] [address] Hematocrit (Bld) [Volume fraction] 42.7 % Normal 41.0-52.0 [facility] Comment on above: Performed By: #### 5 8410-2 ####MIRANDA Sims ([id number])[facility] ([facility])[id number] [place] [address] Hemoglobin (Bld) [Mass/Vol] 13.6 g/dL Normal 13.5-17.5 [facility] Comment on above: Performed By: #### 5 8410-2 ####MIRANDA Sims ([id number])[facility] ([facility])[address] [place] [address] MCH (RBC) [Entitic mass] 30.0 pg Normal 26.0-34.0 [facility] Comment on above: Performed By: #### 5 8410-2 ####MIRANDA Sims ([id number])[facility] ([facility])[address] [place] [address] MCHC (RBC) [Mass/Vol] 31.9 g/dL Low 32.0-36.0 [facility] Comment on above: Performed By: #### 5 8410-2 ####MIRNADA Sims ([id number])[facility] ([facility])[address] [place] [address] MCV (RBC) [Entitic vol] 94 fL Normal 80-100 [facility] Comment on above: Performed By: #### 5 8410-2 ####MIRANDA Sims ([id number])[facility] ([facility])[address] [place] [address] Nucleated RBC/100 WBC (Bld) [Ratio] 0.0 /100 WBCs Normal 0.0-0.0 [facility] Comment on above: Performed By: #### 5 8410-2 ####MIRANDA Sims ([id number])[facility] ([facility])[id number] [place] [address] Platelets (Bld) [#/Vol] 174 x10*3/uL Normal 150-450 [facility] Comment on above: Performed By: #### 5 8410-2 ####MIRANDA Sims ([id number])[facility] ([facility])[address] [place] [address] RBC (Bld) [#/Vol] 4.54 x10*6/uL Normal 4.50-5.90 [facility] Comment on above: Performed By: #### 5 8410-2 ####MIRANDA Sims ([id number])[facility] ([facility])[address] [place] [address] WBC (Bld) [#/Vol] 8.0 x10*3/uL Normal 4.4-11.3 [facility] Comment on above: Performed By: #### 5 8410-2 ####MIRANDA Sims ([id number])[facility] ([facility])[address] [place] [address] CBC panel Auto (Bld)on 11-02 Erythrocyte distribution width (RBC) [Ratio] 12.1 % 11.5 - 14.5 % [facility] Hematocrit (Bld) [Volume fraction] 41.3 % 41.0 - 52.0 % [facility] Hemoglobin (Bld) [Mass/Vol] 13.6 g/dL 13.5 - 17.5 g/dL [facility] Interpretation and review of laboratory results Abnormal [facility] MCH (RBC) [Entitic mass] 29.8 pg 26.0 - 34.0 pg [facility] MCHC (RBC) [Mass/Vol] 32.9 g/dL 32.0 - 36.0 g/dL [facility] MCV (RBC) [Entitic vol] 90 fL 80 - 100 fL [facility] Nucleated RBC/100 WBC (Bld) [Ratio] 0 % [facility] Platelets (Bld) [#/Vol] 209 10*3/uL [facility] RBC (Bld) [#/Vol] 4.57 10*6/uL [facility] WBC (Bld) [#/Vol] 13.9 10*3/uL [facility] Erythrocyte distribution width (RBC) [Ratio] 12.1 % Normal 11.5-14.5 [facility] Comment on above: Performed By: #### 5 8410-2 ####MIRANDA Sims ([id number])[facility] ([facility])[address] [place] [address] Hematocrit (Bld) [Volume fraction] 41.3 % Normal 41.0-52.0 [facility] Comment on above: Performed By: #### 5 8410-2 ####MIRANDA Sims ([id number])[facility] ([facility])[address] [place] [address] Hemoglobin (Bld) [Mass/Vol] 13.6 g/dL Normal 13.5-17.5 [facility] Comment on above: Performed By: #### 5 8410-2 ####MIRANDA Sims ([id number])[facility] ([facility])[address] [place] [address] MCH (RBC) [Entitic mass] 29.8 pg Normal 26.0-34.0 [facility] Comment on above: Performed By: #### 5 8410-2 ####MIRANDA Sims ([id number])[facility] ([facility])[address] [place] [address] MCHC (RBC) [Mass/Vol] 32.9 g/dL Normal 32.0-36.0 [facility] Comment on above: Performed By: #### 5 8410-2 ####MIRANDA Sims ([id number])[facility] ([facility])[address] [place] [address] MCV (RBC) [Entitic vol] 90 fL Normal 80-100 [facility] Comment on above: Performed By: #### 5 8410-2 ####MIRANDA Sims ([id number])[facility] ([facility])[address] [place] [address] Nucleated RBC/100 WBC (Bld) [Ratio] 0.0 /100 WBCs Normal 0.0-0.0 [facility] Comment on above: Performed By: #### 5 8410-2 ####MIRANDA Sims ([id number])[facility] ([facility])[address] [place] [address] Platelets (Bld) [#/Vol] 209 x10*3/uL Normal 150-450 [facility] Comment on above: Performed By: #### 5 8410-2 ####MIRANDA Sims ([id number])[facility] ([facility])[address] [place] [address] RBC (Bld) [#/Vol] 4.57 x10*6/uL Normal 4.50-5.90 [facility] Comment on above: Performed By: #### 5 8410-2 ####MIRANDA Sims ([id number])[facility] ([facility])[address] [place] [address] WBC (Bld) [#/Vol] 13.9 x10*3/uL High 4.4-11.3 [facility] Comment on above: Performed By: #### 5 8410-2 ####MIRANDA Sims ([id number])[facility] ([facility])[address] [place] [address] Renal function 2000 panelon 11-02-2024 Albumin BCP dye [Mass/Vol] 3.9 g/dL 3.4 - 5.0 g/dL [facility] Anion gap [Moles/Vol] 14 mmol/L 10 - 20 mmol/L [facility] Calcium [Mass/Vol] 8.9 mg/dL 8.6 - 10. 6 mg/dL [facility] Chloride [Moles/Vol] 100 mmol/L 98 - 10 7 mmol/L [facility] CO2 [Moles/Vol] 28 mmol/L 21 - 32 mmol/L [facility] Creatinine [Mass/Vol] 1.02 mg/dL 0.50 - 1.30 mg/dL [facility] eGFR - PINF [facility] Comment on above: Calculations of davey mated GFR are performed using the 2020 CKD-EPI Study Refit equation without the race variable for the IDMS-Traceable creatinine methods. https://jasn.asnjournals.org/content//ASN.25910 37440 Glucose [Mass/Vol] 170 mg/dL High 74 - 99 mg/dL [facility] Interpretation and review of laboratory results Abnormal [facility] Phosphate [Mass/Vol] 3.3 mg/dL 2.5 - 4 .9 mg/dL [facility] Potassium [Moles/Vol] 4.2 mmol/L 3.5 - 5.3 mmol/L [facility] Sodium [Moles/Vol] 138 mmol/L 136 - 145 mmol/L [facility] Urea nitrogen [Mass/Vol] 14 mg/dL 6 - 23 mg/dL [facility] Albumin BCP dye [Mass/Vol] 3.9 g/dL Normal 3.4-5.0 [facility] Comment on above: Performed By: #### 2 4362-6 ####MIRANDA Sims ([id number])[facility] ([facility])[address] [place] [address] Anion gap [Moles/Vol] 14 mmol/L Normal 10-20 [facility] Comment on above: Performed By: #### 2 4362-6 ####MIRANDA Sims ([id number])[facility] ([facility])[address] [place] [address] Calcium [Mass/Vol] 8.9 mg/dL Normal 8.6-10.6 [facility] Comment on above: Performed By: #### 2 4362-6 ####MIRANDA GONZALEZ L ([id number])[facility] ([facility])[address] [place] [address] Chloride [Moles/Vol] 100 mmol/L Normal 98-107 [facility] Comment on above: Performed By: #### 2 4362-6 ####MIRANDA Sims ([id number])[facility] ([facility])[address] [place] [address] CO2 [Moles/Vol] 28 mmol/L Normal 21-32 [facility] Comment on above: Performed By: #### 2 4362-6 ####MIRANDA Sims ([id number])[facility] ([facility])[address] [place] [address] Creatinine [Mass/Vol] 1.02 mg/dL Normal 0.50-1.30 [facility] Comment on above: Performed By: #### 2 4362-6 ####MIRANDA Sims ([id number])[facility] ([facility])[address] [place] [address] GFR/1.73 sq M.predicted MDRD (S/P/Bld) [Vol rate/Area] mL/min/{1.73_m2} Normal >60 [facility] Comment on above: Result Comment: Calc ulations of estimated GFR are performed using the 2020 CKD-EPI Study Refit equation without the race variable for the IDMS-Traceable creatinine methods. https://jasn.asnjournals.org/content//ASN.82886 11250 Performed By: #### 2 4362-6 ####MIRANDA Sims ([id number])[facility] ([facility])[address] [place] [address] Glucose [Mass/Vol] 170 mg/dL High 74-99 [facility] Comment on above: Performed By: #### 2 4362-6 ####MIRANDA Sims ([id number])[facility] ([facility])[address] [place] [address] Phosphate [Mass/Vol] 3.3 mg/dL Normal 2.5-4.9 [facility] Comment on above: Performed By: #### 2 4362-6 ####MIRANDA Sims ([id number])[facility] ([facility])[address] [place] [address] Potassium [Moles/Vol] 4.2 mmol/L Normal 3.5-5.3 [facility] Comment on above: Performed By: #### 2 4362-6 ####MIRANDA Sims ([id number])[facility] ([facility])[address] [place] [address] Sodium [Moles/Vol] 138 mmol/L Normal 136-145 [facility] Comment on above: Performed By: #### 2 4362-6 ####MIRANDA GONZALEZ L ([id number])[facility] ([facility])[address] [place] [address] Urea nitrogen [Mass/Vol] 14 mg/dL Normal 6-23 [facility] Comment on above: Performed By: #### 2 4362-6 ####MIRANDA Sims ([id number])[facility] ([facility])[id number] [place] [address] TSH WITH REFLEX TO FREE T4 I F ABNORMALon 11-02-2024 TSH Qn 1.52 m[IU]/L Normal 0.44-3.98 [facility] Comment on above: Order Comment: TSH t esting is performed using different testing methodology at [facility] than at other [facility]. Direct result comparisons should only be made within the same method. Performed By: #### T HYDS ####MIRANDA Sims ([id number])[facility] ([facility])[id number] [place] [address] TSH with reflex to Free T4 i f abnormalon 11-02-2024 Interpretation and review of laboratory results Normal [facility] TSH Qn 1.52 m[IU]/L [facility] TSH testing is performed using different testing methodology at [facility] than at other [facility]. Direct result comparisons should only be made within the same method. [facility] Blood type and Indirect anti body screen panel (Bld)on 11-01-2024 ABO group Nom (Bld) A [facility] Blood group antibody screen Ql Negative [facility] D Ag Ql (Bld) Positive [facility] CBC panel Auto (Bld)on 11-01 Erythrocyte distribution width (RBC) [Ratio] 12.3 % 11.5 - 14.5 % [facility] Hematocrit (Bld) [Volume fraction] 45.5 % 41.0 - 52.0 % [facility] Hemoglobin (Bld) [Mass/Vol] 15.2 g/dL 13.5 - 17.5 g/dL [facility] Interpretation and review of laboratory results Normal [facility] MCH (RBC) [Entitic mass] 30.4 pg 26.0 - 34.0 pg [facility] MCHC (RBC) [Mass/Vol] 33.4 g/dL 32.0 - 36.0 g/dL [facility] MCV (RBC) [Entitic vol] 91 fL 80 - 100 fL [facility] Nucleated RBC/100 WBC (Bld) [Ratio] 0 % [facility] Platelets (Bld) [#/Vol] 204 10*3/uL [facility] RBC (Bld) [#/Vol] 5 10*6/uL [facility] WBC (Bld) [#/Vol] 10.2 10*3/uL [facility] Erythrocyte distribution width (RBC) [Ratio] 12.3 % Normal 11.5-14.5 [facility] Comment on above: Performed By: #### 5 8410-2 ####MIRANDA Sims ([id number])[facility] ([facility])[address] [place] [address] Hematocrit (Bld) [Volume fraction] 45.5 % Normal 41.0-52.0 [facility] Comment on above: Performed By: #### 5 8410-2 ####MIRANDA Sims ([id number])[facility] ([facility])[address] [place] [address] Hemoglobin (Bld) [Mass/Vol] 15.2 g/dL Normal 13.5-17.5 [facility] Comment on above: Performed By: #### 5 8410-2 ####MIRANDA Sims ([id number])[facility] ([facility])[address] [place] [address] MCH (RBC) [Entitic mass] 30.4 pg Normal 26.0-34.0 [facility] Comment on above: Performed By: #### 5 8410-2 ####MIRANDA Sims ([id number])[facility] ([facility])[address] [place] [address] MCHC (RBC) [Mass/Vol] 33.4 g/dL Normal 32.0-36.0 [facility] Comment on above: Performed By: #### 5 8410-2 ####MIRANDA Sims ([id number])[facility] ([facility])[address] [place] [address] MCV (RBC) [Entitic vol] 91 fL Normal 80-100 [facility] Comment on above: Performed By: #### 5 8410-2 ####MIRANDA Sims ([id number])[facility] ([facility])[address] [place] [address] Nucleated RBC/100 WBC (Bld) [Ratio] 0.0 /100 WBCs Normal 0.0-0.0 [facility] Comment on above: Performed By: #### 5 8410-2 ####MIRANDA Sims ([id number])[facility] ([facility])[address] [place] [address] Platelets (Bld) [#/Vol] 204 x10*3/uL Normal 150-450 [facility] Comment on above: Performed By: #### 5 8410-2 ####MIRANDA Sims ([id number])[facility] ([facility])[address] [place] [address] RBC (Bld) [#/Vol] 5.00 x10*6/uL Normal 4.50-5.90 [facility] Comment on above: Performed By: #### 5 8410-2 ####MIRANDA Sims ([id number])[facility] ([facility])[address] [place] [address] WBC (Bld) [#/Vol] 10.2 x10*3/uL Normal 4.4-11.3 [facility] Comment on above: Performed By: #### 5 8410-2 ####MIRANDA Sims ([id number])[facility] ([facility])[address] [place] [id number] CT Cervical spine WO contras ton 11-01-2024 1. No acute fracture or traumatic malalignment of the cervical spine. I personally reviewed the images/study and resident's interpretation and I agree with the findings as stated by Anisa Mena MD (resident radiologist). This study was analyzed and interpreted at [facility], [place], [place]. MACRO: None. Signed by: Julián Mendez 11/01/2024 1:04 AM Dictation workstation: [id number] Interpreted By: Julián Mendez and Hofer Lindsay STUDY: CT CERVICAL SPINE WO IV CONTRAST; 11/01/2024 12:31 am INDICATION: Signs/Symptoms:fall/s eizure. COMPARISON: None. ACCESSION NUMBER(S): [id number] ORDERING CLINICIAN: EDNA CHOUDHARY TECHNIQUE: Axial noncontrast [...] INDICATION: Signs/Symptoms:fall/s eizure. COMPARISON: None. ACCESSION NUMBER(S): [id number] ORDERING CLINICIAN: EDNA CHOUDHARY TECHNIQUE: Axial noncontrast [...] foraminal stenosis. OTHER: The visualized upper lung collire are clear. IMPRESSION: 1. No acute fracture or traumatic malalignment of the cervical spine. I personally reviewed the images/study and resident's interpretation and I agree with the findings as stated by Anisa Mena MD (resident radiologist). This study was analyzed and interpreted at [place], [place]. MACRO: None. Signed by: Julián Mendez 11/01/2024 1:04 AM Dictation workstation: [id number] [facility] Work Phone: [facility] Work Phone: Creatine Kinaseon 11-01-2024 CK [Catalytic activity/Vol] 56 U/L 0 - 325 U/L [facility] Creatine kinaseon 11-01-2024 CK [Catalytic activity/Vol] 56 U/L Normal 0-325 [facility] Comment on above: Performed By: #### 2 157-6 ####MIRANDA Sims ([id number])[facility] ([facility])[address] [place], [place] [address] DRUG SCREEN,URINEon 11-02-19 25 Amphetamines Screen Ql (U) Negative Presumptive Negative [facility] Comment on above: CUTOFF LEVEL: 500 NG /ML Cross-reactivity has been reported with high concentrations of the following drugs: buproprion, chloroquine, chlorpromazine, ephedrine, mephentermine, fenfluramine, phentermine, phenylpropanolamine, pseudoephedrine, and propranolol. Barbiturates Screen Ql (U) Negative Presumptive Negative [facility] Comment on above: CUTOFF LEVEL: 200 NG /ML Benzodiazepines Ql (U) Negative Presu mptive Negative [facility] Comment on above: CUTOFF LEVEL: 200 NG /ML Benzoylecgonine Screen Ql (U) Positive Abnormal Presumptive Negative [facility] Comment on above: CUTOFF LEVEL: 150 NG /ML Cannabinoids Screen Ql (U) Positive Abnormal Presumptive Negative [facility] Comment on above: CUTOFF LEVEL: 50 NG/ ML fentaNYL+Norfentanyl Screen Ql (U) Negative Presumptive Negative [facility] Comment on above: CUTOFF LEVEL: 5 NG/M L Interpretation and review of laboratory results Abnormal [facility] Methadone Screen Ql (U) Negative Presumptive Negative [facility] Comment on above: CUTOFF LEVEL: 150 NG /ML The metabolite P-cbycm-berjehycqzevip (LAAM) is not detected by this method in concentrations that would be found in the urine of patients on LAAM therapy. Opiates Screen Ql (U) Negative Presum ptive Negative [facility] Comment on above: CUTOFF LEVEL: 300 NG /ML The opiate screen does not detect fentanyl, meperidine, or tramadol. Oxycodone is not consistently detected (refer to Oxycodone Screen, Urine result). oxyCODONE+oxyMORphone Screen Ql (U) Negative Presumptive Negative [facility] Comment on above: CUTOFF LEVEL: 100 NG /ML This test will accurately detect both oxycodone and oxymorphone. Phencyclidine Ql (U) Negative Presump tive Negative [facility] Comment on above: CUTOFF LEVEL: 25 NG/ ML Cross-reactivity has been reported with dextromethorphan. Drug screen results are presumptive and should not be used to assess compliance with prescribed medication. Contact the performing [facility] laboratory to add-on definitive confirmatory testing [...] be directed to the laboratory medical directors. [facility] Amphetamines Screen Ql (U) Negative Normal Presumptive Negative [facility] Comment on above: Order Comment: Drug screen results are presumptive and should not be used to assesscompliance with prescribed medication. Contact the performing [facility] laboratoryto add-on definitive confirmatory testing if [...] Performed By: #### D RUG3 ####MIRANDA Sims ([id number])[facility] ([facility])[address] [place] [address] Barbiturates Screen Ql (U) Negative Normal Presumptive Negative [facility] Comment on above: Order Comment: Drug screen results are presumptive and should not be used to assesscompliance with prescribed medication. Contact the performing [facility] laboratoryto add-on definitive confirmatory testing if [...] NG/ML Performed By: #### D RUG3 ####MIRANDA GONZALEZ L ([id number])[facility] ([facility])[address] [place] [address] Benzodiazepines Ql (U) Negative Normal Presu mptive Negative [facility] Comment on above: Order Comment: Drug screen results are presumptive and should not be used to assesscompliance with prescribed medication. Contact the performing [facility] laboratoryto add-on definitive confirmatory testing if [...] NG/ML Performed By: #### D RUG3 ####MIRANDA GONZALEZ L ([id number])[facility] ([facility])[address] [place] [address] Benzoylecgonine Screen Ql (U) Positive Abnormal Presumptive Negative [facility] Comment on above: Order Comment: Drug screen results are presumptive and should not be used to assesscompliance with prescribed medication. Contact the performing [facility] laboratoryto add-on definitive confirmatory testing if [...] NG/ML Performed By: #### D RUG3 ####MIRANDA CARDTZBETTYE L ([id number])[facility] ([facility])[address] [place] [address] Cannabinoids Screen Ql (U) Positive Abnormal Presumptive Negative [facility] Comment on above: Order Comment: Drug screen results are presumptive and should not be used to assesscompliance with prescribed medication. Contact the performing [facility] laboratoryto add-on definitive confirmatory testing if [...] Performed By: #### D RUG3 ####MIRANDA Sims ([id number])[facility] ([facility])[address] [place] [address] fentaNYL+Norfentanyl Screen Ql (U) Negative Normal Presumptive Negative [facility] Comment on above: Order Comment: Drug screen results are presumptive and should not be used to assesscompliance with prescribed medication. Contact the performing [facility] laboratoryto add-on definitive confirmatory testing if [...] NG/ML Performed By: #### D RUG3 ####MIRANDA GONZALEZ L ([id number])[facility] ([facility])[address] [place], [place] [address] Methadone Screen Ql (U) Negative Normal Presumptive Negative [facility] Comment on above: Order Comment: Drug screen results are presumptive and should not be used to assesscompliance with prescribed medication. Contact the performing [facility] laboratoryto add-on definitive confirmatory testing if [...] CUTO FF LEVEL: 150 NG/ML The metabolite J-asata-hdjvwqamlwruqq (LAAM) is not detected by this method in concentrations that would be found in the urine of patients on LAAM therapy. Performed By: #### D RUG3 ####MIRANDA Sims ([id number])[facility] ([facility])[address] [place] [address] Opiates Screen Ql (U) Negative Normal Presum ptive Negative [facility] Comment on above: Order Comment: Drug screen results are presumptive and should not be used to assesscompliance with prescribed medication. Contact the performing [facility] laboratoryto add-on definitive confirmatory testing if [...] Performed By: #### D RUG3 ####MIRANDA Sims ([id number])[facility] ([facility])[address] [place], [place] [address] oxyCODONE+oxyMORphone Screen Ql (U) Negative Normal Presumptive Negative [facility] Comment on above: Order Comment: Drug screen results are presumptive and should not be used to assesscompliance with prescribed medication. Contact the performing [facility] laboratoryto add-on definitive confirmatory testing if [...] both oxycodone and oxymorphone. Performed By: #### D RUG3 ####MIRANDA Sims ([id number])[facility] ([facility])[address] [place] [address] Phencyclidine Ql (U) Negative Normal Presump tive Negative [facility] Comment on above: Order Comment: Drug screen results are presumptive and should not be used to assesscompliance with prescribed medication. Contact the performing [facility] laboratoryto add-on definitive confirmatory testing if [...] been reported with dextromethorphan. Performed By: #### D RUG3 ####MIRANDA Sims ([id number])[facility] ([facility])[address] [place] [address] FL FLUORO IMAGES NO CHARGEon 11-01-2024 FL FLUORO IMAGES NO CHARGE These images are not reportable by radiology and will not be interpreted by Radiologists. Normal [facility] Lactateon 11-01-2024 Lactate [Moles/Vol] 1.2 mmol/L 0.4 - 2. 0 mmol/L [facility] Lactate [Moles/Vol] 1.2 mmol/L Normal 0.4-2.0 [facility] Comment on above: Order Comment: Venip uncture immediately after or during the administration of Metamizole may lead to falsely low results. Testing should be performed immediately prior to Metamizole dosing. Performed By: #### 2 524-7 ####MIRANDA Sims ([id number])[facility] ([facility])[address] [place] [address] Lactate [Moles/Vol]on 2024 Venipuncture immediately after or during the administration of Metamizole may lead to falsely low results. Testing should be performed immediately prior to Metamizole dosing. [facility] No Panel Informationon 11-01 Interpretation and review of laboratory results Normal [facility] CT CHEST/ABDOMEN/PELVIS: *No acute traumatic injury. CT THORACIC AND LUMBAR SPINE: *No acute fracture or traumatic malalignment. I personally reviewed the images/study and I agree with the findings as stated by resident Horacio Loera. This study was interpreted at [place], [place]. MACRO: None. Signed by: Julián Mendez 11/01/2024 1:14 AM Dictation workstation: [id number] Interpreted By: Julián Mendez and Ritchie Brandon STUDY: CT CHEST ABDOMEN PELVIS W IV CONTRAST; CT THORACIC SPINE RETROSPECTIVE RECONSTRUCTION PROTOCOL; CT LUMBAR SPINE RETROSPECTIVE RECONSTRUCTION PROTOCOL; 11/01/2024 12:31 am INDICATION: Signs/Symptoms:fall/s eizure. COMPARISON: Radiograph of the chest 10/31/2024. ACCESSION NUMBER(S): [id number]; [id number]; [id number] ORDERING CLINICIAN: EDNA CHOUDHARY TECHNIQUE: Contiguous axial [...] Mendez MD - 11/01/2024 Interpreted By: Julián Mendez, Errol Leonard STUDY: CT CHEST ABDOMEN PELVIS W IV CONTRAST; CT THORACIC SPINE RETROSPECTIVE RECONSTRUCTION PROTOCOL; CT LUMBAR SPINE RETROSPECTIVE RECONSTRUCTION PROTOCOL; 11/01/2024 12:31 am INDICATION: Signs/Symptoms:fall/s eizure. COMPARISON: Radiograph of the chest 10/31/2024. ACCESSION NUMBER(S): [id number]; [id number]; [id number] ORDERING CLINICIAN: EDNA CHOUDHARY TECHNIQUE: Contiguous axial [...] Horacio Loera. This study was interpreted at [place], [place]. MACRO: None. Signed by: Julián Mendez 11/01/2024 1:14 AM Dictation workstation: [id number] [facility] Work Phone: [facility] Work Phone: Radiology Study observation (narrative) [facility] Work Phone: Renal function 2000 panelon 11-01-2024 Albumin BCP dye [Mass/Vol] 4.4 g/dL 3.4 - 5.0 g/dL [facility] Anion gap [Moles/Vol] 12 mmol/L 10 - 20 mmol/L [facility] Calcium [Mass/Vol] 9.2 mg/dL 8.6 - 10. 6 mg/dL [facility] Chloride [Moles/Vol] 102 mmol/L 98 - 10 7 mmol/L [facility] CO2 [Moles/Vol] 28 mmol/L 21 - 32 mmol/L [facility] Creatinine [Mass/Vol] 0.9 mg/dL 0.50 - 1.30 mg/dL [facility] eGFR - PINF [facility] Comment on above: Calculations of davey mated GFR are performed using the 2020 CKD-EPI Study Refit equation without the race variable for the IDMS-Traceable creatinine methods. https://jasn.asnjournals.org/content//ASN.05320 89391 Glucose [Mass/Vol] 102 mg/dL High 74 - 99 mg/dL [facility] Interpretation and review of laboratory results Abnormal [facility] Phosphate [Mass/Vol] 3.5 mg/dL 2.5 - 4 .9 mg/dL [facility] Potassium [Moles/Vol] 4.5 mmol/L 3.5 - 5.3 mmol/L [facility] Sodium [Moles/Vol] 137 mmol/L 136 - 145 mmol/L [facility] Urea nitrogen [Mass/Vol] 13 mg/dL 6 - 23 mg/dL [facility] Albumin BCP dye [Mass/Vol] 4.4 g/dL Normal 3.4-5.0 [facility] Comment on above: Performed By: #### 2 4362-6 ####MIRANDA Sims ([id number])[facility] ([facility])[address] [place] [address] Anion gap [Moles/Vol] 12 mmol/L Normal 10-20 [facility] Comment on above: Performed By: #### 2 4362-6 ####MIRANDA Sims ([id number])[facility] ([facility])[address] [place] [address] Calcium [Mass/Vol] 9.2 mg/dL Normal 8.6-10.6 [facility] Comment on above: Performed By: #### 2 4362-6 ####MIRANDA Sims ([id number])[facility] ([facility])[address] [place] [address] Chloride [Moles/Vol] 102 mmol/L Normal 98-107 [facility] Comment on above: Performed By: #### 2 4362-6 ####MIRANDA GONZALEZ L ([id number])[facility] ([facility])[address] [place] [address] CO2 [Moles/Vol] 28 mmol/L Normal 21-32 [facility] Comment on above: Performed By: #### 2 4362-6 ####MIRANDA Sims ([id number])[facility] ([facility])[address] [place] [address] Creatinine [Mass/Vol] 0.90 mg/dL Normal 0.50-1.30 [facility] Comment on above: Performed By: #### 2 4362-6 ####MIRANDA Sims ([id number])[facility] ([facility])[address] [place] [address] GFR/1.73 sq M.predicted MDRD (S/P/Bld) [Vol rate/Area] mL/min/{1.73_m2} Normal >60 [facility] Comment on above: Result Comment: Calc ulations of estimated GFR are performed using the 2020 CKD-EPI Study Refit equation without the race variable for the IDMS-Traceable creatinine methods. https://jasn.asnjournals.org/content/early/ASN.73438 63329 Performed By: #### 2 4362-6 ####MIRANDA Sims ([id number])[facility] ([facility])[address] [place] [address] Glucose [Mass/Vol] 102 mg/dL High 74-99 [facility] Comment on above: Performed By: #### 2 4362-6 ####MIRANDA Sims ([id number])[facility] ([facility])[address] [place] [address] Phosphate [Mass/Vol] 3.5 mg/dL Normal 2.5-4.9 [facility] Comment on above: Performed By: #### 2 4362-6 ####MIRANDA Sims ([id number])[facility] ([facility])[address] [place] [address] Potassium [Moles/Vol] 4.5 mmol/L Normal 3.5-5.3 [facility] Comment on above: Performed By: #### 2 4362-6 ####MIRANDA Sims ([id number])[facility] ([facility])[address] [place] [address] Sodium [Moles/Vol] 137 mmol/L Normal 136-145 [facility] Comment on above: Performed By: #### 2 4362-6 ####MIRANDA Sims ([id number])[facility] ([facility])[address] [place] [address] Urea nitrogen [Mass/Vol] 13 mg/dL Normal - [facility] Comment on above: Performed By: #### 2 4362-6 ####MIRANDA Sims ([id number])[facility] ([facility])[address] [place] [address] XR tomography Unspecified vanessa dy regionon 11-01-2024 These images are not reportable by radiology and will not be interpreted by Radiologists. IMAGING Blood type and Indirect anti body screen panel (Bld)on 10-31-2024 ABO group Nom (Bld) A Normal [facility] Comment on above: Performed By: #### 3 4532-2 ####MIRANDA Sims ([id number])[facility] ([facility])[address] [place] [phone] Blood group antibody screen Ql Negative Normal [facility] Comment on above: Performed By: #### 3 4532-2 ####MIRANDA Sims ([id number])[facility] ([facility])[address] [place], [place] [address] D Ag Ql (Bld) Positive Normal [facility] Comment on above: Performed By: #### 3 4532-2 ####MIRANDA Sims ([id number])[facility] ([facility])[address] [place] [address] CBC W Auto Differential pane l (Bld)on 10-31-2024 Basophils (Bld) [#/Vol] 0.07 10*3/uL [facility] Basophils/100 WBC (Bld) 0.5 % 0.0 - 2.0 % [facility] Eosinophils (Bld) [#/Vol] 0.09 10*3/uL [facility] Eosinophils/100 WBC (Bld) 0.7 % 0.0 - 6.0 % [facility] Erythrocyte distribution width (RBC) [Ratio] 12 % 11.5 - 14.5 % [facility] Hematocrit (Bld) [Volume fraction] 45.9 % 41.0 - 52.0 % [facility] Hemoglobin (Bld) [Mass/Vol] 16.3 g/dL 13.5 - 17.5 g/dL [facility] Immature granulocytes (Bld) [#/Vol] 0.09 10*3/uL [facility] Immature granulocytes/100 WBC (Bld) 0.7 % 0.0 - 0.9 % [facility] Comment on above: Immature Granulocyte Count (IG) includes promyelocytes, myelocytes and metamyelocytes but does not include bands. Percent differential counts (%) should be interpreted in the context of the absolute cell counts (cells/UL). Interpretation and review of laboratory results Abnormal [facility] Lymphocytes (Bld) [#/Vol] 2.28 10*3/uL [facility] Lymphocytes/100 WBC (Bld) 16.5 % 13.0 - 44.0 % [facility] MCH (RBC) [Entitic mass] 30.2 pg 26.0 - 34.0 pg [facility] MCHC (RBC) [Mass/Vol] 35.5 g/dL 32.0 - 36.0 g/dL [facility] MCV (RBC) [Entitic vol] 85 fL 80 - 100 fL [facility] Monocytes (Bld) [#/Vol] 0.96 10*3/uL [facility] Monocytes/100 WBC (Bld) 7 % 2.0 - 10.0 % [facility] Neutrophils (Bld) [#/Vol] 10.32 10*3/uL High [facility] Comment on above: Percent differential counts (%) should be interpreted in the context of the absolute cell counts (cells/uL). Neutrophils/100 WBC (Bld) 74.6 % 40.0 - 80.0 % [facility] Nucleated RBC/100 WBC (Bld) [Ratio] 0 % [facility] Platelets (Bld) [#/Vol] 230 10*3/uL [facility] RBC (Bld) [#/Vol] 5.4 10*6/uL [facility] WBC (Bld) [#/Vol] 13.8 10*3/uL [facility] Basophils (Bld) [#/Vol] 0.07 x10*3/uL Normal 0.00-0.10 [facility] Comment on above: Performed By: #### 5 7021-8 #### MIRANDA Sims ([id number]) [facility] ([facility]) [address] [place] [address] Basophils/100 WBC (Bld) 0.5 % Normal 0.0-2.0 [facility] Comment on above: Performed By: #### 5 7021-8 #### MIRANDA Sims ([id number]) [facility] ([facility]) [address] [place] [address] Eosinophils (Bld) [#/Vol] 0.09 x10*3/uL Normal 0.00-0.70 [facility] Comment on above: Performed By: #### 5 7021-8 #### MIRANDA GONZALEZ L ([id number]) [facility] ([facility]) [address] [place] [address] 16951 Eosinophils/100 WBC (Bld) 0.7 % Normal 0.0-6.0 [facility] Comment on above: Performed By: #### 5 7021-8 #### MIRANDA Sims ([id number]) [facility] ([facility]) [address] [place] [address] 27221 Erythrocyte distribution width (RBC) [Ratio] 12.0 % Normal 11.5-14.5 [facility] Comment on above: Performed By: #### 5 7021-8 #### MIRANDA GONZALEZ L ([id number]) [facility] ([facility]) [address] [place] [address] 23544 Hematocrit (Bld) [Volume fraction] 45.9 % Normal 41.0-52.0 [facility] Comment on above: Performed By: #### 5 7021-8 #### MIRANDA GONZALEZ L ([id number]) [facility] ([facility]) [address] [place] [address] 19003 Hemoglobin (Bld) [Mass/Vol] 16.3 g/dL Normal 13.5-17.5 [facility] Comment on above: Performed By: #### 5 7021-8 #### MIRANDA Sims ([id number]) [facility] ([facility]) [address] [place] [address] 21485 Immature granulocytes (Bld) [#/Vol] 0.09 x10*3/uL Normal 0.00-0.70 [facility] Comment on above: Performed By: #### 5 7021-8 #### MIRANDA Sims ([id number]) [facility] ([facility]) [address] [place] [address] 04469 Immature granulocytes/100 WBC (Bld) 0.7 % Normal 0.0-0.9 [facility] Comment on above: Result Comment: Zora ture Granulocyte Count (IG) includes promyelocytes, myelocytes and metamyelocytes but does not include bands. Percent differential counts (%) should be interpreted in the context of the absolute cell counts (cells/UL). Performed By: #### 5 7021-8 #### MIRANDA Sims ([id number]) [facility] ([facility]) [address] [place] [address] 08251 Lymphocytes (Bld) [#/Vol] 2.28 x10*3/uL Normal 1.20-4.80 [facility] Comment on above: Performed By: #### 5 7021-8 #### MIRANDA Sims ([id number]) [facility] ([facility]) [address] [place] [address] 33271 Lymphocytes/100 WBC (Bld) 16.5 % Normal 13.0-44.0 [facility] Comment on above: Performed By: #### 5 7021-8 #### MIRANDA Sims ([id number]) [facility] ([facility]) [address] [place] [address] 87954 MCH (RBC) [Entitic mass] 30.2 pg Normal 26.0-34.0 [facility] Comment on above: Performed By: #### 5 7021-8 #### MIRANDA Sims ([id number]) [facility] ([facility]) [address] [place] [address] MCHC (RBC) [Mass/Vol] 35.5 g/dL Normal 32.0-36.0 [facility] Comment on above: Performed By: #### 5 7021-8 #### MIRANDA Sims ([id number]) [facility] ([facility]) [address] [place] [address] 95320 MCV (RBC) [Entitic vol] 85 fL Normal 80-100 [facility] Comment on above: Performed By: #### 5 7021-8 #### MIRANDA Sims ([id number]) [facility] ([facility]) [address] [place] [address] 71298 Monocytes (Bld) [#/Vol] 0.96 x10*3/uL Normal 0.10-1.00 [facility] Comment on above: Performed By: #### 5 7021-8 #### MIRANDA Sims ([id number]) [facility] ([facility]) [address] [place] [address] 60872 Monocytes/100 WBC (Bld) 7.0 % Normal 2.0-10.0 [facility] Comment on above: Performed By: #### 5 7021-8 #### MIRANDA Sims ([id number]) [facility] ([facility]) [address] [place] [address] 52589 Neutrophils (Bld) [#/Vol] 10.32 x10*3/uL High 1.20-7.70 [facility] Comment on above: Result Comment: Perc ent differential counts (%) should be interpreted in the context of the absolute cell counts (cells/uL). Performed By: #### 5 7021-8 #### MIRANDA GONZALEZ L ([id number]) [facility] ([facility]) [address] [place] [address] Neutrophils/100 WBC (Bld) 74.6 % Normal 40.0-80.0 [facility] Comment on above: Performed By: #### 5 7021-8 #### MIRANDA ARANDAER L ([id number]) [facility] ([facility]) [address] [place] [address] Nucleated RBC/100 WBC (Bld) [Ratio] 0.0 /100 WBCs Normal 0.0-0.0 [facility] Comment on above: Performed By: #### 5 7021-8 #### MIRANDA SCHMOTZER L ([id number]) [facility] ([facility]) [address] [place] [address] 41620 Platelets (Bld) [#/Vol] 230 x10*3/uL Normal 150-450 [facility] Comment on above: Performed By: #### 5 7021-8 #### MIRANDA SCHMOTZER L ([id number]) [facility] ([facility]) [address] [place] [address] 95841 RBC (Bld) [#/Vol] 5.40 x10*6/uL Normal 4.50-5.90 [facility] Comment on above: Performed By: #### 5 7021-8 #### MIRANDA STEVEMOTZER L ([id number]) [facility] ([facility]) [address] [place] [address] 06820 WBC (Bld) [#/Vol] 13.8 x10*3/uL High 4.4-11.3 [facility] Comment on above: Performed By: #### 5 7021-8 #### MIRANDA STEVEMOTZER L ([id number]) [facility] ([facility]) [address] [place] [address] ANKLE RIGHT WO IV CONTRAS Ton 10-31-2024 CT ANKLE RIGHT WO IV CONTRAST Interpreted By: Julián Mendez and Ritchie Brandon STUDY: CT of right foot without contrast. INDICATION: Signs/Symptoms:ankle fx COMPARISON: Radiographs of the ankle 10/31/2024. ACCESSION NUMBER(S): [id number] ORDERING CLINICIAN: NOAH COLVIN TECHNIQUE: Contiguous axial [...] Horacio Loera. This study was interpreted at [place], [place]. MACRO: None Signed by: Julián Mendez 10/31/2024 11:31 PM Dictation workstation: [id number] Normal [facility] CT Ankle - right WO contrast [...] Horacio Loera. This study was interpreted at [place], [place]. MACRO: None Signed by: Julián Mendez 10/31/2024 11:31 PM Dictation workstation: [id number] MMODAL Interpreted By: Julián Mendez and Evaristo Leonard STUDY: CT of right foot without contrast. INDICATION: Signs/Symptoms:ankle fx COMPARISON: Radiographs of the ankle 10/31/2024. ACCESSION NUMBER(S): [id number] ORDERING CLINICIAN: NOAH COLVIN TECHNIQUE: Contiguous axial [...] and the spiral fracture of the fibula. MMODAL Julián Mendez MD - 10/31/2024 Interpreted By: Julián Mendez and Ritchie Brandon STUDY: CT of right foot without contrast. INDICATION: Signs/Symptoms:ankle fx COMPARISON: Radiographs of the ankle 10/31/2024. ACCESSION NUMBER(S): [id number] ORDERING CLINICIAN: NOAH COLVIN TECHNIQUE: Contiguous axial [...] Horacio Loera. This study was interpreted at [facility], [place], [place]. MACRO: None Signed by: Julián Mendez 10/31/2024 11:31 PM Dictation workstation: [id number] [facility] Work Phone: [facility] Work Phone: [facility] CERVICAL SPINE WO IV CONTRAST Interpreted By: Julián Mendez, Paulina Lange STUDY: CT CERVICAL SPINE WO IV CONTRAST; 11/01/2024 12:31 am INDICATION: Signs/Symptoms:fall/s eizure. COMPARISON: None. ACCESSION NUMBER(S): [id number] ORDERING CLINICIAN: EDNA CHOUDHARY TECHNIQUE: Axial noncontrast [...] This study was analyzed and interpreted at [place], [place]. MACRO: None. Signed by: Julián Mendez 11/01/2024 1:04 AM Dictation workstation: [id number] [facility] CT CHEST ABDOMEN PELVIS W IV CONTRASTon 10-31-2024 CT CHEST ABDOMEN PELVIS W IV CONTRAST Interpreted By: Julián Mendez and Evaristo Leonard STUDY: CT CHEST ABDOMEN PELVIS W IV CONTRAST; CT THORACIC SPINE RETROSPECTIVE RECONSTRUCTION PROTOCOL; CT LUMBAR SPINE RETROSPECTIVE RECONSTRUCTION PROTOCOL; 11/01/2024 12:31 am INDICATION: Signs/Symptoms:fall/s eizure. COMPARISON: Radiograph of the chest 10/31/2024. ACCESSION NUMBER(S): [id number]; [id number]; [id number] ORDERING CLINICIAN: EDNA CHOUDHARY TECHNIQUE: Contiguous axial [...] Horacio Loera. This study was interpreted at [facility], [place], [place]. MACRO: None. Signed by: Julián Mendez 11/01/2024 1:14 AM Dictation workstation: [id number] Normal [facility] CT HEAD WO IV CONTRASTon CT HEAD WO IV CONTRAST Interpreted By: Julián Mendez, Errol Leonard STUDY: CT HEAD WO IV CONTRAST; 10/31/2024 9:49 pm INDICATION: Signs/Symptoms:mult falls, LOC vs seizure COMPARISON: None. ACCESSION NUMBER(S): [id number] ORDERING CLINICIAN: NOAH COLVIN TECHNIQUE: Axial noncontrast [...] Horacio Loera. This study was interpreted at [place], [place]. MACRO: None. Signed by: Julián Mendez 10/31/2024 10:31 PM Dictation workstation: [id number] [facility] CT Head WO contraston 2024 CT HEAD: *No acute intracranial abnormality or calvarial fracture. I personally reviewed the images/study and I agree with the findings as stated by resident Horacio Loera. This study was interpreted at [place], [place]. MACRO: None. Signed by: Julián Mendez 10/31/2024 10:31 PM Dictation workstation: [id number] MMODAL Interpreted By: Julián Mendez and Ritchie Brandon STUDY: CT HEAD WO IV CONTRAST; 10/31/2024 9:49 pm INDICATION: Signs/Symptoms:mult falls, LOC vs seizure COMPARISON: None. ACCESSION NUMBER(S): [id number] ORDERING CLINICIAN: NOAH COLVIN TECHNIQUE: Axial noncontrast [...] visualized. EXTRACRANIAL SOFT TISSUES: No discernible hematoma. MMODAL Julián Mendez MD - 10/31/2024 Interpreted By: Julián Mendez and Ritchie Brandon STUDY: CT HEAD WO IV CONTRAST; 10/31/2024 9:49 pm INDICATION: Signs/Symptoms:mult falls, LOC vs seizure COMPARISON: None. ACCESSION NUMBER(S): [id number] ORDERING CLINICIAN: NOAH COLVIN TECHNIQUE: Axial noncontrast [...] Horacio Loera. This study was interpreted at [facility], [place], [place]. MACRO: None. Signed by: Juilán Mendez 10/31/2024 10:31 PM Dictation workstation: [id number] [facility] Work Phone: [facility] Work Phone: CT LUMBAR SPINE RETROSPECTIV E RECONSTRUCTION PROTOCOLon 10-31-2024 CT LUMBAR SPINE RETROSPECTIVE RECONSTRUCTION PROTOCOL Interpreted By: Julián Mendez and Ritchie Brandon STUDY: CT CHEST ABDOMEN PELVIS W IV CONTRAST; CT THORACIC SPINE RETROSPECTIVE RECONSTRUCTION PROTOCOL; CT LUMBAR SPINE RETROSPECTIVE RECONSTRUCTION PROTOCOL; 11/01/2024 12:31 am INDICATION: Signs/Symptoms:fall/s eizure. COMPARISON: Radiograph of the chest 10/31/2024. ACCESSION NUMBER(S): [id number]; [id number]; [id number] ORDERING CLINICIAN: EDNA CHOUDHARY TECHNIQUE: Contiguous axial [...] with the findings as stated by resident Horaico Loera. This study was interpreted at [place], [place]. MACRO: None. Signed by: Julián Mendez 11/01/2024 1:14 AM Dictation workstation: [id number] Normal [facility] CT THORACIC SPINE RETROSPECT IVONE RECONSTRUCTION PROTOCOLon 10-31-2024 CT THORACIC SPINE RETROSPECTIVE RECONSTRUCTION PROTOCOL Interpreted By: Julián Mendez and Ritchie Brandon STUDY: CT CHEST ABDOMEN PELVIS W IV CONTRAST; CT THORACIC SPINE RETROSPECTIVE RECONSTRUCTION PROTOCOL; CT LUMBAR SPINE RETROSPECTIVE RECONSTRUCTION PROTOCOL; 11/01/2024 12:31 am INDICATION: Signs/Symptoms:fall/s eizure. COMPARISON: Radiograph of the chest 10/31/2024. ACCESSION NUMBER(S): [id number]; [id number]; [id number] ORDERING CLINICIAN: EDNA CHOUDHARY TECHNIQUE: Contiguous axial [...] Horacio Loera. This study was interpreted at [facility], [place], [place]. MACRO: None. Signed by: Julián Mendez 11/01/2024 1:14 AM Dictation workstation: [id number] Normal [facility] Comprehensive metabolic 2000 panelon 10-31-2024 Albumin BCP dye [Mass/Vol] 4.8 g/dL 3.4 - 5.0 g/dL [facility] ALP [Catalytic activity/Vol] 89 U/L 33 - 120 U/L [facility] ALT With P-5'-P [Catalytic activity/Vol] 39 U/L 10 - 52 U/L [facility] Comment on above: Patients treated wit h Sulfasalazine may generate falsely decreased results for ALT. Anion gap [Moles/Vol] 12 mmol/L 10 - 20 mmol/L [facility] AST With P-5'-P [Catalytic activity/Vol] 24 U/L 9 - 39 U/L [facility] Bilirubin [Mass/Vol] 0.6 mg/dL 0.0 - 1 .2 mg/dL [facility] Calcium [Mass/Vol] 10.1 mg/dL 8.6 - 10. 6 mg/dL [facility] Chloride [Moles/Vol] 98 mmol/L 98 - 10 7 mmol/L [facility] CO2 [Moles/Vol] 29 mmol/L 21 - 32 mmol/L [facility] Creatinine [Mass/Vol] 1.14 mg/dL 0.50 - 1.30 mg/dL [facility] GFR/1.73 sq M.predicted among non-blacks MDRD (S/P/Bld) [Vol rate/Area] 88 mL/min/{1.73_m2} - PINF [facility] Comment on above: Calculations of davey mated GFR are performed using the 2020 CKD-EPI Study Refit equation without the race variable for the IDMS-Traceable creatinine methods. https://jasn.asnjournals.org/content//ASN.33163 06974 Glucose [Mass/Vol] 101 mg/dL High 74 - 99 mg/dL [facility] Interpretation and review of laboratory results Abnormal [facility] Potassium [Moles/Vol] 4.4 mmol/L 3.5 - 5.3 mmol/L [facility] Protein [Mass/Vol] 8.2 g/dL 6.4 - 8.2 g/dL [facility] Sodium [Moles/Vol] 135 mmol/L Low 136 - 145 mmol/L [facility] Urea nitrogen [Mass/Vol] 15 mg/dL 6 - 23 mg/dL [facility] Albumin BCP dye [Mass/Vol] 4.8 g/dL Normal 3.4-5.0 [facility] Comment on above: Performed By: #### 2 4323-8 #### MIRANDA Sims ([id number]) [facility] ([facility]) [address] [place] [address] 24654 ALP [Catalytic activity/Vol] 89 U/L Normal 33-120 [facility] Comment on above: Performed By: #### 2 4323-8 #### MIRANDA Sims ([id number]) [facility] ([facility]) [address] [place] [address] 94559 ALT With P-5'-P [Catalytic activity/Vol] 39 U/L Normal 10-52 [facility] Comment on above: Result Comment: Chloe ents treated with Sulfasalazine may generate falsely decreased results for ALT. Performed By: #### 2 4323-8 #### MIRANDA Sims ([id number]) [facility] ([facility]) [address] [place] [address] 30429 Anion gap [Moles/Vol] 12 mmol/L Normal 10-20 [facility] Comment on above: Performed By: #### 2 4323-8 #### MIRANDA Sims ([id number]) [facility] ([facility]) [address] [place] [address] 55961 AST With P-5'-P [Catalytic activity/Vol] 24 U/L Normal 9-39 [facility] Comment on above: Performed By: #### 2 4323-8 #### MIRANDA Sims ([id number]) [facility] ([facility]) [address] [place] [address] 69004 Bilirubin [Mass/Vol] 0.6 mg/dL Normal 0.0-1.2 [facility] Comment on above: Performed By: #### 2 4323-8 #### MIRANDA Sims ([id number]) [facility] ([facility]) [address] [place] [address] 54902 Calcium [Mass/Vol] 10.1 mg/dL Normal 8.6-10.6 [facility] Comment on above: Performed By: #### 2 4323-8 #### MIRANDA Sims ([id number]) [facility] ([facility]) [address] [place] [address] Chloride [Moles/Vol] 98 mmol/L Normal 98-107 [facility] Comment on above: Performed By: #### 2 4323-8 #### MIRANDA Sims ([id number]) [facility] ([facility]) [address] [place] [address] CO2 [Moles/Vol] 29 mmol/L Normal 21-32 [facility] Comment on above: Performed By: #### 2 4323-8 #### MIRANDA Sims ([id number]) [facility] ([facility]) [address] [place] [address] 32441 Creatinine [Mass/Vol] 1.14 mg/dL Normal 0.50-1.30 [facility] Comment on above: Performed By: #### 2 4323-8 #### MIRANDA Sims ([id number]) [facility] ([facility]) [address] [place] [address] Glomerular filtration rate/1.73 sq M.predicted 88 mL/min/1.73m*2 Normal >60 [facility] Comment on above: Result Comment: Calc ulations of estimated GFR are performed using the 2020 CKD-EPI Study Refit equation without the race variable for the IDMS-Traceable creatinine methods. https://jasn.asnjournals.org/content/early//ASN.10587 43843 Performed By: #### 2 4323-8 #### MIRANDA Sims ([id number]) [facility] ([facility]) [address] [place] [address] 78153 Glucose [Mass/Vol] 101 mg/dL High 74-99 [facility] Comment on above: Performed By: #### 2 4323-8 #### MIRANDA Sims ([id number]) [facility] ([facility]) [address] [place] [address] 54641 Potassium [Moles/Vol] 4.4 mmol/L Normal 3.5-5.3 [facility] Comment on above: Performed By: #### 2 4323-8 #### MIRANDA Sims ([id number]) [facility] ([facility]) [address] [place] [address] 41844 Protein [Mass/Vol] 8.2 g/dL Normal 6.4-8.2 [facility] Comment on above: Performed By: #### 2 4323-8 #### MIRANDA Sims ([id number]) [facility] ([facility]) [address] [place] [address] 16702 Sodium [Moles/Vol] 135 mmol/L Low 136-145 [facility] Comment on above: Performed By: #### 2 4323-8 #### MIRANDA Sims ([id number]) [facility] ([facility]) [address] [place] [address] 99892 Urea nitrogen [Mass/Vol] 15 mg/dL Normal 6-23 [facility] Comment on above: Performed By: #### 2 9254-8 #### MIRANDA Sims ([id number]) [facility] ([facility]) [address] [place] [address] 22528 ECG 12 leadOrdered By: Linda Rich on 10-31-2024 Atrial Rate 99 BPM [facility] Work Phone: P Okay 58 degrees [facility] Work Phone: [phone] P Offset 200 ms [facility] Work Phone: [phone] P Onset 148 ms [facility] Work Phone: [phone] [place] Interval 156 ms [facility] Work Phone: Q Onset 226 ms [facility] Work Phone: [phone] QRS Count 16 beats [facility] Work Phone: [phone] QRS Duration 92 ms [facility] Work Phone: QT Interval 340 ms [facility] Work Phone: [phone] QTC Calculation(Bazett) 436 ms [facility] Work Phone: [phone] QTC Fredericia [address] [facility] Work Phone: [phone] R Okay 55 degrees [facility] Work Phone: [phone] T Okay 56 degrees [facility] Work Phone: [phone] T Offset 396 ms [facility] Work Phone: [phone] Ventricular Rate 99 BPM [facility] Work Phone: [phone] [facility] Work Phone: [phone] ECG 12 leadon 10-31-2024 Normal sinus rhythm Nonspecific ST abnormality Abnormal ECG No previous ECGs available See ED provider note for full interpretation and clinical correlation Confirmed by Linda Rich ([id number]) on 10/31/2024 7:19:36 PM Linda Madsen, [employer] - 10/31/2024 Normal sinus rhythm Nonspecific ST abnormality Abnormal ECG No previous ECGs available See ED provider note for full interpretation and clinical correlation Confirmed by Linda Rich ([id number]) on 10/31/2024 7:19:36 PM [facility] Work Phone: Ethanolon 10-31-2024 Ethanol [Mass/Vol] mg/dL NINF - 10 mg/dL [facility] Comment on above: For medical use only . Ethanol [Mass/Vol] mg/dL Normal <=10 [facility] Comment on above: Result Comment: For medical use only. Performed By: #### 5 643-2 ####MIRANDA Sims ([id number])[facility] ([facility])[address] [place] [address] Ethanol [Mass/Vol]on 025 Interpretation and review of laboratory results Normal [facility] Gas panel (BldV)on 5 Anion gap 4 (BldV) [Moles/Vol] 9 mmol/L Low 10.0 - 25.0 mmol/L [facility] Base excess Calc (BldV) [Moles/Vol] 2.7 mmol/L -2.0 - 3.0 mmol/L [facility] Calcium.ionized (BldV) [Moles/Vol] 1.23 mmol/L 1.10 - 1.33 mmol/L [facility] Chloride (BldV) [Moles/Vol] 99 mmol/L 98 - 107 mmol/L [facility] CO2 (BldV) [Partial pressure] 54 mm[Hg] High [facility] Glucose [Mass/Vol] 110 mg/dL High 74 - 99 mg/dL [facility] HCO3 (Bld) [Moles/Vol] 29.8 mmol/L High 22.0 - 26.0 mmol/L [facility] Hematocrit Est (Bld) [Volume fraction] 48 % 41.0 - 52.0 % [facility] Hemoglobin (Bld) [Mass/Vol] 16.1 g/dL 13.5 - 17.5 g/dL [facility] Inhaled oxygen concentration 21 % [facility] Interpretation and review of laboratory results Abnormal [facility] Lactate (BldV) [Moles/Vol] 1.3 mmol/L 0.4 - 2.0 mmol/L [facility] Oxygen (BldV) [Partial pressure] 24 mm[Hg] Low [facility] Oxygen saturation in Venous blood 37 % Low 45 - 75 % [facility] Oxyhemoglobin (BldV) [Mass fraction] 36.4 % Low 45.0 - 75.0 % [facility] pH (BldV) 7.35 [pH] 7.33 - 7.43 pH [facility] Potassium (BldV) [Moles/Vol] 4.6 mmol/L 3.5 - 5.3 mmol/L [facility] Sodium (BldV) [Moles/Vol] 133 mmol/L Low 136 - 145 mmol/L [facility] Anion gap 4 (BldV) [Moles/Vol] 9.0 mmol/L Low 10.0-25.0 [facility] Comment on above: Performed By: #### 2 4339-4 #### MIRANDA Sims ([id number]) [facility] ([facility]) [address] [place] [address] 22537 Base excess Calc (BldV) [Moles/Vol] 2.7 mmol/L Normal -2.0-3.0 [facility] Comment on above: Performed By: #### 2 4339-4 #### MIRANDA Sims ([id number]) [facility] ([facility]) [address] [place] [address] 38331 Calcium.ionized (BldV) [Moles/Vol] 1.23 mmol/L Normal 1.10-1.33 [facility] Comment on above: Performed By: #### 2 4339-4 #### MIRANDA Sims ([id number]) [facility] ([facility]) [address] [place] [address] 99885 Chloride (BldV) [Moles/Vol] 99 mmol/L Normal 98-107 [facility] Comment on above: Performed By: #### 2 4339-4 #### MIRANDA Sims ([id number]) [facility] ([facility]) [address] [place] [address] 13708 CO2 (BldV) [Partial pressure] 54 mm Hg High 41-51 [facility] Comment on above: Performed By: #### 2 4339-4 #### MIRANDA Sims ([id number]) [facility] ([facility]) [address] [place] [address] 83631 Glucose [Mass/Vol] 110 mg/dL High 74-99 [facility] Comment on above: Performed By: #### 2 4339-4 #### MIRANDA Sims ([id number]) [facility] ([facility]) [address] [place] [address]2983 HCO3 (Bld) [Moles/Vol] 29.8 mmol/L High 22.0-26.0 [facility] Comment on above: Performed By: #### 2 4339-4 #### MIRANDA Sims ([id number]) [facility] ([facility]) [id number] [place] [id number] Hematocrit Est (Bld) [Volume fraction] 48.0 % Normal 41.0-52.0 [facility] Comment on above: Performed By: #### 2 4339-4 #### MIRANDA Sims ([id number]) [facility] ([facility]) [id number] [place] [address] 12797 Hemoglobin (Bld) [Mass/Vol] 16.1 g/dL Normal 13.5-17.5 [facility] Comment on above: Performed By: #### 2 4339-4 #### MIRANDA Sims ([id number]) [facility] ([facility]) [address] [place] [address] [address] Inhaled oxygen concentration 21 % Normal [facility] Comment on above: Performed By: #### 2 4339-4 #### MIRANDA Sims ([id number]) [facility] ([facility]) [address] [place] [address] 04159 Lactate (BldV) [Moles/Vol] 1.3 mmol/L Normal 0.4-2.0 [facility] Comment on above: Performed By: #### 2 4339-4 #### MIRANDA Sims ([id number]) [facility] ([facility]) [address] [place] [address] 36490 Oxygen (BldV) [Partial pressure] 24 mm Hg Low 35-45 [facility] Comment on above: Performed By: #### 2 4339-4 #### MIRANDA Sims ([id number]) [facility] ([facility]) [address] [place] [address] 22513 Oxygen saturation in Venous blood 37 % Low 45-75 [facility] Comment on above: Performed By: #### 2 4339-4 #### MIRANDA Sims ([id number]) [facility] ([facility]) [address] [place] [address] 85443 Oxyhemoglobin (BldV) [Mass fraction] 36.4 % Low 45.0-75.0 [facility] Comment on above: Performed By: #### 2 4339-4 #### MIRANDA Sims ([id number]) [facility] ([facility]) [address] [place] [address] 07387 pH (BldV) 7.35 [pH] Normal 7.33-7.43 [facility] Comment on above: Performed By: #### 2 4339-4 #### MIRANDA Sims ([id number]) [facility] ([facility]) [address] [place] [address] 66062 Potassium (BldV) [Moles/Vol] 4.6 mmol/L Normal 3.5-5.3 [facility] Comment on above: Performed By: #### 2 4339-4 #### MIRANDA Sims ([id number]) [facility] ([facility]) [address] [place] [address] 08478 Sodium (BldV) [Moles/Vol] 133 mmol/L Low 136-145 [facility] Comment on above: Performed By: #### 2 4339-4 #### MIRANDA Sims ([id number]) [facility] ([facility]) [address] [place] [address] 00853 Glucose Test strip manual (B ld) [Mass/Vol]on 10-31-2024 Glucose [Mass/Vol] 108 mg/dL High 74 - 99 mg/dL [facility] Interpretation and review of laboratory results Abnormal [facility] Glucose [Mass/Vol] 108 mg/dL High 74-99 [facility] Comment on above: Performed By: #### 2 341-6 #### MIRANDA Sims ([id number]) [facility] ([facility]) [address] [place] [address] 23347 Magnesiumon 10-31-2024 Magnesium [Mass/Vol] 2.37 mg/dL 1.60 - 2.40 mg/dL [facility] Magnesium [Mass/Vol] 2.37 mg/dL Normal 1.60-2.40 [facility] Comment on above: Performed By: #### 1 9123-9 #### MIRANDA Sims ([id number]) [facility] ([facility]) [address] [place] [address] Magnesium [Mass/Vol]on 10-31 Interpretation and review of laboratory results Normal [facility] No Panel Informationon 10-31 Radiology Study observation (narrative) [facility] Work Phone: [facility] Comminuted distal fibular fracture with additional medial malleolar avulsion injury. Suspected medial clear space widening. No evidence of syndesmotic widening. MACRO: None Signed by: Bryson Fam 10/31/2024 6:41 PM Dictation workstation: [id number] MMODAL Interpreted By: Bryson Fam, STUDY: XR TIBIA FIBULA RIGHT 2 VIEWS; XR ANKLE RIGHT 3+ VIEWS; XR KNEE RIGHT 4+ VIEWS; ; 10/31/2024 6:31 pm; 10/31/2024 6:32 pm INDICATION: Signs/Symptoms:pain after injury; Signs/Symptoms:r/o fx. COMPARISON: None. ACCESSION NUMBER(S): [id number]; [id number]; [id number] ORDERING CLINICIAN: NOAH STUART FINDINGS: Four views [...] injury; Signs/Symptoms:r/o fx. COMPARISON: None. ACCESSION NUMBER(S): [id number]; [id number]; [id number] ORDERING CLINICIAN: NOAH COLVIN; IKE STUART FINDINGS: [...] syndesmotic widening. MACRO: None Signed by: Bryson aFm 10/31/2024 6:41 PM Dictation workstation: [id number] [facility] Work Phone: Radiology Study observation (narrative) [facility] Work Phone: No Panel InformationOrdered By: Bryson Fam on 10-31-2024 [facility] Work Phone: PT and aPTT panel Coag (PPP) on 10-31-2024 aPTT Coag (PPP) [Time] 26 s [facility] INR Coag (PPP) [Relative time] 1 {INR} 0.9 - 1.1 [facility] Interpretation and review of laboratory results Normal [facility] PT Coag (PPP) [Time] 11 s [facility] The APTT is no longe r used for monitoring Unfractionated Heparin Therapy. For monitoring Heparin Therapy, use the Heparin Assay. [facility] aPTT Coag (PPP) [Time] 26 s Normal 26-36 [facility] Comment on above: Order Comment: The A PTT is no longer used for monitoring Unfractionated Heparin Therapy. For monitoring Heparin Therapy, use the Heparin Assay. Performed By: #### 3 4529-8 ####MIRANDA Sims ([id number])[facility] ([facility])[address] [place] [address] INR Coag (PPP) [Relative time] 1.0 Normal 0.9-1.1 [facility] Comment on above: Order Comment: The A PTT is no longer used for monitoring Unfractionated Heparin Therapy. For monitoring Heparin Therapy, use the Heparin Assay. Performed By: #### 3 4529-8 ####MIRANDA Sims ([id number])[facility] ([facility])[address] [place] [address] PT Coag (PPP) [Time] 11.0 s Normal 9.8-12.4 [facility] Comment on above: Order Comment: The A PTT is no longer used for monitoring Unfractionated Heparin Therapy. For monitoring Heparin Therapy, use the Heparin Assay. Performed By: #### 3 4529-8 ####MIRANDA CARDTZBETTYE Sims ([id number])[facility] ([facility])[address] [place] [address] Tropinin I.cardiac panel Hig h sensitivity methodon 10-31-2024 Interpretation and review of laboratory results Normal [facility] Less than 99th percentile of normal [...] performed using a different testing methodology at [facility] than at other [facility]. Direct result comparisons should only be made within the same method. [facility] Interpretation and review of laboratory results Normal [facility] Less than 99th percentile of normal [...] performed using a different testing methodology at [facility] than at other [facility]. Direct result comparisons should only be made within the same method. [facility] Troponin I, High Sensitivity , Initialon 10-31-2024 Tropinin I.cardiac panel High sensitivity method ng/L 0 - 53 ng/L [facility] Troponin I.cardiac panelon 0 10-31-2024 Tropinin I.cardiac panel High sensitivity method <3 Normal 0-53 [facility] Comment on above: Order Comment: Less [...] is performed using a differenttesting methodology at [facility] than at [facility]. Direct result comparisons should onlybe made within the same method. Performed By: #### 8 9577-1 ####MIRANDA Sims ([id number])[facility] ([facility])[address] [place] [address] Tropinin I.cardiac panel High sensitivity method <3 Normal 0-53 [facility] Comment on above: Order Comment: Less [...] performed using a different testing methodology at [facility] than at other [facility]. Direct result comparisons should only be made within the same method. Performed By: #### 8 9577-1 #### MIRANDA Sims ([id number]) [facility] ([facility]) [address] [place] [address] Troponin, High Sensitivity, 1 Houron 10-31-2024 Tropinin I.cardiac panel High sensitivity method ng/L 0 - 53 ng/L [facility] XR ANKLE RIGHT 3+ VIEWSon XR ANKLE RIGHT 3+ VIEWS Interpreted By: Julián Mendez and Ritchie Brandon STUDY: XR ANKLE RIGHT 3+ VIEWS; ; 10/31/2024 9:38 pm INDICATION: Signs/Symptoms:post reduction. COMPARISON: Radiograph of the right ankle 10/31/2024, 6:32 p.m.. ACCESSION NUMBER(S): [id number] ORDERING CLINICIAN: NOAH COLVIN TECHNIQUE: Three views [...] Horacio Loera. This study was interpreted at [facility], [place], [place]. MACRO: None Signed by: Julián Mendez 10/31/2024 10:25 PM Dictation workstation: [id number] [facility] XR ANKLE RIGHT 3+ VIEWS Interpreted By: Bryson Fam, STUDY: XR TIBIA FIBULA RIGHT 2 VIEWS; XR ANKLE RIGHT 3+ VIEWS; XR KNEE RIGHT 4+ VIEWS; ; 10/31/2024 6:31 pm; 10/31/2024 6:32 pm INDICATION: Signs/Symptoms:pain after injury; Signs/Symptoms:r/o fx. COMPARISON: None. ACCESSION NUMBER(S): [id number]; [id number]; [id number] ORDERING CLINICIAN: NOAH STUART FINDINGS: Four views [...] Bryson Fam 10/31/2024 6:41 PM Dictation workstation: [id number] [facility] XR Ankle - right 3 Viewson 0 10-31-2024 *Comminuted fibula fracture with similar alignment compared to prior imaging. Previously described medial malleolus avulsion fracture is not well visualized, likely obscured by overlying cast material. I personally reviewed the images/study and I agree with the findings as stated by resident Horacio Loera. This study was interpreted at [place], [place]. MACRO: None Signed by: Julián Mendez 10/31/2024 10:25 PM Dictation workstation: [id number] [facility]AL Interpreted By: Julián Mendez and Ritchie Brandon STUDY: XR ANKLE RIGHT 3+ VIEWS; ; 10/31/2024 9:38 pm INDICATION: Signs/Symptoms:post reduction. COMPARISON: Radiograph of the right ankle 10/31/2024, 6:32 p.m.. ACCESSION NUMBER(S): [id number] ORDERING CLINICIAN: NOAH COLVIN TECHNIQUE: Three views [...] right ankle 10/31/2024, 6:32 p.m.. ACCESSION NUMBER(S): [id number] ORDERING CLINICIAN: NOAH COLVIN TECHNIQUE: Three views [...] Horacio Loera. This study was interpreted at [place], [place]. MACRO: None Signed by: Julián Mendez 10/31/2024 10:25 PM Dictation workstation: [id number] [facility] Work Phone: Radiology Study observation (narrative) [facility] Work Phone: XR Ankle - right 3 ViewsOrde red By: Julián Mendez on 10-31-2024 [facility] Work Phone: XR CHEST 1 VIEWon 10-31-2024 XR CHEST 1 VIEW Interpreted By: Bryson Fam, STUDY: XR CHEST 1 VIEW; 10/31/2024 6:32 pm INDICATION: Signs/Symptoms:preop. COMPARISON: None. ACCESSION NUMBER(S): [id number] ORDERING CLINICIAN: IKE STUART FINDINGS: AP radiograph of the chest was provided. CARDIOMEDIASTINAL SILHOUETTE: Cardiomediastinal silhouette is normal in size and configuration. LUNGS: No focal consolidation, pleural effusion, or pneumothorax. ABDOMEN: No remarkable upper abdominal findings. BONES: No acute osseous changes. IMPRESSION: 1. No evidence of acute cardiopulmonary process. MACRO: None Signed by: Bryson Fam 10/31/2024 6:41 PM Dictation workstation: [id number] [facility] XR Chest Single viewon 10-31 1. No evidence of acute cardiopulmonary process. MACRO: None Signed by: Bryson Fam 10/31/2024 6:41 PM Dictation workstation: [id number] MMODAL Interpreted By: Bryson Fam, STUDY: XR CHEST 1 VIEW; 10/31/2024 6:32 pm INDICATION: Signs/Symptoms:preop. COMPARISON: None. ACCESSION NUMBER(S): [id number] ORDERING CLINICIAN: IKE STUART FINDINGS: AP radiograph of the chest was provided. CARDIOMEDIASTINAL SILHOUETTE: Cardiomediastinal silhouette is normal in size and configuration. LUNGS: No focal consolidation, pleural effusion, or pneumothorax. ABDOMEN: No remarkable upper abdominal findings. BONES: No acute osseous changes. [facility] MMODAL Bryson Fam MD - 10/31/2024 Interpreted By: Bryson Fam, STUDY: XR CHEST 1 VIEW; 10/31/2024 6:32 pm INDICATION: Signs/Symptoms:preop. COMPARISON: None. ACCESSION NUMBER(S): [id number] ORDERING CLINICIAN: IKE STUART FINDINGS: AP radiograph of the chest was provided. CARDIOMEDIASTINAL SILHOUETTE: Cardiomediastinal silhouette is normal in size and configuration. LUNGS: No focal consolidation, pleural effusion, or pneumothorax. ABDOMEN: No remarkable upper abdominal findings. BONES: No acute osseous changes. IMPRESSION: 1. No evidence of acute cardiopulmonary process. MACRO: None Signed by: Bryson Fam 10/31/2024 6:41 PM Dictation workstation: [id number] [facility] Work Phone: [facility] Work Phone: XR KNEE RIGHT 4+ VIEWSon XR KNEE RIGHT 4+ VIEWS Interpreted By: Bryson Fam, STUDY: XR TIBIA FIBULA RIGHT 2 VIEWS; XR ANKLE RIGHT 3+ VIEWS; XR KNEE RIGHT 4+ VIEWS; ; 10/31/2024 6:31 pm; 10/31/2024 6:32 pm INDICATION: Signs/Symptoms:pain after injury; Signs/Symptoms:r/o fx. COMPARISON: None. ACCESSION NUMBER(S): [id number]; [id number]; [id number] ORDERING CLINICIAN: NOAH STUART FINDINGS: Four views [...] Bryson Fam 10/31/2024 6:41 PM Dictation workstation: [id number] [facility] XR TIBIA FIBULA RIGHT 2 VIEW Son 10-31-2024 XR TIBIA FIBULA RIGHT 2 VIEWS Interpreted By: Bryson Fam, STUDY: XR TIBIA FIBULA RIGHT 2 VIEWS; XR ANKLE RIGHT 3+ VIEWS; XR KNEE RIGHT 4+ VIEWS; ; 10/31/2024 6:31 pm; 10/31/2024 6:32 pm INDICATION: Signs/Symptoms:pain after injury; Signs/Symptoms:r/o fx. COMPARISON: None. ACCESSION NUMBER(S): [id number]; [id number]; [id number] ORDERING CLINICIAN: NOAH COLVIN; IKE STUART FINDINGS: [...] Bryson Fam 10/31/2024 6:41 PM Dictation workstation: [id number] [facility] XR Tibia and Fibula - right 2 Viewson 10-31-2024 Radiology Study observation (narrative) [facility] Work Phone: Chest PA and Lateralon 03-27 Chest PA and Lateral [facility] Imaging Services [address] [place] [address]62 Chest PA and Lateral MR#: [id number] Acct: [id number] Name: JAVED REYES Rep #: [id number] : 1995 M 28 From: Naomi dillon MD PCP: Care Physician,No Primary Status: REG ER Study: Chest PA and Lateral Date of Exam: 03/27/24 Exam# [id number] Ordering Dr: German Zhang DO [id number] HISTORY: Cough. TECHNIQUE: XR Chest 2 Views. [...] German Zhang DO; No Primary Care Physician Foreign Languages Professor: Signed Normal [facility] Emergency Department Summary on 03-27-2024 Emergency Department Summary [facility] Medical Records Department [address] [place] [address] Emergency Department Summary 03/27/24 MR#: [id number] Acct: [id number] Name: JAVED REYES Rep #: [id number] : 1995 28 From: German Zhang DO [...] Allergic/Immunologic ED: Denies mouth swelling or urticaria [facility] Medical History (Updated 03/27/24 @ 13:18 by [...] Zithromax. Pa (more content not included)... Normal [facility] M100.677on 03-27-2024 M100.677 Negative Normal [facility] Comment on above: Performed By: #### M 100.677, M100.678 #### [facility] Laboratory [address] [facility] [place], [place], [address] M100.678on 03-27-2024 M100.678 Pending SARS-CoV-2 (COVID 19) Negative INFLUENZA A Negative INFLUENZA B Negative RSV PCR Negative [facility] Comment on above: Performed By: #### M 100.677, M100.678 #### [facility] [address] [place], [place], [address] ED NOTEon 09-02-2023 ED NOTE HNO ID: [id number] Author: FLAQUITO CHOI RN Service: Emergency Medicine [...] September 03, 2023 TIME: 8:32 PM Normal [facility] ED PROV NOTEon 09-02-2023 ED PROV NOTE HNO ID: [id number] Author: LIBERTAD SALES MD Service: Emergency Medicine [...] sinusitis, unspecified location COVID-19 test performed per [facility] [place] policy for suspected COVID community exposure. MDM [...] last few days. 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 Normal [facility] FLUABV+SARS-CoV-2+RSV Pnl Re sp TOMAS+probeon 09-02-2023 FLUABV+SARS-CoV-2+RSV Pnl Resp TOMAS+probe COVID 19 RESULT: Not detected The method used is RT-PCR or an equivalent NAAT method. Reference Range(the expected result in uninfected individuals): Not detected INFLUENZA A PCR: Not detected INFLUENZA B PCR: Not detected RSV PCR: Not detected Normal [facility] Comment on above: Performed By: #### 9 5941-1 #### [facility] CLIA [id number] [address] [place] [address] OF IRINA Vital Signs Date Time Vital Sign Value Performing Clinician Facility 11-06-2024 15:30-0400 Body temperature 97.3 [degF] Noah Colvin MD Work Phone: [facility] 11-06-2024 15:30-0400 Diastolic blood pressure 75 mm[Hg] Noah Colvin MD Work Phone: [facility] 11-06-2024 15:30-0400 Heart rate 70 /min Noah Colvin MD Work Phone: [facility] 11-06-2024 15:30-0400 Respiratory rate 15 /min Noah Colvin MD Work Phone: [facility] 11-06-2024 15:30-0400 SaO2% (BldA) [Mass fraction] 99 % Noah Colvin MD Work Phone: [facility] 11-06-2024 15:30-0400 Systolic blood pressure 109 mm[Hg] Noah Colvin MD Work Phone: [facility] 10-31-2024 19:12-0400 Body temperature 37 Noah Colvin MD Work Phone: [facility] 10-31-2024 19:05-0400 Body temperature 37.0 degrees Celsius [facility] Comment on above: Performed By: #### 53548-9 #### MIRANDA Sims ([id number]) [facility] ([facility]) [address] [place] [address] 10-31-2024 16:43-0400 Body height 172.7 cm Noah Colvin MD Work Phone: [facility] 10-31-2024 16:43-0400 Body mass index (BMI) [Ratio] 39.53 kg/m2 Noah Colvin MD Work Phone: [facility] 10-31-2024 16:43-0400 Body weight 117.94 kg Noah Colvin MD Work Phone: [facility] 02-23-2024 21:49-0400 Blood Pressure Location RAQUEL LOAIZA MD [facility] 02-23-2024 21:49-0400 Blood Pressure Method RAQUEL LOAIZA MD [facility] 02-23-2024 21:49-0400 Body height 172.7 cm RAQUEL LOAIZA MD [facility] 02-23-2024 21:49-0400 Body temperature 96.98 [degF] RAQUEL LOAIZA MD [facility] 02-23-2024 21:49-0400 Body weight 104.5 kg RAQUEL LOAIZA MD [facility] 02-23-2024 21:49-0400 Diastolic Blood Pressure Non-Invasive 78 mm[Hg] RAQUEL LOAIZA MD [facility] 02-23-2024 21:49-0400 Heart rate 98 /min RAQUEL LOAIZA MD [facility] 02-23-2024 21:49-0400 Respiratory rate 16 /min RAQUEL LOAIZA MD [facility] 02-23-2024 21:49-0400 Systolic Blood Pressure Non-Invasive 130 mm[Hg] RAQUEL LOAIZA MD [facility] Encounters Encounter Date Encounter Type Care Provider Facility Start: 11-07-2024 ambulatory Shabnam Meek ty:[facility] Start: 10-31-2024 End: 11-06-2024 Evaluation and management of inpatient Noah Colvin MD Work Phone: [facility] Candy Byrne 8 Comment on above: Displaced comminuted fracture of shaft of right fibula, initial encounter for closed fracture (Primary Dx); Alcohol use; Insomnia, unspecified type; Cigarette smoker; Drug-induced constipation Start: 10-31-2024 End: 10-31-2024 Emergency department patient visit [facility] Start: 03-27-2024 End: 03-27-2024 Emergency department patient visit German Zhang Facility:[facility] Start: 02-23-2024 End: 02-23-2024 Emergency department patient visit RAQUEL LOAIZA MD [facility] Start: 09-02-2023 Emergency department patient visit Facility:[facility] Procedures Date Procedure Procedure Detail Performing [...] instr mnt chem analyzers pr date Edna Arjun Jimmy PA-C Work Phone: Start: 11-01-2024 Ct cervical spine w/ o contrast material Edna Arjun Jimmy PA-C Work Phone: Start: 11-01-2024 CT Thoracic spine WO contrast Edna Arjun Choudhary PA-C Work Phone: Start: 11-01-2024 Ct thorax w/contrast material Edna Arjun Jimmy PA-C Work Phone: Start: 10-31-2024 Blood typing serolog [...] f 2) Zoster Vaccines (1 of 2) [facility] Start: 01-28-2025 Influenza vaccination Influenz a Vaccine (Season Ended) [facility] Start: 11-20-2024 End: 11-20-2024 Patient encounter procedure 11/20/2024 1:00 PM EDT Office Visit [facility] [address] [facility] [address] [place] [address] Toña Castillo PA-C [address] Department of Orthopedics [place] [id number] [facility] Start: 01-29-2024 COVID-19 Vaccine ( season) COVID-19 Vaccine ( season) [facility] Start: 07-13-2020 Pneumococcal Vaccine : Pediatrics and At-Risk Adult Patients (2 of 2 - PCV) Pneumococcal Vaccine: Pediatrics and At-Risk Adult Patients (2 of 2 - PCV) [facility] Start: 2015 DTaP/Tdap/Td Vaccine s (1 - Tdap) DTaP/Tdap/Td Vaccines (1 - Tdap) [facility] Start: 2012 Hepatitis B Vaccines (1 of 3 - 19+ 3-dose series) Hepatitis B Vaccines (1 of 3 - 19+ 3-dose series) [facility] Start: 2011 Hepatitis C screening Hepatitis C Sc eamon [facility] Start: 2006 Varicella vaccination Varicell a Vaccines (1 of 2 - 13+ 2-dose series) [facility] Start: 1994 MMR Vaccines (1 of 1 - Standard series) MMR Vaccines (1 of 1 - Standard series) [facility] Start: 1993 HIV screening HIV Screening [facility] Start: 1993 Lipid panel Lipid Panel [facility] Start: 1993 Yearly Adult Physical Yearly Adult P hysical [facility] Electrocardiogram, 12-lead PRN ACS symptoms Electrocardiogram, 12-lead PRN ACS symptoms ECG Routine As needed until discontinued starting 11/01/2024 [facility] Work Phone: Comment on above: As needed until disc ontinued starting 11/01/2024 End: 11-01-2024 Incentive spirometry Instruct Incentive spirometry Instruct Respiratory Care Routine Once for 1 Occurrences starting 11/01/2024 until 11/01/2024 [facility] Service Area Work Phone: Comment on above: Once for 1 Occurrenc es starting 11/01/2024 until 11/01/2024 Payers Date Payer Category Payer Medicaid MEDICAID [id number] 2024 Medicaid [id number] 2024 Self-pay 1997 Unknown [id number] 1995 Unknown [id number] 1995 Unknown [id number] 1995 Unknown [id number] Unknown [id number] Unknown [id number] Social History Date Type Detail Facility Start: 02-23-2024 Tobacco smoking status Light tobacco smoker (finding) [facility] Start: 1995 Sex Assigned At Male [facility] Start: 11-01-2024 Tobacco smoking status NHIS Smokes tobacco daily [facility] tobacco use [facility] Start: 11-01-2024 Tobacco use and exposure Smokeless tobacco non-user [facility] Work Phone: Start: 11-01-2024 Alcoholic beverage intake Current drinker of alcohol (finding) [facility] Work Phone: Start: 11-01-2024 End: 11-02-2024 History of Social function [facility] Start: 11-01-2024 End: 11-02-2024 [facility] [employer] [facility] Has the [employer], [employer], [employer], or water company threatened to shut off services in your home in past 12Mo Yes [facility] Within the last year , have you been afraid of your partner or ex-partner? No [facility] Work Phone: How often to you hav e a drink containing alcohol? 4 or more times a week [facility] Work Phone: How many standard dr inks containing alcohol do you have on a typical day? 7 to 9 [facility] Work Phone: How often do you hav e 6 or more drinks on 1 occasion? Weekly [facility] Work Phone: How hard is it for y ou to pay for the very basics like food, housing, medical care, and heating Not very hard [facility] (I/We) worried pablo er (my/our) food would run out before (I/we) got money to buy more. Often true [facility] Work Phone: In the past 12 month s, has lack of transportation kept you from medical appointments or from getting medications? No [facility] Work Phone: Start: 10-31-2024 Gender identity Identifies as male gender (finding) [facility] Work Phone: Start: 10-22-2024 End: 11-01-2024 Exposure to SARS-CoV-2 (event) Not sure [facility] Work Phone: Medical Equipment Procedure Code Equipment Code Equipment Origin al Text Equipment Identifier Dates Device, Syndemos is Fixation, [place] Synchfix P5 - [id number] Start: 11-01-2024 Device, Syndemos is Fixation, [place] Synchfix P5 - [id number] Start: 11-01-2024 Plate, Fibula, Distal Lateral, 2.7/3.5mm 137mm 8h, Right - [id number] Start: 11-01-2024 Screw, Cortex 2. 7mm, T8, 20mm - [id number] Start: 11-01-2024 Screw, Cortex 2. 7mm, T8, 16mm - [id number] Start: 11-01-2024 Screw, Cortex 2. 7mm, T8, 22mm - [id number] Start: 11-01-2024 Screw, Cory 3.5 X 14 Ti - [id number] Start: 11-01-2024 Screw, Cory 3.5 X 16 Ti - [id number] Start: 11-01-2024 Screw, Cory 3.5 X 18 Ti - [id number] Start: 11-01-2024 Screw, Locking, 2.7mm, T8, 8mm - [id number] Start: 11-01-2024 Screw, Locking, 2.7mm, T8, 12mm - [id number] Start: 11-01-2024 Screw, Locking, 2.7mm, T8, 16mm - [id number] Start: 11-01-2024 Functional Status Date Assessment Result Facility 11-01-2024 Total score [AUDIT-C] 025 6:42 PM EDT Emily Fernandez RN [facility] Work Phone: 11-01-2024 Patient Health Questionnaire 2 item (PHQ-2) [Reported] [facility] Work Phone: 10-31-2024 [place] - suicide s everity rating scale screener - recent [C-SSRS] [facility] Work Phone: 02-23-2024 Functional Status Assistive Device None A [facility] 02-23-2024 Functional Status Standard Safet y ID band on, Allergy Band on, Call device within reach, Bed in low position, Wheels locked, personal items within reach, Bedside Cart Locked, Visitor at bedside [facility] Work Phone: Mental Status Date Assessment Result Facility 02-23-2024 Mental Status Orientation Oriented x 4 [facility] 02-23-[address] [facility] Clinical Notes 02-23-2024 to 11-06-2024 Enoch Jean-Baptiste RN - 11/06/2024 4:19 PM Nitish Jean-Baptiste RN - 11/06/2024 4:19 PM EDJessica Fitzgerald PA-C - 11/06/2024 1:48 PM EDTCare Plan - Enoch Jean-Baptiste RN - 11/06/2024 11:26 AM EDT Note Date & Type Note Facility 11-06-2024 Nurse Note Patient has been discharged to [facility] via community care ambulance. Vitals stable, all IV's removed and after visit summary reviewed with patient. [facility] 11-06-2024 Nurse Note Patient has been discharged to [facility] via community care ambulance. Vitals stable, all IV's removed and after visit summary reviewed with patient. documented in this encounter [facility] Work Phone: 11-06-2024 Hospital course Narrative [...] cleared for OR by trauma. Admitted to [facility]. Taken to OR on 11/01 for R [...] Center 11/20/2024 1:00 PM Toña Castillo PA-C [id number] Academic Anna Fitzgerald PA-C documented in this encounter [facility] Work Phone: 11-06-2024 Plan of care note The patient's goals for the shift include The clinical goals for the shift include remain free from falls [facility] Work Phone: 11-06-2024 Miscellaneous Notes The patient's goals for the shift include The clinical goals for the shift include remain free from falls The patient's goals for the shift include The clinical goals for the shift include pain control CHW met with patient at bedside, Patient stated that he is interested in community resources in [facility], Patient stated he received out to a facility for rehab [place] near his area after discharge. CHW provided a [facility] resources to assist with food housing financial assistance etc, [employer] for guidances and support, Patient mentioned applying for disability. CHW provided disability resources information, including steps on how to apply online. CHW also provided the rehab center patient is interested contact information. Community Resource Name: Phone Number: Staff Member: Discussed the following topics on behalf of the patient: [] Behavioral Health Assistance [] Case Management [] Impregnator Operator Assistance [] Digital Equity Assistance [] Dental [...] cleared for OR by trauma. Admitted to [facility]. Taken to OR on 11/01 for R [...] will sign off. documented in this encounter [facility] Work Phone: 11-06-2024 History of Presen t illness Narrative Transitional Senior Assistant Manager Note: Patient discussed with medical team (trauma PA), per trauma team patient is medically ready. Discharge dispo: Plan for patient to discharge to SNF. TCC met with patient introduced self and role to discuss discharge plan. TCC informed patient that he was accepted by [facility] and able to discharge to facility. Patient expressed wanting to discharge [facility] stating he wants to be in [facility] near his friends. TCC informed patient there has not been an official acceptance from [facility]. Patient requested for TCC to follow up with facility stating he spoke with facilities admit team who stated facility is able to accept patient. TCC sent updated clinicals to patient's FOC and requested update on acceptance. Yeny Tomas RN BSN Transitional Senior Assistant Manager [facility] - PROGRESS NOTE Patient Name: [...] fixation 11/01 - NWB RLE in [facility] - follow up [address] [...] homeless, can possibly get SNF placement per SW Pt seen and discussed with attending Dr. Navarro Total face to face time spent with patient/family of 20 minutes, with >50% of the time spent discussing plan of care/management, counseling/educating on disease processes, explaining results of diagnostic testing. Anna Fitzgerald PA-C Trauma, Critical Care, Acute Care Surgery Floor: [id number] TSICU: [id number] CHIEF COMPLAINT / OVERNIGHT EVENTS: No acute [...] results, and imaging pertinent for today's encounter. [facility] - PROGRESS NOTE Patient Name: [...] fixation 11/01 - NWB RLE in [facility] - follow up [address] [...] processes, explaining results of diagnostic testing. Anna Fair PA-C Trauma, Critical Care, Acute Care Surgery Floor: [id number] TSICU: [id number] CHIEF COMPLAINT / OVERNIGHT EVENTS: No acute [...] wiggle toes. Dorsi/plantarflexion 5/5 left lower extremity. Granulating Blender strength 5/5 bilaterally. sensation intact throughout all [...] PT/OT. No return call or note in Epic regarding referral to [facility]. Pt was updated regarding this agency for those who need medical care and in a housing crisis. Objective Physical Exam Assessment & Plan SW will continue to follow pt for a safe discharge. SW will update Trauma Team regarding pt's pain and feelings about needing PT. CHRISTINE VARGAS [facility] - PROGRESS NOTE Patient Name: [...] fixation 11/01 - NWB RLE in [facility] - follow up [address] Ochenjele - PT/OT -> no PT or OT [...] Trauma, Critical Care, Acute Care Surgery Floor: 87754 TSICU: [id number] CHIEF COMPLAINT / OVERNIGHT EVENTS: No acute [...] lower extremity. Dorsi/plantarflexion 5/5 left lower extremity. Granulating Blender strength 5/5 bilaterally. sensation intact throughout all [...] were you homeless or living in a [place] (including now)? Y Transportation Needs In the past 12 months, has lack of transportation kept you from medical appointments or from getting medications? no In the past 12 months, has lack of transportation kept you from meetings, work, or from getting things needed for daily living? No Patient Choice Provider Choice list and [facility] website (https://medicare.gov/care-comp are#search) for post-acute Quality and Resource Measure Data were provided and reviewed with: Patient PCP: NONE DME: none previously Pharmacy: none CHECKER/STOCKER spoke with the patient on this date. Patient is homeless and hopping from couch to couch. Patient came in due to a displaced right fibula fracture. PT saw and recommended no needs. PT explained that patient is nonweight bearing to the right leg but is doing well on the walker. CHECKER/STOCKER explained that this CHECKER/STOCKER can order a walker for the patient. Patient explained that hed be interested in going to a physical rehab at discharge. CHECKER/STOCKER explained that she could send out some referrals but that she cannot guarantee he will be accepted due to his age and the fact he doesn't have PT or OT needs. CHECKER/STOCKER texted patient an [place] and SNF list. Patient also agreed to blanket referral. Patient confirmed he would find a place to say if he cannot go to SNF or [place]. Patient tested positive for cocaine and cannibis. CHECKER/STOCKER spoke with him about it. 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 CHECKER/STOCKER offered substance abuse resources or a referral to [facility], Patient explained that he doesn't not think he needs any resources and that he will just stop cold turkey. CHECKER/STOCKER will continue to follow ADD 11/02/24 2:59PM CHECKER/STOCKER attempted to call patient again to discuss alternate discharge plans besides SNF/AR since patient doesn't have therapy needs. CHECKER/STOCKER was unable to reach patient via phone. CHECKER/STOCKER spoke with patient's PA about making a [facility] referral for the patient. CHECKER/STOCKER will continue to follow LISA Mims, LAUREN-S Occupational Therapy Evaluation Patient Name: Javed Reyes Today's Date: 11/02/2024 Room: [address] [place] [address] Time Calculation Start Time: 930 Stop Time: [...] Adaptive Equipment: None Prior Function: Level of [place]: Independent with ADLs and functional transfers, Independent [...] Touch: No apparent deficits Strength: Strength Comments: B UEs WFL Perception: Inattention/Neglect: Appears intact Coordination: Movements are Fluid and Coordinated: Yes Hand Function: Hand Function Gross Grasp: Functional Coordination: Functional Extremities: RUE RUE : Within Functional Limits, LUE LUE: Within Functional Limits, , and Outcome Measures: [facility] Daily Activity Putting on and taking off [...] 10:35 AM Moshe Mclain OT Rehab Office: [phone] Physical Therapy Physical Therapy Evaluation Patient Name: Javed Reyes Department: [place] [id number] Room: [address] [place] [address] Today's Date: 11/02/2024 Time Calculation Start Time: 821 Stop Time: 08 Time Calculation (min): 13 min Assessment/Plan PT [...] PT needs though patient noting housing insecurity. SW made are. End of Session Patient Position: [...] Prior Function Per Pt/Caregiver Report Level of [place]: Independent with ADLs and functional transfers ADL [...] compensate.) Comments/Distance (ft) 1: 20ft Outcome Measures: [facility] Basic Mobility Turning from your back to [...] for closed fracture. Pharmacy reviewed the patient's jwrdj-lt-cncgfdwpn medications and allergies for accuracy. Medications ADDED: None Medications CHANGED: None Medications REMOVED: None The list below reflects the updated ETIQUETTE TEACHER list. None The list below reflects the updated allergy list. Please review each documented allergy for additional clarification and justification. Allergies Reviewed by Anupam Ellis PharmD on 11/02/2024 No Known Allergies Patient accepts M2B at discharge. Sources: OARRS Pharmacy dispense history Patient Interview Good historian Care Everywhere Additional Comments: No recent dispense history per OARRS report No recent pharmacy dispense history No recent chart review notes Patient denied taking any prescription medications, vitamins, supplements or OTCs ETIQUETTE TEACHER Anupam Ellis PharmD Transitions of Care Pharmacist 11/02/24 Secure Chat preferred If no response call [phone] or [place] [employer] [facility] - PROGRESS NOTE Patient Name: [...] fixation 11/01 - NWB RLE in [facility] - follow up [address] [...] Trauma, Critical Care, Acute Care Surgery Floor: 37433 TSICU: [id number] CHIEF COMPLAINT / OVERNIGHT EVENTS: No acute [...] 2/5 strength. Dorsi/plantarflexion 5/5 left lower extremity. Granulating Blender strength 5/5 bilaterally. sensation intact throughout all [...] results, and imaging pertinent for today's encounter. [facility] - PROGRESS NOTE Patient Name: [...] during my rounds. documented in this encounter [facility] Work Phone: 11-05-2024 Plan of care note The patient's goals for the shift include The clinical goals for the shift include pain control [facility] 11-05-2024 Plan of care note CHW met with patient at bedside, Patient stated that he is interested in community resources in [facility], Patient stated he received out to a facility for rehab [place] near his area after discharge. CHW provided a [facility] resources to assist with food housing financial assistance etc, [employer] for guidances and support, Patient mentioned applying for disability. CHW provided disability resources information, including steps on how to apply online. CHW also provided the rehab center patient is interested contact information. Community Resource Name: Phone Number: Staff Member: Discussed the following topics on behalf of the patient: [] Behavioral Health Assistance [] Case Management [] Impregnator Operator Assistance [] Digital Equity Assistance [] Dental [...] here] Next Steps: MARIA DE JESUS Foster [facility] 11-05-2024 Plan of care note The [...] appropriate for maintaining nutritional needs Outcome: Progressing [facility] 11-02-2024 Plan of care note The patient's goals for the shift include The clinical goals for the shift include Pt pain will be contolled [facility] 11-02-2024 Hospital Discharg e instructions Ivelisse [...] orthopaedic clinic appointment line phone number is [phone]. Please do not delay in calling to [...] become infected. Alternatively, you may blow a department of sociology chair, on the cool air setting, in [...] an emergent evaluation. documented in this encounter [facility] Work Phone: 11-02-2024 Plan of care [...] line(s)/device(s) Turn/reposition every 2 hours/use positioning/transfer devices [facility] 11-01-2024 Hospital Note Formatting of t [...] cleared for OR by trauma. Admitted to [facility]. Taken to OR on 11/01 for R ankle ORIF. Patient to follow up outpatient in [address] Stuart. PT/OT worked with patient while admitted, pt discharged to SNF at time of discharge. Pt sent with scripts and meds continued, follow up appointments placed. Pain well controlled, eating and drinking well. Pt verbalized understanding of discharge instructions. [facility] Work Phone: 11-01-2024 demand generation manager Note Neurology Final Assessment and Plan: [...] provided per primary. Neurology will sign off. [facility] Work Phone: 11-01-2024 Consult note Formatting [...] friend was having surgery at a hospital [place] and he went to visit afterwards he [...] was a few seconds to minutes the management expert was present and at his side with [...] given rapid COORDINATION: In both upper extremities, crrbbf-giml-juxdne was intact without dysmetria or overshoot. GAIT: [...] Horacio Loera. This study was interpreted at [place], [place]. MACRO: None. Signed by: Julián Mendez 11/01/2024 1:14 AM Dictation workstation: [id number] CT lumbar spine retrospective reconstruction protocol Result Date: 11/01/2024 CT CHEST/ABDOMEN/PELVIS: *No acute traumatic injury. CT THORACIC AND LUMBAR SPINE: *No acute fracture or traumatic malalignment. I personally reviewed the images/study and I agree with the findings as stated by resident Horacio Loera. This study was interpreted at [place], [place]. MACRO: None. Signed by: Julián Mendez 11/01/2024 1:14 AM Dictation workstation: [id number] CT thoracic spine retrospective reconstruction protocol Result Date: 11/01/2024 CT CHEST/ABDOMEN/PELVIS: *No acute traumatic injury. CT THORACIC AND LUMBAR SPINE: *No acute fracture or traumatic malalignment. I personally reviewed the images/study and I agree with the findings as stated by resident Horacio Loera. This study was interpreted at [place], [place]. MACRO: None. Signed by: Julián Mendez 11/01/2024 1:14 AM Dictation workstation: [id number] CT cervical spine wo IV contrast Result Date: 11/01/2024 1. No acute fracture or traumatic malalignment of the cervical spine. I personally reviewed the images/study and resident's interpretation and I agree with the findings as stated by Anisa Mena MD (resident radiologist). This study was analyzed and interpreted at [place], [place]. MACRO: None. Signed by: Julián Mendez 11/01/2024 1:04 AM Dictation workstation: [id number] CT ankle right wo IV contrast Result [...] Horacio Loera. This study was interpreted at [place], [place]. MACRO: None Signed by: Julián Mendez 10/31/2024 11:31 PM Dictation workstation: [id number] CT head wo IV contrast Result Date: 10/31/2024 CT HEAD: *No acute intracranial abnormality or calvarial fracture. I personally reviewed the images/study and I agree with the findings as stated by resident Horacio Loera. This study was interpreted at [place], [place]. MACRO: None. Signed by: Julián Mendez 10/31/2024 10:31 PM Dictation workstation: [id number] XR ankle right 3+ views Result Date: 10/31/2024 *Comminuted fibula fracture with similar alignment compared to prior imaging. Previously described medial malleolus avulsion fracture is not well visualized, likely obscured by overlying cast material. I personally reviewed the images/study and I agree with the findings as stated by resident Horacio Loera. This study was interpreted at [place], [place]. MACRO: None Signed by: Julián Mendez 10/31/2024 10:25 PM Dictation workstation: [id number] XR chest 1 view Result Date: 10/31/2024 1. No evidence of acute cardiopulmonary process. MACRO: None Signed by: Bryson Fam 10/31/2024 6:41 PM Dictation workstation: [id number] XR ankle right 3+ views Result Date: 10/31/2024 Comminuted distal fibular fracture with additional medial malleolar avulsion injury. Suspected medial clear space widening. No evidence of syndesmotic widening. MACRO: None Signed by: Bryson Fam 10/31/2024 6:41 PM Dictation workstation: [id number] XR tibia fibula right 2 views Result Date: 10/31/2024 Comminuted distal fibular fracture with additional medial malleolar avulsion injury. Suspected medial clear space widening. No evidence of syndesmotic widening. MACRO: None Signed by: Bryson Fam 10/31/2024 6:41 PM Dictation workstation: [id number] XR knee right 4+ views Result Date: 10/31/2024 Comminuted distal fibular fracture with additional medial malleolar avulsion injury. Suspected medial clear space widening. No evidence of syndesmotic widening. MACRO: None Signed by: Bryson Fam 10/31/2024 6:41 PM Dictation workstation: [id number] Cardiology, Vascular, and Other Imaging ECG 12 [...] note dated 11/01 for our detailed recommendations. [facility] Work Phone: 11-01-2024 Consult note Formatting [...] friend was having [place] and he went to visit afterwards he stopped the [employer] for lunch and had 2 beers which [...] was a few seconds to minutes the management expert was present and at his side with [...] given rapid COORDINATION: In both upper extremities, phketz-prnt-tgpxkf was intact without dysmetria or overshoot. GAIT: [...] Horacio Loera. This study was interpreted at [place], [place]. MACRO: None. Signed by: Julián Mendez 11/01/2024 1:14 AM Dictation workstation: [id number] CT lumbar spine retrospective reconstruction protocol Result Date: 11/01/2024 CT CHEST/ABDOMEN/PELVIS: *No acute traumatic injury. CT THORACIC AND LUMBAR SPINE: *No acute fracture or traumatic malalignment. I personally reviewed the images/study and I agree with the findings as stated by resident Horacio Loera. This study was interpreted at [place], [place]. MACRO: None. Signed by: Julián Mendez 11/01/2024 1:14 AM Dictation workstation: [id number] CT thoracic spine retrospective reconstruction protocol Result Date: 11/01/2024 CT CHEST/ABDOMEN/PELVIS: *No acute traumatic injury. CT THORACIC AND LUMBAR SPINE: *No acute fracture or traumatic malalignment. I personally reviewed the images/study and I agree with the findings as stated by resident Horacio Loera. This study was interpreted at [place], [place]. MACRO: None. Signed by: Julián Mendez 11/01/2024 1:14 AM Dictation workstation: [id number] CT cervical spine wo IV contrast Result Date: 11/01/2024 1. No acute fracture or traumatic malalignment of the cervical spine. I personally reviewed the images/study and resident's interpretation and I agree with the findings as stated by Anisa Mena MD (resident radiologist). This study was analyzed and interpreted at [place], [place]. MACRO: None. Signed by: Julián Mendez 11/01/2024 1:04 AM Dictation workstation: [id number] CT ankle right wo IV contrast Result [...] Horacio Loera. This study was interpreted at [place], [place]. MACRO: None Signed by: Julián Mendez 10/31/2024 11:31 PM Dictation workstation: [id number] CT head wo IV contrast Result Date: 10/31/2024 CT HEAD: *No acute intracranial abnormality or calvarial fracture. I personally reviewed the images/study and I agree with the findings as stated by resident Horacio Loera. This study was interpreted at [place], [place]. MACRO: None. Signed by: Julián Mendez 10/31/2024 10:31 PM Dictation workstation: [id number] XR ankle right 3+ views Result Date: 10/31/2024 *Comminuted fibula fracture with similar alignment compared to prior imaging. Previously described medial malleolus avulsion fracture is not well visualized, likely obscured by overlying cast material. I personally reviewed the images/study and I agree with the findings as stated by resident Horacio Loera. This study was interpreted at [place], [place]. MACRO: None Signed by: Julián Mendez 10/31/2024 10:25 PM Dictation workstation: [id number] XR chest 1 view Result Date: 10/31/2024 1. No evidence of acute cardiopulmonary process. MACRO: None Signed by: [place]son Fam 10/31/2024 6:41 PM Dictation workstation: [id number] XR ankle right 3+ views Result Date: 10/31/2024 Comminuted distal fibular fracture with additional medial malleolar avulsion injury. Suspected medial clear space widening. No evidence of syndesmotic widening. MACRO: None Signed by: Bryson Fam 10/31/2024 6:41 PM Dictation workstation: [id number] XR tibia fibula right 2 views Result Date: 10/31/2024 Comminuted distal fibular fracture with additional medial malleolar avulsion injury. Suspected medial clear space widening. No evidence of syndesmotic widening. MACRO: None Signed by: Bryson aFm 10/31/2024 6:41 PM Dictation workstation: [id number] XR knee right 4+ views Result Date: 10/31/2024 Comminuted distal fibular fracture with additional medial malleolar avulsion injury. Suspected medial clear space widening. No evidence of syndesmotic widening. MACRO: None Signed by: Bryson Fam 10/31/2024 6:41 PM Dictation workstation: [id number] Cardiology, Vascular, and Other Imaging ECG 12 lead Result Date: 10/31/2024 Normal sinus rhythm Nonspecific ST abnormality Abnormal ECG No previous ECGs available See ED provider note for full interpretation and clinical correlation Confirmed by Linda Rich ([id number]) on 10/31/2024 7:19:36 PM Assessment/Plan # Acute [...] our detailed recommendations. documented in this encounter [facility] Work Phone: 10-31-2024 History and physical note [facility] - HISTORY AND PHYSICAL / [...] provider name, time): ortho Dispo: Admit to [facility] for PT/OT Pt seen and discussed with attending Dr. Castellano Total face to face time spent with patient/family of 30 minutes, with >50% of the time spent discussing plan of care/management, counseling/educating on disease processes, explaining results of diagnostic testing. I have reviewed all medications, laboratory results, and imaging pertinent for today's encounter. Edna Choudhary PA-C Trauma, Critical Care, Acute Care Surgery Floor: [id number] TSICU: [id number] ======== PAST MEDICAL HISTORY: PMH: denies, one [...] Left Pupil: round and reactive Motor Strength Granulating Blender strength: 5/5 on the right 5/5 on [...] surgery. Appreciate neurology consult. Ganga Castellano DO [facility] Work Phone: 10-31-2024 History and physical note [facility] - HISTORY AND PHYSICAL / [...] provider name, time): ortho Dispo: Admit to [facility] for PT/OT Pt seen and discussed with attending Dr. Castellano Total face to face time spent with patient/family of 30 minutes, with >50% of the time spent discussing plan of care/management, counseling/educating on disease processes, explaining results of diagnostic testing. I have reviewed all medications, laboratory results, and imaging pertinent for today's encounter. Edna Choudhary PA-C Trauma, Critical Care, Acute Care Surgery Floor: [id number] TSICU: [id number] ======== PAST MEDICAL HISTORY: PMH: denies, one [...] the right; 2+ on the left. Disability [place] Coma Score Eye:4 Verbal:5 Motor:6 15 Pupils Right Pupil: round and reactive Left Pupil: round and reactive Motor Strength Granulating Blender strength: 5/5 on the right 5/5 on [...] Ganga Castellano DO documented in this encounter [facility] Work Phone: 10-31-2024 Emergency department Note [...] the patient's care: As documented above in [facility] The patient was discussed with the following consultants/services: None Care Considerations: As documented above in [facility] ED Course: ED Course as of 11/06/24442Oct 31, 20241915 BLOOD GAS VENOUS FULL PANEL(!) [...] [RS] ED Course User Index [RS] Noah Betancur, DO Diagnoses as of 11/06/24442 Displaced comminuted [...] with the documented findings. Noah Colvin MD 11/06/24 0443 Pt states that he possibly had a [...] right ankle pain documented in this encounter [facility] Work Phone: 10-31-2024 Physician Emergency department [...] Castellano. Neurology has been consulted for seizures. [place] Coma Scale Score: 15 Differential diagnoses considered [...] None Care Considerations: As documented above in [facility] ED Course: ED Course as of 11/06/24442Oct 31, 20241915 BLOOD GAS VENOUS FULL PANEL(!) [...] [RS] ED Course User Index [RS] Noah Betancur, DO Diagnoses as of 11/06/24442 Displaced comminuted [...] the documented findings. Noah Colvin MD 11/06/[address] [facility] Work Phone: 10-31-2024 Emergency department Triage [...] pt is also c/o right ankle pain [facility] Work Phone: 02-24-2024 Hospital Discharg e [...] until the rash is all gone. Use kumy-agr-edacnop antifungal powders or sprays on your feet [...] Pus draining from cracks in the skin [id number] [employer]. [address] [place] [address]. All rights reserved. This information is not [...] Boil returns when you are at home [phone] [employer]. [address] [place] [address]. All rights reserved. This information is not intended as a substitute for professional medical care. Always follow your healthcare professional's instructions. Follow Up Care 02/23/2024 21:43:59 With:Call KRISTA Rodriguez Pt. Refferral [phone] Address:Unknown When:2-4 days [facility] 02-23-2024 Note Discharge Instructions Thank you for allowing [facility] to assist you with your healthcare needs. The following is important discharge information regarding your hospital visit. What to Do Next Instructions from Your Care Team No qualifying data available. Post Acute Orders No qualifying data available. You Need to Schedule the Following Appointments Follow Up with Call KRISTA Rodriguez Pt. Refferral [phone] When:Within 2-4 days Allergies Cats Dust Medications [...] may report side effects to FDA at 3-808-ADI-1243. What other drugs will affect butenafine topical? Medicine used on the skin is not likely to be affected by other drugs you use, but many drugs can interact. Tell your doctor about all your current medicines, including prescription and jdan-ghg-uezdlcu medicines, vitamins, and herbal products. Where can I get more information? Your doctor or pharmacist can provide more information about butenafine topical. Remember, keep this and all other medicines out of the reach of children, never share your medicines with others, and use this medication only for the indication prescribed. Every effort has been made to ensure that the information provided by [employer]') is accurate, up-to-date, and complete, but no guarantee is made to that effect. Drug information contained herein may be time sensitive. [employer] information has been compiled for use by healthcare practitioners and consumers in the [place] and therefore [employer] does not warrant that uses outside of the [place] are appropriate, unless specifically indicated otherwise. [employer] drug information does not endorse drugs, diagnose patients or recommend therapy. [employer] drug information is an informational resource designed [...] effective or appropriate for any given patient. [employer] does not assume any responsibility for any aspect of healthcare administered with the aid of information [employer] provides. The information contained herein is not intended to cover all possible uses, directions, precautions, warnings, drug interactions, allergic reactions, or adverse effects. If you have questions about the drugs you are taking, check with your doctor, nurse or pharmacist. Copyright 2754-8835 [employer] Version: 5.01. Revision Date: 08/04/2023. cephalexin (sef [...] may report side effects to FDA at 1-722-QQA-3498. What other drugs will affect cephalexin? Tell your doctor about all your other medicines, especially: metformin; or probenecid. This list is not complete. Other drugs may affect cephalexin, including prescription and pjmr-ayl-gsvtpcn medicines, vitamins, and herbal products. Not all [...] to ensure that the information provided by [employer] is accurate, up-to-date, and complete, but no guarantee is made to that effect. Drug information contained herein may be time sensitive. [employer] information has been compiled for use by healthcare practitioners and consumers in the [place] and therefore [employer] does not warrant that uses outside of the [place] are appropriate, unless specifically indicated otherwise. [employer] drug information does not endorse drugs, diagnose patients or recommend therapy. [employer] drug information is an informational resource designed [...] effective or appropriate for any given patient. [facility] does not assume any responsibility for any aspect of healthcare administered with the aid of information [facility] provides. The information contained herein is not intended to cover all possible uses, directions, precautions, warnings, drug interactions, allergic reactions, or adverse effects. If you have questions about the drugs you are taking, check with your doctor, nurse or pharmacist. Copyright 8617-5865 [facility] [employer]. Version: 04.29. Revision Date: 12/29/2022. doxycycline (oral/injection) (DOX mauricio VERASEdgar demetrius) Acticlate, Adoxa, Alodox, Avidoxy, Doryx, Doryx MPC, Lymepak, Mondoxyne NL, Monodox, Morgidox, Morgidox 4a499lt, Morgidox 0v767bt, Okebo, Oracea, Targadox, Vibramycin, Vibramycin Monohydrate What [...] bone and tooth development in a nursing infant. Do not breastfeed while you are taking doxycycline. Doxycycline can cause permanent yellowing or graying of the teeth in children younger than 8 years old. Children should use doxycycline only in cases of severe or life-threatening conditions such as anthrax or [place] spotted fever. The benefit of treating a [...] may report side effects to FDA at 8-296-JJP-8148. What other drugs will affect doxycycline? Sometimes it is not safe to use certain medications at the same time. Some drugs can affect your blood levels of other drugs you take, which may increase side effects or make the medications less effective. Other drugs may affect doxycycline, including prescription and lbcp-uzd-kyiguzx medicines, vitamins, and herbal products. Tell your [...] to ensure that the information provided by [employer] is accurate, up-to-date, and complete, but no guarantee is made to that effect. Drug information contained herein may be time sensitive. [employer] information has been compiled for use by healthcare practitioners and consumers in the [place] and therefore [employer] does not warrant that uses outside of the [place] are appropriate, unless specifically indicated otherwise. [employer] drug information does not endorse drugs, diagnose patients or recommend therapy. [employer] drug information is an informational resource designed [...] effective or appropriate for any given patient. [facility] does not assume any responsibility for any aspect of healthcare administered with the aid of information [facility] provides. The information contained herein is not intended to cover all possible uses, directions, precautions, warnings, drug interactions, allergic reactions, or adverse effects. If you have questions about the drugs you are taking, check with your doctor, nurse or pharmacist. Copyright 7308-4219 [facility] [employer]. Version: 25.. Revision Date: 02/02/2023. Education Materials [...] until the rash is all gone. Use mpkj-nwe-ziyptac antifungal powders or sprays on your feet [...] Pus draining from cracks in the skin 8803-8769 [employer]. [address] [place] [address]. All rights reserved. This information is not [...] Boil returns when you are at home 3951-4503 [employer]. [address] [place], [place] [address]. All rights reserved. This information is not intended as a substitute for professional medical care. Always follow your healthcare professional's instructions. Additional Information VACCINATE! IT SAVES LIVES! Members of the community who have not yet received the COVID-19 vaccine and would like to receive it can visit one of [facility] vaccine clinics. There are many vaccine clinic locations within the [facility]. For locations and available times, please visit www.[email or web address] .gov/. It is important to note that some COVID mobile vaccine clinics are held outdoors and may be canceled in rainy or stormy conditions. To learn more about pediatric vaccinations (ages 5-11), we invite you to visit the [facility] webpage. https://www.[email or web address]/ pages/2852-Mafjq-Fueyzkekygi-Fr vuyjszkv-Ejksd-Ihcxwbner.html To learn more about the COVID-19 vaccine, we invite you to visit the CDC website for a list of frequently asked questions. https://www.cdc.gov/coronavirus /2019-ncov/vaccines/faq.html [facility] Patient Portal Access Instructions: Stay connected with your healthcare team and access your personal medical information anytime with the [facility] Patient Portal. If you would like a full copy of your medical records please contact the [facility] Medical Records Department Tuesday through Tuesday between 8a.m. and 4:30p.m. Please follow the directions below to access the portal: 1.Access the email account you provided upon registration to the [facility].2.Look for an invitation email from [facility].3.Open the email and access the invitation link: Accept Invitation to [facility].Fill in the required collier to create your account. Sign into [email or web address] with your username and password that you [...] you will allow to register on the [facility] Patient Portal for access to your information. You can also access the [facility] Patient Portal on the [employer]. Simply click on Health Records under Health Data and then click on the [employer] logo. HOW TO SAFELY DISPOSE OF PRESCRIPTION [...] Call your local pharmacy or go to [email or web address]/[email or web address] to find one close to you.3.Make use of household items: Use cat litter or old coffee grounds to dispose medications if other options are not available. Mix your drugs with these household products, seal them in an airtight container and throw it into the garbage. Call [facility]: [phone] to be sure your drugs can be [...] aware that I should contact my doctor. Patient/Procedural Nurse Signature: Date/Time: Relationship to Patient: Witness Name/Signature: Date/Time: [facility] Evaluation + Plan note No data available for this section [facility] Evaluation note Diagnosis Displaced comminuted fracture of [...] Obesity Obesity, unspecified documented in this encounter [facility] Work Phone: Summary Purpose Family History No Family History Records Found No data available for this section No Family History Records FoundNo Family History Records FoundNo Family History Records Found Advance Directives No Advanced Directives Records Found Date Activated Date Inactivated Comments 11/01/2024 6:35 PM Question Answer Comments Plan of Care: Code Status Discussion Not Compl eted Decision Maker: Provider Rationale: Patient condition does not warra nt discussion Additional Source Comments (unrecognized sect ion and content) No Status Records FoundNo Status Records FoundNo Status Records FoundNo Status Records Found INFORMATION SOURCE (unrecogn ized section and content) DATE CREATED AUTHOR 09/03/2023 [facility] DATE CREATED AUTHOR AUTHOR'S ORGANIZ ATION 02/29/2024 [facility] DATE CREATED AUTHOR AUTHOR'S ORGANIZ ATION 11/07/2024 [facility] DATE CREATED AUTHOR AUTHOR'S ORGANIZ ATION 11/09/2024 [facility] Reason for Visit (unrecogniz ed section and content) Reason Comments Syncope Ankle Pain Specialty Diagnoses / Procedures Referred By Toby t Referred To Contact Diagnoses Displaced comminuted fracture of shaft of right fibula, initial [place] [address] [place] [address] Phone: tel: fax: [facility] [address] [place] [address] Phone: tel: fax: Referral ID Status Reason Start Date Expiration Date Visits Re quested Visits Authorized [id number] 1 1 Scheduled Active and Recently Administ ered [...] hours, First dose on Tue11/01/24 at 1900 0624 (Given - Provider: Do Varela RN)1809 (Given - Provider: Uziel Ibarra RN) 0557 (Given - Provider: Nika Morrell RN)1835 (Given - Provider: Uziel Ibarra RN) 0830 (Given - Provider: Enoch Jean-Baptiste RN - Comment: rn work flow)1900 (Due) folic acid (Folvite) tablet 1 mg 1 mg, oral, Daily, First dose on Tue11/01/24 at 0900 0938 (Given - Provider: Uziel Ibarra RN) 0823 (Given - Provider: Enoch Jean-Baptiste RN) 0830 (Given - Provider: Enoch Jean-Baptiste RN) methocarbamol (Robaxin) tablet 500 mg 500 mg, oral, Every 6 hours scheduled, First dose on Tue11/05/24 at 1345 1347 (Given - Provider: Uziel [...] Jean-Baptiste RN) 0830 (Given - Provider: Enoch Jean-Baptiste, RIKY) nicotine (Nicoderm CQ) 14 mg/24 hr patch 1 patch 1 patch, transdermal, Administer over 24 Hours, Daily, First dose on 11/03/24 at 1245 0830 (Medication Removed - Provider: Uziel Ibarra RN)0938 (Medication Applied - Provider: Uziel Ibarra RN) 0824 (Medication Applied - Provider: Enoch Jean-Baptiste RN) 0827 (Medication Removed - Provider: Enoch Jean-Baptiste, RIKY)0830 (Medication Applied - Provider: Enoch Jean-Baptiste, RIKY) PHENobarbital (Luminal) tablet 32.4 mg (COMPLETED)(Linked Group 1) 32.4 mg, oral, 3 times daily, First dose on 11/04/24 at 0900, For 6 doses, Days 3 and 4 0938 (Given - Provider: Uziel Ibarra RN)1810 (Given - Provider: Uziel Ibarra RN)2303 (Given - Provider: Uziel Ibarra RN) 0826 (Given - Provider: Enoch Jean-Baptiste, RIKY)1709 (Given - Provider: Uziel Ibarra RN)2119 (Given - Provider: Meghann Johnson RN) polyethylene glycol (Glycolax, Miralax) packet 17 g 17 g, oral, Daily, First dose on Zuly 11/01/24 at 1900, Bowel Regimen - for prevention of constipation. 0937 (Not Given - Provider: Uziel Ibarra RN - Reason: Patient/family refused - Comment: bm this morning) 0824 (Given - Provider: Enoch Jean-Baptiste RN) 0830 (Given - Provider: Enoch Jean-Baptiste, RIKY) thiamine (Vitamin B-1) tablet 100 mg 100 mg, oral, Daily, First dose on 11/04/24 at 0900, To start after three days of IV 0938 (Given - Provider: Uziel Ibarra RN) 0823 (Given - Provider: Enoch Jean-Baptiste, RIKY) 0830 (Given - Provider: Enoch Jean-Baptiste, RIKY) PRN Medication Order 11/04/2024 11/05/2024 11/06/2024 HYDROmorphone (Dilaudid) injection 0.2 mg (CANCELED) 0.2 mg, intravenous, Every 2 hour PRN, pain breakthrough, Starting on Zuly 11/01/24 at 1835 2112 (Given - Provider: Uziel Ibarra, RIKY) melatonin tablet 3 mg 3 mg, oral, [...] patient preference? 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 [facility]. provides no warranty or guarantee of the accuracy or completeness of information in this document.
--- OUTSIDE RECORDS SUMMARY | 2024-11-12 04:43 | XMS RPT_ITS | CCD ---
Author Organization [facility] Inform ion Partnership [facility] Care Team Providers Care Rug Inspector Name Role Phone PHYSICIAN, NONE Primary Care [...] Propensity to adverse reactions (disorder) 9 [facility] Repository (1 source) Dust; Translations: [DUST] Propensity to adverse reactions (disorder) 9 [facility] Medications Current Medications Medication Drug [...] HR >110bpm, diaphoresis, tremors, hallucinations), Starting on Zuyl 11/01/24 at 0412 Start: 11-01-2024 End: 11-01-2024 165.75 mg (rounded from 164. 16 mg = 2.4 mg/kg 68.4 kg [place] weight), intramuscular, Once, On Zuly 11/01/24 at 0415, For 1 dose polyethylene glycol 3350 06849 mg powder for oral solution (2 sources) Osmotic Laxative Start: 11-07-2024 polyethylene glycol (Glycolax, Miralax) 17 gram packet Indications: Drug-induced constipation Take 17 g by mouth once daily. 11/07/2024 Active Start: 11-01-2024 17 g, oral, Da alexandrea, First dose on [facility] 11/01/24 at 1900, Bowel Regimen - [...] 100 mg, intravenous, Daily, First dose on [facility] 11/01/24 at 0900, For 3 doses, [...] hour 100 mL/hr, intravenous, Continuous, Starting on [facility] 11/01/24 at 1430, For 1 day, Recovery (only) Start: 11-01-2024 End: 11-01-2024 1,000 mL, intravenous, at 99 9 mL/hr, Administer over 1 Hours, Once, On [facility] 11/01/24 at 1055, For 1 dose ceFAZolin 2000 mg injection (1 source) Cephalosporin Antibacterial Start: 11-01-2024 End: 11-02-2024 take 2 g intravenously every eight hours 2 g, intravenous, Administer over 30 Minutes, Every 8 hours, First dose on [facility] 11/01/24 at 2100, For 2 doses, [...] width (RBC) [Ratio] 12.3 % Normal 11.6-14.6 [facility] Comment on above: Order Comment: 106 Performed By: #### L 100.0500, L500.4050 #### [facility] [address] [place], [address] Hematocrit (Bld) [Volume fraction] 43.5 % Normal 40-54 [facility] Comment on above: Order Comment: 106 Performed By: #### L 100.0500, L500.4050 #### [facility] [address] [place], [address] Hemoglobin (Bld) [Mass/Vol] 14.6 g/dL Normal 13.0-16.5 [facility] Comment on above: Order Comment: 106 Performed By: #### L 100.0500, L500.4050 #### [facility] [address] [facility] [place], [address] MCH (RBC) [Entitic mass] 30.0 pg Normal 27.0-32.0 [facility] Comment on above: Order Comment: 106 Performed By: #### L 100.0500, L500.4050 #### [facility] [address] [place], [address] MCHC (RBC) [Mass/Vol] 33.6 g/dL Normal 32-36 [facility] Comment on above: Order Comment: 106 Performed By: #### L 100.0500, L500.4050 #### [facility] [address] [place], [address] MCV (RBC) [Entitic vol] 89.3 fL Normal 80-94 [facility] Comment on above: Order Comment: 106 Performed By: #### L 100.0500, L500.4050 #### [facility] [address] [place], [address] Platelet mean volume (Bld) [Entitic vol] 10.8 fL Normal 6.2-12.0 [facility] Comment on above: Order Comment: 106 Performed By: #### L 100.0500, L500.4050 #### [facility] [address] [place], [address] Platelets (Bld) [#/Vol] 227 10*3/uL Normal 150-450 [facility] Comment on above: Order Comment: 106 Performed By: #### L 100.0500, L500.4050 #### [facility] [address] [place], [address] RBC (Bld) [#/Vol] 4.87 10*6/uL Normal 4.6-6.2 [facility] Comment on above: Order Comment: 106 Performed By: #### L 100.0500, L500.4050 #### [facility] [address] [place], [address] RDW SD 40.0 fl Normal 35.1-43.9 [facility] Comment on above: Order Comment: 106 Performed By: #### L 100.0500, L500.4050 #### [facility] [address] [place], [address] WBC (Bld) [#/Vol] 8.1 10*3/uL Normal 4.4-11.0 [facility] Comment on above: Order Comment: 106 Performed By: #### L 100.0500, L500.4050 #### [facility] [address] [place], [address] Comprehensive Metabolic Prof ilon 11-07-2024 Albumin [Mass/Vol] 4.1 g/dL Normal 3.5-5.0 [facility] Comment on above: Order Comment: 106 Performed By: #### L 100.0500, L500.4050 #### [facility] [address] [place], [address] Albumin/Globulin [Mass ratio] 1.3 {ratio} Normal 0.9-2.4 [facility] Comment on above: Order Comment: 106 Performed By: #### L 100.0500, L500.4050 #### [facility] [address] [place], [address] ALK PHOS 80 U/L Normal 40-129 [facility] Comment on above: Order Comment: 106 Performed By: #### L 100.0500, L500.4050 #### [facility] [address] [place], [address] ALT [Catalytic activity/Vol] 86 U/L High <=46 [facility] Comment on above: Order Comment: 106 Performed By: #### L 100.0500, L500.4050 #### [facility] [address] [place], [address] AST [Catalytic activity/Vol] 61 U/L High <=37 [facility] Comment on above: Order Comment: 106 Performed By: #### L 100.0500, L500.4050 #### [facility] [address] [place], [address] Bilirubin [Mass/Vol] 0.27 mg/dL Normal 0.00-1.30 [facility] Comment on above: Order Comment: 106 Performed By: #### L 100.0500, L500.4050 #### [facility] [address] [place], [address] BUN/CRE 21.5 RATIO High 10-20 [facility] Comment on above: Order Comment: 106 Performed By: #### L 100.0500, L500.4050 #### [facility] [address] [place], [address] Calcium [Mass/Vol] 9.7 mg/dL Normal 7.6-11.0 [facility] Comment on above: Order Comment: 106 Performed By: #### L 100.0500, L500.4050 #### [facility] [address] [place], [address] Chloride [Moles/Vol] 100 mmol/L Normal 98-108 [facility] Comment on above: Order Comment: 106 Performed By: #### L 100.0500, L500.4050 #### [facility] [address] [place], [address] CO2 [Moles/Vol] 25.1 mmol/L Normal 21.0-32.0 [facility] Comment on above: Order Comment: 106 Performed By: #### L 100.0500, L500.4050 #### [facility] [address] [place], [address] Creatinine [Mass/Vol] 0.84 mg/dL Normal 0.70-1.20 [facility] Comment on above: Order Comment: 106 Performed By: #### L 100.0500, L500.4050 #### [facility] [address] [place], [address] GAP 11 Normal 5-15 [facility] Comment on above: Order Comment: 106 Performed By: #### L 100.0500, L500.4050 #### [facility] [address] [place], [address] GFR/1.73 sq M.predicted among non-blacks MDRD (S/P/Bld) [Vol rate/Area] 120 mL/min/{1.73_m2} Normal >60 [facility] Comment on above: Order Comment: 106 Result Comment: mL/m in/1.73m2 CKD-EPI Creatinine Equation (2020) Performed By: #### L 100.0500, L500.4050 #### [facility] [address] [place], [address] Globulin (S) [Mass/Vol] 3.3 g/dL Normal 2.2-4.2 [facility] Comment on above: Order Comment: 106 Performed By: #### L 100.0500, L500.4050 #### [facility] [address] [place], [address] Glucose [Mass/Vol] 117 mg/dL High 70-99 [facility] Comment on above: Order Comment: 106 Performed By: #### L 100.0500, L500.4050 #### [facility] [address] [place], [address] Potassium [Moles/Vol] 4.2 mmol/L Normal 3.3-5.1 [facility] Comment on above: Order Comment: 106 Performed By: #### L 100.0500, L500.4050 #### [facility] [address] [place], [address] Sodium [Moles/Vol] 136 mmol/L Normal 133-145 [facility] Comment on above: Order Comment: 106 Performed By: #### L 100.0500, L500.4050 #### [facility] [address] [place], [address] T PROT 7.4 g/dL Normal 5.9-8.4 [facility] Comment on above: Order Comment: 106 Performed By: #### L 100.0500, L500.4050 #### [facility] [address] [place], [address] Urea nitrogen [Mass/Vol] 18 mg/dL Normal 4-19 [facility] Comment on above: Order Comment: 106 Performed By: #### L 100.0500, L500.4050 #### [facility] [address] [place], [place], [address] CBC panel Auto (Bld)on 11-03 Erythrocyte distribution width (RBC) [Ratio] 12.2 % 11.5 - 14.5 % [facility] Hematocrit (Bld) [Volume fraction] 42.7 % 41.0 - 52.0 % [facility] Hemoglobin (Bld) [Mass/Vol] 13.6 g/dL 13.5 - 17.5 g/dL [facility] Interpretation and review of laboratory results Abnormal [facility] MCH (RBC) [Entitic mass] 30 pg 26.0 - 34.0 pg [facility] MCHC (RBC) [Mass/Vol] 31.9 g/dL Low 32.0 - 36.0 g/dL [facility] MCV (RBC) [Entitic vol] 94 fL 80 - 100 fL [facility] Nucleated RBC/100 WBC (Bld) [Ratio] 0 % [facility] Platelets (Bld) [#/Vol] 174 10*3/uL [facility] RBC (Bld) [#/Vol] 4.54 10*6/uL [facility] WBC (Bld) [#/Vol] 8 10*3/uL [facility] Erythrocyte distribution width (RBC) [Ratio] 12.2 % Normal 11.5-14.5 [facility] Comment on above: Performed By: #### 5 8410-2 ####MIRANDA Sims ([id number])[facility] ([facility])[address] [place] [address] Hematocrit (Bld) [Volume fraction] 42.7 % Normal 41.0-52.0 [facility] Comment on above: Performed By: #### 5 8410-2 ####MIRANDA Sims ([id number])[facility] ([facility])[id number] [place] [address] Hemoglobin (Bld) [Mass/Vol] 13.6 g/dL Normal 13.5-17.5 [facility] Comment on above: Performed By: #### 5 8410-2 ####MIRANDA Sims ([id number])[facility] ([facility])[address] [place] [address] MCH (RBC) [Entitic mass] 30.0 pg Normal 26.0-34.0 [facility] Comment on above: Performed By: #### 5 8410-2 ####MIRANDA Sims ([id number])[facility] ([facility])[address] [place] [address] MCHC (RBC) [Mass/Vol] 31.9 g/dL Low 32.0-36.0 [facility] Comment on above: Performed By: #### 5 8410-2 ####MIRANDA Sims ([id number])[facility] ([facility])[id number] [place] [address] MCV (RBC) [Entitic vol] 94 fL Normal 80-100 [facility] Comment on above: Performed By: #### 5 8410-2 ####MIRANDA Sims ([id number])[facility] ([facility])[address] [place] [address] Nucleated RBC/100 WBC (Bld) [Ratio] 0.0 /100 WBCs Normal 0.0-0.0 [facility] Comment on above: Performed By: #### 5 8410-2 ####MIRANDA Sims ([id number])[facility] ([facility])[address] [place] [address] Platelets (Bld) [#/Vol] 174 x10*3/uL Normal 150-450 [facility] Comment on above: Performed By: #### 5 8410-2 ####MIRANDA Sims ([id number])[facility] ([facility])[address] [place] [address] RBC (Bld) [#/Vol] 4.54 x10*6/uL Normal 4.50-5.90 [facility] Comment on above: Performed By: #### 5 8410-2 ####MIRANDA Sims ([id number])[facility] ([facility])[address] [place] [address] WBC (Bld) [#/Vol] 8.0 x10*3/uL Normal 4.4-11.3 [facility] Comment on above: Performed By: #### 5 8410-2 ####MIRANDA Sims ([id number])[facility] ([facility])[address] [place] [address] CBC panel Auto (Bld)on 11-02 Erythrocyte distribution width (RBC) [Ratio] 12.1 % 11.5 - 14.5 % [facility] Hematocrit (Bld) [Volume fraction] 41.3 % 41.0 - 52.0 % [facility] Hemoglobin (Bld) [Mass/Vol] 13.6 g/dL 13.5 - 17.5 g/dL [facility] Interpretation and review of laboratory results Abnormal [facility] MCH (RBC) [Entitic mass] 29.8 pg 26.0 - 34.0 pg [facility] MCHC (RBC) [Mass/Vol] 32.9 g/dL 32.0 - 36.0 g/dL [facility] MCV (RBC) [Entitic vol] 90 fL 80 - 100 fL [facility] Nucleated RBC/100 WBC (Bld) [Ratio] 0 % [facility] Platelets (Bld) [#/Vol] 209 10*3/uL [facility] RBC (Bld) [#/Vol] 4.57 10*6/uL [facility] WBC (Bld) [#/Vol] 13.9 10*3/uL [facility] Erythrocyte distribution width (RBC) [Ratio] 12.1 % Normal 11.5-14.5 [facility] Comment on above: Performed By: #### 5 8410-2 ####MIRANDA Sims ([id number])[facility] ([facility])[address] [place] [address] Hematocrit (Bld) [Volume fraction] 41.3 % Normal 41.0-52.0 [facility] Comment on above: Performed By: #### 5 8410-2 ####MIRANDA Sims ([id number])[facility] ([facility])[address] [place] [address] Hemoglobin (Bld) [Mass/Vol] 13.6 g/dL Normal 13.5-17.5 [facility] Comment on above: Performed By: #### 5 8410-2 ####MIRANDA Sims ([id number])[facility] ([facility])[address] [place] [address] MCH (RBC) [Entitic mass] 29.8 pg Normal 26.0-34.0 [facility] Comment on above: Performed By: #### 5 8410-2 ####MIRANDA Sims ([id number])[facility] ([facility])[address] [place] [address] MCHC (RBC) [Mass/Vol] 32.9 g/dL Normal 32.0-36.0 [facility] Comment on above: Performed By: #### 5 8410-2 ####MIRANDA Sims ([id number])[facility] ([facility])[address] [place] [address] MCV (RBC) [Entitic vol] 90 fL Normal 80-100 [facility] Comment on above: Performed By: #### 5 8410-2 ####MIRANDA Sims ([id number])[facility] ([facility])[address] [place] [address] Nucleated RBC/100 WBC (Bld) [Ratio] 0.0 /100 WBCs Normal 0.0-0.0 [facility] Comment on above: Performed By: #### 5 8410-2 ####MIRANDA Sims ([id number])[facility] ([facility])[address] [place] [address] Platelets (Bld) [#/Vol] 209 x10*3/uL Normal 150-450 [facility] Comment on above: Performed By: #### 5 8410-2 ####MIRANDA Sims ([id number])[facility] ([facility])[address] [place] [address] RBC (Bld) [#/Vol] 4.57 x10*6/uL Normal 4.50-5.90 [facility] Comment on above: Performed By: #### 5 8410-2 ####MIRANDA Sims ([id number])[facility] ([facility])[address] [place] [address] WBC (Bld) [#/Vol] 13.9 x10*3/uL High 4.4-11.3 [facility] Comment on above: Performed By: #### 5 8410-2 ####MIRANDA Sims ([id number])[facility] ([facility])[address] [place] [address] Renal function 2000 panelon 11-02-2024 Albumin BCP dye [Mass/Vol] 3.9 g/dL 3.4 - 5.0 g/dL [facility] Anion gap [Moles/Vol] 14 mmol/L 10 - 20 mmol/L [facility] Calcium [Mass/Vol] 8.9 mg/dL 8.6 - 10. 6 mg/dL [facility] Chloride [Moles/Vol] 100 mmol/L 98 - 10 7 mmol/L [facility] CO2 [Moles/Vol] 28 mmol/L 21 - 32 mmol/L [facility] Creatinine [Mass/Vol] 1.02 mg/dL 0.50 - 1.30 mg/dL [facility] eGFR - PINF [facility] Comment on above: Calculations of davey mated GFR are performed using the 2020 CKD-EPI Study Refit equation without the race variable for the IDMS-Traceable creatinine methods. https://jasn.asnjournals.org/content//ASN.15462 75016 Glucose [Mass/Vol] 170 mg/dL High 74 - 99 mg/dL [facility] Interpretation and review of laboratory results Abnormal [facility] Phosphate [Mass/Vol] 3.3 mg/dL 2.5 - 4 .9 mg/dL [facility] Potassium [Moles/Vol] 4.2 mmol/L 3.5 - 5.3 mmol/L [facility] Sodium [Moles/Vol] 138 mmol/L 136 - 145 mmol/L [facility] Urea nitrogen [Mass/Vol] 14 mg/dL 6 - 23 mg/dL [facility] Albumin BCP dye [Mass/Vol] 3.9 g/dL Normal 3.4-5.0 [facility] Comment on above: Performed By: #### 2 4362-6 ####MIRANDA Sims ([id number])[facility] ([facility])[address] [place] [address] Anion gap [Moles/Vol] 14 mmol/L Normal 10-20 [facility] Comment on above: Performed By: #### 2 4362-6 ####MIRANDA Sims ([id number])[facility] ([facility])[address] [place] [address] Calcium [Mass/Vol] 8.9 mg/dL Normal 8.6-10.6 [facility] Comment on above: Performed By: #### 2 4362-6 ####MIRANDA GONZALEZ L ([id number])[facility] ([facility])[address] [place] [address] Chloride [Moles/Vol] 100 mmol/L Normal 98-107 [facility] Comment on above: Performed By: #### 2 4362-6 ####MIRANDA Sims ([id number])[facility] ([facility])[address] [place] [address] CO2 [Moles/Vol] 28 mmol/L Normal 21-32 [facility] Comment on above: Performed By: #### 2 4362-6 ####MIRANDA Sims ([id number])[facility] ([facility])[address] [place] [address] Creatinine [Mass/Vol] 1.02 mg/dL Normal 0.50-1.30 [facility] Comment on above: Performed By: #### 2 4362-6 ####MIRANDA Sims ([id number])[facility] ([facility])[address] [place] [address] GFR/1.73 sq M.predicted MDRD (S/P/Bld) [Vol rate/Area] mL/min/{1.73_m2} Normal >60 [facility] Comment on above: Result Comment: Calc ulations of estimated GFR are performed using the 2020 CKD-EPI Study Refit equation without the race variable for the IDMS-Traceable creatinine methods. https://jasn.asnjournals.org/content//ASN.19315 08499 Performed By: #### 2 4362-6 ####MIRANDA Sims ([id number])[facility] ([facility])[address] [place] [address] Glucose [Mass/Vol] 170 mg/dL High 74-99 [facility] Comment on above: Performed By: #### 2 4362-6 ####MIRANDA Sims ([id number])[facility] ([facility])[address] [place] [address] Phosphate [Mass/Vol] 3.3 mg/dL Normal 2.5-4.9 [facility] Comment on above: Performed By: #### 2 4362-6 ####MIRANDA Sims ([id number])[facility] ([facility])[address] [place] [address] Potassium [Moles/Vol] 4.2 mmol/L Normal 3.5-5.3 [facility] Comment on above: Performed By: #### 2 4362-6 ####MIRANDA Sims ([id number])[facility] ([facility])[address] [place] [address] Sodium [Moles/Vol] 138 mmol/L Normal 136-145 [facility] Comment on above: Performed By: #### 2 4362-6 ####MIRANDA GONZALEZ L ([id number])[facility] ([facility])[address] [place] [address] Urea nitrogen [Mass/Vol] 14 mg/dL Normal 6-23 [facility] Comment on above: Performed By: #### 2 4362-6 ####MIRANDA Sims ([id number])[facility] ([facility])[address] [place] [address] TSH WITH REFLEX TO FREE T4 I F ABNORMALon 11-02-2024 TSH Qn 1.52 m[IU]/L Normal 0.44-3.98 [facility] Comment on above: Order Comment: TSH t esting is performed using different testing methodology at [facility] than at other [facility]. Direct result comparisons should only be made within the same method. Performed By: #### T HYDS ####MIRANDA Sims ([id number])[facility] ([facility])[id number] [place] [address] TSH with reflex to Free T4 i f abnormalon 11-02-2024 Interpretation and review of laboratory results Normal [facility] TSH Qn 1.52 m[IU]/L [facility] TSH testing is performed using different testing methodology at [facility] than at other [facility]. Direct result comparisons should only be made within the same method. [facility] Blood type and Indirect anti body screen panel (Bld)on 11-01-2024 ABO group Nom (Bld) [facility] Blood group antibody screen Ql Negative [facility] D Ag Ql (Bld) Positive [facility] CBC panel Auto (Bld)on 11-01 Erythrocyte distribution width (RBC) [Ratio] 12.3 % 11.5 - 14.5 % [facility] Hematocrit (Bld) [Volume fraction] 45.5 % 41.0 - 52.0 % [facility] Hemoglobin (Bld) [Mass/Vol] 15.2 g/dL 13.5 - 17.5 g/dL [facility] Interpretation and review of laboratory results Normal [facility] MCH (RBC) [Entitic mass] 30.4 pg 26.0 - 34.0 pg [facility] MCHC (RBC) [Mass/Vol] 33.4 g/dL 32.0 - 36.0 g/dL [facility] MCV (RBC) [Entitic vol] 91 fL 80 - 100 fL [facility] Nucleated RBC/100 WBC (Bld) [Ratio] 0 % [facility] Platelets (Bld) [#/Vol] 204 10*3/uL [facility] RBC (Bld) [#/Vol] 5 10*6/uL [facility] WBC (Bld) [#/Vol] 10.2 10*3/uL [facility] Erythrocyte distribution width (RBC) [Ratio] 12.3 % Normal 11.5-14.5 [facility] Comment on above: Performed By: #### 5 8410-2 ####MIRANDA Sims ([id number])[facility] ([facility])[id number] [place] [address] Hematocrit (Bld) [Volume fraction] 45.5 % Normal 41.0-52.0 [facility] Comment on above: Performed By: #### 5 8410-2 ####MIRANDA Sims ([id number])[facility] ([facility])[id number] [place] [address] Hemoglobin (Bld) [Mass/Vol] 15.2 g/dL Normal 13.5-17.5 [facility] Comment on above: Performed By: #### 5 8410-2 ####MIRANDA Sims ([id number])[facility] ([facility])[id number] [place] [address] MCH (RBC) [Entitic mass] 30.4 pg Normal 26.0-34.0 [facility] Comment on above: Performed By: #### 5 8410-2 ####MIRANDA Sims ([id number])[facility] ([facility])[address] [place] [address] MCHC (RBC) [Mass/Vol] 33.4 g/dL Normal 32.0-36.0 [facility] Comment on above: Performed By: #### 5 8410-2 ####MIRANDA Sims ([id number])[facility] ([facility])[address] [place] [address] MCV (RBC) [Entitic vol] 91 fL Normal 80-100 [facility] Comment on above: Performed By: #### 5 8410-2 ####MIRANDA Sims ([id number])[facility] ([facility])[address] [place] [address] Nucleated RBC/100 WBC (Bld) [Ratio] 0.0 /100 WBCs Normal 0.0-0.0 [facility] Comment on above: Performed By: #### 5 8410-2 ####MIRANDA Sims ([id number])[facility] ([facility])[address] [place] [address] Platelets (Bld) [#/Vol] 204 x10*3/uL Normal 150-450 [facility] Comment on above: Performed By: #### 5 8410-2 ####MIRANDA Sims ([id number])[facility] ([facility])[address] [place] [address] RBC (Bld) [#/Vol] 5.00 x10*6/uL Normal 4.50-5.90 [facility] Comment on above: Performed By: #### 5 8410-2 ####MIRANDA Sims ([id number])[facility] ([facility])[address] [place] [address] WBC (Bld) [#/Vol] 10.2 x10*3/uL Normal 4.4-11.3 [facility] Comment on above: Performed By: #### 5 8410-2 ####MIRANDA Sims ([id number])[facility] ([facility])[address] [place] [id number] Cervical spine WO contras ton 11-01-2024 1. No acute fracture or traumatic malalignment of the cervical spine. I personally reviewed the images/study and resident's interpretation and I agree with the findings as stated by Anisa Mena MD (resident radiologist). This study was analyzed and interpreted at [facility], [place], [place]. MACRO: None. Signed by: Julián Mendez 11/01/2024 1:04 AM Dictation workstation: [id number] Interpreted By: Julián Mnedez and Hofer Lindsay STUDY: CT CERVICAL SPINE WO IV CONTRAST; 11/01/2024 12:31 am INDICATION: Signs/Symptoms:fall/s eizure. COMPARISON: None. ACCESSION NUMBER(S): [id number] ORDERING CLINICIAN: EDNA CHOUDHARY TECHNIQUE: Axial noncontrast [...] INDICATION: Signs/Symptoms:fall/s eizure. COMPARISON: None. ACCESSION NUMBER(S): [id number] ORDERING CLINICIAN: EDNA CHOUDHARY TECHNIQUE: Axial noncontrast [...] This study was analyzed and interpreted at [place], [place]. MACRO: None. Signed by: Julián Mendez 11/01/2024 1:04 AM Dictation workstation: [id number] [facility] Work Phone: [facility] Work Phone: Creatine Kinaseon 11-01-2024 CK [Catalytic activity/Vol] 56 U/L 0 - 325 U/L [facility] Creatine kinaseon 11-01-2024 CK [Catalytic activity/Vol] 56 U/L Normal 0-325 [facility] Comment on above: Performed By: #### 2 157-6 ####MIRANDA Sims ([id number])[facility] ([facility])[address] [place], [place] [address] DRUG SCREEN,URINEon 11-02-19 25 Amphetamines Screen Ql (U) Negative Presumptive Negative [facility] Comment on above: CUTOFF LEVEL: 500 NG /ML Cross-reactivity has been reported with high concentrations of the following drugs: buproprion, chloroquine, chlorpromazine, ephedrine, mephentermine, fenfluramine, phentermine, phenylpropanolamine, pseudoephedrine, and propranolol. Barbiturates Screen Ql (U) Negative Presumptive Negative [facility] Comment on above: CUTOFF LEVEL: 200 NG /ML Benzodiazepines Ql (U) Negative Presu mptive Negative [facility] Comment on above: CUTOFF LEVEL: 200 NG /ML Benzoylecgonine Screen Ql (U) Positive Abnormal Presumptive Negative [facility] Comment on above: CUTOFF LEVEL: 150 NG /ML Cannabinoids Screen Ql (U) Positive Abnormal Presumptive Negative [facility] Comment on above: CUTOFF LEVEL: 50 NG/ ML fentaNYL+Norfentanyl Screen Ql (U) Negative Presumptive Negative [facility] Comment on above: CUTOFF LEVEL: 5 NG/M L Interpretation and review of laboratory results Abnormal [facility] Methadone Screen Ql (U) Negative Presumptive Negative [facility] Comment on above: CUTOFF LEVEL: 150 NG /ML The metabolite F-qtykz-feweeppgnkeols (LAAM) is not detected by this method in concentrations that would be found in the urine of patients on LAAM therapy. Opiates Screen Ql (U) Negative Presum ptive Negative [facility] Comment on above: CUTOFF LEVEL: 300 NG /ML The opiate screen does not detect fentanyl, meperidine, or tramadol. Oxycodone is not consistently detected (refer to Oxycodone Screen, Urine result). oxyCODONE+oxyMORphone Screen Ql (U) Negative Presumptive Negative [facility] Comment on above: CUTOFF LEVEL: 100 NG /ML This test will accurately detect both oxycodone and oxymorphone. Phencyclidine Ql (U) Negative Presump tive Negative [facility] Comment on above: CUTOFF LEVEL: 25 NG/ ML Cross-reactivity has been reported with dextromethorphan. Drug screen results are presumptive and should not be used to assess compliance with prescribed medication. Contact the performing [facility] laboratory to add-on definitive confirmatory testing [...] directed to the laboratory medical directors. [facility] Amphetamines Screen Ql (U) Negative Normal Presumptive Negative [facility] Comment on above: Order Comment: Drug screen results are presumptive and should not be used to assesscompliance with prescribed medication. Contact the performing [facility] laboratoryto add-on definitive confirmatory testing if [...] Performed By: #### D RUG3 ####MIRANDA Sims ([id number])[facility] ([facility])[address] [place] [address] Barbiturates Screen Ql (U) Negative Normal Presumptive Negative [facility] Comment on above: Order Comment: Drug screen results are presumptive and should not be used to assesscompliance with prescribed medication. Contact the performing [facility] laboratoryto add-on definitive confirmatory testing if [...] By: #### D RUG3 ####MIRANDA GONZALEZ L ([id number])[facility] ([facility])[address] [place] [address] Benzodiazepines Ql (U) Negative Normal Presu mptive Negative [facility] Comment on above: Order Comment: Drug screen results are presumptive and should not be used to assesscompliance with prescribed medication. Contact the performing [facility] laboratoryto add-on definitive confirmatory testing if [...] By: #### D RUG3 ####MIRANDA GONZALEZ L ([id number])[facility] ([facility])[address] [place] [address] Benzoylecgonine Screen Ql (U) Positive Abnormal Presumptive Negative [facility] Comment on above: Order Comment: Drug screen results are presumptive and should not be used to assesscompliance with prescribed medication. Contact the performing [facility] laboratoryto add-on definitive confirmatory testing if [...] By: #### D RUG3 ####MIRANDA CARDTZBETTYE L ([id number])[facility] ([facility])[address] [place] [address] Cannabinoids Screen Ql (U) Positive Abnormal Presumptive Negative [facility] Comment on above: Order Comment: Drug screen results are presumptive and should not be used to assesscompliance with prescribed medication. Contact the performing [facility] laboratoryto add-on definitive confirmatory testing if [...] Performed By: #### D RUG3 ####MIRANDA Sims ([id number])[facility] ([facility])[address] [place] [address] fentaNYL+Norfentanyl Screen Ql (U) Negative Normal Presumptive Negative [facility] Comment on above: Order Comment: Drug screen results are presumptive and should not be used to assesscompliance with prescribed medication. Contact the performing [facility] laboratoryto add-on definitive confirmatory testing if [...] By: #### D RUG3 ####MIRANDA GONZALEZ L ([id number])[facility] ([facility])[address] [place], [place] [address] Methadone Screen Ql (U) Negative Normal Presumptive Negative [facility] Comment on above: Order Comment: Drug screen results are presumptive and should not be used to assesscompliance with prescribed medication. Contact the performing [facility] laboratoryto add-on definitive confirmatory testing if [...] CUTO FF LEVEL: 150 NG/ML The metabolite W-jfvfp-pftibsbtoxjybg (LAAM) is not detected by this method in concentrations that would be found in the urine of patients on LAAM therapy. Performed By: #### D RUG3 ####MIRANDA Sims ([id number])[facility] ([facility])[address] [place] [address] Opiates Screen Ql (U) Negative Normal Presum ptive Negative [facility] Comment on above: Order Comment: Drug screen results are presumptive and should not be used to assesscompliance with prescribed medication. Contact the performing [facility] laboratoryto add-on definitive confirmatory testing if [...] Performed By: #### D RUG3 ####MIRANDA Sims ([id number])[facility] ([facility])[address] [place], [place] [address] oxyCODONE+oxyMORphone Screen Ql (U) Negative Normal Presumptive Negative [facility] Comment on above: Order Comment: Drug screen results are presumptive and should not be used to assesscompliance with prescribed medication. Contact the performing [facility] laboratoryto add-on definitive confirmatory testing if [...] Performed By: #### D RUG3 ####MIRANDA Sims ([id number])[facility] ([facility])[address] [place] [address] Phencyclidine Ql (U) Negative Normal Presump tive Negative [facility] Comment on above: Order Comment: Drug screen results are presumptive and should not be used to assesscompliance with prescribed medication. Contact the performing [facility] laboratoryto add-on definitive confirmatory testing if [...] Performed By: #### D RUG3 ####MIRANDA Sims ([id number])[facility] ([facility])[address] [place] [address] [place] FLUORO IMAGES NO CHARGEon 11-01-2024 FL FLUORO IMAGES NO CHARGE These images are not reportable by radiology and will not be interpreted by Radiologists. Normal [facility] Lactateon 11-01-2024 Lactate [Moles/Vol] 1.2 mmol/L 0.4 - 2. 0 mmol/L [facility] Lactate [Moles/Vol] 1.2 mmol/L Normal 0.4-2.0 [facility] Comment on above: Order Comment: Venip uncture immediately after or during the administration of Metamizole may lead to falsely low results. Testing should be performed immediately prior to Metamizole dosing. Performed By: #### 2 524-7 ####MIRANDA Sims ([id number])[facility] ([facility])[address] [place] [address] Lactate [Moles/Vol]on 2024 Venipuncture immediately after or during the administration of Metamizole may lead to falsely low results. Testing should be performed immediately prior to Metamizole dosing. [facility] No Panel Informationon 11-01 Interpretation and review of laboratory results Normal [facility] CT CHEST/ABDOMEN/PELVIS: *No acute traumatic injury. CT THORACIC AND LUMBAR SPINE: *No acute fracture or traumatic malalignment. I personally reviewed the images/study and I agree with the findings as stated by resident Horacio Loera. This study was interpreted at [place], [place]. MACRO: None. Signed by: Julián Mendez 11/01/2024 1:14 AM Dictation workstation: [id number] Interpreted By: Julián Mendez and Ritchie Brandon STUDY: CT CHEST ABDOMEN PELVIS W IV CONTRAST; CT THORACIC SPINE RETROSPECTIVE RECONSTRUCTION PROTOCOL; CT LUMBAR SPINE RETROSPECTIVE RECONSTRUCTION PROTOCOL; 11/01/2024 12:31 am INDICATION: Signs/Symptoms:fall/s eizure. COMPARISON: Radiograph of the chest 10/31/2024. ACCESSION NUMBER(S): [id number]; [id number]; [id number] ORDERING CLINICIAN: EDNA CHOUDHARY TECHNIQUE: Contiguous axial [...] Radiograph of the chest 10/31/2024. ACCESSION NUMBER(S): [id number]; [id number]; [id number] ORDERING CLINICIAN: EDNA CHOUDHARY TECHNIQUE: Contiguous axial [...] Horacio Loera. This study was interpreted at [place], [place]. MACRO: None. Signed by: Julián Mendez 11/01/2024 1:14 AM Dictation workstation: [id number] [facility] Work Phone: [facility] Work Phone: Radiology Study observation (narrative) [facility] Work Phone: Renal function 2000 panelon 11-01-2024 Albumin BCP dye [Mass/Vol] 4.4 g/dL 3.4 - 5.0 g/dL [facility] Anion gap [Moles/Vol] 12 mmol/L 10 - 20 mmol/L [facility] Calcium [Mass/Vol] 9.2 mg/dL 8.6 - 10. 6 mg/dL [facility] Chloride [Moles/Vol] 102 mmol/L 98 - 10 7 mmol/L [facility] CO2 [Moles/Vol] 28 mmol/L 21 - 32 mmol/L [facility] Creatinine [Mass/Vol] 0.9 mg/dL 0.50 - 1.30 mg/dL [facility] eGFR - PINF [facility] Comment on above: Calculations of davey mated GFR are performed using the 2020 CKD-EPI Study Refit equation without the race variable for the IDMS-Traceable creatinine methods. https://jasn.asnjournals.org/content//ASN.71203 42712 Glucose [Mass/Vol] 102 mg/dL High 74 - 99 mg/dL [facility] Interpretation and review of laboratory results Abnormal [facility] Phosphate [Mass/Vol] 3.5 mg/dL 2.5 - 4 .9 mg/dL [facility] Potassium [Moles/Vol] 4.5 mmol/L 3.5 - 5.3 mmol/L [facility] Sodium [Moles/Vol] 137 mmol/L 136 - 145 mmol/L [facility] Urea nitrogen [Mass/Vol] 13 mg/dL 6 - 23 mg/dL [facility] Albumin BCP dye [Mass/Vol] 4.4 g/dL Normal 3.4-5.0 [facility] Comment on above: Performed By: #### 2 4362-6 ####MIRANDA Sims ([id number])[facility] ([facility])[address] [place] [address] Anion gap [Moles/Vol] 12 mmol/L Normal 10-20 [facility] Comment on above: Performed By: #### 2 4362-6 ####MIRANDA Sims ([id number])[facility] ([facility])[address] [place] [address] Calcium [Mass/Vol] 9.2 mg/dL Normal 8.6-10.6 [facility] Comment on above: Performed By: #### 2 4362-6 ####MIRANDA Sims ([id number])[facility] ([facility])[address] [place] [address] Chloride [Moles/Vol] 102 mmol/L Normal 98-107 [facility] Comment on above: Performed By: #### 2 4362-6 ####MIRANDA GONZALEZ L ([id number])[facility] ([facility])[address] [place] [address] CO2 [Moles/Vol] 28 mmol/L Normal 21-32 [facility] Comment on above: Performed By: #### 2 4362-6 ####MIRANDA Sims ([id number])[facility] ([facility])[address] [place] [address] Creatinine [Mass/Vol] 0.90 mg/dL Normal 0.50-1.30 [facility] Comment on above: Performed By: #### 2 4362-6 ####MIRANDA Sims ([id number])[facility] ([facility])[address] [place] [address] GFR/1.73 sq M.predicted MDRD (S/P/Bld) [Vol rate/Area] mL/min/{1.73_m2} Normal >60 [facility] Comment on above: Result Comment: Calc ulations of estimated GFR are performed using the 2020 CKD-EPI Study Refit equation without the race variable for the IDMS-Traceable creatinine methods. https://jasn.asnjournals.org/content/early/ASN.35313 86716 Performed By: #### 2 4362-6 ####MIRANDA Sims ([id number])[facility] ([facility])[address] [place] [address] Glucose [Mass/Vol] 102 mg/dL High 74-99 [facility] Comment on above: Performed By: #### 2 4362-6 ####MIRANDA Sims ([id number])[facility] ([facility])[address] [place] [address] Phosphate [Mass/Vol] 3.5 mg/dL Normal 2.5-4.9 [facility] Comment on above: Performed By: #### 2 4362-6 ####MIRANDA Sims ([id number])[facility] ([facility])[address] [place] [address] Potassium [Moles/Vol] 4.5 mmol/L Normal 3.5-5.3 [facility] Comment on above: Performed By: #### 2 4362-6 ####MIRANDA Sims ([id number])[facility] ([facility])[address] [place] [address] Sodium [Moles/Vol] 137 mmol/L Normal 136-145 [facility] Comment on above: Performed By: #### 2 4362-6 ####MIRANDA Sims ([id number])[facility] ([facility])[address] [place] [address] Urea nitrogen [Mass/Vol] 13 mg/dL Normal - [facility] Comment on above: Performed By: #### 2 4362-6 ####MIRANDA Sims ([id number])[facility] ([facility])[address] [place] [address] XR tomography Unspecified vanessa dy regionon 11-01-2024 These images are not reportable by radiology and will not be interpreted by Radiologists. IMAGING Blood type and Indirect anti body screen panel (Bld)on 10-31-2024 ABO group Nom (Bld) A Normal [facility] Comment on above: Performed By: #### 3 4532-2 ####MIRANDA Sims ([id number])[facility] ([facility])[address] [place] [phone] Blood group antibody screen Ql Negative Normal [facility] Comment on above: Performed By: #### 3 4532-2 ####MIRANDA Sims ([id number])[facility] ([facility])[address] [place], [place] [address] D Ag Ql (Bld) Positive Normal [facility] Comment on above: Performed By: #### 3 4532-2 ####MIRANDA Sims ([id number])[facility] ([facility])[address] [place] [address] CBC W Auto Differential pane l (Bld)on 10-31-2024 Basophils (Bld) [#/Vol] 0.07 10*3/uL [facility] Basophils/100 WBC (Bld) 0.5 % 0.0 - 2.0 % [facility] Eosinophils (Bld) [#/Vol] 0.09 10*3/uL [facility] Eosinophils/100 WBC (Bld) 0.7 % 0.0 - 6.0 % [facility] Erythrocyte distribution width (RBC) [Ratio] 12 % 11.5 - 14.5 % [facility] Hematocrit (Bld) [Volume fraction] 45.9 % 41.0 - 52.0 % [facility] Hemoglobin (Bld) [Mass/Vol] 16.3 g/dL 13.5 - 17.5 g/dL [facility] Immature granulocytes (Bld) [#/Vol] 0.09 10*3/uL [facility] Immature granulocytes/100 WBC (Bld) 0.7 % 0.0 - 0.9 % [facility] Comment on above: Immature Granulocyte Count (IG) includes promyelocytes, myelocytes and metamyelocytes but does not include bands. Percent differential counts (%) should be interpreted in the context of the absolute cell counts (cells/UL). Interpretation and review of laboratory results Abnormal [facility] Lymphocytes (Bld) [#/Vol] 2.28 10*3/uL [facility] Lymphocytes/100 WBC (Bld) 16.5 % 13.0 - 44.0 % [facility] MCH (RBC) [Entitic mass] 30.2 pg 26.0 - 34.0 pg [facility] MCHC (RBC) [Mass/Vol] 35.5 g/dL 32.0 - 36.0 g/dL [facility] MCV (RBC) [Entitic vol] 85 fL 80 - 100 fL [facility] Monocytes (Bld) [#/Vol] 0.96 10*3/uL [facility] Monocytes/100 WBC (Bld) 7 % 2.0 - 10.0 % [facility] Neutrophils (Bld) [#/Vol] 10.32 10*3/uL High [facility] Comment on above: Percent differential counts (%) should be interpreted in the context of the absolute cell counts (cells/uL). Neutrophils/100 WBC (Bld) 74.6 % 40.0 - 80.0 % [facility] Nucleated RBC/100 WBC (Bld) [Ratio] 0 % [facility] Platelets (Bld) [#/Vol] 230 10*3/uL [facility] RBC (Bld) [#/Vol] 5.4 10*6/uL [facility] WBC (Bld) [#/Vol] 13.8 10*3/uL [facility] Basophils (Bld) [#/Vol] 0.07 x10*3/uL Normal 0.00-0.10 [facility] Comment on above: Performed By: #### 5 7021-8 #### MIRANDA Sims ([id number]) [facility] ([facility]) [address] [place] [address] Basophils/100 WBC (Bld) 0.5 % Normal 0.0-2.0 [facility] Comment on above: Performed By: #### 5 7021-8 #### MIRANDA Sims ([id number]) [facility] ([facility]) [address] [place] [address] Eosinophils (Bld) [#/Vol] 0.09 x10*3/uL Normal 0.00-0.70 [facility] Comment on above: Performed By: #### 5 7021-8 #### MIRANDA GONZALEZ L ([id number]) [facility] ([facility]) [address] [place] [address] Eosinophils/100 WBC (Bld) 0.7 % Normal 0.0-6.0 [facility] Comment on above: Performed By: #### 5 7021-8 #### MIRANDA Sims ([id number]) [facility] ([facility]) [address] [place] [address] Erythrocyte distribution width (RBC) [Ratio] 12.0 % Normal 11.5-14.5 [facility] Comment on above: Performed By: #### 5 7021-8 #### MIRANDA GONZALEZ L ([id number]) [facility] ([facility]) [address] [place] [address] Hematocrit (Bld) [Volume fraction] 45.9 % Normal 41.0-52.0 [facility] Comment on above: Performed By: #### 5 7021-8 #### MIRANDA GONZALEZ L ([id number]) [facility] ([facility]) [address] [place] [address] Hemoglobin (Bld) [Mass/Vol] 16.3 g/dL Normal 13.5-17.5 [facility] Comment on above: Performed By: #### 5 7021-8 #### MIRANDA Sims ([id number]) [facility] ([facility]) [address] [place] [address] Immature granulocytes (Bld) [#/Vol] 0.09 x10*3/uL Normal 0.00-0.70 [facility] Comment on above: Performed By: #### 5 7021-8 #### MIRANDA Sims ([id number]) [facility] ([facility]) [id number] [place] [address] Immature granulocytes/100 WBC (Bld) 0.7 % Normal 0.0-0.9 [facility] Comment on above: Result Comment: Zora ture Granulocyte Count (IG) includes promyelocytes, myelocytes and metamyelocytes but does not include bands. Percent differential counts (%) should be interpreted in the context of the absolute cell counts (cells/UL). Performed By: #### 5 7021-8 #### MIRANDA Sims ([id number]) [facility] ([facility]) [address] [place] [address] Lymphocytes (Bld) [#/Vol] 2.28 x10*3/uL Normal 1.20-4.80 [facility] Comment on above: Performed By: #### 5 7021-8 #### MIRANDA Sims ([id number]) [facility] ([facility]) [address] [place] [address] Lymphocytes/100 WBC (Bld) 16.5 % Normal 13.0-44.0 [facility] Comment on above: Performed By: #### 5 7021-8 #### MIRANDA Sims ([id number]) [facility] ([facility]) [address] [place] [address] MCH (RBC) [Entitic mass] 30.2 pg Normal 26.0-34.0 [facility] Comment on above: Performed By: #### 5 7021-8 #### MIRANDA Sims ([id number]) [facility] ([facility]) [address] [place] [address] MCHC (RBC) [Mass/Vol] 35.5 g/dL Normal 32.0-36.0 [facility] Comment on above: Performed By: #### 5 7021-8 #### MIRANDA Sims ([id number]) [facility] ([facility]) [address] [place] [address] 04682 MCV (RBC) [Entitic vol] 85 fL Normal 80-100 [facility] Comment on above: Performed By: #### 5 7021-8 #### MIRANDA Sims ([id number]) [facility] ([facility]) [address] [place] [address] 49608 Monocytes (Bld) [#/Vol] 0.96 x10*3/uL Normal 0.10-1.00 [facility] Comment on above: Performed By: #### 5 7021-8 #### MIRANDA Sims ([id number]) [facility] ([facility]) [address] [place] [address] 59806 Monocytes/100 WBC (Bld) 7.0 % Normal 2.0-10.0 [facility] Comment on above: Performed By: #### 5 7021-8 #### MIRANDA Sims ([id number]) [facility] ([facility]) [address] [place] [address] 85052 Neutrophils (Bld) [#/Vol] 10.32 x10*3/uL High 1.20-7.70 [facility] Comment on above: Result Comment: Perc ent differential counts (%) should be interpreted in the context of the absolute cell counts (cells/uL). Performed By: #### 5 7021-8 #### MIRANDA GONZALEZ L ([id number]) [facility] ([facility]) [address] [place] [address] Neutrophils/100 WBC (Bld) 74.6 % Normal 40.0-80.0 [facility] Comment on above: Performed By: #### 5 7021-8 #### MIRANDA ARANDAER L ([id number]) [facility] ([facility]) [address] [place] [address] Nucleated RBC/100 WBC (Bld) [Ratio] 0.0 /100 WBCs Normal 0.0-0.0 [facility] Comment on above: Performed By: #### 5 7021-8 #### MIRANDA SCHMOTZER L ([id number]) [facility] ([facility]) [address] [place] [address] 40289 Platelets (Bld) [#/Vol] 230 x10*3/uL Normal 150-450 [facility] Comment on above: Performed By: #### 5 7021-8 #### MIRANDA SCHMOTZER L ([id number]) [facility] ([facility]) [address] [place] [address] 59151 RBC (Bld) [#/Vol] 5.40 x10*6/uL Normal 4.50-5.90 [facility] Comment on above: Performed By: #### 5 7021-8 #### MIRANDA STEVEMOTZER L ([id number]) [facility] ([facility]) [address] [place] [address] 97166 WBC (Bld) [#/Vol] 13.8 x10*3/uL High 4.4-11.3 [facility] Comment on above: Performed By: #### 5 7021-8 #### MIRANDA STEVEMOTZER L ([id number]) [facility] ([facility]) [address] [place] [address] ANKLE RIGHT WO IV CONTRAS Ton 10-31-2024 CT ANKLE RIGHT WO IV CONTRAST Interpreted By: Julián Mendez and Ritchie Brandon STUDY: CT of right foot without contrast. INDICATION: Signs/Symptoms:ankle fx COMPARISON: Radiographs of the ankle 10/31/2024. ACCESSION NUMBER(S): [id number] ORDERING CLINICIAN: NOAH COLVIN TECHNIQUE: Contiguous axial [...] Horacio Loera. This study was interpreted at [place], [place]. MACRO: None Signed by: Julián Mendez 10/31/2024 11:31 PM Dictation workstation: [id number] Normal [facility] CT Ankle - right WO [...] Horacio Loera. This study was interpreted at [place], [place]. MACRO: None Signed by: Julián Mendez 10/31/2024 11:31 PM Dictation workstation: [id number] Interpreted By: Julián Mendez and Evaristo Leonard STUDY: CT of right foot without contrast. INDICATION: Signs/Symptoms:ankle fx COMPARISON: Radiographs of the ankle 10/31/2024. ACCESSION NUMBER(S): [id number] ORDERING CLINICIAN: NOAH COLVIN TECHNIQUE: Contiguous axial [...] Radiographs of the ankle 10/31/2024. ACCESSION NUMBER(S): [id number] ORDERING CLINICIAN: NOAH COLVIN TECHNIQUE: Contiguous axial [...] Horacio Loera. This study was interpreted at [facility], [place], [place]. MACRO: None Signed by: Julián Mendez 10/31/2024 11:31 PM Dictation workstation: [id number] [facility] Work Phone: [facility] Work Phone: [facility] CERVICAL SPINE WO IV CONTRAST Interpreted By: Julián Mendez, Paulina Lange STUDY: CT CERVICAL SPINE WO IV CONTRAST; 11/01/2024 12:31 am INDICATION: Signs/Symptoms:fall/s eizure. COMPARISON: None. ACCESSION NUMBER(S): [id number] ORDERING CLINICIAN: EDNA CHOUDHARY TECHNIQUE: Axial noncontrast [...] This study was analyzed and interpreted at [place], [place]. MACRO: None. Signed by: Julián Mendez 11/01/2024 1:04 AM Dictation workstation: [id number] [facility] CT CHEST ABDOMEN PELVIS W IV CONTRASTon 10-31-2024 CT CHEST ABDOMEN PELVIS W IV CONTRAST Interpreted By: Julián Mendez and Evaristo Leonard STUDY: CT CHEST ABDOMEN PELVIS W IV CONTRAST; CT THORACIC SPINE RETROSPECTIVE RECONSTRUCTION PROTOCOL; CT LUMBAR SPINE RETROSPECTIVE RECONSTRUCTION PROTOCOL; 11/01/2024 12:31 am INDICATION: Signs/Symptoms:fall/s eizure. COMPARISON: Radiograph of the chest 10/31/2024. ACCESSION NUMBER(S): [id number]; [id number]; [id number] ORDERING CLINICIAN: EDNA CHOUDHARY TECHNIQUE: Contiguous axial [...] Horacio Loera. This study was interpreted at [facility], [place], [place]. MACRO: None. Signed by: Julián Mendez 11/01/2024 1:14 AM Dictation workstation: [id number] Normal [facility] CT HEAD WO IV CONTRASTon CT HEAD WO IV CONTRAST Interpreted By: Julián Mendez, Errol Leonard STUDY: CT HEAD WO IV CONTRAST; 10/31/2024 9:49 pm INDICATION: Signs/Symptoms:mult falls, LOC vs seizure COMPARISON: None. ACCESSION NUMBER(S): [id number] ORDERING CLINICIAN: NOAH COLVIN TECHNIQUE: Axial noncontrast [...] Horacio Loera. This study was interpreted at [place], [place]. MACRO: None. Signed by: Julián Mendez 10/31/2024 10:31 PM Dictation workstation: [id number] [facility] CT Head WO contraston 2024 CT HEAD: *No acute intracranial abnormality or calvarial fracture. I personally reviewed the images/study and I agree with the findings as stated by resident Horacio Loera. This study was interpreted at [place], [place]. MACRO: None. Signed by: Julián Mendez 10/31/2024 10:31 PM Dictation workstation: [id number] MMODAL Interpreted By: Julián Mendez and Ritchie Brandon STUDY: CT HEAD WO IV CONTRAST; 10/31/2024 9:49 pm INDICATION: Signs/Symptoms:mult falls, LOC vs seizure COMPARISON: None. ACCESSION NUMBER(S): [id number] ORDERING CLINICIAN: NOAH COLVIN TECHNIQUE: Axial noncontrast [...] LOC vs seizure COMPARISON: None. ACCESSION NUMBER(S): [id number] ORDERING CLINICIAN: NOAH COLVIN TECHNIQUE: Axial noncontrast [...] Horacio Loera. This study was interpreted at [facility], [place], [place]. MACRO: None. Signed by: Julián Mendez 10/31/2024 10:31 PM Dictation workstation: [id number] [facility] Work Phone: [facility] Work Phone: CT LUMBAR SPINE RETROSPECTIV E RECONSTRUCTION PROTOCOLon 10-31-2024 CT LUMBAR SPINE RETROSPECTIVE RECONSTRUCTION PROTOCOL Interpreted By: Julián Mendez and Ritchie Brandon STUDY: CT CHEST ABDOMEN PELVIS W IV CONTRAST; CT THORACIC SPINE RETROSPECTIVE RECONSTRUCTION PROTOCOL; CT LUMBAR SPINE RETROSPECTIVE RECONSTRUCTION PROTOCOL; 11/01/2024 12:31 am INDICATION: Signs/Symptoms:fall/s eizure. COMPARISON: Radiograph of the chest 10/31/2024. ACCESSION NUMBER(S): [id number]; [id number]; [id number] ORDERING CLINICIAN: EDNA CHOUDHARY TECHNIQUE: Contiguous axial [...] Horacio Loera. This study was interpreted at [place], [place]. MACRO: None. Signed by: Julián Mendez 11/01/2024 1:14 AM Dictation workstation: [id number] Normal [facility] CT THORACIC SPINE RETROSPECT IVONE RECONSTRUCTION PROTOCOLon 10-31-2024 CT THORACIC SPINE RETROSPECTIVE RECONSTRUCTION PROTOCOL Interpreted By: Julián Mendez and Ritchie Brandon STUDY: CT CHEST ABDOMEN PELVIS W IV CONTRAST; CT THORACIC SPINE RETROSPECTIVE RECONSTRUCTION PROTOCOL; CT LUMBAR SPINE RETROSPECTIVE RECONSTRUCTION PROTOCOL; 11/01/2024 12:31 am INDICATION: Signs/Symptoms:fall/s eizure. COMPARISON: Radiograph of the chest 10/31/2024. ACCESSION NUMBER(S): [id number]; [id number]; [id number] ORDERING CLINICIAN: EDNA CHOUDHARY TECHNIQUE: Contiguous axial [...] Horacio Loera. This study was interpreted at [facility], [place], [place]. MACRO: None. Signed by: Julián Mendez 11/01/2024 1:14 AM Dictation workstation: [id number] Normal [facility] Comprehensive metabolic 2000 panelon 10-31-2024 Albumin BCP dye [Mass/Vol] 4.8 g/dL 3.4 - 5.0 g/dL [facility] ALP [Catalytic activity/Vol] 89 U/L 33 - 120 U/L [facility] ALT With P-5'-P [Catalytic activity/Vol] 39 U/L 10 - 52 U/L [facility] Comment on above: Patients treated wit h Sulfasalazine may generate falsely decreased results for ALT. Anion gap [Moles/Vol] 12 mmol/L 10 - 20 mmol/L [facility] AST With P-5'-P [Catalytic activity/Vol] 24 U/L 9 - 39 U/L [facility] Bilirubin [Mass/Vol] 0.6 mg/dL 0.0 - 1 .2 mg/dL [facility] Calcium [Mass/Vol] 10.1 mg/dL 8.6 - 10. 6 mg/dL [facility] Chloride [Moles/Vol] 98 mmol/L 98 - 10 7 mmol/L [facility] CO2 [Moles/Vol] 29 mmol/L 21 - 32 mmol/L [facility] Creatinine [Mass/Vol] 1.14 mg/dL 0.50 - 1.30 mg/dL [facility] GFR/1.73 sq M.predicted among non-blacks MDRD (S/P/Bld) [Vol rate/Area] 88 mL/min/{1.73_m2} - PINF [facility] Comment on above: Calculations of davey mated GFR are performed using the 2020 CKD-EPI Study Refit equation without the race variable for the IDMS-Traceable creatinine methods. https://jasn.asnjournals.org/content//ASN.76278 37863 Glucose [Mass/Vol] 101 mg/dL High 74 - 99 mg/dL [facility] Interpretation and review of laboratory results Abnormal [facility] Potassium [Moles/Vol] 4.4 mmol/L 3.5 - 5.3 mmol/L [facility] Protein [Mass/Vol] 8.2 g/dL 6.4 - 8.2 g/dL Un [facility] Sodium [Moles/Vol] 135 mmol/L Low 136 - 145 mmol/L [facility] Urea nitrogen [Mass/Vol] 15 mg/dL 6 - 23 mg/dL [facility] Albumin BCP dye [Mass/Vol] 4.8 g/dL Normal 3.4-5.0 [facility] Comment on above: Performed By: #### 2 4323-8 #### MIRANDA Sims ([id number]) [facility] ([facility]) [address] [place] [address] 07999 ALP [Catalytic activity/Vol] 89 U/L Normal 33-120 [facility] Comment on above: Performed By: #### 2 4323-8 #### MIRANDA Sims ([id number]) [facility] ([facility]) [address] [place] [address] 51053 ALT With P-5'-P [Catalytic activity/Vol] 39 U/L Normal 10-52 [facility] Comment on above: Result Comment: Chloe ents treated with Sulfasalazine may generate falsely decreased results for ALT. Performed By: #### 2 4323-8 #### MIRANDA Sims ([id number]) [facility] ([facility]) [address] [place] [address] 39303 Anion gap [Moles/Vol] 12 mmol/L Normal 10-20 [facility] Comment on above: Performed By: #### 2 4323-8 #### MIRANDA Sims ([id number]) [facility] ([facility]) [address] [place] [address] 82328 AST With P-5'-P [Catalytic activity/Vol] 24 U/L Normal 9-39 [facility] Comment on above: Performed By: #### 2 4323-8 #### MIRANDA Sims ([id number]) [facility] ([facility]) [address] [place] [address] 90211 Bilirubin [Mass/Vol] 0.6 mg/dL Normal 0.0-1.2 [facility] Comment on above: Performed By: #### 2 4323-8 #### MIRANDA Sims ([id number]) [facility] ([facility]) [address] [place] [address] 46311 Calcium [Mass/Vol] 10.1 mg/dL Normal 8.6-10.6 [facility] Comment on above: Performed By: #### 2 4323-8 #### MIRANDA Sims ([id number]) [facility] ([facility]) [address] [place] [address] Chloride [Moles/Vol] 98 mmol/L Normal 98-107 [facility] Comment on above: Performed By: #### 2 4323-8 #### MIRANDA Sims ([id number]) [facility] ([facility]) [address] [place] [address] CO2 [Moles/Vol] 29 mmol/L Normal 21-32 [facility] Comment on above: Performed By: #### 2 4323-8 #### MIRANDA Sims ([id number]) [facility] ([facility]) [address] [place] [address] 05676 Creatinine [Mass/Vol] 1.14 mg/dL Normal 0.50-1.30 [facility] Comment on above: Performed By: #### 2 4323-8 #### MIRANDA Sims ([id number]) [facility] ([facility]) [address] [place] [address] Glomerular filtration rate/1.73 sq M.predicted 88 mL/min/1.73m*2 Normal >60 [facility] Comment on above: Result Comment: Calc ulations of estimated GFR are performed using the 2020 CKD-EPI Study Refit equation without the race variable for the IDMS-Traceable creatinine methods. https://jasn.asnjournals.org/content/early//ASN.93506 04637 Performed By: #### 2 4323-8 #### MIRANDA Sims ([id number]) [facility] ([facility]) [address] [place] [address] 21349 Glucose [Mass/Vol] 101 mg/dL High 74-99 [facility] Comment on above: Performed By: #### 2 4323-8 #### MIRANDA Sims ([id number]) [facility] ([facility]) [address] [place] [address] 65043 Potassium [Moles/Vol] 4.4 mmol/L Normal 3.5-5.3 [facility] Comment on above: Performed By: #### 2 4323-8 #### MIRANDA Sims ([id number]) [facility] ([facility]) [address] [place] [address] 86270 Protein [Mass/Vol] 8.2 g/dL Normal 6.4-8.2 [facility] Comment on above: Performed By: #### 2 4323-8 #### MIRANDA Sims ([id number]) [facility] ([facility]) [address] [place] [address] 17117 Sodium [Moles/Vol] 135 mmol/L Low 136-145 [facility] Comment on above: Performed By: #### 2 4323-8 #### MIRANDA Sims ([id number]) [facility] ([facility]) [address] [place] [address] 00571 Urea nitrogen [Mass/Vol] 15 mg/dL Normal 6-23 [facility] Comment on above: Performed By: #### 2 1472-8 #### MIRANDA Sims ([id number]) [facility] ([facility]) [address] [place] [address] 17164 ECG 12 leadOrdered By: Linda Rich on 10-31-2024 Atrial Rate 99 BPM [facility] Work Phone: P [place] 58 degrees [facility] Work Phone: [phone] P Offset 200 ms [facility] Work Phone: [phone] P Onset 148 ms [facility] Work Phone: [phone] PA Interval 156 ms [facility] Work Phone: Q Onset 226 ms [facility] Work Phone: [phone] QRS Count 16 beats [facility] Work Phone: [phone] QRS Duration 92 ms [facility] Work Phone: QT Interval 340 ms [facility] Work Phone: [phone] QTC Calculation(Bazett) 436 ms [facility] Work Phone: [phone] QTC Fredericia [address] [facility] Work Phone: [phone] R [place] 55 degrees [facility] Work Phone: [phone] T [place] 56 degrees [facility] Work Phone: [phone] T Offset 396 ms [facility] Work Phone: [phone] Ventricular Rate 99 BPM [facility] Work Phone: [phone] [facility] Work Phone: [phone] ECG 12 leadon 10-31-2024 Normal sinus rhythm Nonspecific ST abnormality Abnormal ECG No previous ECGs available See ED provider note for full interpretation and clinical correlation Confirmed by Linda Rich ([id number]) on 10/31/2024 7:19:36 PM Linda Madsen, INFANTRY INDIRECT FIRE [facility] - 10/31/2024 Normal sinus rhythm Nonspecific ST abnormality Abnormal ECG No previous ECGs available See ED provider note for full interpretation and clinical correlation Confirmed by Linda Rich ([id number]) on 10/31/2024 7:19:36 PM [facility] Work Phone: Ethanolon 10-31-2024 Ethanol [Mass/Vol] mg/dL NINF - 10 mg/dL [facility] Comment on above: For medical use only . Ethanol [Mass/Vol] mg/dL Normal <=10 [facility] Comment on above: Result Comment: For medical use only. Performed By: #### 5 643-2 ####MIRANDA Sims ([id number])[facility] ([facility])[address] [place] [address] Ethanol [Mass/Vol]on 025 Interpretation and review of laboratory results Normal [facility] Gas panel (BldV)on 5 Anion gap 4 (BldV) [Moles/Vol] 9 mmol/L Low 10.0 - 25.0 mmol/L [facility] Base excess Calc (BldV) [Moles/Vol] 2.7 mmol/L -2.0 - 3.0 mmol/L [facility] Calcium.ionized (BldV) [Moles/Vol] 1.23 mmol/L 1.10 - 1.33 mmol/L [facility] Chloride (BldV) [Moles/Vol] 99 mmol/L 98 - 107 mmol/L [facility] CO2 (BldV) [Partial pressure] 54 mm[Hg] High [facility] Glucose [Mass/Vol] 110 mg/dL High 74 - 99 mg/dL [facility] HCO3 (Bld) [Moles/Vol] 29.8 mmol/L High 22.0 - 26.0 mmol/L [facility] Hematocrit Est (Bld) [Volume fraction] 48 % 41.0 - 52.0 % [facility] Hemoglobin (Bld) [Mass/Vol] 16.1 g/dL 13.5 - 17.5 g/dL [facility] Inhaled oxygen concentration 21 % [facility] Interpretation and review of laboratory results Abnormal [facility] Lactate (BldV) [Moles/Vol] 1.3 mmol/L 0.4 - 2.0 mmol/L [facility] Oxygen (BldV) [Partial pressure] 24 mm[Hg] Low [facility] Oxygen saturation in Venous blood 37 % Low 45 - 75 % [facility] Oxyhemoglobin (BldV) [Mass fraction] 36.4 % Low 45.0 - 75.0 % [facility] pH (BldV) 7.35 [pH] 7.33 - 7.43 pH [facility] Potassium (BldV) [Moles/Vol] 4.6 mmol/L 3.5 - 5.3 mmol/L [facility] Sodium (BldV) [Moles/Vol] 133 mmol/L Low 136 - 145 mmol/L [facility] Anion gap 4 (BldV) [Moles/Vol] 9.0 mmol/L Low 10.0-25.0 [facility] Comment on above: Performed By: #### 2 4339-4 #### MIRANDA Sims ([id number]) [facility] ([facility]) [address] [place] [address] 60236 Base excess Calc (BldV) [Moles/Vol] 2.7 mmol/L Normal -2.0-3.0 [facility] Comment on above: Performed By: #### 2 4339-4 #### MIRANDA Sims ([id number]) [facility] ([facility]) [address] [place] [address] 94903 Calcium.ionized (BldV) [Moles/Vol] 1.23 mmol/L Normal 1.10-1.33 [facility] Comment on above: Performed By: #### 2 4339-4 #### MIRANDA Sims ([id number]) [facility] ([facility]) [address] [place] [address] 37729 Chloride (BldV) [Moles/Vol] 99 mmol/L Normal 98-107 [facility] Comment on above: Performed By: #### 2 4339-4 #### MIRANDA Sims ([id number]) [facility] ([facility]) [address] [place] [address] 40574 CO2 (BldV) [Partial pressure] 54 mm Hg High 41-51 [facility] Comment on above: Performed By: #### 2 4339-4 #### MIRANDA Sims ([id number]) [facility] ([facility]) [address] [place] [address] 64950 Glucose [Mass/Vol] 110 mg/dL High 74-99 [facility] Comment on above: Performed By: #### 2 4339-4 #### MIRANDA Sims ([id number]) [facility] ([facility]) [address] [place] [address] 96922 HCO3 (Bld) [Moles/Vol] 29.8 mmol/L High 22.0-26.0 [facility] Comment on above: Performed By: #### 2 4339-4 #### MIRANDA Sims ([id number]) [facility] ([facility]) [address] [place] [address] 08308 Hematocrit Est (Bld) [Volume fraction] 48.0 % Normal 41.0-52.0 [facility] Comment on above: Performed By: #### 2 4339-4 #### MIRANDA Sims ([id number]) [facility] ([facility]) [address] [place] [address] 13486 Hemoglobin (Bld) [Mass/Vol] 16.1 g/dL Normal 13.5-17.5 [facility] Comment on above: Performed By: #### 2 4339-4 #### MIRANDA Sims ([id number]) [facility] ([facility]) [address] [place] [address] 20449 Inhaled oxygen concentration 21 % Normal [facility] Comment on above: Performed By: #### 2 4339-4 #### MIRANDA Sims ([id number]) [facility] ([facility]) [address] [place] [address] 45439 Lactate (BldV) [Moles/Vol] 1.3 mmol/L Normal 0.4-2.0 [facility] Comment on above: Performed By: #### 2 4339-4 #### MIRANDA Sims ([id number]) [facility] ([facility]) [address] [place] [address] 05112 Oxygen (BldV) [Partial pressure] 24 mm Hg Low 35-45 [facility] Comment on above: Performed By: #### 2 4339-4 #### MIRANDA Sims ([id number]) [facility] ([facility]) [address] [place] [address] 36811 Oxygen saturation in Venous blood 37 % Low 45-75 [facility] Comment on above: Performed By: #### 2 4339-4 #### MIRANDA Sims ([id number]) [facility] ([facility]) [address] [place] [address] 25934 Oxyhemoglobin (BldV) [Mass fraction] 36.4 % Low 45.0-75.0 [facility] Comment on above: Performed By: #### 2 4339-4 #### MIRANDA Sims ([id number]) [facility] ([facility]) [address] [place] [address] 75889 pH (BldV) 7.35 [pH] Normal 7.33-7.43 [facility] Comment on above: Performed By: #### 2 4339-4 #### MIRANDA Sims ([id number]) [facility] ([facility]) [address] [place] [address] 66509 Potassium (BldV) [Moles/Vol] 4.6 mmol/L Normal 3.5-5.3 [facility] Comment on above: Performed By: #### 2 4339-4 #### MIRANDA Sims ([id number]) [facility] ([facility]) [address] [place] [address] 75520 Sodium (BldV) [Moles/Vol] 133 mmol/L Low 136-145 [facility] Comment on above: Performed By: #### 2 4339-4 #### MIRANDA Sims ([id number]) [facility] ([facility]) [address] [place] [id number] Glucose Test strip manual (B ld) [Mass/Vol]on 10-31-2024 Glucose [Mass/Vol] 108 mg/dL High 74 - 99 mg/dL [facility] Interpretation and review of laboratory results Abnormal [facility] Glucose [Mass/Vol] 108 mg/dL High 74-99 [facility] Comment on above: Performed By: #### 2 341-6 #### MIRANDA Sims ([id number]) [facility] ([facility]) [address] [place] [phone] Magnesiumon 10-31-2024 Magnesium [Mass/Vol] 2.37 mg/dL 1.60 - 2.40 mg/dL [facility] Magnesium [Mass/Vol] 2.37 mg/dL Normal 1.60-2.40 [facility] Comment on above: Performed By: #### 1 9123-9 #### MIRANDA Sims ([id number]) [facility] ([facility]) [address] [place] [address] Magnesium [Mass/Vol]on 10-31 Interpretation and review of laboratory results Normal [facility] No Panel Informationon 10-31 Radiology Study observation (narrative) [facility] Work Phone: [facility] Comminuted distal fibular fracture with additional medial malleolar avulsion injury. Suspected medial clear space widening. No evidence of syndesmotic widening. MACRO: None Signed by: Bryson Fam 10/31/2024 6:41 PM Dictation workstation: [id number] Interpreted By: Bryson Fam, STUDY: XR TIBIA FIBULA RIGHT 2 VIEWS; XR ANKLE RIGHT 3+ VIEWS; XR KNEE RIGHT 4+ VIEWS; ; 10/31/2024 6:31 pm; 10/31/2024 6:32 pm INDICATION: Signs/Symptoms:pain after injury; Signs/Symptoms:r/o fx. COMPARISON: None. ACCESSION NUMBER(S): [id number]; [id number]; [id number] ORDERING CLINICIAN: NOAH STUART FINDINGS: Four views [...] injury; Signs/Symptoms:r/o fx. COMPARISON: None. ACCESSION NUMBER(S): [id number]; [id number]; [id number] ORDERING CLINICIAN: NOAH COLVIN; IKE STUART FINDINGS: [...] Bryson Fam 10/31/2024 6:41 PM Dictation workstation: [id number] [facility] Work Phone: Radiology Study observation (narrative) [facility] Work Phone: No Panel InformationOrdered By: Bryson Fam on 10-31-2024 [facility] Work Phone: PT and aPTT panel Coag (PPP) on 10-31-2024 aPTT Coag (PPP) [Time] 26 s [facility] INR Coag (PPP) [Relative time] 1 {INR} 0.9 - 1.1 [facility] Interpretation and review of laboratory results Normal [facility] PT Coag (PPP) [Time] 11 s [facility] The APTT is no longe r used for monitoring Unfractionated Heparin Therapy. For monitoring Heparin Therapy, use the Heparin Assay. [facility] aPTT Coag (PPP) [Time] 26 s Normal 26-36 Un [facility] Comment on above: Order Comment: The A PTT is no longer used for monitoring Unfractionated Heparin Therapy. For monitoring Heparin Therapy, use the Heparin Assay. Performed By: #### 3 4529-8 ####MIRANDA Sims ([id number])[facility] ([facility])[address] [place] [address] INR Coag (PPP) [Relative time] 1.0 Normal 0.9-1.1 [facility] Comment on above: Order Comment: The A PTT is no longer used for monitoring Unfractionated Heparin Therapy. For monitoring Heparin Therapy, use the Heparin Assay. Performed By: #### 3 4529-8 ####MIRANDA Sims ([id number])[facility] ([facility])[address] [place] [address] PT Coag (PPP) [Time] 11.0 s Normal 9.8-12.4 [facility] Comment on above: Order Comment: The A PTT is no longer used for monitoring Unfractionated Heparin Therapy. For monitoring Heparin Therapy, use the Heparin Assay. Performed By: #### 3 4529-8 ####MIRANDA CARDTZBETTYE Sims ([id number])[facility] ([facility])[address] [place] [address] Tropinin I.cardiac panel Hig h sensitivity methodon 10-31-2024 Interpretation and review of laboratory results Normal [facility] Less than 99th percentile of normal [...] performed using a different testing methodology at [facility] than at other [facility]. Direct result comparisons should only be made within the same method. [facility] Interpretation and review of laboratory results Normal [facility] Less than 99th percentile of normal [...] performed using a different testing methodology at [facility] than at other [facility]. Direct result comparisons should only be made within the same method. [facility] Troponin I, High Sensitivity , Initialon 10-31-2024 Tropinin I.cardiac panel High sensitivity method ng/L 0 - 53 ng/L [facility] Troponin I.cardiac panelon 0 10-31-2024 Tropinin I.cardiac panel High sensitivity method <3 Normal 0-53 [facility] Comment on above: Order Comment: [...] is performed using a differenttesting methodology at [facility] than at [facility]. Direct result comparisons should onlybe made within the same method. Performed By: #### 8 9577-1 ####MIRANDA Sims ([id number])[facility] ([facility])[address] [place] [address] Tropinin I.cardiac panel High sensitivity method <3 Normal 0-53 [facility] Comment on above: Order Comment: [...] performed using a different testing methodology at [facility] than at other [facility]. Direct result comparisons should only be made within the same method. Performed By: #### 8 9577-1 #### MIRANDA Sims ([id number]) [facility] ([facility]) [address] [place] [address] Troponin, High Sensitivity, 1 Houron 10-31-2024 Tropinin I.cardiac panel High sensitivity method ng/L 0 - 53 ng/L [facility] XR ANKLE RIGHT 3+ VIEWSon XR ANKLE RIGHT 3+ VIEWS Interpreted By: Julián Mendez and Ritchie Brandon STUDY: XR ANKLE RIGHT 3+ VIEWS; ; 10/31/2024 9:38 pm INDICATION: Signs/Symptoms:post reduction. COMPARISON: Radiograph of the right ankle 10/31/2024, 6:32 p.m.. ACCESSION NUMBER(S): [id number] ORDERING CLINICIAN: NOAH COLVIN TECHNIQUE: Three views [...] Horacio Loera. This study was interpreted at [facility], [place], [place]. MACRO: None Signed by: Julián Mendez 10/31/2024 10:25 PM Dictation workstation: [id number] [facility] XR ANKLE RIGHT 3+ VIEWS Interpreted By: Bryson Fam, STUDY: XR TIBIA FIBULA RIGHT 2 VIEWS; XR ANKLE RIGHT 3+ VIEWS; XR KNEE RIGHT 4+ VIEWS; ; 10/31/2024 6:31 pm; 10/31/2024 6:32 pm INDICATION: Signs/Symptoms:pain after injury; Signs/Symptoms:r/o fx. COMPARISON: None. ACCESSION NUMBER(S): [id number]; [id number]; [id number] ORDERING CLINICIAN: NOAH STUART FINDINGS: Four views [...] Bryson Fam 10/31/2024 6:41 PM Dictation workstation: [id number] [facility] XR Ankle - right 3 Viewson 0 10-31-2024 *Comminuted fibula fracture with similar alignment compared to prior imaging. Previously described medial malleolus avulsion fracture is not well visualized, likely obscured by overlying cast material. I personally reviewed the images/study and I agree with the findings as stated by resident Horacio Loera. This study was interpreted at [place], [place]. MACRO: None Signed by: Julián Mendez 10/31/2024 10:25 PM Dictation workstation: [id number] MMODAL Interpreted By: Julián Mendez and Ritchie Brandon STUDY: XR ANKLE RIGHT 3+ VIEWS; ; 10/31/2024 9:38 pm INDICATION: Signs/Symptoms:post reduction. COMPARISON: Radiograph of the right ankle 10/31/2024, 6:32 p.m.. ACCESSION NUMBER(S): [id number] ORDERING CLINICIAN: NOAH COLVIN TECHNIQUE: Three views [...] right ankle 10/31/2024, 6:32 p.m.. ACCESSION NUMBER(S): [id number] ORDERING CLINICIAN: NOAH COLVIN TECHNIQUE: Three views [...] Horacio Loera. This study was interpreted at [place], [place]. MACRO: None Signed by: Julián Mendez 10/31/2024 10:25 PM Dictation workstation: [id number] [facility] Work Phone: Radiology Study observation (narrative) [facility] Work Phone: XR Ankle - right 3 ViewsOrde red By: Julián Mendez on 10-31-2024 [facility] Work Phone: XR CHEST 1 VIEWon 10-31-2024 XR CHEST 1 VIEW Interpreted By: Bryson Fam, STUDY: XR CHEST 1 VIEW; 10/31/2024 6:32 pm INDICATION: Signs/Symptoms:preop. COMPARISON: None. ACCESSION NUMBER(S): [id number] ORDERING CLINICIAN: IKE STUART FINDINGS: AP radiograph of the chest was provided. CARDIOMEDIASTINAL SILHOUETTE: Cardiomediastinal silhouette is normal in size and configuration. LUNGS: No focal consolidation, pleural effusion, or pneumothorax. ABDOMEN: No remarkable upper abdominal findings. BONES: No acute osseous changes. IMPRESSION: 1. No evidence of acute cardiopulmonary process. MACRO: None Signed by: Bryson Fam 10/31/2024 6:41 PM Dictation workstation: [id number] [facility] XR Chest Single viewon 10-31 1. No evidence of acute cardiopulmonary process. MACRO: None Signed by: Bryson Fam 10/31/2024 6:41 PM Dictation workstation: [id number] MMODAL Interpreted By: Bryson Fam, STUDY: XR CHEST 1 VIEW; 10/31/2024 6:32 pm INDICATION: Signs/Symptoms:preop. COMPARISON: None. ACCESSION NUMBER(S): [id number] ORDERING CLINICIAN: IKE STUART FINDINGS: AP radiograph [...] pm INDICATION: Signs/Symptoms:preop. COMPARISON: None. ACCESSION NUMBER(S): [id number] ORDERING CLINICIAN: IKE STUART FINDINGS: AP radiograph of the chest was provided. CARDIOMEDIASTINAL SILHOUETTE: Cardiomediastinal silhouette is normal in size and configuration. LUNGS: No focal consolidation, pleural effusion, or pneumothorax. ABDOMEN: No remarkable upper abdominal findings. BONES: No acute osseous changes. IMPRESSION: 1. No evidence of acute cardiopulmonary process. MACRO: None Signed by: Bryson Fam 10/31/2024 6:41 PM Dictation workstation: [id number] [facility] Work Phone: [facility] Work Phone: XR KNEE RIGHT 4+ VIEWSon XR KNEE RIGHT 4+ VIEWS Interpreted By: Bryson Fam, STUDY: XR TIBIA FIBULA RIGHT 2 VIEWS; XR ANKLE RIGHT 3+ VIEWS; XR KNEE RIGHT 4+ VIEWS; ; 10/31/2024 6:31 pm; 10/31/2024 6:32 pm INDICATION: Signs/Symptoms:pain after injury; Signs/Symptoms:r/o fx. COMPARISON: None. ACCESSION NUMBER(S): [id number]; [id number]; [id number] ORDERING CLINICIAN: NOAH STUART FINDINGS: Four views [...] Bryson Fam 10/31/2024 6:41 PM Dictation workstation: [id number] [facility] XR TIBIA FIBULA RIGHT 2 VIEW Son 10-31-2024 XR TIBIA FIBULA RIGHT 2 VIEWS Interpreted By: Bryson Fam, STUDY: XR TIBIA FIBULA RIGHT 2 VIEWS; XR ANKLE RIGHT 3+ VIEWS; XR KNEE RIGHT 4+ VIEWS; ; 10/31/2024 6:31 pm; 10/31/2024 6:32 pm INDICATION: Signs/Symptoms:pain after injury; Signs/Symptoms:r/o fx. COMPARISON: None. ACCESSION NUMBER(S): [id number]; [id number]; [id number] ORDERING CLINICIAN: NOAH COLVIN; IKE STUART FINDINGS: [...] Bryson Fam 10/31/2024 6:41 PM Dictation workstation: [id number] [facility] XR Tibia and Fibula - right 2 Viewson 10-31-2024 Radiology Study observation (narrative) [facility] Work Phone: Chest PA and Lateralon 03-27 Chest PA and Lateral [facility] [address] [place] [address] Chest PA and Lateral MR#: [id number] Acct: [id number] Name: JAVED REYES Rep #: [id number] : 1995 M 28 From: Naomi dillon MD PCP: Care Physician,No Primary Status: REG ER Study: Chest PA and Lateral Date of Exam: 03/27/24 Exam# [id number] Ordering Dr: German Zhang DO [id number] HISTORY: Cough. TECHNIQUE: XR Chest 2 Views. [...] German Zhang DO; No Primary Care Physician Athletic Events Scorer: Signed Normal [facility] Emergency Department Summary on 03-27-2024 Emergency Department Summary [facility] Medical Records Department [address] [place] [address] Emergency Department Summary 03/27/24 MR#: [id number] Acct: [id number] Name: JAVED REYES Rep #: [id number] : 1995 28 From: German Zhang DO [...] Allergic/Immunologic ED: Denies mouth swelling or urticaria [facility] Medical History (Updated 03/27/24 @ 13:18 by [...] Zithromax. Pa (more content not included)... Normal [facility] M100.677on 03-27-2024 M100.677 Negative Normal [facility] Comment on above: Performed By: #### M 100.677, M100.678 #### [facility] [address] [place], [place], [address] M100.678on 03-27-2024 M100.678 Pending SARS-CoV-2 (COVID 19) Negative INFLUENZA A Negative INFLUENZA B Negative RSV PCR Negative [facility] Comment on above: Performed By: #### M 100.677, M100.678 #### [facility] [address] [place], [place], [address] ED NOTEon 09-02-2023 ED NOTE HNO ID: [id number] Author: FLAQUITO CHOI RN Service: Emergency Medicine [...] September 03, 2023 TIME: 8:32 PM Normal [facility] ED PROV NOTEon 09-02-2023 ED PROV NOTE HNO ID: [id number] Author: LIBERTAD SALES MD Service: Emergency Medicine [...] sinusitis, unspecified location COVID-19 test performed per [facility] policy for suspected COVID community exposure. MDM [...] last few days. 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 Normal [facility] FLUABV+SARS-CoV-2+RSV Pnl Re sp TOMAS+probeon 09-02-2023 FLUABV+SARS-CoV-2+RSV Pnl Resp TOMAS+probe COVID 19 RESULT: Not detected The method used is RT-PCR or an equivalent NAAT method. Reference Range(the expected result in uninfected individuals): Not detected INFLUENZA A PCR: Not detected INFLUENZA B PCR: Not detected RSV PCR: Not detected Normal [facility] Comment on above: Performed By: #### 9 5941-1 #### [facility] CLIA [id number] [address] [place] [address] OF IRINA Vital Signs Date Time Vital Sign Value Performing Clinician Facility 11-06-2024 15:30-0400 Body temperature 97.3 [degF] Noah Colvin MD Work Phone: [facility] 11-06-2024 15:30-0400 Diastolic blood pressure 75 mm[Hg] Noah Colvin MD Work Phone: [facility] 11-06-2024 15:30-0400 Heart rate 70 /min Noah Colvin MD Work Phone: [facility] 11-06-2024 15:30-0400 Respiratory rate 15 /min Noah Colvin MD Work Phone: [facility] 11-06-2024 15:30-0400 SaO2% (BldA) [Mass fraction] 99 % Noah Colvin MD Work Phone: [facility] 11-06-2024 15:30-0400 Systolic blood pressure 109 mm[Hg] Noah Colvin MD Work Phone: [facility] 10-31-2024 19:12-0400 Body temperature 37 Noah Colvin MD Work Phone: [facility] 10-31-2024 19:05-0400 Body temperature 37.0 degrees Celsius [facility] Comment on above: Performed By: #### [id number] #### MIRANDA Sims ([id number]) [facility] ([facility]) [address] [place] [address] 10-31-2024 16:43-0400 Body height 172.7 cm Noah Colvin MD Work Phone: [facility] 10-31-2024 16:43-0400 Body mass index (BMI) [Ratio] 39.53 kg/m2 Noah Colvin MD Work Phone: [facility] 10-31-2024 16:43-0400 Body weight 117.94 kg Noah Colvin MD Work Phone: [facility] 02-23-2024 21:49-0400 Blood Pressure Location RAQUEL LOAIZA MD [facility] 02-23-2024 21:49-0400 Blood Pressure Method RAQUEL LOAIZA MD [facility] 02-23-2024 21:49-0400 Body height 172.7 cm RAQUEL LOAIZA MD [facility] 02-23-2024 21:49-0400 Body temperature 96.98 [degF] RAQUEL LOAIZA MD [facility] 02-23-2024 21:49-0400 Body weight 104.5 kg RAQUEL LOAIZA MD [facility] 02-23-2024 21:49-0400 Diastolic Blood Pressure Non-Invasive 78 mm[Hg] RAQUEL LOAIZA MD [facility] 02-23-2024 21:49-0400 Heart rate 98 /min RAQUEL LOAIZA MD [facility] 02-23-2024 21:49-0400 Respiratory rate 16 /min RAQUEL LOAIZA MD [facility] 02-23-2024 21:49-0400 Systolic Blood Pressure Non-Invasive 130 mm[Hg] RAQUEL LOAIZA MD [facility] Encounters Encounter Date Encounter Type Care Provider Facility Start: 11-07-2024 ambulatory Shabnam Meek ty:[facility] Start: 10-31-2024 End: 11-06-2024 Evaluation and management of inpatient Noah Colvin MD Work Phone: [facility] Candy Byrne 8 Comment on above: Displaced comminuted fracture of shaft of right fibula, initial encounter for closed fracture (Primary Dx); Alcohol use; Insomnia, unspecified type; Cigarette smoker; Drug-induced constipation Start: 10-31-2024 End: 10-31-2024 Emergency department patient visit [facility] Start: 03-27-2024 End: 03-27-2024 Emergency department patient visit German Zhang Facility:[facility] Start: 02-23-2024 End: 02-23-2024 Emergency department patient visit RAQUEL LOAIZA MD [facility] Start: 09-02-2023 Emergency department patient visit Facility:[facility] Procedures Date Procedure Procedure Detail [...] f 2) Zoster Vaccines (1 of 2) [facility] Start: 01-28-2025 Influenza vaccination Influenz a Vaccine (Season Ended) [facility] Start: 11-20-2024 End: 11-20-2024 Patient encounter procedure 11/20/2024 1:00 PM EDT Office Visit [facility] [id number] [facility] [address] [place] [address] Toña Castillo PA-C [address] Department of Orthopedics [place] [id number] [facility] Start: 01-29-2024 COVID-19 Vaccine ( season) COVID-19 Vaccine ( season) [facility] Start: 07-13-2020 Pneumococcal Vaccine : Pediatrics and At-Risk Adult Patients (2 of 2 - PCV) Pneumococcal Vaccine: Pediatrics and At-Risk Adult Patients (2 of 2 - PCV) [facility] Start: 2015 DTaP/Tdap/Td Vaccine s (1 - Tdap) DTaP/Tdap/Td Vaccines (1 - Tdap) [facility] Start: 2012 Hepatitis B Vaccines (1 of 3 - 19+ 3-dose series) Hepatitis B Vaccines (1 of 3 - 19+ 3-dose series) [facility] Start: 2011 Hepatitis C screening Hepatitis C Sc eamon [facility] Start: 2006 Varicella vaccination Varicell a Vaccines (1 of 2 - 13+ 2-dose series) [facility] Start: 1994 MMR Vaccines (1 of 1 - Standard series) MMR Vaccines (1 of 1 - Standard series) [facility] Start: 1993 HIV screening HIV Screening [facility] Start: 1993 Lipid panel Lipid Panel [facility] Start: 1993 Yearly Adult Physical Yearly Adult P hysical [facility] Electrocardiogram, 12-lead PRN ACS symptoms Electrocardiogram, 12-lead PRN ACS symptoms ECG Routine As needed until discontinued starting 11/01/2024 [facility] Work Phone: Comment on above: As needed until disc ontinued starting 11/01/2024 End: 11-01-2024 Incentive spirometry Instruct Incentive spirometry Instruct Respiratory Care Routine Once for 1 Occurrences starting 11/01/2024 until 11/01/2024 [facility] Service Area Work Phone: Comment on above: Once for 1 Occurrenc es starting 11/01/2024 until 11/01/2024 Payers Date Payer Category Payer Medicaid MEDICAID [id number] 2024 Medicaid [id number] 2024 Self-pay 1997 Unknown [id number] 1995 Unknown [id number] 1995 Unknown [id number] 1995 Unknown [id number] Unknown [id number] Unknown [id number] Social History Date Type Detail Facility Start: 02-23-2024 Tobacco smoking status Light tobacco smoker (finding) [facility] Start: 1995 Sex Assigned At Male [facility] Start: 11-01-2024 Tobacco smoking status NHIS Smokes tobacco daily [facility] of tobacco use [facility] Start: 11-01-2024 Tobacco use and exposure Smokeless tobacco non-user [facility] Work Phone: Start: 11-01-2024 Alcoholic beverage intake Current drinker of alcohol (finding) [facility] Work Phone: Start: 11-01-2024 End: 11-02-2024 History of Social function [facility] Start: 11-01-2024 End: 11-02-2024 [facility] [employer] [facility] Has the [employer], [employer], [employer], or water company threatened to shut off services in your home in past 12Mo Yes [facility] Within the last year , have you been afraid of your partner or ex-partner? No [facility] Work Phone: How often to you hav e a drink containing alcohol? 4 or more times a week [facility] Work Phone: How many standard dr inks containing alcohol do you have on a typical day? 7 to 9 [facility] Work Phone: How often do you hav e 6 or more drinks on 1 occasion? Weekly [facility] Work Phone: How hard is it for y ou to pay for the very basics like food, housing, medical care, and heating Not very hard [facility] (I/We) worried pablo er (my/our) food would run out before (I/we) got money to buy more. Often true [facility] Work Phone: In the past 12 month s, has lack of transportation kept you from medical appointments or from getting medications? No [facility] Work Phone: Start: 10-31-2024 Gender identity Identifies as male gender (finding) [facility] Work Phone: Start: 10-22-2024 End: 11-01-2024 Exposure to SARS-CoV-2 (event) Not sure [facility] Work Phone: Medical Equipment Procedure Code Equipment Code Equipment Origin al Text Equipment Identifier Dates Device, Syndemos is Fixation, Speonk Synchfix P5 - [id number] Start: 11-01-2024 Device, Syndemos is Fixation, Speonk Synchfix P5 - [id number] Start: 11-01-2024 Plate, Fibula, Distal Lateral, 2.7/3.5mm 137mm 8h, Right - [id number] Start: 11-01-2024 Screw, Cortex 2. 7mm, T8, 20mm - [id number] Start: 11-01-2024 Screw, Cortex 2. 7mm, T8, 16mm - [id number] Start: 11-01-2024 Screw, Cortex 2. 7mm, T8, 22mm - [id number] Start: 11-01-2024 Screw, Cory 3.5 X 14 Ti - [id number] Start: 11-01-2024 Screw, Cory 3.5 X 16 Ti - [id number] Start: 11-01-2024 Screw, Cory 3.5 X 18 Ti - [id number] Start: 11-01-2024 Screw, Locking, 2.7mm, T8, 8mm - [id number] Start: 11-01-2024 Screw, Locking, 2.7mm, T8, 12mm - [id number] Start: 11-01-2024 Screw, Locking, 2.7mm, T8, 16mm - [id number] Start: 11-01-2024 Functional Status Date Assessment Result Facility 11-01-2024 Total score [AUDIT-C] 025 6:42 PM EDT Emily Fernandez RN [facility] Work Phone: 11-01-2024 Patient Health Questionnaire 2 item (PHQ-2) [Reported] [facility] Work Phone: 10-31-2024 [place] - suicide s everity rating scale screener - recent [C-SSRS] [facility] Work Phone: 02-23-2024 Functional Status Assistive Device None A [facility] 02-23-2024 Functional Status Standard Safet y ID band on, Allergy Band on, Call device within reach, Bed in low position, Wheels locked, personal items within reach, Bedside Cart Locked, Visitor at bedside [facility] Work Phone: Mental Status Date Assessment Result Facility 02-23-2024 Mental Status Orientation Oriented x 4 [facility] 02-23-2024 Mental Status [facility] Clinical Notes 02-23-2024 to 11-06-2024 Enoch Jean-Baptiste RN - 11/06/2024 4:19 PM Nitish Jean-Baptiste RN - 11/06/2024 4:19 PM EDJessica Fitzgerald PA-C - 11/06/2024 1:48 PM EDTCare Plan - Enoch Jean-Baptiste RN - 11/06/2024 11:26 AM EDT Note Date & Type Note Facility 11-06-2024 Nurse Note Patient has been discharged to [facility] via community care ambulance. Vitals stable, all IV's removed and after visit summary reviewed with patient. [facility] 11-06-2024 Nurse Note Patient has been discharged to [facility] via community care ambulance. Vitals stable, all IV's removed and after visit summary reviewed with patient. documented in this encounter [facility] Work Phone: 11-06-2024 Hospital course Narrative [...] cleared for OR by trauma. Admitted to [facility]. Taken to OR on 11/01 for R [...] Center 11/20/2024 1:00 PM Toña Castillo PA-C [id number] Academic Anna Fitzgerald PA-C documented in this encounter [facility] Work Phone: 11-06-2024 Plan of care note The patient's goals for the shift include The clinical goals for the shift include remain free from falls [facility] Work Phone: 11-06-2024 Miscellaneous Notes The patient's goals for the shift include The clinical goals for the shift include remain free from falls The patient's goals for the shift include The clinical goals for the shift include pain control CHW met with patient at bedside, Patient stated that he is interested in community resources in [facility], Patient stated he received out to a facility for rehab [place] near his area after discharge. CHW provided a [facility] resources to assist with food housing financial assistance etc, [employer] for guidances and support, Patient mentioned applying for disability. CHW provided disability resources information, including steps on how to apply online. CHW also provided the rehab center patient is interested contact information. Community Resource Name: Phone Number: Staff Member: Discussed the following topics on behalf of the patient: [] Behavioral Health Assistance [] Case Management [] Chief Bank Examiner Assistance [] Digital Equity Assistance [] Dental [...] cleared for OR by trauma. Admitted to [facility]. Taken to OR on 11/01 for R [...] will sign off. documented in this encounter [facility] Work Phone: 11-06-2024 History of Presen t illness Narrative Transitional Youth Career Specialist Note: Patient discussed with medical team (trauma PA), per trauma team patient is medically ready. Discharge dispo: Plan for patient to discharge to SNF. TCC met with patient introduced self and role to discuss discharge plan. TCC informed patient that he was accepted by [facility] and able to discharge to facility. Patient expressed wanting to discharge [facility] stating he wants to be in [facility] near his friends. TCC informed patient there has not been an official acceptance from [facility]. Patient requested for TCC to follow up with facility stating he spoke with facilities admit team who stated facility is able to accept patient. TCC sent updated clinicals to patient's FOC and requested update on acceptance. Yeny Tomas RN BSN Transitional Youth Career Specialist [facility] - PROGRESS NOTE Patient [...] syndesmotic fixation 11/01 - NWB RLE in [facility] - follow up [address] [...] Trauma, Critical Care, Acute Care Surgery Floor: 77972 TSICU: [id number] CHIEF COMPLAINT / OVERNIGHT EVENTS: No acute [...] results, and imaging pertinent for today's encounter. [facility] - PROGRESS NOTE Patient [...] syndesmotic fixation 11/01 - NWB RLE in [facility] - follow up [address] [...] Trauma, Critical Care, Acute Care Surgery Floor: 95864 TSICU: [id number] CHIEF COMPLAINT / OVERNIGHT EVENTS: No acute [...] wiggle toes. Dorsi/plantarflexion 5/5 left lower extremity. Engineering And Scientific Programmer strength 5/5 bilaterally. sensation intact throughout all [...] or note in Epic regarding referral to [place]. Pt was updated regarding this agency for those who need medical care and in a housing crisis. Objective Physical Exam Assessment & Plan SW will continue to follow pt for a safe discharge. SW will update Trauma Team regarding pt's pain and feelings about needing PT. CHRISTINE VARGAS [facility] - PROGRESS NOTE Patient [...] syndesmotic fixation 11/01 - NWB RLE in [facility] - follow up [address] [...] Trauma, Critical Care, Acute Care Surgery Floor: 16946 TSICU: [id number] CHIEF COMPLAINT / OVERNIGHT EVENTS: No acute [...] lower extremity. Dorsi/plantarflexion 5/5 left lower extremity. Engineering And Scientific Programmer strength 5/5 bilaterally. sensation intact throughout all [...] were you homeless or living in a long term (including now)? Y Transportation Needs In the past 12 months, has lack of transportation kept you from medical appointments or from getting medications? no In the past 12 months, has lack of transportation kept you from meetings, work, or from getting things needed for daily living? No Patient Choice Provider Choice list and [facility] website (https://medicare.gov/care-comp are#search) for post-acute Quality and Resource Measure Data were provided and reviewed with: Patient PCP: NONE DME: none previously Pharmacy: none FREIGHT FORWARDER spoke with the patient on this date. Patient is homeless and hopping from couch to couch. Patient came in due to a displaced right fibula fracture. PT saw and recommended no needs. PT explained that patient is nonweight bearing to the right leg but is doing well on the walker. FREIGHT FORWARDER explained that this FREIGHT FORWARDER can order a walker for the patient. Patient explained that hed be interested in going to a physical rehab at discharge. FREIGHT FORWARDER explained that she could send out some referrals but that she cannot guarantee he will be accepted due to his age and the fact he doesn't have PT or OT needs. FREIGHT FORWARDER texted patient an [place] and SNF list. Patient also agreed to blanket referral. Patient confirmed he would find a place to say if he cannot go to SNF or [place]. Patient tested positive for cocaine and cannibis. FREIGHT FORWARDER spoke with him about it. 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 FREIGHT FORWARDER offered substance abuse resources or a referral to [facility], Patient explained that he doesn't not think he needs any resources and that he will just stop cold turkey. FREIGHT FORWARDER will continue to follow ADD 11/02/24 2:59PM FREIGHT FORWARDER attempted to call patient again to discuss alternate discharge plans besides SNF/[place] since patient doesn't have therapy needs. FREIGHT FORWARDER was unable to reach patient via phone. FREIGHT FORWARDER spoke with patient's PA about making a [facility] referral for the patient. FREIGHT FORWARDER will continue to follow LISA Mims, LAUREN-S Occupational Therapy Evaluation Patient Name: Javed Reyes Today's Date: 11/02/2024 Room: [address] [place] [address] Time Calculation Start Time: 930 Stop Time: [...] Adaptive Equipment: None Prior Function: Level of [place]: Independent with ADLs and functional transfers, Independent [...] Within Functional Limits, , and Outcome Measures: [facility] Daily Activity Putting on and taking [...] 10:35 AM Moshe Mclain OT Rehab Office: [phone] Physical Therapy Physical Therapy Evaluation Patient Name: Javed Reyes Department: [place] [id number] Room: [address] [place] [address] Today's Date: 11/02/2024 Time Calculation Start Time: [...] Prior Function Per Pt/Caregiver Report Level of [place]: Independent with ADLs and functional transfers ADL [...] compensate.) Comments/Distance (ft) 1: 20ft Outcome Measures: [facility] Basic Mobility Turning from your back [...] for closed fracture. Pharmacy reviewed the patient's bmvpm-lx-pdczazcmc medications and allergies for accuracy. Medications ADDED: None Medications CHANGED: None Medications REMOVED: None The list below reflects the updated PROCESS SAFETY ENGINEER list. None The list below reflects the [...] any prescription medications, vitamins, supplements or OTCs PROCESS SAFETY ENGINEER Anupam Ellis PharmD Transitions of Care Pharmacist 11/02/24 Secure Chat preferred If no response call [phone] or Buru Buru Rec [facility] - PROGRESS NOTE Patient [...] syndesmotic fixation 11/01 - NWB RLE in [facility] - follow up [address] [...] Trauma, Critical Care, Acute Care Surgery Floor: 33519 TSICU: [id number] CHIEF COMPLAINT / OVERNIGHT EVENTS: No acute [...] 2/5 strength. Dorsi/plantarflexion 5/5 left lower extremity. Engineering And Scientific Programmer strength 5/5 bilaterally. sensation intact throughout all [...] results, and imaging pertinent for today's encounter. [facility] - PROGRESS NOTE Patient [...] during my rounds. documented in this encounter [facility] Work Phone: 11-05-2024 Plan of care note The patient's goals for the shift include The clinical goals for the shift include pain control [facility] 11-05-2024 Plan of care note CHW met with patient at bedside, Patient stated that he is interested in community resources in [facility], Patient stated he received out to a facility for rehab [place] near his area after discharge. CHW provided a [facility] resources to assist with food housing financial assistance etc, [employer] for guidances and support, Patient mentioned applying for disability. CHW provided disability resources information, including steps on how to apply online. CHW also provided the rehab center patient is interested contact information. Community Resource Name: Phone Number: Staff Member: Discussed the following topics on behalf of the patient: [] Behavioral Health Assistance [] Case Management [] Chief Bank Examiner Assistance [] Digital Equity Assistance [] Dental [...] here] Next Steps: MARIA DE JESUS Foster [facility] 11-05-2024 Plan of care note The [...] appropriate for maintaining nutritional needs Outcome: Progressing [facility] 11-02-2024 Plan of care note The patient's goals for the shift include The clinical goals for the shift include Pt pain will be contolled [facility] 11-02-2024 Hospital Discharg e instructions [...] orthopaedic clinic appointment line phone number is [phone]. Please do not delay in calling to [...] become infected. Alternatively, you may blow a chair finisher, on the cool air setting, in order [...] an emergent evaluation. documented in this encounter [facility] Work Phone: 11-02-2024 Plan of care [...] line(s)/device(s) Turn/reposition every 2 hours/use positioning/transfer devices [facility] 11-01-2024 Hospital Note Formatting of t [...] cleared for OR by trauma. Admitted to [facility]. Taken to OR on 11/01 for R ankle ORIF. Patient to follow up outpatient in [address] Stuart. PT/OT worked with patient while admitted, pt discharged to SNF at time of discharge. Pt sent with scripts and meds continued, follow up appointments placed. Pain well controlled, eating and drinking well. Pt verbalized understanding of discharge instructions. [facility] Work Phone: 11-01-2024 seed corn manager production Note Neurology Final Assessment and Plan: # [...] provided per primary. Neurology will sign off. [facility] Work Phone: 11-01-2024 Consult note Formatting [...] was a few seconds to minutes the network specialist was present and at his side with [...] given rapid COORDINATION: In both upper extremities, ebesan-wgfg-cmwqmx was intact without dysmetria or overshoot. GAIT: [...] Horacio Loera. This study was interpreted at [place], [place]. MACRO: None. Signed by: Julián Mendez 11/01/2024 1:14 AM Dictation workstation: [id number] CT lumbar spine retrospective reconstruction protocol Result Date: 11/01/2024 CT CHEST/ABDOMEN/PELVIS: *No acute traumatic injury. CT THORACIC AND LUMBAR SPINE: *No acute fracture or traumatic malalignment. I personally reviewed the images/study and I agree with the findings as stated by resident Horacio Loera. This study was interpreted at [place], [place]. MACRO: None. Signed by: Julián Mendez 11/01/2024 1:14 AM Dictation workstation: [id number] CT thoracic spine retrospective reconstruction protocol Result Date: 11/01/2024 CT CHEST/ABDOMEN/PELVIS: *No acute traumatic injury. CT THORACIC AND LUMBAR SPINE: *No acute fracture or traumatic malalignment. I personally reviewed the images/study and I agree with the findings as stated by resident Horacio Loera. This study was interpreted at [place], [place]. MACRO: None. Signed by: Julián Mendez 11/01/2024 1:14 AM Dictation workstation: [id number] CT cervical spine wo IV contrast Result Date: 11/01/2024 1. No acute fracture or traumatic malalignment of the cervical spine. I personally reviewed the images/study and resident's interpretation and I agree with the findings as stated by Anisa Mena MD (resident radiologist). This study was analyzed and interpreted at [place], [place]. MACRO: None. Signed by: Julián Mendez 11/01/2024 1:04 AM Dictation workstation: [id number] CT ankle right wo IV contrast Result [...] Horacio Loera. This study was interpreted at [place], [place]. MACRO: None Signed by: Julián Mendez 10/31/2024 11:31 PM Dictation workstation: [id number] CT head wo IV contrast Result Date: 10/31/2024 CT HEAD: *No acute intracranial abnormality or calvarial fracture. I personally reviewed the images/study and I agree with the findings as stated by resident Horacio Loera. This study was interpreted at [place], [place]. MACRO: None. Signed by: Julián Mendez 10/31/2024 10:31 PM Dictation workstation: [id number] XR ankle right 3+ views Result Date: 10/31/2024 *Comminuted fibula fracture with similar alignment compared to prior imaging. Previously described medial malleolus avulsion fracture is not well visualized, likely obscured by overlying cast material. I personally reviewed the images/study and I agree with the findings as stated by resident Horacio Loera. This study was interpreted at [place], [place]. MACRO: None Signed by: Julián Mendez 10/31/2024 10:25 PM Dictation workstation: [id number] XR chest 1 view Result Date: 10/31/2024 1. No evidence of acute cardiopulmonary process. MACRO: None Signed by: Bryson Fam 10/31/2024 6:41 PM Dictation workstation: [id number] XR ankle right 3+ views Result Date: 10/31/2024 Comminuted distal fibular fracture with additional medial malleolar avulsion injury. Suspected medial clear space widening. No evidence of syndesmotic widening. MACRO: None Signed by: Bryson Fam 10/31/2024 6:41 PM Dictation workstation: [id number] XR tibia fibula right 2 views Result Date: 10/31/2024 Comminuted distal fibular fracture with additional medial malleolar avulsion injury. Suspected medial clear space widening. No evidence of syndesmotic widening. MACRO: None Signed by: Bryson Fam 10/31/2024 6:41 PM Dictation workstation: [id number] XR knee right 4+ views Result Date: 10/31/2024 Comminuted distal fibular fracture with additional medial malleolar avulsion injury. Suspected medial clear space widening. No evidence of syndesmotic widening. MACRO: None Signed by: Bryson Fam 10/31/2024 6:41 PM Dictation workstation: [id number] Cardiology, Vascular, and Other Imaging ECG 12 [...] to primary. Davis Curry DO Cosigned by Anuapm Mclean DO at 11/01/2024 6:32 PM EDT [...] note dated 11/01 for our detailed recommendations. [facility] Work Phone: 11-01-2024 Consult note Formatting [...] went to visit afterwards he stopped the [employer] for lunch and had 2 beers which [...] was a few seconds to minutes the network specialist was present and at his side with [...] given rapid COORDINATION: In both upper extremities, bvrcmy-zlft-ztfpdb was intact without dysmetria or overshoot. GAIT: [...] Horacio Loera. This study was interpreted at [place], [place]. MACRO: None. Signed by: Julián Mendez 11/01/2024 1:14 AM Dictation workstation: [id number] CT lumbar spine retrospective reconstruction protocol Result Date: 11/01/2024 CT CHEST/ABDOMEN/PELVIS: *No acute traumatic injury. CT THORACIC AND LUMBAR SPINE: *No acute fracture or traumatic malalignment. I personally reviewed the images/study and I agree with the findings as stated by resident Horacio Loera. This study was interpreted at [place], [place]. MACRO: None. Signed by: Julián Mendez 11/01/2024 1:14 AM Dictation workstation: [id number] CT thoracic spine retrospective reconstruction protocol Result Date: 11/01/2024 CT CHEST/ABDOMEN/PELVIS: *No acute traumatic injury. CT THORACIC AND LUMBAR SPINE: *No acute fracture or traumatic malalignment. I personally reviewed the images/study and I agree with the findings as stated by resident Horacio Loera. This study was interpreted at [place], [place]. MACRO: None. Signed by: Julián Mendez 11/01/2024 1:14 AM Dictation workstation: [id number] CT cervical spine wo IV contrast Result Date: 11/01/2024 1. No acute fracture or traumatic malalignment of the cervical spine. I personally reviewed the images/study and resident's interpretation and I agree with the findings as stated by Anisa Mena MD (resident radiologist). This study was analyzed and interpreted at [place], [place]. MACRO: None. Signed by: Julián Mendez 11/01/2024 1:04 AM Dictation workstation: [id number] CT ankle right wo IV contrast Result [...] Horacio Loera. This study was interpreted at [place], [place]. MACRO: None Signed by: Julián Mendez 10/31/2024 11:31 PM Dictation workstation: [id number] CT head wo IV contrast Result Date: 10/31/2024 CT HEAD: *No acute intracranial abnormality or calvarial fracture. I personally reviewed the images/study and I agree with the findings as stated by resident Horacio Loera. This study was interpreted at [place], [place]. MACRO: None. Signed by: Julián Mendez 10/31/2024 10:31 PM Dictation workstation: [id number] XR ankle right 3+ views Result Date: 10/31/2024 *Comminuted fibula fracture with similar alignment compared to prior imaging. Previously described medial malleolus avulsion fracture is not well visualized, likely obscured by overlying cast material. I personally reviewed the images/study and I agree with the findings as stated by resident Horacio Loera. This study was interpreted at [place], [place]. MACRO: None Signed by: Julián Mendez 10/31/2024 10:25 PM Dictation workstation: [id number] XR chest 1 view Result Date: 10/31/2024 1. No evidence of acute cardiopulmonary process. MACRO: None Signed by: Bryson Fam 10/31/2024 6:41 PM Dictation workstation: [id number] XR ankle right 3+ views Result Date: 10/31/2024 Comminuted distal fibular fracture with additional medial malleolar avulsion injury. Suspected medial clear space widening. No evidence of syndesmotic widening. MACRO: None Signed by: Bryson Fam 10/31/2024 6:41 PM Dictation workstation: [id number] XR tibia fibula right 2 views Result Date: 10/31/2024 Comminuted distal fibular fracture with additional medial malleolar avulsion injury. Suspected medial clear space widening. No evidence of syndesmotic widening. MACRO: None Signed by: Bryson Fam 10/31/2024 6:41 PM Dictation workstation: [id number] XR knee right 4+ views Result Date: 10/31/2024 Comminuted distal fibular fracture with additional medial malleolar avulsion injury. Suspected medial clear space widening. No evidence of syndesmotic widening. MACRO: None Signed by: Bryson Fam 10/31/2024 6:41 PM Dictation workstation: [id number] Cardiology, Vascular, and Other Imaging ECG 12 lead Result Date: 10/31/2024 Normal sinus rhythm Nonspecific ST abnormality Abnormal ECG No previous ECGs available See ED provider note for full interpretation and clinical correlation Confirmed by Linda Rich ([id number]) on 10/31/2024 7:19:36 PM Assessment/Plan # Acute [...] our detailed recommendations. documented in this encounter [facility] Work Phone: 10-31-2024 History and physical note [facility] - HISTORY AND PHYSICAL [...] provider name, time): ortho Dispo: Admit to [facility] for PT/OT Pt seen and discussed with attending Dr. Castellano Total face to face time spent with patient/family of 30 minutes, with >50% of the time spent discussing plan of care/management, counseling/educating on disease processes, explaining results of diagnostic testing. I have reviewed all medications, laboratory results, and imaging pertinent for today's encounter. 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 Appreciate neurology consult. Ganga Castellano DO [facility] Work Phone: 10-31-2024 History and physical note [facility] - HISTORY AND PHYSICAL [...] provider name, time): ortho Dispo: Admit to [facility] for PT/OT Pt seen and discussed with attending Dr. Castellano Total face to face time spent with patient/family of 30 minutes, with >50% of the time spent discussing plan of care/management, counseling/educating on disease processes, explaining results of diagnostic testing. I have reviewed all medications, laboratory results, and imaging pertinent for today's encounter. Edna Choudhary PA-C Trauma, Critical Care, Acute Care Surgery Floor: 51788 TSICU: [id number] ======== PAST MEDICAL HISTORY: PMH: denies, one [...] the right; 2+ on the left. 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: 5/5 on the right 5/5 on [...] Ganga Castellano DO documented in this encounter [facility] Work Phone: 10-31-2024 Emergency department Note [...] the patient's care: As documented above in [facility] The patient was discussed with the following consultants/services: None Care Considerations: As documented above in [facility] ED Course: ED Course as of 11/06/24442Oct [...] right ankle pain documented in this encounter [facility] Work Phone: 10-31-2024 Physician Emergency department [...] Castellano. Neurology has been consulted for seizures. Oden Coma Scale Score: 15 Differential diagnoses considered [...] None Care Considerations: As documented above in [facility] ED Course: ED Course as of 11/06/24442Oct [...] the documented findings. Noah Colvin MD 11/06/24442 [facility] Work Phone: 10-31-2024 Emergency department Triage [...] pt is also c/o right ankle pain [facility] Work Phone: 02-24-2024 Hospital Discharg e [...] until the rash is all gone. Use rveu-kaw-recpnyv antifungal powders or sprays on your feet [...] Pus draining from cracks in the skin [id number] [employer]. [address] [address]. All rights reserved. This information is not [...] Boil returns when you are at home [phone] [employer]. [address] [address]. All rights reserved. This information is not intended as a substitute for professional medical care. Always follow your healthcare professional's instructions. Follow Up Care 02/23/2024 21:43:59 With:Call KRISTA Rodriguez Pt. Refferral [phone] Address:Unknown When:2-4 days [facility] 02-23-2024 Note Discharge Instructions Thank you for allowing [place] to assist you with your healthcare needs. The following is important discharge information regarding your hospital visit. What to Do Next Instructions from Your Care Team No qualifying data available. Post Acute Orders No qualifying data available. You Need to Schedule the Following Appointments Follow Up with Call KRISTA Rodriguez Pt. Refferral [phone] When:Within 2-4 days Allergies Cats Dust Medications [...] may report side effects to FDA at [phone]. What other drugs will affect butenafine topical? Medicine used on the skin is not likely to be affected by other drugs you use, but many drugs can interact. Tell your doctor about all your current medicines, including prescription and ylnx-cco-hztpkqn medicines, vitamins, and herbal products. Where can I get more information? Your doctor or pharmacist can provide more information about butenafine topical. Remember, keep this and all other medicines out of the reach of children, never share your medicines with others, and use this medication only for the indication prescribed. Every effort has been made to ensure that the information provided by [employer]. ('[employer]') is accurate, up-to-date, and complete, but no guarantee is made to that effect. Drug information contained herein may be time sensitive. [employer] information has been compiled for use by healthcare practitioners and consumers in the [place] and therefore [employer] does not warrant that uses outside of the [place] are appropriate, unless specifically indicated otherwise. [employer] drug information does not endorse drugs, diagnose patients or recommend therapy. [employer] drug information is an informational resource designed [...] effective or appropriate for any given patient. [employer] does not assume any responsibility for any aspect of healthcare administered with the aid of information [employer] provides. The information contained herein is not intended to cover all possible uses, directions, precautions, warnings, drug interactions, allergic reactions, or adverse effects. If you have questions about the drugs you are taking, check with your doctor, nurse or pharmacist. Copyright 1602-3942 [employer]. Version: 5.01. Revision Date: 08/04/2023. cephalexin (sef [...] may report side effects to FDA at 6-781-DEE-2044. What other drugs will affect cephalexin? Tell your doctor about all your other medicines, especially: metformin; or probenecid. This list is not complete. Other drugs may affect cephalexin, including prescription and gkxt-qph-rljqhfk medicines, vitamins, and herbal products. Not all [...] to ensure that the information provided by [employer] is accurate, up-to-date, and complete, but no guarantee is made to that effect. Drug information contained herein may be time sensitive. [employer] information has been compiled for use by healthcare practitioners and consumers in the [place] and therefore [employer] does not warrant that uses outside of the [place] are appropriate, unless specifically indicated otherwise. [employer] drug information does not endorse drugs, diagnose patients or recommend therapy. [employer] drug information is an informational resource designed [...] effective or appropriate for any given patient. [facility] does not assume any responsibility for any aspect of healthcare administered with the aid of information [facility] provides. The information contained herein is not intended to cover all possible uses, directions, precautions, warnings, drug interactions, allergic reactions, or adverse effects. If you have questions about the drugs you are taking, check with your doctor, nurse or pharmacist. Copyright 3390-8503 [facility] [employer]. Version: 04.29. Revision Date: 12/29/2022. doxycycline (oral/injection) (DOX mauricio VERASEdgar demetrius) Acticlate, Adoxa, Alodox, Avidoxy, Doryx, Doryx MPC, Lymepak, Mondoxyne NL, Monodox, Morgidox, Morgidox 2t397px, Morgidox 3m554ph, Okebo, Oracea, Targadox, Vibramycin, Vibramycin Monohydrate What [...] or life-threatening conditions such as anthrax or Sumter spotted fever. The benefit of treating a [...] may report side effects to FDA at 1-976-OFN-8207. What other drugs will affect doxycycline? Sometimes it is not safe to use certain medications at the same time. Some drugs can affect your blood levels of other drugs you take, which may increase side effects or make the medications less effective. Other drugs may affect doxycycline, including prescription and tyzt-doh-pwognew medicines, vitamins, and herbal products. Tell your [...] to ensure that the information provided by [employer] is accurate, up-to-date, and complete, but no guarantee is made to that effect. Drug information contained herein may be time sensitive. [employer] information has been compiled for use by healthcare practitioners and consumers in the [place] and therefore [employer] does not warrant that uses outside of the [place] are appropriate, unless specifically indicated otherwise. [employer] drug information does not endorse drugs, diagnose patients or recommend therapy. [employer] drug information is an informational resource designed [...] effective or appropriate for any given patient. [facility] does not assume any responsibility for any aspect of healthcare administered with the aid of information [facility] provides. The information contained herein is not intended to cover all possible uses, directions, precautions, warnings, drug interactions, allergic reactions, or adverse effects. If you have questions about the drugs you are taking, check with your doctor, nurse or pharmacist. Copyright 5238-0361 [facility] [employer]. Version: 25.. Revision Date: 02/02/2023. Education Materials [...] until the rash is all gone. Use skwx-ryk-fclwlmd antifungal powders or sprays on your feet [...] Pus draining from cracks in the skin 1130-5092 [employer]. [address] [address]. All rights reserved. This information is not [...] Boil returns when you are at home 7714-0351 [employer]. [address] [place], [place] [address]. All rights reserved. This information is not intended as a substitute for professional medical care. Always follow your healthcare professional's instructions. Additional Information VACCINATE! IT SAVES LIVES! Members of the community who have not yet received the COVID-19 vaccine and would like to receive it can visit one of [facility] vaccine clinics. There are many vaccine clinic locations within the [facility]. For locations and available times, please visit www.[email or web address].[place] .gov/. It is important to note that some COVID mobile vaccine clinics are held outdoors and may be canceled in rainy or stormy conditions. To learn more about pediatric vaccinations (ages 5-11), we invite you to visit the [facility] webpage. [email or web address]/ pages/[email or web address]-[email or web address] [email or web address]-[email or web address] To learn more about the COVID-19 vaccine, we invite you to visit the CDC website for a list of frequently asked questions. https://www.cdc.gov/coronavirus /2019-ncov/vaccines/faq.html [facility] Access Instructions: Stay connected with your healthcare team and access your personal medical information anytime with the [facility] Patient [facility]. If you would like a full copy of your medical records please contact the [facility] Medical Records Department Tuesday through Tuesday between 8a.m. and 4:30p.m. Please follow the directions below to access the portal: 1.Access the email account you provided upon registration to the [facility].2.Look for an invitation email from [facility].3.Open the email and access the invitation link: Accept Invitation to [facility]4.Fill in the required collier to create your account. Sign into [email or web address] with your username and password that you [...] you will allow to register on the [facility] Patient Portal for access to your information. You can also access the [facility] Patient Portal on the [employer]. Simply click on Health Records under Health Data and then click on the [employer] logo. HOW TO SAFELY DISPOSE OF PRESCRIPTION [...] Call your local pharmacy or go to [email or web address] to find one close to you.3.Make use of household items: Use cat litter or old coffee grounds to dispose medications if other options are not available. Mix your drugs with these household products, seal them in an airtight container and throw it into the garbage. Call [facility]: [phone] to be sure your drugs can be [...] aware that I should contact my doctor. 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: Date/Time: Relationship to Patient: Witness Name/Signature: Date/Time: [facility] Evaluation + Plan note No data available for this section [facility] Evaluation note Diagnosis Displaced comminuted fracture [...] Obesity Obesity, unspecified documented in this encounter [facility] Work Phone: Summary Purpose Family History [...] DATE CREATED AUTHOR AUTHOR'S ORGANIZ ATION 02/29/2024 [facility] DATE CREATED AUTHOR AUTHOR'S ORGANIZ ATION 11/07/2024 [facility] DATE CREATED AUTHOR AUTHOR'S ORGANIZ ATION 11/09/2024 [facility] Reason for Visit (unrecogniz ed section and content) Reason Comments Syncope Ankle Pain Specialty Diagnoses / Procedures Referred By Toby t Referred To Contact Diagnoses Displaced comminuted fracture of shaft of right fibula, [place] [address] [place] [address] Phone: tel: fax: [facility] [address] [place] [address] Phone: tel: fax: Referral ID Status Reason Start Date Expiration Date Visits Re quested Visits Authorized [id number] 1 1 Scheduled Active and Recently Administ [...] Tue11/01/24 at 0900 0938 (Given - Provider: Uzile Ibarra RN) 0823 (Given - Provider: Enoch [...] Yes 0942 (Given - Provider: Uziel Ibarra RN)1810 (Given [...] Care Teams (unrecognized sec tion and content) 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 [employer] [facility]. provides no warranty or guarantee of the accuracy or completeness of information in this document.
[2024-11-12 09:28] LABS: Absolute Lymphocyte Count 2.46 X10^3/uL (0.83-4.51); Absolute Neutrophil Count 4.5 X10^3/uL (2.0-7.7); Basophil# 0.05 X10^3/uL; Basophil% 0.6 % (0-1); Eosinophil# 0.16 X10^3/uL; Hematocrit 39.9 % (40-54); Hemoglobin 13.4 g/dL (13.0-16.5); Lymphocyte # 2.46 X10^3/ul (0.83-4.51); Lymphocyte % 30.7 % (19-41); Mean Corp Hgb Conc 33.6 g/dL (32-36); Mean Corpuscular Hgb 30.1 pg (27.0-32.0); Mean Corpuscular Volume 89.7 fL (80-94); Mean Platelet Vol. 10.9 fl (6.2-12.0); Monocyte# 0.82 X10^3/uL; Monocyte% 10.2 % (0-10); NRBC Flagged by Analyzer 0 % (0-5); Neutrophil # 4.46 X10^3/uL (2.7-7.7); Neutrophil % 55.6 % (47-70); Platelet Count 224 K/mm3 (150-450); RBC Distribution Width CV 12.2 % (11.6-14.6); RBC Distribution Width SD 40.2 fl (35.1-43.9); Red Blood Count 4.45 M/mm3 (4.6-6.2)
[2024-11-12 10:00] LABS: Magnesium 2.2 mg/dL (1.5-2.2)
[2024-11-12 18:11] LABS: ALB/GLOB Ratio 1.4 RATIO (0.9-2.4); AST(SGOT) 25 U/L (<=37); Alanine Aminotransfer ALT/SGPT 46 U/L (<=46); Albumin, Serum 4.2 g/dL (3.5-5.0); Alkaline Phosphatase 70 U/L (40-129); Anion Gap 11 (5-15); BUN 18 mg/dL (4-19); BUN/Creat Ratio 24.3 RATIO (10-20); Calcium,Total 9.7 mg/dL (7.6-11.0); Carbon Dioxide 23.8 mmol/L (21.0-32.0); Chloride 103 mmol/L (98-108); Creatinine, Serum 0.74 mg/dL (0.70-1.20); EST Glomerular Filtration Rate 124 (>60); Globulin 2.9 g/dL (2.2-4.2); Glucose 98 mg/dL (70-99); Potassium 4.1 mmol/L (3.3-5.1); Protein, Total 7.1 g/dL (5.9-8.4); Sodium Level 138 mmol/L (133-145); Vitamin B12 647 pg/mL (180-914); Vitamin D,25 Hydroxy 16.1 ng/mL (30-100)
[2024-11-13 15:58] LABS: Total Bilirubin 0.17 mg/dL (0.00-1.30)
== END ==
LOC: OLS.SW 05:00
PROVIDERS: Visit Provider Internal Medicine
DX: R56.9 Unspecified convulsions (principal); Z91.81 History of falling; S82.61XD Displaced fracture of lateral malleolus of right fibula, subsequent encounter for closed fracture with routine healing; S82.51XD Displaced fracture of medial malleolus of right tibia, subsequent encounter for closed fracture with routine healing
CPT/HCPCS: 36415; 80053; 80184; 82306; 82607; 83735; 85025

== ENCOUNTER → 2024-11-19 | Outpatient (REF) | payer MEDICAID, SELFPAY ==
--- OUTSIDE RECORDS SUMMARY | 2024-11-19 04:17 | XMS RPT_ITS | CCD ---
Author Organization [facility] Inform ion Partnership [facility] Care Team Providers Care Correctional Therapy Director Name Role Phone PHYSICIAN, NONE Primary Care Physician Unavailab le PHYSICIAN, NONE Primary Care Unavailable RAQUEL LOAIZA MD Attending Unavailable Generic Provider , No Assigned Pcp Primary Car e Provider Unavailable Sara Montelongo Unavailable Unavailable Care Physician, No Primary Primary Care Unava ilable German Zhang Attending Unavailable Care Physician, No Primary Primary Care Unava ilable Shabnam Bhatia Attending Unavailable Shabnam Bhtaia Attending Unavailable Care Physician, No Primary Primary Care Unava ilable Care Physician, No Primary Primary Care Unava ilable Gudla MORRIS, Shabnam Attending Unavailable GABRIELE COHEN Consulting Unavailable GANGA CASTELLANO Admitting Unavailable GANGA CASTELLANO Attending Unavailable NOAH COLVIN Referring Unavailable Allergies Allergy Classification Reported Allergen(s) Allergy Type Date of Onset Reaction(s) Facility (2 sources) Cat; Translations: [CATS] Propensity to adverse reactions (disorder) 9 Dust [facility] (1 source) Dust; Translations: [DUST] Propensity to adverse reactions (disorder) 9 [facility] Medications Current Medications Medication Drug Class(es) [...] First dose on [facility] 11/01/24 at 1900 folic acid 1 mg oral [...] over 24 Hours, Daily, First dose on [facility] 11/03/24 at 1245 oxyCODONE hydrochloride 5 mg oral [...] 16 mg = 2.4 mg/kg 68.4 kg [place] weight), intramuscular, Once, On [facility] 11/01/24 at 0415, For 1 dose polyethylene glycol 3350 [id number] mg powder for oral solution (2 sources) Osmotic Laxative Start: 11-07-2024 polyethylene glycol (Glycolax, Miralax) 17 gram packet Indications: Drug-induced constipation Take 17 g by mouth once daily. 11/07/2024 Active Start: 11-01-2024 17 g, oral, Da alexandrea, First dose on [facility] 11/01/24 at 1900, Bowel Regimen - for prevention of constipation. thiamine 100 mg oral tablet (3 sources) Start: 11-07-2024 take 1 tablet by mouth once daily thiamine (Vitamin B-1) 100 mg tablet Indications: Alcohol use Take 1 tablet (100 mg) by mouth once daily. 11/07/2024 Active Start: 11-04-2024 100 mg, oral, Daily, First dose on [facility] 11/04/24 at 0900, To start after three days of IV Start: 11-01-2024 End: 11-04-2024 100 mg, intravenous, Daily, First dose on [facility] 11/01/24 at 0900, For 3 doses, [...] hour 100 mL/hr, intravenous, Continuous, Starting on [facility] 11/01/24 at 1430, For 1 day, Recovery (only) Start: 11-01-2024 End: 11-01-2024 1,000 mL, intravenous, at 99 9 mL/hr, Administer over 1 Hours, Once, On [facility] 11/01/24 at 1055, For 1 dose ceFAZolin 2000 mg injection (1 source) Cephalosporin Antibacterial Start: 11-01-2024 End: 11-02-2024 take 2 g intravenously every eight hours 2 g, intravenous, Administer over 30 Minutes, Every 8 hours, First dose on [facility] 11/01/24 at 2100, For 2 doses, [...] breakthrough, Starting on [facility] 11/01/24 at 1835 Start: 11-01-2024 End: 11-01-2024 0.5 mg, intravenous, Every 5 min PRN, pain severe (7-10), first line, Starting on [facility] 11/01/24 at 1405, Recovery (only), Max total of 4 mg regardless of dose. Start: 11-01-2024 End: 11-02-2024 0.4 mg, intravenous, Every 3 hours PRN, pain severe (7-10), first line, Starting on [facility] 11/01/24 at 0753 iohexol (OMNIPaque) 350 mg iodine/mL solution 100 mL (1 source) Start: 11-01-2024 End: 11-01-2024 100 mL, intravenous, Once in imaging, Starting on [facility] 11/01/24 at 0017, For 1 dose 1 ml [...] Onset: 10-31-2024 11-06-2024 Chronic Unclassified (1 source) Cough, unspecified; Translations: [Cough, unspecified] Onset: 04-16-2024 Unclassified (1 source) Alcohol use, unspecified, uncomplicated; Translations: [Alcohol use, unspecified, uncomplicated] Onset: 10-31-2024 Past or Other Problems Problem Classification Problem Date Documented Da te Episodic/Chronic Unclassified (1 source) Alcohol use, unspecified, uncomplicated; Translations: [Alcohol use, unspecified, uncomplicated] Onset: 10-31-2024 Results Test Name Value Interpretation Reference Range Facility Comprehensive Metabolic Prof ilon 11-13-2024 Bilirubin [Mass/Vol] 0.17 mg/dL Normal 0.00-1.30 [facility] Comment on above: Order Comment: 106.1 Performed By: #### L 3700.3000, L503.0106, L500.4050, L501.5200, L100.0100, L506.1001 #### [facility] [address] [place] [address], [address] L3700.3000on 11-13-2024 PHENobarbital [Mass/Vol] ug/mL Abnormal 15-40 [facility] Comment on above: Order Comment: 106.1 Result Comment: Ve rified by repeat analysis Detection Limit = 3 Performed at: [address] [id number] Director Global: Kennedy Morse PhD, Phone: [phone] Performed By: #### L 3700.3000, L503.0106, L500.4050, L501.5200, L100.0100, L506.1001 #### [facility] [address] [place], [address] CBC W/Diff, Automatedon 10-28-2024 Absolute Lymph 2.46 X10 3/uL Normal 0.83-4.51 [facility] Comment on above: Order Comment: 106.1 Performed By: #### L 3700.3000, L503.0106, L500.4050, L501.5200, L100.0100, L506.1001 #### [facility] [address] [place], [address] Absolute Neut 4.5 X10 3/uL Normal 2.0-7.7 [facility] Comment on above: Order Comment: 106.1 Performed By: #### L 3700.3000, L503.0106, L500.4050, L501.5200, L100.0100, L506.1001 #### [facility] [address] [place], [address] Basophils/100 WBC (Bld) 0.6 % Normal 0-1 [facility] Comment on above: Order Comment: 106.1 Performed By: #### L 3700.3000, L503.0106, L500.4050, L501.5200, L100.0100, L506.1001 #### [facility] [address] [place], [address] Eosinophils/100 WBC (Bld) 2.0 % Normal 0-5 [facility] Comment on above: Order Comment: 106.1 Performed By: #### L 3700.3000, L503.0106, L500.4050, L501.5200, L100.0100, L506.1001 #### [facility] [address] [place], [address] Erythrocyte distribution width (RBC) [Ratio] 12.2 % Normal 11.6-14.6 [facility] Comment on above: Order Comment: 106.1 Performed By: #### L 3700.3000, L503.0106, L500.4050, L501.5200, L100.0100, L506.1001 #### [facility] [address] [place], [address] Hematocrit (Bld) [Volume fraction] 39.9 % Low 40-54 [facility] Comment on above: Order Comment: 106.1 Performed By: #### L 3700.3000, L503.0106, L500.4050, L501.5200, L100.0100, L506.1001 #### [facility] [address] [place], [address] Hemoglobin (Bld) [Mass/Vol] 13.4 g/dL Normal 13.0-16.5 [facility] Comment on above: Order Comment: 106.1 Performed By: #### L 3700.3000, L503.0106, L500.4050, L501.5200, L100.0100, L506.1001 #### [facility] [address] [place], [address] IG% 0.900 Normal 0.0-0.9 [facility] Comment on above: Order Comment: 106.1 Result Comment: IG% - Immature Granulocytes (promyelocytes, myelocytes and metamyelocytes) > 1% indicates that a LEFT SHIFT is Present. Performed By: #### L 3700.3000, L503.0106, L500.4050, L501.5200, L100.0100, L506.1001 #### [facility] [address] [place], [address] Lymphocytes/100 WBC (Bld) 30.7 % Normal 19-41 [facility] Comment on above: Order Comment: 106.1 Performed By: #### L 3700.3000, L503.0106, L500.4050, L501.5200, L100.0100, L506.1001 #### [facility] [address] [place], [address] MCH (RBC) [Entitic mass] 30.1 pg Normal 27.0-32.0 [facility] Comment on above: Order Comment: 106.1 Performed By: #### L 3700.3000, L503.0106, L500.4050, L501.5200, L100.0100, L506.1001 #### [facility] [address] [place], [address] MCHC (RBC) [Mass/Vol] 33.6 g/dL Normal 32-36 [facility] Comment on above: Order Comment: 106.1 Performed By: #### L 3700.3000, L503.0106, L500.4050, L501.5200, L100.0100, L506.1001 #### [facility] [address] [place], [address] MCV (RBC) [Entitic vol] 89.7 fL Normal 80-94 [facility] Comment on above: Order Comment: 106.1 Performed By: #### L 3700.3000, L503.0106, L500.4050, L501.5200, L100.0100, L506.1001 #### [facility] [address] [place], [address] Monocytes/100 WBC (Bld) 10.2 % High 0-10 [facility] Comment on above: Order Comment: 106.1 Performed By: #### L 3700.3000, L503.0106, L500.4050, L501.5200, L100.0100, L506.1001 #### [facility] [address] [place], [address] Neutrophils/100 WBC (Bld) 55.6 % Normal 47-70 [facility] Comment on above: Order Comment: 106.1 Performed By: #### L 3700.3000, L503.0106, L500.4050, L501.5200, L100.0100, L506.1001 #### [facility] [address] [place], [address] Nucleated RBC (Bld) [#/Vol] 0 10*3/uL Normal 0-5 [facility] Comment on above: Order Comment: 106.1 Performed By: #### L 3700.3000, L503.0106, L500.4050, L501.5200, L100.0100, L506.1001 #### [facility] [address] [place], [address] Platelet mean volume (Bld) [Entitic vol] 10.9 fL Normal 6.2-12.0 [facility] Comment on above: Order Comment: 106.1 Performed By: #### L 3700.3000, L503.0106, L500.4050, L501.5200, L100.0100, L506.1001 #### [facility] [address] [place], [address] Platelets (Bld) [#/Vol] 224 10*3/uL Normal 150-450 [facility] Comment on above: Order Comment: 106.1 Performed By: #### L 3700.3000, L503.0106, L500.4050, L501.5200, L100.0100, L506.1001 #### [facility] [address] [place], [address] RBC (Bld) [#/Vol] 4.45 10*6/uL Low 4.6-6.2 [facility] Comment on above: Order Comment: 106.1 Performed By: #### L 3700.3000, L503.0106, L500.4050, L501.5200, L100.0100, L506.1001 #### [facility] [address] [place], [address] RDW SD 40.2 fl Normal 35.1-43.9 [facility] Comment on above: Order Comment: 106.1 Performed By: #### L 3700.3000, L503.0106, L500.4050, L501.5200, L100.0100, L506.1001 #### [facility] [address] [place], [address] WBC (Bld) [#/Vol] 8.0 10*3/uL Normal 4.4-11.0 [facility] Comment on above: Order Comment: 106.1 Performed By: #### L 3700.3000, L503.0106, L500.4050, L501.5200, L100.0100, L506.1001 #### [facility] [address] [place], [address] Magnesiumon 11-12-2024 Magnesium [Mass/Vol] 2.2 mg/dL Normal 1.5-2.2 [facility] Comment on above: Order Comment: 106.1 Performed By: #### L 3700.3000, L503.0106, L500.4050, L501.5200, L100.0100, L506.1001 #### [facility] [address] [place], [address] Vitamin B12on 11-12-2024 Cobalamin (Vitamin B12) [Mass/Vol] 647 pg/mL Normal 180-914 [facility] Comment on above: Order Comment: 106.1 Performed By: #### L 3700.3000, L503.0106, L500.4050, L501.5200, L100.0100, L506.1001 #### [facility] [address] [place], [address] Vitamin D,25 Hydroxyon 11-12 Vitamin D 25-OH 16.1 ng/mL Low 30-100 [facility] Comment on above: Order Comment: 106.1 Result Comment: Eleanor min D Status Deficiency: <20 ng/mL (50nmol/L) Insufficiency: 20-30 ng/mL (50-75 nmol/L) Sufficiency: 30-100 ng/mL (75-250 nmol/L) Toxicity: >100 ng/mL (>250 nmol/L) Performed By: #### L 3700.3000, L503.0106, L500.4050, L501.5200, L100.0100, L506.1001 #### [facility] [address] [place] [address] Urine Drug Screen (VISTA)on 11-09-2024 AMPHETAMINES Negative Normal <1000 ng/mL [facility] Comment on above: Order Comment: BENZO DIAZEPNES, COCAINE Performed By: #### L 505.5000 #### [facility] [address] [place] [address] BARBITIURATES Positive Normal < 200 ng/mL [facility] Comment on above: Order Comment: BENZO DIAZEPNES, COCAINE Result Comment: If c onfirmation testing is needed, a separate order will be required to send out testing to the reference laboratory. Performed By: #### L 505.5000 #### [facility] [address] [place] [address] BENZODIAZIPINE Negative Normal < 200 ng/mL [facility] Comment on above: Order Comment: BENZO DIAZEPNES, COCAINE Performed By: #### L 505.5000 #### [facility] [address] [place], [address] BUP Ur Drug Scr Negative Normal < 200 ng/mL [facility] Comment on above: Order Comment: BENZO DIAZEPNES, COCAINE Performed By: #### L 505.5000 #### [facility] [address] [place], [address] COCAINE Negative Normal < 300 ng/mL [facility] Comment on above: Order Comment: BENZO DIAZEPNES, COCAINE Performed By: #### L 505.5000 #### [facility] [address] [place] [id number] Fentanyl Negative Normal [facility] Comment on above: Order Comment: BENZO DIAZEPNES, COCAINE Performed By: #### L 505.5000 #### [facility] [address] [place], [address] METHADONE Negative Normal < 300 ng/mL [facility] Comment on above: Order Comment: BENZO DIAZEPNES, COCAINE Performed By: #### L 505.5000 #### [facility] [address] [place], [address] OPIATES Negative Normal < 300 ng/mL [facility] Comment on above: Order Comment: BENZO DIAZEPNES, COCAINE Performed By: #### L 505.5000 #### [facility] [address] [place], [place], [facility] OXYCODONE Positive Normal < 100 ng/mL [facility] Comment on above: Order Comment: BENZO DIAZEPNES, COCAINE Result Comment: If c onfirmation testing is needed, a separate order will be required to send out testing to the reference laboratory. Performed By: #### L 505.5000 #### [facility] [address] [place], [place], [facility] PCP Negative Normal < 25 ng/mL [facility] Comment on above: Order Comment: BENZO DIAZEPNES, COCAINE Performed By: #### L 505.5000 #### [facility] [address] [place], [place], [facility] THC Positive Normal < 50 ng/mL [facility] Comment on above: Order Comment: BENZO DIAZEPNES, COCAINE Result Comment: If c onfirmation testing is needed, a separate order will be required to send out testing to the reference laboratory. Performed By: #### L 505.5000 #### [facility] [address] [place], [address] CBC-Complete Blood Cnt No Di ffon 11-07-2024 Erythrocyte distribution width (RBC) [Ratio] 12.3 % Normal 11.6-14.6 [facility] Comment on above: Order Comment: 106.1 Performed By: #### L 3700.3000, L503.0106, L500.4050, L501.5200, L100.0100, L506.1001 #### [facility] [address] [place], [address] Hematocrit (Bld) [Volume fraction] 43.5 % Normal 40-54 [facility] Comment on above: Order Comment: 106.1 Performed By: #### L 3700.3000, L503.0106, L500.4050, L501.5200, L100.0100, L506.1001 #### [facility] [address] [place], [address] Hemoglobin (Bld) [Mass/Vol] 14.6 g/dL Normal 13.0-16.5 [facility] Comment on above: Order Comment: 106.1 Performed By: #### L 3700.3000, L503.0106, L500.4050, L501.5200, L100.0100, L506.1001 #### [facility] [address] [place], [address] MCH (RBC) [Entitic mass] 30.0 pg Normal 27.0-32.0 [facility] Comment on above: Order Comment: 106.1 Performed By: #### L 3700.3000, L503.0106, L500.4050, L501.5200, L100.0100, L506.1001 #### [facility] [address] [place], [address] MCHC (RBC) [Mass/Vol] 33.6 g/dL Normal 32-36 [facility] Comment on above: Order Comment: 106.1 Performed By: #### L 3700.3000, L503.0106, L500.4050, L501.5200, L100.0100, L506.1001 #### [facility] [address] [place], [address] MCV (RBC) [Entitic vol] 89.3 fL Normal 80-94 [facility] Comment on above: Order Comment: 106.1 Performed By: #### L 3700.3000, L503.0106, L500.4050, L501.5200, L100.0100, L506.1001 #### [facility] [address] [place], [address] Platelet mean volume (Bld) [Entitic vol] 10.8 fL Normal 6.2-12.0 [facility] Comment on above: Order Comment: 106.1 Performed By: #### L 3700.3000, L503.0106, L500.4050, L501.5200, L100.0100, L506.1001 #### [facility] [address] [place], [address] Platelets (Bld) [#/Vol] 227 10*3/uL Normal 150-450 [facility] Comment on above: Order Comment: 106.1 Performed By: #### L 3700.3000, L503.0106, L500.4050, L501.5200, L100.0100, L506.1001 #### [facility] [address] [place], [address] RBC (Bld) [#/Vol] 4.87 10*6/uL Normal 4.6-6.2 [facility] Comment on above: Order Comment: 106.1 Performed By: #### L 3700.3000, L503.0106, L500.4050, L501.5200, L100.0100, L506.1001 #### [facility] [address] [place], [address] RDW SD 40.0 fl Normal 35.1-43.9 [facility] Comment on above: Order Comment: 106.1 Performed By: #### L 3700.3000, L503.0106, L500.4050, L501.5200, L100.0100, L506.1001 #### [facility] [address] [place], [address] WBC (Bld) [#/Vol] 8.1 10*3/uL Normal 4.4-11.0 [facility] Comment on above: Order Comment: 106.1 Performed By: #### L 3700.3000, L503.0106, L500.4050, L501.5200, L100.0100, L506.1001 #### [facility] [address] [place], [address] Comprehensive Metabolic Prof ilon 11-07-2024 Albumin [Mass/Vol] 4.1 g/dL Normal 3.5-5.0 [facility] Comment on above: Order Comment: 106.1 Performed By: #### L 3700.3000, L503.0106, L500.4050, L501.5200, L100.0100, L506.1001 #### [facility] [address] [place], [address] Albumin/Globulin [Mass ratio] 1.3 {ratio} Normal 0.9-2.4 [facility] Comment on above: Order Comment: 106.1 Performed By: #### L 3700.3000, L503.0106, L500.4050, L501.5200, L100.0100, L506.1001 #### [facility] [address] [place], [address] ALK PHOS 80 U/L Normal 40-129 [facility] Comment on above: Order Comment: 106.1 Performed By: #### L 3700.3000, L503.0106, L500.4050, L501.5200, L100.0100, L506.1001 #### [facility] [address] [place], [address] ALT [Catalytic activity/Vol] 86 U/L High <=46 [facility] Comment on above: Order Comment: 106.1 Performed By: #### L 3700.3000, L503.0106, L500.4050, L501.5200, L100.0100, L506.1001 #### [facility] [address] [place], [address] AST [Catalytic activity/Vol] 61 U/L High <=37 [facility] Comment on above: Order Comment: 106.1 Performed By: #### L 3700.3000, L503.0106, L500.4050, L501.5200, L100.0100, L506.1001 #### [facility] [address] [place], [address] Bilirubin [Mass/Vol] 0.27 mg/dL Normal 0.00-1.30 [facility] Comment on above: Order Comment: 106.1 Performed By: #### L 3700.3000, L503.0106, L500.4050, L501.5200, L100.0100, L506.1001 #### [facility] [address] [place], [address] BUN/CRE 21.5 RATIO High 10-20 [facility] Comment on above: Order Comment: 106.1 Performed By: #### L 3700.3000, L503.0106, L500.4050, L501.5200, L100.0100, L506.1001 #### [facility] [address] [place], [address] Calcium [Mass/Vol] 9.7 mg/dL Normal 7.6-11.0 [facility] Comment on above: Order Comment: 106.1 Performed By: #### L 3700.3000, L503.0106, L500.4050, L501.5200, L100.0100, L506.1001 #### [facility] [address] [place], [address] Chloride [Moles/Vol] 100 mmol/L Normal 98-108 [facility] Comment on above: Order Comment: 106.1 Performed By: #### L 3700.3000, L503.0106, L500.4050, L501.5200, L100.0100, L506.1001 #### [facility] [address] [place], [address] CO2 [Moles/Vol] 25.1 mmol/L Normal 21.0-32.0 [facility] Comment on above: Order Comment: 106.1 Performed By: #### L 3700.3000, L503.0106, L500.4050, L501.5200, L100.0100, L506.1001 #### [facility] [address] [place], [address] Creatinine [Mass/Vol] 0.84 mg/dL Normal 0.70-1.20 [facility] Comment on above: Order Comment: 106.1 Performed By: #### L 3700.3000, L503.0106, L500.4050, L501.5200, L100.0100, L506.1001 #### [facility] [address] [place], [address] GAP 11 Normal 5-15 [facility] Comment on above: Order Comment: 106.1 Performed By: #### L 3700.3000, L503.0106, L500.4050, L501.5200, L100.0100, L506.1001 #### [facility] [address] [place], [address] GFR/1.73 sq M.predicted among non-blacks MDRD (S/P/Bld) [Vol rate/Area] 120 mL/min/{1.73_m2} Normal >60 [facility] Comment on above: Order Comment: 106.1 Result Comment: mL/m in/1.73m2 CKD-EPI Creatinine Equation (2020) Performed By: #### L 3700.3000, L503.0106, L500.4050, L501.5200, L100.0100, L506.1001 #### [facility] [address] [place], [address] Globulin (S) [Mass/Vol] 3.3 g/dL Normal 2.2-4.2 [facility] Comment on above: Order Comment: 106.1 Performed By: #### L 3700.3000, L503.0106, L500.4050, L501.5200, L100.0100, L506.1001 #### [facility] [address] [place], [address] Glucose [Mass/Vol] 117 mg/dL High 70-99 [facility] Comment on above: Order Comment: 106.1 Performed By: #### L 3700.3000, L503.0106, L500.4050, L501.5200, L100.0100, L506.1001 #### [facility] [address] [place], [address] Potassium [Moles/Vol] 4.2 mmol/L Normal 3.3-5.1 [facility] Comment on above: Order Comment: 106.1 Performed By: #### L 3700.3000, L503.0106, L500.4050, L501.5200, L100.0100, L506.1001 #### [facility] [address] [place], [address] Sodium [Moles/Vol] 136 mmol/L Normal 133-145 [facility] Comment on above: Order Comment: 106.1 Performed By: #### L 3700.3000, L503.0106, L500.4050, L501.5200, L100.0100, L506.1001 #### [facility] [address] [place], [address] T PROT 7.4 g/dL Normal 5.9-8.4 [facility] Comment on above: Order Comment: 106.1 Performed By: #### L 3700.3000, L503.0106, L500.4050, L501.5200, L100.0100, L506.1001 #### [facility] [address] [place], [place], [id number] Urea nitrogen [Mass/Vol] 18 mg/dL Normal 4-19 [facility] Comment on above: Order Comment: 106.1 Performed By: #### L 3700.3000, L503.0106, L500.4050, L501.5200, L100.0100, L506.1001 #### [facility] [address] [place], [place], [id number] CBC panel Auto (Bld)on 11-03 Erythrocyte distribution width (RBC) [Ratio] 12.2 % 11.5 - 14.5 % [facility] Hematocrit (Bld) [Volume fraction] 42.7 % 41.0 - 52.0 % [facility] Hemoglobin (Bld) [Mass/Vol] 13.6 g/dL 13.5 - 17.5 g/dL [facility] Interpretation and review of laboratory results Abnormal [facility] MCH (RBC) [Entitic mass] 30 pg 26.0 - 34.0 pg [facility] MCHC (RBC) [Mass/Vol] 31.9 g/dL Low 32.0 - 36.0 g/dL [facility] MCV (RBC) [Entitic vol] 94 fL 80 - 100 fL [facility] Nucleated RBC/100 WBC (Bld) [Ratio] 0 % [facility] Platelets (Bld) [#/Vol] 174 10*3/uL [facility] RBC (Bld) [#/Vol] 4.54 10*6/uL [facility] WBC (Bld) [#/Vol] 8 10*3/uL [facility] Erythrocyte distribution width (RBC) [Ratio] 12.2 % Normal 11.5-14.5 [facility] Comment on above: Performed By: #### 5 8410-2 ####MIRANDA Sims ([id number])[facility])[address] [place] [address] Hematocrit (Bld) [Volume fraction] 42.7 % Normal 41.0-52.0 [facility] Comment on above: Performed By: #### 5 8410-2 ####MIRANDA Sims ([id number])[facility])[address] [place] [address] Hemoglobin (Bld) [Mass/Vol] 13.6 g/dL Normal 13.5-17.5 [facility] Comment on above: Performed By: #### 5 8410-2 ####MIRANDA Sims ([id number])[facility])[address] [place] [address] MCH (RBC) [Entitic mass] 30.0 pg Normal 26.0-34.0 [facility] Comment on above: Performed By: #### 5 8410-2 ####MIRANDA Sims ([id number])[facility])[address] [place] [address] MCHC (RBC) [Mass/Vol] 31.9 g/dL Low 32.0-36.0 [facility] Comment on above: Performed By: #### 5 8410-2 ####MIRANDA Sims ([id number])[facility])[address] [place] [address] MCV (RBC) [Entitic vol] 94 fL Normal 80-100 [facility] Comment on above: Performed By: #### 5 8410-2 ####MIRANDA Sims ([id number])[facility])[address] [place] [address] Nucleated RBC/100 WBC (Bld) [Ratio] 0.0 /100 WBCs Normal 0.0-0.0 [facility] Comment on above: Performed By: #### 5 8410-2 ####MIRANDA Sims ([id number])[facility])[address] [place] [address] Platelets (Bld) [#/Vol] 174 x10*3/uL Normal 150-450 [facility] Comment on above: Performed By: #### 5 8410-2 ####MIRANDA Sims ([id number])[facility])[address] [place] [address] RBC (Bld) [#/Vol] 4.54 x10*6/uL Normal 4.50-5.90 [place] Comment on above: Performed By: #### 5 8410-2 ####MIRANDA Sims ([id number])[facility])[address] [place] [address] WBC (Bld) [#/Vol] 8.0 x10*3/uL Normal 4.4-11.3 [facility] Comment on above: Performed By: #### 5 8410-2 ####MIRANDA Sims ([id number])[facility])[address] [place] [address] CBC panel Auto (Bld)on 11-02 Erythrocyte distribution width (RBC) [Ratio] 12.1 % 11.5 - 14.5 % [facility] Hematocrit (Bld) [Volume fraction] 41.3 % 41.0 - 52.0 % [facility] Hemoglobin (Bld) [Mass/Vol] 13.6 g/dL 13.5 - 17.5 g/dL [facility] Interpretation and review of laboratory results Abnormal [facility] MCH (RBC) [Entitic mass] 29.8 pg 26.0 - 34.0 pg [facility] MCHC (RBC) [Mass/Vol] 32.9 g/dL 32.0 - 36.0 g/dL [facility] MCV (RBC) [Entitic vol] 90 fL 80 - 100 fL [facility] Nucleated RBC/100 WBC (Bld) [Ratio] 0 % [facility] Platelets (Bld) [#/Vol] 209 10*3/uL [facility] RBC (Bld) [#/Vol] 4.57 10*6/uL [facility] WBC (Bld) [#/Vol] 13.9 10*3/uL [facility] Erythrocyte distribution width (RBC) [Ratio] 12.1 % Normal 11.5-14.5 [facility] Comment on above: Performed By: #### 5 8410-2 ####MIRANDA Sims ([id number])[facility])[id number] [place] [address] Hematocrit (Bld) [Volume fraction] 41.3 % Normal 41.0-52.0 [facility] Comment on above: Performed By: #### 5 8410-2 ####MIRANDA Sims ([id number])[facility])[address] [place] [address] Hemoglobin (Bld) [Mass/Vol] 13.6 g/dL Normal 13.5-17.5 [facility] Comment on above: Performed By: #### 5 8410-2 ####MIRANDA Sims ([id number])[facility])[address] [place] [address] MCH (RBC) [Entitic mass] 29.8 pg Normal 26.0-34.0 [facility] Comment on above: Performed By: #### 5 8410-2 ####MIRANDA Sims ([id number])[facility])[address] [place] [address] MCHC (RBC) [Mass/Vol] 32.9 g/dL Normal 32.0-36.0 [facility] Comment on above: Performed By: #### 5 8410-2 ####MIRANDA Sims ([id number])[facility])[address] [place] [address] MCV (RBC) [Entitic vol] 90 fL Normal 80-100 [facility] Comment on above: Performed By: #### 5 8410-2 ####MIRANDA Smis ([id number])[facility])[address] [place] [address] Nucleated RBC/100 WBC (Bld) [Ratio] 0.0 /100 WBCs Normal 0.0-0.0 [facility] Comment on above: Performed By: #### 5 8410-2 ####MIRANDA Sims ([id number])[facility])[address] [place] [address] Platelets (Bld) [#/Vol] 209 x10*3/uL Normal 150-450 [facility] Comment on above: Performed By: #### 5 8410-2 ####MIRANDA Sims ([id number])[facility])[address] [place] [address] RBC (Bld) [#/Vol] 4.57 x10*6/uL Normal 4.50-5.90 [place] Comment on above: Performed By: #### 5 8410-2 ####MIRANDA Sims ([id number])[facility])[address] [place] [address] WBC (Bld) [#/Vol] 13.9 x10*3/uL High 4.4-11.3 [place] Comment on above: Performed By: #### 5 8410-2 ####MIRANDA Sims ([id number])[facility])[address] [place] [address] Renal function 2000 panelon 11-02-2024 Albumin BCP dye [Mass/Vol] 3.9 g/dL 3.4 - 5.0 g/dL [facility] Anion gap [Moles/Vol] 14 mmol/L 10 - 20 mmol/L [facility] Calcium [Mass/Vol] 8.9 mg/dL 8.6 - 10. 6 mg/dL [facility] Chloride [Moles/Vol] 100 mmol/L 98 - 10 7 mmol/L [facility] CO2 [Moles/Vol] 28 mmol/L 21 - 32 mmol/L [facility] Creatinine [Mass/Vol] 1.02 mg/dL 0.50 - 1.30 mg/dL [facility] eGFR - PINF [facility] Comment on above: Calculations of davey mated GFR are performed using the 2020 CKD-EPI Study Refit equation without the race variable for the IDMS-Traceable creatinine methods. https://jasn.asnjournals.org/content//ASN.13749 57874 Glucose [Mass/Vol] 170 mg/dL High 74 - 99 mg/dL [facility] Interpretation and review of laboratory results Abnormal [facility] Phosphate [Mass/Vol] 3.3 mg/dL 2.5 - 4 .9 mg/dL [facility] Potassium [Moles/Vol] 4.2 mmol/L 3.5 - 5.3 mmol/L [facility] Sodium [Moles/Vol] 138 mmol/L 136 - 145 mmol/L [facility] Urea nitrogen [Mass/Vol] 14 mg/dL 6 - 23 mg/dL [facility] Albumin BCP dye [Mass/Vol] 3.9 g/dL Normal 3.4-5.0 [facility] Comment on above: Performed By: #### 2 4362-6 ####MIRANDA Sims ([id number])[facility])[address] [place] [address] Anion gap [Moles/Vol] 14 mmol/L Normal 10-20 [facility] Comment on above: Performed By: #### 2 4362-6 ####MIRANDA Sims ([id number])[facility])[address] [place] [address] Calcium [Mass/Vol] 8.9 mg/dL Normal 8.6-10.6 [facility] Comment on above: Performed By: #### 2 4362-6 ####MIRANDA Sims ([id number])[facility])[address] [place] [address] Chloride [Moles/Vol] 100 mmol/L Normal 98-107 [place] Comment on above: Performed By: #### 2 4362-6 ####MIRANDA Sims ([id number])[facility])[address] [place] [address] CO2 [Moles/Vol] 28 mmol/L Normal 21-32 [facility] Comment on above: Performed By: #### 2 4362-6 ####MIRANDA Sims ([id number])[facility])[address] [place] [address] Creatinine [Mass/Vol] 1.02 mg/dL Normal 0.50-1.30 [facility] Comment on above: Performed By: #### 2 4362-6 ####MIRANDA Sims ([id number])[facility])[address] [place] [address] GFR/1.73 sq M.predicted MDRD (S/P/Bld) [Vol rate/Area] mL/min/{1.73_m2} Normal >60 [facility] Comment on above: Result Comment: Calc ulations of estimated GFR are performed using the 2020 CKD-EPI Study Refit equation without the race variable for the IDMS-Traceable creatinine methods. https://jasn.asnjournals.org/content/early//ASN.56350 68193 Performed By: #### 2 4362-6 ####MIRANDA Sims ([id number])[facility])[address] [place] [address] Glucose [Mass/Vol] 170 mg/dL High 74-99 [facility] Comment on above: Performed By: #### 2 4362-6 ####MIRANDA Sims ([id number])[facility])[address] [place] [address] Phosphate [Mass/Vol] 3.3 mg/dL Normal 2.5-4.9 [place] Comment on above: Performed By: #### 2 4362-6 ####MIRANDA Sims ([id number])[facility])[address] [place] [address] Potassium [Moles/Vol] 4.2 mmol/L Normal 3.5-5.3 [facility] Comment on above: Performed By: #### 2 4362-6 ####MIRANDA Sims ([id number])[facility])[address] [place] [address] Sodium [Moles/Vol] 138 mmol/L Normal 136-145 [facility] Comment on above: Performed By: #### 2 4362-6 ####MIRANDA Sims ([id number])[facility])[address] [place] [address] Urea nitrogen [Mass/Vol] 14 mg/dL Normal 6-23 [facility] Comment on above: Performed By: #### 2 4362-6 ####MIRANDA Sims ([id number])[facility])[address] [place] [address] TSH WITH REFLEX TO FREE T4 I F ABNORMALon 11-02-2024 TSH Qn 1.52 m[IU]/L Normal 0.44-3.98 [facility] Comment on above: Order Comment: TSH t esting is performed using different testing methodology at [facility] than at other [facility]. Direct result comparisons should only be made within the same method. Performed By: #### T HYDS ####MIRANDA Sims ([id number])[facility])[address] [place] [address] TSH with reflex to Free T4 i f abnormalon 11-02-2024 Interpretation and review of laboratory results Normal [facility] TSH Qn 1.52 m[IU]/L [facility] TSH testing is performed using different testing methodology at [facility] than at other [facility]. Direct result comparisons should only be made within the same method. [facility] Blood type and Indirect anti body screen panel (Bld)on 11-01-2024 ABO group Nom (Bld) A [facility] Blood group antibody screen Ql Negative [facility] D Ag Ql (Bld) Positive [facility] CBC panel Auto (Bld)on 11-01 Erythrocyte distribution width (RBC) [Ratio] 12.3 % 11.5 - 14.5 % [facility] Hematocrit (Bld) [Volume fraction] 45.5 % 41.0 - 52.0 % [facility] Hemoglobin (Bld) [Mass/Vol] 15.2 g/dL 13.5 - 17.5 g/dL [facility] Interpretation and review of laboratory results Normal [facility] MCH (RBC) [Entitic mass] 30.4 pg 26.0 - 34.0 pg [facility] MCHC (RBC) [Mass/Vol] 33.4 g/dL 32.0 - 36.0 g/dL [facility] MCV (RBC) [Entitic vol] 91 fL 80 - 100 fL [facility] Nucleated RBC/100 WBC (Bld) [Ratio] 0 % [facility] Platelets (Bld) [#/Vol] 204 10*3/uL [facility] RBC (Bld) [#/Vol] 5 10*6/uL [facility] WBC (Bld) [#/Vol] 10.2 10*3/uL [facility] Erythrocyte distribution width (RBC) [Ratio] 12.3 % Normal 11.5-14.5 [facility] Comment on above: Performed By: #### 5 8410-2 ####MIRANDA Sims ([id number])[facility])[id number] [place] [address] Hematocrit (Bld) [Volume fraction] 45.5 % Normal 41.0-52.0 [facility] Comment on above: Performed By: #### 5 8410-2 ####MIRANDA Sims ([id number])[facility])[address] [place] [address] Hemoglobin (Bld) [Mass/Vol] 15.2 g/dL Normal 13.5-17.5 [facility] Comment on above: Performed By: #### 5 8410-2 ####MIRANDA Sims ([id number])[facility])[address] [place] [address] MCH (RBC) [Entitic mass] 30.4 pg Normal 26.0-34.0 [facility] Comment on above: Performed By: #### 5 8410-2 ####MIRANDA Sims ([id number])[facility])[address] [place] [address] MCHC (RBC) [Mass/Vol] 33.4 g/dL Normal 32.0-36.0 [facility] Comment on above: Performed By: #### 5 8410-2 ####MIRANDA Sims ([id number])[facility])[address] [place] [address] MCV (RBC) [Entitic vol] 91 fL Normal 80-100 [facility] Comment on above: Performed By: #### 5 8410-2 ####MIRANDA Sims ([id number])[facility])[address] [place] [address] Nucleated RBC/100 WBC (Bld) [Ratio] 0.0 /100 WBCs Normal 0.0-0.0 [facility] Comment on above: Performed By: #### 5 8410-2 ####MIRANDA Sims ([id number])[facility])[address] [place] [address] Platelets (Bld) [#/Vol] 204 x10*3/uL Normal 150-450 [facility] Comment on above: Performed By: #### 5 8410-2 ####MIRANDA Sims ([id number])[facility])[address] [place] [address] RBC (Bld) [#/Vol] 5.00 x10*6/uL Normal 4.50-5.90 [place] Comment on above: Performed By: #### 5 8410-2 ####MIRANDA Sims ([id number])[facility])[address] [place] [address] WBC (Bld) [#/Vol] 10.2 x10*3/uL Normal 4.4-11.3 [place] Comment on above: Performed By: #### 5 8410-2 ####MIRANDA ARANDABETTYE Sims ([id number])[facility])[address] [place] [address] CT Cervical spine WO contras ton 11-01-2024 1. No acute fracture or traumatic malalignment of the cervical spine. I personally reviewed the images/study and resident's interpretation and I agree with the findings as stated by Anisa Mena MD (resident radiologist). This study was analyzed and interpreted at [place], [place]. MACRO: None. Signed by: Julián Mendez 11/01/2024 1:04 AM Dictation workstation: [id number] Interpreted By: Julián Mendez and Hofer Lindsay STUDY: CT CERVICAL SPINE WO IV CONTRAST; 11/01/2024 12:31 am INDICATION: Signs/Symptoms:fall/s eizure. COMPARISON: None. ACCESSION NUMBER(S): [id number] ORDERING CLINICIAN: EDNA CHOUDHARY TECHNIQUE: Axial noncontrast [...] INDICATION: Signs/Symptoms:fall/s eizure. COMPARISON: None. ACCESSION NUMBER(S): [id number] ORDERING CLINICIAN: EDNA CHOUDHARY TECHNIQUE: Axial noncontrast [...] This study was analyzed and interpreted at [place], [place]. MACRO: None. Signed by: Julián Mendez 11/01/2024 1:04 AM Dictation workstation: [id number] [facility] Work Phone: [facility] Work Phone: Creatine Kinaseon 11-01-2024 CK [Catalytic activity/Vol] 56 U/L 0 - 325 U/L [facility] Creatine kinaseon 11-01-2024 CK [Catalytic activity/Vol] 56 U/L Normal 0-325 [facility] Comment on above: Performed By: #### 2 157-6 ####MIRANDA Sims ([id number])[facility])[address] [place], [place] [address] DRUG SCREEN,URINEon 11-02-19 25 Amphetamines Screen Ql (U) Negative Presumptive Negative [facility] Comment on above: CUTOFF LEVEL: 500 NG /ML Cross-reactivity has been reported with high concentrations of the following drugs: buproprion, chloroquine, chlorpromazine, ephedrine, mephentermine, fenfluramine, phentermine, phenylpropanolamine, pseudoephedrine, and propranolol. Barbiturates Screen Ql (U) Negative Presumptive Negative [facility] Comment on above: CUTOFF LEVEL: 200 NG /ML Benzodiazepines Ql (U) Negative Presu mptive Negative [facility] Comment on above: CUTOFF LEVEL: 200 NG /ML Benzoylecgonine Screen Ql (U) Positive Abnormal Presumptive Negative [facility] Comment on above: CUTOFF LEVEL: 150 NG /ML Cannabinoids Screen Ql (U) Positive Abnormal Presumptive Negative [facility] Comment on above: CUTOFF LEVEL: 50 NG/ ML fentaNYL+Norfentanyl Screen Ql (U) Negative Presumptive Negative [facility] Comment on above: CUTOFF LEVEL: 5 NG/M L Interpretation and review of laboratory results Abnormal [facility] Methadone Screen Ql (U) Negative Presumptive Negative [facility] Comment on above: CUTOFF LEVEL: 150 NG /ML The metabolite K-lrlnt-oargsfiqhlfkgc (LAAM) is not detected by this method in concentrations that would be found in the urine of patients on LAAM therapy. Opiates Screen Ql (U) Negative Presum ptive Negative [facility] Comment on above: CUTOFF LEVEL: 300 NG /ML The opiate screen does not detect fentanyl, meperidine, or tramadol. Oxycodone is not consistently detected (refer to Oxycodone Screen, Urine result). oxyCODONE+oxyMORphone Screen Ql (U) Negative Presumptive Negative [facility] Comment on above: CUTOFF LEVEL: 100 NG /ML This test will accurately detect both oxycodone and oxymorphone. Phencyclidine Ql (U) Negative Presump tive Negative [facility] Comment on above: CUTOFF LEVEL: 25 NG/ ML Cross-reactivity has been reported with dextromethorphan. Drug screen results are presumptive and should not be used to assess compliance with prescribed medication. Contact the performing [facility] laboratory to add-on definitive confirmatory testing if [...] directed to the laboratory medical directors. [facility] Amphetamines Screen Ql (U) Negative Normal Presumptive Negative [facility] Comment on above: Order Comment: Drug screen results are presumptive and should not be used to assesscompliance with prescribed medication. Contact the performing [facility] laboratoryto add-on definitive confirmatory testing if clinically [...] Performed By: #### D RUG3 ####MIRANDA Sims ([id number])[facility])[address] [place] [address] Barbiturates Screen Ql (U) Negative Normal Presumptive Negative [facility] Comment on above: Order Comment: Drug screen results are presumptive and should not be used to assesscompliance with prescribed medication. Contact the performing [facility] laboratoryto add-on definitive confirmatory testing if clinically [...] By: #### D RUG3 ####MIRANDA GONZALEZ L ([id number])[facility])[address] [place] [address] Benzodiazepines Ql (U) Negative Normal Presu mptive Negative [facility] Comment on above: Order Comment: Drug screen results are presumptive and should not be used to assesscompliance with prescribed medication. Contact the performing [facility] laboratoryto add-on definitive confirmatory testing if clinically [...] Performed By: #### D RUG3 ####MIRANDA Sims ([id number])[facility])[address] [place] [address] Benzoylecgonine Screen Ql (U) Positive Abnormal Presumptive Negative [facility] Comment on above: Order Comment: Drug screen results are presumptive and should not be used to assesscompliance with prescribed medication. Contact the performing [facility] laboratoryto add-on definitive confirmatory testing if clinically [...] NG/ML Performed By: #### D RUG3 ####MIRANDA STEVEMOTZER L ([id number])[facility])[address] [place] [address] Cannabinoids Screen Ql (U) Positive Abnormal Presumptive Negative [facility] Comment on above: Order Comment: Drug screen results are presumptive and should not be used to assesscompliance with prescribed medication. Contact the performing [facility] laboratoryto add-on definitive confirmatory testing if clinically [...] Performed By: #### D RUG3 ####MIRANDA Sims ([id number])[facility])[address] [place] [address] fentaNYL+Norfentanyl Screen Ql (U) Negative Normal Presumptive Negative [facility] Comment on above: Order Comment: Drug screen results are presumptive and should not be used to assesscompliance with prescribed medication. Contact the performing [facility] laboratoryto add-on definitive confirmatory testing if clinically [...] Performed By: #### D RUG3 ####MIRANDA Sims ([id number])[facility])[address] [place], [place] [address] Methadone Screen Ql (U) Negative Normal Presumptive Negative [facility] Comment on above: Order Comment: Drug screen results are presumptive and should not be used to assesscompliance with prescribed medication. Contact the performing [facility] laboratoryto add-on definitive confirmatory testing if clinically [...] CUTO FF LEVEL: 150 NG/ML The metabolite F-oyakb-nkyfdebkrnydkp (LAAM) is not detected by this method in concentrations that would be found in the urine of patients on LAAM therapy. Performed By: #### D RUG3 ####MIRANDA Sims ([id number])[facility])[address] [place] [address] Opiates Screen Ql (U) Negative Normal Presum ptive Negative [facility] Comment on above: Order Comment: Drug screen results are presumptive and should not be used to assesscompliance with prescribed medication. Contact the performing [facility] laboratoryto add-on definitive confirmatory testing if clinically [...] Performed By: #### D RUG3 ####MIRANDA Sims ([id number])[facility])[address] [place] [address] oxyCODONE+oxyMORphone Screen Ql (U) Negative Normal Presumptive Negative [facility] Comment on above: Order Comment: Drug screen results are presumptive and should not be used to assesscompliance with prescribed medication. Contact the performing [facility] laboratoryto add-on definitive confirmatory testing if clinically [...] Performed By: #### D RUG3 ####MIRANDA Sims ([id number])[facility])[address] [place] [address] Phencyclidine Ql (U) Negative Normal Presump tive Negative [facility] Comment on above: Order Comment: Drug screen results are presumptive and should not be used to assesscompliance with prescribed medication. Contact the performing [facility] laboratoryto add-on definitive confirmatory testing if clinically [...] Performed By: #### D RUG3 ####MIRANDA Sims ([id number])[facility])[address] [place] [address] FL FLUORO IMAGES NO CHARGEon 11-01-2024 FL FLUORO IMAGES NO CHARGE These images are not reportable by radiology and will not be interpreted by Radiologists. Normal [facility] Lactateon 11-01-2024 Lactate [Moles/Vol] 1.2 mmol/L 0.4 - 2. 0 mmol/L [facility] Lactate [Moles/Vol] 1.2 mmol/L Normal 0.4-2.0 [facility] Comment on above: Order Comment: Venip uncture immediately after or during the administration of Metamizole may lead to falsely low results. Testing should be performed immediately prior to Metamizole dosing. Performed By: #### 2 524-7 ####MIRANDA Sims ([id number])[facility])[id number] [place], [place] [address] Lactate [Moles/Vol]on 2024 Venipuncture immediately after or during the administration of Metamizole may lead to falsely low results. Testing should be performed immediately prior to Metamizole dosing. [facility] No Panel Informationon 11-01 Interpretation and review of laboratory results Normal [facility] CT CHEST/ABDOMEN/PELVIS: *No acute traumatic injury. CT THORACIC AND LUMBAR SPINE: *No acute fracture or traumatic malalignment. I personally reviewed the images/study and I agree with the findings as stated by resident Horacio Loera. This study was interpreted at [place], [place]. MACRO: None. Signed by: Julián Mendez 11/01/2024 1:14 AM Dictation workstation: [id number] MMODAL Interpreted By: Julián Mendez and Ritchie Brandon STUDY: CT CHEST ABDOMEN PELVIS W IV CONTRAST; CT THORACIC SPINE RETROSPECTIVE RECONSTRUCTION PROTOCOL; CT LUMBAR SPINE RETROSPECTIVE RECONSTRUCTION PROTOCOL; 11/01/2024 12:31 am INDICATION: Signs/Symptoms:fall/s eizure. COMPARISON: Radiograph of the chest 10/31/2024. ACCESSION NUMBER(S): [id number]; [id number]; [id number] ORDERING CLINICIAN: EDNA CHOUDHARY TECHNIQUE: Contiguous axial [...] NEURAL FORAMINA: No significant neural foraminal stenosis. MMODAL Julián Mendez MD - 11/01/2024 Interpreted By: Julián Mendez and Ritchie Brandon STUDY: CT CHEST ABDOMEN PELVIS W IV CONTRAST; CT THORACIC SPINE RETROSPECTIVE RECONSTRUCTION PROTOCOL; CT LUMBAR SPINE RETROSPECTIVE RECONSTRUCTION PROTOCOL; 11/01/2024 12:31 am INDICATION: Signs/Symptoms:fall/s eizure. COMPARISON: Radiograph of the chest 10/31/2024. ACCESSION NUMBER(S): [id number]; [id number]; [id number] ORDERING CLINICIAN: EDNA CHOUDHARY TECHNIQUE: Contiguous axial [...] Horacio Loera. This study was interpreted at [place], [place]. MACRO: None. Signed by: Julián Mendez 11/01/2024 1:14 AM Dictation workstation: [id number] [facility] Work Phone: [facility] Work Phone: Radiology Study observation (narrative) [facility] Work Phone: Renal function 2000 panelon 11-01-2024 Albumin BCP dye [Mass/Vol] 4.4 g/dL 3.4 - 5.0 g/dL [facility] Anion gap [Moles/Vol] 12 mmol/L 10 - 20 mmol/L [facility] Calcium [Mass/Vol] 9.2 mg/dL 8.6 - 10. 6 mg/dL [facility] Chloride [Moles/Vol] 102 mmol/L 98 - 10 7 mmol/L [facility] CO2 [Moles/Vol] 28 mmol/L 21 - 32 mmol/L [facility] Creatinine [Mass/Vol] 0.9 mg/dL 0.50 - 1.30 mg/dL [facility] eGFR - PINF [facility] Comment on above: Calculations of davey mated GFR are performed using the 2020 CKD-EPI Study Refit equation without the race variable for the IDMS-Traceable creatinine methods. https://jasn.asnjournals.org/content//ASN.34888 28811 Glucose [Mass/Vol] 102 mg/dL High 74 - 99 mg/dL [facility] Interpretation and review of laboratory results Abnormal [facility] Phosphate [Mass/Vol] 3.5 mg/dL 2.5 - 4 .9 mg/dL [facility] Potassium [Moles/Vol] 4.5 mmol/L 3.5 - 5.3 mmol/L [facility] Sodium [Moles/Vol] 137 mmol/L 136 - 145 mmol/L [facility] Urea nitrogen [Mass/Vol] 13 mg/dL 6 - 23 mg/dL [facility] Albumin BCP dye [Mass/Vol] 4.4 g/dL Normal 3.4-5.0 [facility] Comment on above: Performed By: #### 2 4362-6 ####MIRANDA Sims ([id number])[facility])[address] [place] [address] Anion gap [Moles/Vol] 12 mmol/L Normal 10-20 [facility] Comment on above: Performed By: #### 2 4362-6 ####MIRANDA Sims ([id number])[facility])[address] [place] [address] Calcium [Mass/Vol] 9.2 mg/dL Normal 8.6-10.6 [facility] Comment on above: Performed By: #### 2 4362-6 ####MIRANDA Sims ([id number])[facility])[address] [place] [address] Chloride [Moles/Vol] 102 mmol/L Normal 98-107 [place] Comment on above: Performed By: #### 2 4362-6 ####MIRANDA Sims ([id number])[facility])[address] [place] [address] CO2 [Moles/Vol] 28 mmol/L Normal 21-32 [facility] Comment on above: Performed By: #### 2 4362-6 ####MIRANDA Sims ([id number])[facility])[address] [place] [address] Creatinine [Mass/Vol] 0.90 mg/dL Normal 0.50-1.30 [facility] Comment on above: Performed By: #### 2 4362-6 ####MIRANDA Sims ([id number])[facility])[address] [place] [address] GFR/1.73 sq M.predicted MDRD (S/P/Bld) [Vol rate/Area] mL/min/{1.73_m2} Normal >60 [facility] Comment on above: Result Comment: Calc ulations of estimated GFR are performed using the 2020 CKD-EPI Study Refit equation without the race variable for the IDMS-Traceable creatinine methods. https://jasn.asnjournals.org/content/early/ASN.80457 27453 Performed By: #### 2 4362-6 ####MIRANDA Sims ([id number])[facility])[address] [place] [address] Glucose [Mass/Vol] 102 mg/dL High 74-99 [facility] Comment on above: Performed By: #### 2 4362-6 ####MIRANDA Sism ([id number])[facility])[address] [place] [address] Phosphate [Mass/Vol] 3.5 mg/dL Normal 2.5-4.9 [place] Comment on above: Performed By: #### 2 4362-6 ####MIRANDA Sims ([id number])[facility])[address] [place] [address] Potassium [Moles/Vol] 4.5 mmol/L Normal 3.5-5.3 [facility] Comment on above: Performed By: #### 2 4362-6 ####MIRANDA Sims ([id number])[facility])[address] [place] [address] Sodium [Moles/Vol] 137 mmol/L Normal 136-145 [facility] Comment on above: Performed By: #### 2 4362-6 ####MIRANDA Sims ([id number])[facility])[address] [place] [address] Urea nitrogen [Mass/Vol] 13 mg/dL Normal 6-23 [facility] Comment on above: Performed By: #### 2 4362-6 ####MIRANDA Sims ([id number])[facility])[address] [place] [address] XR tomography Unspecified vanessa dy regionon 11-01-2024 These images are not reportable by radiology and will not be interpreted by Radiologists. IMAGING Blood type and Indirect anti body screen panel (Bld)on 10-31-2024 ABO group Nom (Bld) A Normal [facility] Comment on above: Performed By: #### 3 4532-2 ####MIRANDA Sims ([id number])[facility] ([facility])[address] [place] [address] Blood group antibody screen Ql Negative [facility] Comment on above: Performed By: #### 3 4532-2 ####MIRANDA Sims ([id number])[facility] ([facility])[address] [place] [address] D Ag Ql (Bld) Positive [facility] Comment on above: Performed By: #### 3 4532-2 ####MIRANDA Sims ([id number])[facility] [place] [address] CBC W Auto Differential pane l (Bld)on 10-31-2024 Basophils (Bld) [#/Vol] 0.07 10*3/uL [facility] Basophils/100 WBC (Bld) 0.5 % 0.0 - 2.0 % [facility] Eosinophils (Bld) [#/Vol] 0.09 10*3/uL [facility] Eosinophils/100 WBC (Bld) 0.7 % 0.0 - 6.0 % [facility] Erythrocyte distribution width (RBC) [Ratio] 12 % 11.5 - 14.5 % [facility] Hematocrit (Bld) [Volume fraction] 45.9 % 41.0 - 52.0 % [facility] Hemoglobin (Bld) [Mass/Vol] 16.3 g/dL 13.5 - 17.5 g/dL [facility] Immature granulocytes (Bld) [#/Vol] 0.09 10*3/uL [facility] Immature granulocytes/100 WBC (Bld) 0.7 % 0.0 - 0.9 % [facility] Comment on above: Immature Granulocyte Count (IG) includes promyelocytes, myelocytes and metamyelocytes but does not include bands. Percent differential counts (%) should be interpreted in the context of the absolute cell counts (cells/UL). Interpretation and review of laboratory results Abnormal [facility] Lymphocytes (Bld) [#/Vol] 2.28 10*3/uL [facility] Lymphocytes/100 WBC (Bld) 16.5 % 13.0 - 44.0 % [facility] MCH (RBC) [Entitic mass] 30.2 pg 26.0 - 34.0 pg [facility] MCHC (RBC) [Mass/Vol] 35.5 g/dL 32.0 - 36.0 g/dL [facility] MCV (RBC) [Entitic vol] 85 fL 80 - 100 fL [facility] Monocytes (Bld) [#/Vol] 0.96 10*3/uL [facility] Monocytes/100 WBC (Bld) 7 % 2.0 - 10.0 % [facility] Neutrophils (Bld) [#/Vol] 10.32 10*3/uL High [facility] Comment on above: Percent differential counts (%) should be interpreted in the context of the absolute cell counts (cells/uL). Neutrophils/100 WBC (Bld) 74.6 % 40.0 - 80.0 % [facility] Nucleated RBC/100 WBC (Bld) [Ratio] 0 % [facility] Platelets (Bld) [#/Vol] 230 10*3/uL [facility] RBC (Bld) [#/Vol] 5.4 10*6/uL [facility] WBC (Bld) [#/Vol] 13.8 10*3/uL [facility] Basophils (Bld) [#/Vol] 0.07 x10*3/uL Normal 0.00-0.10 [facility] Comment on above: Performed By: #### 5 7021-8 #### MIRANDA Sims ([id number]) [facility]) [address] [place] [address] Basophils/100 WBC (Bld) 0.5 % Normal 0.0-2.0 [facility] Comment on above: Performed By: #### 5 7021-8 #### MIRANDA Sims ([id number]) [facility]) [address] [place] [address] Eosinophils (Bld) [#/Vol] 0.09 x10*3/uL Normal 0.00-0.70 [facility] Comment on above: Performed By: #### 7021-8 #### MIRANDA Sims ([id number]) [facility]) [address] [place] [address] Eosinophils/100 WBC (Bld) 0.7 % Normal 0.0-6.0 [facility] Comment on above: Performed By: #### 5 7021-8 #### MIRANDA Sims ([id number]) [facility]) [address] [place] [address] Erythrocyte distribution width (RBC) [Ratio] 12.0 % Normal 11.5-14.5 [facility] Comment on above: Performed By: #### 5 7021-8 #### MIRANDA Sims ([id number]) [facility]) [address] [place] [address] Hematocrit (Bld) [Volume fraction] 45.9 % Normal 41.0-52.0 [facility] Comment on above: Performed By: #### 5 70-8 #### MIRANDA Sims ([id number]) [facility]) [address] [place] [address] Hemoglobin (Bld) [Mass/Vol] 16.3 g/dL Normal 13.5-17.5 [facility] Comment on above: Performed By: #### 5 7021-8 #### MIRANDA Sims ([id number]) [facility]) [address] [place] [address] Immature granulocytes (Bld) [#/Vol] 0.09 x10*3/uL Normal 0.00-0.70 [facility] Comment on above: Performed By: #### 5 7021-8 #### MIRANDA Sims ([id number]) [facility]) [address] [place] [address] Immature granulocytes/100 WBC (Bld) 0.7 % Normal 0.0-0.9 [facility] Comment on above: Result Comment: Zora ture Granulocyte Count (IG) includes promyelocytes, myelocytes and metamyelocytes but does not include bands. Percent differential counts (%) should be interpreted in the context of the absolute cell counts (cells/UL). Performed By: #### 5 7021-8 #### MIRANDA Sims ([id number]) [facility]) [address] [place] [address] Lymphocytes (Bld) [#/Vol] 2.28 x10*3/uL Normal 1.20-4.80 [facility] Comment on above: Performed By: #### 5 7021-8 #### MIRANDA Sims ([id number]) [facility]) [address] [place] [address] Lymphocytes/100 WBC (Bld) 16.5 % Normal 13.0-44.0 [facility] Comment on above: Performed By: #### 5 7021-8 #### MIRANDA Sims ([id number]) [facility]) [address] [place] [address] MCH (RBC) [Entitic mass] 30.2 pg Normal 26.0-34.0 [facility] Comment on above: Performed By: #### 5 7021-8 #### MIRANDA Sims ([id number]) [facility]) [address] [place] [address] MCHC (RBC) [Mass/Vol] 35.5 g/dL Normal 32.0-36.0 [facility] Comment on above: Performed By: #### 5 7021-8 #### MIRANDA Sims ([id number]) [facility]) [address] [place] [address] MCV (RBC) [Entitic vol] 85 fL Normal 80-100 [facility] Comment on above: Performed By: #### 5 7021-8 #### MIRANDA Sims ([id number]) [facility]) [address] [place] [address] Monocytes (Bld) [#/Vol] 0.96 x10*3/uL Normal 0.10-1.00 [facility] Comment on above: Performed By: #### 5 7021-8 #### MIRANDA Sims ([id number]) [facility]) [address] [place] [address] Monocytes/100 WBC (Bld) 7.0 % Normal 2.0-10.0 [facility] Comment on above: Performed By: #### 5 7021-8 #### MIRANDA Sims ([id number]) [facility]) [address] [place] [address] Neutrophils (Bld) [#/Vol] 10.32 x10*3/uL High 1.20-7.70 [facility] Comment on above: Result Comment: Perc ent differential counts (%) should be interpreted in the context of the absolute cell counts (cells/uL). Performed By: #### 5 7021-8 #### MIRANDA Sims ([id number]) [facility]) [address] [place] [address] Neutrophils/100 WBC (Bld) 74.6 % Normal 40.0-80.0 [facility] Comment on above: Performed By: #### 5 7021-8 #### MIRANDA Sims ([id number]) [facility]) [address] [place] [address] Nucleated RBC/100 WBC (Bld) [Ratio] 0.0 /100 WBCs Normal 0.0-0.0 [facility] Comment on above: Performed By: #### 5 7021-8 #### MIRANDA Sims ([id number]) [facility]) [address] [place] [address] Platelets (Bld) [#/Vol] 230 x10*3/uL Normal 150-450 [facility] Comment on above: Performed By: #### 5 7021-8 #### MIRANDA Sims ([id number]) [facility]) [address] [place] [address] RBC (Bld) [#/Vol] 5.40 x10*6/uL Normal 4.50-5.90 [place] Comment on above: Performed By: #### 5 7021-8 #### MIRANDA Sims ([id number]) [facility]) [address] [place] [address] WBC (Bld) [#/Vol] 13.8 x10*3/uL High 4.4-11.3 [place] Comment on above: Performed By: #### 5 7021-8 #### MIRANDA Sims ([id number]) [facility]) [address] [place] [address] ANKLE RIGHT WO IV CONTRAS Ton 10-31-2024 CT ANKLE RIGHT WO IV CONTRAST Interpreted By: Julián Mendez and Ritchie Brandon STUDY: CT of right foot without contrast. INDICATION: Signs/Symptoms:ankle fx COMPARISON: Radiographs of the ankle 10/31/2024. ACCESSION NUMBER(S): [id number] ORDERING CLINICIAN: NOAH COLVIN TECHNIQUE: Contiguous axial [...] Horacio Loera. This study was interpreted at [place], [place]. MACRO: None Signed by: Julián Mendez 10/31/2024 11:31 PM Dictation workstation: [id number] Normal [facility] CT Ankle - right WO [...] Horacio Loera. This study was interpreted at [place], [place]. MACRO: None Signed by: Julián Mendez 10/31/2024 11:31 PM Dictation workstation: [id number] MMODAL Interpreted By: Julián Mendez and Ritchie Brandon STUDY: CT of right foot without contrast. INDICATION: Signs/Symptoms:ankle fx COMPARISON: Radiographs of the ankle 10/31/2024. ACCESSION NUMBER(S): [id number] ORDERING CLINICIAN: NOAH COLVIN TECHNIQUE: Contiguous axial [...] Radiographs of the ankle 10/31/2024. ACCESSION NUMBER(S): [id number] ORDERING CLINICIAN: NOAH COLVIN TECHNIQUE: Contiguous axial [...] Horacio Loera. This study was interpreted at [place], [place]. MACRO: None Signed by: Julián Mendez 10/31/2024 11:31 PM Dictation workstation: [id number] [facility] Work Phone: [facility] Work Phone: CT CERVICAL SPINE WO IV CONT [facility] 10-31-2024 CT CERVICAL SPINE WO IV CONTRAST Interpreted By: Julián Mendez, and Rajesh Lange STUDY: CT CERVICAL SPINE WO IV CONTRAST; 11/01/2024 12:31 am INDICATION: Signs/Symptoms:fall/s eizure. COMPARISON: None. ACCESSION NUMBER(S): [id number] ORDERING CLINICIAN: EDNA CHOUDHARY TECHNIQUE: Axial noncontrast [...] This study was analyzed and interpreted at [place], [place]. MACRO: None. Signed by: Julián Mendez 11/01/2024 1:04 AM Dictation workstation: [id number] Normal [facility] CT CHEST ABDOMEN PELVIS W IV CONTRASTon 10-31-2024 CT CHEST ABDOMEN PELVIS W IV CONTRAST Interpreted By: Julián Mendez and Ritchie Brandon STUDY: CT CHEST ABDOMEN PELVIS W IV CONTRAST; CT THORACIC SPINE RETROSPECTIVE RECONSTRUCTION PROTOCOL; CT LUMBAR SPINE RETROSPECTIVE RECONSTRUCTION PROTOCOL; 11/01/2024 12:31 am INDICATION: Signs/Symptoms:fall/s eizure. COMPARISON: Radiograph of the chest 10/31/2024. ACCESSION NUMBER(S): [id number]; [id number]; [id number] ORDERING CLINICIAN: EDNA CHOUDHARY TECHNIQUE: Contiguous axial [...] Horacio Loera. This study was interpreted at [place], [place]. MACRO: None. Signed by: Julián Mendez 11/01/2024 1:14 AM Dictation workstation: [id number] [facility] CT HEAD WO IV CONTRASTon CT HEAD WO IV CONTRAST Interpreted By: Julián Mendez and Ritchie Brandon STUDY: CT HEAD WO IV CONTRAST; 10/31/2024 9:49 pm INDICATION: Signs/Symptoms:mult falls, LOC vs seizure COMPARISON: None. ACCESSION NUMBER(S): [id number] ORDERING CLINICIAN: NOAH COLVIN TECHNIQUE: Axial noncontrast [...] Horacio Loera. This study was interpreted at [place], [place]. MACRO: None. Signed by: Julián Mendez 10/31/2024 10:31 PM Dictation workstation: [id number] [facility] CT Head WO contraston 2024 CT HEAD: *No acute intracranial abnormality or calvarial fracture. I personally reviewed the images/study and I agree with the findings as stated by resident Horacio Loera. This study was interpreted at [place], [place]. MACRO: None. Signed by: Julián Mendez 10/31/2024 10:31 PM Dictation workstation: [id number] MMODAL Interpreted By: Julián Mendez and Ritchie Brandon STUDY: CT HEAD WO IV CONTRAST; 10/31/2024 9:49 pm INDICATION: Signs/Symptoms:mult falls, LOC vs seizure COMPARISON: None. ACCESSION NUMBER(S): [id number] ORDERING CLINICIAN: NOAH COLVIN TECHNIQUE: Axial noncontrast [...] LOC vs seizure COMPARISON: None. ACCESSION NUMBER(S): [id number] ORDERING CLINICIAN: NOAH COLVIN TECHNIQUE: Axial noncontrast [...] Horacio Loera. This study was interpreted at [place], [place]. MACRO: None. Signed by: Julián Mendez 10/31/2024 10:31 PM Dictation workstation: [id number] [facility] Work Phone: [facility] Work Phone: CT LUMBAR SPINE RETROSPECTIV E RECONSTRUCTION PROTOCOLon 10-31-2024 CT LUMBAR SPINE RETROSPECTIVE RECONSTRUCTION PROTOCOL Interpreted By: Julián Mendez and Ritchie Brandon STUDY: CT CHEST ABDOMEN PELVIS W IV CONTRAST; CT THORACIC SPINE RETROSPECTIVE RECONSTRUCTION PROTOCOL; CT LUMBAR SPINE RETROSPECTIVE RECONSTRUCTION PROTOCOL; 11/01/2024 12:31 am INDICATION: Signs/Symptoms:fall/s eizure. COMPARISON: Radiograph of the chest 10/31/2024. ACCESSION NUMBER(S): [id number]; [id number]; [id number] ORDERING CLINICIAN: EDNA CHOUDHARY TECHNIQUE: Contiguous axial [...] Horacio Loera. This study was interpreted at [place], [place]. MACRO: None. Signed by: Julián Mendez 11/01/2024 1:14 AM Dictation workstation: [id number] Normal [facility] CT THORACIC SPINE RETROSPECT IVONE RECONSTRUCTION PROTOCOLon 10-31-2024 CT THORACIC SPINE RETROSPECTIVE RECONSTRUCTION PROTOCOL Interpreted By: Julián Mendez and Ritchie Brandon STUDY: CT CHEST ABDOMEN PELVIS W IV CONTRAST; CT THORACIC SPINE RETROSPECTIVE RECONSTRUCTION PROTOCOL; CT LUMBAR SPINE RETROSPECTIVE RECONSTRUCTION PROTOCOL; 11/01/2024 12:31 am INDICATION: Signs/Symptoms:fall/s eizure. COMPARISON: Radiograph of the chest 10/31/2024. ACCESSION NUMBER(S): [id number]; [id number]; [id number] ORDERING CLINICIAN: EDNA CHOUDHARY TECHNIQUE: Contiguous axial [...] Horacio Loera. This study was interpreted at [place], [place]. MACRO: None. Signed by: Julián Mendez 11/01/2024 1:14 AM Dictation workstation: [id number] [facility] Comprehensive metabolic 2000 panelon 10-31-2024 Albumin BCP dye [Mass/Vol] 4.8 g/dL 3.4 - 5.0 g/dL [facility] ALP [Catalytic activity/Vol] 89 U/L 33 - 120 U/L [facility] ALT With P-5'-P [Catalytic activity/Vol] 39 U/L 10 - 52 U/L [facility] Comment on above: Patients treated wit h Sulfasalazine may generate falsely decreased results for ALT. Anion gap [Moles/Vol] 12 mmol/L 10 - 20 mmol/L [facility] AST With P-5'-P [Catalytic activity/Vol] 24 U/L 9 - 39 U/L [facility] Bilirubin [Mass/Vol] 0.6 mg/dL 0.0 - 1 .2 mg/dL [facility] Calcium [Mass/Vol] 10.1 mg/dL 8.6 - 10. 6 mg/dL [facility] Chloride [Moles/Vol] 98 mmol/L 98 - 10 7 mmol/L [facility] CO2 [Moles/Vol] 29 mmol/L 21 - 32 mmol/L [facility] Creatinine [Mass/Vol] 1.14 mg/dL 0.50 - 1.30 mg/dL [facility] GFR/1.73 sq M.predicted among non-blacks MDRD (S/P/Bld) [Vol rate/Area] 88 mL/min/{1.73_m2} - PINF [facility] Comment on above: Calculations of davey mated GFR are performed using the 2020 CKD-EPI Study Refit equation without the race variable for the IDMS-Traceable creatinine methods. https://jasn.asnjournals.org/content/early//ASN.00629 84412 Glucose [Mass/Vol] 101 mg/dL High 74 - 99 mg/dL [facility] Interpretation and review of laboratory results Abnormal [facility] Potassium [Moles/Vol] 4.4 mmol/L 3.5 - 5.3 mmol/L [facility] Protein [Mass/Vol] 8.2 g/dL 6.4 - 8.2 g/dL [facility] Sodium [Moles/Vol] 135 mmol/L Low 136 - 145 mmol/L [facility] Urea nitrogen [Mass/Vol] 15 mg/dL 6 - 23 mg/dL [facility] Albumin BCP dye [Mass/Vol] 4.8 g/dL Normal 3.4-5.0 [facility] Comment on above: Performed By: #### 2 4323-8 #### MIRANDA Sims ([id number]) [facility]) [address] [place] [address]20 ALP [Catalytic activity/Vol] 89 U/L Normal 33-120 [facility] Comment on above: Performed By: #### 2 4323-8 #### MIRANDA Sims ([id number]) [facility]) [address] [place] [address] 23597 ALT With P-5'-P [Catalytic activity/Vol] 39 U/L Normal 10-52 [facility] Comment on above: Result Comment: Chloe ents treated with Sulfasalazine may generate falsely decreased results for ALT. Performed By: #### 2 4323-8 #### MIRANDA Sims ([id number]) [facility]) [address] [place] [address] 10871 Anion gap [Moles/Vol] 12 mmol/L Normal 10-20 [facility] Comment on above: Performed By: #### 2 4323-8 #### MIRANDA Sims ([id number]) [facility]) [address] [place] [address] 72453 AST With P-5'-P [Catalytic activity/Vol] 24 U/L Normal 9-39 [facility] Comment on above: Performed By: #### 2 4323-8 #### MIRANDA GONZALEZ L ([id number]) [facility]) [address] [place] [address] 49435 Bilirubin [Mass/Vol] 0.6 mg/dL Normal 0.0-1.2 [place] Comment on above: Performed By: #### 2 4323-8 #### MIRANDA Sims ([id number]) [facility]) [address] [place] [address] Calcium [Mass/Vol] 10.1 mg/dL Normal 8.6-10.6 [facility] Comment on above: Performed By: #### 2 4323-8 #### MIRANDA GONZALEZ L ([id number]) [facility] ([facility]) [address] [place] [address] Chloride [Moles/Vol] 98 mmol/L Normal 98-107 [place] Comment on above: Performed By: #### 2 4323-8 #### MIRANDA STEVEMOTZER L ([id number]) [facility] ([facility]) [address] [place] [address] CO2 [Moles/Vol] 29 mmol/L Normal 21-32 [facility] Comment on above: Performed By: #### 2 4323-8 #### MIRANDA GONZALEZ L ([id number]) [facility] ([facility]) [address] [place] [address] Creatinine [Mass/Vol] 1.14 mg/dL Normal 0.50-1.30 [facility] Comment on above: Performed By: #### 2 4323-8 #### MIRANDA CARDTZER L ([id number]) [facility] ([facility]) [address] [place] [address] 41872 Glomerular filtration rate/1.73 sq M.predicted 88 mL/min/1.73m*2 Normal >60 [facility] Comment on above: Result Comment: Calc ulations of estimated GFR are performed using the 2020 CKD-EPI Study Refit equation without the race variable for the IDMS-Traceable creatinine methods. https://jasn.asnjournals.org/content//ASN.46972 83424 Performed By: #### 2 4323-8 #### MIRANDA CARDTZBETTYE L ([id number]) [facility] ([facility]) [address] [place] [address] Glucose [Mass/Vol] 101 mg/dL High 74-99 [facility] Comment on above: Performed By: #### 2 4323-8 #### MIRANDA Sims ([id number]) [facility] ([facility]) [address] [place] [address] 39709 Potassium [Moles/Vol] 4.4 mmol/L Normal 3.5-5.3 [facility] Comment on above: Performed By: #### 2 4323-8 #### MIRANDA Sims ([id number]) [facility] ([facility]) [address] [place] [address] 66058 Protein [Mass/Vol] 8.2 g/dL Normal 6.4-8.2 [facility] Comment on above: Performed By: #### 2 4323-8 #### MIRANDA Sims ([id number]) [facility] ([facility]) [address] [place] [address] 52718 Sodium [Moles/Vol] 135 mmol/L Low 136-145 [facility] Comment on above: Performed By: #### 2 4323-8 #### MIRANDA Sims ([id number]) [facility] ([facility]) [address] [place] [address] 48982 Urea nitrogen [Mass/Vol] 15 mg/dL Normal 6-23 [facility] Comment on above: Performed By: #### 2 4323-8 #### MIRANDA Sims ([id number]) [facility] ([facility]) [address] [place] [address] 73510 ECG 12 leadOrdered By: Linda Rich on 10-31-2024 Atrial Rate 99 BPM [facility] Work Phone: P [place] 58 degrees [facility] Work Phone: P Offset 200 ms [facility] Work Phone: P Onset 148 [facility] Work Phone: CO Interval 156 ms [facility] Work Phone: [phone] Q Onset 226 ms [facility] Work Phone: QRS Count 16 beats [facility] Work Phone: QRS Duration 92 ms [facility] Work Phone: QT Interval 340 ms [facility] Work Phone: QTC Calculation(Bazett) 436 ms [facility] Work Phone: QTC Fredericia 401 ms [facility] Work Phone: R [place] 55 degrees [facility] Work Phone: T [place] 56 degrees [facility] Work Phone: T Offset 396 ms [facility] Work Phone: Ventricular Rate 99 BPM [facility] Work Phone: [facility] Work Phone: ECG 12 leadon 10-31-2024 Normal sinus rhythm Nonspecific ST abnormality Abnormal ECG No previous ECGs available See ED provider note for full interpretation and clinical correlation Confirmed by Linda Rich ([id number]) on 10/31/2024 7:19:36 PM MUSE Linda Rich C, MACHINE [employer]PECT[employer]-[facility] - 10/31/2024 Normal sinus rhythm Nonspecific ST abnormality Abnormal ECG No previous ECGs available See ED provider note for full interpretation and clinical correlation Confirmed by Linda Rich ([id number]) on 10/31/2024 7:19:36 PM [facility] Work Phone: Ethanolon 10-31-2024 Ethanol [Mass/Vol] mg/dL NINF - 10 mg/dL [facility] Comment on above: For medical use only . Ethanol [Mass/Vol] mg/dL Normal <=10 [facility] Comment on above: Result Comment: For medical use only. Performed By: #### 5 643-2 ####MIRANDA Sims ([id number])[facility] ([facility])[address] [place] [address] Ethanol [Mass/Vol]on 025 Interpretation and review of laboratory results Normal [facility] Gas panel (BldV)on 5 Anion gap 4 (BldV) [Moles/Vol] 9 mmol/L Low 10.0 - 25.0 mmol/L [facility] Base excess Calc (BldV) [Moles/Vol] 2.7 mmol/L -2.0 - 3.0 mmol/L [facility] Calcium.ionized (BldV) [Moles/Vol] 1.23 mmol/L 1.10 - 1.33 mmol/L [facility] Chloride (BldV) [Moles/Vol] 99 mmol/L 98 - 107 mmol/L [facility] CO2 (BldV) [Partial pressure] 54 mm[Hg] High [facility] Glucose [Mass/Vol] 110 mg/dL High 74 - 99 mg/dL [facility] HCO3 (Bld) [Moles/Vol] 29.8 mmol/L High 22.0 - 26.0 mmol/L [facility] Hematocrit Est (Bld) [Volume fraction] 48 % 41.0 - 52.0 % [facility] Hemoglobin (Bld) [Mass/Vol] 16.1 g/dL 13.5 - 17.5 g/dL [facility] Inhaled oxygen concentration 21 % [facility] Interpretation and review of laboratory results Abnormal [facility] Lactate (BldV) [Moles/Vol] 1.3 mmol/L 0.4 - 2.0 mmol/L [facility] Oxygen (BldV) [Partial pressure] 24 mm[Hg] Low [facility] Oxygen saturation in Venous blood 37 % Low 45 - 75 % [facility] Oxyhemoglobin (BldV) [Mass fraction] 36.4 % Low 45.0 - 75.0 % [facility] pH (BldV) 7.35 [pH] 7.33 - 7.43 pH [facility] Potassium (BldV) [Moles/Vol] 4.6 mmol/L 3.5 - 5.3 mmol/L [facility] Sodium (BldV) [Moles/Vol] 133 mmol/L Low 136 - 145 mmol/L [facility] Anion gap 4 (BldV) [Moles/Vol] 9.0 mmol/L Low 10.0-25.0 [facility] Comment on above: Performed By: #### 2 4339-4 #### MIRANDA Sims ([id number]) [facility] ([facility]) [address] [place] [address] 82886 Base excess Calc (BldV) [Moles/Vol] 2.7 mmol/L Normal -2.0-3.0 [facility] Comment on above: Performed By: #### 2 4339-4 #### MIRANDA Sims ([id number]) [facility] ([facility]) [address] [place] [address] 93464 Calcium.ionized (BldV) [Moles/Vol] 1.23 mmol/L Normal 1.10-1.33 [facility] Comment on above: Performed By: #### 2 4339-4 #### MIRANDA Sims ([id number]) [facility] ([facility]) [address] [place] [address] 21273 Chloride (BldV) [Moles/Vol] 99 mmol/L Normal 98-107 [facility] Comment on above: Performed By: #### 2 4339-4 #### MIRANDA Sims ([id number]) [facility] ([facility]) [address] [place] [address] 96390 CO2 (BldV) [Partial pressure] 54 mm Hg High 41-51 [facility] Comment on above: Performed By: #### 2 4339-4 #### MIRANDA Sims ([id number]) [facility] ([facility]) [address] [place] [address] 84279 Glucose [Mass/Vol] 110 mg/dL High 74-99 [facility] Comment on above: Performed By: #### 2 4339-4 #### MIRANDA Sims ([id number]) [facility] ([facility]) [address] [place] [address] 21295 HCO3 (Bld) [Moles/Vol] 29.8 mmol/L High 22.0-26.0 [facility] Comment on above: Performed By: #### 2 4339-4 #### MIRANDA Sims ([id number]) [facility] ([facility]) [address] [place] [address] 43580 Hematocrit Est (Bld) [Volume fraction] 48.0 % Normal 41.0-52.0 [facility] Comment on above: Performed By: #### 2 4339-4 #### MIRANDA Sims ([id number]) [facility] ([facility]) [address] [place] [address] 34875 Hemoglobin (Bld) [Mass/Vol] 16.1 g/dL Normal 13.5-17.5 [facility] Comment on above: Performed By: #### 2 4339-4 #### MIRANDA Sims ([id number]) [facility] ([facility]) [address] [place] [address] 99812 Inhaled oxygen concentration 21 % Normal [facility] Comment on above: Performed By: #### 2 4339-4 #### MIRANDA Sims ([id number]) [facility] ([facility]) [address] [place] [address] 64378 Lactate (BldV) [Moles/Vol] 1.3 mmol/L Normal 0.4-2.0 [facility] Comment on above: Performed By: #### 2 4339-4 #### MIRANDA Sims ([id number]) [facility] ([facility]) [address] [place] [address] 94031 Oxygen (BldV) [Partial pressure] 24 mm Hg Low 35-45 [facility] Comment on above: Performed By: #### 2 4339-4 #### MIRANDA Sims ([id number]) [facility] ([facility]) [address] [place] [address] 82593 Oxygen saturation in Venous blood 37 % Low 45-75 [facility] Comment on above: Performed By: #### 2 4339-4 #### MIRANDA GONZALEZ L ([id number]) [facility] ([facility]) [address] [place] [address] 37024 Oxyhemoglobin (BldV) [Mass fraction] 36.4 % Low 45.0-75.0 [facility] Comment on above: Performed By: #### 2 4339-4 #### MIRANDA Sims ([id number]) [facility] ([facility]) [address] [place] [address] 23691 pH (BldV) 7.35 [pH] Normal 7.33-7.43 [facility] Comment on above: Performed By: #### 2 4339-4 #### MIRANDA Sims ([id number]) [facility] ([facility]) [address] [place] [address] 38950 Potassium (BldV) [Moles/Vol] 4.6 mmol/L Normal 3.5-5.3 [facility] Comment on above: Performed By: #### 2 4339-4 #### MIRANDA Sims ([id number]) [facility] ([facility]) [address] [place] [address] 01132 Sodium (BldV) [Moles/Vol] 133 mmol/L Low 136-145 [facility] Comment on above: Performed By: #### 2 4339-4 #### MIRANDA Sims ([id number]) [facility] ([facility]) [address] [place] [address] 43687 Glucose Test strip manual (B ld) [Mass/Vol]on 10-31-2024 Glucose [Mass/Vol] 108 mg/dL High 74 - 99 mg/dL [facility] Interpretation and review of laboratory results Abnormal [facility] Glucose [Mass/Vol] 108 mg/dL High 74-99 [facility] Comment on above: Performed By: #### 2 341-6 #### MIRANDA Sims ([id number]) [facility]) [address] [place] [address] 80085 Magnesiumon 10-31-2024 Magnesium [Mass/Vol] 2.37 mg/dL 1.60 - 2.40 mg/dL [facility] Magnesium [Mass/Vol] 2.37 mg/dL Normal 1.60-2.40 [place] Comment on above: Performed By: #### 1 9123-9 #### MIRANDA Sims ([id number]) [facility]) [address] [place] [address] Magnesium [Mass/Vol]on 10-31 Interpretation and review of laboratory results Normal [facility] No Panel Informationon 10-31 Radiology Study observation (narrative) [facility] Work Phone: [facility] Comminuted distal fibular fracture with additional medial malleolar avulsion injury. Suspected medial clear space widening. No evidence of syndesmotic widening. MACRO: None Signed by: Bryson Fam 10/31/2024 6:41 PM Dictation workstation: [id number] MMODAL Interpreted By: Bryson Fam, STUDY: XR TIBIA FIBULA RIGHT 2 VIEWS; XR ANKLE RIGHT 3+ VIEWS; XR KNEE RIGHT 4+ VIEWS; ; 10/31/2024 6:31 pm; 10/31/2024 6:32 pm INDICATION: Signs/Symptoms:pain after injury; Signs/Symptoms:r/o fx. COMPARISON: None. ACCESSION NUMBER(S): [id number]; [id number]; [id number] ORDERING CLINICIAN: NOAH STUART FINDINGS: Four views [...] injury; Signs/Symptoms:r/o fx. COMPARISON: None. ACCESSION NUMBER(S): [id number]; [id number]; [id number] ORDERING CLINICIAN: NOAH STUART FINDINGS: Four views [...] Bryson Fam 10/31/2024 6:41 PM Dictation workstation: [id number] [facility] Work Phone: Radiology Study observation (narrative) [facility] Work Phone: No Panel InformationOrdered By: Bryson Fam on 10-31-2024 [facility] Work Phone: PT and aPTT panel Coag (PPP) on 10-31-2024 aPTT Coag (PPP) [Time] 26 s [facility] INR Coag (PPP) [Relative time] 1 {INR} 0.9 - 1.1 [facility] Interpretation and review of laboratory results Normal [facility] PT Coag (PPP) [Time] 11 s [facility] The APTT is no longe r used for monitoring Unfractionated Heparin Therapy. For monitoring Heparin Therapy, use the Heparin Assay. [facility] aPTT Coag (PPP) [Time] 26 s Normal 26-36 [facility] Comment on above: Order Comment: The A PTT is no longer used for monitoring Unfractionated Heparin Therapy. For monitoring Heparin Therapy, use the Heparin Assay. Performed By: #### 3 4529-8 ####MIRANDA Sims ([id number])[facility] ([facility])[address] [place] [address] INR Coag (PPP) [Relative time] 1.0 Normal 0.9-1.1 [facility] Comment on above: Order Comment: The A PTT is no longer used for monitoring Unfractionated Heparin Therapy. For monitoring Heparin Therapy, use the Heparin Assay. Performed By: #### 3 4529-8 ####MIRANDA ARANDAER L ([id number])[facility] ([facility])[address] [place] [address] PT Coag (PPP) [Time] 11.0 s Normal 9.8-12.4 [place] Comment on above: Order Comment: The A PTT is no longer used for monitoring Unfractionated Heparin Therapy. For monitoring Heparin Therapy, use the Heparin Assay. Performed By: #### 3 4529-8 ####MIRANDA STEVEMOTZER L ([id number])[facility] ([facility])[address] [place] [address] Tropinin I.cardiac panel Hig h sensitivity methodon 10-31-2024 Interpretation and review of laboratory results Normal [facility] Less than 99th percentile of normal range [...] performed using a different testing methodology at [facility] than at other [facility]. Direct result comparisons should only be made within the same method. [facility] Interpretation and review of laboratory results Normal [facility] Less than 99th percentile of normal range [...] performed using a different testing methodology at [facility] than at [facility]. Direct result comparisons should only be made within the same method. [facility] Troponin I, High Sensitivity , Initialon 10-31-2024 Tropinin I.cardiac panel High sensitivity method ng/L 0 - 53 ng/L [facility] Troponin I.cardiac panelon 0 10-31-2024 Tropinin I.cardiac panel High sensitivity method <3 Normal 0-53 [facility] Comment on above: Order Comment: [...] is performed using a differenttesting methodology at [facility] Direct result comparisons should onlybe made within the same method. Performed By: #### 8 9577-1 ####MIRANDA Sims ([id number])[facility] ([facility])[address] [place] [address] Tropinin I.cardiac panel High sensitivity method <3 Normal 0-53 [facility] Comment on above: Order Comment: [...] performed using a different testing methodology at [facility] than at other [facility]. Direct result comparisons should only be made within the same method. Performed By: #### 8 9577-1 #### MIRANDA Sims ([id number]) [facility] ([facility]) [address] [place] [address] Troponin, High Sensitivity, 1 Houron 10-31-2024 Tropinin I.cardiac panel High sensitivity method ng/L 0 - 53 ng/L [facility] XR ANKLE RIGHT 3+ VIEWSon XR ANKLE RIGHT 3+ VIEWS Interpreted By: Julián Mendez and Ritchie Brandon STUDY: XR ANKLE RIGHT 3+ VIEWS; ; 10/31/2024 9:38 pm INDICATION: Signs/Symptoms:post reduction. COMPARISON: Radiograph of the right ankle 10/31/2024, 6:32 p.m.. ACCESSION NUMBER(S): [id number] ORDERING CLINICIAN: NOAH COLVIN TECHNIQUE: Three views [...] Horacio Loera. This study was interpreted at [facility] [place], [place]. MACRO: None Signed by: Julián Mendez 10/31/2024 10:25 PM Dictation workstation: [id number] [facility] XR ANKLE RIGHT 3+ VIEWS Interpreted By: Bryson Fam, STUDY: XR TIBIA FIBULA RIGHT 2 VIEWS; XR ANKLE RIGHT 3+ VIEWS; XR KNEE RIGHT 4+ VIEWS; ; 10/31/2024 6:31 pm; 10/31/2024 6:32 pm INDICATION: Signs/Symptoms:pain after injury; Signs/Symptoms:r/o fx. COMPARISON: None. ACCESSION NUMBER(S): [id number]; [id number]; [id number] ORDERING CLINICIAN: NOAH STUART FINDINGS: Four views [...] Bryson Fam 10/31/2024 6:41 PM Dictation workstation: [id number] [facility] XR Ankle - right 3 Viewson 0 10-31-2024 *Comminuted fibula fracture with similar alignment compared to prior imaging. Previously described medial malleolus avulsion fracture is not well visualized, likely obscured by overlying cast material. I personally reviewed the images/study and I agree with the findings as stated by resident Horacio Loera. This study was interpreted at [place], [place]. MACRO: None Signed by: Julián Mendez 10/31/2024 10:25 PM Dictation workstation: [id number] [facility] MMODAL Interpreted By: Julián Mendez and Ritchie Brandon STUDY: XR ANKLE RIGHT 3+ VIEWS; ; 10/31/2024 9:38 pm INDICATION: Signs/Symptoms:post reduction. COMPARISON: Radiograph of the right ankle 10/31/2024, 6:32 p.m.. ACCESSION NUMBER(S): [id number] ORDERING CLINICIAN: NOAH COLVIN TECHNIQUE: Three views [...] right ankle 10/31/2024, 6:32 p.m.. ACCESSION NUMBER(S): [id number] ORDERING CLINICIAN: NOAH COLVIN TECHNIQUE: Three views [...] Horacio Loera. This study was interpreted at [place], [place]. MACRO: None Signed by: Julián Mendez 10/31/2024 10:25 PM Dictation workstation: [id number] [facility] Work Phone: Radiology Study observation (narrative) [facility] Work Phone: XR Ankle - right 3 ViewsOrde red By: Julián Mendez on 10-31-2024 [facility] Work Phone: XR CHEST 1 VIEWon 10-31-2024 XR CHEST 1 VIEW Interpreted By: Bryson Fam, STUDY: XR CHEST 1 VIEW; 10/31/2024 6:32 pm INDICATION: Signs/Symptoms:preop. COMPARISON: None. ACCESSION NUMBER(S): [id number] ORDERING CLINICIAN: IKE STUART FINDINGS: AP radiograph of the chest was provided. CARDIOMEDIASTINAL SILHOUETTE: Cardiomediastinal silhouette is normal in size and configuration. LUNGS: No focal consolidation, pleural effusion, or pneumothorax. ABDOMEN: No remarkable upper abdominal findings. BONES: No acute osseous changes. IMPRESSION: 1. No evidence of acute cardiopulmonary process. MACRO: None Signed by: Bryson Fam 10/31/2024 6:41 PM Dictation workstation: [id number] [facility] XR Chest Single viewon 10-31 1. No evidence of acute cardiopulmonary process. MACRO: None Signed by: Bryson Fam 10/31/2024 6:41 PM Dictation workstation: [id number] [facility] MMODAL Interpreted By: Bryson Fam, STUDY: XR CHEST 1 VIEW; 10/31/2024 6:32 pm INDICATION: Signs/Symptoms:preop. COMPARISON: None. ACCESSION NUMBER(S): [id number] ORDERING CLINICIAN: IKE STUART FINDINGS: AP radiograph [...] pm INDICATION: Signs/Symptoms:preop. COMPARISON: None. ACCESSION NUMBER(S): [id number] ORDERING CLINICIAN: IKE STUART FINDINGS: AP radiograph of the chest was provided. CARDIOMEDIASTINAL SILHOUETTE: Cardiomediastinal silhouette is normal in size and configuration. LUNGS: No focal consolidation, pleural effusion, or pneumothorax. ABDOMEN: No remarkable upper abdominal findings. BONES: No acute osseous changes. IMPRESSION: 1. No evidence of acute cardiopulmonary process. MACRO: None Signed by: Bryson Fam 10/31/2024 6:41 PM Dictation workstation: [id number] [facility] Work Phone: [facility] Work Phone: XR KNEE RIGHT 4+ VIEWSon XR KNEE RIGHT 4+ VIEWS Interpreted By: Bryson Fam, STUDY: XR TIBIA FIBULA RIGHT 2 VIEWS; XR ANKLE RIGHT 3+ VIEWS; XR KNEE RIGHT 4+ VIEWS; ; 10/31/2024 6:31 pm; 10/31/2024 6:32 pm INDICATION: Signs/Symptoms:pain after injury; Signs/Symptoms:r/o fx. COMPARISON: None. ACCESSION NUMBER(S): [id number]; [id number]; [id number] ORDERING CLINICIAN: NOAH STUART FINDINGS: Four views [...] Bryson Fam 10/31/2024 6:41 PM Dictation workstation: [id number] [facility] XR TIBIA FIBULA RIGHT 2 VIEW Son 10-31-2024 XR TIBIA FIBULA RIGHT 2 VIEWS Interpreted By: Bryson Fam, STUDY: XR TIBIA FIBULA RIGHT 2 VIEWS; XR ANKLE RIGHT 3+ VIEWS; XR KNEE RIGHT 4+ VIEWS; ; 10/31/2024 6:31 pm; 10/31/2024 6:32 pm INDICATION: Signs/Symptoms:pain after injury; Signs/Symptoms:r/o fx. COMPARISON: None. ACCESSION NUMBER(S): [id number]; [id number]; [id number] ORDERING CLINICIAN: NOAH STUART FINDINGS: Four views [...] Bryson Fam 10/31/2024 6:41 PM Dictation workstation: [id number] [facility] XR Tibia and Fibula - right 2 Viewson 10-31-2024 Radiology Study observation (narrative) [facility] Work Phone: Chest PA and Lateralon 03-27 Chest PA and Lateral [facility] Imaging Services [address] [place] [address] [id number] Chest PA and Lateral MR#: [id number] Acct: [id number] Name: JAVED REYES Rep #: [id number] : 1995 M 28 From: Naomi dillon MD PCP: Care Physician,No Primary Status: REG ER Study: Chest PA and Lateral Date of Exam: 03/27/24 Exam# [id number] Ordering Dr: German Zhang DO [id number] HISTORY: Cough. TECHNIQUE: XR Chest 2 Views. 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 Medical Records Department [address] [place] [address] Emergency Department Summary 03/27/24 MR#: [id number] Acct: [id number] Name: JAVED REYES Rep #: [id number] : 1995 28 From: German Zhang DO [...] Patient denies any fevers or chills. ROS [facility] ED Constitutional Constitutional ED: Denies chills or [...] Allergic/Immunologic ED: Denies mouth swelling or urticaria [facility] Medical History (Updated 03/27/24 @ [...] (Updated 03/27/24 @ 11:[address] German Zhang, DO) Hx of tonsillectomy Social History Smoking [...] Zithromax. Pa (more content not included)... Normal [facility] M100.677on 03-27-2024 M100.677 Negative Normal [facility] Comment on above: Performed By: #### M 100.678, M100.677 #### [facility] [address] [place], [address] M100.678on 03-27-2024 M100.678 Pending SARS-CoV-2 (COVID 19) Negative INFLUENZA A Negative INFLUENZA B Negative RSV PCR Negative Normal [facility] Comment on above: Performed By: #### M 100.678, M100.677 #### [facility] [address] [place], [place], [address] ED NOTEon 09-02-2023 ED NOTE HNO ID: [id number] Author: FLAQUITO CHOI RN Service: Emergency Medicine [...] 2023 TIME: 8:32 PM Normal [facility] ED PROV NOTEon 09-02-2023 ED PROV NOTE HNO ID: [id number] Author: LIBERTAD SALES MD Service: Emergency Medicine [...] sinusitis, unspecified location COVID-19 test performed per [facility] Macy policy for suspected COVID community exposure. MDM [...] few days. 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 Normal [facility] FLUABV+SARS-CoV-2+RSV Pnl Re sp TOMAS+probeon 09-02-2023 FLUABV+SARS-CoV-2+RSV Pnl Resp TOMAS+probe COVID 19 RESULT: Not detected The method used is RT-PCR or an equivalent NAAT method. Reference Range(the expected result in uninfected individuals): Not detected INFLUENZA A PCR: Not detected INFLUENZA B PCR: Not detected RSV PCR: Not detected Normal [facility] Comment on above: Performed By: #### 9 5941-1 #### [facility] CLIA [id number] [address] [place] [address] [facility] Vital Signs Date Time Vital Sign Value Performing Clinician Facility 11-06-2024 15:30-0400 Body temperature 97.3 [degF] Noah Colvin MD Work Phone: [facility] 11-06-2024 15:30-0400 Diastolic blood pressure 75 mm[Hg] Noah Colvin MD Work Phone: [facility] 11-06-2024 15:30-0400 Heart rate 70 /min Noah Colvin MD Work Phone: [facility] 11-06-2024 15:30-0400 Respiratory rate 15 /min Noah Colvin MD Work Phone: [facility] 11-06-2024 15:30-0400 SaO2% (BldA) [Mass fraction] 99 % Noah Colvin MD Work Phone: [facility] 11-06-2024 15:30-0400 Systolic blood pressure 109 mm[Hg] Noah Colvin MD Work Phone: [facility] 10-31-2024 19:12-0400 Body temperature 37 Noah Colvin MD Work Phone: [facility] 10-31-2024 19:05-0400 Body temperature 37.0 degrees Celsius [facility] Comment on above: Performed By: #### [id number] #### MIRANDA Sims ([id number]) [facility] ([facility]) [address] [place] [address] 10-31-2024 16:43-0400 Body height 172.7 cm Noah Colvin MD Work Phone: [facility] 10-31-2024 16:43-0400 Body mass index (BMI) [Ratio] 39.53 kg/m2 Noah Colvin MD Work Phone: [facility] 10-31-2024 16:43-0400 Body weight 117.94 kg Noah Colvin MD Work Phone: [facility] 02-23-2024 21:49-0400 Blood Pressure Location RAQUEL LOAIZA MD [facility] 02-23-2024 21:49-0400 Blood Pressure Method RAQUEL LOAIZA MD [facility] 02-23-2024 21:49-0400 Body height 172.7 cm RAQUEL LOAIZA MD [facility] 02-23-2024 21:49-0400 Body temperature 96.98 [degF] RAQUEL LOAIZA MD [facility] 02-23-2024 21:49-0400 Body weight 104.5 kg RAQUEL LOAIZA MD [facility] 02-23-2024 21:49-0400 Diastolic Blood Pressure Non-Invasive 78 mm[Hg] RAQUEL LOAIZA MD [facility] 02-23-2024 21:49-0400 Heart rate 98 /min RAQUEL LOAIZA MD [facility] 02-23-2024 21:49-0400 Respiratory rate 16 /min RAQUEL LOAIZA MD [facility] 02-23-2024 21:49-0400 Systolic Blood Pressure Non-Invasive 130 mm[Hg] RAQUEL LOAIZA MD [facility] Encounters Encounter Date Encounter Type Care Provider Facility Start: 11-12-2024 ambulatory No Primary Car e Physician Facility:[facility] Start: 11-08-2024 ambulatory No Primary Car e Physician Facility:[facility] Start: 11-07-2024 ambulatory Shabnam Davisi ty:[facility] Start: 10-31-2024 End: 11-06-2024 Evaluation and management of inpatient [facility] Comment on above: Displaced comminuted fracture of shaft of right fibula, initial encounter for closed fracture (Primary Dx); Alcohol use; Insomnia, unspecified type; Cigarette smoker; Drug-induced constipation Start: 10-31-2024 End: 10-31-2024 Emergency department patient visit NOAH COLVIN [facility] Start: 03-27-2024 End: 03-27-2024 Emergency department patient visit No Primary Care Physician Facility:[facility] Start: 02-23-2024 End: 02-23-2024 Emergency department patient visit RAQUEL LOAIZA MD [facility] Start: 09-02-2023 Emergency department patient visit Facility:[facility] Procedures Date Procedure Procedure Detail Performing [...] instr mnt chem analyzers pr date Edna A Jimmy PA-C Work Phone: Start: 11-01-2024 Ct cervical spine w/ o contrast material Edna A Jimmy PA-C Work Phone: Start: 11-01-2024 CT Thoracic spine WO contrast Edna A Jimmy PA-C Work Phone: Start: 11-01-2024 Ct thorax w/contrast material Edna A Jimmy PA-C Work Phone: Start: 10-31-2024 Blood [...] f 2) Zoster Vaccines (1 of 2) [facility] Start: 01-28-2025 Influenza vaccination Influenz a Vaccine (Season Ended) [facility] Start: 11-20-2024 End: 11-20-2024 Patient encounter procedure 11/20/2024 1:00 PM EDT Office Visit [facility] [id number] [facility] [address]th [place] [id number] Toña Catsillo PA-C [id number] [place] [address] [facility] Start: 01-29-2024 COVID-19 Vaccine ( season) COVID-19 Vaccine ( season) [facility] Start: 07-13-2020 Pneumococcal Vaccine : Pediatrics and At-Risk Adult Patients (2 of 2 - PCV) Pneumococcal Vaccine: Pediatrics and At-Risk Adult Patients (2 of 2 - PCV) [facility] Start: 2015 DTaP/Tdap/Td Vaccine s (1 - Tdap) DTaP/Tdap/Td Vaccines (1 - Tdap) [facility] Start: 2012 Hepatitis B Vaccines (1 of 3 - 19+ 3-dose series) Hepatitis B Vaccines (1 of 3 - 19+ 3-dose series) [facility] Start: 2011 Hepatitis C screening Hepatitis C Sc reening [facility] Start: 2006 Varicella vaccination Varicell a Vaccines (1 of 2 - 13+ 2-dose series) [facility] Start: 1994 MMR Vaccines (1 of 1 - Standard series) MMR Vaccines (1 of 1 - Standard series) [facility] Start: 1993 HIV screening HIV Screening [facility] Start: 1993 Lipid panel Lipid Panel [facility] Start: 1993 Yearly Adult Physical Yearly Adult P hysical [facility] Electrocardiogram, 12-lead PRN ACS symptoms Electrocardiogram, 12-lead PRN ACS symptoms ECG Routine As needed until discontinued starting 11/01/2024 [facility] Work Phone: Comment on above: As needed until disc ontinued starting 11/01/2024 End: 11-01-2024 Incentive spirometry Instruct Incentive spirometry Instruct Respiratory Care Routine Once for 1 Occurrences starting 11/01/2024 until 11/01/2024 [facility] Service Area Work Phone: Comment on above: Once for 1 Occurrenc es starting 11/01/2024 until 11/01/2024 Payers Date Payer Category Payer Medicaid MEDICAID [id number] 2024 Medicaid [id number] 2024 Self-pay 1997 Unknown [id number] 1993 Unknown [id number] 1993 Unknown [id number] 1993 Unknown [id number] Unknown [id number] Unknown [id number] Unknown [id number] Unknown [id number] Social History Date Type Detail Facility Start: 02-23-2024 Tobacco smoking status Light tobacco smoker (finding) [facility] Start: 1993 Sex Assigned At Male [facility] Start: 11-01-2024 Tobacco smoking status NHIS Smokes tobacco daily [facility] Start: 11-01-2024 Tobacco use and exposure Smokeless tobacco non-user [facility] Work Phone: Start: 11-01-2024 Alcoholic beverage intake Current drinker of alcohol (finding) [facility] Work Phone: Start: 11-01-2024 End: 11-02-2024 History of Social function [facility] Start: 11-01-2024 End: 11-02-2024 [facility] Utilities [facility] Has the Application Security, Piki, or [employer] threatened to shut off services in your home in past 12Mo Yes [facility] Within the last year , have you been afraid of your partner or ex-partner? No [facility] Work Phone: How often to you hav e a drink containing alcohol? 4 or more times a week [facility] Work Phone: How many standard dr inks containing alcohol do you have on a typical day? 7 to 9 [facility] Work Phone: How often do you hav e 6 or more drinks on 1 occasion? Weekly [facility] Work Phone: How hard is it for y ou to pay for the very basics like food, housing, medical care, and heating Not very hard [facility] (I/We) worried wheth er (my/our) food would run out before (I/we) got money to buy more. Often true [facility] Work Phone: In the past 12 month s, has lack of transportation kept you from medical appointments or from getting medications? No [facility] Work Phone: Start: 10-31-2024 Gender identity Identifies as male gender (finding) [facility] Work Phone: Start: 10-22-2024 End: 11-01-2024 Exposure to SARS-CoV-2 (event) Not sure [facility] Work Phone: Medical Equipment Procedure Code Equipment Code Equipment Origin al Text Equipment Identifier Dates Device, Syndemos is Fixation, [place] Synchfix P5 - [id number] Start: 11-01-2024 Device, Syndemos is Fixation, [place] Synchfix P5 - [id number] Start: 11-01-2024 Plate, Fibula, Distal Lateral, 2.7/3.5mm 137mm 8h, Right - [id number] Start: 11-01-2024 Screw, Cortex 2. 7mm, T8, 20mm - [id number] Start: 11-01-2024 Screw, Cortex 2. 7mm, T8, 16mm - [id number] Start: 11-01-2024 Screw, Cortex 2. 7mm, T8, 22mm - [id number] Start: 11-01-2024 Screw, Cory 3.5 X 14 Ti - [id number] Start: 11-01-2024 Screw, Cory 3.5 X 16 Ti - [id number] Start: 11-01-2024 Screw, Cory 3.5 X 18 Ti - [id number] Start: 11-01-2024 Screw, Locking, 2.7mm, T8, 8mm - [id number] Start: 11-01-2024 Screw, Locking, 2.7mm, T8, 12mm - [id number] Start: 11-01-2024 Screw, Locking, 2.7mm, T8, 16mm - [id number] Start: 11-01-2024 Functional Status Date Assessment Result Facility 11-01-2024 Total score [AUDIT-C] 025 6:42 PM JANINET Emily Fernandez RN [facility] Work Phone: 11-01-2024 Patient Health Questionnaire 2 item (PHQ-2) [Reported] [facility] Work Phone: 10-31-2024 [facility] s everity rating scale screener - recent [C-SSRS] [facility] Work Phone: 02-23-2024 Functional Status Assistive Device None [facility] 02-23-2024 Functional Status Standard Safet y ID band on, Allergy Band on, Call device within reach, Bed in low position, Wheels locked, personal items within reach, Bedside Cart Locked, Visitor at bedside [facility] Work Phone: Mental Status Date Assessment Result Facility 02-23-2024 Mental Status Orientation Oriented x 4 [facility] 02-23-2024 Mental Status [facility] Clinical Notes 02-23-2024 to 11-06-2024 Enoch Jean-Baptiste RN - 11/06/2024 4:19 PM Nitish Jean-Baptiste RN - 11/06/2024 4:19 PM Crispin Fitzgerald PA-C - 11/06/2024 1:48 PM [facility] - Enoch Jean-Baptiste RN - 11/06/2024 11:26 AM EDT Note Date & Type Note Facility 11-06-2024 Nurse Note Patient has been discharged to [facility] via community care ambulance. Vitals stable, all IV's removed and after visit summary reviewed with patient. [facility] 11-06-2024 Nurse Note Patient has been discharged to [facility] via community care ambulance. Vitals stable, all IV's removed and after visit summary reviewed with patient. documented in this encounter [facility] Work Phone: 11-06-2024 Hospital course Narrative Discharge [...] cleared for OR by trauma. Admitted to [facility]. Taken to OR on 11/01 for [...] Center 11/20/2024 1:00 PM Toña Castillo PA-C [id number] Academic Anna Fitzgerald PA-C documented in this encounter [facility] Work Phone: 11-06-2024 Plan of care note The patient's goals for the shift include The clinical goals for the shift include remain free from falls [facility] Work Phone: 11-06-2024 Miscellaneous Notes The patient's goals for the shift include The clinical goals for the shift include remain free from falls The patient's goals for the shift include The clinical goals for the shift include pain control CHW met with patient at bedside, Patient stated that he is interested in community resources in [facility], Patient stated he received out to a facility for rehab [place] near his area after discharge. CHW provided a [facility] resources to assist with food housing financial assistance etc, [employer] for guidances and support, Patient mentioned applying for disability. CHW provided disability resources information, including steps on how to apply online. CHW also provided the rehab center patient is interested contact information. Community Resource Name: Phone Number: Staff Member: Discussed the following topics on behalf of the patient: [] Behavioral Health Assistance [] Case Management [] Stuffing Machine Operator Assistance [] Digital Equity Assistance [] [...] Other: [insert comment here] Next Steps: MARIA D EJESUS Foster The patient's goals for the shift [...] next dressing change Outcome: Progressing Flowsheets (Taken 11/02/2024 0214) Decreased wound size/increased tissue granulation at next [...] cleared for OR by trauma. Admitted to [facility]. Taken to OR on 11/01 for [...] will sign off. documented in this encounter [facility] Work Phone: 11-06-2024 History of Presen t illness Narrative Transitional Healthcare Insurance Sales Agent Note: Patient discussed with medical team (trauma PA), per trauma team patient is medically ready. Discharge dispo: Plan for patient to discharge to [facility]. TCC met with patient introduced self and role to discuss discharge plan. TCC informed patient that he was accepted by [facility] and able to discharge to facility. Patient expressed wanting to discharge [facility] stating he wants to be in [facility] near his friends. TCC informed patient there has not been an official acceptance from [facility]. Patient requested for [facility] to follow up with facility stating he spoke with facilities admit team who stated facility is able to accept patient. TCC sent updated clinicals to patient's FOC and requested update on acceptance. Yeny Tomas ANALYTICAL TECHNICIAN [employer] Insurance Sales Agent [facility] TRAUMA SERVICE - PROGRESS NOTE Patient Name: [...] syndesmotic fixation 11/01 - NWB RLE in [facility] - follow up 2 weeks with [...] Trauma, Critical Care, Acute Care Surgery Floor: 81579 TSICU: [id number] CHIEF COMPLAINT / OVERNIGHT EVENTS: No acute [...] 7 days Lab Units 11/02/24 0818 11/01/24 11110/31/24 1905 SODIUM mmol/L 138 137 135* POTASSIUM [...] results, and imaging pertinent for today's encounter. [facility] TRAUMA SERVICE - PROGRESS NOTE Patient Name: [...] syndesmotic fixation 11/01 - NWB RLE in [facility] - follow up 2 weeks with [...] ox post-op - 2L NC this morning /8 - wean as tolerated - concern for [...] Trauma, Critical Care, Acute Care Surgery Floor: 16578 TSICU: [id number] CHIEF COMPLAINT / OVERNIGHT EVENTS: No acute [...] wiggle toes. Dorsi/plantarflexion 5/5 left lower extremity. Sewer Pipe Layer strength 5/5 bilaterally. sensation intact throughout all [...] or note in Epic regarding referral to [facility]. Pt was updated regarding this agency for those who need medical care and in a housing crisis. Objective Physical Exam Assessment & Plan SW will continue to follow pt for a safe discharge. SW will update Trauma Team regarding pt's pain and feelings about needing PT. CHRISTINE VARGAS [facility] TRAUMA SERVICE - PROGRESS NOTE Patient Name: [...] - ORIF right ankle with syndesmotic fixation 6/5 - NWB RLE in [place] - follow [...] Trauma, Critical Care, Acute Care Surgery Floor: 74059 TSICU: [id number] CHIEF COMPLAINT / OVERNIGHT EVENTS: No acute [...] lower extremity. Dorsi/plantarflexion 5/5 left lower extremity. Sewer Pipe Layer strength 5/5 bilaterally. sensation intact throughout all [...] 7 days Lab Units 11/02/24 0818 11/01/24 11110/31/24 1905 SODIUM mmol/L 138 137 135* POTASSIUM [...] were you homeless or living in a fdc (including now)? Y Transportation Needs In the past 12 months, has lack of transportation kept you from medical appointments or from getting medications? no In the past 12 months, has lack of transportation kept you from meetings, work, or from getting things needed for daily living? No Patient Choice Provider Choice list and CMS website (https://medicare.gov/care-comp are#search) for post-acute Quality and Resource Measure Data were provided and reviewed with: Patient PCP: NONE DME: none previously Pharmacy: none CUSTOMER SUPPORT CONSULTANT spoke with the patient on this date. Patient is homeless and hopping from couch to couch. Patient came in due to a displaced right fibula fracture. PT saw and recommended no needs. PT explained that patient is nonweight bearing to the right leg but is doing well on the walker. CUSTOMER SUPPORT CONSULTANT explained that this CUSTOMER SUPPORT CONSULTANT can order a walker for the patient. Patient explained that hed be interested in going to a physical rehab at discharge. CUSTOMER SUPPORT CONSULTANT explained that she could send out some referrals but that she cannot guarantee he will be accepted due to his age and the fact he doesn't have PT or OT needs. CUSTOMER SUPPORT CONSULTANT texted patient an [place] and SNF list. Patient also agreed to blanket referral. Patient confirmed he would find a place to say if he cannot go to SNF or [place]. Patient tested positive for cocaine and cannibis. CUSTOMER SUPPORT CONSULTANT spoke with him about it. 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 CUSTOMER SUPPORT CONSULTANT offered substance abuse resources or a referral to [facility], Patient explained that he doesn't not think he needs any resources and that he will just stop cold turkey. CUSTOMER SUPPORT CONSULTANT will continue to follow ADD 11/02/24 2:59PM CUSTOMER SUPPORT CONSULTANT attempted to call patient again to discuss alternate discharge plans besides SNF/AR since patient doesn't have therapy needs. CUSTOMER SUPPORT CONSULTANT was unable to reach patient via phone. CUSTOMER SUPPORT CONSULTANT spoke with patient's PA about making a [facility] referral for the patient. CUSTOMER SUPPORT CONSULTANT will continue to follow LISA Mims, [facility] Occupational Therapy Evaluation Patient Name: Javed Reyes Today's Date: 11/02/2024 Room: [address] [place] [address] Time Calculation Start Time: 930 Stop Time: [...] Adaptive Equipment: None Prior Function: Level of [place]: Independent with ADLs and functional transfers, Independent [...] Within Functional Limits, , and Outcome Measures: [facility] Daily Activity Putting on and taking off [...] 10:35 AM Moshe Mclain OT Rehab Office: [phone] Physical Therapy Physical Therapy Evaluation Patient Name: Javed Reyes Department: [place] [id number] Room: [address] [place] [address] Today's Date: 11/02/2024 Time Calculation Start Time: [...] Prior Function Per Pt/Caregiver Report Level of [place]: Independent with ADLs and functional transfers ADL [...] compensate.) Comments/Distance (ft) 1: 20ft Outcome Measures: [facility] Basic Mobility Turning from your back to [...] for closed fracture. Pharmacy reviewed the patient's [id number] medications and allergies for accuracy. Medications ADDED: None Medications CHANGED: None Medications REMOVED: None The list below reflects the updated ECD list. None The list below reflects the [...] any prescription medications, vitamins, supplements or OTCs ECD Anupam Ellis PharmD Transitions of Care Pharmacist 11/02/24 Secure Chat preferred If no response call [phone] or [employer] Rec [facility] TRAUMA SERVICE - PROGRESS NOTE Patient Name: [...] - ORIF right ankle with syndesmotic fixation 6/5 - NWB RLE in [place] - follow [...] Trauma, Critical Care, Acute Care Surgery Floor: 60737 TSICU: [id number] CHIEF COMPLAINT / OVERNIGHT EVENTS: No acute [...] 2/5 strength. Dorsi/plantarflexion 5/5 left lower extremity. Sewer Pipe Layer strength 5/5 bilaterally. sensation intact throughout all [...] results, and imaging pertinent for today's encounter. [facility] TRAUMA SERVICE - PROGRESS NOTE Patient Name: [...] during my rounds. documented in this encounter [facility] Work Phone: 11-05-2024 Plan of care note The patient's goals for the shift include The clinical goals for the shift include pain control [facility] 11-05-2024 Plan of care note CHW met with patient at bedside, Patient stated that he is interested in community resources in [facility], Patient stated he received out to a facility for [facility] near his area after discharge. CHW provided a [place] resources to assist with food housing financial assistance etc, [employer] for guidances and support, Patient mentioned applying for disability. CHW provided disability resources information, including steps on how to apply online. CHW also provided the rehab center patient is interested contact information. Community Resource Name: Phone Number: Staff Member: Discussed the following topics on behalf of the patient: [] Behavioral Health Assistance [] Case Management [] Stuffing Machine Operator Assistance [] Digital Equity Assistance [] [...] here] Next Steps: MARIA DE JESUS Foster [facility] 11-05-2024 Plan of care note The patient's [...] appropriate for maintaining nutritional needs Outcome: Progressing [facility] 11-02-2024 Plan of care note The patient's goals for the shift include The clinical goals for the shift include Pt pain will be contolled [facility] 11-02-2024 Hospital Discharg e instructions [...] orthopaedic clinic appointment line phone number is [phone]. Please do not delay in calling to [...] infected. Alternatively, you may blow a chair car driver, on the cool air setting, in order [...] an emergent evaluation. documented in this encounter [facility] Work Phone: 11-02-2024 Plan of care note [...] line(s)/device(s) Turn/reposition every 2 hours/use positioning/transfer devices [facility] 11-01-2024 Hospital Note Formatting of t his [...] cleared for OR by trauma. Admitted to [facility]. Taken to OR on 11/01 for R ankle ORIF. Patient to follow up outpatient in [address] Stuart. PT/OT worked with patient while admitted, pt discharged to SNF at time of discharge. Pt sent with scripts and meds continued, follow up appointments placed. Pain well controlled, eating and drinking well. Pt verbalized understanding of discharge instructions. [facility] Work Phone: 11-01-2024 assistant credit manager Note Neurology Final Assessment and Plan: [...] provided per primary. Neurology will sign off. [facility] Work Phone: 11-01-2024 Consult note Formatting of [...] [place] went to visit afterwards he [...] was a few seconds to minutes the administrative services specialist was present and at his side [...] given rapid COORDINATION: In both upper extremities, [id number] was intact without dysmetria or overshoot. GAIT: [...] Horacio Loera. This study was interpreted at [place], [place]. MACRO: None. Signed by: Julián Mendez 11/01/2024 1:14 AM Dictation workstation: [id number] CT lumbar spine retrospective reconstruction protocol Result Date: 11/01/2024 CT CHEST/ABDOMEN/PELVIS: *No acute traumatic injury. CT THORACIC AND LUMBAR SPINE: *No acute fracture or traumatic malalignment. I personally reviewed the images/study and I agree with the findings as stated by resident Horacio Loera. This study was interpreted at [place], [place]. MACRO: None. Signed by: Julián Mendez 11/01/2024 1:14 AM Dictation workstation: [id number] CT thoracic spine retrospective reconstruction protocol Result Date: 11/01/2024 CT CHEST/ABDOMEN/PELVIS: *No acute traumatic injury. CT THORACIC AND LUMBAR SPINE: *No acute fracture or traumatic malalignment. I personally reviewed the images/study and I agree with the findings as stated by resident Horacio Loera. This study was interpreted at [place], [place]. MACRO: None. Signed by: Julián Mendez 11/01/2024 1:14 AM Dictation workstation: [id number] CT cervical spine wo IV contrast Result Date: 11/01/2024 1. No acute fracture or traumatic malalignment of the cervical spine. I personally reviewed the images/study and resident's interpretation and I agree with the findings as stated by Anisa Mena MD (resident radiologist). This study was analyzed and interpreted at [place], [place]. MACRO: None. Signed by: Julián Mendez 11/01/2024 1:04 AM Dictation workstation: [id number] CT ankle right wo IV contrast Result [...] Horacio Loera. This study was interpreted at [place], [place]. MACRO: None Signed by: Julián Mendez 10/31/2024 11:31 PM Dictation workstation: [id number] CT head wo IV contrast Result Date: 10/31/2024 CT HEAD: *No acute intracranial abnormality or calvarial fracture. I personally reviewed the images/study and I agree with the findings as stated by resident Horacio Loera. This study was interpreted at [place], [place]. MACRO: None. Signed by: Julián Mendez 10/31/2024 10:31 PM Dictation workstation: [id number] XR ankle right 3+ views Result Date: 10/31/2024 *Comminuted fibula fracture with similar alignment compared to prior imaging. Previously described medial malleolus avulsion fracture is not well visualized, likely obscured by overlying cast material. I personally reviewed the images/study and I agree with the findings as stated by resident Horacio Loera. This study was interpreted at [place], [place]. MACRO: None Signed by: Julián Mendez 10/31/2024 10:25 PM Dictation workstation: [id number] XR chest 1 view Result Date: 10/31/2024 1. No evidence of acute cardiopulmonary process. MACRO: None Signed by: Bryson Fam 10/31/2024 6:41 PM Dictation workstation: [id number] XR ankle right 3+ views Result Date: 10/31/2024 Comminuted distal fibular fracture with additional medial malleolar avulsion injury. Suspected medial clear space widening. No evidence of syndesmotic widening. MACRO: None Signed by: Bryson Fam 10/31/2024 6:41 PM Dictation workstation: [id number] XR tibia fibula right 2 views Result Date: 10/31/2024 Comminuted distal fibular fracture with additional medial malleolar avulsion injury. Suspected medial clear space widening. No evidence of syndesmotic widening. MACRO: None Signed by: Bryson Fam 10/31/2024 6:41 PM Dictation workstation: [id number] XR knee right 4+ views Result Date: 10/31/2024 Comminuted distal fibular fracture with additional medial malleolar avulsion injury. Suspected medial clear space widening. No evidence of syndesmotic widening. MACRO: None Signed by: Bryson Fam 10/31/2024 6:41 PM Dictation workstation: [id number] Cardiology, Vascular, and Other Imaging ECG 12 [...] note dated 11/01 for our detailed recommendations. [facility] Work Phone: 11-01-2024 Consult note Formatting of [...] [facility] and he went to visit afterwards he stopped the [employer] for lunch and had 2 beers which [...] was a few seconds to minutes the administrative services specialist was present and at his side [...] given rapid COORDINATION: In both upper extremities, figkdx-pbfp-iwcska was intact without dysmetria or overshoot. GAIT: [...] Horacio Loera. This study was interpreted at [place], [place]. MACRO: None. Signed by: Julián Mendez 11/01/2024 1:14 AM Dictation workstation: [id number] CT lumbar spine retrospective reconstruction protocol Result Date: 11/01/2024 CT CHEST/ABDOMEN/PELVIS: *No acute traumatic injury. CT THORACIC AND LUMBAR SPINE: *No acute fracture or traumatic malalignment. I personally reviewed the images/study and I agree with the findings as stated by resident Horacio Loera. This study was interpreted at [place], [place]. MACRO: None. Signed by: Julián Mendez 11/01/2024 1:14 AM Dictation workstation: [id number] CT thoracic spine retrospective reconstruction protocol Result Date: 11/01/2024 CT CHEST/ABDOMEN/PELVIS: *No acute traumatic injury. CT THORACIC AND LUMBAR SPINE: *No acute fracture or traumatic malalignment. I personally reviewed the images/study and I agree with the findings as stated by resident Horacio Loera. This study was interpreted at [place], [place]. MACRO: None. Signed by: Julián Mendez 11/01/2024 1:14 AM Dictation workstation: [id number] CT cervical spine wo IV contrast Result Date: 11/01/2024 1. No acute fracture or traumatic malalignment of the cervical spine. I personally reviewed the images/study and resident's interpretation and I agree with the findings as stated by Anisa Mena MD (resident radiologist). This study was analyzed and interpreted at [place], [place]. MACRO: None. Signed by: Julián Mendez 11/01/2024 1:04 AM Dictation workstation: [id number] CT ankle right wo IV contrast Result [...] Horacio Loera. This study was interpreted at [place], [place]. MACRO: None Signed by: Julián Mednez 10/31/2024 11:31 PM Dictation workstation: [id number] CT head wo IV contrast Result Date: 10/31/2024 CT HEAD: *No acute intracranial abnormality or calvarial fracture. I personally reviewed the images/study and I agree with the findings as stated by resident Horacio Loera. This study was interpreted at [place], [place]. MACRO: None. Signed by: Julián Mendez 10/31/2024 10:31 PM Dictation workstation: [id number] XR ankle right 3+ views Result Date: 10/31/2024 *Comminuted fibula fracture with similar alignment compared to prior imaging. Previously described medial malleolus avulsion fracture is not well visualized, likely obscured by overlying cast material. I personally reviewed the images/study and I agree with the findings as stated by resident Horacio Loera. This study was interpreted at [place], [place]. MACRO: None Signed by: Julián Mendez 10/31/2024 10:25 PM Dictation workstation: [id number] XR chest 1 view Result Date: 10/31/2024 1. No evidence of acute cardiopulmonary process. MACRO: None Signed by: Bryson Fam 10/31/2024 6:41 PM Dictation workstation: [id number] XR ankle right 3+ views Result Date: 10/31/2024 Comminuted distal fibular fracture with additional medial malleolar avulsion injury. Suspected medial clear space widening. No evidence of syndesmotic widening. MACRO: None Signed by: Bryson Fam 10/31/2024 6:41 PM Dictation workstation: [id number] XR tibia fibula right 2 views Result Date: 10/31/2024 Comminuted distal fibular fracture with additional medial malleolar avulsion injury. Suspected medial clear space widening. No evidence of syndesmotic widening. MACRO: None Signed by: Bryson Fam 10/31/2024 6:41 PM Dictation workstation: [id number] XR knee right 4+ views Result Date: 10/31/2024 Comminuted distal fibular fracture with additional medial malleolar avulsion injury. Suspected medial clear space widening. No evidence of syndesmotic widening. MACRO: None Signed by: Bryson Fam 10/31/2024 6:41 PM Dictation workstation: [id number] Cardiology, Vascular, and Other Imaging ECG 12 [...] 6:32 PM EDT Associated attestation - Anupam Mclean, DO - 11/01/2024 6:32 PM EDT I [...] our detailed recommendations. documented in this encounter [facility] Work Phone: 10-31-2024 History and physical note [facility] TRAUMA SERVICE - HISTORY AND PHYSICAL / [...] provider name, time): ortho Dispo: Admit to RNF for PT/OT Pt seen and discussed with attending Dr. Castellano Total face to face time spent with patient/family of 30 minutes, with >50% of the time spent discussing plan of care/management, counseling/educating on disease processes, explaining results of diagnostic testing. I have reviewed all medications, laboratory results, and imaging pertinent for today's encounter. Edna Choudhary PA-C Trauma, Critical Care, Acute Care Surgery [facility]: [id number] [facility] [id number] ======== PAST MEDICAL HISTORY: PMH: denies, one prior event 1.5 weeks ago where he had convulsions after smoking marijuana SOCIAL HISTORY: Smoking: cigarettes Alcohol: works in [employer] industry, often has a few drinks after [...] the right; 2+ on the left. Disability [place] Coma Score Eye:4 Verbal:5 Motor:6 15 Pupils Right Pupil: round and reactive Left Pupil: round and reactive Motor Strength Sewer Pipe Layer strength: 5/5 on the right 5/5 on [...] from last 7 days Lab Units 10/31/24 190 WBC AUTO x10*3/uL 13.8* HEMOGLOBIN g/dL 16.3 HEMATOCRIT % 45.9 PLATELETS AUTO x10*3/uL 230 NEUTROS PCT AUTO % 74.6 LYMPHS PCT AUTO % 16.5 MONOS PCT AUTO % 7.0 EOS PCT AUTO % 0.7 Results from last 7 days Lab Units 10/31/24 190 SODIUM mmol/L 135* POTASSIUM mmol/L 4.4 CHLORIDE mmol/L 98 CO2 mmol/L 29 BUN mg/dL 15 CREATININE mg/dL 1.14 CALCIUM mg/dL 10.1 PROTEIN TOTAL g/dL 8.2 BILIRUBIN TOTAL mg/dL 0.6 ALK PHOS U/L 89 ALT U/L 39 AST U/L 24 GLUCOSE mg/dL 101* Results from last 7 days Lab Units 10/31/24 190 BILIRUBIN TOTAL mg/dL 0.6 I have reviewed [...] surgery. Appreciate neurology consult. Ganga Castellano DO [facility] Work Phone: 10-31-2024 History and physical note [facility] TRAUMA SERVICE - HISTORY AND PHYSICAL / [...] provider name, time): ortho Dispo: Admit to [facility] for PT/OT Pt seen and discussed [...] Trauma, Critical Care, Acute Care Surgery Floor: [id number] TSICU: [id number] ======== PAST MEDICAL HISTORY: PMH: denies, one [...] the right; 2+ on the left. Disability [place] Coma Score Eye:4 Verbal:5 Motor:6 15 Pupils Right Pupil: round and reactive Left Pupil: round and reactive Motor Strength Sewer Pipe Layer strength: 5/5 on the right 5/5 on [...] Ganga Castellano DO documented in this encounter [facility] Work Phone: 10-31-2024 Emergency department Note History [...] Castellano. Neurology has been consulted for seizures. [place] Coma Scale Score: 15 Differential diagnoses considered [...] the patient's care: As documented above in [facility] The patient was discussed with the following consultants/services: None Care Considerations: As documented above in [facility] ED Course: ED Course as of 11/06/24 0443 TueOct 31, 20241915 BLOOD GAS VENOUS FULL PANEL(!) VBG notable for hypercapnia with a PCO2 of 54 but normal pH and no other significant abnormalities appreciated. [RS] 1917 X-ray imaging personally interpreted by me showing no evidence of focal infiltrate, pulmonary edema or pleural effusion. Right knee, tib-fib and ankle x-rays reviewed which does show a distal comminuted fibular fracture with a right medial malleoli avulsion fracture. Will consult orthopedic surgery and have them evaluate the patient. [RS] 1924 ECG 12 lead EKG personally interpreted by me showing normal sinus rhythm at a rate of 99 bpm with normal axis. Intervals are within normal limits. There is no ST elevation or depression appreciated. No concerning T wave abnormalities. No DIVINA. No previous EKGs available for comparison. [RS] ED Course User Index [RS] Noah Betancur, Diagnoses as of 11/06/24442 Displaced comminuted fracture [...] right ankle pain documented in this encounter [facility] Work Phone: 10-31-2024 Physician Emergency department Note [...] Castellano. Neurology has been consulted for seizures. [place] Coma Scale Score: 15 Differential diagnoses considered [...] None Care Considerations: As documented above in [facility] ED Course: ED Course as of [...] 11/01/24 0135 Patrick Poole DPM Resident 11/01/24 4332 The patient was seen by the resident/fellow. I have personally performed a substantive portion of the encounter. I have seen and examined the patient; agree with the workup, evaluation, MDM, management and diagnosis. The care plan has been discussed with the resident; I have reviewed the resident s note and agree with the documented findings. Noah Colvin MD 11/06/24 0443 [facility] Work Phone: 10-31-2024 Emergency department Triage note [...] pt is also c/o right ankle pain [facility] Work Phone: 02-24-2024 Hospital Discharg e instructions [...] until the rash is all gone. Use nesu-ass-aradxmy antifungal powders or sprays on your feet [...] Pus draining from cracks in the skin [id number] [employer]. [address] [place] [address]. All rights reserved. This information is not [...] Boil returns when you are at home [phone] [employer]. [address] [place] [address]. All rights reserved. This information is not intended as a substitute for professional medical care. Always follow your healthcare professional's instructions. Follow Up Care 02/23/2024 21:43:59 With:Call KRISTA Rodriguez Pt. Refferral [phone] Address:Unknown When:2-[address] [facility] 02-23-2024 Note Discharge Instructions Thank you for allowing [facility] to assist you with your healthcare needs. The following is important discharge information regarding your hospital visit. What to Do Next Instructions from Your Care Team No qualifying data available. Post Acute Orders No qualifying data available. You Need to Schedule the Following Appointments Follow Up with Call AMB New Pt. Refferral [phone] When:Within 2-4 days Allergies Cats Dust Medications [...] may report side effects to FDA at 4-654-SZS-6423. What other drugs will affect butenafine topical? Medicine used on the skin is not likely to be affected by other drugs you use, but many drugs can interact. Tell your doctor about all your current medicines, including prescription and vbpq-uui-qjbmjcd medicines, vitamins, and herbal products. Where can I get more information? Your doctor or pharmacist can provide more information about butenafine topical. Remember, keep this and all other medicines out of the reach of children, never share your medicines with others, and use this medication only for the indication prescribed. Every effort has been made to ensure that the information provided by [employer]. ('[employer]') is accurate, up-to-date, and complete, but no guarantee is made to that effect. Drug information contained herein may be time sensitive. [employer] information has been compiled for use by healthcare practitioners and consumers in the [place] and therefore [employer] does not warrant that uses outside of the [place] are appropriate, unless specifically indicated otherwise. [employer] drug information does not endorse drugs, diagnose patients or recommend therapy. [employer] drug information is an informational resource designed [...] effective or appropriate for any given patient. [employer] does not assume any responsibility for any aspect of healthcare administered with the aid of information [employer] provides. The information contained herein is not intended to cover all possible uses, directions, precautions, warnings, drug interactions, allergic reactions, or adverse effects. If you have questions about the drugs you are taking, check with your doctor, nurse or pharmacist. Copyright 2315-0895 [employer]. Version: 5.01. Revision Date: 08/04/2023. cephalexin (sef [...] may report side effects to FDA at 0-953-FAU-1931. What other drugs will affect cephalexin? Tell your doctor about all your other medicines, especially: metformin; or probenecid. This list is not complete. Other drugs may affect cephalexin, including prescription and dokr-hon-crnzymq medicines, vitamins, and herbal products. Not all [...] to ensure that the information provided by [employer]') is accurate, up-to-date, and complete, but no guarantee is made to that effect. Drug information contained herein may be time sensitive. [employer] information has been compiled for use by healthcare practitioners and consumers in the [place] and therefore [employer] does not warrant that uses outside of the [place] are appropriate, unless specifically indicated otherwise. [employer] drug information does not endorse drugs, diagnose patients or recommend therapy. [employer] drug information is an informational resource designed [...] effective or appropriate for any given patient. [facility] does not assume any responsibility for any aspect of healthcare administered with the aid of information [employer] provides. The information contained herein is not intended to cover all possible uses, directions, precautions, warnings, drug interactions, allergic reactions, or adverse effects. If you have questions about the drugs you are taking, check with your doctor, nurse or pharmacist. Copyright 8485-6863 [facility] [employer] Version: 04.29. Revision Date: 12/29/2022. doxycycline (oral/injection) (DOX i BASILIA romo) Acticlate, Adoxa, Alodox, Avidoxy, Doryx, Doryx MPC, Lymepak, Mondoxyne NL, Monodox, Morgidox, Morgidox 0p214du, Morgidox 0b507nn, Okebo, Oracea, Targadox, Vibramycin, Vibramycin Monohydrate What [...] or life-threatening conditions such as anthrax or [place] spotted fever. The benefit of treating a [...] may report side effects to FDA at 2-182-ZLZ-9534. What other drugs will affect doxycycline? Sometimes it is not safe to use certain medications at the same time. Some drugs can affect your blood levels of other drugs you take, which may increase side effects or make the medications less effective. Other drugs may affect doxycycline, including prescription and uxvg-xcr-xgjbooc medicines, vitamins, and herbal products. Tell your [...] to ensure that the information provided by [employer] ('[employer]') is accurate, up-to-date, and complete, but no guarantee is made to that effect. Drug information contained herein may be time sensitive. [employer] information has been compiled for use by healthcare practitioners and consumers in the [place] and therefore [employer] does not warrant that uses outside of the [place] are appropriate, unless specifically indicated otherwise. [employer] drug information does not endorse drugs, diagnose patients or recommend therapy. [employer] drug information is an informational resource designed [...] effective or appropriate for any given patient. [employer] does not assume any responsibility for any aspect of healthcare administered with the aid of information [employer] provides. The information contained herein is not intended to cover all possible uses, directions, precautions, warnings, drug interactions, allergic reactions, or adverse effects. If you have questions about the drugs you are taking, check with your doctor, nurse or pharmacist. Copyright 0479-3831 [facility] [employer] Version: .. Revision Date: 02/02/2023. Education Materials Athlete s [...] until the rash is all gone. Use dcce-wlx-uvxioll antifungal powders or sprays on your feet [...] Pus draining from cracks in the skin 7937-8592 [employer]. [address] [place] [address]. All rights reserved. This information is not [...] Boil returns when you are at home 2497-2138 [employer]. [address] [place] [address]. All rights reserved. This information is not intended as a substitute for professional medical care. Always follow your healthcare professional's instructions. Additional Information VACCINATE! IT SAVES LIVES! Members of the community who have not yet received the COVID-19 vaccine and would like to receive it can visit one of [facility] vaccine clinics. There are many vaccine clinic locations within the [facility]. For locations and available times, please visit www.gettheshot.coronavirus.[place] .gov/. It is important to note that some COVID mobile vaccine clinics are held outdoors and may be canceled in rainy or stormy conditions. To learn more about pediatric vaccinations (ages 5-11), we invite you to visit the [facility] webpage. https://www.[facility].org/ pages/3738-Qgdmn-Hzivthxisll-Fr wqfwdurf-Revrq-Wqgjripqf.html To learn more about the COVID-19 vaccine, we invite you to visit the CDC website for a list of frequently asked questions. https://www.cdc.gov/coronavirus /2019-ncov/vaccines/faq.html [facility] Access Instructions: Stay connected with your healthcare team and access your personal medical information anytime with the [employer] [facility] Patient Portal. If you would like a full copy of your medical records please contact the [facility] Medical Records Department Tuesday through Tuesday between 8a.m. and 4:30p.m. Please follow the directions below to access the portal: 1.Access the email account you provided upon registration to the the [facility].2.Look for an invitation email from [facility].3.Open the email and access the invitation link: Accept Invitation to [facility]4.Fill in the required collier to create your account. Sign into [email or web address] with your username and password that you [...] you will allow to register on the [facility] Patient Portal for access to your information. You can also access the [facility] Patient Portal on the [employer] paz. Simply click on Health Records under [...] Call your local pharmacy or go to http://[email or web address].[employer]/4O5Rw1f to find one close to you.3.Make use of household items: Use cat litter or old coffee grounds to dispose medications if other options are not available. Mix your drugs with these household products, seal them in an airtight container and throw it into the garbage. Call [facility]: [phone] to be sure your drugs can be [...] aware that I should contact my doctor. 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 Evaluation + Plan note No data available for this section [facility] Evaluation note Diagnosis Displaced comminuted fracture of [...] Obesity Obesity, unspecified documented in this encounter [facility] Work Phone: Summary Purpose Family History No [...] section and content) DATE CREATED AUTHOR 09/03/2023 [facility] DATE CREATED AUTHOR AUTHOR'S ORGANIZ ATION 02/29/2024 [facility] DATE CREATED AUTHOR AUTHOR'S ORGANIZ ATION 11/13/2024 [facility] DATE CREATED AUTHOR AUTHOR'S ORGANIZ ATION 11/17/2024 [facility] Reason for Visit (unrecogniz ed section and content) Reason Comments Syncope Ankle Pain Specialty Diagnoses / Procedures Referred By Toby t Referred To Contact Diagnoses Displaced comminuted fracture of shaft of right fibula, [place] [address] [place] [address] Phone: tel: fax: [facility] [address] [place] [address] Phone: tel: fax: Referral ID Status Reason Start Date Expiration Date Visits Re quested Visits Authorized [id number] 1 1 Scheduled Active and Recently Administ [...] Do Varela RN)1809 (Given - Provider: Uziel bIarra RN) 0557 (Given - Provider: Nika Morrell [...] Uziel Ibarra RN)2328 (Given - Provider: Meghann Johnson, RN) 0524 (Given - Provider: Meghann Johnson RN)1204 (Given - Provider: Enoch Jean-Baptiste, RIKY)1800 (Due) multivitamin with minerals 1 tablet 1 tablet, oral, Daily, First dose on Zuly 11/01/24 at 0900 0938 (Given - Provider: Uziel Ibarra RN) 0823 (Given - Provider: Eonch Jean-Baptiste, RIKY) 0830 (Given - Provider: nEoch Jean-Baptiste, RIKY) nicotine (Nicoderm CQ) 14 mg/24 hr patch 1 patch 1 patch, transdermal, Administer over 24 Hours, Daily, First dose on [facility] 11/03/24 at 1245 0830 (Medication Removed - [...] Uziel Ibarra RN)2119 (Given - Provider: Meghann Johnson, RIKY) polyethylene glycol (Glycolax, Miralax) packet 17 g [...] at 1835 2112 (Given - Provider: Uziel Ibarra RN) melatonin [...] Ibarra RN) 1012 (Given - Provider: Enoch Jean-Baptiste RN)1838 (Given - Provider: Uziel Ibarra RN)2328 (Given - Provider: Meghann Johnson RN) 0915 (Given - Provider: Enoch Jean-Baptiste RN) [...] Care Teams (unrecognized sec tion and content) Correctional Therapy Director Relationship Specialty Start Date End Date Generic Provider, No Assigned P[place], [place] [address] PCP - General Cuff Setter Overlock 10/31/24 Sara Garcia, [facility] Dial Lathe OperatorBuffer Machine 11/06/24 FOR RECORDS PERTAINING TO PATIENTS WHO [...] BE BASED ON THE PRIMARY CLINICAL RECORDS. [employer] [email or web address] [phone] no warranty or guarantee [id number] the accuracy [phone] completeness of information in this [id number]
[2024-11-19 08:44] LABS: Absolute Lymphocyte Count 2.11 X10^3/uL (0.83-4.51); Absolute Neutrophil Count 3.5 X10^3/uL (2.0-7.7); Basophil# 0.05 X10^3/uL; Basophil% 0.8 % (0-1); Eosinophil# 0.16 X10^3/uL; Eosinophils% 2.5 % (0-5); Hematocrit 41.6 % (40-54); Hemoglobin 13.8 g/dL (13.0-16.5); Lymphocyte # 2.11 X10^3/ul (0.83-4.51); Lymphocyte % 32.8 % (19-41); Mean Corp Hgb Conc 33.2 g/dL (32-36); Mean Corpuscular Hgb 30.1 pg (27.0-32.0); Mean Corpuscular Volume 90.8 fL (80-94); Mean Platelet Vol. 11.4 fl (6.2-12.0); Monocyte# 0.55 X10^3/uL; Monocyte% 8.6 % (0-10); NRBC Flagged by Analyzer 0 % (0-5); Neutrophil # 3.49 X10^3/uL (2.7-7.7); Neutrophil % 54.2 % (47-70); Platelet Count 251 K/mm3 (150-450); RBC Distribution Width CV 12.4 % (11.6-14.6); RBC Distribution Width SD 40.9 fl (35.1-43.9); Red Blood Count 4.58 M/mm3 (4.6-6.2); White Blood Count 6.4 K/mm3 (4.4-11.0)
[2024-11-19 09:01] LABS: ALB/GLOB Ratio 1.3 RATIO (0.9-2.4); AST(SGOT) 25 U/L (<=37); Alanine Aminotransfer ALT/SGPT 35 U/L (<=46); Albumin, Serum 4.2 g/dL (3.5-5.0); Alkaline Phosphatase 74 U/L (40-129); Anion Gap 13 (5-15); BUN 21 mg/dL (4-19); Calcium,Total 10.1 mg/dL (7.6-11.0); Carbon Dioxide 24.7 mmol/L (21.0-32.0); Chloride 103 mmol/L (98-108); Creatinine, Serum 0.76 mg/dL (0.70-1.20); EST Glomerular Filtration Rate 123 (>60); Globulin 3.3 g/dL (2.2-4.2); Glucose 98 mg/dL (70-99); Magnesium 2.1 mg/dL (1.5-2.2); Potassium 4.2 mmol/L (3.3-5.1); Protein, Total 7.5 g/dL (5.9-8.4); Sodium Level 140 mmol/L (133-145)
== END | disposition home or self-care (01) ==
LOC: OLS.SW 05:00
PROVIDERS: Visit Provider Internal Medicine
DX: S82.61XD Displaced fracture of lateral malleolus of right fibula, subsequent encounter for closed fracture with routine healing (principal); R26.81 Unsteadiness on feet; Z91.81 History of falling
CPT/HCPCS: 36415; 80053; 83735; 85025

== ENCOUNTER → 2024-11-27 | Outpatient (REF) | payer MEDICAID, SELFPAY ==
[2024-11-27 11:31] LABS: Hematocrit 43.0 % (40-54); Hemoglobin 14.3 g/dL (13.0-16.5); Immature Granulocytes Count 0.040 X10^3/uL (0.0-0.0); Mean Corp Hgb Conc 33.3 g/dL (32-36); Mean Corpuscular Volume 90.0 fL (80-94); Mean Platelet Vol. 11.4 fl (6.2-12.0); NRBC Flagged by Analyzer 0 % (0-5); Platelet Count 188 K/mm3 (150-450); RBC Distribution Width CV 12.5 % (11.6-14.6); RBC Distribution Width SD 41.0 fl (35.1-43.9); Red Blood Count 4.78 M/mm3 (4.6-6.2); White Blood Count 6.3 K/mm3 (4.4-11.0)
[2024-11-27 12:01] LABS: AST(SGOT) 34 U/L (<=37); Alanine Aminotransfer ALT/SGPT 49 U/L (<=46); Albumin, Serum 4.2 g/dL (3.5-5.0); Alkaline Phosphatase 78 U/L (40-129); Anion Gap 12 (5-15); BUN 16 mg/dL (4-19); BUN/Creat Ratio 18.9 RATIO (10-20); Calcium,Total 9.9 mg/dL (7.6-11.0); Carbon Dioxide 26.0 mmol/L (21.0-32.0); Chloride 103 mmol/L (98-108); Globulin 2.9 g/dL (2.2-4.2); Glucose 91 mg/dL (70-99); Magnesium 2.1 mg/dL (1.5-2.2); Potassium 4.1 mmol/L (3.3-5.1)
== END | disposition home or self-care (01) ==
LOC: OLS.SW 04:00
PROVIDERS: Referring Provider Internal Medicine; Visit Provider Internal Medicine
DX: S82.61XD Displaced fracture of lateral malleolus of right fibula, subsequent encounter for closed fracture with routine healing (principal); X58.XXXD Exposure to other specified factors, subsequent encounter; F10.10 Alcohol abuse, uncomplicated
CPT/HCPCS: 36415; 80053; 83735; 85025

== ENCOUNTER → 2025-03-18 | Outpatient (CLI) | payer MEDICAID, SELFPAY ==
--- OUTSIDE RECORDS SUMMARY | 2025-03-18 19:49 | XMS RPT_ITS | CCD ---
Author Organization [facility] Care Team Providers Care Loan Inspector Name Role Phone PHYSICIAN, NONE Primary Care Physician Unavailab le PHYSICIAN, NONE Primary Care Unavailable FADIA HUSTON, RAQUEL Lanier Attending Unavailable Generic Provider , No Assigned Pcp Primary Car e Provider Unavailable [facility] Allen Unavailable Unavailable Generic Provider , No Assigned Pcp Primary Car e Provider Unavailable BLU CASTILLO Attending Unavailable ANNA LEUNG Referring Unavailable GENERIC PROVIDER, NO ASSIGNED PCP Primary Care Unavailable POLLAB BLU Referring Unavailable GENERIC PROVIDER, NO ASSIGNED PCP Primary Care Unavailable Care Physician, No Primary Primary Care Provider Unavailable Gurvinder HUSTON, Dr. Haque Attending Provider UnavailDr. Shabnam Arndt MD Referring Provider UnavailCALLUM Santoyo Attending Unavailable SHABNAM PAEZ Referring Unavailable Shabnam Bhatia Attending Unavailable Care Physician, No Primary Primary Care Unava ilable Shabnam Bhatia Attending Unavailable Shabnam Bhatia Referring Unavailable Care Physician, No Primary Primary Care Unava ilable Shabnam Bhatia Attending Unavailable Care Physician, No Primary Primary Care Unava ilable Shabnam Bhatia Attending Unavailable Care Physician, No Primary Primary Care Unava ilable Care Physician, No Primary Primary Care Unava ilable German Zhang Attending Unavailable Care Physician, No Primary Referring Unava ilable Care Physician, No Primary Primary Care Unava ilable Herminio HIP HOP DANCER, Savita Attending Unavailable Care Physician, No Primary Primary Care Unava ilable Amanda Ch Attending Unavailable Amnada Ch Referring Unavailable Shabnam Bhatia Attending Unavailable Care Physician, No Primary Primary Care Unava ilable Shabnam Bhatia Referring Unavailable GABRIELE COHEN Consulting Unavailable GANGA CASTELLANO Admitting Unavailable GANGA CASTELLANO Attending Unavailable GENERIC PROVIDER, NO ASSIGNED PCP Primary Care Unavailable NOAH COLVIN Referring Unavailable BLU CASTILLO Attending Unavailable BLU CASTILLO Referring Unavailable Allergies Allergy Classification Reported Allergen(s) Allergy Type Date of Onset Reaction(s) Facility (2 sources) Cat; Translations: [CATS] Propensity to adverse reactions (disorder) 9 Dust [facility] (1 source) Dust; Translations: [DUST] Propensity to adverse reactions (disorder) 9 [facility] Medications Current Medications Medication Drug Class(es) Dates Sig (Normalized) Sig (Original) acetaminophen 325 mg oral tablet (6 sources) Start: 11-06-2024 take 3 tablets by [...] Every 6 hours scheduled, First dose on [facility] 11/01/24 at 1900, If ordered PRN for pain, nurse is permitted to administer this medication for higher pain scores based on patient preference? Yes [id number] 200 actuat albuterol 0.09 mg/actuat metered dose inhaler (5 sources) beta2-Adrenergic Agonist Start: 09-02-2023 take 2 puff(s) by inhalation every four hours albuterol 90 mcg/actuation inhaler Inhale 2 puffs every 4 hours if needed. 09/02/2023 Active Start: 05-02-2019 End: 06-19-2019 Albuterol Sulfate 1 INHALER inhaler Discontinued 2 NMA INHALATION EVERY 4 HOURS NEEDED as needed for Wheezing 1 May 02, 2019 1:00am June 19, 2019 4:19pm atenolol 25 mg oral tablet (4 sources) beta-Adrenergic Joshua Start: 11-17-2024 atenolol (Tenormin) 25 mg tablet 11/17/2024 Active azithromycin 250 mg oral tablet (2 sources) Macrolide Antimicrobial Start: 06-19-2019 End: 03-27-2024 take 1 tablet by mouth once daily Azithromycin 250 mg tablet Active 250 mg PO DAILY 4 4 0 March 27, 2024 1:19pm 250 mg orally; calcium carbonate 1500 mg / cholecalciferol 0.01 mg oral tablet (6 sources) Vitamin D Start: 11-02-2024 End: 11-06-2024 take 1 tablet by mouth twice daily calcium carbonate-vitami n D3 600 mg-10 mcg (400 unit) tablet [...] hyclate 100 mg oral capsule (1 source) Tetracycline-class Drug Start: 02-23-2024 End: 03-04-2024 doxycycline hyclate 100 mg oral capsule Dose : 100 mg = 1 cap(s), Oral, BID, X 10 day(s), # 20 cap(s), 0 Refill(s), 03/04/24 11:12:00 PM EDT, 104.5 Start Date: 02/23/24 Stop Date: 03/04/24 Status: Ordered 0.3 ml enoxaparin sodium 100 mg/ml prefilled syringe (6 sources) Low Molecular Weight Heparin Start: 11-06-2024 [...] 1900 folic acid 1 mg oral tablet (6 sources) Start: 11-01-2024 take 1 tablet by mouth once daily folic acid (Folvite) 1 mg tablet Indications: Alcohol use Take 1 tablet (1 mg) by mouth once daily. 11/07/2024 Active Lotrimin Ultra Athlete's Foot 1% topical cream (1 source) Start: 02-23-2024 End: 03-01-2024 Lotrimin Ultra Athlete's Foot 1% topical cream Apply 1 paz, Topical, BID, # 12 gram(s), 0 Refill(s), Cream, 104.5 Start Date: 02/23/24 Stop Date: 03/01/24 Status: Ordered melatonin 3 mg oral tablet (6 sources) Start: 11-01-2024 melatonin 3 mg tablet Indications: Insomnia, unspecified type Take 1 tablet (3 mg) by mouth as needed at bedtime for sleep. 11/06/2024 Active meloxicam 15 mg oral tablet (2 sources) Nonsteroidal Anti-inflammatory Drug Start: 03-12-2025 End: 05-11-2025 take 1 tablet by mouth once daily meloxicam (Mobic) 15 mg tablet Indications: Displaced comminuted fracture of shaft of right fibula, initial encounter for closed fracture , Closed avulsion fracture of medial malleolus of right tibia with routine healing, subsequent encounter Take 1 tablet (15 mg) by mouth once daily. 30 tablet 1 03/12/2025 05/11/2025 Active methocarbamol 500 mg oral tablet (7 sources) Muscle Relaxant Start: 11-05-2024 take 1 [...] Tue11/01/24 at 0900 multivitamin with minerals tablet (5 sources) Start: 11-07-2024 take 1 tablet by mouth once daily multivitamin with minerals tablet Indications: Alcohol use Take 1 tablet by mouth once daily. 11/07/2024 Active 24 hr nicotine 0.583 mg/hr transdermal system (6 sources) Cholinergic Nicotinic Agonist Start: 11-07-2024 apply 1 dose transdermal route every twenty-four hours nicotine (Nicoderm CQ) 14 mg/24 hr patch Indications: Cigarette smoker Place 1 patch over 24 hours on the skin once daily. 11/07/2024 Active Start: 11-03-2024 apply 1 dose transde rmal route once daily 1 patch, transdermal, Administer over 24 Hours, Daily, First dose on 11/03/24 at 1245 oxyCODONE hydrochloride 5 mg [...] Start: 11-01-2024 PHENobarbital 64.8 mg oral tablet (7 sources) Start: 11-06-2024 take 1 tablet by [...] HR >110bpm, diaphoresis, tremors, hallucinations), Starting on [facility] 11/01/24 at 0412 Start: 11-01-2024 End: 11-01-2024 165.75 mg (rounded from 164. 16 mg = 2.4 mg/kg 68.4 kg [place] weight), intramuscular, Once, On [facility] 11/01/24 at 0415, For 1 dose polyethylene glycol 3350 23676 mg powder for oral solution (6 sources) Osmotic Laxative Start: 11-01-2024 polyethylene glycol (Glycolax, Miralax) 17 gram packet Indications: Drug-induced constipation Take 17 g by mouth once daily. 11/07/2024 Active thiamine 100 mg oral tablet (7 sources) Start: 11-07-2024 take 1 tablet by mouth once daily thiamine (Vitamin B-1) 100 mg tablet Indications: Alcohol use Take 1 tablet (100 mg) by mouth once daily. 11/07/2024 Active Start: 11-04-2024 100 mg, oral, Daily, First dose on [place] 11/04/24 at 0900, To start after three days of IV Start: 11-01-2024 End: 11-04-2024 100 mg, intravenous, Daily, First dose on [facility] 11/01/24 at 0900, For 3 doses, For IV push use, administer over 1-2 minutes. Completed/Discontinued Medications Medication Drug Class(es) Dates Sig (Normalized) Sig (Original) albuterol 0.833 mg/ml / ipratropium bromide 0.167 mg/ml inhalation solution (1 source) Anticholinergic, beta2-Adrenergic Agonist Start: 06-19-2019 End: 06-24-2019 take 1 mL by inhalation every six hours Ipratropium-Albuter ol 0.5 mg-3 mg(2.5 mg base)/3 mL solution for nebulization Discontinued 3 mL INHALATION EVERY 6 HOURS 90 5 0 June 19, 2019 1:00am June 23, 2019 1:00am June 24, 2019 1:08am Acute bronchitis, unspecified calcium chloride 0.0014 meq/ml / potassium chloride 0.004 meq/ml / sodium chloride 0.103 meq/ml / sodium lactate 0.028 meq/ml injectable solution (2 sources) Start: 11-01-2024 End: 11-01-2024 take 100 mL intravenously every hour 100 mL/hr, intravenous, Continuous, Starting on [place] 11/01/24 at 1430, For 1 day, Recovery (only) Start: 11-01-2024 End: 11-01-2024 1,000 mL, intravenous, at 99 9 mL/hr, Administer over 1 Hours, Once, On [facility] 11/01/24 at 1055, For 1 dose ceFAZolin 2000 mg injection (1 source) Cephalosporin Antibacterial Start: 11-01-2024 End: 11-02-2024 take 2 g intravenously every eight hours 2 g, intravenous, Administer over 30 Minutes, Every 8 hours, First dose on [facility] 11/01/24 at 2100, For 2 doses, premix [...] line, Starting on [facility] 11/01/24 at 0753 Inhalational Spacing Device 1 EACH spacer (1 source) Start: 05-02-2019 End: 06-19-2019 Inhalational Spacing Device 1 EACH spacer Discontinued 1 [facility] DIRECTED 1 0 May 02, 2019 1:00am June 19, 2019 4:19pm Use with inhaler iohexol (OMNIPaque) 350 mg iodine/mL solution 100 mL (1 source) Start: 11-01-2024 End: 11-01-2024 100 mL, intravenous, Once in imaging, Starting on [facility] 11/01/24 at 0017, For 1 dose 1 ml morphine sulfate 4 mg/ml injection (1 source) Opioid Agonist Start: 10-31-2024 End: 10-31-2024 2 mg, intravenous, Once, On Tue10/31/24 at 1945, For 1 dose predniSONE 20 mg oral tablet (1 source) Start: 05-02-2019 End: 06-19-2019 take 2 tablets by mouth once daily at mealtime Prednisone 20 MG tablet Discontinued 40 mg PO DAILY May 02, 2019 1:00am June 19, 2019 4:19pm With food Problems Active Problems Problem Classification Problem Date Documented Da te Episodic/Chronic Acute bronchitis (2 sources) Acute bronchitis; Translations: [Acute bronchitis, unspecified] 06-19-2019 Episodic Alcohol-related disorders (2 sources) Current drinker; Translations: [Alcohol use] Onset: 12-17-2024 11-06-2024 Chronic Asthma (1 source) Asthma; Translations: [Unspecified asthma, uncomplicated] 05-03-2019 Chronic Fracture of lower limb (20 sources) Closed fracture of shaft of fibula; Translations: [Displaced comminuted fracture of shaft of right fibula, initial encounter for closed fracture] Onset: 10-31-2024 11-06-2024 Episodic Other gastrointestinal disorders (1 source) Drug-induced constipation; Translations: [Drug induced constipation] 11-06-2024 Episodic Other injuries and conditions due to external causes (2 sources) History of falling; Translations: [History of falling] Onset: 12-07-2024 Episodic Other lower respiratory disease (1 source) H/O: bronchitis; Translations: [Personal history of other diseases of the respiratory system] 05-02-2019 Episodic Other nervous system disorders (1 source) Unsteadiness on feet; Translations: [Unsteadiness on feet] Onset: 12-28-2024 Episodic Other nutritional; endocrine; and metabolic disorders (6 sources) Obesity; Translations: [Obesity, unspecified] Onset: 11-01-2024 11-01-2024 Chronic Pneumonia (except that caused by tuberculosis or sexually transmitted disease) (1 source) Pneumonia; Translations: [Pneumonia, unspecified organism] 04-04-2024 Episodic Residual codes; unclassified (1 source) Insomnia; Translations: [Insomnia, unspecified] 11-06-2024 Episodic Residual codes; unclassified (1 source) Tobacco use and exposure - finding; Translations: [Tobacco use] 04-04-2024 Episodic Residual codes; unclassified (1 source) Sleep disorder, unspecified; Translations: [Sleep disorder, unspecified] Onset: 03-15-2025 Episodic Substance-related disorders (3 sources) Cigarette smoker ; Translations: [Nicotine dependence, cigarettes, uncomplicated] Onset: 10-31-2024 11-06-2024 Chronic Unclassified (1 source) Cough, unspecified; Translations: [Cough, unspecified] Onset: 04-16-2024 Unclassified (1 source) Alcohol use, unspecified, uncomplicated; Translations: [Alcohol use, unspecified, uncomplicated] Onset: 10-31-2024 Past or Other Problems Problem Classification Problem Date Documented Da te Episodic/Chronic Administrative/social admission (1 source) Encounter for examination for admission to residential institution; Translations: [Encounter for examination for admission to residential institution] Onset: 11-29-2024 Episodic Epilepsy; convulsions (1 source) Unspecified convulsions; Translations: [Unspecified convulsions] Onset: 12-07-2024 Episodic Other gastrointestinal disorders (2 sources) Drug induced constipation; Translations: [Drug induced constipation] Onset: 10-31-2024 Episodic Residual codes; unclassified (2 sources) Insomnia, unspecified; Translations: [Insomnia, unspecified] Onset: 10-31-2024 Episodic Unclassified (1 source) Alcohol use, unspecified, uncomplicated; Translations: [Alcohol use, unspecified, uncomplicated] Onset: 10-31-2024 Results Test Name Value Interpretation Reference Range Facility XR ANKLE RIGHT 3+ VIEWSon XR ANKLE RIGHT 3+ VIEWS Interpreted By: Red Anderson, STUDY: XR ANKLE RIGHT 3+ VIEWS; ; 03/12/2025 2:36 pm INDICATION: Signs/Symptoms:s/p fracture or initial injury. ,S82.451D Displaced comminuted fracture of shaft of right fibula, subsequent encounter for closed fracture with routine healing,S82.51XD Displaced fracture of medial malleolus of right tibia, subsequent encounter for closed fracture with routine healing COMPARISON: 12/03/2024 ACCESSION NUMBER(S): [id number] ORDERING CLINICIAN: BLU CASTILLO FINDINGS: Redemonstration of lateral plate and screw fixation fixating the distal fibula as well as syndesmotic repair. The hardware is intact. There is moderate soft tissue edema about the ankle. The joints are maintained. IMPRESSION: Postsurgical changes in the right ankle without acute abnormality MACRO: None Signed by: Red Anderson 03/12/2025 2:49 PM Dictation workstation: [id number] [facility] Comment on above: Order Comment: Not t o be done sooner than next OV and to be completed in Ortho Rad, per provider preference. XR Ankle - right 3 Viewson 1 Postsurgical changes in the right ankle without acute abnormality MACRO: None Signed by: Red Anderson 03/12/2025 2:49 PM Dictation workstation: [id number] [facility] Interpreted By: Red Anderson, STUDY: XR ANKLE RIGHT 3+ VIEWS; ; 03/12/2025 2:36 pm INDICATION: Signs/Symptoms:s/p fracture or initial injury. ,S82.451D Displaced comminuted fracture of shaft of right fibula, subsequent encounter for closed fracture with routine healing,S82.51XD Displaced fracture of medial malleolus of right tibia, subsequent encounter for closed fracture with routine healing COMPARISON: 12/03/2024 ACCESSION NUMBER(S): [id number] ORDERING CLINICIAN: BLU CASTILLO FINDINGS: Redemonstration of lateral plate and screw fixation fixating the distal fibula as well as syndesmotic repair. The hardware is intact. There is moderate soft tissue edema about the ankle. The joints are maintained. MMODAL Red Anderson MD - 03/12/2025 Interpreted By: Red Anderson, STUDY: XR ANKLE RIGHT 3+ VIEWS; ; 03/12/2025 2:36 pm INDICATION: Signs/Symptoms:s/p fracture or initial injury. ,S82.451D Displaced comminuted fracture of shaft of right fibula, subsequent encounter for closed fracture with routine healing,S82.51XD Displaced fracture of medial malleolus of right tibia, subsequent encounter for closed fracture with routine healing COMPARISON: 12/03/2024 ACCESSION NUMBER(S): [id number] ORDERING CLINICIAN: BLU CASTILLO FINDINGS: Redemonstration of lateral plate and screw fixation fixating the distal fibula as well as syndesmotic repair. The hardware is intact. There is moderate soft tissue edema about the ankle. The joints are maintained. IMPRESSION: Postsurgical changes in the right ankle without acute abnormality MACRO: None Signed by: Red Anderson 03/12/2025 2:49 PM Dictation workstation: [id number] [facility] Work Phone: Radiology Study observation (narrative) [facility] Work Phone: XR Ankle - right 3 ViewsOrde red By: Red Anderson on 03-12-2025 [facility] Work Phone: XR Ankle - right 3 Viewson 0 12-04-2024 Satisfactory appearance right ankle ORIF. Signed by: Timothy Navarro 12/04/2024 9:59 AM Dictation workstation: [id number] [facility] Interpreted By: Timothy Navarro, STUDY: XR ANKLE RIGHT 3+ VIEWS INDICATION: Signs/Symptoms:s/p fracture or initial injury. COMPARISON: October 31 ACCESSION NUMBER(S): [id number] ORDERING CLINICIAN: BLU CASTILLO FINDINGS: Interval ORIF right ankle with fibular plate and tight rope syndesmotic endo buttons. Alignment normal. Hardware satisfactory. [facility] MMODAL Timothy Navarro MD - 12/04/2024 Interpreted By: Timothy Navaror, STUDY: XR ANKLE RIGHT 3+ VIEWS INDICATION: Signs/Symptoms:s/p fracture or initial injury. COMPARISON: October 31 ACCESSION NUMBER(S): [id number] ORDERING CLINICIAN: BLU CASTILLO FINDINGS: Interval ORIF right ankle with fibular plate and tight rope syndesmotic endo buttons. Alignment normal. Hardware satisfactory. IMPRESSION: Satisfactory appearance right ankle ORIF. Signed by: Timothy Navarro 12/04/2024 9:59 AM Dictation workstation: [id number] [facility] Work Phone: XR Ankle - right 3 ViewsOrde red By: Timothy Navarro on 12-04-2024 [facility] Work Phone: XR ANKLE RIGHT 3+ VIEWSon XR ANKLE RIGHT 3+ VIEWS Interpreted By: Timothy Navarro, STUDY: XR ANKLE RIGHT 3+ VIEWS INDICATION: Signs/Symptoms:s/p fracture or initial injury. COMPARISON: October 31 ACCESSION NUMBER(S): [id number] ORDERING CLINICIAN: BLU CASTILLO FINDINGS: Interval ORIF right ankle with fibular plate and tight rope syndesmotic endo buttons. Alignment normal. Hardware satisfactory. IMPRESSION: Satisfactory appearance right ankle ORIF. Signed by: Timothy Navarro 12/04/2024 9:59 AM Dictation workstation: [facility] Comment on above: Order Comment: Not t o be done sooner than next OV and to be completed in Ortho Rad, per provider preference. XR Ankle - right 3 Viewson 0 12-03-2024 Radiology Study observation (narrative) [facility] Work Phone: Absolute lymphocyte countOrd ered By: Shabnam Paez on 11-27-2024 Lymphocytes Auto (Unsp spec) [#/Vol] 2.19 10*3/uL 0.83-4.51 [facility] Absolute neutrophil countOrd ered By: Shabnam Paez on 11-27-2024 Neutrophils (Bld) [#/Vol] 3.2 10*3/uL 2.0-7.7 [facility] Anion gap in Serum or Plasma Ordered By: Shabnam Paez on 11-27-2024 Anion gap [Moles/Vol] 12 mmol/L 5-15 [facility] Automated lymphocyte count a s percentage of total leukocytesOrdered By: Shabnam Paez on 11-27-2024 Lymphocytes/100 WBC Auto (Unsp spec) 34.7 % -41 [facility] BUN/creatinine ratioOrdered By: Shabnam Paez on 11-27-2024 Urea nitrogen/Creatinine [Mass ratio] 18.9 mg/mg 10-20 [facility] Basophil percentageOrdered B y: Shabnam Paez on 11-27-2024 Basophils/100 WBC (Bld) 0.6 % 0-1 [facility] Bilirubin, totalOrdered By: Shabnam Paez on 11-27-2024 Bilirubin [Mass/Vol] 0.39 mg/dL 0.00-1.30 [facility] CBC W/Diff, Automatedon Absolute Lymph 2.19 X10 3/uL Normal 0.83-4.51 [facility] Comment on above: Order Comment: 106.1 Performed By: #### L 501.5200, L100.0100, L500.4050 #### [facility] [address] [place], [address] Absolute Neut 3.2 X10 3/uL Normal 2.0-7.7 [facility] Comment on above: Order Comment: 106.1 Performed By: #### L 501.5200, L100.0100, L500.4050 #### [facility] [address] [place], [address] Basophils/100 WBC (Bld) 0.6 % Normal 0-1 [facility] Comment on above: Order Comment: 106.1 Performed By: #### L 501.5200, L100.0100, L500.4050 #### [facility] [address] [place], [address] Eosinophils/100 WBC (Bld) 3.3 % Normal 0-5 [facility] Comment on above: Order Comment: 106.1 Performed By: #### L 501.5200, L100.0100, L500.4050 #### [facility] [address] [place], [address] Erythrocyte distribution width (RBC) [Ratio] 12.5 % Normal 11.6-14.6 [facility] Comment on above: Order Comment: 106.1 Performed By: #### L 501.5200, L100.0100, L500.4050 #### [facility] [address] [place], [address] Hematocrit (Bld) [Volume fraction] 43.0 % Normal 40-54 [facility] Comment on above: Order Comment: 106.1 Performed By: #### L 501.5200, L100.0100, L500.4050 #### [facility] [address] [place], [address] Hemoglobin (Bld) [Mass/Vol] 14.3 g/dL Normal 13.0-16.5 [facility] Comment on above: Order Comment: 106.1 Performed By: #### L 501.5200, L100.0100, L500.4050 #### [facility] [address] [place], [address] IG% 0.600 Normal 0.0-0.9 [facility] Comment on above: Order Comment: 106.1 Result Comment: IG% - Immature Granulocytes (promyelocytes, myelocytes and metamyelocytes) > 1% indicates that a LEFT SHIFT is Present. Performed By: #### L 501.5200, L100.0100, L500.4050 #### [facility] [address] [place], [address] Lymphocytes/100 WBC (Bld) 34.7 % Normal 19-41 [facility] Comment on above: Order Comment: 106.1 Performed By: #### L 501.5200, L100.0100, L500.4050 #### [facility] [address] [place], [address] MCH (RBC) [Entitic mass] 29.9 pg Normal 27.0-32.0 [facility] Comment on above: Order Comment: 106.1 Performed By: #### L 501.5200, L100.0100, L500.4050 #### [facility] [address] [place], [address] MCHC (RBC) [Mass/Vol] 33.3 g/dL Normal 32-36 [facility] Comment on above: Order Comment: 106.1 Performed By: #### L 501.5200, L100.0100, L500.4050 #### [facility] [address] [place], [address] MCV (RBC) [Entitic vol] 90.0 fL Normal 80-94 [facility] Comment on above: Order Comment: 106.1 Performed By: #### L 501.5200, L100.0100, [id number] #### [facility] [address] [place], [address] Monocytes/100 WBC (Bld) 9.4 % Normal 0-10 [facility] Comment on above: Order Comment: 106.1 Performed By: #### L 501.5200, L100.0100, L500.4050 #### [facility] [address] [place], [address] Neutrophils/100 WBC (Bld) 51.4 % Normal 47-70 [facility] Comment on above: Order Comment: 106.1 Performed By: #### L 501.5200, L100.0100, L500.4050 #### [facility] [address] [place], [address] Nucleated RBC (Bld) [#/Vol] 0 10*3/uL Normal 0-5 [facility] Comment on above: Order Comment: 106.1 Performed By: #### L 501.5200, L100.0100, L500.4050 #### [facility] [address] [place], [address] Platelet mean volume (Bld) [Entitic vol] 11.4 fL Normal 6.2-12.0 [facility] Comment on above: Order Comment: 106.1 Performed By: #### L 501.5200, L100.0100, L500.4050 #### [facility] [address] [place], [address] Platelets (Bld) [#/Vol] 188 10*3/uL Normal 150-450 [facility] Comment on above: Order Comment: 106.1 Performed By: #### L 501.5200, L100.0100, L500.4050 #### [facility] [address] [place], [address] RBC (Bld) [#/Vol] 4.78 10*6/uL Normal 4.6-6.2 [facility] Comment on above: Order Comment: 106.1 Performed By: #### L 501.5200, L100.0100, L500.4050 #### [facility] [address] [place], [address] RDW SD 41.0 fl Normal 35.1-43.9 [facility] Comment on above: Order Comment: 106.1 Performed By: #### L 501.5200, L100.0100, L500.4050 #### [facility] [address] [place], [address] WBC (Bld) [#/Vol] 6.3 10*3/uL Normal 4.4-11.0 [facility] Comment on above: Order Comment: 106.1 Performed By: #### L 501.5200, L100.0100, L500.4050 #### [facility] [address] [place], [address] Carbon dioxide, total [Moles /volume] in Central venous bloodOrdered By: Shabnam Paez on 11-27-2024 CO2 [Moles/Vol] 26.0 mmol/L 21.0-32.0 [facility] Chloride assayOrdered By: Esteban Paez on 11-27-2024 Chloride [Moles/Vol] 103 mmol/L 98-108 [facility] Comprehensive Metabolic Prof ilon 11-27-2024 Albumin [Mass/Vol] 4.2 g/dL Normal 3.5-5.0 [facility] Comment on above: Order Comment: 106.1 Performed By: #### L 501.5200, L100.0100, L500.4050 #### [facility] [address] [place], [address] Albumin/Globulin [Mass ratio] 1.4 {ratio} Normal 0.9-2.4 [facility] Comment on above: Order Comment: 106.1 Performed By: #### L 501.5200, L100.0100, L500.4050 #### [facility] [address] [place], [address] ALK PHOS 78 U/L Normal 40-129 [facility] Comment on above: Order Comment: 106.1 Performed By: #### L 501.5200, L100.0100, L500.4050 #### [facility] [address] [place], [address] ALT [Catalytic activity/Vol] 49 U/L High <=46 [facility] Comment on above: Order Comment: 106.1 Performed By: #### L 501.5200, L100.0100, L500.4050 #### [facility] [address] [place], [address] AST [Catalytic activity/Vol] 34 U/L Normal <=37 [facility] Comment on above: Order Comment: 106.1 Performed By: #### L 501.5200, L100.0100, L500.4050 #### [facility] [address] [place], [address] Bilirubin [Mass/Vol] 0.39 mg/dL Normal 0.00-1.30 [facility] Comment on above: Order Comment: 106.1 Performed By: #### L 501.5200, L100.0100, L500.4050 #### [facility] [address] [place], [address] BUN/CRE 18.9 RATIO Normal 10-20 [facility] Comment on above: Order Comment: 106.1 Performed By: #### L 501.5200, L100.0100, L500.4050 #### [facility] [address] [place], [address] Calcium [Mass/Vol] 9.9 mg/dL Normal 7.6-11.0 [facility] Comment on above: Order Comment: 106.1 Performed By: #### L 501.5200, L100.0100, L500.4050 #### [facility] [address] [place], [address] Chloride [Moles/Vol] 103 mmol/L Normal 98-108 [facility] Comment on above: Order Comment: 106.1 Performed By: #### L 501.5200, L100.0100, L500.4050 #### [facility] [address] [place], [address] CO2 [Moles/Vol] 26.0 mmol/L Normal 21.0-32.0 [facility] Comment on above: Order Comment: 106.1 Performed By: #### L 501.5200, L100.0100, L500.4050 #### [facility] [address] [place], [address] Creatinine [Mass/Vol] 0.85 mg/dL Normal 0.70-1.20 [facility] Comment on above: Order Comment: 106.1 Performed By: #### L 501.5200, L100.0100, L500.4050 #### [facility] [address] [place], [address] GAP 12 Normal 5-15 [facility] Comment on above: Order Comment: 106.1 Performed By: #### L 501.5200, L100.0100, L500.4050 #### [facility] [address] [place], [address] GFR/1.73 sq M.predicted among non-blacks MDRD (S/P/Bld) [Vol rate/Area] 119 mL/min/{1.73_m2} Normal >60 [facility] Comment on above: Order Comment: 106.1 Result Comment: mL/m in/1.73m2 CKD-EPI Creatinine Equation (2020) Performed By: #### L 501.5200, L100.0100, L500.4050 #### [facility] [address] [place], [address] Globulin (S) [Mass/Vol] 2.9 g/dL Normal 2.2-4.2 [facility] Comment on above: Order Comment: 106.1 Performed By: #### L 501.5200, L100.0100, L500.4050 #### [facility] [address] [place], [address] Glucose [Mass/Vol] 91 mg/dL Normal 70-99 [facility] Comment on above: Order Comment: 106.1 Performed By: #### L 501.5200, L100.0100, L500.4050 #### [facility] [address] [place], [address] Potassium [Moles/Vol] 4.1 mmol/L Normal 3.3-5.1 [facility] Comment on above: Order Comment: 106.1 Performed By: #### L 501.5200, L100.0100, L500.4050 #### [facility] [address] [place], [address] Sodium [Moles/Vol] 141 mmol/L Normal 133-145 [facility] Comment on above: Order Comment: 106.1 Performed By: #### L 501.5200, L100.0100, L500.4050 #### [facility] [address] [place], [address] T PROT 7.2 g/dL Normal 5.9-8.4 [facility] Comment on above: Order Comment: 106.1 Performed By: #### L 501.5200, L100.0100, L500.4050 #### [facility] [address] [place], [place], [address] Urea nitrogen [Mass/Vol] 16 mg/dL Normal 4-19 [facility] Comment on above: Order Comment: 106.1 Performed By: #### L 501.5200, L100.0100, L500.4050 #### [facility] [address] [place], [address] Eosinophil percentageOrdered By: Shabnam Paez on 11-27-2024 Eosinophils/100 WBC (Bld) 3.3 % 0-5 [facility] Erythrocyte distribution wid th ratioOrdered By: Shabnam Paez on 11-27-2024 Erythrocyte distribution width (RBC) [Ratio] 12.5 % 11.6-14.6 [facility] Erythrocyte distribution wid th standard deviationOrdered By: Shabnam Paez on 11-27-2024 Erythrocyte distribution width (RBC) [Ratio] 41.0 fl 35.1-43.9 [facility] Glomerular filtration rate ( GFR) estimation/1.73 sq m using serum, plasma, or whole bOrdered By: Shabnam Paez on 11-27-2024 GFR/1.73 sq M.predicted among non-blacks MDRD (S/P/Bld) [Vol rate/Area] 119 mL/min/{1.73_m2} >60 [facility] Comment on above: mL/min/1.73m2 CKD-EP I Creatinine Equation (2020) Hematocrit Auto (Bld) [Volum e fraction]Ordered By: Shabnam Paez on 11-27-2024 Hematocrit (Bld) [Volume fraction] 43.0 % 40-54 [facility] Hemoglobin measurementOrdere d By: Shabnam Paez on 11-27-2024 Hemoglobin (Bld) [Mass/Vol] 14.3 g/dL 13.0-16.5 [facility] Immature granulocytes/100 WB C Auto (Bld)Ordered By: Shabnam Paez on 11-27-2024 Immature granulocytes/100 WBC (Bld) 0.600 % 0.0-0.9 [facility] Comment on above: IG% - Immature Granu locytes (promyelocytes, myelocytes and metamyelocytes) > 1% indicates that a LEFT SHIFT is Present. Laboratory - Chemistry and C hemistry - challengeOrdered By: Shabnam Paez on 11-27-2024 AST [Catalytic activity/Vol] 34 U/L <38 [facility] MCV (mean corpuscular volume ) determinationOrdered By: Shabnam Paez on 11-27-2024 MCV (RBC) [Entitic vol] 90.0 fL 80-94 [facility] Magnesiumon 11-27-2024 Magnesium [Mass/Vol] 2.1 mg/dL Normal 1.5-2.2 [facility] Comment on above: Order Comment: 106.1 Performed By: #### L 501.5200, L100.0100, L500.4050 #### [facility] [address] [place] [address], [address] Magnesium measurement (mass/ volume)Ordered By: Shabnam Paez on 11-27-2024 Magnesium (Unsp spec) [Mass/Vol] 2.1 mg/dL 1.5-2.2 [facility] Mean corpuscular hemoglobin (MCH) determinationOrdered By: Shabnam Paez on 11-27-2024 MCH (RBC) [Entitic mass] 29.9 pg 27.0-32.0 [facility] Mean corpuscular hemoglobin concentration (MCHC) determinationOrdered By: Shabnam Paez on 11-27-2024 MCHC (RBC) [Mass/Vol] 33.3 g/dL 32-36 [facility] Mean platelet volume determi nationOrdered By: Shabnam Paez on 11-27-2024 Platelet mean volume (Bld) [Entitic vol] 11.4 fL 6.2-12.0 [facility] Monocyte percentageOrdered B y: Shabnam Paez on 11-27-2024 Monocytes/100 WBC (Bld) 9.4 % 0-10 [facility] Neutrophil percentageOrdered By: Shabnam Paez on 11-27-2024 Neutrophils/100 WBC (Bld) 51.4 % 47-70 [facility] Nucleated red blood cell per centageOrdered By: Shabnam Paez on 11-27-2024 Nucleated RBC/100 WBC (Bld) [Ratio] 0 % 0-5 [facility] Platelet countOrdered By: Esteban Paez on 11-27-2024 Platelets (Bld) [#/Vol] 188 10*3/uL 150-450 [facility] Potassium measurement (mass/ volume)Ordered By: Shabnam Paez on 11-27-2024 Potassium (Unsp spec) [Mass/Vol] 4.1 mmol/L 3.3-5.1 [facility] RBC Auto (Bld) [#/Vol]Ordere d By: Shabnam Paez on 11-27-2024 RBC (Bld) [#/Vol] 4.78 10*6/uL 4.6-6.2 [facility] Serum creatinine measurement (mass/volume)Ordered By: Shabnam Paez on 11-27-2024 Creatinine [Mass/Vol] 0.85 mg/dL 0.70-1.20 [facility] Serum globulin measurementOr dered By: Shabnam Paez on 11-27-2024 Globulin (S) [Mass/Vol] 2.9 g/dL 2.2-4.2 [facility] Serum glucose measurement (m ass/volume)Ordered By: Shabnam Paez on 11-27-2024 Glucose [Mass/Vol] 91 mg/dL 70-99 [facility] Serum or plasma alanine robert otransferase (ALT) measurementOrdered By: Shabnam Paez on 11-27-2024 ALT [Catalytic activity/Vol] 49 U/L High <47 [facility] Serum or plasma albumin vanessa urement (mass/volume)Ordered By: Shabnam Paez on 11-27-2024 Albumin [Mass/Vol] 4.2 g/dL 3.5-5.0 [facility] Serum or plasma albumin/glob ulin mass ratioOrdered By: Shabnam Paez on 11-27-2024 Albumin/Globulin [Mass ratio] 1.4 {ratio} 0.9-2.4 [facility] Serum or plasma alkaline all sphatase measurementOrdered By: Shabnam Paez on 11-27-2024 ALP [Catalytic activity/Vol] 78 U/L 40-129 [facility] Serum or plasma calcium vanessa urement (mass/volume)Ordered By: Shabnam Paez on 11-27-2024 Calcium [Mass/Vol] 9.9 mg/dL 7.6-11.0 [facility] Serum or plasma urea nitroge n measurement (mass/volume)Ordered By: Shabnam Paez on 11-27-2024 Urea nitrogen [Mass/Vol] 16 mg/dL 4-19 [facility] Sodium levelOrdered By: Corie Paez on 11-27-2024 Sodium [Moles/Vol] 141 mmol/L 133-145 [facility] Total proteinOrdered By: Cuauhtemoc Paez on 11-27-2024 Protein [Mass/Vol] 7.2 g/dL 5.9-8.4 [facility] White blood cell (WBC) count Ordered By: Shabnam Paez on 11-27-2024 WBC (Bld) [#/Vol] 6.3 10*3/uL 4.4-11.0 [facility] Absolute lymphocyte countOrd ered By: Shabnam Paez on 11-19-2024 Lymphocytes Auto (Unsp spec) [#/Vol] 2.11 10*3/uL 0.83-4.51 [facility] Absolute neutrophil countOrd ered By: Shabnam Paez on 11-19-2024 Neutrophils (Bld) [#/Vol] 3.5 10*3/uL 2.0-7.7 [facility] Anion gap in Serum or Plasma Ordered By: Shabnam Paez on 11-19-2024 Anion gap [Moles/Vol] 13 mmol/L 5-15 [facility] Automated lymphocyte count a s percentage of total leukocytesOrdered By: Shabnam Paez on 11-19-2024 Lymphocytes/100 WBC Auto (Unsp spec) 32.8 % 19-41 [facility] BUN/creatinine ratioOrdered By: Shabnam Paez on 11-19-2024 Urea nitrogen/Creatinine [Mass ratio] 27.0 mg/mg High 10-20 [facility] Basophil percentageOrdered B y: Shabnam Paez on 11-19-2024 Basophils/100 WBC (Bld) 0.8 % 0-1 [facility] Bilirubin, totalOrdered By: Shabnam Paez on 11-19-2024 Bilirubin [Mass/Vol] 0.20 mg/dL 0.00-1.30 [facility] CBC W/Diff, Automatedon 10-29-2024 Absolute Lymph 2.11 X10 3/uL Normal 0.83-4.51 [facility] Comment on above: Order Comment: 106.1 Performed By: #### L 3700.3000, L503.0106, L500.4050, L501.5200, L100.0100, L506.1001 #### [facility] [address] [place], [address] Absolute Neut 3.5 X10 3/uL Normal 2.0-7.7 [facility] Comment on above: Order Comment: 106.1 Performed By: #### L 3700.3000, L503.0106, L500.4050, L501.5200, L100.0100, L506.1001 #### [facility] [address] [place], [address] Basophils/100 WBC (Bld) 0.8 % Normal 0-1 [facility] Comment on above: Order Comment: 106.1 Performed By: #### L 3700.3000, L503.0106, L500.4050, L501.5200, L100.0100, L506.1001 #### [facility] [address] [place], [address] Eosinophils/100 WBC (Bld) 2.5 % Normal 0-5 [facility] Comment on above: Order Comment: 106.1 Performed By: #### L 3700.3000, L503.0106, L500.4050, L501.5200, L100.0100, L506.1001 #### [facility] [address] [place], [address] Erythrocyte distribution width (RBC) [Ratio] 12.4 % Normal 11.6-14.6 [facility] Comment on above: Order Comment: 106.1 Performed By: #### L 3700.3000, L503.0106, L500.4050, L501.5200, L100.0100, L506.1001 #### [facility] [address] [place], [address] Hematocrit (Bld) [Volume fraction] 41.6 % Normal 40-54 [facility] Comment on above: Order Comment: 106.1 Performed By: #### L 3700.3000, L503.0106, L500.4050, L501.5200, L100.0100, L506.1001 #### [facility] [address] [place], [address] Hemoglobin (Bld) [Mass/Vol] 13.8 g/dL Normal 13.0-16.5 [facility] Comment on above: Order Comment: 106.1 Performed By: #### L 3700.3000, L503.0106, L500.4050, L501.5200, L100.0100, L506.1001 #### [facility] [address] [place], [address] IG% 1.100 High 0.0-0.9 [facility] Comment on above: Order Comment: 106.1 Result Comment: IG% - Immature Granulocytes (promyelocytes, myelocytes and metamyelocytes) > 1% indicates that a LEFT SHIFT is Present. Performed By: #### L 3700.3000, L503.0106, L500.4050, L501.5200, L100.0100, L506.1001 #### [facility] [address] [place], [address] Lymphocytes/100 WBC (Bld) 32.8 % Normal 19-41 [facility] Comment on above: Order Comment: 106.1 Performed By: #### L 3700.3000, L503.0106, L500.4050, L501.5200, L100.0100, L506.1001 #### [facility] [address] [place], [address] MCH (RBC) [Entitic mass] 30.1 pg Normal 27.0-32.0 [facility] Comment on above: Order Comment: 106.1 Performed By: #### L 3700.3000, L503.0106, L500.4050, L501.5200, L100.0100, L506.1001 #### [facility] [address] [place], [address] MCHC (RBC) [Mass/Vol] 33.2 g/dL Normal 32-36 [facility] Comment on above: Order Comment: 106.1 Performed By: #### L 3700.3000, L503.0106, L500.4050, L501.5200, L100.0100, L506.1001 #### [facility] [address] [place], [address] MCV (RBC) [Entitic vol] 90.8 fL Normal 80-94 [facility] Comment on above: Order Comment: 106.1 Performed By: #### L 3700.3000, L503.0106, L500.4050, L501.5200, L100.0100, L506.1001 #### [facility] [address] [place], [address] Monocytes/100 WBC (Bld) 8.6 % Normal 0-10 [facility] Comment on above: Order Comment: 106.1 Performed By: #### L 3700.3000, L503.0106, L500.4050, L501.5200, L100.0100, L506.1001 #### [facility] [address] [place], [address] Neutrophils/100 WBC (Bld) 54.2 % Normal 47-70 [facility] Comment on above: Order Comment: 106.1 Performed By: #### L 3700.3000, L503.0106, L500.4050, L501.5200, L100.0100, L506.1001 #### [facility] [address] [place], [address] Nucleated RBC (Bld) [#/Vol] 0 10*3/uL Normal 0-5 [facility] Comment on above: Order Comment: 106.1 Performed By: #### L 3700.3000, L503.0106, L500.4050, L501.5200, L100.0100, L506.1001 #### [facility] [address] [place], [address] Platelet mean volume (Bld) [Entitic vol] 11.4 fL Normal 6.2-12.0 [facility] Comment on above: Order Comment: 106.1 Performed By: #### L 3700.3000, L503.0106, L500.4050, L501.5200, L100.0100, L506.1001 #### [facility] [address] [place], [address] Platelets (Bld) [#/Vol] 251 10*3/uL Normal 150-450 [facility] Comment on above: Order Comment: 106.1 Performed By: #### L 3700.3000, L503.0106, L500.4050, L501.5200, L100.0100, L506.1001 #### [facility] [address] [place], [address] RBC (Bld) [#/Vol] 4.58 10*6/uL Low 4.6-6.2 [facility] Comment on above: Order Comment: 106.1 Performed By: #### L 3700.3000, L503.0106, L500.4050, L501.5200, L100.0100, L506.1001 #### [facility] [address] [place], [address] RDW SD 40.9 fl Normal 35.1-43.9 [facility] Comment on above: Order Comment: 106.1 Performed By: #### L 3700.3000, L503.0106, L500.4050, L501.5200, L100.0100, L506.1001 #### [facility] [address] [place], [address] WBC (Bld) [#/Vol] 6.4 10*3/uL Normal 4.4-11.0 [facility] Comment on above: Order Comment: 106.1 Performed By: #### L 3700.3000, L503.0106, L500.4050, L501.5200, L100.0100, L506.1001 #### [facility] [address] [place], [address] Carbon dioxide, total [Moles /volume] in Central venous bloodOrdered By: Shabnam Paez on 11-19-2024 CO2 [Moles/Vol] 24.7 mmol/L 21.0-32.0 [facility] Chloride assayOrdered By: Esteban Paez on 11-19-2024 Chloride [Moles/Vol] 103 mmol/L 98-108 [facility] Comprehensive Metabolic Prof ilon 11-19-2024 Albumin [Mass/Vol] 4.2 g/dL Normal 3.5-5.0 [facility] Comment on above: Order Comment: 106.1 Performed By: #### L 3700.3000, L503.0106, L500.4050, L501.5200, L100.0100, L506.1001 #### [facility] [address] [place], [address] Albumin/Globulin [Mass ratio] 1.3 {ratio} Normal 0.9-2.4 [facility] Comment on above: Order Comment: 106.1 Performed By: #### L 3700.3000, L503.0106, L500.4050, L501.5200, L100.0100, L506.1001 #### [facility] [address] [place], [address] ALK PHOS 74 U/L Normal 40-129 [facility] Comment on above: Order Comment: 106.1 Performed By: #### L 3700.3000, L503.0106, L500.4050, L501.5200, L100.0100, L506.1001 #### [facility] [address] [place], [address] ALT [Catalytic activity/Vol] 35 U/L Normal <=46 [facility] Comment on above: Order Comment: 106.1 Performed By: #### L 3700.3000, L503.0106, L500.4050, L501.5200, L100.0100, L506.1001 #### [facility] [address] [place], [address] AST [Catalytic activity/Vol] 25 U/L Normal <=37 [facility] Comment on above: Order Comment: 106.1 Performed By: #### L 3700.3000, L503.0106, L500.4050, L501.5200, L100.0100, L506.1001 #### [facility] [address] [place], [address] Bilirubin [Mass/Vol] 0.20 mg/dL Normal 0.00-1.30 [facility] Comment on above: Order Comment: 106.1 Performed By: #### L 3700.3000, L503.0106, L500.4050, L501.5200, L100.0100, L506.1001 #### [facility] [address] [place], [address] BUN/CRE 27.0 RATIO High 10-20 [facility] Comment on above: Order Comment: 106.1 Performed By: #### L 3700.3000, L503.0106, L500.4050, L501.5200, L100.0100, L506.1001 #### [facility] [address] [place], [address] Calcium [Mass/Vol] 10.1 mg/dL Normal 7.6-11.0 [facility] Comment on above: Order Comment: 106.1 Performed By: #### L 3700.3000, L503.0106, L500.4050, L501.5200, L100.0100, L506.1001 #### [facility] [address] [place], [address] Chloride [Moles/Vol] 103 mmol/L Normal 98-108 [facility] Comment on above: Order Comment: 106.1 Performed By: #### L 3700.3000, L503.0106, L500.4050, L501.5200, L100.0100, L506.1001 #### [facility] [address] [place], [address] CO2 [Moles/Vol] 24.7 mmol/L Normal 21.0-32.0 [facility] Comment on above: Order Comment: 106.1 Performed By: #### L 3700.3000, L503.0106, L500.4050, L501.5200, L100.0100, L506.1001 #### [facility] [address] [place], [address] Creatinine [Mass/Vol] 0.76 mg/dL Normal 0.70-1.20 [facility] Comment on above: Order Comment: 106.1 Performed By: #### L 3700.3000, L503.0106, L500.4050, L501.5200, L100.0100, L506.1001 #### [facility] [address] [place], [address] GAP 13 Normal 5-15 [facility] Comment on above: Order Comment: 106.1 Performed By: #### L 3700.3000, L503.0106, L500.4050, L501.5200, L100.0100, L506.1001 #### [facility] [address] [place], [address] GFR/1.73 sq M.predicted among non-blacks MDRD (S/P/Bld) [Vol rate/Area] 123 mL/min/{1.73_m2} Normal >60 [facility] Comment on above: Order Comment: 106.1 Result Comment: mL/m in/1.73m2 CKD-EPI Creatinine Equation (2020) Performed By: #### L 3700.3000, L503.0106, L500.4050, L501.5200, L100.0100, L506.1001 #### [facility] [address] [place], [address] Globulin (S) [Mass/Vol] 3.3 g/dL Normal 2.2-4.2 [facility] Comment on above: Order Comment: 106.1 Performed By: #### L 3700.3000, L503.0106, L500.4050, L501.5200, L100.0100, L506.1001 #### [facility] [address] [place], [address] Glucose [Mass/Vol] 98 mg/dL Normal 70-99 [facility] Comment on above: Order Comment: 106.1 Performed By: #### L 3700.3000, L503.0106, L500.4050, L501.5200, L100.0100, L506.1001 #### [facility] [address] [place], [address] Potassium [Moles/Vol] 4.2 mmol/L Normal 3.3-5.1 [facility] Comment on above: Order Comment: 106.1 Performed By: #### L 3700.3000, L503.0106, L500.4050, L501.5200, L100.0100, L506.1001 #### [facility] [address] [place], [address] Sodium [Moles/Vol] 140 mmol/L Normal 133-145 [facility] Comment on above: Order Comment: 106.1 Performed By: #### L 3700.3000, L503.0106, L500.4050, L501.5200, L100.0100, L506.1001 #### [facility] [address] [place], [address] T PROT 7.5 g/dL Normal 5.9-8.4 [facility] Comment on above: Order Comment: 106.1 Performed By: #### L 3700.3000, L503.0106, L500.4050, L501.5200, L100.0100, L506.1001 #### [facility] [address] [place], [address] Urea nitrogen [Mass/Vol] 21 mg/dL High 4-19 [facility] Comment on above: Order Comment: 106.1 Performed By: #### L 3700.3000, L503.0106, L500.4050, L501.5200, L100.0100, L506.1001 #### [facility] [address] [place], [address] Eosinophil percentageOrdered By: Shabnam Paez on 11-19-2024 Eosinophils/100 WBC (Bld) 2.5 % 0-5 [facility] Erythrocyte distribution wid th ratioOrdered By: Shabnam Paez on 11-19-2024 Erythrocyte distribution width (RBC) [Ratio] 12.4 % 11.6-14.6 [facility] Erythrocyte distribution wid th standard deviationOrdered By: Shabnam Paez on 11-19-2024 Erythrocyte distribution width (RBC) [Ratio] 40.9 fl 35.1-43.9 [facility] Glomerular filtration rate ( GFR) estimation/1.73 sq m using serum, plasma, or whole bOrdered By: Shabnam Paez on 11-19-2024 GFR/1.73 sq M.predicted among non-blacks MDRD (S/P/Bld) [Vol rate/Area] 123 mL/min/{1.73_m2} >60 [facility] Comment on above: mL/min/1.73m2 CKD-EP I Creatinine Equation (2020) Hematocrit Auto (Bld) [Volum e fraction]Ordered By: Shabnam Paez on 11-19-2024 Hematocrit (Bld) [Volume fraction] 41.6 % 40-54 [facility] [facility] Hemoglobin measurementOrdere d By: Shabnam Paez on 11-19-2024 Hemoglobin (Bld) [Mass/Vol] 13.8 g/dL 13.0-16.5 [facility] Immature granulocytes/100 WB C Auto (Bld)Ordered By: Shabnam Paez on 11-19-2024 Immature granulocytes/100 WBC (Bld) 1.100 % High 0.0-0.9 [facility] Comment on above: IG% - Immature Granu locytes (promyelocytes, myelocytes and metamyelocytes) > 1% indicates that a LEFT SHIFT is Present. Laboratory - Chemistry and C hemistry - challengeOrdered By: Shabnam Paez on 11-19-2024 AST [Catalytic activity/Vol] 25 U/L <38 [facility] MCV (mean corpuscular volume ) determinationOrdered By: Shabnam Paez on 11-19-2024 MCV (RBC) [Entitic vol] 90.8 fL 80-94 [facility] Magnesiumon 11-19-2024 Magnesium [Mass/Vol] 2.1 mg/dL Normal 1.5-2.2 [facility] Comment on above: Order Comment: 106.1 Performed By: #### L 3700.3000, L503.0106, L500.4050, L501.5200, L100.0100, L506.1001 #### [facility] [place], [address] Magnesium measurement (mass/ volume)Ordered By: Shabnam Paez on 11-19-2024 Magnesium (Unsp spec) [Mass/Vol] 2.1 mg/dL 1.5-2.2 [facility] Mean corpuscular hemoglobin (MCH) determinationOrdered By: Shabnam Paez on 11-19-2024 MCH (RBC) [Entitic mass] 30.1 pg 27.0-32.0 [facility] Mean corpuscular hemoglobin concentration (MCHC) determinationOrdered By: Shabnam Paez on 11-19-2024 MCHC (RBC) [Mass/Vol] 33.2 g/dL 32-36 [facility] Mean platelet volume determi nationOrdered By: Shabnam Paez on 11-19-2024 Platelet mean volume (Bld) [Entitic vol] 11.4 fL 6.2-12.0 [facility] Monocyte percentageOrdered B y: Shabnam Paez on 11-19-2024 Monocytes/100 WBC (Bld) 8.6 % 0-10 [facility] Neutrophil percentageOrdered By: Shabnam Paez on 11-19-2024 Neutrophils/100 WBC (Bld) 54.2 % 47-70 [facility] Nucleated red blood cell per centageOrdered By: Shabnam Paez on 11-19-2024 Nucleated RBC/100 WBC (Bld) [Ratio] 0 % 0-5 [facility] Platelet countOrdered By: Esteban Paez on 11-19-2024 Platelets (Bld) [#/Vol] 251 10*3/uL 150-450 [facility] Potassium measurement (mass/ volume)Ordered By: Shabnam Paez on 11-19-2024 Potassium (Unsp spec) [Mass/Vol] 4.2 mmol/L 3.3-5.1 [facility] RBC Auto (Bld) [#/Vol]Ordere d By: Shabnam Paez on 11-19-2024 RBC (Bld) [#/Vol] 4.58 10*6/uL Low 4.6-6.2 [facility] Serum creatinine measurement (mass/volume)Ordered By: Shabnam Paez on 11-19-2024 Creatinine [Mass/Vol] 0.76 mg/dL 0.70-1.20 [facility] Serum globulin measurementOr dered By: Shabnam Paez on 11-19-2024 Globulin (S) [Mass/Vol] 3.3 g/dL 2.2-4.2 [facility] Serum glucose measurement (m ass/volume)Ordered By: Shabnam Paez on 11-19-2024 Glucose [Mass/Vol] 98 mg/dL 70-99 [facility] Serum or plasma alanine robert otransferase (ALT) measurementOrdered By: Shabnam Paez on 11-19-2024 ALT [Catalytic activity/Vol] 35 U/L <47 [facility] Serum or plasma albumin vanessa urement (mass/volume)Ordered By: Shabnam Paez on 11-19-2024 Albumin [Mass/Vol] 4.2 g/dL 3.5-5.0 [facility] Serum or plasma albumin/glob ulin mass ratioOrdered By: Shabnam Paez on 11-19-2024 Albumin/Globulin [Mass ratio] 1.3 {ratio} 0.9-2.4 [facility] Serum or plasma alkaline all sphatase measurementOrdered By: Shabnam Paez on 11-19-2024 ALP [Catalytic activity/Vol] 74 U/L 40-129 [facility] Serum or plasma calcium vanessa urement (mass/volume)Ordered By: Shabnam Paez on 11-19-2024 Calcium [Mass/Vol] 10.1 mg/dL 7.6-11.0 [facility] Serum or plasma urea nitroge n measurement (mass/volume)Ordered By: Shabnam Paez on 11-19-2024 Urea nitrogen [Mass/Vol] 21 mg/dL High 4-19 [facility] Sodium levelOrdered By: Corie Paez on 11-19-2024 Sodium [Moles/Vol] 140 mmol/L 133-145 [facility] Total proteinOrdered By: Cuauhtemoc Paez on 11-19-2024 Protein [Mass/Vol] 7.5 g/dL 5.9-8.4 [facility] White blood cell (WBC) count Ordered By: Shabnam Paez on 11-19-2024 WBC (Bld) [#/Vol] 6.4 10*3/uL 4.4-11.0 [facility] Comprehensive Metabolic Prof ilon 11-13-2024 Bilirubin [Mass/Vol] 0.17 mg/dL Normal 0.00-1.30 [facility] Comment on above: Order Comment: 106.1 Performed By: #### L 3700.3000, L503.0106, L500.4050, L501.5200, L100.0100, L506.1001 #### [facility] [address] [facility] [place], [address] L3700.3000on 11-13-2024 PHENobarbital [Mass/Vol] ug/mL Abnormal 15-40 [facility] Comment on above: Order Comment: 106.1 Result Comment: Ve rified by repeat analysis Detection Limit = 3 Performed at: [facility] [address] [id number] [employer] Consultant: Kennedy Morse PhD, Phone: [phone] Performed By: #### L 3700.3000, L503.0106, L500.4050, L501.5200, L100.0100, L506.1001 #### [facility] [address] [facility] [place], [address] Absolute lymphocyte countOrd ered By: Shabnam Paez on 11-12-2024 Lymphocytes Auto (Unsp spec) [#/Vol] 2.46 10*3/uL 0.83-4.51 [facility] Absolute neutrophil countOrd ered By: Shabnam Paez on 11-12-2024 Neutrophils (Bld) [#/Vol] 4.5 10*3/uL 2.0-7.7 [facility] Anion gap in Serum or Plasma Ordered By: Shabnam Paez on 11-12-2024 Anion gap [Moles/Vol] 11 mmol/L 5-15 [facility] Automated lymphocyte count a s percentage of total leukocytesOrdered By: Shabnam Nicolásjerry on 11-12-2024 Lymphocytes/100 WBC Auto (Unsp spec) 30.7 % 19-41 [facility] BUN/creatinine ratioOrdered By: Shabnam Nicolásjerry on 11-12-2024 Urea nitrogen/Creatinine [Mass ratio] 24.3 mg/mg High 10-20 [facility] Basophil percentageOrdered B y: Shabnam Paez on 11-12-2024 Basophils/100 WBC (Bld) 0.6 % 0-1 [facility] Bilirubin, totalOrdered By: Shabnam Paez on 11-12-2024 Bilirubin [Mass/Vol] 0.17 mg/dL 0.00-1.30 [facility] CBC W/Diff, Automatedon 10-28 Absolute Lymph 2.46 X10 3/uL Normal 0.83-4.51 [facility] Comment on above: Order Comment: 106.1 Performed By: #### L 3700.3000, L503.0106, L500.4050, L501.5200, L100.0100, L506.1001 #### [facility] [address] [facility] [place], [place], [id number] (505) Absolute Neut 4.5 X10 3/uL Normal 2.0-7.7 [facility] Comment on above: Order Comment: 106.1 Performed By: #### L 3700.3000, L503.0106, L500.4050, L501.5200, L100.0100, L506.1001 #### [facility] [address] [place], [address] Basophils/100 WBC (Bld) 0.6 % Normal 0-1 [facility] Comment on above: Order Comment: 106.1 Performed By: #### L 3700.3000, L503.0106, L500.4050, L501.5200, L100.0100, L506.1001 #### [facility] [address] [place], [address] Eosinophils/100 WBC (Bld) 2.0 % Normal 0-5 [facility] Comment on above: Order Comment: 106.1 Performed By: #### L 3700.3000, L503.0106, L500.4050, L501.5200, L100.0100, L506.1001 #### [facility] [address] [place], [address] Erythrocyte distribution width (RBC) [Ratio] 12.2 % Normal 11.6-14.6 [facility] Comment on above: Order Comment: 106.1 Performed By: #### L 3700.3000, L503.0106, L500.4050, L501.5200, L100.0100, L506.1001 #### [facility] [address] [place], [address] Hematocrit (Bld) [Volume fraction] 39.9 % Low 40-54 [facility] Comment on above: Order Comment: 106.1 Performed By: #### L 3700.3000, L503.0106, L500.4050, L501.5200, L100.0100, L506.1001 #### [facility] [address] [place], [address] Hemoglobin (Bld) [Mass/Vol] 13.4 g/dL Normal 13.0-16.5 [facility] Comment on above: Order Comment: 106.1 Performed By: #### L 3700.3000, L503.0106, L500.4050, L501.5200, L100.0100, L506.1001 #### [facility] [address] [place], [address] IG% 0.900 Normal 0.0-0.9 [facility] Comment on above: Order Comment: 106.1 Result Comment: IG% - Immature Granulocytes (promyelocytes, myelocytes and metamyelocytes) > 1% indicates that a LEFT SHIFT is Present. Performed By: #### L 3700.3000, L503.0106, L500.4050, L501.5200, L100.0100, L506.1001 #### [facility] [address] [place], [address] Lymphocytes/100 WBC (Bld) 30.7 % Normal 19-41 [facility] Comment on above: Order Comment: 106.1 Performed By: #### L 3700.3000, L503.0106, L500.4050, L501.5200, L100.0100, L506.1001 #### [facility] [address] [place], [address] MCH (RBC) [Entitic mass] 30.1 pg Normal 27.0-32.0 [facility] Comment on above: Order Comment: 106.1 Performed By: #### L 3700.3000, L503.0106, L500.4050, L501.5200, L100.0100, L506.1001 #### [facility] [address] [place], [address] MCHC (RBC) [Mass/Vol] 33.6 g/dL Normal 32-36 [facility] Comment on above: Order Comment: 106.1 Performed By: #### L 3700.3000, L503.0106, L500.4050, L501.5200, L100.0100, L506.1001 #### [facility] [address] [place], [address] MCV (RBC) [Entitic vol] 89.7 fL Normal 80-94 [facility] Comment on above: Order Comment: 106.1 Performed By: #### L 3700.3000, L503.0106, L500.4050, L501.5200, L100.0100, L506.1001 #### [facility] [address] [place], [address] Monocytes/100 WBC (Bld) 10.2 % High 0-10 [facility] Comment on above: Order Comment: 106.1 Performed By: #### L 3700.3000, L503.0106, L500.4050, L501.5200, L100.0100, L506.1001 #### [facility] [address] [place], [address] Neutrophils/100 WBC (Bld) 55.6 % Normal 47-70 [facility] Comment on above: Order Comment: 106.1 Performed By: #### L 3700.3000, L503.0106, L500.4050, L501.5200, L100.0100, L506.1001 #### [facility] [address] [place], [address] Nucleated RBC (Bld) [#/Vol] 0 10*3/uL Normal 0-5 [facility] Comment on above: Order Comment: 106.1 Performed By: #### L 3700.3000, L503.0106, L500.4050, L501.5200, L100.0100, L506.1001 #### [facility] [address] [place], [address] Platelet mean volume (Bld) [Entitic vol] 10.9 fL Normal 6.2-12.0 [facility] Comment on above: Order Comment: 106.1 Performed By: #### L 3700.3000, L503.0106, L500.4050, L501.5200, L100.0100, L506.1001 #### [facility] [address] [place], [address] Platelets (Bld) [#/Vol] 224 10*3/uL Normal 150-450 [facility] Comment on above: Order Comment: 106.1 Performed By: #### L 3700.3000, L503.0106, L500.4050, L501.5200, L100.0100, L506.1001 #### [facility] [address] [place], [address] RBC (Bld) [#/Vol] 4.45 10*6/uL Low 4.6-6.2 [facility] Comment on above: Order Comment: 106.1 Performed By: #### L 3700.3000, L503.0106, L500.4050, L501.5200, L100.0100, L506.1001 #### [facility] [address] [place], [address] RDW SD 40.2 fl Normal 35.1-43.9 [facility] Comment on above: Order Comment: 106.1 Performed By: #### L 3700.3000, L503.0106, L500.4050, L501.5200, L100.0100, L506.1001 #### [facility] [address] [place], [address] WBC (Bld) [#/Vol] 8.0 10*3/uL Normal 4.4-11.0 [facility] Comment on above: Order Comment: 106.1 Performed By: #### L 3700.3000, L503.0106, L500.4050, L501.5200, L100.0100, L506.1001 #### [facility] [address] [place], [address] Carbon dioxide, total [Moles /volume] in Central venous bloodOrdered By: Shabnam Paez on 11-12-2024 CO2 [Moles/Vol] 23.8 mmol/L 21.0-32.0 [facility] Chloride assayOrdered By: Esteban Paez on 11-12-2024 Chloride [Moles/Vol] 103 mmol/L 98-108 [facility] Eosinophil percentageOrdered By: Shabnam Paez on 11-12-2024 Eosinophils/100 WBC (Bld) 2.0 % 0-5 [facility] Erythrocyte distribution wid th ratioOrdered By: Shabnam Paez on 11-12-2024 Erythrocyte distribution width (RBC) [Ratio] 12.2 % 11.6-14.6 [facility] Erythrocyte distribution wid th standard deviationOrdered By: Shabnam Paez on 11-12-2024 Erythrocyte distribution width (RBC) [Ratio] 40.2 fl 35.1-43.9 [facility] Glomerular filtration rate ( GFR) estimation/1.73 sq m using serum, plasma, or whole bOrdered By: Shabnam Paez on 11-12-2024 GFR/1.73 sq M.predicted among non-blacks MDRD (S/P/Bld) [Vol rate/Area] 124 mL/min/{1.73_m2} >60 [facility] Comment on above: mL/min/1.73m2 CKD-EP I Creatinine Equation (2020) Hematocrit Auto (Bld) [Volum e fraction]Ordered By: Shabnam Paez on 11-12-2024 Hematocrit (Bld) [Volume fraction] 39.9 % Low 40-54 [facility] Hemoglobin measurementOrdere d By: Shabnam Paez on 11-12-2024 Hemoglobin (Bld) [Mass/Vol] 13.4 g/dL 13.0-16.5 [facility] Immature granulocytes/100 WB C Auto (Bld)Ordered By: Shabnam Paez on 11-12-2024 Immature granulocytes/100 WBC (Bld) 0.900 % 0.0-0.9 [facility] Comment on above: IG% - Immature Granu locytes (promyelocytes, myelocytes and metamyelocytes) > 1% indicates that a LEFT SHIFT is Present. Laboratory - Chemistry and C hemistry - challengeOrdered By: Shabnam Paez on 11-12-2024 AST [Catalytic activity/Vol] 25 U/L <38 [facility] MCV (mean corpuscular volume ) determinationOrdered By: Shabnam Paez on 11-12-2024 MCV (RBC) [Entitic vol] 89.7 fL 80-94 [facility] Magnesiumon 11-12-2024 Magnesium [Mass/Vol] 2.2 mg/dL Normal 1.5-2.2 [facility] Comment on above: Order Comment: 106.1 Performed By: #### L 3700.3000, L503.0106, L500.4050, L501.5200, L100.0100, L506.1001 #### [facility] [address] [place], [address] Magnesium measurement (mass/ volume)Ordered By: Shabnam Paez on 11-12-2024 Magnesium (Unsp spec) [Mass/Vol] 2.2 mg/dL 1.5-2.2 [facility] Mean corpuscular hemoglobin (MCH) determinationOrdered By: Shabnam Paez on 11-12-2024 MCH (RBC) [Entitic mass] 30.1 pg 27.0-32.0 [facility] Mean corpuscular hemoglobin concentration (MCHC) determinationOrdered By: Shabnam Paez on 11-12-2024 MCHC (RBC) [Mass/Vol] 33.6 g/dL 32-36 [facility] Mean platelet volume determi nationOrdered By: Shabnam Paez on 11-12-2024 Platelet mean volume (Bld) [Entitic vol] 10.9 fL 6.2-12.0 [facility] Monocyte percentageOrdered B y: Shabnam Paez on 11-12-2024 Monocytes/100 WBC (Bld) 10.2 % High 0-10 [facility] Neutrophil percentageOrdered By: Shabnam Paez on 11-12-2024 Neutrophils/100 WBC (Bld) 55.6 % 47-70 [facility] Nucleated red blood cell per centageOrdered By: Shabnam Paez on 11-12-2024 Nucleated RBC/100 WBC (Bld) [Ratio] 0 % 0-5 [facility] Platelet countOrdered By: Esteban Paez on 11-12-2024 Platelets (Bld) [#/Vol] 224 10*3/uL 150-450 [facility] Potassium measurement (mass/ volume)Ordered By: Shabnam Paez on 11-12-2024 Potassium (Unsp spec) [Mass/Vol] 4.1 mmol/L 3.3-5.1 [facility] RBC Auto (Bld) [#/Vol]Ordere d By: Shabnam Paez on 11-12-2024 RBC (Bld) [#/Vol] 4.45 10*6/uL Low 4.6-6.2 [facility] Serum creatinine measurement (mass/volume)Ordered By: Shabnam Paez on 11-12-2024 Creatinine [Mass/Vol] 0.74 mg/dL 0.70-1.20 [facility] Serum globulin measurementOr dered By: Shabnam Paez on 11-12-2024 Globulin (S) [Mass/Vol] 2.9 g/dL 2.2-4.2 [facility] Serum glucose measurement (m ass/volume)Ordered By: Shabnam Paez on 11-12-2024 Glucose [Mass/Vol] 98 mg/dL 70-99 [facility] Serum or plasma alanine robert otransferase (ALT) measurementOrdered By: Shabnam Paez on 11-12-2024 ALT [Catalytic activity/Vol] 46 U/L <47 [facility] Serum or plasma albumin vanessa urement (mass/volume)Ordered By: Shabnam Paez on 11-12-2024 Albumin [Mass/Vol] 4.2 g/dL 3.5-5.0 [facility] Serum or plasma albumin/glob ulin mass ratioOrdered By: Shabnam Paez on 11-12-2024 Albumin/Globulin [Mass ratio] 1.4 {ratio} 0.9-2.4 [facility] Serum or plasma alkaline all sphatase measurementOrdered By: Shabnam Paez on 11-12-2024 ALP [Catalytic activity/Vol] 70 U/L 40-129 [facility] Serum or plasma calcium vanessa urement (mass/volume)Ordered By: Shabnam Paez on 11-12-2024 Calcium [Mass/Vol] 9.7 mg/dL 7.6-11.0 [facility] Serum or plasma urea nitroge n measurement (mass/volume)Ordered By: Shabnam Paez on 11-12-2024 Urea nitrogen [Mass/Vol] 18 mg/dL 4-19 [facility] Sodium levelOrdered By: Corie Paez on 11-12-2024 Sodium [Moles/Vol] 138 mmol/L 133-145 [facility] Total proteinOrdered By: Cuauhtemoc Paez on 11-12-2024 Protein [Mass/Vol] 7.1 g/dL 5.9-8.4 [facility] Vitamin B12on 11-12-2024 Cobalamin (Vitamin B12) [Mass/Vol] 647 pg/mL Normal 180-914 [facility] Comment on above: Order Comment: 106.1 Performed By: #### L 3700.3000, L503.0106, L500.4050, L501.5200, L100.0100, L506.1001 #### [facility] [address] [place], [place], [id number] Vitamin B12 ser/plasOrdered By: Shabnam Paez on 11-12-2024 Cobalamin (Vitamin B12) [Mass/Vol] 647 pg/mL 180-914 [facility] Vitamin D,25 Hydroxyon 11-12 Vitamin D 25-OH 16.1 ng/mL Low 30-100 [facility] Comment on above: Order Comment: 106.1 Result Comment: Eleanor min D Status Deficiency: <20 ng/mL (50nmol/L) Insufficiency: 20-30 ng/mL (50-75 nmol/L) Sufficiency: 30-100 ng/mL (75-250 nmol/L) Toxicity: >100 ng/mL (>250 nmol/L) Performed By: #### L 3700.3000, L503.0106, L500.4050, L501.5200, L100.0100, L506.1001 #### [facility] [address] [place], [place], [id number] White blood cell (WBC) count Ordered By: Shabnam Paez on 11-12-2024 WBC (Bld) [#/Vol] 8.0 10*3/uL 4.4-11.0 [facility] Urine Drug Screen (VISTA)on 11-09-2024 AMPHETAMINES Negative Normal <1000 ng/mL [facility] Comment on above: Order Comment: 106.1 Performed By: #### L 3700.3000, L503.0106, L500.4050, L501.5200, L100.0100, L506.1001 #### [facility] [address] [place], [address] BARBITIURATES Positive Normal < 200 ng/mL [facility] Comment on above: Order Comment: 106.1 Result Comment: If c onfirmation testing is needed, a separate order will be required to send out testing to the reference laboratory. Performed By: #### L 3700.3000, L503.0106, L500.4050, L501.5200, L100.0100, L506.1001 #### [facility] [address] [place] [address] BENZODIAZIPINE Negative Normal < 200 ng/mL [facility] Comment on above: Order Comment: 106.1 Performed By: #### L 3700.3000, L503.0106, L500.4050, L501.5200, L100.0100, L506.1001 #### [facility] [address] [place], [place], [facility] BUP Ur Drug Scr Negative Normal < 200 ng/mL [facility] Comment on above: Order Comment: 106.1 Performed By: #### L 3700.3000, L503.0106, L500.4050, L501.5200, L100.0100, L506.1001 #### [facility] [address] [place], [place], [facility] COCAINE Negative Normal < 300 ng/mL [facility] Comment on above: Order Comment: 106.1 Performed By: #### L 3700.3000, L503.0106, L500.4050, L501.5200, L100.0100, L506.1001 #### [facility] [address] [place], [address] Fentanyl Negative Normal [facility] Comment on above: Order Comment: 106.1 Performed By: #### L 3700.3000, L503.0106, L500.4050, L501.5200, L100.0100, L506.1001 #### [facility] [address] [place], [address] METHADONE Negative Normal < 300 ng/mL [facility] Comment on above: Order Comment: 106.1 Performed By: #### L 3700.3000, L503.0106, L500.4050, L501.5200, L100.0100, L506.1001 #### [facility] [address] [place], [address] OPIATES Negative Normal < 300 ng/mL [facility] Comment on above: Order Comment: 106.1 Performed By: #### L 3700.3000, L503.0106, L500.4050, L501.5200, L100.0100, L506.1001 #### [facility] [address] [place], [place], [facility] OXYCODONE Positive Normal < 100 ng/mL [facility] Comment on above: Order Comment: 106.1 Result Comment: If c onfirmation testing is needed, a separate order will be required to send out testing to the reference laboratory. Performed By: #### L 3700.3000, L503.0106, L500.4050, L501.5200, L100.0100, L506.1001 #### [facility] [address] [place], [address] PCP Negative Normal < 25 ng/mL [facility] Comment on above: Order Comment: 106.1 Performed By: #### L 3700.3000, L503.0106, L500.4050, L501.5200, L100.0100, L506.1001 #### [facility] [address] [place], [address] THC Positive Normal < 50 ng/mL [facility] Comment on above: Order Comment: 106.1 Result Comment: If c onfirmation testing is needed, a separate order will be required to send out testing to the reference laboratory. Performed By: #### L 3700.3000, L503.0106, L500.4050, L501.5200, L100.0100, L506.1001 #### [facility] [address] [place], [address] Amphetamine detection with 1 000 ng/mL as cutoffOrdered By: Shabnam Paez on 11-08-2024 Amphetamines Screen method >1000 ng/mL Ql (U) Negative <1000 ng/mL [facility] Amphetamines Screen method >1000 ng/mL Ql (U) Positive < 200 ng/mL [facility] Comment on above: If confirmation test ing is needed, a separate order will be required to send out testing to the reference laboratory. No Panel InformationOrdered By: Shabnam Paez on 11-08-2024 Urine Buprenorphine Qualitative Negative < 200 ng/mL [facility] Urine Oxycodone Screen Positive < 100 ng/mL [facility] Comment on above: If confirmation test ing is needed, a separate order will be required to send out testing to the reference laboratory. Quantitative urine opiates m easurementOrdered By: Shabnam Paez on 11-08-2024 Opiates Ql (U) Negative < 300 ng/mL [facility] Screening urine fentanyl chapo surementOrdered By: Shabnam Paez on 11-08-2024 fentaNYL Screen Ql (U) Negative [facility] Urine benzodiazepine levelOr dered By: Shabnam Paez on 11-08-2024 Benzodiazepines Ql (U) Negative < 200 ng/mL [facility] Urine cocaine levelOrdered B y: Shabnam Paez on 11-08-2024 Cocaine Ql (U) Negative < 300 ng/mL [facility] Urine lkree-[id number] abinol (THC) measurementOrdered By: Shabnam Paez on 11-08-2024 Cannabinoids Screen Ql (U) Positive < 50 ng/mL [facility] Comment on above: If confirmation test ing is needed, a separate order will be required to send out testing to the reference laboratory. Urine phencyclidine (PCP) de tectionOrdered By: Shabnam Paez on 11-08-2024 Phencyclidine Ql (U) Negative < 25 ng/mL [facility] Anion gap in Serum or Plasma Ordered By: Shabnam Paez on 11-07-2024 Anion gap [Moles/Vol] 11 mmol/L 5-15 [facility] BUN/creatinine ratioOrdered By: Shabnam Paez on 11-07-2024 Urea nitrogen/Creatinine [Mass ratio] 21.5 mg/mg High 10-20 [facility] Bilirubin, totalOrdered By: Shabnam Paez on 11-07-2024 Bilirubin [Mass/Vol] 0.27 mg/dL 0.00-1.30 [facility] CBC-Complete Blood Cnt No Di ffon 11-07-2024 Erythrocyte distribution width (RBC) [Ratio] 12.3 % Normal 11.6-14.6 [facility] Comment on above: Order Comment: 106.1 Performed By: #### L 3700.3000, L503.0106, L500.4050, L501.5200, L100.0100, L506.1001 #### [facility] Laboratory [address] [facility] [facility] [address]. [place], [place], [id number] ([phone] Hematocrit (Bld) [Volume fraction] 43.5 % Normal 40-54 [facility] Comment on above: Order Comment: 106.1 Performed By: #### L 3700.3000, L503.0106, L500.4050, L501.5200, L100.0100, L506.1001 #### [facility] [address] [place], [address] Hemoglobin (Bld) [Mass/Vol] 14.6 g/dL Normal 13.0-16.5 [facility] Comment on above: Order Comment: 106.1 Performed By: #### L 3700.3000, L503.0106, L500.4050, L501.5200, L100.0100, L506.1001 #### [facility] [address] [place], [address] MCH (RBC) [Entitic mass] 30.0 pg Normal 27.0-32.0 [facility] Comment on above: Order Comment: 106.1 Performed By: #### L 3700.3000, L503.0106, L500.4050, L501.5200, L100.0100, L506.1001 #### [facility] [address] [place], [address] MCHC (RBC) [Mass/Vol] 33.6 g/dL Normal 32-36 [facility] Comment on above: Order Comment: 106.1 Performed By: #### L 3700.3000, L503.0106, L500.4050, L501.5200, L100.0100, L506.1001 #### [facility] [address] [place], [address] MCV (RBC) [Entitic vol] 89.3 fL Normal 80-94 [facility] Comment on above: Order Comment: 106.1 Performed By: #### L 3700.3000, L503.0106, L500.4050, L501.5200, L100.0100, L506.1001 #### [facility] [address] [place], [address] Platelet mean volume (Bld) [Entitic vol] 10.8 fL Normal 6.2-12.0 [facility] Comment on above: Order Comment: 106.1 Performed By: #### L 3700.3000, L503.0106, L500.4050, L501.5200, L100.0100, L506.1001 #### [facility] [address] [place], [address] Platelets (Bld) [#/Vol] 227 10*3/uL Normal 150-450 [facility] Comment on above: Order Comment: 106.1 Performed By: #### L 3700.3000, L503.0106, L500.4050, L501.5200, L100.0100, L506.1001 #### [facility] [address] [place], [address] RBC (Bld) [#/Vol] 4.87 10*6/uL Normal 4.6-6.2 [facility] Comment on above: Order Comment: 106.1 Performed By: #### L 3700.3000, L503.0106, L500.4050, L501.5200, L100.0100, L506.1001 #### [facility] [address] [place], [address] RDW SD 40.0 fl Normal 35.1-43.9 [facility] Comment on above: Order Comment: 106.1 Performed By: #### L 3700.3000, L503.0106, L500.4050, L501.5200, L100.0100, L506.1001 #### [facility] [address] [place], [address] WBC (Bld) [#/Vol] 8.1 10*3/uL Normal 4.4-11.0 [facility] Comment on above: Order Comment: 106.1 Performed By: #### L 3700.3000, L503.0106, L500.4050, L501.5200, L100.0100, L506.1001 #### [facility] [address] [place], [address] Carbon dioxide, total [Moles /volume] in Central venous bloodOrdered By: Shabnam Paez on 11-07-2024 CO2 [Moles/Vol] 25.1 mmol/L 21.0-32.0 [facility] Chloride assayOrdered By: Esteban Paez on 11-07-2024 Chloride [Moles/Vol] 100 mmol/L 98-108 [facility] Comprehensive Metabolic Prof ilon 11-07-2024 Albumin [Mass/Vol] 4.1 g/dL Normal 3.5-5.0 [facility] Comment on above: Order Comment: 106.1 Performed By: #### L 3700.3000, L503.0106, L500.4050, L501.5200, L100.0100, L506.1001 #### [facility] [address] [place], [address] Albumin/Globulin [Mass ratio] 1.3 {ratio} Normal 0.9-2.4 [facility] Comment on above: Order Comment: 106.1 Performed By: #### L 3700.3000, L503.0106, L500.4050, L501.5200, L100.0100, L506.1001 #### [facility] [address] [place], [address] ALK PHOS 80 U/L Normal 40-129 [facility] Comment on above: Order Comment: 106.1 Performed By: #### L 3700.3000, L503.0106, L500.4050, L501.5200, L100.0100, L506.1001 #### [facility] [address] [place], [address] ALT [Catalytic activity/Vol] 86 U/L High <=46 [facility] Comment on above: Order Comment: 106.1 Performed By: #### L 3700.3000, L503.0106, L500.4050, L501.5200, L100.0100, L506.1001 #### [facility] [address] [place], [address] AST [Catalytic activity/Vol] 61 U/L High <=37 [facility] Comment on above: Order Comment: 106.1 Performed By: #### L 3700.3000, L503.0106, L500.4050, L501.5200, L100.0100, L506.1001 #### [facility] [address] [place], [address] Bilirubin [Mass/Vol] 0.27 mg/dL Normal 0.00-1.30 [facility] Comment on above: Order Comment: 106.1 Performed By: #### L 3700.3000, L503.0106, L500.4050, L501.5200, L100.0100, L506.1001 #### [facility] [address] [place], [address] BUN/CRE 21.5 RATIO High 10-20 [facility] Comment on above: Order Comment: 106.1 Performed By: #### L 3700.3000, L503.0106, L500.4050, L501.5200, L100.0100, L506.1001 #### [facility] [address] [place], [address] Calcium [Mass/Vol] 9.7 mg/dL Normal 7.6-11.0 [facility] Comment on above: Order Comment: 106.1 Performed By: #### L 3700.3000, L503.0106, L500.4050, L501.5200, L100.0100, L506.1001 #### [facility] [address] [place], [address] Chloride [Moles/Vol] 100 mmol/L Normal 98-108 [facility] Comment on above: Order Comment: 106.1 Performed By: #### L 3700.3000, L503.0106, L500.4050, L501.5200, L100.0100, L506.1001 #### [facility] [address] [place], [address] CO2 [Moles/Vol] 25.1 mmol/L Normal 21.0-32.0 [facility] Comment on above: Order Comment: 106.1 Performed By: #### L 3700.3000, L503.0106, L500.4050, L501.5200, L100.0100, L506.1001 #### [facility] [address] [place], [address] Creatinine [Mass/Vol] 0.84 mg/dL Normal 0.70-1.20 [facility] Comment on above: Order Comment: 106.1 Performed By: #### L 3700.3000, L503.0106, L500.4050, L501.5200, L100.0100, L506.1001 #### [facility] [address] [place], [address] GAP 11 Normal 5-15 [facility] Comment on above: Order Comment: 106.1 Performed By: #### L 3700.3000, L503.0106, L500.4050, L501.5200, L100.0100, L506.1001 #### [facility] [address] [place], [address] GFR/1.73 sq M.predicted among non-blacks MDRD (S/P/Bld) [Vol rate/Area] 120 mL/min/{1.73_m2} Normal >60 [facility] Comment on above: Order Comment: 106.1 Result Comment: mL/m in/1.73m2 CKD-EPI Creatinine Equation (2020) Performed By: #### L 3700.3000, L503.0106, L500.4050, L501.5200, L100.0100, L506.1001 #### [facility] [address] [place], [address] Globulin (S) [Mass/Vol] 3.3 g/dL Normal 2.2-4.2 [facility] Comment on above: Order Comment: 106.1 Performed By: #### L 3700.3000, L503.0106, L500.4050, L501.5200, L100.0100, L506.1001 #### [facility] [address] [place], [address] Glucose [Mass/Vol] 117 mg/dL High 70-99 [facility] Comment on above: Order Comment: 106.1 Performed By: #### L 3700.3000, L503.0106, L500.4050, L501.5200, L100.0100, L506.1001 #### [facility] [address] [place], [address] Potassium [Moles/Vol] 4.2 mmol/L Normal 3.3-5.1 [facility] Comment on above: Order Comment: 106.1 Performed By: #### L 3700.3000, L503.0106, L500.4050, L501.5200, L100.0100, L506.1001 #### [facility] [address] [place], [address] Sodium [Moles/Vol] 136 mmol/L Normal 133-145 [facility] Comment on above: Order Comment: 106.1 Performed By: #### L 3700.3000, L503.0106, L500.4050, L501.5200, L100.0100, L506.1001 #### [facility] [address] [place], [address] T PROT 7.4 g/dL Normal 5.9-8.4 [facility] Comment on above: Order Comment: 106.1 Performed By: #### L 3700.3000, L503.0106, L500.4050, L501.5200, L100.0100, L506.1001 #### [facility] [address] [place], [address] Urea nitrogen [Mass/Vol] 18 mg/dL Normal 4-19 [facility] Comment on above: Order Comment: 106.1 Performed By: #### L 3700.3000, L503.0106, L500.4050, L501.5200, L100.0100, L506.1001 #### [facility] [address] [place], [address] Erythrocyte distribution wid th ratioOrdered By: Shabnam Paez on 11-07-2024 Erythrocyte distribution width (RBC) [Ratio] 12.3 % 11.6-14.6 [facility] Erythrocyte distribution wid th standard deviationOrdered By: Shabnam Paez on 11-07-2024 Erythrocyte distribution width (RBC) [Ratio] 40.0 fl 35.1-43.9 [facility] Glomerular filtration rate ( GFR) estimation/1.73 sq m using serum, plasma, or whole bOrdered By: Shabnam Paez on 11-07-2024 GFR/1.73 sq M.predicted among non-blacks MDRD (S/P/Bld) [Vol rate/Area] 120 mL/min/{1.73_m2} >60 [facility] Comment on above: mL/min/1.73m2 CKD-EP I Creatinine Equation (2020) Hematocrit Auto (Bld) [Volum e fraction]Ordered By: Shabnam Paez on 11-07-2024 Hematocrit (Bld) [Volume fraction] 43.5 % 40-54 [facility] Hemoglobin measurementOrdere d By: Shabnam Paez on 11-07-2024 Hemoglobin (Bld) [Mass/Vol] 14.6 g/dL 13.0-16.5 [facility] Laboratory - Chemistry and C hemistry - challengeOrdered By: Shabnam Paez on 11-07-2024 AST [Catalytic activity/Vol] 61 U/L High <38 [facility] MCV (mean corpuscular volume ) determinationOrdered By: Shabnam Paez on 11-07-2024 MCV (RBC) [Entitic vol] 89.3 fL 80-94 [facility] Mean corpuscular hemoglobin (MCH) determinationOrdered By: Shabnam Paez on 11-07-2024 MCH (RBC) [Entitic mass] 30.0 pg 27.0-32.0 [facility] Mean corpuscular hemoglobin concentration (MCHC) determinationOrdered By: Shabnam Paez on 11-07-2024 MCHC (RBC) [Mass/Vol] 33.6 g/dL 32-36 [facility] Mean platelet volume determi nationOrdered By: Shabnam Paez on 11-07-2024 Platelet mean volume (Bld) [Entitic vol] 10.8 fL 6.2-12.0 [facility] Platelet countOrdered By: Esteban Paez on 11-07-2024 Platelets (Bld) [#/Vol] 227 10*3/uL 150-450 [facility] Potassium measurement (mass/ volume)Ordered By: Shabnam Paez on 11-07-2024 Potassium (Unsp spec) [Mass/Vol] 4.2 mmol/L 3.3-5.1 [facility] RBC Auto (Bld) [#/Vol]Ordere d By: Shabnam Paez on 11-07-2024 RBC (Bld) [#/Vol] 4.87 10*6/uL 4.6-6.2 [facility] Serum creatinine measurement (mass/volume)Ordered By: Shabnam Paez on 11-07-2024 Creatinine [Mass/Vol] 0.84 mg/dL 0.70-1.20 [facility] Serum globulin measurementOr dered By: Shabnam Paez on 11-07-2024 Globulin (S) [Mass/Vol] 3.3 g/dL 2.2-4.2 [facility] Serum glucose measurement (m ass/volume)Ordered By: Shabnam Paez on 11-07-2024 Glucose [Mass/Vol] 117 mg/dL High 70-99 [facility] Serum or plasma alanine robert otransferase (ALT) measurementOrdered By: Shabnam Paez on 11-07-2024 ALT [Catalytic activity/Vol] 86 U/L High <47 [facility] Serum or plasma albumin vanessa urement (mass/volume)Ordered By: Shabnam Paez on 11-07-2024 Albumin [Mass/Vol] 4.1 g/dL 3.5-5.0 [facility] Serum or plasma albumin/glob ulin mass ratioOrdered By: Shabnam Paez on 11-07-2024 Albumin/Globulin [Mass ratio] 1.3 {ratio} 0.9-2.4 [facility] Serum or plasma alkaline all sphatase measurementOrdered By: Shabnam Paez on 11-07-2024 ALP [Catalytic activity/Vol] 80 U/L 40-129 [facility] Serum or plasma calcium vanessa urement (mass/volume)Ordered By: Shabnam Paez on 11-07-2024 Calcium [Mass/Vol] 9.7 mg/dL 7.6-11.0 [facility] Serum or plasma urea nitroge n measurement (mass/volume)Ordered By: Shabnam Paez on 11-07-2024 Urea nitrogen [Mass/Vol] 18 mg/dL 4-19 [facility] Sodium levelOrdered By: Corie Paez on 11-07-2024 Sodium [Moles/Vol] 136 mmol/L 133-145 [facility] Total proteinOrdered By: Cuauhtemoc Paez on 11-07-2024 Protein [Mass/Vol] 7.4 g/dL 5.9-8.4 [facility] White blood cell (WBC) count Ordered By: Shabnam Paez on 11-07-2024 WBC (Bld) [#/Vol] 8.1 10*3/uL 4.4-11.0 [facility] CBC panel Auto (Bld)on 11-03 Erythrocyte distribution width (RBC) [Ratio] 12.2 % 11.5 - 14.5 % [facility] Hematocrit (Bld) [Volume fraction] 42.7 % 41.0 - 52.0 % [facility] Hemoglobin (Bld) [Mass/Vol] 13.6 g/dL 13.5 - 17.5 g/dL [facility] Interpretation and review of laboratory results Abnormal [facility] MCH (RBC) [Entitic mass] 30 pg 26.0 - 34.0 pg [facility] MCHC (RBC) [Mass/Vol] 31.9 g/dL Low 32.0 - 36.0 g/dL [facility] MCV (RBC) [Entitic vol] 94 fL 80 - 100 fL [facility] Nucleated RBC/100 WBC (Bld) [Ratio] 0 % [facility] Platelets (Bld) [#/Vol] 174 10*3/uL [facility] RBC (Bld) [#/Vol] 4.54 10*6/uL [facility] WBC (Bld) [#/Vol] 8 10*3/uL [facility] Erythrocyte distribution width (RBC) [Ratio] 12.2 % Normal 11.5-14.5 [facility] Comment on above: Performed By: #### 5 8410-2 ####MIRANDA Sims ([id number])[facility] ([facility])[address] [place] [address] Hematocrit (Bld) [Volume fraction] 42.7 % Normal 41.0-52.0 [facility] Comment on above: Performed By: #### 5 8410-2 ####MIRANDA Sims ([id number])[facility] ([facility])[address] [place] [address] Hemoglobin (Bld) [Mass/Vol] 13.6 g/dL Normal 13.5-17.5 [facility] Comment on above: Performed By: #### 5 8410-2 ####MIRANDA Sims ([id number])[facility] ([facility])[address] [place] [address] MCH (RBC) [Entitic mass] 30.0 pg Normal 26.0-34.0 [facility] Comment on above: Performed By: #### 5 8410-2 ####MIRANDA Sims ([id number])[facility] ([facility])[address] [place] [address] MCHC (RBC) [Mass/Vol] 31.9 g/dL Low 32.0-36.0 [facility] Comment on above: Performed By: #### 5 8410-2 ####MIRANDA Sims ([id number])[facility] ([facility])[address] [place] [address] MCV (RBC) [Entitic vol] 94 fL Normal 80-100 [facility] Comment on above: Performed By: #### 5 8410-2 ####MIRANDA Sims ([id number])[facility] ([facility])[address] [place] [address] Nucleated RBC/100 WBC (Bld) [Ratio] 0.0 /100 WBCs Normal 0.0-0.0 [facility] Comment on above: Performed By: #### 5 8410-2 ####MIRANDA Sims ([id number])[facility] ([facility])[address] [place] [address] Platelets (Bld) [#/Vol] 174 x10*3/uL Normal 150-450 [facility] Comment on above: Performed By: #### 5 8410-2 ####MIRANDA Sims ([id number])[facility] ([facility])[address] [place] [address] RBC (Bld) [#/Vol] 4.54 x10*6/uL Normal 4.50-5.90 [facility] Comment on above: Performed By: #### 5 8410-2 ####MIRANDA Sims ([id number])[facility] ([facility])[address] [place] [address] WBC (Bld) [#/Vol] 8.0 x10*3/uL Normal 4.4-11.3 [facility] Comment on above: Performed By: #### 5 8410-2 ####MIRANDA Sims ([id number])[facility] ([facility])[address] [place] [address] CBC panel Auto (Bld)on 11-02 Erythrocyte distribution width (RBC) [Ratio] 12.1 % 11.5 - 14.5 % [facility] Hematocrit (Bld) [Volume fraction] 41.3 % 41.0 - 52.0 % [facility] Hemoglobin (Bld) [Mass/Vol] 13.6 g/dL 13.5 - 17.5 g/dL [facility] Interpretation and review of laboratory results Abnormal [facility] MCH (RBC) [Entitic mass] 29.8 pg 26.0 - 34.0 pg [facility] MCHC (RBC) [Mass/Vol] 32.9 g/dL 32.0 - 36.0 g/dL [facility] MCV (RBC) [Entitic vol] 90 fL 80 - 100 fL [facility] Nucleated RBC/100 WBC (Bld) [Ratio] 0 % [facility] Platelets (Bld) [#/Vol] 209 10*3/uL [facility] RBC (Bld) [#/Vol] 4.57 10*6/uL [facility] WBC (Bld) [#/Vol] 13.9 10*3/uL High [facility] Erythrocyte distribution width (RBC) [Ratio] 12.1 % Normal 11.5-14.5 [facility] Comment on above: Performed By: #### 5 8410-2 ####MIRANDA Sims ([id number])[facility] ([facility])[address] [place] [address] Hematocrit (Bld) [Volume fraction] 41.3 % Normal 41.0-52.0 [facility] Comment on above: Performed By: #### 5 8410-2 ####MIRANDA Sims ([id number])[facility] ([facility])[address] [place] [address] Hemoglobin (Bld) [Mass/Vol] 13.6 g/dL Normal 13.5-17.5 [facility] Comment on above: Performed By: #### 5 8410-2 ####MIRANDA Sims ([id number])[facility] ([facility])[address] [place] [address] MCH (RBC) [Entitic mass] 29.8 pg Normal 26.0-34.0 [facility] Comment on above: Performed By: #### 5 8410-2 ####MIRANDA Sims ([id number])[facility] ([facility])[address] [place] [address] MCHC (RBC) [Mass/Vol] 32.9 g/dL Normal 32.0-36.0 [facility] Comment on above: Performed By: #### 5 8410-2 ####MIRANDA Sims ([id number])[facility] ([facility])[address] [place] [address] MCV (RBC) [Entitic vol] 90 fL Normal 80-100 [facility] Comment on above: Performed By: #### 5 8410-2 ####MIRANDA Sims ([id number])[facility] ([facility])[address] [place] [address] Nucleated RBC/100 WBC (Bld) [Ratio] 0.0 /100 WBCs Normal 0.0-0.0 [facility] Comment on above: Performed By: #### 5 8410-2 ####MIRANDA Sims ([id number])[facility] ([facility])[address] [place] [address] Platelets (Bld) [#/Vol] 209 x10*3/uL Normal 150-450 [facility] Comment on above: Performed By: #### 5 8410-2 ####MIRANDA Sims ([id number])[facility] ([facility])[address] [place] [address] RBC (Bld) [#/Vol] 4.57 x10*6/uL Normal 4.50-5.90 [facility] Comment on above: Performed By: #### 5 8410-2 ####MIRANDA Sims ([id number])[facility] ([facility])[address] [place] [address] WBC (Bld) [#/Vol] 13.9 x10*3/uL High 4.4-11.3 [facility] Comment on above: Performed By: #### 5 8410-2 ####MIRANDA Sims ([id number])[facility] ([facility])[address] [place] [address] Renal function 2000 panelon 11-02-2024 Albumin BCP dye [Mass/Vol] 3.9 g/dL 3.4 - 5.0 g/dL [facility] Anion gap [Moles/Vol] 14 mmol/L 10 - 20 mmol/L [facility] Calcium [Mass/Vol] 8.9 mg/dL 8.6 - 10. 6 mg/dL [facility] Chloride [Moles/Vol] 100 mmol/L 98 - 10 7 mmol/L [facility] CO2 [Moles/Vol] 28 mmol/L 21 - 32 mmol/L [facility] Creatinine [Mass/Vol] 1.02 mg/dL 0.50 - 1.30 mg/dL [facility] eGFR - PINF [facility] Comment on above: Calculations of davey mated GFR are performed using the 2020 CKD-EPI Study Refit equation without the race variable for the IDMS-Traceable creatinine methods. https://jasn.asnjournals.org/content/early//ASN.2020 021678 Glucose [Mass/Vol] 170 mg/dL High 74 - 99 mg/dL [facility] Interpretation and review of laboratory results Abnormal [facility] Phosphate [Mass/Vol] 3.3 mg/dL 2.5 - 4 .9 mg/dL [facility] Potassium [Moles/Vol] 4.2 mmol/L 3.5 - 5.3 mmol/L [facility] Sodium [Moles/Vol] 138 mmol/L 136 - 145 mmol/L [facility] Urea nitrogen [Mass/Vol] 14 mg/dL 6 - 23 mg/dL [facility] Albumin BCP dye [Mass/Vol] 3.9 g/dL Normal 3.4-5.0 [facility] Comment on above: Performed By: #### 2 4362-6 ####MIRANDA Sims ([id number])[facility] ([facility])[address] [place] [address] Anion gap [Moles/Vol] 14 mmol/L Normal 10-20 [facility] Comment on above: Performed By: #### 2 4362-6 ####MIRANDA Sims ([id number])[facility] ([facility])[address] [place] [address] Calcium [Mass/Vol] 8.9 mg/dL Normal 8.6-10.6 [facility] Comment on above: Performed By: #### 2 4362-6 ####MIRANDA Sims ([id number])[facility] ([facility])[address] [place] [address] Chloride [Moles/Vol] 100 mmol/L Normal 98-107 [facility] Comment on above: Performed By: #### 2 4362-6 ####MIRANDA Sims ([id number])[facility] ([facility])[address] [place] [address] CO2 [Moles/Vol] 28 mmol/L Normal 21-32 [facility] Comment on above: Performed By: #### 2 4362-6 ####MIRANDA Sims ([id number])[facility] ([facility])[address] [place] [address] Creatinine [Mass/Vol] 1.02 mg/dL Normal 0.50-1.30 [facility] Comment on above: Performed By: #### 2 4362-6 ####MIRANDA Sims ([id number])[facility] ([facility])[address] [place] [address] GFR/1.73 sq M.predicted MDRD (S/P/Bld) [Vol rate/Area] mL/min/{1.73_m2} Normal >60 [facility] Comment on above: Result Comment: Calc ulations of estimated GFR are performed using the 2020 CKD-EPI Study Refit equation without the race variable for the IDMS-Traceable creatinine methods. https://jasn.asnjournals.org/content/early//ASN.2020 113756 Performed By: #### 2 4362-6 ####MIRANDA Sims ([id number])[facility] ([facility])[address] [place] [address] Glucose [Mass/Vol] 170 mg/dL High 74-99 [facility] Comment on above: Performed By: #### 2 4362-6 ####MIRANDA Sims ([id number])[facility] ([facility])[address] [place] [address] Phosphate [Mass/Vol] 3.3 mg/dL Normal 2.5-4.9 [facility] Comment on above: Performed By: #### 2 4362-6 ####MIRANDA Sims ([id number])[facility] ([facility])[address] [place] [address] Potassium [Moles/Vol] 4.2 mmol/L Normal 3.5-5.3 [facility] Comment on above: Performed By: #### 2 4362-6 ####MIRANDA Sims ([id number])[facility] ([facility])[address] [place] [address] Sodium [Moles/Vol] 138 mmol/L Normal 136-145 [facility] [place] Comment on above: Performed By: #### 2 4362-6 ####MIRANDA Sims ([id number])[facility] ([facility])[address] [place] [address] Urea nitrogen [Mass/Vol] 14 mg/dL Normal 6-23 [facility] Comment on above: Performed By: #### 2 4362-6 ####MIRANDA Sims ([id number])[facility] ([facility])[address] [place] [address] TSH WITH REFLEX TO FREE T4 I F ABNORMALon 11-02-2024 TSH Qn 1.52 m[IU]/L Normal 0.44-3.98 [facility] Comment on above: Order Comment: TSH t esting is performed using different testing methodology at [facility] than at other [facility]. Direct result comparisons should only be made within the same method. Performed By: #### T HYDS ####MIRANDA Sims ([id number])[facility] ([facility])[address] [place] [address] TSH with reflex to Free T4 i f abnormalon 11-02-2024 Interpretation and review of laboratory results Normal [facility] TSH Qn 1.52 m[IU]/L [facility] TSH testing is performed using different testing methodology at [facility] than at other [facility]. Direct result comparisons should only be made within the same method. [facility] Blood type and Indirect anti body screen panel (Bld)on 11-01-2024 ABO group Nom (Bld) A [facility] Blood group antibody screen Ql Negative [facility] D Ag Ql (Bld) Positive [facility] CBC panel Auto (Bld)on 11-01 Erythrocyte distribution width (RBC) [Ratio] 12.3 % 11.5 - 14.5 % [facility] Hematocrit (Bld) [Volume fraction] 45.5 % 41.0 - 52.0 % [facility] Hemoglobin (Bld) [Mass/Vol] 15.2 g/dL 13.5 - 17.5 g/dL [facility] Interpretation and review of laboratory results Normal [facility] MCH (RBC) [Entitic mass] 30.4 pg 26.0 - 34.0 pg [facility] MCHC (RBC) [Mass/Vol] 33.4 g/dL 32.0 - 36.0 g/dL [facility] MCV (RBC) [Entitic vol] 91 fL 80 - 100 fL [facility] Nucleated RBC/100 WBC (Bld) [Ratio] 0 % [facility] Platelets (Bld) [#/Vol] 204 10*3/uL [facility] RBC (Bld) [#/Vol] 5 10*6/uL [facility] WBC (Bld) [#/Vol] 10.2 10*3/uL [facility] Erythrocyte distribution width (RBC) [Ratio] 12.3 % Normal 11.5-14.5 [facility] Comment on above: Performed By: #### 5 8410-2 ####MIRANDA Sims ([id number])[facility] ([facility])[address] [place] [address] Hematocrit (Bld) [Volume fraction] 45.5 % Normal 41.0-52.0 [facility] Comment on above: Performed By: #### 5 8410-2 ####MIRANDA Sims ([id number])[facility] ([facility])[address] [place] [address] Hemoglobin (Bld) [Mass/Vol] 15.2 g/dL Normal 13.5-17.5 [facility] Comment on above: Performed By: #### 5 8410-2 ####MIRANDA Sims ([id number])[facility] ([facility])[address] [place] [address] MCH (RBC) [Entitic mass] 30.4 pg Normal 26.0-34.0 [facility] Comment on above: Performed By: #### 5 8410-2 ####MIRANDA Sims ([id number])[facility] ([facility])[address] [place] [address] MCHC (RBC) [Mass/Vol] 33.4 g/dL Normal 32.0-36.0 [facility] Comment on above: Performed By: #### 5 8410-2 ####MIRANDA Sims ([id number])[facility] ([facility])[address] [place] [address] MCV (RBC) [Entitic vol] 91 fL Normal 80-100 [facility] Comment on above: Performed By: #### 5 8410-2 ####MIRANDA Sims ([id number])[facility] ([facility])[address] [place] [address] Nucleated RBC/100 WBC (Bld) [Ratio] 0.0 /100 WBCs Normal 0.0-0.0 [facility] Comment on above: Performed By: #### 5 8410-2 ####MIRANDA Sims ([id number])[facility] ([facility])[address] [place] [address] Platelets (Bld) [#/Vol] 204 x10*3/uL Normal 150-450 [facility] Comment on above: Performed By: #### 5 8410-2 ####MIRANDA STEVEMOTZER L ([id number])[facility] ([facility])[address] [place] [address] RBC (Bld) [#/Vol] 5.00 x10*6/uL Normal 4.50-5.90 [facility] Comment on above: Performed By: #### 5 8410-2 ####MIRANDA SCHMOTZER L ([id number])[facility] ([facility])[address] [place] [address] WBC (Bld) [#/Vol] 10.2 x10*3/uL Normal 4.4-11.3 [facility] Comment on above: Performed By: #### 5 8410-2 ####MIRANDA STEVEMOTZER L ([id number])[facility] ([facility])[address] [place] [address] CT Cervical spine WO contras ton 11-01-2024 1. No acute fracture or traumatic malalignment of the cervical spine. I personally reviewed the images/study and resident's interpretation and I agree with the findings as stated by Anisa Mena MD (resident radiologist). This study was analyzed and interpreted at [place], [place]. MACRO: None. Signed by: Julián Mendez 11/01/2024 1:04 AM Dictation workstation: [id number] [facility] Interpreted By: Julián Mendez and Hofer Lindsay STUDY: CT CERVICAL SPINE WO IV CONTRAST; 11/01/2024 12:31 am INDICATION: Signs/Symptoms:fall/ seizure. COMPARISON: None. ACCESSION NUMBER(S): [id number] ORDERING CLINICIAN: EDNA CHOUDHARY TECHNIQUE: Axial noncontrast [...] WO IV CONTRAST; 11/01/2024 12:31 am INDICATION: Signs/Symptoms:fall/ seizure. COMPARISON: None. ACCESSION NUMBER(S): [id number] ORDERING CLINICIAN: EDNA CHOUDHARY TECHNIQUE: Axial noncontrast [...] This study was analyzed and interpreted at [place], [place]. MACRO: None. Signed by: Julián Mendez 11/01/2024 1:04 AM Dictation workstation: [id number] [facility] Work Phone: [facility] Work Phone: Creatine Kinaseon 11-01-2024 CK [Catalytic activity/Vol] 56 U/L 0 - 325 U/L [facility] Creatine kinaseon 11-01-2024 CK [Catalytic activity/Vol] 56 U/L Normal 0-325 [facility] Comment on above: Performed By: #### 2 157-6 ####MIRANDA Sims ([id number])[facility] ([facility])[address] [place] [address] DRUG SCREEN,URINEon 11-02-19 25 Amphetamines Screen Ql (U) Negative Presumptive Negative [facility] Comment on above: CUTOFF LEVEL: 500 NG /ML Cross-reactivity has been reported with high concentrations of the following drugs: buproprion, chloroquine, chlorpromazine, ephedrine, mephentermine, fenfluramine, phentermine, phenylpropanolamine, pseudoephedrine, and propranolol. Barbiturates Screen Ql (U) Negative Presumptive Negative [facility] Comment on above: CUTOFF LEVEL: 200 NG /ML Benzodiazepines Ql (U) Negative Presu mptive Negative [facility] Comment on above: CUTOFF LEVEL: 200 NG /ML Benzoylecgonine Screen Ql (U) Positive Abnormal Presumptive Negative [facility] Comment on above: CUTOFF LEVEL: 150 NG /ML Cannabinoids Screen Ql (U) Positive Abnormal Presumptive Negative [facility] Comment on above: CUTOFF LEVEL: 50 NG/ ML fentaNYL+Norfentanyl Screen Ql (U) Negative Presumptive Negative [facility] Comment on above: CUTOFF LEVEL: 5 NG/M L Interpretation and review of laboratory results Abnormal [facility] Methadone Screen Ql (U) Negative Pres umptive Negative [facility] Comment on above: CUTOFF LEVEL: 150 NG /ML The metabolite J-zuqyb-evnxhynygcunon (LAAM) is not detected by this method in concentrations that would be found in the urine of patients on LAAM therapy. Opiates Screen Ql (U) Negative Presum ptive Negative [facility] Comment on above: CUTOFF LEVEL: 300 NG /ML The opiate screen does not detect fentanyl, meperidine, or tramadol. Oxycodone is not consistently detected (refer to Oxycodone Screen, Urine result). oxyCODONE+oxyMORphone Screen Ql (U) Negative Presumptive Negative [facility] Comment on above: CUTOFF LEVEL: 100 NG /ML This test will accurately detect both oxycodone and oxymorphone. Phencyclidine Ql (U) Negative Presump tive Negative [facility] Comment on above: CUTOFF LEVEL: 25 NG/ ML Cross-reactivity has been reported with dextromethorphan. Drug screen results are presumptive and should not be used to assess compliance with prescribed medication. Contact the performing [facility] laboratory to add-on definitive confirmatory [...] be directed to the laboratory medical directors. [facility] Amphetamines Screen Ql (U) Negative Normal Presumptive Negative [facility] Comment on above: Order Comment: Drug screen results are presumptive and should not be used to assesscompliance with prescribed medication. Contact the performing [facility] laboratoryto add-on definitive confirmatory testing [...] pseudoephedrine, and propranolol. Performed By: #### D RUGSocorro ####MIRANDA Sims ([id number])[facility] ([facility])[address] [place] [address] Barbiturates Screen Ql (U) Negative Normal Presumptive Negative [facility] Comment on above: Order Comment: Drug screen results are presumptive and should not be used to assesscompliance with prescribed medication. Contact the performing [facility] laboratoryto add-on definitive confirmatory testing [...] NG/ML Performed By: #### D RUG3 ####MIRANDA CARDTZER Bethany ([id number])[facility] ([facility])[address] [place] [address] Benzodiazepines Ql (U) Negative Normal Presu mptive Negative [facility] Comment on above: Order Comment: Drug screen results are presumptive and should not be used to assesscompliance with prescribed medication. Contact the performing [facility] laboratoryto add-on definitive confirmatory testing [...] By: #### D RUG3 ####MIRANDA GONZALEZ L ([id number])[facility] ([facility])[address] [place] [address] Benzoylecgonine Screen Ql (U) Positive Abnormal Presumptive Negative [facility] Comment on above: Order Comment: Drug screen results are presumptive and should not be used to assesscompliance with prescribed medication. Contact the performing [facility] laboratoryto add-on definitive confirmatory testing [...] Performed By: #### D RUG3 ####MIRANDA Sims ([id number])[facility] ([facility])[address] [place] [address] Cannabinoids Screen Ql (U) Positive Abnormal Presumptive Negative [facility] Comment on above: Order Comment: Drug screen results are presumptive and should not be used to assesscompliance with prescribed medication. Contact the performing [facility] laboratoryto add-on definitive confirmatory testing [...] By: #### D RUG3 ####MIRANDA GONZALEZ L ([id number])[facility] ([facility])[address] [place], [place] [id number] fentaNYL+Norfentanyl Screen Ql (U) Negative Normal Presumptive Negative [facility] Comment on above: Order Comment: Drug screen results are presumptive and should not be used to assesscompliance with prescribed medication. Contact the performing [facility] laboratoryto add-on definitive confirmatory testing [...] Performed By: #### D RUG3 ####MIRANDA Sims ([id number])[facility] ([facility])[address] [place] [address] Methadone Screen Ql (U) Negative Normal Pres umptive Negative [facility] Comment on above: Order Comment: Drug screen results are presumptive and should not be used to assesscompliance with prescribed medication. Contact the performing [facility] laboratoryto add-on definitive confirmatory testing [...] CUTO FF LEVEL: 150 NG/ML The metabolite P-txuie-mkiymemnxgfcat (LAAM) is not detected by this method in concentrations that would be found in the urine of patients on LAAM therapy. Performed By: #### D RUG3 ####MIRANDA Sims ([id number])[facility] ([facility])[address] [place], [place] [id number] Opiates Screen Ql (U) Negative Normal Presum ptive Negative [facility] Comment on above: Order Comment: Drug screen results are presumptive and should not be used to assesscompliance with prescribed medication. Contact the performing [facility] laboratoryto add-on definitive confirmatory testing [...] Performed By: #### D RUG3 ####MIRANDA Sims ([id number])[facility] ([facility])[address] [place] [id number] oxyCODONE+oxyMORphone Screen Ql (U) Negative Normal Presumptive Negative [facility] Comment on above: Order Comment: Drug screen results are presumptive and should not be used to assesscompliance with prescribed medication. Contact the performing [facility] laboratoryto add-on definitive confirmatory testing [...] Performed By: #### D RUG3 ####MIRANDA Sims ([id number])[facility] ([facility])[address] [place] [address] Phencyclidine Ql (U) Negative Normal Presump tive Negative [facility] Comment on above: Order Comment: Drug screen results are presumptive and should not be used to assesscompliance with prescribed medication. Contact the performing [facility] laboratoryto add-on definitive confirmatory testing [...] Performed By: #### D RUG3 ####MIRANDA Sims ([id number])[facility] ([facility])[address] [place] [address] [place] FLUORO IMAGES NO CHARGEon 11-01-2024 [place] FLUORO IMAGES NO CHARGE These images are not reportable by radiology and will not be interpreted by Radiologists. Normal [facility] Lactateon 11-01-2024 Lactate [Moles/Vol] 1.2 mmol/L 0.4 - 2. 0 mmol/L [facility] Lactate [Moles/Vol] 1.2 mmol/L Normal 0.4-2.0 [facility] Comment on above: Order Comment: Venip uncture immediately after or during the administration of Metamizole may lead to falsely low results. Testing should be performed immediately prior to Metamizole dosing. Performed By: #### 2 524-7 ####MIRANDA Sims ([id number])[facility] ([facility])[address] [place] [address] Lactate [Moles/Vol]on 2024 Venipuncture immediately after or during the administration of Metamizole may lead to falsely low results. Testing should be performed immediately prior to Metamizole dosing. [facility] No Panel Informationon 11-01 Interpretation and review of laboratory results Normal [facility] CT CHEST/ABDOMEN/PELVIS : *No acute traumatic injury. CT THORACIC AND LUMBAR SPINE: *No acute fracture or traumatic malalignment. I personally reviewed the images/study and I agree with the findings as stated by resident Horacio Loera. This study was interpreted at [place], [place]. MACRO: None. Signed by: Julián Mendez 11/01/2024 1:14 AM Dictation workstation: [id number] [facility] Interpreted By: VanessaJulián minaya and Ritchie Brandon STUDY: CT CHEST ABDOMEN PELVIS W IV CONTRAST; CT THORACIC SPINE RETROSPECTIVE RECONSTRUCTION PROTOCOL; CT LUMBAR SPINE RETROSPECTIVE RECONSTRUCTION PROTOCOL; 11/01/2024 12:31 am INDICATION: Signs/Symptoms:fall/ seizure. COMPARISON: Radiograph of the chest 10/31/2024. ACCESSION NUMBER(S): [id number]; [id number]; [id number] ORDERING CLINICIAN: EDNA CHOUDHARY TECHNIQUE: Contiguous axial [...] abnormality. VESSELS: No acute vascular injury. LYMPH NODES/RETROPERITONEU M: No acute retroperitoneal abnormality. No enlarged lymph nodes. BOWEL/MESENTERY/AZAM TONEUM: No bowel wall thickening or dilatation. Normal appendix. No ascites, free air or fluid collection. MUSCULOSKELETAL: Mild amount of degenerative/sclerot ic changes involving the sacroiliac joints. No evidence [...] No significant neural foraminal stenosis. [facility] Juláin Mendez MD - 11/01/2024 Interpreted By: Julián Mendez and Ritchie Brandon STUDY: CT CHEST ABDOMEN PELVIS W IV CONTRAST; CT THORACIC SPINE RETROSPECTIVE RECONSTRUCTION PROTOCOL; CT LUMBAR SPINE RETROSPECTIVE RECONSTRUCTION PROTOCOL; 11/01/2024 12:31 am INDICATION: Signs/Symptoms:fall/ seizure. COMPARISON: Radiograph of the chest 10/31/2024. ACCESSION NUMBER(S): [id number]; [id number]; [id number] ORDERING CLINICIAN: EDNA CHOUDHARY TECHNIQUE: Contiguous axial [...] abnormality. VESSELS: No acute vascular injury. LYMPH NODES/RETROPERITONEU M: No acute retroperitoneal abnormality. No enlarged lymph nodes. BOWEL/MESENTERY/AZAM TONEUM: No bowel wall thickening or dilatation. Normal appendix. No ascites, free air or fluid collection. MUSCULOSKELETAL: Mild amount of degenerative/sclerot ic changes involving the sacroiliac joints. No evidence [...] No significant neural foraminal stenosis. IMPRESSION: CT CHEST/ABDOMEN/PELVIS : *No acute traumatic injury. CT THORACIC AND LUMBAR SPINE: *No acute fracture or traumatic malalignment. I personally reviewed the images/study and I agree with the findings as stated by resident Horacio Loera. This study was interpreted at [place], [place]. MACRO: None. Signed by: Julián Mendez 11/01/2024 1:14 AM Dictation workstation: [id number] [facility] Work Phone: [facility] Work Phone: Radiology Study observation (narrative) [facility] Work Phone: Renal function 2000 panelon 11-01-2024 Albumin BCP dye [Mass/Vol] 4.4 g/dL 3.4 - 5.0 g/dL [facility] Anion gap [Moles/Vol] 12 mmol/L 10 - 20 mmol/L [facility] Calcium [Mass/Vol] 9.2 mg/dL 8.6 - 10. 6 mg/dL [facility] Chloride [Moles/Vol] 102 mmol/L 98 - 10 7 mmol/L [facility] CO2 [Moles/Vol] 28 mmol/L 21 - 32 mmol/L [facility] Creatinine [Mass/Vol] 0.9 mg/dL 0.50 - 1.30 mg/dL [facility] eGFR - PINF [facility] Comment on above: Calculations of davey mated GFR are performed using the 2020 CKD-EPI Study Refit equation without the race variable for the IDMS-Traceable creatinine methods. https://jasn.asnjournals.org/content/early/ASN.2020 923976 Glucose [Mass/Vol] 102 mg/dL High 74 - 99 mg/dL [facility] Interpretation and review of laboratory results Abnormal [facility] Phosphate [Mass/Vol] 3.5 mg/dL 2.5 - 4 .9 mg/dL [facility] Potassium [Moles/Vol] 4.5 mmol/L 3.5 - 5.3 mmol/L [facility] Sodium [Moles/Vol] 137 mmol/L 136 - 145 mmol/L [facility] Urea nitrogen [Mass/Vol] 13 mg/dL 6 - 23 mg/dL [facility] Albumin BCP dye [Mass/Vol] 4.4 g/dL Normal 3.4-5.0 [facility] Comment on above: Performed By: #### 2 4362-6 ####MIRANDA Sism ([id number])[facility] ([facility])[address] [place] [address] Anion gap [Moles/Vol] 12 mmol/L Normal 10-20 [facility] Comment on above: Performed By: #### 2 4362-6 ####MIRANDA Sims ([id number])[facility] ([facility])[address] [place] [address] Calcium [Mass/Vol] 9.2 mg/dL Normal 8.6-10.6 [facility] [place] Comment on above: Performed By: #### 2 4362-6 ####MIRANDA Sims ([id number])[facility] ([facility])[address] [place] [address] Chloride [Moles/Vol] 102 mmol/L Normal 98-107 [facility] Comment on above: Performed By: #### 2 4362-6 ####MIRANDA Sims ([id number])[facility] ([facility])[address] [place] [address] CO2 [Moles/Vol] 28 mmol/L Normal 21-32 [facility] Comment on above: Performed By: #### 2 4362-6 ####MIRANDA Sims ([id number])[facility] ([facility])[address] [place] [address] Creatinine [Mass/Vol] 0.90 mg/dL Normal 0.50-1.30 [facility] Comment on above: Performed By: #### 2 4362-6 ####MIRANDA Sims ([id number])[facility] ([facility])[address] [place] [address] GFR/1.73 sq M.predicted MDRD (S/P/Bld) [Vol rate/Area] mL/min/{1.73_m2} Normal >60 [facility] Comment on above: Result Comment: Calc ulations of estimated GFR are performed using the 2020 CKD-EPI Study Refit equation without the race variable for the IDMS-Traceable creatinine methods. https://jasn.asnjournals.org/content/early//ASN.2020 341975 Performed By: #### 2 4362-6 ####MIRANDA Sims ([id number])[facility] ([facility])[address] [place] [address] Glucose [Mass/Vol] 102 mg/dL High 74-99 [facility] [place] Comment on above: Performed By: #### 2 4362-6 ####MIRANDA Sims ([id number])[facility] ([facility])[address] [place] [address] Phosphate [Mass/Vol] 3.5 mg/dL Normal 2.5-4.9 [facility] Comment on above: Performed By: #### 2 436-6 ####MIRANDA Sims ([id number])[facility] ([facility])[address] [place] [address] Potassium [Moles/Vol] 4.5 mmol/L Normal 3.5-5.3 [facility] Comment on above: Performed By: #### 2 436-6 ####MIRANDA Sims ([id number])[facility] ([facility])[address] [place] [address] Sodium [Moles/Vol] 137 mmol/L Normal 136-145 [facility] [place] Comment on above: Performed By: #### 2 436-6 ####MIRANDA Sims ([id number])[facility] ([facility])[address] [place] [address] Urea nitrogen [Mass/Vol] 13 mg/dL Normal 6-23 [facility] Comment on above: Performed By: #### 2 436-6 ####MIRANDA Sims ([id number])[facility] ([facility])[address] [place] [address] XR tomography Unspecified vanessa dy regionon 11-01-2024 These images are not reportable by radiology and will not be interpreted by Radiologists. IMAGING Blood type and Indirect anti body screen panel (Bld)on 10-31-2024 ABO group Nom (Bld) A Normal [facility] Comment on above: Performed By: #### 3 4532-2 ####MIRANDA Sims ([id number])[facility] ([facility])[address] [place] [address] Blood group antibody screen Ql Negative [facility] Comment on above: Performed By: #### 3 453-2 ####MIRANDA Sims ([id number])[facility] ([facility])[address] [place] [address] D Ag Ql (Bld) Positive [facility] Comment on above: Performed By: #### 3 453-2 ####MIRANDA Sims ([id number])[facility] ([facility])[address] [place] [address] CBC W Auto Differential pane l (Bld)on 10-31-2024 Basophils (Bld) [#/Vol] 0.07 10*3/uL [facility] Basophils/100 WBC (Bld) 0.5 % 0.0 - 2.0 % [facility] Eosinophils (Bld) [#/Vol] 0.09 10*3/uL [facility] Eosinophils/100 WBC (Bld) 0.7 % 0.0 - 6.0 % [facility] Erythrocyte distribution width (RBC) [Ratio] 12 % 11.5 - 14.5 % [facility] Hematocrit (Bld) [Volume fraction] 45.9 % 41.0 - 52.0 % [facility] Hemoglobin (Bld) [Mass/Vol] 16.3 g/dL 13.5 - 17.5 g/dL [facility] Immature granulocytes (Bld) [#/Vol] 0.09 10*3/uL [facility] Immature granulocytes/100 WBC (Bld) 0.7 % 0.0 - 0.9 % [facility] Comment on above: Immature Granulocyte Count (IG) includes promyelocytes, myelocytes and metamyelocytes but does not include bands. Percent differential counts (%) should be interpreted in the context of the absolute cell counts (cells/UL). Interpretation and review of laboratory results Abnormal [facility] Lymphocytes (Bld) [#/Vol] 2.28 10*3/uL [facility] Lymphocytes/100 WBC (Bld) 16.5 % 13.0 - 44.0 % [facility] MCH (RBC) [Entitic mass] 30.2 pg 26.0 - 34.0 pg [facility] MCHC (RBC) [Mass/Vol] 35.5 g/dL 32.0 - 36.0 g/dL [facility] MCV (RBC) [Entitic vol] 85 fL 80 - 100 fL [facility] Monocytes (Bld) [#/Vol] 0.96 10*3/uL [facility] Monocytes/100 WBC (Bld) 7 % 2.0 - 10.0 % [facility] Neutrophils (Bld) [#/Vol] 10.32 10*3/uL [facility] Comment on above: Percent differential counts (%) should be interpreted in the context of the absolute cell counts (cells/uL). Neutrophils/100 WBC (Bld) 74.6 % 40.0 - 80.0 % [facility] Nucleated RBC/100 WBC (Bld) [Ratio] 0 % [facility] Platelets (Bld) [#/Vol] 230 10*3/uL [facility] RBC (Bld) [#/Vol] 5.4 10*6/uL [facility] WBC (Bld) [#/Vol] 13.8 10*3/uL [facility] Basophils (Bld) [#/Vol] 0.07 x10*3/uL Normal 0.00-0.10 [facility] Comment on above: Performed By: #### 5 7021-8 #### MIRANDA Sims ([id number]) [facility] ([facility]) [address] [place] [address] Basophils/100 WBC (Bld) 0.5 % Normal 0.0-2.0 [facility] Comment on above: Performed By: #### 5 7021-8 #### MIRANDA Sims ([id number]) [facility] ([facility]) [id number] [place] [address] Eosinophils (Bld) [#/Vol] 0.09 x10*3/uL Normal 0.00-0.70 [facility] Comment on above: Performed By: #### 5 7021-8 #### MIRANDA GONZALEZ L ([id number]) [facility] ([facility]) [address] [place] [address] Eosinophils/100 WBC (Bld) 0.7 % Normal 0.0-6.0 [facility] Comment on above: Performed By: #### 5 7021-8 #### MIRANDA GONZALEZ L ([id number]) [facility] ([facility]) [address] [place] [address] Erythrocyte distribution width (RBC) [Ratio] 12.0 % Normal 11.5-14.5 [facility] Comment on above: Performed By: #### 5 7021-8 #### MIRANDA Sims ([id number]) [facility] ([facility]) [address] [place] [address] Hematocrit (Bld) [Volume fraction] 45.9 % Normal 41.0-52.0 [facility] Comment on above: Performed By: #### 5 7021-8 #### MIRANDA Sims ([id number]) [facility] ([facility]) [address] [place] [address] Hemoglobin (Bld) [Mass/Vol] 16.3 g/dL Normal 13.5-17.5 [facility] Comment on above: Performed By: #### 5 7021-8 #### MIRANDA Sims ([id number]) [facility] ([facility]) [address] [place] [address] Immature granulocytes (Bld) [#/Vol] 0.09 x10*3/uL Normal 0.00-0.70 [facility] Comment on above: Performed By: #### 5 7021-8 #### MIRANDA Sims ([id number]) [facility] ([facility]) [address] [place] [address] Immature granulocytes/100 WBC (Bld) 0.7 % Normal 0.0-0.9 [facility] Comment on above: Result Comment: Zora ture Granulocyte Count (IG) includes promyelocytes, myelocytes and metamyelocytes but does not include bands. Percent differential counts (%) should be interpreted in the context of the absolute cell counts (cells/UL). Performed By: #### 5 7021-8 #### MIRANDA Sims ([id number]) [facility] ([facility]) [address] [place] [address] Lymphocytes (Bld) [#/Vol] 2.28 x10*3/uL Normal 1.20-4.80 [facility] Comment on above: Performed By: #### 5 7021-8 #### MIRANDA Sims ([id number]) [facility] ([facility]) [id number] [place] [address] Lymphocytes/100 WBC (Bld) 16.5 % Normal 13.0-44.0 [facility] Comment on above: Performed By: #### 5 7021-8 #### MIRANDA Sims ([id number]) [facility] ([facility]) [address] [place] [address] 57762 MCH (RBC) [Entitic mass] 30.2 pg Normal 26.0-34.0 [facility] Comment on above: Performed By: #### 5 7021-8 #### MIRANDA Sims ([id number]) [facility] ([facility]) [address] [place] [address]684 MCHC (RBC) [Mass/Vol] 35.5 g/dL Normal 32.0-36.0 [facility] Comment on above: Performed By: #### 5 7021-8 #### MIRANDA Sims ([id number]) [facility] ([facility]) [address] [place] [address] MCV (RBC) [Entitic vol] 85 fL Normal 80-100 [facility] Comment on above: Performed By: #### 5 7021-8 #### MIRANDA Sims ([id number]) [facility] ([facility]) [address] [place] [address] 86392 Monocytes (Bld) [#/Vol] 0.96 x10*3/uL Normal 0.10-1.00 [facility] Comment on above: Performed By: #### 5 7021-8 #### MIRANDA Sims ([id number]) [facility] ([facility]) [address] [place] [address]107 Monocytes/100 WBC (Bld) 7.0 % Normal 2.0-10.0 [facility] Comment on above: Performed By: #### 5 7021-8 #### MIRANDA Sims ([id number]) [facility] ([facility]) [address] [place] [address] [place] [address] Neutrophils (Bld) [#/Vol] 10.32 x10*3/uL High 1.20-7.70 [facility] Comment on above: Result Comment: Perc ent differential counts (%) should be interpreted in the context of the absolute cell counts (cells/uL). Performed By: #### 5 7021-8 #### MIRANDA GONZALEZ L ([id number]) [facility] ([facility]) [address] [place] [address] Neutrophils/100 WBC (Bld) 74.6 % Normal 40.0-80.0 [facility] Comment on above: Performed By: #### 5 7021-8 #### MIRANDA GONZALEZ L ([id number]) [facility] ([facility]) [address] [place] [address]115 Nucleated RBC/100 WBC (Bld) [Ratio] 0.0 /100 WBCs Normal 0.0-0.0 [facility] Comment on above: Performed By: #### 5 7021-8 #### MIRANDA STEVEMOTZER L ([id number]) [facility] ([facility]) [address] [place] [address] Platelets (Bld) [#/Vol] 230 x10*3/uL Normal 150-450 [facility] Comment on above: Performed By: #### 5 7021-8 #### MIRANDA STEVEMOTZER L ([id number]) [facility] ([facility]) [address] [place] [address] RBC (Bld) [#/Vol] 5.40 x10*6/uL Normal 4.50-5.90 [facility] Comment on above: Performed By: #### 5 7021-8 #### MIRANDA STEVEMOTZER L ([id number]) [facility] ([facility]) [address] [place] [address] WBC (Bld) [#/Vol] 13.8 x10*3/uL High 4.4-11.3 [facility] Comment on above: Performed By: #### 5 7021-8 #### MIRANDA Sims ([id number]) [facility] ([facility]) [address] [place] [address] CT ANKLE RIGHT WO IV CONTRAS Ton 10-31-2024 CT ANKLE RIGHT WO IV CONTRAST Interpreted By: Julián Mendez, Errol Leonard STUDY: CT of right foot without contrast. INDICATION: Signs/Symptoms:ankle fx COMPARISON: Radiographs of the ankle 10/31/2024. ACCESSION NUMBER(S): [id number] ORDERING CLINICIAN: NOAH COLVIN TECHNIQUE: Contiguous axial CT images were obtained at 2 mm slice thickness of the right ankle without contrast. Coronal and sagittal reconstructions were performed. FINDINGS: Bones and joints: Redemonstration of acute comminuted fracture of the distal fibular diaphysis with minimal posterior displacement of the distal fracture fragment of 0.3 cm. There is no evidence of intra-articular extension/propagatio n of the fracture line into the ankle [...] Horacio Loera. This study was interpreted at [place], [place]. MACRO: None Signed by: Julián Mendez 10/31/2024 11:31 PM Dictation workstation: [id number] [facility] CT Ankle - right WO contrast [...] Horacio Loera. This study was interpreted at [place], [place]. MACRO: None Signed by: Julián Mendez 10/31/2024 11:31 PM Dictation workstation: [id number] Interpreted By: Julián Mendez, Errol Leonard STUDY: CT of right foot without contrast. INDICATION: Signs/Symptoms:ankle fx COMPARISON: Radiographs of the ankle 10/31/2024. ACCESSION NUMBER(S): [id number] ORDERING CLINICIAN: NOAH COLVIN TECHNIQUE: Contiguous axial CT images were obtained at 2 mm slice thickness of the right ankle without contrast. Coronal and sagittal reconstructions were performed. FINDINGS: Bones and joints: Redemonstration of acute comminuted fracture of the distal fibular diaphysis with minimal posterior displacement of the distal fracture fragment of 0.3 cm. There is no evidence of intra-articular extension/propagatio n of the fracture line into the ankle [...] Radiographs of the ankle 10/31/2024. ACCESSION NUMBER(S): [id number] ORDERING CLINICIAN: NOAH COLVIN TECHNIQUE: Contiguous axial CT images were obtained at 2 mm slice thickness of the right ankle without contrast. Coronal and sagittal reconstructions were performed. FINDINGS: Bones and joints: Redemonstration of acute comminuted fracture of the distal fibular diaphysis with minimal posterior displacement of the distal fracture fragment of 0.3 cm. There is no evidence of intra-articular extension/propagatio n of the fracture line into the ankle [...] Horacio Loera. This study was interpreted at [place], [place]. MACRO: None Signed by: Julián Mendez 10/31/2024 11:31 PM Dictation workstation: [id number] [facility] Work Phone: [facility] Work Phone: CT CERVICAL SPINE WO IV CONT RASTon 10-31-2024 CT CERVICAL SPINE WO IV CONTRAST Interpreted By: Julián Mendez and Hofer Lindsay STUDY: CT CERVICAL SPINE WO IV CONTRAST; 11/01/2024 12:31 am INDICATION: Signs/Symptoms:fall/ seizure. COMPARISON: None. ACCESSION NUMBER(S): [id number] ORDERING CLINICIAN: EDNA CHOUDHARY TECHNIQUE: Axial noncontrast [...] This study was analyzed and interpreted at [place], [place]. MACRO: None. Signed by: Julián Mendez 11/01/2024 1:04 AM Dictation workstation: [id number] Normal [facility] CT CHEST ABDOMEN PELVIS W IV CONTRASTon 10-31-2024 CT CHEST ABDOMEN PELVIS W IV CONTRAST Interpreted By: Julián Mendez and Ritchie Brandon STUDY: CT CHEST ABDOMEN PELVIS W IV CONTRAST; CT THORACIC SPINE RETROSPECTIVE RECONSTRUCTION PROTOCOL; CT LUMBAR SPINE RETROSPECTIVE RECONSTRUCTION PROTOCOL; 11/01/2024 12:31 am INDICATION: Signs/Symptoms:fall/ seizure. COMPARISON: Radiograph of the chest 10/31/2024. ACCESSION NUMBER(S): [id number]; [id number]; [id number] ORDERING CLINICIAN: EDNA CHOUDHARY TECHNIQUE: Contiguous axial [...] abnormality. VESSELS: No acute vascular injury. LYMPH NODES/RETROPERITONEU M: No acute retroperitoneal abnormality. No enlarged lymph nodes. BOWEL/MESENTERY/AZAM TONEUM: No bowel wall thickening or dilatation. Normal appendix. No ascites, free air or fluid collection. MUSCULOSKELETAL: Mild amount of degenerative/sclerot ic changes involving the sacroiliac joints. No evidence [...] No significant neural foraminal stenosis. IMPRESSION: CT CHEST/ABDOMEN/PELVIS : *No acute traumatic injury. CT THORACIC AND LUMBAR SPINE: *No acute fracture or traumatic malalignment. I personally reviewed the images/study and I agree with the findings as stated by resident Horacio Loera. This study was interpreted at [place], [place]. MACRO: None. Signed by: Julián Mendze 11/01/2024 1:14 AM Dictation workstation: [id number] [facility] CT HEAD WO IV CONTRASTon CT HEAD WO IV CONTRAST Interpreted By: Julián Mendez and Ritchie Brandon STUDY: CT HEAD WO IV CONTRAST; 10/31/2024 9:49 pm INDICATION: Signs/Symptoms:mult falls, LOC vs seizure COMPARISON: None. ACCESSION NUMBER(S): [id number] ORDERING CLINICIAN: NOAH COLVIN TECHNIQUE: Axial noncontrast [...] Horacio Loera. This study was interpreted at [place], [place]. MACRO: None. Signed by: Julián Mendez 10/31/2024 10:31 PM Dictation workstation: [id number] [facility] CT Head WO contraston 2024 CT HEAD: *No acute intracranial abnormality or calvarial fracture. I personally reviewed the images/study and I agree with the findings as stated by resident Horacio Loera. This study was interpreted at [place], [place]. MACRO: None. Signed by: Julián Mendez 10/31/2024 10:31 PM Dictation workstation: [id number] MMODAL Interpreted By: Julián Mendez and Ritchie Brandon STUDY: CT HEAD WO IV CONTRAST; 10/31/2024 9:49 pm INDICATION: Signs/Symptoms:mult falls, LOC vs seizure COMPARISON: None. ACCESSION NUMBER(S): [id number] ORDERING CLINICIAN: NOAH COLVIN TECHNIQUE: Axial noncontrast [...] LOC vs seizure COMPARISON: None. ACCESSION NUMBER(S): [id number] ORDERING CLINICIAN: NOAH COLVIN TECHNIQUE: Axial noncontrast [...] Horacio Loera. This study was interpreted at [facility], [place], [place]. MACRO: None. Signed by: Julián Mendez 10/31/2024 10:31 PM Dictation workstation: [id number] [facility] Work Phone: [facility] Work Phone: CT LUMBAR SPINE RETROSPECTIV E RECONSTRUCTION PROTOCOLon 10-31-2024 CT LUMBAR SPINE RETROSPECTIVE RECONSTRUCTION PROTOCOL Interpreted By: Julián Mendez, Errol Leonard STUDY: CT CHEST ABDOMEN PELVIS W IV CONTRAST; CT THORACIC SPINE RETROSPECTIVE RECONSTRUCTION PROTOCOL; CT LUMBAR SPINE RETROSPECTIVE RECONSTRUCTION PROTOCOL; 11/01/2024 12:31 am INDICATION: Signs/Symptoms:fall/ seizure. COMPARISON: Radiograph of the chest 10/31/2024. ACCESSION NUMBER(S): [id number]; [id number]; [id number] ORDERING CLINICIAN: EDNA CHOUDHARY TECHNIQUE: Contiguous axial [...] abnormality. VESSELS: No acute vascular injury. LYMPH NODES/RETROPERITONEU M: No acute retroperitoneal abnormality. No enlarged lymph nodes. BOWEL/MESENTERY/AZAM TONEUM: No bowel wall thickening or dilatation. Normal appendix. No ascites, free air or fluid collection. MUSCULOSKELETAL: Mild amount of degenerative/sclerot ic changes involving the sacroiliac joints. No evidence [...] No significant neural foraminal stenosis. IMPRESSION: CT CHEST/ABDOMEN/PELVIS : *No acute traumatic injury. CT THORACIC AND LUMBAR SPINE: *No acute fracture or traumatic malalignment. I personally reviewed the images/study and I agree with the findings as stated by resident Horacio Loera. This study was interpreted at [place], [place]. MACRO: None. Signed by: Julián Mendez 11/01/2024 1:14 AM Dictation workstation: [id number] Normal [facility] CT THORACIC SPINE RETROSPECT IVONE RECONSTRUCTION PROTOCOLon 10-31-2024 CT THORACIC SPINE RETROSPECTIVE RECONSTRUCTION PROTOCOL Interpreted By: Julián Mendez and Ritchie Brandon STUDY: CT CHEST ABDOMEN PELVIS W IV CONTRAST; CT THORACIC SPINE RETROSPECTIVE RECONSTRUCTION PROTOCOL; CT LUMBAR SPINE RETROSPECTIVE RECONSTRUCTION PROTOCOL; 11/01/2024 12:31 am INDICATION: Signs/Symptoms:fall/ seizure. COMPARISON: Radiograph of the chest 10/31/2024. ACCESSION NUMBER(S): [id number]; [id number]; [id number] ORDERING CLINICIAN: EDNA CHOUDHARY TECHNIQUE: Contiguous axial [...] abnormality. VESSELS: No acute vascular injury. LYMPH NODES/RETROPERITONEU M: No acute retroperitoneal abnormality. No enlarged lymph nodes. BOWEL/MESENTERY/AZAM TONEUM: No bowel wall thickening or dilatation. Normal appendix. No ascites, free air or fluid collection. MUSCULOSKELETAL: Mild amount of degenerative/sclerot ic changes involving the sacroiliac joints. No evidence [...] No significant neural foraminal stenosis. IMPRESSION: CT CHEST/ABDOMEN/PELVIS : *No acute traumatic injury. CT THORACIC AND LUMBAR SPINE: *No acute fracture or traumatic malalignment. I personally reviewed the images/study and I agree with the findings as stated by resident Horacio Loera. This study was interpreted at [facility], [place], [place]. MACRO: None. Signed by: Julián Mendez 11/01/2024 1:14 AM Dictation workstation: [id number] Normal [facility] Comprehensive metabolic 2000 panelon 10-31-2024 Albumin BCP dye [Mass/Vol] 4.8 g/dL 3.4 - 5.0 g/dL [facility] ALP [Catalytic activity/Vol] 89 U/L 33 - 120 U/L [facility] ALT With P-5'-P [Catalytic activity/Vol] 39 U/L 10 - 52 U/L [facility] Comment on above: Patients treated wit h Sulfasalazine may generate falsely decreased results for ALT. Anion gap [Moles/Vol] 12 mmol/L 10 - 20 mmol/L [facility] AST With P-5'-P [Catalytic activity/Vol] 24 U/L 9 - 39 U/L [facility] Bilirubin [Mass/Vol] 0.6 mg/dL 0.0 - 1 .2 mg/dL [facility] Calcium [Mass/Vol] 10.1 mg/dL 8.6 - 10. 6 mg/dL [facility] Chloride [Moles/Vol] 98 mmol/L 98 - 10 7 mmol/L [facility] CO2 [Moles/Vol] 29 mmol/L 21 - 32 mmol/L [facility] Creatinine [Mass/Vol] 1.14 mg/dL 0.50 - 1.30 mg/dL [facility] GFR/1.73 sq M.predicted among non-blacks MDRD (S/P/Bld) [Vol rate/Area] 88 mL/min/{1.73_m2} - PINF [facility] Comment on above: Calculations of davey mated GFR are performed using the 2020 CKD-EPI Study Refit equation without the race variable for the IDMS-Traceable creatinine methods. https://jasn.asnjournals.org/content/early/ASN.2020 551077 Glucose [Mass/Vol] 101 mg/dL High 74 - 99 mg/dL [facility] Interpretation and review of laboratory results Abnormal [facility] Potassium [Moles/Vol] 4.4 mmol/L 3.5 - 5.3 mmol/L [facility] Protein [Mass/Vol] 8.2 g/dL 6.4 - 8.2 g[facility]dL [facility] Sodium [Moles/Vol] 135 mmol/L Low 136 - 145 mmol/L [facility] Urea nitrogen [Mass/Vol] 15 mg/dL 6 - 23 mg/dL [facility] Albumin BCP dye [Mass/Vol] 4.8 g/dL Normal 3.4-5.0 [facility] Comment on above: Performed By: #### 2 4323-8 #### MIRANDA Sims ([id number]) [facility] ([facility]) [id number] [place] [address] ALP [Catalytic activity/Vol] 89 U/L Normal 33-120 [facility] Comment on above: Performed By: #### 2 4323-8 #### MIRANDA Sims ([id number]) [facility] ([facility]) [id number] [place] [address] 83471 ALT With P-5'-P [Catalytic activity/Vol] 39 U/L Normal 10-52 [facility] Comment on above: Result Comment: Chloe ents treated with Sulfasalazine may generate falsely decreased results for ALT. Performed By: #### 2 4323-8 #### MIRANDA Sims ([id number]) [facility] ([facility]) [address] [place] [address] Anion gap [Moles/Vol] 12 mmol/L Normal 10-20 [facility] Comment on above: Performed By: #### 2 4323-8 #### MIRANDA Sims ([id number]) [facility] ([facility]) [address] [place] [address] AST With P-5'-P [Catalytic activity/Vol] 24 U/L Normal 9-39 [facility] Comment on above: Performed By: #### 2 4323-8 #### MIRANDA Sims ([id number]) [facility] ([facility]) [address] [place] [address] Bilirubin [Mass/Vol] 0.6 mg/dL Normal 0.0-1.2 [facility] Comment on above: Performed By: #### 2 4323-8 #### MIRANDA Sims ([id number]) [facility] ([facility]) [address] [place] [address] 64896 Calcium [Mass/Vol] 10.1 mg/dL Normal 8.6-10.6 [facility] [place] Comment on above: Performed By: #### 2 4323-8 #### MIRANDA Sims ([id number]) [facility] ([facility]) [id number] [place] [address]407 Chloride [Moles/Vol] 98 mmol/L Normal 98-107 [facility] Comment on above: Performed By: #### 2 4323-8 #### MIRANDA Sims ([id number]) [facility] ([facility]) [id number] [place] [address] 32167 CO2 [Moles/Vol] 29 mmol/L Normal 21-32 [facility] Comment on above: Performed By: #### 2 4323-8 #### MIRANDA Sims ([id number]) [facility] ([facility]) [address] [place] [address] 74310 Creatinine [Mass/Vol] 1.14 mg/dL Normal 0.50-1.30 [facility] Comment on above: Performed By: #### 2 4323-8 #### MIRANDA Sims ([id number]) [facility] ([facility]) [id number] [place] [address]321 Glomerular filtration rate/1.73 sq M.predicted 88 mL/min/1.73m*2 Normal >60 [facility] Comment on above: Result Comment: Calc ulations of estimated GFR are performed using the 2020 CKD-EPI Study Refit equation without the race variable for the IDMS-Traceable creatinine methods. https://jasn.asnjournals.org/content//ASN.2020 832742 Performed By: #### 2 4323-8 #### MIRANDA Sims ([id number]) [facility] SYSTEM [facility] ([facility]) [address] [place] [address] Glucose [Mass/Vol] 101 mg/dL High 74-99 [facility] [place] Comment on above: Performed By: #### 2 4323-8 #### MIRANDA GONZALEZ L ([id number]) [facility] ([facility]) [address] [place] [address] Potassium [Moles/Vol] 4.4 mmol/L Normal 3.5-5.3 [facility] Comment on above: Performed By: #### 2 4323-8 #### MIRANDA GONZALEZ L ([id number]) [facility] ([facility]) [address] [place] [address]45[address] Protein [Mass/Vol] 8.2 g/dL Normal 6.4-8.2 [facility] [place] Comment on above: Performed By: #### 2 4323-8 #### MIRANDA GONZALEZ L ([id number]) [facility] ([facility]) [id number] [place] [address]249 Sodium [Moles/Vol] 135 mmol/L Low 136-145 [facility] [place] Comment on above: Performed By: #### 2 4323-8 #### MIRANDA GONZALEZ L ([id number]) [facility] ([facility]) [address] [place] [address]28 Urea nitrogen [Mass/Vol] 15 mg/dL Normal 6-23 [facility] Comment on above: Performed By: #### 2 4323-8 #### MIRANDA GONZALEZ L ([id number]) [facility] ([facility]) [address] [place] [address] 79459 ECG 12 leadOrdered By: Linda Rich on 10-31-2024 Atrial Rate 99 BPM [facility] Work Phone: [phone] P [place] 58 degrees [facility] Work Phone: [phone] P Offset 200 ms [facility] Work Phone: [phone] P Onset 148 ms [facility] Work Phone: [phone] DC Interval 156 ms [facility] Work Phone: [phone] Q Onset 226 ms [facility] Work Phone: [phone] QRS Count 16 beats [facility] Work Phone: [phone] QRS Duration 92 ms [facility] Work Phone: [phone] QT Interval 340 ms [facility] Work Phone: [phone] QTC Calculation(Bazett) 436 ms U [facility] Work Phone: [phone] QTC Fredericia 401 ms [facility] Work Phone: [phone] R [place] 55 degrees [facility] Work Phone: [phone] T [place] 56 degrees [facility] Work Phone: [phone] T Offset 396 ms [facility] Work Phone: [phone] Ventricular Rate 99 BPM [facility] Work Phone: [phone] [facility] Work Phone: [phone] ECG 12 leadon 10-31-2024 Normal sinus rhythm Nonspecific ST abnormality Abnormal ECG No previous ECGs available See ED provider note for full interpretation and clinical correlation Confirmed by Linda Rich ([id number]) on 10/31/2024 7:19:36 PM MUSE Linda Rich, MANAGER CATEGORY[facility] - 10/31/2024 Normal sinus rhythm Nonspecific ST abnormality Abnormal ECG No previous ECGs available See ED provider note for full interpretation and clinical correlation Confirmed by Linda Rich ([id number]) on 10/31/2024 7:19:36 PM [facility] Work Phone: Ethanolon 10-31-2024 Ethanol [Mass/Vol] mg/dL NINF - 10 mg/dL [facility] Comment on above: For medical use only . Ethanol [Mass/Vol] mg/dL Normal <=10 [facility] [place] Comment on above: Result Comment: For medical use only. Performed By: #### 5 643-2 ####MIRANDA Sims ([id number])[facility] ([facility])[address] [place] [address] Ethanol [Mass/Vol]on 025 Interpretation and review of laboratory results Normal [facility] Gas panel (BldV)on Anion gap 4 (BldV) [Moles/Vol] 9 mmol/L Low 10.0 - 25.0 mmol/L [facility] Base excess Calc (BldV) [Moles/Vol] 2.7 mmol/L -2.0 - 3.0 mmol/L [facility] Calcium.ionized (BldV) [Moles/Vol] 1.23 mmol/L 1.10 - 1.33 mmol/L [facility] Chloride (BldV) [Moles/Vol] 99 mmol/L 98 - 107 mmol/L [facility] CO2 (BldV) [Partial pressure] 54 mm[Hg] High [facility] Glucose [Mass/Vol] 110 mg/dL High 74 - 99 mg/dL [facility] HCO3 (Bld) [Moles/Vol] 29.8 mmol/L High 22.0 - 26.0 mmol/L [facility] Hematocrit Est (Bld) [Volume fraction] 48 % 41.0 - 52.0 % [facility] Hemoglobin (Bld) [Mass/Vol] 16.1 g/dL 13.5 - 17.5 g/dL [facility] Inhaled oxygen concentration 21 % [facility] Interpretation and review of laboratory results Abnormal [facility] Lactate (BldV) [Moles/Vol] 1.3 mmol/L 0.4 - 2.0 mmol/L [facility] Oxygen (BldV) [Partial pressure] 24 mm[Hg] Low [facility] Oxygen saturation in Venous blood 37 % Low 45 - 75 % [facility] Oxyhemoglobin (BldV) [Mass fraction] 36.4 % Low 45.0 - 75.0 % [facility] pH (BldV) 7.35 [pH] 7.33 - 7.43 pH [facility] Potassium (BldV) [Moles/Vol] 4.6 mmol/L 3.5 - 5.3 mmol/L [facility] Sodium (BldV) [Moles/Vol] 133 mmol/L Low 136 - 145 mmol/L [facility] Anion gap 4 (BldV) [Moles/Vol] 9.0 mmol/L Low 10.0-25.0 [facility] Comment on above: Performed By: #### 2 4339-4 #### MIRANDA Sims ([id number]) [facility] ([facility]) [address] [place] [address] 75883 Base excess Calc (BldV) [Moles/Vol] 2.7 mmol/L Normal -2.0-3.0 [facility] Comment on above: Performed By: #### 2 4339-4 #### MIRANDA Sims ([id number]) [facility] ([facility]) [address] [place] [address] 27389 Calcium.ionized (BldV) [Moles/Vol] 1.23 mmol/L Normal 1.10-1.33 [facility] Comment on above: Performed By: #### 2 4339-4 #### MIRANDA Sims ([id number]) [facility] ([facility]) [address] [place] [address] 13215 Chloride (BldV) [Moles/Vol] 99 mmol/L Normal 98-107 [facility] Comment on above: Performed By: #### 2 4339-4 #### MIRANDA Sims ([id number]) [facility] ([facility]) [address] [place] [address] 97995 CO2 (BldV) [Partial pressure] 54 mm Hg High 41-51 [facility] Comment on above: Performed By: #### 2 4339-4 #### MIRANDA Sims ([id number]) [facility] ([facility]) [address] [place] [address] Glucose [Mass/Vol] 110 mg/dL High 74-99 [facility] [place] Comment on above: Performed By: #### 2 4339-4 #### MIRANDA Sims ([id number]) [facility] ([facility]) [address] [place] [address] HCO3 (Bld) [Moles/Vol] 29.8 mmol/L High 22.0-26.0 [facility] Comment on above: Performed By: #### 2 4339-4 #### MIRANDA Sims ([id number]) [facility] ([facility]) [address] [place] [address]902 Hematocrit Est (Bld) [Volume fraction] 48.0 % Normal 41.0-52.0 [facility] Comment on above: Performed By: #### 2 4339-4 #### MIRANDA Sims ([id number]) [facility] ([facility]) [address] [place] [address] 80745 Hemoglobin (Bld) [Mass/Vol] 16.1 g/dL Normal 13.5-17.5 [facility] Comment on above: Performed By: #### 2 4339-4 #### MIRANDA Sims ([id number]) [facility] ([facility]) [address] [place] [address] 78726 Inhaled oxygen concentration 21 % Normal [facility] Comment on above: Performed By: #### 2 4339-4 #### MIRANDA Sims ([id number]) [facility] ([facility]) [address] [place] [address] 82670 Lactate (BldV) [Moles/Vol] 1.3 mmol/L Normal 0.4-2.0 [facility] Comment on above: Performed By: #### 2 4339-4 #### MIRANDA Sims ([id number]) [facility] ([facility]) [address] [place] [address] 96411 Oxygen (BldV) [Partial pressure] 24 mm Hg Low 35-45 [facility] Comment on above: Performed By: #### 2 4339-4 #### MIRANDA Sims ([id number]) [facility] ([facility]) [address] [place] [address] 80451 Oxygen saturation in Venous blood 37 % Low 45-75 [facility] Comment on above: Performed By: #### 2 4339-4 #### MIRANDA Sims ([id number]) [facility] ([facility]) [address] [place] [address] 07735 Oxyhemoglobin (BldV) [Mass fraction] 36.4 % Low 45.0-75.0 [facility] Comment on above: Performed By: #### 2 4339-4 #### MIRANDA Sims ([id number]) [facility] ([facility]) [address] [place] [address] 51419 pH (BldV) 7.35 [pH] Normal 7.33-7.43 [facility] Comment on above: Performed By: #### 2 4339-4 #### MIRANDA Sims ([id number]) [facility] ([facility]) [address] [place] [address] 48902 Potassium (BldV) [Moles/Vol] 4.6 mmol/L Normal 3.5-5.3 [facility] Comment on above: Performed By: #### 2 4339-4 #### MIRANDA Sims ([id number]) [facility] ([facility]) [address] [place] [address] 60684 Sodium (BldV) [Moles/Vol] 133 mmol/L Low 136-145 [facility] Comment on above: Performed By: #### 2 4339-4 #### MIRANDA Sims ([id number]) [facility] ([facility]) [address] [place] [address] 12762 Glucose Test strip manual (B ld) [Mass/Vol]on 10-31-2024 Glucose [Mass/Vol] 108 mg/dL High 74 - 99 mg/dL [facility] Interpretation and review of laboratory results Abnormal [facility] Glucose [Mass/Vol] 108 mg/dL High 74-99 [facility] [place] Comment on above: Performed By: #### 2 341-6 #### MIRANDA Sims ([id number]) [facility] ([facility]) [address] [place] [address] 20133 Magnesiumon 10-31-2024 Magnesium [Mass/Vol] 2.37 mg/dL 1.60 - 2.40 mg/dL [facility] Magnesium [Mass/Vol] 2.37 mg/dL Normal 1.60-2.40 [facility] Comment on above: Performed By: #### 1 9123-9 #### MIRANDA Sims ([id number]) [facility] ([facility]) [address] [place] [address] 17938 Magnesium [Mass/Vol]on 10-31 Interpretation and review of laboratory results Normal [facility] No Panel Informationon 10-31 Radiology Study observation (narrative) [facility] Work Phone: [facility] Comminuted distal fibular fracture with additional medial malleolar avulsion injury. Suspected medial clear space widening. No evidence of syndesmotic widening. MACRO: None Signed by: Bryson Fam 10/31/2024 6:41 PM Dictation workstation: [id number] [facility] Interpreted By: Bryson Fam, STUDY: XR TIBIA FIBULA RIGHT 2 VIEWS; XR ANKLE RIGHT 3+ VIEWS; XR KNEE RIGHT 4+ VIEWS; ; 10/31/2024 6:31 pm; 10/31/2024 6:32 pm INDICATION: Signs/Symptoms:pain after injury; Signs/Symptoms:r/o fx. COMPARISON: None. ACCESSION NUMBER(S): [id number]; [id number]; [id number] ORDERING CLINICIAN: NOAH STUART FINDINGS: Four views of the right knee. Two views of the right tibia/fibula. Three views of the right ankle. Soft tissue swelling about the ankle. There an avulsion fracture of the medial malleolus. Obliquely oriented comminuted distal fibular fracture above the level of the distal tibiofibular syndesmosis. There is suspected medial clear space widening. No evidence of syndesmotic widening. [facility] Bryson Fam MD - 10/31/2024 Interpreted By: Bryson Fam, STUDY: XR TIBIA FIBULA RIGHT 2 VIEWS; XR ANKLE RIGHT 3+ VIEWS; XR KNEE RIGHT 4+ VIEWS; ; 10/31/2024 6:31 pm; 10/31/2024 6:32 pm INDICATION: Signs/Symptoms:pain after injury; Signs/Symptoms:r/o fx. COMPARISON: None. ACCESSION NUMBER(S): [id number]; [id number]; [id number] ORDERING CLINICIAN: NOAH STUART FINDINGS: Four views [...] Bryson Fam 10/31/2024 6:41 PM Dictation workstation: [id number] [facility] Work Phone: Radiology Study observation (narrative) [facility] Work Phone: No Panel InformationOrdered By: Bryson Fam on 10-31-2024 [facility] Work Phone: PT and aPTT panel Coag (PPP) on 10-31-2024 aPTT Coag (PPP) [Time] 26 s [facility] INR Coag (PPP) [Relative time] 1 {INR} 0.9 - 1.1 [facility] Interpretation and review of laboratory results Normal [facility] PT Coag (PPP) [Time] 11 s [facility] The APTT is no longer used for monitoring Unfractionated Heparin Therapy. For monitoring Heparin Therapy, use the Heparin Assay. [facility] aPTT Coag (PPP) [Time] 26 s Normal 26-36 [facility] Comment on above: Order Comment: The A PTT is no longer used for monitoring Unfractionated Heparin Therapy. For monitoring Heparin Therapy, use the Heparin Assay. Performed By: #### 3 4529-8 ####MIRANDA Sims ([id number])[facility] ([facility])[address] [place] [address] 35397 INR Coag (PPP) [Relative time] 1.0 Normal 0.9-1.1 [facility] Comment on above: Order Comment: The A PTT is no longer used for monitoring Unfractionated Heparin Therapy. For monitoring Heparin Therapy, use the Heparin Assay. Performed By: #### 3 4529-8 ####MIRANDA Sims ([id number])[facility] ([facility])[address] [place] [address] 54710 PT Coag (PPP) [Time] 11.0 s Normal 9.8-12.4 [facility] Comment on above: Order Comment: The A PTT is no longer used for monitoring Unfractionated Heparin Therapy. For monitoring Heparin Therapy, use the Heparin Assay. Performed By: #### 3 4529-8 ####MIRANDA Sims ([id number])[facility] ([facility])[address] [place] [address] 17423 Tropinin I.cardiac panel Hig h sensitivity methodon 10-31-2024 Interpretation and review of laboratory results Normal [facility] Less than 99th percentile of normal [...] performed using a different testing methodology at [facility] than at other [facility]. Direct result comparisons should only be made within the same method. [facility] Interpretation and review of laboratory results Normal [facility] Less than 99th percentile of normal [...] performed using a different testing methodology at [facility] than [facility]. Direct result comparisons should only be made within the same method. [facility] Troponin I, High Sensitivity , Initialon 10-31-2024 Tropinin I.cardiac panel High sensitivity method ng/L 0 - 53 ng/L [facility] Troponin I.cardiac panelon 0 10-31-2024 Tropinin I.cardiac panel High sensitivity method <3 Normal 0-53 [facility] Comment on above: Order Comment: Less [...] is performed using a differenttesting methodology at [facility] than at [facility]. Direct result comparisons should onlybe made within the same method. Performed By: #### 8 9577-1 ####MIRANDA Sims ([id number])[facility] ([facility])[address] [place] [address] 94846 Tropinin I.cardiac panel High sensitivity method <3 Normal 0-53 [facility] Comment on above: Order Comment: Less [...] performed using a different testing methodology at [facility] than at [facility]. Direct result comparisons should only be made within the same method. Performed By: #### 8 9577-1 #### MIRANDA Sims ([id number]) [facility] ([facility]) [address] [place] [address] 75448 Troponin, High Sensitivity, 1 Houron 10-31-2024 Tropinin I.cardiac panel High sensitivity method ng/L 0 - 53 ng/L [facility] XR ANKLE RIGHT 3+ VIEWSon XR ANKLE RIGHT 3+ VIEWS Interpreted By: Julián Mendez and Ritchie Brandon STUDY: XR ANKLE RIGHT 3+ VIEWS; ; 10/31/2024 9:38 pm INDICATION: Signs/Symptoms:post reduction. COMPARISON: Radiograph of the right ankle 10/31/2024, 6:32 p.m.. ACCESSION NUMBER(S): [id number] ORDERING CLINICIAN: NOAH COLVIN TECHNIQUE: Three views [...] Horacio Loera. This study was interpreted at [place], [place]. MACRO: None Signed by: Julián Mendez 10/31/2024 10:25 PM Dictation workstation: [id number] [facility] XR ANKLE RIGHT 3+ VIEWS Interpreted By: Bryson Fam, STUDY: XR TIBIA FIBULA RIGHT 2 VIEWS; XR ANKLE RIGHT 3+ VIEWS; XR KNEE RIGHT 4+ VIEWS; ; 10/31/2024 6:31 pm; 10/31/2024 6:32 pm INDICATION: Signs/Symptoms:pain after injury; Signs/Symptoms:r/o fx. COMPARISON: None. ACCESSION NUMBER(S): [id number]; [id number]; [id number] ORDERING CLINICIAN: NOAH STUART FINDINGS: Four views [...] Bryson Fam 10/31/2024 6:41 PM Dictation workstation: [id number] [facility] XR Ankle - right 3 Viewson 0 10-31-2024 *Comminuted fibula fracture with similar alignment compared to prior imaging. Previously described medial malleolus avulsion fracture is not well visualized, likely obscured by overlying cast material. I personally reviewed the images/study and I agree with the findings as stated by resident Horacio Loera. This study was interpreted at [place], [place]. MACRO: None Signed by: Julián Mendez 10/31/2024 10:25 PM Dictation workstation: [id number] [facility] Interpreted By: Julián Mendez and Ritchie Brandon STUDY: XR ANKLE RIGHT 3+ VIEWS; ; 10/31/2024 9:38 pm INDICATION: Signs/Symptoms:post reduction. COMPARISON: Radiograph of the right ankle 10/31/2024, 6:32 p.m.. ACCESSION NUMBER(S): [id number] ORDERING CLINICIAN: NOAH COLVIN TECHNIQUE: Three views [...] right ankle 10/31/2024, 6:32 p.m.. ACCESSION NUMBER(S): [id number] ORDERING CLINICIAN: NOAH COLVIN TECHNIQUE: Three views [...] Horacio Loera. This study was interpreted at [place], [place]. MACRO: None Signed by: Julián Mendez 10/31/2024 10:25 PM Dictation workstation: [id number] [facility] Work Phone: Radiology Study observation (narrative) [facility] Work Phone: XR Ankle - right 3 ViewsOrde red By: Julián Mendez on 10-31-2024 [facility] Work Phone: XR CHEST 1 VIEWon 10-31-2024 XR CHEST 1 VIEW Interpreted By: Bryson Fam, STUDY: XR CHEST 1 VIEW; 10/31/2024 6:32 pm INDICATION: Signs/Symptoms:preop . COMPARISON: None. ACCESSION NUMBER(S): [id number] ORDERING CLINICIAN: IKE STUART FINDINGS: AP radiograph of the chest was provided. CARDIOMEDIASTINAL SILHOUETTE: Cardiomediastinal silhouette is normal in size and configuration. LUNGS: No focal consolidation, pleural effusion, or pneumothorax. ABDOMEN: No remarkable upper abdominal findings. BONES: No acute osseous changes. IMPRESSION: 1. No evidence of acute cardiopulmonary process. MACRO: None Signed by: Bryson Fam 10/31/2024 6:41 PM Dictation workstation: [id number] Normal [facility] XR Chest Single viewon 10-31 1. No evidence of acute cardiopulmonary process. MACRO: None Signed by: Bryson Fam 10/31/2024 6:41 PM Dictation workstation: [id number] [facility] Interpreted By: Bryson Fam, STUDY: XR CHEST 1 VIEW; 10/31/2024 6:32 pm INDICATION: Signs/Symptoms:preop . COMPARISON: None. ACCESSION NUMBER(S): [id number] ORDERING CLINICIAN: IKE STUART FINDINGS: AP radiograph of the chest was provided. CARDIOMEDIASTINAL SILHOUETTE: Cardiomediastinal silhouette is normal in size and configuration. LUNGS: No focal consolidation, pleural effusion, or pneumothorax. ABDOMEN: No remarkable upper abdominal findings. BONES: No acute osseous changes. [facility] Bryson Fam MD - 10/31/2024 Interpreted By: Bryson Fam, STUDY: XR CHEST 1 VIEW; 10/31/2024 6:32 pm INDICATION: Signs/Symptoms:preop . COMPARISON: None. ACCESSION NUMBER(S): [id number] ORDERING CLINICIAN: IKE STUART FINDINGS: AP radiograph of the chest was provided. CARDIOMEDIASTINAL SILHOUETTE: Cardiomediastinal silhouette is normal in size and configuration. LUNGS: No focal consolidation, pleural effusion, or pneumothorax. ABDOMEN: No remarkable upper abdominal findings. BONES: No acute osseous changes. IMPRESSION: 1. No evidence of acute cardiopulmonary process. MACRO: None Signed by: Bryson Fam 10/31/2024 6:41 PM Dictation workstation: [id number] [facility] Work Phone: [facility] Work Phone: XR KNEE RIGHT 4+ VIEWSon XR KNEE RIGHT 4+ VIEWS Interpreted By: Bryson Fam, STUDY: XR TIBIA FIBULA RIGHT 2 VIEWS; XR ANKLE RIGHT 3+ VIEWS; XR KNEE RIGHT 4+ VIEWS; ; 10/31/2024 6:31 pm; 10/31/2024 6:32 pm INDICATION: Signs/Symptoms:pain after injury; Signs/Symptoms:r/o fx. COMPARISON: None. ACCESSION NUMBER(S): [id number]; [id number]; [id number] ORDERING CLINICIAN: NOAH STUART FINDINGS: Four views [...] Bryson Fam 10/31/2024 6:41 PM Dictation workstation: [id number] [facility] XR TIBIA FIBULA RIGHT 2 VIEW Son 10-31-2024 XR TIBIA FIBULA RIGHT 2 VIEWS Interpreted By: Bryson Fam, STUDY: XR TIBIA FIBULA RIGHT 2 VIEWS; XR ANKLE RIGHT 3+ VIEWS; XR KNEE RIGHT 4+ VIEWS; ; 10/31/2024 6:31 pm; 10/31/2024 6:32 pm INDICATION: Signs/Symptoms:pain after injury; Signs/Symptoms:r/o fx. COMPARISON: None. ACCESSION NUMBER(S): [id number]; [id number]; [id number] ORDERING CLINICIAN: NOAH STUART FINDINGS: Four views [...] Bryson Fam 10/31/2024 6:41 PM Dictation workstation: [id number] [facility] XR Tibia and Fibula - right 2 Viewson 10-31-2024 Radiology Study observation (narrative) [facility] Work Phone: Chest PA and Lateralon 03-27 Chest PA and Lateral [facility] Imaging Services [address] [place] [address] [id number] Chest PA and Lateral MR#: [id number] Acct: [id number] Name: JAVED REYES Rep #: [id number] : 1995 M 28 From: Naomi dillon MD PCP: Care Physician,No Primary Status: REG ER Study: Chest PA and Lateral Date of Exam: 03/27/24 Exam# [id number] Ordering Dr: German Zhang DO [id number] HISTORY: Cough. TECHNIQUE: XR Chest 2 Views. [...] German Zhang DO; No Primary Care Physician Civil Engineer In Training: Signed Normal [facility] Emergency Department Summary on 03-27-2024 Emergency Department Summary [facility] Medical Records Department [address] [place] [id number] Emergency Department Summary 03/27/24 MR#: [id number] Acct: [id number] Name: JAVED REYES Rep #: [id number] : 1995 28 From: German Zhang DO [...] Patient denies any fevers or chills. ROS [facility] ED Constitutional Constitutional ED: Denies chills or [...] West Comment on above: Performed By: #### L 3700.3000, L503.0106, L500.4050, L501.5200, L100.0100, L506.1001 #### [facility] [address] [place], [address] M100.678on 03-27-2024 M100.678 Pending SARS-CoV-2 (COVID 19) Negative INFLUENZA A Negative INFLUENZA B Negative RSV PCR Negative Normal [facility] Comment on above: Performed By: #### L 3700.3000, L503.0106, L500.4050, L501.5200, L100.0100, L506.1001 #### [facility] [place], [address] ED NOTEon 09-02-2023 ED NOTE HNO ID: [id number] Author: FLAQUITO CHOI RN Service: Emergency Medicine [...] 2023 TIME: 8:32 PM Normal [facility] ED PROV NOTEon 09-02-2023 ED PROV NOTE HNO ID: [id number] Author: LIBERTAD SALES MD Service: Emergency Medicine [...] 104.3 kg (230 lb) 1.753 m (5' 9") Physical Exam Patient does look as if [...] COVID-19 test performed per [facility] Council policy for suspected COVID community exposure. MDM [...] last few days. 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 Normal [facility] FLUABV+SARS-CoV-2+RSV Pnl Re sp TOMAS+probeon 09-02-2023 FLUABV+SARS-CoV-2+RSV Pnl Resp TOMAS+probe COVID 19 RESULT: Not detected The method used is RT-PCR or an equivalent NAAT method. Reference Range(the expected result in uninfected individuals): Not detected INFLUENZA A PCR: Not detected INFLUENZA B PCR: Not detected RSV PCR: Not detected Normal [facility] Comment on above: Performed By: #### 9 [id number] #### [facility] CLIA [id number] [address] [place], [place] [id number] [facility] Vital Signs Date Time Vital Sign Value Performing Clinician Facility 11-06-2024 15:30-0400 Body temperature 97.3 [degF] Noah Colvin MD Work Phone: [facility] 11-06-2024 15:30-0400 Diastolic blood pressure 75 mm[Hg] Noah Colvin MD Work Phone: [facility] 11-06-2024 15:30-0400 Heart rate 70 /min Noah Colvin MD Work Phone: [facility] 11-06-2024 15:30-0400 Respiratory rate 15 /min Noah Colvin MD Work Phone: [facility] 11-06-2024 15:30-0400 SaO2% (BldA) [Mass fraction] 99 % Noah Colvin MD Work Phone: [facility] 11-06-2024 15:30-0400 Systolic blood pressure 109 mm[Hg] Noah Colvin MD Work Phone: [facility] 10-31-2024 19:12-0400 Body temperature 37 Noah Colvin MD Work Phone: [facility] 10-31-2024 19:05-0400 Body temperature 37.0 degrees Celsius [facility] Comment on above: Performed By: #### [id number] #### MIRANDA Sims ([id number]) [facility] ([facility]) [address] [place] [address] 10-31-2024 16:43-0400 Body height 172.7 cm Noah Colvin MD Work Phone: [facility] 10-31-2024 16:43-0400 Body mass index (BMI) [Ratio] 39.53 kg/m2 Noah Colvin MD Work Phone: [facility] 10-31-2024 16:43-0400 Body weight 117.94 kg Noah Colvin MD Work Phone: [facility] 02-23-2024 21:49-0400 Blood Pressure Location RAQUEL LOAIZA MD [facility] 02-23-2024 21:49-0400 Blood Pressure Method RAQUEL LOAIZA MD [facility] 02-23-2024 21:49-0400 Body height 172.7 cm RAQUEL LOAIZA MD [facility] 02-23-2024 21:49-0400 Body temperature 96.98 [degF] RAQUEL LOAIZA MD [facility] 02-23-2024 21:49-0400 Body weight 104.5 kg RAQUEL LOAIZA MD [facility] 02-23-2024 21:49-0400 Diastolic Blood Pressure Non-Invasive 78 mm[Hg] RAQUEL LOAIZA MD [facility] 02-23-2024 21:49-0400 Heart rate 98 /min RAQUEL LOAIZA MD [facility] 02-23-2024 21:49-0400 Respiratory rate 16 /min RAQUEL LOAIZA MD [facility] 02-23-2024 21:49-0400 Systolic Blood Pressure Non-Invasive 130 mm[Hg] RAQUEL LOAIZA MD [facility] Encounters Encounter Date Encounter Type Care Provider Facility Start: 04-15-2025 ambulatory No Primary Car e Physician Facility:[facility] Start: 03-18-2025 ambulatory No Primary Car e Physician Facility:[facility] Start: 03-12-2025 End: 03-12-2025 Subsequent hospital visit by physician Yesenia Jeff X-Ray 1 [facility] Monalisa Comment on above: Displaced comminuted fracture of shaft of right fibula, subsequent encounter for closed fracture with routine healing; Closed avulsion fracture of medial malleolus of right tibia with routine healing, subsequent encounter Start: 03-12-2025 End: 03-12-2025 Office outpatient visit 25 minutes Blu Castillo PA-C Work Phone: [facility] Monalisa Comment on above: Displaced comminuted fracture of shaft of right fibula, initial encounter for closed fracture (Primary Dx); Closed avulsion fracture of medial malleolus of right tibia with routine healing, subsequent encounter Start: 03-12-2025 End: 03-12-2025 ambulatory [facility] Start: 01-10-2025 ambulatory CALLUM Ferrarii lity:[facility] Start: 12-03-2024 End: 12-03-2024 ambulatory [facility] Start: 12-03-2024 End: 12-03-2024 Postop follow up visit related to original px Blu Castillo CONSTANCE-Bharat Work Phone: Damian Gaytan Comment on above: Displaced comminuted fracture of shaft of right fibula, initial encounter for closed fracture; Closed avulsion fracture of medial malleolus of right tibia, initial encounter Start: 12-03-2024 End: 12-03-2024 Subsequent hospital visit by physician Buffy Anderson X-Ray 2 [facility] Comment on above: Displaced comminuted fracture of shaft of right fibula, initial encounter for closed fracture; Closed avulsion fracture of medial malleolus of right tibia, initial encounter Start: 11-27-2024 ambulatory Shabnam CACERES Facili ty:[facility] Start: 11-27-[address] Shabnam Paez MD -[facility] Start: 11-19-2024 End: 11-19-2024 ambulatory No Primary Care Physician -[facility] Start: 11-19-2024 End: 11-19-[address] Shabnam Paez MD -[facility] Start: 11-19-2024 End: 11-19-2024 ambulatory Shabnam CACERES Facility:[facility] Start: 11-12-2024 ambulatory Shabnam Harpera OLS Facili ty:[facility] Start: 11-12-[address] Shabnam Paez MD -[facility] Start: 11-08-2024 ambulatory Shabnam CACERES Facili ty:[facility] Start: 11-08-[address] Shabnam Paez MD -[facility] Start: 11-07-2024 ambulatory Shabnam CACERES Facili ty:[facility] Start: 11-07-[address] Shabnam Paez MD -[facility] Start: 10-31-2024 End: 11-06-2024 Evaluation and management of inpatient Noah Colvin MD Work Phone: [facility] Candy Byrne 8 Comment on above: Displaced comminuted fracture of shaft of right fibula, initial encounter for closed fracture (Primary Dx); Alcohol use; Insomnia, unspecified type; Cigarette smoker; Drug-induced constipation Start: 10-31-2024 End: 10-31-2024 Emergency department patient visit NOAH COLVIN [facility] Start: 03-27-2024 End: 03-27-2024 Emergency department patient visit No Primary Care Physician Facility:[facility] Start: 02-23-2024 End: 02-23-2024 Emergency department patient visit RAQUEL LOAIZA MD [facility] Start: 09-02-2023 Emergency department patient visit Facility:[facility] Procedures Date Procedure Procedure Detail Performing Clinician Start: 03-12-2025 Radex ankle complete minimum 3 views Blu Castillo PA-C Work Phone: Start: 11-12-2024 Drug screen quantita tive phenobarbital No Primary Care Physician Comment on above: Verified by repeat analysis Detection Limit = 3Performed at: [address] [id number] Director: Kennedy Morse PhD, Phone: [phone] Start: 11-12-2024 Vitamin D, 25-hydrox y measurement No Primary Care Physician Comment on above: Vitamin D StatusDefi ciency: <20 ng/mL (50nmol/L)Insufficiency: 20-30 ng/mL (50-75 nmol/L)Sufficiency: 30-100 ng/mL (75-250 nmol/L)Toxicity: >100 ng/mL (>250 nmol/L) Start: 11-08-2024 Methadone measuremen t, urine No Primary Care Physician Start: 11-03-2024 Blood count complete automated Sushma Lopez PA-C Work Phone: Start: 11-02-2024 Renal function panel Ra garry Leung PA-C Work Phone: Start: 11-01-2024 PULSE OXIMETRY, CONTINUOUS Tyrese Echols DO Work Phone: Start: 11-01-2024 XR [...] f 2) Zoster Vaccines (1 of 2) [facility] Start: 06-11-2025 End: 06-11-2025 Patient encounter procedure 06/11/2025 2:30 PM EST Office Visit [facility] [id number] [address] [facility] 5th [place] [address] [place] [address] Department [place] [address] [facility] Start: 02-04-2025 End: 02-04-2025 Patient encounter procedure 02/04/2025 2:20 PM EDT Office Visit [facility]tan [address] [phone] Blu Castillo PA-C [address] [place] [address] Damian Gaytan Start: 01-28-2025 COVID-19 Vaccine ( season) COVID-19 Vaccine ( season) [facility] Start: 01-28-2025 COVID-19 Vaccine ( season) COVID-19 Vaccine ( season) [facility] Start: 01-28-2025 [facility] Start: 12-28-2024 Influenza vaccination Influenza Vacc ine (#1) [facility] Start: 11-20-2024 End: 11-20-2024 Patient encounter procedure 11/20/2024 1:00 PM EDT Office Visit [facility] [address] [address] [facility] [address] [place] [address] Blu Castillo PA-C [id number] [address] Department of Orthopedics [place] [id number] [facility] Start: 01-29-2024 COVID-19 Vaccine ( season) COVID-19 Vaccine ( season) [facility] Start: 07-13-2020 Pneumococcal Vaccine : Pediatrics and At-Risk Adult Patients (2 of 2 - PCV) Pneumococcal Vaccine: Pediatrics and At-Risk Adult Patients (2 of 2 - PCV) [facility] Start: 2020 HPV Vaccines (1 - 3-dose standard series) HPV Vaccines (1 - 3-dose standard series) [facility] Start: 2015 DTaP/Tdap/Td Vaccine s (1 - Tdap) DTaP/Tdap/Td Vaccines (1 - Tdap) [facility] Start: 2012 Hepatitis B Vaccines (1 of 3 - 19+ 3-dose series) Hepatitis B Vaccines (1 of 3 - 19+ 3-dose series) [facility] Start: 2011 Hepatitis C screening Hepatitis C [facility] Start: 2006 Varicella vaccination Varicell a Vaccines (1 of 2 - 13+ 2-dose series) [facility] Start: 1994 MMR Vaccines (1 of 1 - Standard series) MMR Vaccines (1 of 1 - Standard series) [facility] Start: 1993 HIV screening HIV Screening [facility] Start: 1993 Lipid panel Lipid Panel [facility] Start: 1993 Yearly Adult Physical Yearly Adult P hysical [facility] Electrocardiogram, 12-lead PRN ACS symptoms Electrocardiogram, 12-lead PRN ACS symptoms ECG Routine As needed until discontinued starting 11/01/2024 [facility] Work Phone: Comment on above: As needed until disc ontinued starting 11/01/2024 End: 11-01-2024 Incentive spirometry Instruct Incentive spirometry Instruct Respiratory Care Routine Once for 1 Occurrences starting 11/01/2024 until 11/01/2024 [facility] Service Area Work Phone: Comment on above: Once for 1 Occurrenc es starting 11/01/2024 until 11/01/2024 End: 12-03-2024 XR Ankle - right 3 Views [facility] Service Area Work Phone: Comment on above: Once for 1 Occurrenc es starting 12/03/2024 until 12/03/2024 Payers Date Payer Category Payer Medicaid (Managed Care) [facility] [id number] 2024 Medicaid [id number] 2024 Unknown [id number] 2024 Self-pay 1997 Unknown [id number] 1993 Unknown [id number] [id number]. 627 1993 Unknown [id number] 2.16.840.1.171779.3.579.2. 1242 1993 Unknown [id number] 2.16.840.1.489745.3.579.2. 1242 1993 Unknown [id number] 2.16.840.1.858942.3.579.2. 594 1993 Unknown [id number] 2.16.840.1.267707.3.579.2. 1245 1993 Unknown [id number] 2.16.840.1.243092.3.579.2. 1245 1993 Unknown [id number] 2.16.840.1.780897.3.579.2. 1245 1993 Unknown [id number] 2.16.840.1.440478.3.579.2. 1245 Unknown [id number] 2.16.840.1.501864.3.579.2. 462 Unknown [id number] 2.16.840.1.161220.3.579.2. 462 Unknown [id number] 2.16.840.1.553829.3.579.2. 462 Unknown [id number] 2.16.840.1.826368.3.579.2. 462 Unknown [id number] 2.16.840.1.382660.3.579.2. 462 Unknown [id number] 2.16.840.1.951174.3.579.2. 462 Unknown [id number] 2.16.840.1.943258.3.579.2. 462 Unknown [id number] 2.16.840.1.629370.3.579.2. 462 Social History Date Type Detail Facility Start: 02-23-2024 Tobacco smoking status Light tobacco smoker (finding) [facility] Megan Lee Start: 1995 Sex Assigned At Male [facility] Start: 11-01-2024 Tobacco smoking status NHIS Smokes tobacco daily [facility] History of tobacco use [facility] Start: 11-01-2024 Tobacco use and exposure Smokeless tobacco non-user [facility] Work Phone: Start: 11-01-2024 End: 03-12-2025 Alcoholic beverage intake Current drinker of alcohol (finding) [facility] Work Phone: Start: 11-01-2024 End: 11-02-2024 History of Social function [facility] Start: 11-01-2024 End: 11-02-2024 C [employer] [facility] Has the [employer], or [employer] threatened to shut off services in your home in past 12Mo Yes [facility] Within the last year , have you been afraid of your partner or ex-partner? No [facility] Work Phone: How often to you hav e a drink containing alcohol? 4 or more times a week [facility] Work Phone: How many standard dr inks containing alcohol do you have on a typical day? 7 to 9 [facility] Work Phone: How often do you hav e 6 or more drinks on 1 occasion? Weekly [facility] Work Phone: How hard is it for y ou to pay for the very basics like food, housing, medical care, and heating Not very hard [facility] (I/We) worried pablo er (my/our) food would run out before (I/we) got money to buy more. Often true [facility] Work Phone: In the past 12 month s, has lack of transportation kept you from medical appointments or from getting medications? No [facility] Work Phone: Start: 10-31-2024 Gender identity Identifies as male gender (finding) [facility] Work Phone: Start: 10-22-2024 End: 11-01-2024 Exposure to SARS-CoV-2 (event) Not sure [facility] Work Phone: Start: 03-27-2024 Tobacco smoking status NHIS Current some day smoker [facility] Start: 05-02-2019 Alcohol Alcohol [facility] Start: 05-02-2019 Drugs Drugs [facility] Start: 05-02-2019 Lives Lives [facility] Start: 05-02-2019 Tobacco Use Tobacco Use [facility] Start: 10-31-2024 Sex Male (finding) [facility] Medical Equipment Procedure Code Equipment Code Equipment Origin al Text Equipment Identifier Dates Device, Syndemos is Fixation, [place] Synchfix P5 - [id number] Start: 11-01-2024 Device, Syndemos is Fixation, [place] Synchfix P5 - [id number] Start: 11-01-2024 Plate, Fibula, Distal Lateral, 2.7/3.5mm 137mm 8h, Right - [id number] Start: 11-01-2024 Screw, Cortex 2. 7mm, T8, 20mm - [id number] Start: 11-01-2024 Screw, Cortex 2. 7mm, T8, 16mm - [id number] Start: 11-01-2024 Screw, Cortex 2. 7mm, T8, 22mm - [id number] Start: 11-01-2024 Screw, Cory 3.5 X 14 Ti - [id number] Start: 11-01-2024 Screw, Cory 3.5 X 16 Ti - [id number] Start: 11-01-2024 Screw, Cory 3.5 X 18 Ti - [id number] Start: 11-01-2024 Screw, Locking, 2.7mm, T8, 8mm - [id number] Start: 11-01-2024 Screw, Locking, 2.7mm, T8, 12mm - [id number] Start: 11-01-2024 Screw, Locking, 2.7mm, T8, 16mm - [id number] Start: 11-01-2024 Functional Status Date Assessment Result Facility 03-12-2025 Functional status [facility] 03-12-2025 [facility] Work Phone: 11-01-2024 Total score [AUDIT-C] 025 6:42 PM EDT Emily Fernandez RN [facility] Work Phone: 11-01-2024 Patient Health Questionnaire 2 item (PHQ-2) [Reported] [facility] Work Phone: 10-31-2024 [place] - suicide s everity rating scale screener - recent [C-SSRS] [facility] Work Phone: 02-23-2024 Functional Status Assistive Device None [facility] 02-23-2024 Functional Status Standard Safet y ID band on, Allergy Band on, Call device within reach, Bed in low position, Wheels locked, personal items within reach, Bedside Cart Locked, Visitor at bedside [facility] Work Phone: Mental Status Date Assessment Result Facility 02-23-2024 Mental Status Orientation Oriented x 4 [facility] 02-23-2024 Mental Status [facility] Clinical Notes 02-23-2024 to 03-12-2025 Blu Castillo PA-C - 03/12/2025 2:20 PM Sophie Castillo PA-C - 12/03/2024 2:20 PM Nitish Jean-Baptiste RN - 11/06/2024 4:19 PM Nitish Jean-Baptiste RN - 11/06/2024 4:19 PM EDTDischarge Instructions Note Date & Type Note Facility 03-12-2025 History of Presen t illness Narrative Subjective Patient ID: Javed Reyes is a 29 y.o. male. Chief Complaint: Post-op of the Right Ankle (POV Right Ankle ORIF SR11/01/24) Last Surgery: ORIF of right lateral malleolus and syndesmosis Last Surgery Date: 11/01/2024 Right Ankle Patient is a 29 y.o. male who is s/p ORIF of right lateral malleolus and syndesmosis. Date of surgery was 11/01. Patient is weight bearing as tolerated on the right leg with a CAM boot. States that he is back to work and is on his feet for 8 hours a day. Patients ankle and foot is really swollen, but will elevate when he is home. Patient does home exercise program. Patient denies fever or chills, N/T or calf pain. ROS: All other systems have been reviewed and are negative except as previously noted in history of present illness. IMP: Problem List Items Addressed This Visit Displaced comminuted fracture of shaft of right fibula, initial encounter for closed fracture - Primary Relevant Medications meloxicam (Mobic) 15 mg tablet Other Relevant Orders Referral to Pain Management Avulsion fracture of medial malleolus of right tibia Relevant Medications meloxicam (Mobic) 15 mg tablet Objective General: Alert and oriented x 3, NAD, respirations easy and unlabored with no audible wheezes, skin warm and dry, speech and dress appropriate for noted age, affect euthymic. Musculoskeletal: Right Lower Extremity incisions well healed mild swelling to lower leg compartments soft no calf tenderness sensation intact to light touch motor intact including TA/GS/EHL palpable DP/PT pulses 2+ X-ray: Images of right ankle reviewed personally by me today and reveal maintenance of alignment of lateral malleolus ankle fracture with hardware in position and interval fracture line healing. Assessment/Plan Encounter Diagnoses: Displaced comminuted fracture of shaft of right fibula, initial encounter for closed fracture Closed avulsion fracture of medial malleolus of right tibia with routine healing, subsequent encounter PLAN: Patient is s/p ORIF of right lateral malleolus and syndesmosis. Patient overall is doing well. Patient is weight bearing as tolerated on the right leg with a CAM boot. States that he is back to work and is on his feet for 8 hours a day. Patients ankle and foot is really swollen, but will elevate when he is home. Patient does home exercise program. Imaging reveals alignment of right lateral malleolus ankle fracture with stable hardware and interval fracture line healing. Patient is educated that swelling can occur up to 1 year from surgery and can worsen when on their feet for long periods of time. Educated to ice and elevate to help with swelling. Meloxicam was given to help with pain and swelling. He will continue to weight bear and can transition to a regular shoe. Patient is given a referral to pain management to help with pain control. Patient will follow up in 3 months. Xrays of the right ankle will be needed. Orders Placed This Encounter Referral to Pain Management meloxicam (Mobic) 15 mg tablet No follow-ups on file. documented in this encounter [facility] Work Phone: 12-03-2024 History of Presen t illness Narrative Subjective Patient ID: Javed Reyes is a 29 y.o. male. Chief Complaint: Post-op of the Right Ankle (POV Right Ankle ORIF SR11/01/24) Last Surgery: ORIF of right lateral malleolus and syndesmosis Last Surgery Date: 11/01/2024 HPI Patient is a 29 y.o. male who is s/p ORIF of right lateral malleolus and syndesmosis. Date of surgery was 11/01. Patient continues to be non weight bearing on the right leg at this time and denies issues with incision. Patient continues on ASA for DVT ppx. Patient continues with therapy sessions at rehab facility. Patient denies fever or chills, N/T or calf pain. ROS: All other systems have been reviewed and are negative except as previously noted in history of present illness. IMP: Problem List Items Addressed This Visit Displaced comminuted fracture of shaft of right fibula, initial encounter for closed fracture - Primary Relevant Orders XR ankle right 3+ views (Completed) Walking boot Avulsion fracture of medial malleolus of right tibia Relevant Orders XR ankle right 3+ views (Completed) Walking boot Objective General: Alert and oriented x 3, NAD, respirations easy and unlabored with no audible wheezes, skin warm and dry, speech and dress appropriate for noted age, affect euthymic. Musculoskeletal: Right Lower Extremity incisions c/d/i mild swelling to lower leg compartments soft no calf tenderness sensation intact to light touch motor intact including TA/GS/EHL palpable DP/PT pulses 2+ X-ray: Images of right ankle reviewed personally by me today and reveal maintenance of alignment of lateral malleolus ankle fracture with hardware in position and no interval change. Assessment/Plan Encounter Diagnoses: Displaced comminuted fracture of shaft of right fibula, initial encounter for closed fracture Closed avulsion fracture of medial malleolus of right tibia, initial encounter PLAN: Patient is s/p ORIF of right lateral malleolus and syndesmosis. Sutures were removed at this visit. Patient overall is doing well. Patient is non weight bearing on the right leg at this time. He is currently working with PT at acute rehab. Imaging reveals alignment of right lateral malleolus ankle fracture with stable hardware. Patient is educated that he will be nonweight bearing on the right leg until December 27. He is given a CAM boot and should only wear the boot at night and when up and moving around. Patient should continue to work with PT on ankle and knee ROM, quad strengthening, and gait training, and eventual weight bearing. Patient is given a referral to pain management to help with pain control. Patient will follow up in 3 months. Xrays of the right ankle will be needed. Orders Placed This Encounter Walking boot XR ankle right 3+ views No follow-ups on file. documented in this encounter [facility] Work Phone: 11-06-2024 Nurse Note Patient has been discharged to [facility] via community care ambulance. Vitals stable, all IV's removed and after visit summary reviewed with patient. [facility] 11-06-2024 Nurse Note Patient has been discharged to [facility] via community care ambulance. Vitals stable, all IV's removed and after visit summary reviewed with patient. documented in this encounter [facility] Work Phone: 11-06-2024 Hospital course Narrative [...] cleared for OR by trauma. Admitted to [facility]. Taken to OR on 11/01 [...] Time Provider Department Center 11/20/2024 1:00 PM Blu Castillo PA-C [id number] [facility] Leung PA-C documented in this encounter [facility] Work Phone: 11-06-2024 Plan of care note The patient's goals for the shift include The clinical goals for the shift include remain free from falls [facility] Work Phone: 11-06-2024 Miscellaneous Notes The patient's goals for the shift include The clinical goals for the shift include remain free from falls The patient's goals for the shift include The clinical goals for the shift include pain control CHW met with patient at bedside, Patient stated that he is interested in community resources in [facility], Patient stated he received out to a facility for rehab [place] near his area after discharge. CHW provided a [facility] resources to assist with food housing financial assistance etc, [employer] for guidances and support, Patient mentioned applying for disability. CHW provided disability resources information, including steps on how to apply online. CHW also provided the rehab center patient is interested contact information. Community Resource Name: Phone Number: Staff Member: Discussed the following topics on behalf of the patient: [] Behavioral Health Assistance [] Case Management [] Paint Grinder Assistance [] Digital Equity Assistance [] Dental [...] [x] Other: [insert comment here] Next Steps: Akeya M Forts, CCHW The patient's goals for the shift include [...] Goal: Promote/optimize nutrition Outcome: Progressing Flowsheets (Taken 11/02/2024 021) Promote/optimize nutrition: Assist with feeding Monitor/record intake [...] cleared for OR by trauma. Admitted to [facility]. Taken to OR on 11/01 [...] will sign off. documented in this encounter [facility] Work Phone: 11-06-2024 History of Presen t illness Narrative Transitional Manager People Note: Patient discussed with medical team (trauma PA), per trauma team patient is medically ready. Discharge dispo: Plan for patient to discharge to SNF. TCC met with patient introduced self and role to discuss discharge plan. TCC informed patient that he was accepted by [facility] and able to discharge to facility. Patient expressed wanting to discharge [facility] stating he wants to be in [facility] near his friends. TCC informed patient there has not been an official acceptance from [facility]. Patient requested for TCC to follow up with facility stating he spoke with facilities admit team who stated facility is able to accept patient. TCC sent updated clinicals to patient's [facility] and requested update on acceptance. Yeny Tomas RN BSN Transitional Manager People [facility] TRAUMA SERVICE - PROGRESS NOTE Patient [...] syndesmotic fixation 11/01 - NWB RLE in [facility] - follow up 2 weeks with [...] processes, explaining results of diagnostic testing. Anna Leung PA-C Trauma, Critical Care, Acute Care Surgery Floor: 06101 TSICU: [id number] CHIEF COMPLAINT / OVERNIGHT EVENTS: No acute [...] days Lab Units 11/03/24 1110 11/02/24 0811/01/24 1113 10/31/24 1905 WBC AUTO x10*3/uL 8.0 [...] Results from last 7 days Lab Units 11/02/2481711/01/24 11110/31/24 1905 SODIUM mmol/L 138 137 135* [...] results, and imaging pertinent for today's encounter. [facility] TRAUMA SERVICE - PROGRESS NOTE Patient [...] syndesmotic fixation 11/01 - NWB RLE in [facility] - follow up 2 weeks with [...] processes, explaining results of diagnostic testing. Anna Leung PA-C Trauma, Critical Care, Acute Care Surgery Floor: 31050 TSICU: [id number] CHIEF COMPLAINT / OVERNIGHT EVENTS: No acute [...] wiggle toes. Dorsi/plantarflexion 5/5 left lower extremity. Supervisor Phosphoric Acid strength 5/5 bilaterally. sensation intact throughout all [...] or note in Epic regarding referral to [facility]. Pt was updated regarding this agency for those who need medical care and in a housing crisis. Objective Physical Exam Assessment & Plan SW will continue to follow pt for a safe discharge. SW will update Trauma Team regarding pt's pain and feelings about needing PT. CHRISTINE VARGAS [facility] TRAUMA SERVICE - PROGRESS NOTE Patient [...] syndesmotic fixation 11/01 - NWB RLE in [facility] - follow up 2 weeks with [...] processes, explaining results of diagnostic testing. Anna Leung PA-C Trauma, Critical Care, Acute Care Surgery Floor: 15579 TSICU: [id number] CHIEF COMPLAINT / OVERNIGHT EVENTS: No acute [...] lower extremity. Dorsi/plantarflexion 5/5 left lower extremity. Supervisor Phosphoric Acid strength 5/5 bilaterally. sensation intact throughout all [...] were you homeless or living in a nursing home (including now)? Y Transportation Needs In the [...] PCP: NONE DME: none previously Pharmacy: none STEAMBOAT INSPECTOR spoke with the patient on this date. Patient is homeless and hopping from couch to couch. Patient came in due to a displaced right fibula fracture. PT saw and recommended no needs. PT explained that patient is nonweight bearing to the right leg but is doing well on the walker. STEAMBOAT INSPECTOR explained that this STEAMBOAT INSPECTOR can order a walker for the patient. Patient explained that hed be interested in going to a physical rehab at discharge. STEAMBOAT INSPECTOR explained that she could send out some referrals but that she cannot guarantee he will be accepted due to his age and the fact he doesn't have PT or OT needs. STEAMBOAT INSPECTOR texted patient an [place] and SNF list. Patient also agreed to blanket referral. Patient confirmed he would find a place to say if he cannot go to SNF or [place]. Patient tested positive for cocaine and cannibis. STEAMBOAT INSPECTOR spoke with him about it. 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 STEAMBOAT INSPECTOR offered substance abuse resources or a referral to [facility], Patient explained that he doesn't not think he needs any resources and that he will just stop cold turkey. STEAMBOAT INSPECTOR will continue to follow ADD 11/02/24 2:59PM STEAMBOAT INSPECTOR attempted to call patient again to discuss alternate discharge plans besides SNF/[place] since patient doesn't have therapy needs. STEAMBOAT INSPECTOR was unable to reach patient via phone. STEAMBOAT INSPECTOR spoke with patient's PA about making a [facility]' referral for the patient. STEAMBOAT INSPECTOR will continue to follow LISA Mims, LAUREN-S Occupational Therapy Evaluation Patient Name: Javed Reyes Today's Date: 11/02/2024 Room: [address] [place] [address] Time Calculation Start Time: 930 Stop Time: [...] Adaptive Equipment: None Prior Function: Level of [place]: Independent with ADLs and functional transfers, Independent [...] Within Functional Limits, , and Outcome Measures: [facility] Daily Activity Putting on and taking off [...] 10:35 AM Moshe Mclain OT Rehab Office: [phone] Physical Therapy Physical Therapy Evaluation Patient Name: Javed Reyes Department: [place] [address] Room: [address] [place] [address] Today's Date: 11/02/2024 Time Calculation Start Time: [...] Prior Function Per Pt/Caregiver Report Level of [place]: Independent with ADLs and functional transfers ADL [...] compensate.) Comments/Distance (ft) 1: 20ft Outcome Measures: [facility] Basic Mobility Turning from your back to [...] for closed fracture. Pharmacy reviewed the patient's xmbke-as-rpywbfxmb medications and allergies for accuracy. Medications ADDED: None Medications CHANGED: None Medications REMOVED: None The list below reflects the updated PIPE COREMAKER list. None The list below reflects the [...] any prescription medications, vitamins, supplements or OTCs PIPE COREMAKER Anupam Ellis PharmD Transitions of Care Pharmacist 11/02/24 Secure Chat preferred If no response call [phone] or Vocera "Med Rec" [facility] TRAUMA SERVICE - PROGRESS NOTE Patient [...] syndesmotic fixation 11/01 - NWB RLE in [facility] - follow up 2 weeks with [...] processes, explaining results of diagnostic testing. Anna Leung PA-C Trauma, Critical Care, Acute Care Surgery Floor: 30677 TSICU: [id number] CHIEF COMPLAINT / OVERNIGHT EVENTS: No acute [...] 2/5 strength. Dorsi/plantarflexion 5/5 left lower extremity. Supervisor Phosphoric Acid strength 5/5 bilaterally. sensation intact throughout all [...] results, and imaging pertinent for today's encounter. [facility] TRAUMA SERVICE - PROGRESS NOTE Patient [...] [14-22] BP: (118-152)/(73-95) Height: [172.7 cm (5' 8")] Weight: [118 kg (260 lb)] SpO2: [95 [...] during my rounds. documented in this encounter [facility] Work Phone: 11-05-2024 Plan of care note The patient's goals for the shift include The clinical goals for the shift include pain control [facility] 11-05-2024 Plan of care note CHW met with patient at bedside, Patient stated that he is interested in community resources in [facility], Patient stated he received out to a facility for rehab [place] near his area after discharge. CHW provided a [facility] resources to assist with food housing financial assistance etc, [employer] for guidances and support, Patient mentioned applying for disability. CHW provided disability resources information, including steps on how to apply online. CHW also provided the rehab center patient is interested contact information. Community Resource Name: Phone Number: Staff Member: Discussed the following topics on behalf of the patient: [] Behavioral Health Assistance [] Case Management [] Paint Grinder Assistance [] Digital Equity Assistance [] Dental [...] MARIA DE JESUS Foster [facility] 11-05-2024 Plan of care note The [...] nutritional needs Outcome: Progressing [facility] 11-02-2024 Plan of care note The patient's goals for the shift include The clinical goals for the shift include Pt pain will be contolled [facility] 11-02-2024 Hospital Discharg e instructions Ivelisse [...] orthopaedic clinic appointment line phone number is [phone]. Please do not delay in calling to [...] become infected. Alternatively, you may blow a humanities department chair, on the cool air setting, [...] an emergent evaluation. documented in this encounter [facility] Work Phone: 11-02-2024 Plan of care [...] line(s)/device(s) Turn/reposition every 2 hours/use positioning/transfer devices [facility] 11-01-2024 Hospital Note Formatting of t [...] cleared for OR by trauma. Admitted to [facility]. Taken to OR on 11/01 for R ankle ORIF. Patient to follow up outpatient in [address] Stuart. PT/OT worked with patient while admitted, pt discharged to SNF at time of discharge. Pt sent with scripts and meds continued, follow up appointments placed. Pain well controlled, eating and drinking well. Pt verbalized understanding of discharge instructions. [facility] Work Phone: 11-01-2024 investments manager Note Neurology Final Assessment and Plan: [...] provided per primary. Neurology will sign off. [facility] Work Phone: 11-01-2024 Consult note Formatting [...] the last several days he has been "binge drinking "20 beers on average per day as well [...] the sun and felt very hot and "woozy "he then entered the restaurant again at which time he felt extremely lightheaded as if he was going to pass out with some mild heart palpitations after which time he lost consciousness. He woke up briefly on the floor after what he was told was a few seconds to minutes the [employer]ark advanced operator maintainer was present and at his side with [...] given rapid COORDINATION: In both upper extremities, rtjtss-ijpl-jspyjt was intact without dysmetria or overshoot. GAIT: Deferred gait given ankle injury Last Recorded Vitals Blood pressure 133/78, pulse 88, temperature 37.2 C (98.9 F), temperature source Temporal, resp. rate 16, height 1.727 m (5' 8"), weight 118 kg (260 lb), SpO2 97%. [...] Horacio Loera. This study was interpreted at [place], [place]. MACRO: None. Signed by: Julián Mendez 11/01/2024 1:14 AM Dictation workstation: [id number] CT lumbar spine retrospective reconstruction protocol Result Date: 11/01/2024 CT CHEST/ABDOMEN/PELVIS: *No acute traumatic injury. CT THORACIC AND LUMBAR SPINE: *No acute fracture or traumatic malalignment. I personally reviewed the images/study and I agree with the findings as stated by resident Horacio Loera. This study was interpreted at [place], [place]. MACRO: None. Signed by: Julián Mendez 11/01/2024 1:14 AM Dictation workstation: [id number] CT thoracic spine retrospective reconstruction protocol Result Date: 11/01/2024 CT CHEST/ABDOMEN/PELVIS: *No acute traumatic injury. CT THORACIC AND LUMBAR SPINE: *No acute fracture or traumatic malalignment. I personally reviewed the images/study and I agree with the findings as stated by resident Horacio Loera. This study was interpreted at [place], [place]. MACRO: None. Signed by: Julián Mendez 11/01/2024 1:14 AM Dictation workstation: [id number] CT cervical spine wo IV contrast Result Date: 11/01/2024 1. No acute fracture or traumatic malalignment of the cervical spine. I personally reviewed the images/study and resident's interpretation and I agree with the findings as stated by Anisa Mena MD (resident radiologist). This study was analyzed and interpreted at [place], [place]. MACRO: None. Signed by: Julián Mendez 11/01/2024 1:04 AM Dictation workstation: [id number] CT ankle right wo IV contrast Result [...] Horacio Loera. This study was interpreted at [place], [place]. MACRO: None Signed by: Julián Mendez 10/31/2024 11:31 PM Dictation workstation: [id number] CT head wo IV contrast Result Date: 10/31/2024 CT HEAD: *No acute intracranial abnormality or calvarial fracture. I personally reviewed the images/study and I agree with the findings as stated by resident Horacio Loera. This study was interpreted at [place], [place]. MACRO: None. Signed by: Julián Mendez 10/31/2024 10:31 PM Dictation workstation: [id number] XR ankle right 3+ views Result Date: 10/31/2024 *Comminuted fibula fracture with similar alignment compared to prior imaging. Previously described medial malleolus avulsion fracture is not well visualized, likely obscured by overlying cast material. I personally reviewed the images/study and I agree with the findings as stated by resident Horacio Loera. This study was interpreted at [place], [place]. MACRO: None Signed by: Julián Mendez 10/31/2024 10:25 PM Dictation workstation: [id number] XR chest 1 view Result Date: 10/31/2024 1. No evidence of acute cardiopulmonary process. MACRO: None Signed by: Bryson Fam 10/31/2024 6:41 PM Dictation workstation: [id number] XR ankle right 3+ views Result Date: 10/31/2024 Comminuted distal fibular fracture with additional medial malleolar avulsion injury. Suspected medial clear space widening. No evidence of syndesmotic widening. MACRO: None Signed by: Bryson Fam 10/31/2024 6:41 PM Dictation workstation: [id number] XR tibia fibula right 2 views Result Date: 10/31/2024 Comminuted distal fibular fracture with additional medial malleolar avulsion injury. Suspected medial clear space widening. No evidence of syndesmotic widening. MACRO: None Signed by: Bryson Fam 10/31/2024 6:41 PM Dictation workstation: [id number] XR knee right 4+ views Result Date: 10/31/2024 Comminuted distal fibular fracture with additional medial malleolar avulsion injury. Suspected medial clear space widening. No evidence of syndesmotic widening. MACRO: None Signed by: Bryson Fam 10/31/2024 6:41 PM Dictation workstation: [id number] Cardiology, Vascular, and Other Imaging ECG 12 [...] note dated 11/01 for our detailed recommendations. [facility] Work Phone: 11-01-2024 Consult note Formatting [...] the last several days he has been "binge drinking "20 beers on average per day as well as frequently using cocaine and marijuana and tobacco. Today he reports his [facility] and he went to visit afterwards he stopped the [employer] for lunch and had 2 beers which he states were the only beers he had today. While waiting for his friend to pick him up he stayed outside in the sun and felt very hot and "woozy "he then entered the restaurant again at which time he felt extremely lightheaded as if he was going to pass out with some mild heart palpitations after which time he lost consciousness. He woke up briefly on the floor after what he was told was a few seconds to minutes the seamark advanced operator maintainer was present and at his side with [...] given rapid COORDINATION: In both upper extremities, gsyrpo-flwv-cztitl was intact without dysmetria or overshoot. GAIT: Deferred gait given ankle injury Last Recorded Vitals Blood pressure 133/78, pulse 88, temperature 37.2 C (98.9 F), temperature source Temporal, resp. rate 16, height 1.727 m (5' 8"), weight 118 kg (260 lb), SpO2 97%. [...] Horacio Loera. This study was interpreted at [place], [place]. MACRO: None. Signed by: Julián Mendez 11/01/2024 1:14 AM Dictation workstation: [id number] CT lumbar spine retrospective reconstruction protocol Result Date: 11/01/2024 CT CHEST/ABDOMEN/PELVIS: *No acute traumatic injury. CT THORACIC AND LUMBAR SPINE: *No acute fracture or traumatic malalignment. I personally reviewed the images/study and I agree with the findings as stated by resident Horacio Loera. This study was interpreted at [place], [place]. MACRO: None. Signed by: Julián Mendez 11/01/2024 1:14 AM Dictation workstation: [id number] CT thoracic spine retrospective reconstruction protocol Result Date: 11/01/2024 CT CHEST/ABDOMEN/PELVIS: *No acute traumatic injury. CT THORACIC AND LUMBAR SPINE: *No acute fracture or traumatic malalignment. I personally reviewed the images/study and I agree with the findings as stated by resident Horacio Loera. This study was interpreted at [place], [place]. MACRO: None. Signed by: Julián Mendez 11/01/2024 1:14 AM Dictation workstation: [id number] CT cervical spine wo IV contrast Result Date: 11/01/2024 1. No acute fracture or traumatic malalignment of the cervical spine. I personally reviewed the images/study and resident's interpretation and I agree with the findings as stated by Anisa Mena MD (resident radiologist). This study was analyzed and interpreted at [place], [place]. MACRO: None. Signed by: Julián Mendez 11/01/2024 1:04 AM Dictation workstation: [id number] CT ankle right wo IV contrast Result [...] Horacio Loera. This study was interpreted at [place], [place]. MACRO: None Signed by: Julián Mendez 10/31/2024 11:31 PM Dictation workstation: [id number] CT head wo IV contrast Result Date: 10/31/2024 CT HEAD: *No acute intracranial abnormality or calvarial fracture. I personally reviewed the images/study and I agree with the findings as stated by resident Horacio Loera. This study was interpreted at [place], [place]. MACRO: None. Signed by: Julián Mendez 10/31/2024 10:31 PM Dictation workstation: [id number] XR ankle right 3+ views Result Date: 10/31/2024 *Comminuted fibula fracture with similar alignment compared to prior imaging. Previously described medial malleolus avulsion fracture is not well visualized, likely obscured by overlying cast material. I personally reviewed the images/study and I agree with the findings as stated by resident Horacio Loera. This study was interpreted at [place], [place]. MACRO: None Signed by: Julián Mendez 10/31/2024 10:25 PM Dictation workstation: [id number] XR chest 1 view Result Date: 10/31/2024 1. No evidence of acute cardiopulmonary process. MACRO: None Signed by: Bryson Fam 10/31/2024 6:41 PM Dictation workstation: [id number] XR ankle right 3+ views Result Date: 10/31/2024 Comminuted distal fibular fracture with additional medial malleolar avulsion injury. Suspected medial clear space widening. No evidence of syndesmotic widening. MACRO: None Signed by: Bryson Fam 10/31/2024 6:41 PM Dictation workstation: [id number] XR tibia fibula right 2 views Result Date: 10/31/2024 Comminuted distal fibular fracture with additional medial malleolar avulsion injury. Suspected medial clear space widening. No evidence of syndesmotic widening. MACRO: None Signed by: Bryson Fam 10/31/2024 6:41 PM Dictation workstation: [id number] XR knee right 4+ views Result Date: 10/31/2024 Comminuted distal fibular fracture with additional medial malleolar avulsion injury. Suspected medial clear space widening. No evidence of syndesmotic widening. MACRO: None Signed by: Bryson Fam 10/31/2024 6:41 PM Dictation workstation: [id number] Cardiology, Vascular, and Other Imaging ECG 12 [...] our detailed recommendations. documented in this encounter [facility] Work Phone: 10-31-2024 History and physical note [facility] TRAUMA SERVICE - HISTORY AND PHYSICAL [...] provider name, time): ortho Dispo: Admit to [facility] for PT/OT Pt seen and [...] Trauma, Critical Care, Acute Care Surgery Floor: 74561 TSICU: [id number] ======== PAST MEDICAL HISTORY: PMH: denies, one [...] the right; 2+ on the left. Disability [place] Coma Score Eye:4 Verbal:5 Motor:6 15 Pupils Right Pupil: round and reactive Left Pupil: round and reactive Motor Strength Supervisor Phosphoric Acid strength: 5/5 on the right 5/5 on [...] surgery. Appreciate neurology consult. Ganga Castellano DO [facility] Work Phone: 10-31-2024 History and physical note [facility] TRAUMA SERVICE - HISTORY AND PHYSICAL [...] provider name, time): ortho Dispo: Admit to [facility] for PT/OT Pt seen and [...] Trauma, Critical Care, Acute Care Surgery Floor: 62832 TSICU: [id number] ======== PAST MEDICAL HISTORY: PMH: denies, one [...] the right; 2+ on the left. Disability [place] Coma Score Eye:4 Verbal:5 Motor:6 15 Pupils Right Pupil: round and reactive Left Pupil: round and reactive Motor Strength Supervisor Phosphoric Acid strength: 5/5 on the right 5/5 on [...] Ganga Castellano DO documented in this encounter [facility] Work Phone: 10-31-2024 Emergency department Note [...] the patient's care: As documented above in [facility] The patient was discussed with the following consultants/services: None Care Considerations: As documented above in [facility] ED Course: ED Course as of [...] and have them evaluate the patient. [RS] 1923 ECG 12 lead EKG personally interpreted by [...] and discussed with ED attending physician. Patrick Pooel DPM Emergency Medicine Patrick Poole DPM Resident [...] right ankle pain documented in this encounter [facility] Work Phone: 10-31-2024 Physician Emergency department [...] None Care Considerations: As documented above in [facility] ED Course: ED Course as of [...] 11/01/24 0135 Patrick Poole DPM Resident 11/01/24 180 The patient was seen by the resident/fellow. I have personally performed a substantive portion of the encounter. I have seen and examined the patient; agree with the workup, evaluation, MDM, management and diagnosis. The care plan has been discussed with the resident; I have reviewed the resident s note and agree with the documented findings. Noah Colvin MD 11/06/24442 [facility] Work Phone: 10-31-2024 Emergency department Triage [...] is also c/o right ankle pain [facility] Work Phone: 02-24-2024 Hospital Discharg e [...] until the rash is all gone. Use qett-dpd-sopszep antifungal powders or sprays on your feet [...] Pus draining from cracks in the skin [id number] [employer]. [address] [place] [address], [place] [id number]. All rights reserved. This information is not [...] Boil returns when you are at home [phone] [employer]. [address] [place] [address]. All rights reserved. This information is not intended as a substitute for professional medical care. Always follow your healthcare professional's instructions. Follow Up Care 02/23/2024 21:43:59 With:Call KRISTA Rodriguez Pt. Refferral [phone] Address:Unknown When:2-4 days [facility] 02-23-2024 Note Discharge Instructions Thank you for allowing [facility] to assist you with your healthcare needs. The following is important discharge information regarding your hospital visit. What to Do Next Instructions from Your Care Team No qualifying data available. Post Acute Orders No qualifying data available. You Need to Schedule the Following Appointments Follow Up with Call KRISTA Rodriguez Pt. Refferral [phone] When:Within 2-4 days Allergies Cats Dust Medications [...] may report side effects to FDA at 6-389-IKP-9313. What other drugs will affect butenafine topical? Medicine used on the skin is not likely to be affected by other drugs you use, but many drugs can interact. Tell your doctor about all your current medicines, including prescription and boin-fbt-fqbtcgu medicines, vitamins, and herbal products. Where can I get more information? Your doctor or pharmacist can provide more information about butenafine topical. Remember, keep this and all other medicines out of the reach of children, never share your medicines with others, and use this medication only for the indication prescribed. Every effort has been made to ensure that the information provided by [employer]') is accurate, up-to-date, and complete, but no guarantee is made to that effect. Drug information contained herein may be time sensitive. [employer] information has been compiled for use by healthcare practitioners and consumers in the [place] and therefore [employer] does not warrant that uses outside of the [place] are appropriate, unless specifically indicated otherwise. [employer] drug information does not endorse drugs, diagnose patients or recommend therapy. [employer] drug information is an informational resource designed [...] effective or appropriate for any given patient. [employer] does not assume any responsibility for any aspect of healthcare administered with the aid of information [employer] provides. The information contained herein is not intended to cover all possible uses, directions, precautions, warnings, drug interactions, allergic reactions, or adverse effects. If you have questions about the drugs you are taking, check with your doctor, nurse or pharmacist. Copyright 8818-9841 [employer]. Version: 5.01. Revision Date: 08/04/2023. cephalexin (sef [...] may report side effects to FDA at 8-822-JIB-1959. What other drugs will affect cephalexin? Tell your doctor about all your other medicines, especially: metformin; or probenecid. This list is not complete. Other drugs may affect cephalexin, including prescription and scdv-vrl-hkhxwcg medicines, vitamins, and herbal products. Not all [...] to ensure that the information provided by [employer]') is accurate, up-to-date, and complete, but no guarantee is made to that effect. Drug information contained herein may be time sensitive. [employer] information has been compiled for use by healthcare practitioners and consumers in the [place] and therefore [employer] does not warrant that uses outside of the [place] are appropriate, unless specifically indicated otherwise. [employer] drug information does not endorse drugs, diagnose patients or recommend therapy. [employer] drug information is an informational resource designed [...] effective or appropriate for any given patient. [facility] does not assume any responsibility for any aspect of healthcare administered with the aid of information [facility] provides. The information contained herein is not intended to cover all possible uses, directions, precautions, warnings, drug interactions, allergic reactions, or adverse effects. If you have questions about the drugs you are taking, check with your doctor, nurse or pharmacist. Copyright 0447-7537 [facility] [employer]. Version: 04.29. Revision Date: 12/29/2022. doxycycline (oral/injection) (DOX mauricio romo) Acticlate, Adoxa, Alodox, Avidoxy, Doryx, Doryx MPC, Lymepak, Mondoxyne NL, Monodox, Morgidox, Morgidox 1f571jq, Morgidox 1s533tk, Okebo, Oracea, Targadox, Vibramycin, Vibramycin Monohydrate What [...] or life-threatening conditions such as anthrax or Pala spotted fever. The benefit of treating a [...] may report side effects to FDA at 4-927-WXV-7761. What other drugs will affect doxycycline? Sometimes it is not safe to use certain medications at the same time. Some drugs can affect your blood levels of other drugs you take, which may increase side effects or make the medications less effective. Other drugs may affect doxycycline, including prescription and xvii-ews-vdtjpsd medicines, vitamins, and herbal products. Tell your [...] to ensure that the information provided by [employer]') is accurate, up-to-date, and complete, but no guarantee is made to that effect. Drug information contained herein may be time sensitive. [employer] information has been compiled for use by healthcare practitioners and consumers in the [place] and therefore [employer] does not warrant that uses outside of the [place] are appropriate, unless specifically indicated otherwise. [employer] drug information does not endorse drugs, diagnose patients or recommend therapy. [employer] drug information is an informational resource designed [...] effective or appropriate for any given patient. [facility] does not assume any responsibility for any aspect of healthcare administered with the aid of information [facility] provides. The information contained herein is not intended to cover all possible uses, directions, precautions, warnings, drug interactions, allergic reactions, or adverse effects. If you have questions about the drugs you are taking, check with your doctor, nurse or pharmacist. Copyright 4648-6405 [employer]. Version: .. Revision Date: 02/02/2023. Education Materials [...] until the rash is all gone. Use soce-hzx-apyognv antifungal powders or sprays on your feet [...] Pus draining from cracks in the skin 8623-4205 [employer]. [address] [place] [address]. All rights reserved. This information is not [...] Boil returns when you are at home 8614-4210 [employer]. [address] [place] [address], [place] [address]. All rights reserved. This information is not intended as a substitute for professional medical care. Always follow your healthcare professional's instructions. Additional Information VACCINATE! IT SAVES LIVES! Members of the community who have not yet received the COVID-19 vaccine and would like to receive it can visit one of [facility] vaccine clinics. There are many vaccine clinic locations within the [facility]. For locations and available times, please visit [email or web address] It is important to note that some COVID mobile vaccine clinics are held outdoors and may be canceled in rainy or stormy conditions. To learn more about pediatric vaccinations (ages 5-11), we invite you to visit the [facility] webpage. https://www.[facility].org/ pages/6688-Uhoxp-Wghphrusklt-Fr lrnkgozh-Zrfww-Zklhdraob.html To learn more about the COVID-19 vaccine, we invite you to visit the CDC website for a list of frequently asked questions. https://www.cdc.gov/coronavirus /2019-ncov/vaccines/faq.html [email or web address] Patient Portal Access Instructions: Stay connected with your healthcare team and access your personal medical information anytime with the [email or web address] Patient Portal. If you would like a full copy of your medical records please contact the [facility] Medical Records Department Tuesday through Tuesday between 8a.m. and 4:30p.m. Please follow the directions below to access the portal: 1.Access the email account you provided upon registration to the [facility].2.Look for an invitation email from [facility].3.Open the email and access the invitation link: Accept Invitation to [employer]4.Fill in the required collier to create your account. Sign into [email or web address] with your username and password that you [...] you will allow to register on the [email or web address] Patient Portal for access to your information. You can also access the [employer] Patient Portal on the [employer]. Simply click on "Health Records" under "Health Data" and then click on the [employer] logo. [...] Call your local pharmacy or go to [email or web address] to find one close to you.3.Make use of household items: Use cat litter or old coffee grounds to dispose medications if other options are not available. Mix your drugs with these household products, seal them in an airtight container and throw it into the garbage. Call [facility]: [phone] to be sure your drugs can be [...] aware that I should contact my doctor. 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: Date/Time: Relationship to Patient: Witness Name/Signature: Date/Time: [facility] Evaluation + Plan note No data available for this section [facility] Evaluation note Diagnosis Displaced comminuted [...] Obesity Obesity, unspecified documented in this encounter [facility] Work Phone: Evaluation note* Diagnosis Displaced comminuted fracture of shaft of right fibula, initial encounter for closed fracture Closed avulsion fracture of medial malleolus of right tibia, initial encounter documented in this encounter [facility] Work Phone: Evaluation note* Diagnosis Displaced comminuted fracture of shaft of right fibula, initial encounter for closed fracture Closed avulsion fracture of medial malleolus of right tibia, initial encounter Displaced comminuted fracture of shaft of right fibula, initial encounter for closed fracture Closed avulsion fracture of medial malleolus of right tibia, initial encounter documented in this encounter [facility] Work Phone: Evaluation noteNo assessment information available [facility] Work Phone: Evaluation note* Diagnosis Displaced comminuted fracture of shaft of right fibula, initial encounter for closed fracture- Primary Closed avulsion fracture of medial malleolus of right tibia with routine healing, subsequent encounter documented in this encounter [facility] Work Phone: Evaluation note* Diagnosis Displaced comminuted fracture of shaft of right fibula, subsequent encounter for closed fracture with routine healing Closed avulsion fracture of medial malleolus of right tibia with routine healing, subsequent encounter documented in this encounter [facility] Work Phone: Refhtn for referral (narrative)No reason for referral [facility] Work Phone: Reason for visit Narrative* Imaging (Routine) - Authorized Specialty Diagnoses / Procedures Referred By Joaquínac t Referred To Contact Radiology Diagnoses Displaced comminuted fracture of shaft of right fibula, initial encounter for closed fracture Closed avulsion fracture of medial malleolus of right tibia, initial encounter Procedures XR ankle right 3+ views Blu Castillo PA-C [address] [address] Department [place] [address] Phone: tel: fax: Referral ID Status Reason Start Date Expiration Date Visits Requested Visits Authorized [id number] Authorized Perform Procedure 11/28/2024 11/28/2025 1 1 [facility] Work Phone: Reason for visit Narrative* Imaging (Routine) - Pending Review Specialty Diagnoses / Procedures Referred By Contfredy t Referred To Contact Radiology Diagnoses Displaced comminuted fracture of shaft of right fibula, subsequent encounter for closed fracture with routine healing Closed avulsion fracture of medial malleolus of right tibia with routine healing, subsequent encounter Procedures XR ankle right 3+ views Blu Castillo PA-C [address] [address] Department [place] [address] Phone: tel: fax: Referral ID Status Reason Start Date Expiration Date Visits Requested Visits Authorized [id number] Pending Review Perform Procedure 02/01/2025 03/03/2026 1 1 [facility] Work Phone: Summary Purpose Family History [...] Patient condition does not warra nt discussion Chief Complaint and Reason for Visit Chief Complaint Admit Date SNF LAB WORK November 07, 2024 4: 00am SNF LAB WORK November 12, 2024 5: 00am LABWORK November 19, 2024 5:00 am SNF LAB WORK November 27, 2024 4:0 0am Additional Source Comments (unrecognized sect ion and content) No Status Records FoundNo Status Records FoundNo Status Records FoundNo Status Records FoundNo Status Records FoundNo Status Records Found INFORMATION SOURCE (unrecogn ized section and content) DATE CREATED AUTHOR 09/03/2023 [facility] DATE CREATED AUTHOR AUTHOR'S ORGANIZ ATION 02/29/2024 [facility] DATE CREATED AUTHOR AUTHOR'S ORGANIZ ATION 12/07/2024 [facility] DATE CREATED AUTHOR AUTHOR'S ORGANIZ ATION 01/11/2025 [facility] DATE CREATED AUTHOR AUTHOR'S ORGANIZ ATION 03/16/2025 [facility] DATE CREATED AUTHOR AUTHOR'S ORGANJOSESITO ATION 03/16/2025 [facility] Reason for Visit (unrecogniz ed section and content) Reason Comments Syncope Ankle Pain Specialty Diagnoses / Procedures Referred By Toby ball Referred To Contact Diagnoses Displaced comminuted fracture of shaft of right fibula, initial encounter for closed fracture Mik Castellanodamaris HernándezDO [address] [place] [address] Phone: tel: fax: [facility] [address] [place] [address] Phone: tel: fax: Referral ID Status Reason Start Date Expiration Date Visits Re quested Visits Authorized [id number] 1 1 Reason Comments Post-op POV Right Ankle ORIF SR11/01/24 Specialty Diagnoses / Procedures Referred By Toby ball Referred To Contact Orthopaedic Surgery / Orthopedic Surgery Diagnoses Displaced comminuted fracture of shaft of right fibula, initial encounter for closed fracture Procedures Follow Up In Orthopaedic Surgery Anna Leung PA-C [address] [place] [address] Phone: tel: fax: Referral ID Status Reason Start Date Expiration Date V isits Requested Visits Authorized [id number] Authorized 11/06/2024 11/06/2025 1 1 Reason Comments Post-op POV Right Ankle ORIF SR11/01/24 Scheduled Active and Recently Administ ered Medications [...] - Reason: Other) 0524 (Given - Provider: Megahnn Johnson RN)1204 (Given - Provider: Enoch Jean-Baptiste RN)1800 (Due) enoxaparin (Lovenox) syringe 30 mg 30 mg, subcutaneous, Every 12 hours, First dose on Tue11/01/24 at 1900 0624 (Given - Provider: Do Varela RN)180 (Given - Provider: Uziel Ibarra RN) 0557 (Given - Provider: Nika Morrell RN)183 (Given - Provider: Uziel Ibarra RN) 0830 [...] Enoch Jean-Baptiste, RIKY)1709 (Given - Provider: Uziel Ibarra, RIKY)2119 (Given - Provider: Meghann Johnson RN) polyethylene [...] on patient preference? Yes 1458 (Return to [facility] - Provider: Uziel Ibarra RN) 0058 (Given [...] Care Teams (unrecognized sec tion and content) Team Status: Active Member Role/Relationship Status Dates No Primary Care Physician Family Provider Active No Primary Care Physician Primary Care Provider Active Team Status: Active Member Role/Relationship Status Dates No Primary Care Physician Primary Care Provider Active Start: November 07, 2024 Dr. Shabnam CACERES MD Attending Provider Active Start: November 07, 2024 Dr. Shabnam CACERES MD Referring Provider Active Start: November 07, 2024 Team Status: Active Member Role/Relationship Status Dates No Primary Care Physician Primary Care Provider Active Start: November 08, 2024 Dr. Shabnam CACERES MD Attending Provider Active Start: November 08, 2024 Team Status: Active Member Role/Relationship Status Dates No Primary Care Physician Primary Care Provider Active Start: November 12, 2024 Dr. Shabnam CACERES MD Attending Provider Active Start: November 12, 2024 Team Status: Inactive Member Role/Relationship Status Dates No Primary Care Physician Primary Care Provider Active Start: November 19, 2024 End: November 19, 2024 Dr. Shabnam CACERES MD Attending Provider Active Start: November 19, 2024 End: November 19, 2024 Team Status: Active Member Role/Relationship Status Dates No Primary Care Physician Primary Care Provider Active Start: November 27, 2024 Dr. Shabnam CACERES MD Attending Provider Active Start: November 27, 2024 Dr. Shabnam CACERES MD Referring Provider Active Start: November 27, 2024 Loan Inspector Relationship Specialty Start Date End Date Generic Provider, No Assigned MD Christopher NONE [facility] [place] [address] PCP - General Journalism Teacher 10/31/24 Loan Inspector Relationship Specialty Start Date End Date Generic Provider, No [place] [address] PCP - General Journalism Teacher 10/31/24 Sara Garcia [facility] Fire Extinguisher InstallerSterilization Specialist 11/06/24 Goals (unrecognized section and content) Goals may be documented in a n alternate section FOR RECORDS PERTAINING TO PATIENTS WHO ARE [...] BE BASED ON THE PRIMARY CLINICAL RECORDS. [facility] [employer] [facility]. provides no warranty or guarantee of the accuracy or completeness of information in this document.
== END | disposition home or self-care (01) ==
LOC: SL 19:47
PROVIDERS: Referring Provider Family Medicine; Visit Provider Family Medicine
DX: G47.30 Sleep apnea, unspecified (principal)
CPT/HCPCS: 95810; 95811